=== PATIENT | male | born 1945 | race Caucasian/White ===

== ENCOUNTER 2019-04-08 08:23 | Outpatient (CLI) | payer MEDICARE, MEDICAID, SELFPAY | END 2019-04-08 08:24 | disposition home or self-care (01) | LOC: ONCMED 08:34 | PROVIDERS: Family Provider Nurse Practitioner; PCP Nurse Practitioner; Visit Provider Internal Medicine Hematology & Oncology | DX: Z45.2 Encounter for adjustment and management of vascular access device (principal) | CPT/HCPCS: 96523 ==

== ENCOUNTER 2019-05-06 07:52 | Outpatient (CLI) | payer MEDICARE, MEDICAID, SELFPAY | END 2019-05-06 07:53 | disposition home or self-care (01) | LOC: ONCMED 07:54 | PROVIDERS: Family Provider Nurse Practitioner; PCP Nurse Practitioner; Visit Provider Nurse Practitioner | DX: Z45.2 Encounter for adjustment and management of vascular access device (principal) | CPT/HCPCS: 96523 ==

== ENCOUNTER → 2019-06-01 12:43 | Outpatient (BNVA) | payer MEDICARE, MEDICAID, SELFPAY | PROVIDERS: Family Provider Nurse Practitioner; PCP Nurse Practitioner; Visit Provider Urology | DX: C61 Malignant neoplasm of prostate (principal); N40.1 Benign prostatic hyperplasia with lower urinary tract symptoms; R35.1 Nocturia | CPT/HCPCS: 81001; 84153 ==

== ENCOUNTER 2019-08-23 09:59 | Outpatient (CLI) | payer MEDICARE, MEDICAID, SELFPAY ==
[2019-08-24 11:42] LABS: Angiotensin Converting Enzyme 50 U/L (9-67)
[2019-08-30 13:25] LABS: Blood Urea Nitrogen 16 mg/dL (8-23)
== END 2019-08-23 10:00 | disposition home or self-care (01) ==
PROVIDERS: PCP Nurse Practitioner; Visit Provider Internal Medicine Critical Care Medicine
DX: D86.9 Sarcoidosis, unspecified (principal)
CPT/HCPCS: 82164

== ENCOUNTER 2019-08-30 12:45 | Outpatient (CLI) | payer MEDICARE, MEDICAID, SELFPAY ==
--- NOTE | 2019-08-30 13:00 | CT_ITS ---
WS: [id number] NONCONTRAST AND CONTRAST-ENHANCED CT OF THE CHEST TECHNIQUE: Noncontrast and contrast-enhanced CT of the chest with coronal and sagittal reformatted im ages. CLINICAL INFORMATION: Lung nodule COMPARISON: None. DLP: 1841.[address] scans at [facility] use at least one of these dose optimization techniques: automat ed exposure control; mA and/or kV adjustment per patient size (includes targeted exams where dose is matched to clinical indication); or iterative reconstruction. FINDINGS: Numerous noncalcified pulmonary nodules consistent with metastatic disease the largest in the right l ower lobe posteriorly measuring 2.4 x 2.0 cm. This previously on the prior PET/CT measured 1.5 x 1.0 cm. Additional large right suprahilar mass with narrowing of the right proximal upper lobe bronchus m easuring 3.5 x 2.4 CM. Previously this measured 2.5 x 1.6 cm. Numerous progressed and new noncalcified pulmonary nodules in both lungs. Additional notable nodules in the right upper lobe anteriorly measuring 1.4 cm, right lower lobe posteriorly measuring 1.4 and 0 .6 cm. Numerous smaller left upper lobe nodules and left lower lobe subpleural nodules the largest me asuring 1.2 CM. Findings are consistent with progression of disease. Normal caliber thoracic aorta. Right hilar lymphadenopathy. No axillary lymphadenopathy. Coronary milla cification. Adrenal glands are normal. Small esophageal hiatal hernia. Cholecystectomy clips. Tiny ri ght high attenuation renal cortical lesion measuring 5 mm likely small hemorrhagic cyst. Mild thoraci c kyphosis. Chronic right rib fractures with callus formation. CT/CT chest wo/w con [id number] IMPRESSION: 1. Evidence of interval progression of disease since the prior PET/CT June. 2. Largest nodules in the right lower lobe posteriorly and right supra hilum w ith narrowing of the right upper lobe bronchus described above. 3. Numerous additional new and progressed pulmonary nodules throughout both jeff ngs. 4. Right hilar lymphadenopathy. 5. No axillary lymphadenopathy.
[2019-08-30] MEDS: iohexol 300 mg/mL 100 mL Btl IV (13:35)
== END 2019-08-30 12:46 | disposition home or self-care (01) ==
LOC: RADWPI 12:50
PROVIDERS: PCP Nurse Practitioner; Visit Provider Internal Medicine Critical Care Medicine
DX: R91.1 Solitary pulmonary nodule (principal); R59.1 Generalized enlarged lymph nodes
CPT/HCPCS: 71270; 82565; 84520; Q9967

== ENCOUNTER 2019-09-02 05:55 | Day surgery (SDC) | payer MEDICARE, MEDICAID, SELFPAY ==
[2019-09-01 14:01] VITALS: BMI 27.3
[2019-09-02] VITALS (12 sets, daily range): BP systolic 102–144; BP diastolic 67–86; PULSE 75–116; RESP 15–22; TEMP 36.1–36.4; O2SAT 93–99
[2019-09-02] MEDS: sodium chloride 0.9% 1,000 ML 30 ML IV (06:21)
--- NOTE | 2019-09-02 06:44 | P.ANESASSM_ITS ---
Pre-Anesthetic Assessment Pre-Anesthetic Assessment: Height/Weight: Height 1.75 m Weight 83.915 kg Temp Pulse Resp BP Pulse Ox 97.1 F L 78 18 144/86 95 09/02/19 06:09 09/02/19 06:09 09/02/19 06:09 09/02/19 06:09 09/02/19 06:09 Preop Diagnosis: Metastatic cancer Proposed Procedure: Operation Date: 09/02/19 07:25 Proposed Procedures p Ebus [id number]/ D86.9(Not Applicable) - Linda Esquivel MD Last intake: Intake Last Liquid Date 09/02/19 Last Liquid Time 00:15 Last Solid Date 09/01/19 Last Solid Time 23:30 Social: Social History: Tobacco and No alcohol Exam: Pre-Anes Outpt Exam: alert, oriented x 3, clear to auscultation bilater ally (bilat wheezes) and regular rate & rhythm Airway: Submandibular: WNL Cervical ROM: WNL MP: 2 Dentition: Other (upper edenturless, very poor lowers) History/ROS: No significant history except as noted Pulmonary: Pulmonary: COPD and GARAY CV/HEM: CV/HEM: None reported : : None reported Hepatic: Hepatic: None reported GI: GI: GERD (controlled) Metabolic: Metabolic: None reported Musc/skel: Musc/skel: None reported Neuropsych: Neuropsych: Dementia Comments: [place] Anesthetic Plan: ASA status: 4 Anesthesia: Anesthesia Evaluation and General Risk of > 500 ml blood loss (7ml/kg in children): No Meds/Allergies Current Medications: Current Medications Generic Name Dose Route Start Last Admin Trade Name Freq PRN Reason Stop Dose Admin Sodium Chloride 1,000 mls @ 30 ml s/hr 09/02/19 06:15 09/02/19 06:21 Sodium Chloride 0.9% IV 09/03/19 06:14 30 mls/hr .Q24H MARTÍNEZ Administration PFSH Anesthesia PFSH: Medical History BPH loc w urin obs/LUTS Elevated PSA H/O colon cancer, stage III Nocturia Port-A-Cath in place Prostate CA Urinary retention Urinary urgency Surgical History History of liver biopsy S/P appendectomy S/P cholecystectomy S/P colon resection S/P hernia repair Family History Mother , 62 CAD (coronary artery disease) Diabetes Father , 74 Cancer Colon Social History Smoking and tobacco status: current every day smoker cigarettes Packs smoked per day: 1 Years cigarettes smoked: 45 Quit status (tobacco): has tried quititng Alcohol intake: never Lives independently: Yes Household members: none Marital status: Current occupational status: retired History of recent travel: No Current gender identity: Male Data Anesthesia Cardiac Studies: No Data to Display
--- NOTE | 2019-09-02 06:48 | W.PM.OPSUD ---
Surgery/Procedure H&P Update DATE OF PROCEDURE: September 02, 2019 DATE H&P PERFORMED: 08/23/19 H&P UPDATE INFORMATION: I have reviewed H&P completed within last 30 days, I have examined patient prior to procedure and No changes to prior documentation PREOP DIAGNOSIS: Metastatic cancer PLANNED PROCEDURE: Bronchoscopy and endobronchial sound guided transbronchial aspiration of lymph nodes Operation Date: 09/02/19 07:25 Proposed Procedures p Ebus [id number]/ D86.9(Not Applicable) - Biplab MD Alvin
[2019-09-02] MEDS: ipratropium 0.5 mg/2.5 mL Neb INHALATION ×2 (07:15→09:14)
[2019-09-02] MEDS: lidocaine 1% INJ 20 mL INJECTION (08:14)
[2019-09-02] MEDS: EPINEPHrine 1 mg/mL INJ XX (08:15)
--- NOTE | 2019-09-02 09:05 | P.OP_ITS ---
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 Procedure: Name of the procedure: Bronchoscopy with inspection of the airway, endobronchial biopsies,endobronchial ultrasound-guided transbronchial needle aspiration of lymph nodes and control of bleeding. Indication: Multiple pulmonary nodules with right hilar lymphadenopathy suggestive of malignancy in a patient with a previous diagnosis of granulomatous lymphadenitis. Anesthesia: General anesthesia. Local anesthesia: The yesenia in the right and left mainstem bronchi were anesthetized with 1% lidocaine, 3 mL. Description of the procedure: The procedure was explained to the patient and the consent was obtained. The patient was brought to the OR. The patient underwent endotracheal intubation for general anesthesia. Following induction of general anesthesia, the bronchoscope was advanced through the ET tube. The lower trachea appeared to be normal, no endotracheal lesion was seen. The yesenia was sharp. The yesenia, the right and left mainstem bronchi are anesthetized with 1% lidocaine. In a systematic manner bilateral bronchial tree was then examined. The bronchoscope was advanced into the left mainstem bronchus. There was no erythema,mucus or cobblestoning. The left upper lobe, lingula and left lower lo be bronchi were examined up to the third subsegmental level and no abnormalities were identified. There is no endobronchial lesion, active bleeding or mucous plug. The bronchoscope was then introduced into the right mainstem bronchus. Irregular mucosa at the right secondary yesenia narrowing the entrance to the right upper lobe bronchus was identified. Dilated hypervascularity around the lesion was noted as well. The lesion bled with minimal touch. The bronchoscope was not advanced beyond the lesion into the right upper lobe. The right middle lobe and right lower lobe bronchi were examined up to the third subsegmental level and no abnormalities were identified. Endobronchial biopsies were performed from the right secondary yesenia. 4 samples were obtained. The endobronchial ultrasound was introduced through the ET tube. Large lymphadenopathy in the right hilar area was identified. Transbronchial needle aspiration was performed from 10 are, 7, 11 R lymph node groups. Samples: 1. The endobronchial biopsies are sent for histopathology. 2. The transbronchial needle aspiration of the aforementioned lymph node groups were sent for cytology. Complications: There was no immediate complications. The patient was extubated and brought to the PACU in stable condition. Follow-up: 1. Please follow-up with me in 2 weeks time.
[2019-09-02] MEDS: ipratropium-albuterol 3 mL Neb INHALATION (09:57)
[2019-09-02] MEDS: FUROsemide 10 mg/mL SDV 2mL 20 MG IVP (09:59)
== END 2019-09-02 10:30 | disposition home or self-care (01) ==
PROVIDERS: PCP Nurse Practitioner; Visit Provider Internal Medicine Critical Care Medicine
PROC: BB4BZZZ Ultrasonography of Pleura (ICD-10-PCS; CPT 31625; principal; 2019-09-02 07:25)
DX: I88.8 Other nonspecific lymphadenitis (principal); R91.8 Other nonspecific abnormal finding of lung field; J44.9 Chronic obstructive pulmonary disease, unspecified; K21.9 Gastro-esophageal reflux disease without esophagitis; N40.1 Benign prostatic hyperplasia with lower urinary tract symptoms; N13.8 Other obstructive and reflux uropathy; Z85.46 Personal history of malignant neoplasm of prostate; Z82.49 Family history of ischemic heart disease and other diseases of the circulatory system; Z83.3 Family history of diabetes mellitus; F17.210 Nicotine dependence, cigarettes, uncomplicated
CPT/HCPCS: 31625; 31653; 12345; 80500; 88112; 88305; 94640; J0171; J1940; J2001; J2405; J2704; J2710; J3490; J7030; J7611; J7644

== ENCOUNTER 2019-10-28 05:52 | Day surgery (SDC) | payer MEDICARE, MEDICAID, SELFPAY ==
[2019-10-27 18:03] VITALS: BMI 29.7
[2019-10-28] VITALS (11 sets, daily range): BP systolic 114–150; BP diastolic 76–100; PULSE 77–110; RESP 14–24; TEMP 36.1; O2SAT 91–95
[2019-10-28] MEDS: sodium chloride 0.9% 1,000 ML 30 ML IV (06:13)
--- NOTE | 2019-10-28 06:40 | ANES.PREANE2 ---
Pre-Anesthetic Assessment Pre-Anesthetic Assessment: Height/Weight: Height 1.75 m Weight 91.172 kg Temp Pulse Resp BP Pulse Ox 97.0 F L 88 18 114/85 94 10/28/19 06:00 10/28/19 06:00 10/28/19 06:00 10/28/19 06:00 10/28/19 06:00 Preop Diagnosis: Metastatic cancer Proposed Procedure: Operation Date: 10/28/19 07:00 Proposed Procedures p Veran(Not Applicable) - Linda Esquivel MD s Ebus(Not Applicable) - Linda Esquivel MD Familial anesthetic complications: None Was Beta Charis taken within 24 hours: N/A Last intake: Intake Last Liquid Date 10/27/19 Last Liquid Time 20:00 Last Solid Date 10/27/19 Last Solid Time 20:00 Social: Social History: Tobacco Exam: Pre-Anes Outpt Exam: alert, oriented x 3, clear to auscultation bilaterally and regular rate & rhythm Airway: Cervical ROM: WNL MP: 3 Dentition: Other Additional comments: broken teeth, poor dentition Pulmonary: Pulmonary: COPD Comments: sarcoidsisis, lung nodule : : None reported Hepatic: Hepatic: None reported GI: GI: GERD Metabolic: Metabolic: None reported Musc/skel: Musc/skel: None reported Neuropsych: Neuropsych: None reported Anesthetic Plan: ASA status: 3 Anesthesia: General Risk of > 500 ml blood loss (7ml/kg in children): No Meds/Allergies Current Medications: Current Medications Generic Name Dose Route Start Last Admin Trade Name Freq PRN Reason Stop Dose Admin Sodium Chloride 1,000 mls @ 30 ml s/hr 10/28/19 06:00 10/28/19 06:13 Sodium Chloride 0.9% IV 10/29/19 05:59 30 mls/hr .Q24H MARTÍNEZ Administration PFSH Anesthesia PFSH: Medical History (Updated 09/15/19 @ 11:00 by Linda Esquivel MD) BPH loc w urin obs/LUTS Elevated PSA H/O colon cancer, stage III Nocturia Port-A-Cath in place Prostate CA Urinary retention Urinary urgency Surgical History History of liver biopsy S/P appendectomy S/P cholecystectomy S/P colon resection S/P hernia repair Family History Mother , 62 CAD (coronary artery disease) Diabetes Father , 74 Cancer Colon Social History Smoking and tobacco status: current every day smoker cigarettes Packs smoked per day: 1 Years cigarettes smoked: 45 Quit status (tobacco): has tried quititng Alcohol intake: never Lives independently: Yes Household members: none Marital status: Current occupational status: retired History of recent travel: No Current gender identity: Male Data Anesthesia Cardiac Studies: No Data to Display
[2019-10-28] MEDS: ipratropium 0.5 mg/2.5 mL Neb INHALATION (06:56)
--- NOTE | 2019-10-28 06:57 | W.PM.OPSFHP ---
Same Day Surgery H&P Indication for Procedure/HPI DATE OF PROCEDURE: October 28, 2019 CHIEF COMPLAINT/INDICATIONFOR SURGICAL PROCEDURE: Suspected metastatic cancer PREOP DIAGNOSIS: Metastatic cancer PLANNED PROCEDRUE: Bronchoscopy with inspection of the airway, possible endobronchial and transbronchial biopsies, bronchoalveolar lavage, endobronchial ultrasound-guided transbronchial needle aspiration of lymph nodes and control of bleeding. Operation Date: 10/28/19 07:00 Proposed Procedures p Veran(Not Applicable) - Linda Esquivel MD s Ebus(Not Applicable) - Linda Esquivel MD This is a 73-year-old gentleman with a history of rectal cancer. The patient was found to have midsternal and hilar lymphadenopathy on previous CT scan and underwent medicine anoscopy and biopsy of the 4R lymph node station which was consistent with granulomatous lymphadenitis. The patient was diagnosed with sarcoidosis. During his last office visit in August I had repeated the CT scan of his chest. The chest CT scan revealed numerous noncalcified pulmonary nodule with the largest one measuring 2.4 x 2 cm.The patient also had right suprahilar lesion with narrowing of the right upper lobe bronchus. There is also right hilar lymphadenopathy. I had performed a bronchoscopy and EBUS. TheRight secondary yesenia endobronchial biopsy revealed benign bronchial mucosa with chronic bronchitis and focal squamous metaplasia. There was no malignancy or granulomas. The endobronchial ultrasound-guided transbronchial needle aspiration of station 11 R7 and 10 are did not reveal any malignancy. Station 11 R lymph node biopsy revealed significant macrophages and histiocytes. On the PET scan the patient had increased activity of the pulmonary nodules as well as lymph nodes. There is concern for metastatic cancer. The patient is here today for repeat bronchoscopy to rule out malignancy. Patient is complaining of hemoptysis for the past few days. Medications/Allergies* Home Medications Medication Instructions Recorded Confirmed Type omeprazole magnesium 20 mg 20 mg PO DAILY 06/01/19 10/27/19 History tablet,delayed release Allergies/Adverse Reactions Allergy/AdvReac Type Severity Reaction Status Date / Time No Known Allergies Allergy Verified 09/15/19 10:53 Current Medications: Generic Name Dose Route Start Last Admin Trade Name Freq PRN Reason Stop Dose Admin Sodium Chloride 1,000 mls @ 30 mls/hr 10/28/19 06:00 10/28/19 06:13 Sodium Chloride 0.9% IV 10/29/19 05:59 30 mls/hr .Q24H MARTÍNEZ Administration Pertinent History/Comorbid Conditions* Medical History (Updated 09/15/19 @ 11:00 by Linda Esquivel MD) BPH loc w urin obs/LUTS Elevated PSA H/O colon cancer, stage III Nocturia Port-A-Cath in place Prostate CA Urinary retention Urinary urgency Surgical History (Updated 08/23/19 @ 09:48 by Linda Esquivel MD) History of liver biopsy S/P appendectomy S/P cholecystectomy S/P colon resection S/P hernia repair Family History (Updated 05/27/19 @ 08:42 by Maggi Mcneal RN) Father, 74 Mother, 62 Diabetes Mother CAD (coronary artery disease) Mother Cancer Father Colon Social History Smoking and tobacco status: current every day smoker cigarettes Packs smoked per day: 1 Years cigarettes smoked: 45 Quit status (tobacco): has tried quititng Alcohol intake: never Lives independently: Yes Household members: none Marital status: Current occupational status: retired History of recent travel: No Current gender identity: Male Pertinent Exam Findings alert and oriented x 3 General: Patient is in no acute distress. Patient is very hard of hearing and difficult to communicate with Neck: No JVD, no cervical or supraclavicular lymphadenopathy. Respiratory: Inspection: No visible deformity of the chest wall Palpation: Trachea is mildly deviated to the right, bilateral symmetric expansion Percussion: Bilateral tympanic percussion note both anterior and posteriorly Auscultation: Bilateral vesicular breath sound with prolonged expiration, no crackles or wheezing but occasional rhonchi Cardiovascular: Regular rate and rhythm, S1-S2 present, distant heart sound, no murmur,no peripheral edema Abdomen: Soft, nontender, nondistended, positive bowel sound Lymphatic: The axillary and inguinal lymph node groups are not examined Neuro: Mental status is normal, no gross cranial nerve deficit, normal motor and coordination. The patient is severely hearing impaired. Recommendations Surgery/Procedure today Coding Level of Care Code Acute Patient Safety Officer for Izabel Rojas
[2019-10-28] MEDS: lidocaine 1% INJ 20 mL SUBCUT (07:20)
--- NOTE | 2019-10-28 08:33 | PM.OP ---
Operative Report Date of procedure: October 28, 2019 Pre-op Diagnosis: Metastatic cancer Post-op diagnosis: same Brief History: This is a 73-year-old gentleman with history of rectal cancer coming in for bronchoscopic evaluation for suspected metastatic cancer. Procedure: Name of the procedure: Bronchoscopy with inspection of the airway, bronchoalveolar lavage, endobronchial biopsies, Cytobrush, endobronchial ultrasound-guided transbronchial needle aspiration of lymph nodes and control of bleeding. Indication: Pulmonary nodule in perilymphatic distribution and hilar and mediastinal lymphadenopathy with calcification. Anesthesia: General anesthesia. Local anesthesia: The yesenia in the right and left mainstem bronchi were anesthetized with 1% lidocaine, 3 mL. Description of the procedure: The procedure was explained to the patient and the consent was obtained. The patient was brought to the OR. The patient underwent endotracheal intubation for general anesthesia. Following induction of general anesthesia, the bronchoscope was advanced through the ET tube. The lower trachea appeared to be normal, no endotracheal lesion was seen. The yesenia was sharp. The yesenia, the right and left mainstem bronchi are anesthetized with 1% lidocaine. In a systematic manner bilateral bronchial tree was then examined. The bronchoscope was advanced into the left mainstem bronchus. There was no erythema,mucus or areas of cobblestoning. The left upper lobe, lingula and left lower lobe bronchi were examined up to the third subsegmental level and no abnormalities were identified. The bronchoscope was then introduced into the right mainstem bronchus. A fungating mass was seen at the orifice of the right upper lobe bronchus with complete occlusion of the airway. The right middle lobe and right lower lobe bronchi were examined up to the third subsegmental level and no abnormalities were identified. Endobronchial biopsies were performed from the right upper lobe endoluminal lesion. Multiple samples are obtained. Bronchial washing was performed from the right upper lobe bronchus. Endobronchial biopsies were performed from the left upper lobe. 3 specimens were obtained. The endobronchial ultrasound was introduced through the ET tube. Mediastinal and hilar lymphadenopathy was identified with the ultrasound. Transbronchial needle aspiration was performed from 7, 10 R lymph nodes. Samples: 1. Bronchoalveolar lavage specimen was sent for cytology. 2. The endobronchial biopsies are sent for histopathology. 3. The transbronchial needle aspiration of the aforementioned lymph node groups were sent for cytology. Complications: There was no immediate complications. There is no significant bleeding. The patient was extubated and brought to the PACU in stable condition.
[2019-10-28] MEDS: EPINEPHrine 1 mg/mL INJ XX (08:58)
--- NOTE | 2019-10-31 06:58 | SUR.OPER ---
10/28/19 AT 0830 BALLOON REMOVED INTACT FROM EBUS [facility]
== END 2019-10-28 09:58 | disposition home or self-care (01) ==
PROVIDERS: PCP Nurse Practitioner; Visit Provider Internal Medicine Critical Care Medicine
PROC: BB4BZZZ Ultrasonography of Pleura (ICD-10-PCS; 2019-10-28 07:00)
DX: C20 Malignant neoplasm of rectum (principal); C78.00 Secondary malignant neoplasm of unspecified lung; N40.1 Benign prostatic hyperplasia with lower urinary tract symptoms; N13.8 Other obstructive and reflux uropathy; Z85.46 Personal history of malignant neoplasm of prostate; J44.9 Chronic obstructive pulmonary disease, unspecified; K21.9 Gastro-esophageal reflux disease without esophagitis; F17.210 Nicotine dependence, cigarettes, uncomplicated
CPT/HCPCS: 12345; 31625; 31627; 88112; 88173; 88305; 94640; C1713; J0171; J1100; J2370; J2405; J2704; J2710; J3010; J3490; J7030; J7611; J7644

== ENCOUNTER 2019-11-08 13:41 | Outpatient (CLI) | payer MEDICARE, MEDICAID, SELFPAY ==
--- NOTE | 2019-11-08 15:55 | ONC FU_ITS ---
follow up note Patient: Oswaldo Khan Unit #: [id number]: 1945 Dicatated By: Paula Singh M.D.Date of Visit:Nov 08, 2019 Onc Med Follow-up/Prog Note History of Present Illness: is a 72-year-old gentleman with history of abdominal pain and rectal bleed underwent colonoscopy and was found to have a rectal mass. A biopsy was obtained and it confirmed adenocarcinoma. Mr Khan then underwent low anterior resection on 03/05/2017. The final pathology report showed invasive adenocarcinoma , tumor invades perirectal adipose and 1 out of 18 lymph nodes was positive with extranodal extension and no loss of nuclear expression of MMR protein . Mr Khan also has history of elevated PSA. On 03/12/2017 his PSA was 35.20. As per patient he has seen Dr. Sunil Martinez , urologist, who is following him and CT scan of abdomen pelvis done on 03/19/2017 showed some prominent retroperitoneal lymph nodes somewhat more prominent than in 2013 Mr Khan took combined chemoradiation for 3 days the first week but then accidentally pulled his Mcarthur cath and sustained urethral injury. He was evaluated by Dr. Martinez and underwent cystoscopy exam and reinsertion of Mcarthur cath, during this time combined chemoradiation therapy was on hold. He resumed 4 weeks after . Patient was advised to take Xeloda daily for 5 days per week during radiation therapy. His Xeloda daily the days of radiation only was held few days due to persistent diarrhea. He concluded his chemoradiation on 11/03/2017. The diarrhea resolved at that time. Mr. Khan has been advised to pursue adjuvant chemotherapy with FOLFOX. had a long discussion regarding the role of adjuvant chemotherapy. he agreed to get Port-A-Cath placement but then at the last minute he changed his mind. Since that time though, he has agreed to pursue the recommended adjuvant chemotherapy. He completed 2 cycles of modified FOLFOX as of 03/04/2018. At his 03/16/2018 appointment, he stated had been having increased abdominal pain and decreased energy. He stated that he did not complete the full 2 days of the fluorouracil pump last one and this he felt like it was making me feel pretty bad . CT scan of the abdomen was done on on 03/19/2018 show stable rectosigmoid anastomosis with no recurrent or adjacent adenopathy. Moderate diffuse constipation. , at the patient's request and and his refusal to continue with 5-FU infusion, changed the chemotherapy plan of care to XELOX on 03/23/2018 and with the plan to give him 6 cycles. Mr. Khan is tolerated it well at this time. 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 He has completed 5/6 cycles thus far .At patient's request Adjuvant chemotherapy with xelox concluded on 07/05/2018 CT scan of abdomen pelvis done on 09/23/2018 showed no acute findings but 1.3 cm nodule in the right lower lobe of the lung. CT PET scan done on 11/06/2018 showed enlarged prostate with diffusely increase uptake Malignant appearing right lung nodules, most likely from colonic carcinoma Malignant mediastinal lymph nodes, most likely from colonic carcinoma No evidence for local prostate metastatic nodes. Normal activity at rectal anastomosis. Since his last visit to oncology clinic patient has seen Dr. Esquivel stamp maker who did bronchoscopy and patient was diagnosed with sarcoidosis which was treated with some success and follow-up CT scan of chest done on August 30, 2019 showed evidence of interval progression of disease with bilateral pulmonary nodules largest nodule in the right lower lobe posteriorly and right suprahilar with narrowing of right upper lobe bronchus and numerous additional new and progressive pulmonary nodules throughout both lungs right hilar lymphadenopathy, patient underwent bronchoscopy and endobronchial ultrasound-guided transbronchial needle aspiration of station 11 R, showed significant macrophages and histiocytes but no malignancy but there was a concern about possibility of malignancy so patient underwent second bronchoscopy on October 28, 2019 which showed a fungating mass was seen at the orifice of right upper lobe bronchus with complete occlusion of airways. The right middle lobe and right lower lobe bronchi were examined up to third subsegmental with no abnormality. Biopsy was obtained came back positive for metastatic colorectal adenocarcinoma as immunohistochemistry stain were positive for CK20 and CDX2.. Came for follow-up, denies any specific complaints no hemoptysis or hematemesis, no headaches or blurred vision, no jaundice, no diarrhea or constipation, no melena or hematochezia, appetite is reasonable, still has persistent fingertips numbness not in the lower extremity. Medications: Ibuprofen 3 Tablet (of 200 mg) Oral daily PRN, PriLOSEC Capsule Delayed Release Oral daily Allergies: No Known Allergies. Review of Systems: Constitutional - His energy level is fair. Appetite is good and weight is stable. No fever, chills, hot flashes, or night sweats, ENMT - He has sinus congestion/drainage. No mouth sores. No sore throat or difficulty swallowing, Hematologic/Lymphatic - No abnormal bruising or bleeding, Respiratory - He has shortness of breath with activity. He still has cough. No pleuritic pain or hemoptysis, Cardiovascular - No angina pain. No palpitations, Gastrointestinal - No nausea or vomiting. No heartburn or acid reflux. No diarrhea and constipation. No blood in the stool or black stools, Genitourinary (M) - No dysuria or hematuria. He has urinary frequency. No urgency or incontinence, Musculoskeletal - No joint or bone pain, Integumentary - No skin ulcers or open wounds. Denies any rash or skin lesions, Neurologic - No headache or dizziness. No numbness/paresthesias or other focal neurologic symptoms, Psychiatric - No anxiety or depression. No insomnia. Vital Signs: Performed on Nov 08, 2019 14:00 Height - 70.00 in Weight - 195.0 lbs (HIGH) BSA - 2.06 sq.m BMI - 27.98 Temperature - 97.6 F (LOW) Pulse - 105 /min (HIGH) Respiration - 20 /min BP - 129/81 mm(hg) O2 Sat - 96 % Pain - 0 Performance Status: 1 - No physically strenuous activity, but ambulatory and able to carry out light or sedentary work (e.g. office work, light house work). (ECOG) Physical Examination: ENMT - No mouth sores, no thrush, no jaundice, Respiratory - Poor air entry, otherwise clear, Cardiovascular - Regular rate and rhythm of heart, Abdomen - Soft, bowel sounds present, Extremities - No visible edema. Lab/Imaging: Most recent lab results are not available for this patient. Impression: Recurrent colorectal adenocarcinoma involving bilateral lungs and mediastinum, per bronchoscopy done on October 28, 2019 which showed fungating mass in right upper bronchus and immunohistochemistry confirmed CK20, CDX positive. History of sarcoidosis h/o Invasive adenocarcinoma of upper rectum status post APR on 03/05/2017 final pathology showed tumor size 5.5 x 5.4 cm low-grade, tumor invades perirectal adipose p T3, lymphovascular invasion present, no perineural invasion seen 1 out of 18 positive lymph nodes N1a , extranodal extension present N1 stage IIIA No loss of nuclear expression of MMR protein Elevated PSA, on 03/12/2017 it was 35.20 with prostate enlargement, being followed by Dr. Martinez. s/p chemoradiation with Xeloda as chemosensitizer. till 11/03/17 discussed with patient regarding the role of adjuvant chemotherapy in stage IIIa rectal cancer, as literature has shown adjuvant chemotherapy improves disease-free survival. Patient has been reluctant to consider chemotherapy because of severe diarrhea during chemoradiation for rectal CA. He was assured that we will adjust/modify his adjuvant chemotherapy to make it tolerable. Patient, now agreed to get port placement and for adjuvant chemotherapy modified FOLFOX every 2 weeks ???12. All the side effect and possible benefits were discussed in detail again and patient expressed understanding. Mr Khan agreed. He was referred back to Dr. Merritt for Port-A-Cath placement and began his first cycle of FOLFOX on 02/09/2018 .Patient developed abdominal pain for which he underwent CT scan of abdomen on 03/19/2018 showed moderate constipation, and stable rectosigmoid anastomosis with no recurrent mass or adjacent adenopathy and bilateral lower lobe pulmonary nodules are stable since 02/03/2017. No evidence of metastatic disease elsewhere. Following day patient had large bowel movement and since then no more abdominal pain. Patient expressed intolerance to 5-FU infusion chemotherapy and also consider it inconvenient so requesting Xeloda pills instead of 5-FU infusion. His treatment plan was changed to XELOX beginning 03/23/2018. He has tolerated it well thus far. He has now completed5 of the planned [address] PET scan done on 11/06/2018 showed prostate is enlarged, measuring 6 cm in diameter with diffusely increased FDG activity, most intense in the central prostate. Normal tracer activity at the rectal anastomosis There are 2 pulmonary nodules in the right lower lobe and one in the right upper lobe, the index nodule in the right lower lobe measuring 1.1 x 1.6 cm with SUV of 3.5. Most consistent with metastatic disease, likely from colonic primary. Multiple hypermetabolic mediastinal lymph nodes are present, consistent with metastatic disease, in the inferior right perihilar 1.9 cm, 5.2 SUV. Subcarinal, prevascular, right paratracheal, 1.9 cm, 6.8 SUV. Right hilar territories. Subcentimeter nodes are also noted in the superior right paratracheal region. Too small to characterize. Plan: . 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 MMR D/MSI status, if positive, may consider pembrolizumab Or nivolumab or HER-2/peggy status, if positive then Herceptin based regimen also check K-qasim/Nras /BRAF status. While it may take 3 to 4 weeks to get reports back but patient and his son wants to start some form of treatment as soon as possible, in that case we will consider a Avastin/FOLFIRI, considering his age and comorbid condition we will modify his FOLFIRI dose and titrate up as tolerated all the side effects, possible benefits associated with a Avastin/FOLFIRI were discussed including but not limited to nausea vomiting, hair loss, bone marrow suppression, diarrhea especially with irinotecan, worsening of peripheral neuropathy, liver toxicity, skin rash, jaundice, hand-foot syndrome especially with 5-FU mouth sores diarrhea, were discussed, further teaching will be done by chemotherapy nurse. Also discussed about hospice care, patient wants to try treatment and if he could not tolerate or there is a disease progression then he will consider. Patient still smoking, he was advised to quit smoking and was offered any assistance he may need. Patient will return to clinic in 1 week with CBC CMP and CEA, Signed By: Paula Singh M.D. <<Signature on File>>
[2019-11-08 16:30] LABS: Basophils # 0.1 10^3/uL (0.0-0.1); Basophils % 1.3 %; Eosinophils # 0.2 10^3/uL (0.0-0.8); Eosinophils % 2.1 %; Hemoglobin 13.3 g/dL (11.7-16.6); Lymphocytes # 1.6 10^3/uL (0.8-4.8); Lymphocytes % 16.7 %; Mean Corpuscular HGB Conc 32.4 g/dL (30.0-36.0); Mean Corpuscular Hemoglobin 26.2 pg (28.0-34.0); Mean Corpuscular Volume 80.9 fL (80-94); Mean Platelet Volume 10.1 fL (7.4-10.4); Monocytes # 0.7 10^3/uL (0.2-0.9); Monocytes % 7.7 %; Neutrophils # 6.84 10^3/uL (1.8-7.7); Neutrophils % 71.7 %; Nucleated Red Blood Cells % 0 %; Platelet Count 325 10^3/cmm (130-400); Red Blood Count 5.07 10^6/uL (4.1-5.3); Red Cell Distribution Width 14.5 % (12.1-15.1); White Blood Count 9.5 10^3/uL (4.0-10.0)
[2019-11-08 17:02] LABS: Alanine Aminotransferase 23 U/L (0-41); Albumin Level 4.3 g/dL (3.5-5.2); Alkaline Phosphatase 113 IU/L (40-130); Aspartate Amino Transferase 17 U/L (0-40); Blood Urea Nitrogen 14 mg/dL (8-23); Calcium 9.5 mg/dL (8.5-10.5); Carbon Dioxide 22 mmol/L (22-29); Chloride 101 mmol/L (98-107); Globulin 3.2 g/dL (1.3-4.6); Glucose 107 mg/dL (65-115); Osmolality Calculated 275 mOsm/kg (285-295); Sodium 134 mmol/L (136-145); Total Bilirubin 0.3 mg/dL (0.15-1.2); Total Protein 7.5 g/dL (6.6-8.7)
== END 2019-11-08 13:42 | disposition home or self-care (01) ==
LOC: ONCMED 13:45
PROVIDERS: PCP Nurse Practitioner; Visit Provider Internal Medicine Hematology & Oncology
DX: C78.01 Secondary malignant neoplasm of right lung (principal); C78.02 Secondary malignant neoplasm of left lung; C78.1 Secondary malignant neoplasm of mediastinum; C19 Malignant neoplasm of rectosigmoid junction; F17.200 Nicotine dependence, unspecified, uncomplicated; Z92.21 Personal history of antineoplastic chemotherapy; Z92.3 Personal history of irradiation; Z90.49 Acquired absence of other specified parts of digestive tract
CPT/HCPCS: 36415; 36593; 80053; 82378; 85025; 96374; 99214; J2997

== ENCOUNTER 2019-12-02 05:37 | Outpatient (RCR) | payer MEDICARE, MEDICAID, SELFPAY ==
[2019-11-16 10:34] LABS: Basophils # 0.1 10^3/uL (0.0-0.1); Basophils % 1.1 %; Eosinophils # 0.2 10^3/uL (0.0-0.8); Eosinophils % 2.9 %; Hematocrit 37.5 % (42.0-52.0); Lymphocytes # 1.3 10^3/uL (0.8-4.8); Lymphocytes % 17.8 %; Mean Corpuscular Hemoglobin 26.4 pg (28.0-34.0); Mean Corpuscular Volume 82.4 fL (80-94); Mean Platelet Volume 9.7 fL (7.4-10.4); Monocytes # 0.6 10^3/uL (0.2-0.9); Monocytes % 7.9 %; Neutrophils # 5.24 10^3/uL (1.8-7.7); Nucleated Red Blood Cells % 0 %; Platelet Count 268 10^3/cmm (130-400); Red Blood Count 4.55 10^6/uL (4.1-5.3); Red Cell Distribution Width 14.5 % (12.1-15.1); White Blood Count 7.5 10^3/uL (4.0-10.0)
[2019-11-16 10:51] LABS: Alanine Aminotransferase 15 U/L (0-41); Albumin Level 3.9 g/dL (3.5-5.2); Alkaline Phosphatase 115 IU/L (40-130); Aspartate Amino Transferase 15 U/L (0-40); Blood Urea Nitrogen 13 mg/dL (8-23); Calcium 8.9 mg/dL (8.5-10.5); Carbon Dioxide 25 mmol/L (22-29); Chloride 104 mmol/L (98-107); Globulin 3.1 g/dL (1.3-4.6); Glucose 126 mg/dL (65-115); Osmolality Calculated 282 mOsm/kg (285-295); Sodium 137 mmol/L (136-145); Total Bilirubin 0.3 mg/dL (0.15-1.2)
[2019-11-16] MEDS: atropine 1 mg/mL SDV 1 mL 0.4 MG IV (11:17)
[2019-11-16] MEDS: sodium chloride 0.9% 250 ML 75 ML IV (11:17)
[2019-11-30] MEDS: alteplase 1 mg/mL SDV 2 mL 2 MG INTRACATH ×2 (08:30→09:32)
[2019-11-30 08:38] LABS: Basophils # 0.1 10^3/uL (0.0-0.1); Basophils % 1.2 %; Eosinophils # 0.2 10^3/uL (0.0-0.8); Hemoglobin 12.5 g/dL (11.7-16.6); Lymphocytes # 1.1 10^3/uL (0.8-4.8); Lymphocytes % 18.6 %; Mean Corpuscular HGB Conc 32.1 g/dL (30.0-36.0); Mean Corpuscular Hemoglobin 26.1 pg (28.0-34.0); Mean Corpuscular Volume 81.4 fL (80-94); Mean Platelet Volume 9.4 fL (7.4-10.4); Monocytes # 0.4 10^3/uL (0.2-0.9); Monocytes % 7.4 %; Neutrophils % 69.5 %; Nucleated Red Blood Cells % 0 %; Platelet Count 284 10^3/cmm (130-400); Red Blood Count 4.79 10^6/uL (4.1-5.3); Red Cell Distribution Width 14.5 % (12.1-15.1); White Blood Count 5.9 10^3/uL (4.0-10.0)
[2019-11-30 09:04] LABS: Alanine Aminotransferase 22 U/L (0-41); Albumin Level 3.9 g/dL (3.5-5.2); Alkaline Phosphatase 102 IU/L (40-130); Blood Urea Nitrogen 14 mg/dL (8-23); Calcium 9.3 mg/dL (8.5-10.5); Carbon Dioxide 23 mmol/L (22-29); Chloride 103 mmol/L (98-107); Globulin 2.9 g/dL (1.3-4.6); Glucose 175 mg/dL (65-115); Osmolality Calculated 280 mOsm/kg (285-295); Sodium 135 mmol/L (136-145); Total Bilirubin 0.2 mg/dL (0.15-1.2); Total Protein 6.8 g/dL (6.6-8.7)
[2019-11-30 09:08] LABS: Anion Gap 13.4 (5-19); Aspartate Amino Transferase 19 U/L (0-40); Potassium 4.4 mmol/L (3.5-5.1)
[2019-11-30] MEDS: atropine 1 mg/mL SDV 1 mL 0.4 MG IV (11:22)
[2019-11-30] MEDS: sodium chloride 0.9% 250 ML 75 ML IV (11:22)
--- NOTE | 2019-12-02 16:39 | ONC FU_ITS ---
follow up note Patient: Oswaldo Khan Unit #: [id number]: 1945 Dicatated By: Paula Singh M.D.Date of Visit:Nov 30, 2019 Onc Med Follow-up/Prog Note History of Present Illness: is a 72-year-old gentleman with history of abdominal pain and rectal bleed underwent colonoscopy and was found to have a rectal mass. A biopsy was obtained and it confirmed adenocarcinoma. Mr Khan then underwent low anterior resection on 03/05/2017. The final pathology report showed invasive adenocarcinoma , tumor invades perirectal adipose and 1 out of 18 lymph nodes was positive with extranodal extension and no loss of nuclear expression of MMR protein . Mr Khan also has history of elevated PSA. On 03/12/2017 his PSA was 35.20. As per patient he has seen Dr. Sunil Martinez , urologist, who is following him and CT scan of abdomen pelvis done on 03/19/2017 showed some prominent retroperitoneal lymph nodes somewhat more prominent than in 2013 Mr Khan took combined chemoradiation for 3 days the first week but then accidentally pulled his Mcarthur cath and sustained urethral injury. He was evaluated by Dr. Martinez and underwent cystoscopy exam and reinsertion of Mcarthur cath, during this time combined chemoradiation therapy was on hold. He resumed 4 weeks after . Patient was advised to take Xeloda daily for 5 days per week during radiation therapy. His Xeloda daily the days of radiation only was held few days due to persistent diarrhea. He concluded his chemoradiation on 11/03/2017. The diarrhea resolved at that time. Mr. Khan has been advised to pursue adjuvant chemotherapy with FOLFOX. had a long discussion regarding the role of adjuvant chemotherapy. he agreed to get Port-A-Cath placement but then at the last minute he changed his mind. Since that time though, he has agreed to pursue the recommended adjuvant chemotherapy. He completed 2 cycles of modified FOLFOX as of 03/04/2018. At his 03/16/2018 appointment, he stated had been having increased abdominal pain and decreased energy. He stated that he did not complete the full 2 days of the fluorouracil pump last one and this he felt like it was making me feel pretty bad . CT scan of the abdomen was done on on 03/19/2018 show stable rectosigmoid anastomosis with no recurrent or adjacent adenopathy. Moderate diffuse constipation. , at the patient's request and and his refusal to continue with 5-FU infusion, changed the chemotherapy plan of care to XELOX on 03/23/2018 and with the plan to give him 6 cycles. Mr. Khan is tolerated it well at this time. 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 He has completed 5/6 cycles thus far .At patient's request Adjuvant chemotherapy with xelox concluded on 07/05/2018 CT scan of abdomen pelvis done on 09/23/2018 showed no acute findings but 1.3 cm nodule in the right lower lobe of the lung. CT PET scan done on 11/06/2018 showed enlarged prostate with diffusely increase uptake Malignant appearing right lung nodules, most likely from colonic carcinoma Malignant mediastinal lymph nodes, most likely from colonic carcinoma No evidence for local prostate metastatic nodes. Normal activity at rectal anastomosis. Since his last visit to oncology clinic patient has seen Dr. Esquivel dipper operator who did bronchoscopy and patient was diagnosed with sarcoidosis which was treated with some success and follow-up CT scan of chest done on August 30, 2019 showed evidence of interval progression of disease with bilateral pulmonary nodules largest nodule in the right lower lobe posteriorly and right suprahilar with narrowing of right upper lobe bronchus and numerous additional new and progressive pulmonary nodules throughout both lungs right hilar lymphadenopathy, patient underwent bronchoscopy and endobronchial ultrasound-guided transbronchial needle aspiration of station 11 R, showed significant macrophages and histiocytes but no malignancy but there was a concern about possibility of malignancy so patient underwent second bronchoscopy on October 28, 2019 which showed a fungating mass was seen at the orifice of right upper lobe bronchus with complete occlusion of airways. The right middle lobe and right lower lobe bronchi were examined up to third subsegmental with no abnormality. Biopsy was obtained came back positive for metastatic colorectal adenocarcinoma as immunohistochemistry stain were positive for CK20 and CDX2.. Started on systemic chemotherapy with a Avastin/FOLFIRI on November 16, 2019 Came for follow-up, patient denies any specific complaint except diarrhea and nausea for 2 to 3 days after the chemotherapy but responded well to antidiarrheal and antiemetic otherwise denies any mouth sores, denies any jaundice denies any melena or hematochezia denies any hematuria denies any skin rash. Medications: Ibuprofen 3 Tablet (of 200 mg) Oral daily PRN, PriLOSEC Capsule Delayed Release Oral daily Allergies: No Known Allergies. Review of Systems: Constitutional - His energy level is fair. Appetite is good and weight is stable. No fever, chills, hot flashes, or night sweats, ENMT - He has sinus congestion/drainage. No mouth sores. No sore throat or difficulty swallowing, Hematologic/Lymphatic - No abnormal bruising or bleeding, Respiratory - He has shortness of breath with activity. He still has cough. No pleuritic pain or hemoptysis, Cardiovascular - No angina pain. No palpitations, Gastrointestinal - No nausea or vomiting. No heartburn or acid reflux. No diarrhea and constipation. No blood in the stool or black stools, Genitourinary (M) - No dysuria or hematuria. He has urinary frequency. No urgency or incontinence, Musculoskeletal - No joint or bone pain, Integumentary - No skin ulcers or open wounds. Denies any rash or skin lesions, Neurologic - No headache or dizziness. No numbness/paresthesias or other focal neurologic symptoms, Psychiatric - No anxiety or depression. No insomnia. Vital Signs: Vitals are not available for this patient. Performance Status: 0 - Fully active, able to carry on all predisease activities without restrictions. (ECOG) Physical Examination: ENMT - No mouth sores, no thrush, no jaundice, Respiratory - Lungs are clear, Cardiovascular - Regular rate and rhythm of heart, Abdomen - Soft, bowel sounds present, Extremities - No visible edema. Lab/Imaging: Test performed on Nov 08, 2019 15:10 Sodium 134 mmol/L Potassium 4.0 mmol/L Chloride 101 mmol/L CO2 22 mmol/L Anion Gap 15.0 BUN 14 mg/dL Creatinine 1.0 mg/dL Cr Clearance (Est) 81.7200 mL/min Glucose 107 mg/dL Calcium 9.5 mg/dL Protein, Total 7.5 g/dL Albumin 4.3 g/dL Globulin 3.2 g/dL Bilirubin, Total 0.3 mg/dL ALT (SGPT) 23 U/L AST (SGOT) 17 U/L Alkaline Phosphatase 113 IU/L WBC 9.5 10 3/uL RBC 5.07 10 6/uL HGB 13.3 g/dL HCT 41.0 % MCV 80.9 fL MCH 26.2 pg MCHC 32.4 g/dL RDW 14.5 % Platelet Count 325 10 3/cmm MPV 10.1 fL Neutrophils 6.84 10 3/uL Lymphocytes 1.6 10 3/uL Monocytes 0.7 10 3/uL Eosinophils 0.2 10 3/uL Basophils 0.1 10 3/uL Neutrophil % 71.7 % Lymphocyte % 16.7 % Monocyte % 7.7 % Eosinophil % 2.1 % Basophils % 1.3 % NRBC % 0 % CEA 3.0 ng/mL Impression: Invasive adenocarcinoma of upper rectum status post APR on 03/05/2017 final pathology showed tumor size 5.5 x 5.4 cm low-grade, tumor invades perirectal adipose p T3, lymphovascular invasion present, no perineural invasion seen 1 out of 18 positive lymph nodes N1a , extranodal extension present N1 stage IIIA No loss of nuclear expression of MMR protein Elevated PSA, on 03/12/2017 it was 35.20 with prostate enlargement, being followed by Dr. Martinez. s/p chemoradiation with Xeloda as chemosensitizer. till 11/03/17 discussed with patient regarding the role of adjuvant chemotherapy in stage IIIa rectal cancer, as literature has shown adjuvant chemotherapy improves disease-free survival. Patient has been reluctant to consider chemotherapy because of severe diarrhea during chemoradiation for rectal CA. He was assured that we will adjust/modify his adjuvant chemotherapy to make it tolerable. Patient, now agreed to get port placement and for adjuvant chemotherapy modified FOLFOX every 2 weeks ???12. All the side effect and possible benefits were discussed in detail again and patient expressed understanding. Mr Khan agreed. He was referred back to Dr. Merritt for Port-A-Cath placement and began his first cycle of FOLFOX on 02/09/2018 .Patient developed abdominal pain for which he underwent CT scan of abdomen on 03/19/2018 showed moderate constipation, and stable rectosigmoid anastomosis with no recurrent mass or adjacent adenopathy and bilateral lower lobe pulmonary nodules are stable since 02/03/2017. No evidence of metastatic disease elsewhere. Following day patient had large bowel movement and since then no more abdominal pain. Patient expressed intolerance to 5-FU infusion chemotherapy and also consider it inconvenient so requesting Xeloda pills instead of 5-FU infusion. His treatment plan was changed to XELOX beginning 03/23/2018. He has tolerated it well thus far. He has now completed5 of the planned [address] PET scan done on 11/06/2018 showed prostate is enlarged, measuring 6 cm in diameter with diffusely increased FDG activity, most intense in the central prostate. Normal tracer activity at the rectal anastomosis There are 2 pulmonary nodules in the right lower lobe and one in the right upper lobe, the index nodule in the right lower lobe measuring 1.1 x 1.6 cm with SUV of 3.5. Most consistent with metastatic disease, likely from colonic primary. Multiple hypermetabolic mediastinal lymph nodes are present, consistent with metastatic disease, in the inferior right perihilar 1.9 cm, 5.2 SUV. Subcarinal, prevascular, right paratracheal, 1.9 cm, 6.8 SUV. Right hilar territories. Subcentimeter nodes are also noted in the superior right paratracheal region. Too small to characterize. Plan: . Discussed with patient regarding his labs white blood count 5.9 hemoglobin 12.5 hematocrit 39 platelets 284,000 CMP within normal limits except glucose 175 Clinically, patient is doing reasonably well, now tolerating systemic chemotherapy with a Avastin/FOLFIRI well but with expected side effects e.g. postchemotherapy diarrhea and nausea but responded well to antidiarrheal/antiemetic and supportive care. At this point we will consider cut down his 5-FU infusional dose by 10% to minimize toxicity and we will proceed with next dose of Avastin/FOLFIRI today and then return to clinic in 2 weeks with CBC CMP. Signed By: Paula Singh M.D. <<Signature on File>>
== END 2019-12-05 23:59 | disposition home or self-care (01) ==
LOC: ONCMED 05:37
PROVIDERS: PCP Nurse Practitioner; Visit Provider Internal Medicine Hematology & Oncology
DX: Z51.11 Encounter for antineoplastic chemotherapy (principal); C19 Malignant neoplasm of rectosigmoid junction; C78.01 Secondary malignant neoplasm of right lung; C77.8 Secondary and unspecified malignant neoplasm of lymph nodes of multiple regions; K52.1 Toxic gastroenteritis and colitis; T45.1X5A Adverse effect of antineoplastic and immunosuppressive drugs, initial encounter; R11.0 Nausea; N40.0 Benign prostatic hyperplasia without lower urinary tract symptoms; D86.0 Sarcoidosis of lung; Z79.899 Other long term (current) drug therapy; Z92.3 Personal history of irradiation
CPT/HCPCS: 36593; 80053; 85025; 96367; 96368; 96375; 96376; 96413; 96415; 96416; 96417; 96523; 99214; J0461; J0640; J1100; J2469; J2997; J7050; J9035; J9206

== ENCOUNTER 2019-12-30 05:43 | Outpatient (RCR) | payer MEDICARE, MEDICAID, SELFPAY ==
[2019-12-14] MEDS: alteplase 1 mg/mL SDV 2 mL 2 MG IV (08:25)
[2019-12-14 08:48] LABS: Basophils # 0.1 10^3/uL (0.0-0.1); Basophils % 1.2 %; Eosinophils # 0.2 10^3/uL (0.0-0.8); Eosinophils % 3.4 %; Hematocrit 35.9 % (42.0-52.0); Hemoglobin 11.7 g/dL (11.7-16.6); Lymphocytes # 1.1 10^3/uL (0.8-4.8); Lymphocytes % 22.6 %; Mean Corpuscular HGB Conc 32.6 g/dL (30.0-36.0); Mean Corpuscular Hemoglobin 26.3 pg (28.0-34.0); Mean Corpuscular Volume 80.7 fL (80-94); Mean Platelet Volume 9.5 fL (7.4-10.4); Monocytes # 0.4 10^3/uL (0.2-0.9); Monocytes % 8.6 %; Neutrophils # 3.21 10^3/uL (1.8-7.7); Nucleated Red Blood Cells % 0 %; Platelet Count 299 10^3/cmm (130-400); Red Blood Count 4.45 10^6/uL (4.1-5.3); Red Cell Distribution Width 14.7 % (12.1-15.1)
[2019-12-14 09:10] LABS: Alanine Aminotransferase 22 U/L (0-41); Albumin Level 3.9 g/dL (3.5-5.2); Alkaline Phosphatase 101 IU/L (40-130); Aspartate Amino Transferase 18 U/L (0-40); Blood Urea Nitrogen 14 mg/dL (8-23); Calcium 9.1 mg/dL (8.5-10.5); Carbon Dioxide 25 mmol/L (22-29); Chloride 102 mmol/L (98-107); Globulin 2.9 g/dL (1.3-4.6); Glucose 126 mg/dL (65-115); Osmolality Calculated 280 mOsm/kg (285-295); Sodium 136 mmol/L (136-145); Total Bilirubin 0.2 mg/dL (0.15-1.2); Total Protein 6.8 g/dL (6.6-8.7)
[2019-12-14] MEDS: sodium chloride 0.9% 250 ML 75 ML IV (10:16)
[2019-12-14] MEDS: atropine 1 mg/mL SDV 1 mL 0.4 MG IV (10:16)
[2019-12-14 10:24] LABS: Add Urine Microscopic? NO
[2019-12-14 10:54] LABS: Bilirubin Urine Neg (NEGATIVE); Blood Urine Neg (Negative); Glucose Urine UA Norm (Normal); Ketones Urine Negative (Negative); Leukocyte Esterase Urine Negative (Negative); Nitrate Urine Negative (Negative); Protein Urine Neg (Negative); Urine Appearance Clear (CLEAR); Urine Color Yellow (Yellow); Urobilinogen Urine Norm (Negative)
--- NOTE | 2019-12-18 13:41 | ONC FU_ITS ---
[facility] Patient Note Patient: Oswaldo Khan Unit #: [id number]: 1945 Dictated By: Arabella GalvezDate of Visit: Dec 14, 2019 Onc MED Follow-Up/Prog Note Chief Complaint: Upper rectal carcinoma status post resection and elevated PSA level History of Present Illness: Mr Faye is a 74-year-old gentleman with history of abdominal pain and rectal bleed underwent colonoscopy and was found to have a rectal mass. A biopsy was obtained and it confirmed adenocarcinoma. Mr Khan then underwent low anterior resection on 03/05/2017. The final pathology report showed invasive adenocarcinoma , tumor invades perirectal adipose and 1 out of 18 lymph nodes was positive with extranodal extension and no loss of nuclear expression of MMR protein . Mr Khan also has history of elevated PSA. On 03/12/2017 his PSA was 35.20. As per patient he has seen Dr. Sunil Martinez , urologist, who is following him and CT scan of abdomen pelvis done on 03/19/2017 showed some prominent retroperitoneal lymph nodes somewhat more prominent than in 2013 Mr Khan took combined chemoradiation for 3 days the first week but then accidentally pulled his [place]ur cath and sustained urethral injury. He was evaluated by Dr. Martinez and underwent cystoscopy exam and reinsertion of Mc[place]ur cath, during this time combined chemoradiation therapy was on hold. He resumed 4 weeks after . Patient was advised to take Xeloda daily for 5 days per week during radiation therapy. His Xeloda daily the days of radiation only was held few days due to persistent diarrhea. He concluded his chemoradiation on 11/03/2017. The diarrhea resolved at that time. Mr. Khan has been advised to pursue adjuvant chemotherapy with FOLFOX. had a long discussion regarding the role of adjuvant chemotherapy. he agreed to get Port-A-Cath placement but then at the last minute he changed his mind. Since that time though, he has agreed to pursue the recommended adjuvant chemotherapy. He completed 2 cycles of modified FOLFOX as of 03/04/2018. At his 03/16/2018 appointment, he stated had been having increased abdominal pain and decreased energy. He stated that he did not complete the full 2 days of the fluorouracil pump last one and this he felt like it was making me feel pretty bad . CT scan of the abdomen was done on on 03/19/2018 show stable rectosigmoid anastomosis with no recurrent or adjacent adenopathy. Moderate diffuse constipation. , at the patient's request and and his refusal to continue with 5-FU infusion, changed the chemotherapy plan of care to XELOX on 03/23/2018 and with the plan to give him 6 cycles. Mr. Khan is tolerated it well at this time. 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 He completed 5/6 cycles. .At patient's request Adjuvant chemotherapy with xelox concluded on 07/05/2018 CT scan of abdomen pelvis done on 09/23/2018 showed no acute findings but 1.3 cm nodule in the right lower lobe of the lung. CT PET scan done on 11/06/2018 showed enlarged prostate with diffusely increase uptake Malignant appearing right lung nodules, most likely from colonic carcinoma Malignant mediastinal lymph nodes, most likely from colonic carcinoma No evidence for local prostate metastatic nodes. Normal activity at rectal anastomosis. Since his last visit to oncology clinic patient has seen Dr. Esquivel marine extension agent who did bronchoscopy and patient was diagnosed with sarcoidosis which was treated with some success and follow-up CT scan of chest done on August 30, 2019 showed evidence of interval progression of disease with bilateral pulmonary nodules largest nodule in the right lower lobe posteriorly and right suprahilar with narrowing of right upper lobe bronchus and numerous additional new and progressive pulmonary nodules throughout both lungs right hilar lymphadenopathy, patient underwent bronchoscopy and endobronchial ultrasound-guided transbronchial needle aspiration of station 11 R, showed significant macrophages and histiocytes but no malignancy. but there was a concern about possibility of malignancy so patient underwent second bronchoscopy on October 28, 2019 which showed a fungating mass was seen at the orifice of right upper lobe bronchus with complete occlusion of airways. The right middle lobe and right lower lobe bronchi were examined up to third subsegmental with no abnormality. Biopsy was obtained came back positive for metastatic colorectal adenocarcinoma as immunohistochemistry stain were positive for CK20 and CDX2. Mr Khan was started on systemic chemotherapy with a Avastin/FOLFIRI on November 16, 2019. He has tolerated it well thus far. Mr. Khan is here today for follow-up. He is due for cycle 3 FOLFIRI/Avastin. He states overall he is doing pretty good today. He states that for the first 3-5 days after treatment he felt terrible. He had no energy, was not eating or drinking well and just did not feel like getting out of bed much. That has now resolved and he has felt more human over the last 3-4 days . He does have some occasional treatment induced diarrhea but typically 2 tablets of Imodium controls this well and generally does not take anymore. He states his appetite is down for day or 2 after treatment but then returns to normal. He remains active. 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 He is able to get all of his chores done although he states it takes a little longer than his normal. He states his shortness of breath is the same. He denies any fever or chills. He denies any nausea or vomiting. He denies any neuropathy symptoms. He denies any urinary complaints. He denies any mouth sores, sore throat or difficulty swallowing. He has had no hand or foot skin changes or redness or tenderness thus far. His ECOG is 1. Past Medical History: Chronic obstructive pulmonary disease Gastroesophageal reflux Past Surgical History: Port placement - dr. allen TRUSP / biopsy in 2018 Appendectomy in 2017 Cholecystectomy in 2017 Liver wedge biopsy in 2017 Hernia repair in 2009 Allergies: No Known Allergies. Medications: Ibuprofen 3 Tablet (of 200 mg) Oral daily PRN PriLOSEC Capsule Delayed Release Oral daily Family History: Mr. Khan's mother at age 62: diabetes, and heart attack, and pneumonia. Mr. Khan's father at age 74: Colon Cancer. Mr. Khan has 1 brother who is alive: heart disease. Social History: Mr. Khan is and he is retired. He is a daily smoker who has smoked 1.0 pack/day for 31 years. He has no history of drinking. Review Of Symptoms: Constitutional Denies fevers, chills, night sweats, excessive fatigue or weight loss. Allergic/Immunologic No reactions. Eyes Denies significant visual changes. No diplopia. No amaurosis. ENMT Denies changes in hearing, sore throat, mouth sores, difficulty or changes in swallowing ability, and/or sinus drainage. Endocrine No diabetes, thyroid disease or hormone replacement. Denies hot flashes or night sweats. Hematologic/Lymphatic Denies easy bruising or bleeding. The patient denies any tender or palpable lymph nodes. Respiratory Denies dyspnea on exertion, chest pain, cough or hemoptysis. Denies orthopnea. Cardiovascular Denies anginal chest pain, palpitations or orthopnea. Gastrointestinal Denies current nausea, vomiting, GI bleeding, or constipation. Denies change in bowel habits and/or stool color, no heartburn or early satiety. Had diarrhea and nausea over the weekend but better today. Genitourinary (M) Denies hematuria, dysuria, increased frequency, urgency, hesitancy or incontinence. Musculoskeletal Denies joint pain, swelling or redness. No decreased range of motion. Integumentary Denies chronic rashes, inflammation, ulcerations or skin changes. Neurologic Denies headache, blurred vision, and no areas of focal weakness or numbness. Normal gait. No sensory problems. Psychiatric Denies insomnia, depression, eliecer or mood swings. Vital Signs: Performed on Dec 14, 2019 09:30 Height - 70.00 in Weight - 198.2 lbs (HIGH) BSA - 2.08 sq.m BMI - 28.44 Temperature - 96.8 F (LOW) Pulse - 75 /min Respiration - 18 /min BP - 153/94 mm(hg) (HIGH) O2 Sat - 96 % Pain - 0,1 - No physically strenuous activity, but ambulatory and able to carry out light or sedentary work (e.g. office work, light house work). (ECOG) Physical Examination: Constitutional Alert, oriented, no acute distress. Skin pink, warm and dry. Hard of hearing. Head Normocephalic; atraumatic. Eyes Conjunctivae and sclerae are clear and without icterus. Pupils are reactive and equal. Neck Supple without masses or thyromegaly. No jugular venous distension. Hematologic/Lymphatic No petechiae or purpura. No tender or palpable lymph nodes in the cervical or supraclavicular area. Respiratory Lungs are clear to auscultation without rhonchi or wheezing. Cardiovascular Regular rate and rhythm of heart without murmurs,clicks, gallops or rubs. Abdomen Non-tender, non-distended, no masses, ascites or hepatosplenomegaly. Good bowel sounds noted in all quads. No guarding or rebound tenderness. No pulsatile masses. Back/Spine Non-tender to palpation. Extremities No visible deformities, no cyanosis, clubbing or edema. Pulses 4+ and equal bilaterally. Musculoskeletal No tenderness or swelling, normal range of motion without obvious weakness. Integumentary No rashes or lesions. Neurologic No sensory or motor deficits, normal cerebellar function, normal gait. Psychiatric Alert and oriented times three. Coherent speech. Verbalizes understanding of our discussions today. Laboratory:Test performed on Dec 14, 2019 10:20 Ua Color Yellow Ua Appearance Clear Ua Glucose Norm Ua Bilirubin Neg Ua Ketones Negative Ua Specific [place] 1.010 Ua Blood Neg Ua pH 7.0 Ua Protein Neg Ua Nitrites Negative Ua Leukocyte Esterase Negative Test performed on Dec 14, 2019 08:27 Sodium 136 mmol/L Potassium 4.0 mmol/L Chloride 102 mmol/L CO2 25 mmol/L Anion Gap 13.0 BUN 14 mg/dL Creatinine 0.8 mg/dL Cr Clearance (Est) 104.4200 mL/min Glucose 126 mg/dL Calcium 9.1 mg/dL Protein, Total 6.8 g/dL Albumin 3.9 g/dL Globulin 2.9 g/dL Bilirubin, Total 0.2 mg/dL ALT (SGPT) 22 U/L AST (SGOT) 18 U/L Alkaline Phosphatase 101 IU/L WBC 5.0 10 3/uL RBC 4.45 10 6/uL HGB 11.7 g/dL HCT 35.9 % MCV 80.7 fL MCH 26.3 pg MCHC 32.6 g/dL RDW 14.7 % Platelet Count 299 10 3/cmm MPV 9.5 fL Neutrophils 3.21 10 3/uL Lymphocytes 1.1 10 3/uL Monocytes 0.4 10 3/uL Eosinophils 0.2 10 3/uL Basophils 0.1 10 3/uL Neutrophil % 64.0 % Lymphocyte % 22.6 % Monocyte % 8.6 % Eosinophil % 3.4 % Basophils % 1.2 % NRBC % 0 % Test performed on Nov 08, 2019 15:10 CEA 3.0 ng/mL Impression: Invasive adenocarcinoma of upper rectum status post APR on 03/05/2017 final pathology showed tumor size 5.5 x 5.4 cm low-grade, tumor invades perirectal adipose p T3, lymphovascular invasion present, no perineural invasion seen 1 out of 18 positive lymph nodes N1a , extranodal extension present N1 stage IIIA No loss of nuclear expression of MMR protein Elevated PSA, on 03/12/2017 it was 35.20 with prostate enlargement, being followed by Dr. Martinez. s/p chemoradiation with Xeloda as chemosensitizer. till 11/03/17 discussed with patient regarding the role of adjuvant chemotherapy in stage IIIa rectal cancer, as literature has shown adjuvant chemotherapy improves disease-free survival. Patient has been reluctant to consider chemotherapy because of severe diarrhea during chemoradiation for rectal CA. He was assured that we will adjust/modify his adjuvant chemotherapy to make it tolerable. Patient, now agreed to get port placement and for adjuvant chemotherapy modified FOLFOX every 2 weeks ???12. All the side effect and possible benefits were discussed in detail again and patient expressed understanding. Mr Khan agreed. He was referred back to Dr. Merritt for Port-A-Cath placement and began his first cycle of FOLFOX on 02/09/2018 .Patient developed abdominal pain for which he underwent CT scan of abdomen on 03/19/2018 showed moderate constipation, and stable rectosigmoid anastomosis with no recurrent mass or adjacent adenopathy and bilateral lower lobe pulmonary nodules are stable since 02/03/2017. No evidence of metastatic disease elsewhere. Following day patient had large bowel movement and since then no more abdominal pain. Patient expressed intolerance to 5-FU infusion chemotherapy and also consider it inconvenient so requesting Xeloda pills instead of 5-FU infusion. His treatment plan was changed to XELOX beginning 03/23/2018. He has tolerated it well thus far. He completed 5 of the planned [address] PET scan done on 11/06/2018 showed prostate is enlarged, measuring 6 cm in diameter with diffusely increased FDG activity, most intense in the central prostate. Normal tracer activity at the rectal anastomosis There are 2 pulmonary nodules in the right lower lobe and one in the right upper lobe, the index nodule in the right lower lobe measuring 1.1 x 1.6 cm with SUV of 3.5. Most consistent with metastatic disease, likely from colonic primary. Multiple hypermetabolic mediastinal lymph nodes are present, consistent with metastatic disease, in the inferior right perihilar 1.9 cm, 5.2 SUV. Subcarinal, prevascular, right paratracheal, 1.9 cm, 6.8 SUV. Right hilar territories. Subcentimeter nodes are also noted in the superior right paratracheal region. Too small to characterize. Mr. Khan had established care with Dr. Esquivel in pulmonology. A bronchoscopy was performed and he was found to have sarcoidosis which was treated with some success however a follow-up CT of the chest done on August 29, 2019 showed interval progression of disease with bilateral pulmonary nodules with the largest nodule in the right lower lobe posteriorly. There was activity in the right suprahilar with narrowing of the right upper lobe bronchus and numerous additional new and progressive pulmonary nodules throughout both lungs. There was right hilar lymphadenopathy. He underwent another bronchoscopy and endobronchial ultrasound-guided transbronchial needle aspiration of station 11 R. This showed significant macrophages and histiocytes but no malignancy. However given his history there was concern about the possibility of malignancy therefore he underwent a second bronchoscopy on October 28, 2019. This did show a fungating mass at the orifice of the right upper lobe bronchus with complete occlusion of both airways. The right middle lobe and right lower lobe bronchi were examined up to a third subsegmental with no abnormality. A biopsy was obtained and did report positive for metastatic colorectal adenocarcinoma. Immunohistochemistry stains were positive for CK20 and CDX2. Mr. Khan was advised to pursue pallitave chemotherapy with FOLFOX Avastin. He began his first dose on November 16, 2019. Plan: 1. Proceed with cycle 3 FOLFIRI/Avastin with further dose reduction in 5 FU pump and now with irinotecan due to diarrhea and nausea/marginal performance status posttreatment. 2. Prophylactic use of Imodium and nausea med discussed to start Thursday night before diarrhea and nausea starts. 3. Supportive care with hydration/antiemetics as needed. 4. Today's labs were reviewed in detail and discussed with Mr Khan and a copy was given to him. WBC 5.0, hemoglobin 11.7, platelets 299,000 ANC is 3200 potassium 4.0 random glucose 126 creatinine 0.8 LFTs are normal. His UA today was negative for protein. 5. Followup in 2 weeks with CBC, CMP and folllowup for cycle 4 FOLFIRI with Avastin. 6. Mr. Khan was instructed to contact us in interim if questions or problems arise. I did encourage him to call us if he feels bad after this cycle so that we can bring him up for hydration with supportive care such as antiemetics/antidiarrheals if needed. We talked at length about trying the prophylactic use of the Imodium and Compazine and he is willing to do this. He promises to let us know if he has any further problems. Signed By: Arabella Galvez-, AOCNP Paula Singh MD <<Signature on File>>
[2019-12-28] MEDS: alteplase 1 mg/mL SDV 2 mL 2 MG IV (08:27)
[2019-12-28 08:37] LABS: Basophils # 0.1 10^3/uL (0.0-0.1); Basophils % 1.4 %; Eosinophils # 0.2 10^3/uL (0.0-0.8); Eosinophils % 3.6 %; Hematocrit 38.3 % (42.0-52.0); Hemoglobin 12.3 g/dL (11.7-16.6); Lymphocytes % 18.2 %; Mean Corpuscular HGB Conc 32.1 g/dL (30.0-36.0); Mean Corpuscular Hemoglobin 26.3 pg (28.0-34.0); Mean Corpuscular Volume 81.8 fL (80-94); Mean Platelet Volume 9.7 fL (7.4-10.4); Monocytes # 0.4 10^3/uL (0.2-0.9); Monocytes % 7.2 %; Neutrophils # 3.88 10^3/uL (1.8-7.7); Neutrophils % 69.4 %; Nucleated Red Blood Cells % 0 %; Platelet Count 244 10^3/cmm (130-400); Red Blood Count 4.68 10^6/uL (4.1-5.3); Red Cell Distribution Width 15.7 % (12.1-15.1); White Blood Count 5.6 10^3/uL (4.0-10.0)
[2019-12-28 08:54] LABS: Alanine Aminotransferase 21 U/L (0-41); Albumin Level 3.9 g/dL (3.5-5.2); Alkaline Phosphatase 96 IU/L (40-130); Anion Gap 13.8 (5-19); Aspartate Amino Transferase 15 U/L (0-40); Blood Urea Nitrogen 15 mg/dL (8-23); Calcium 9.7 mg/dL (8.5-10.5); Carbon Dioxide 22 mmol/L (22-29); Chloride 106 mmol/L (98-107); Globulin 2.5 g/dL (1.3-4.6); Glucose 136 mg/dL (65-115); Osmolality Calculated 289 mOsm/kg (285-295); Potassium 3.8 mmol/L (3.5-5.1); Sodium 138 mmol/L (136-145); Total Bilirubin 0.3 mg/dL (0.15-1.2); Total Protein 6.4 g/dL (6.6-8.7)
[2019-12-28] MEDS: atropine 1 mg/mL SDV 1 mL 0.4 MG IV (11:33)
[2019-12-28] MEDS: sodium chloride 0.9% 250 ML 75 ML IV (11:43)
[2019-12-28] MEDS: OLANZapine 10 mg TABLET PO (14:13)
--- NOTE | 2019-12-30 12:44 | ONC FU_ITS ---
follow up note Patient: Oswaldo Khan Unit #: [id number]: 1945 Dicatated By: Paula Singh M.D.Date of Visit:Dec 28, 2019 Onc Med Follow-up/Prog Note History of Present Illness: Mr Faye is a 74-year-old gentleman with history of abdominal pain and rectal bleed underwent colonoscopy and was found to have a rectal mass. A biopsy was obtained and it confirmed adenocarcinoma. Mr Khan then underwent low anterior resection on 03/05/2017. The final pathology report showed invasive adenocarcinoma , tumor invades perirectal adipose and 1 out of 18 lymph nodes was positive with extranodal extension and no loss of nuclear expression of MMR protein . Mr Khan also has history of elevated PSA. On 03/12/2017 his PSA was 35.20. As per patient he has seen Dr. Sunil Martinez , urologist, who is following him and CT scan of abdomen pelvis done on 03/19/2017 showed some prominent retroperitoneal lymph nodes somewhat more prominent than in 2013 Mr Khan took combined chemoradiation for 3 days the first week but then accidentally pulled his [place] cath and sustained urethral injury. He was evaluated by Dr. Martinez and underwent cystoscopy exam and reinsertion of [place] cath, during this time combined chemoradiation therapy was on hold. He resumed 4 weeks after . Patient was advised to take Xeloda daily for 5 days per week during radiation therapy. His Xeloda daily the days of radiation only was held few days due to persistent diarrhea. He concluded his chemoradiation on 11/03/2017. The diarrhea resolved at that time. Mr. Khan has been advised to pursue adjuvant chemotherapy with FOLFOX. had a long discussion regarding the role of adjuvant chemotherapy. he agreed to get Port-A-Cath placement but then at the last minute he changed his mind. Since that time though, he has agreed to pursue the recommended adjuvant chemotherapy. He completed 2 cycles of modified FOLFOX as of 03/04/2018. At his 03/16/2018 appointment, he stated had been having increased abdominal pain and decreased energy. He stated that he did not complete the full 2 days of the fluorouracil pump last one and this he felt like it was making me feel pretty bad . CT scan of the abdomen was done on on 03/19/2018 show stable rectosigmoid anastomosis with no recurrent or adjacent adenopathy. Moderate diffuse constipation. , at the patient's request and and his refusal to continue with 5-FU infusion, changed the chemotherapy plan of care to XELOX on 03/23/2018 and with the plan to give him 6 cycles. Mr. Khan is tolerated it well at this time. 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 He completed 5/6 cycles. .At patient's request Adjuvant chemotherapy with xelox concluded on 07/05/2018 CT scan of abdomen pelvis done on 09/23/2018 showed no acute findings but 1.3 cm nodule in the right lower lobe of the lung. CT PET scan done on 11/06/2018 showed enlarged prostate with diffusely increase uptake Malignant appearing right lung nodules, most likely from colonic carcinoma Malignant mediastinal lymph nodes, most likely from colonic carcinoma No evidence for local prostate metastatic nodes. Normal activity at rectal anastomosis. Since his last visit to oncology clinic patient has seen Dr. Esquivel room worker who did bronchoscopy and patient was diagnosed with sarcoidosis which was treated with some success and follow-up CT scan of chest done on August 30, 2019 showed evidence of interval progression of disease with bilateral pulmonary nodules largest nodule in the right lower lobe posteriorly and right suprahilar with narrowing of right upper lobe bronchus and numerous additional new and progressive pulmonary nodules throughout both lungs right hilar lymphadenopathy, patient underwent bronchoscopy and endobronchial ultrasound-guided transbronchial needle aspiration of station 11 R, showed significant macrophages and histiocytes but no malignancy. but there was a concern about possibility of malignancy so patient underwent second bronchoscopy on October 28, 2019 which showed a fungating mass was seen at the orifice of right upper lobe bronchus with complete occlusion of airways. The right middle lobe and right lower lobe bronchi were examined up to third subsegmental with no abnormality. Biopsy was obtained came back positive for metastatic colorectal adenocarcinoma as immunohistochemistry stain were positive for CK20 and CDX2. Mr Khan was started on systemic chemotherapy with a Avastin/FOLFIRI on November 16, 2019. He has tolerated it well thus far. [facility] [place] sequencing was ordered and report came back on December 19, 2019 showed HER-2/peggy negative and says it was not possible to calculate tumor mutational burden and MSI/MMR for the sample because the sequencing data did not reach the minimum depth of coverage required to provide a result on these biomarkers. Came for follow-up, denies any specific complaints except couple of bad days after each chemotherapy otherwise no fever chills no nausea or vomiting no diarrhea constipation no abdominal pain, no mouth sores, no skin rash, no jaundice, tolerating FOLFIRI/Avastin well Medications: Ibuprofen 3 Tablet (of 200 mg) Oral daily PRN, PriLOSEC Capsule Delayed Release Oral daily Allergies: No Known Allergies. Review of Systems: Constitutional - His energy level is fair. Appetite is good and weight is stable. No fever, chills, hot flashes, or night sweats, ENMT - He has sinus congestion/drainage. No mouth sores. No sore throat or difficulty swallowing, Hematologic/Lymphatic - No abnormal bruising or bleeding, Respiratory - He has shortness of breath with activity. He still has cough. No pleuritic pain or hemoptysis, Cardiovascular - No angina pain. No palpitations, Gastrointestinal - No nausea or vomiting. No heartburn or acid reflux. No diarrhea and constipation. No blood in the stool or black stools, Genitourinary (M) - No dysuria or hematuria. He has urinary frequency. No urgency or incontinence, Musculoskeletal - No joint or bone pain, Integumentary - No skin ulcers or open wounds. Denies any rash or skin lesions, Neurologic - No headache or dizziness. No numbness/paresthesias or other focal neurologic symptoms, Psychiatric - No anxiety or depression. No insomnia. Vital Signs: Performed on Dec 28, 2019 10:35 Height - 70.00 in Weight - 194.8 lbs (LOW) BSA - 2.06 sq.m BMI - 27.95 Temperature - 97.6 F (LOW) Pulse - 71 /min Respiration - 20 /min BP - 165/93 mm(hg) (HIGH) O2 Sat - 97 % Pain - 0 Performance Status: 0 - Fully active, able to carry on all predisease activities without restrictions. (ECOG) Physical Examination: ENMT - No mouth sores, no thrush, no jaundice, Respiratory - Lungs are clear to auscultation , Cardiovascular - Regular rate and rhythm of heart, Abdomen - Soft, bowel sounds present, Extremities - No visible edema. Lab/Imaging: Test performed on Dec 14, 2019 10:20 Ua Color Yellow Ua Appearance Clear Ua Glucose Norm Ua Bilirubin Neg Ua Ketones Negative Ua Specific [place] 1.010 Ua Blood Neg Ua pH 7.0 Ua Protein Neg Ua Nitrites Negative Ua Leukocyte Esterase Negative Test performed on Dec 14, 2019 08:27 Sodium 136 mmol/L Potassium 4.0 mmol/L Chloride 102 mmol/L CO2 25 mmol/L Anion Gap 13.0 BUN 14 mg/dL Creatinine 0.8 mg/dL Cr Clearance (Est) 104.4200 mL/min Glucose 126 mg/dL Calcium 9.1 mg/dL Protein, Total 6.8 g/dL Albumin 3.9 g/dL Globulin 2.9 g/dL Bilirubin, Total 0.2 mg/dL ALT (SGPT) 22 U/L AST (SGOT) 18 U/L Alkaline Phosphatase 101 IU/L Test performed on Nov 08, 2019 15:10 WBC 9.5 10 3/uL RBC 5.07 10 6/uL HGB 13.3 g/dL HCT 41.0 % MCV 80.9 fL MCH 26.2 pg MCHC 32.4 g/dL RDW 14.5 % Platelet Count 325 10 3/cmm MPV 10.1 fL Neutrophils 6.84 10 3/uL Lymphocytes 1.6 10 3/uL Monocytes 0.7 10 3/uL Eosinophils 0.2 10 3/uL Basophils 0.1 10 3/uL Neutrophil % 71.7 % Lymphocyte % 16.7 % Monocyte % 7.7 % Eosinophil % 2.1 % Basophils % 1.3 % NRBC % 0 % CEA 3.0 ng/mL Impression: Invasive adenocarcinoma of upper rectum status post APR on 03/05/2017 final pathology showed tumor size 5.5 x 5.4 cm low-grade, tumor invades perirectal adipose p T3, lymphovascular invasion present, no perineural invasion seen 1 out of 18 positive lymph nodes N1a , extranodal extension present N1 stage IIIA No loss of nuclear expression of MMR protein Elevated PSA, on 03/12/2017 it was 35.20 with prostate enlargement, being followed by Dr. Martinez. s/p chemoradiation with Xeloda as chemosensitizer. till 11/03/17 discussed with patient regarding the role of adjuvant chemotherapy in stage IIIa rectal cancer, as literature has shown adjuvant chemotherapy improves disease-free survival. Patient has been reluctant to consider chemotherapy because of severe diarrhea during chemoradiation for rectal CA. He was assured that we will adjust/modify his adjuvant chemotherapy to make it tolerable. Patient, now agreed to get port placement and for adjuvant chemotherapy modified FOLFOX every 2 weeks ???12. All the side effect and possible benefits were discussed in detail again and patient expressed understanding. Mr Khan agreed. He was referred back to Dr. Merritt for Port-A-Cath placement and began his first cycle of FOLFOX on 02/09/2018 .Patient developed abdominal pain for which he underwent CT scan of abdomen on 03/19/2018 showed moderate constipation, and stable rectosigmoid anastomosis with no recurrent mass or adjacent adenopathy and bilateral lower lobe pulmonary nodules are stable since 02/03/2017. No evidence of metastatic disease elsewhere. Following day patient had large bowel movement and since then no more abdominal pain. Patient expressed intolerance to 5-FU infusion chemotherapy and also consider it inconvenient so requesting Xeloda pills instead of 5-FU infusion. His treatment plan was changed to XELOX beginning 03/23/2018. He has tolerated it well thus far. He completed 5 of the planned [address] PET scan done on 11/06/2018 showed prostate is enlarged, measuring 6 cm in diameter with diffusely increased FDG activity, most intense in the central prostate. Normal tracer activity at the rectal anastomosis There are 2 pulmonary nodules in the right lower lobe and one in the right upper lobe, the index nodule in the right lower lobe measuring 1.1 x 1.6 cm with SUV of 3.5. Most consistent with metastatic disease, likely from colonic primary. Multiple hypermetabolic mediastinal lymph nodes are present, consistent with metastatic disease, in the inferior right perihilar 1.9 cm, 5.2 SUV. Subcarinal, prevascular, right paratracheal, 1.9 cm, 6.8 SUV. Right hilar territories. Subcentimeter nodes are also noted in the superior right paratracheal region. Too small to characterize. Mr. Khan had established care with Dr. Esquivel in pulmonology. A bronchoscopy was performed and he was found to have sarcoidosis which was treated with some success however a follow-up CT of the chest done on August 29, 2019 showed interval progression of disease with bilateral pulmonary nodules with the largest nodule in the right lower lobe posteriorly. There was activity in the right suprahilar with narrowing of the right upper lobe bronchus and numerous additional new and progressive pulmonary nodules throughout both lungs. There was right hilar lymphadenopathy. He underwent another bronchoscopy and endobronchial ultrasound-guided transbronchial needle aspiration of station 11 R. This showed significant macrophages and histiocytes but no malignancy. However given his history there was concern about the possibility of malignancy therefore he underwent a second bronchoscopy on October 28, 2019. This did show a fungating mass at the orifice of the right upper lobe bronchus with complete occlusion of both airways. The right middle lobe and right lower lobe bronchi were examined up to a third subsegmental with no abnormality. A biopsy was obtained and did report positive for metastatic colorectal adenocarcinoma. Immunohistochemistry stains were positive for CK20 and CDX2. Mr. Khan was advised to pursue pallitave chemotherapy with FOLFOX Avastin. He began his first dose on November 16, 2019. Plan: Discussed with patient regarding his labs white blood count 5.6 hemoglobin 12.3 hematocrit 38.3 platelets 244,000 CMP within normal limits Clinically, patient doing well with no new signs symptom and tolerating systemic therapy with FOLFIRI/Avastin well. We will proceed with next cycle #4 today and then he will return to clinic in 2 weeks with CBC CMP. Signed By: Paula Singh M.D. <<Signature on File>>
== END 2020-01-04 23:59 | disposition home or self-care (01) ==
LOC: ONCMED 05:43
PROVIDERS: Nurse Practitioner; PCP Nurse Practitioner; Visit Provider Internal Medicine Hematology & Oncology
DX: Z51.11 Encounter for antineoplastic chemotherapy (principal); C19 Malignant neoplasm of rectosigmoid junction; C78.01 Secondary malignant neoplasm of right lung; C77.1 Secondary and unspecified malignant neoplasm of intrathoracic lymph nodes; R97.20 Elevated prostate specific antigen [PSA]; Z79.899 Other long term (current) drug therapy; Z92.21 Personal history of antineoplastic chemotherapy; Z92.3 Personal history of irradiation
CPT/HCPCS: 36593; 80053; 81003; 85025; 96367; 96368; 96375; 96413; 96415; 96416; 96417; 96523; 99214; J0461; J0640; J1100; J1453; J2469; J2997; J7050; J9035; J9190; J9206

== ENCOUNTER 2020-02-01 05:27 | Outpatient (RCR) | payer MEDICARE, MEDICAID, SELFPAY ==
[2020-01-18] MEDS: alteplase 1 mg/mL SDV 2 mL 2 MG IV ×2 (08:44→10:17)
[2020-01-18 08:53] LABS: Basophils # 0.1 10^3/uL (0.0-0.1); Basophils % 1.3 %; Eosinophils # 0.2 10^3/uL (0.0-0.8); Eosinophils % 3.6 %; Hematocrit 39.1 % (42.0-52.0); Lymphocytes % 18.9 %; Mean Corpuscular HGB Conc 33.2 g/dL (30.0-36.0); Mean Corpuscular Hemoglobin 26.9 pg (28.0-34.0); Mean Corpuscular Volume 80.8 fL (80-94); Mean Platelet Volume 9.7 fL (7.4-10.4); Monocytes # 0.5 10^3/uL (0.2-0.9); Monocytes % 9.2 %; Neutrophils # 3.58 10^3/uL (1.8-7.7); Neutrophils % 66.8 %; Nucleated Red Blood Cells % 0 %; Platelet Count 259 10^3/cmm (130-400); Red Blood Count 4.84 10^6/uL (4.1-5.3); Red Cell Distribution Width 16.3 % (12.1-15.1); White Blood Count 5.4 10^3/uL (4.0-10.0)
[2020-01-18 09:07] LABS: Alanine Aminotransferase 16 U/L (0-41); Albumin Level 4.1 g/dL (3.5-5.2); Alkaline Phosphatase 106 IU/L (40-130); Anion Gap 14.8 (5-19); Aspartate Amino Transferase 18 U/L (0-40); Blood Urea Nitrogen 12 mg/dL (8-23); Carbon Dioxide 24 mmol/L (22-29); Chloride 106 mmol/L (98-107); Globulin 2.5 g/dL (1.3-4.6); Glucose 163 mg/dL (65-115); Osmolality Calculated 295 mOsm/kg (285-295); Potassium 3.8 mmol/L (3.5-5.1); Sodium 141 mmol/L (136-145); Total Bilirubin 0.3 mg/dL (0.15-1.2); Total Protein 6.6 g/dL (6.6-8.7)
--- NOTE | 2020-01-18 09:57 | ONC FU_ITS ---
follow up note Patient: Oswaldo Khan Unit #: [id number]: 1945 Dicatated By: Paula Singh M.D.Date of Visit:Jan 18, 2020 Onc Med Follow-up/Prog Note History of Present Illness: Mr Faye is a 74-year-old gentleman with history of abdominal pain and rectal bleed underwent colonoscopy and was found to have a rectal mass. A biopsy was obtained and it confirmed adenocarcinoma. Mr Khan then underwent low anterior resection on 03/05/2017. The final pathology report showed invasive adenocarcinoma , tumor invades perirectal adipose and 1 out of 18 lymph nodes was positive with extranodal extension and no loss of nuclear expression of MMR protein . Mr Khan also has history of elevated PSA. On 03/12/2017 his PSA was 35.20. As per patient he has seen Dr. Sunil Martinez , urologist, who is following him and CT scan of abdomen pelvis done on 03/19/2017 showed some prominent retroperitoneal lymph nodes somewhat more prominent than in 2013 Mr Khan took combined chemoradiation for 3 days the first week but then accidentally pulled his [place] cath and sustained urethral injury. He was evaluated by Dr. Martinez and underwent cystoscopy exam and reinsertion of [place] cath, during this time combined chemoradiation therapy was on hold. He resumed 4 weeks after . Patient was advised to take Xeloda daily for 5 days per week during radiation therapy. His Xeloda daily the days of radiation only was held few days due to persistent diarrhea. He concluded his chemoradiation on 11/03/2017. The diarrhea resolved at that time. Mr. Khan has been advised to pursue adjuvant chemotherapy with FOLFOX. had a long discussion regarding the role of adjuvant chemotherapy. he agreed to get Port-A-Cath placement but then at the last minute he changed his mind. Since that time though, he has agreed to pursue the recommended adjuvant chemotherapy. He completed 2 cycles of modified FOLFOX as of 03/04/2018. At his 03/16/2018 appointment, he stated had been having increased abdominal pain and decreased energy. He stated that he did not complete the full 2 days of the fluorouracil pump last one and this he felt like it was making me feel pretty bad . CT scan of the abdomen was done on on 03/19/2018 show stable rectosigmoid anastomosis with no recurrent or adjacent adenopathy. Moderate diffuse constipation. , at the patient's request and and his refusal to continue with 5-FU infusion, changed the chemotherapy plan of care to XELOX on 03/23/2018 and with the plan to give him 6 cycles. Mr. Khan is tolerated it well at this time. 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 He completed 5/6 cycles. .At patient's request Adjuvant chemotherapy with xelox concluded on 07/05/2018 CT scan of abdomen pelvis done on 09/23/2018 showed no acute findings but 1.3 cm nodule in the right lower lobe of the lung. CT PET scan done on 11/06/2018 showed enlarged prostate with diffusely increase uptake Malignant appearing right lung nodules, most likely from colonic carcinoma Malignant mediastinal lymph nodes, most likely from colonic carcinoma No evidence for local prostate metastatic nodes. Normal activity at rectal anastomosis. Since his last visit to oncology clinic patient has seen Dr. Esquivel angular js developer who did bronchoscopy and patient was diagnosed with sarcoidosis which was treated with some success and follow-up CT scan of chest done on August 30, 2019 showed evidence of interval progression of disease with bilateral pulmonary nodules largest nodule in the right lower lobe posteriorly and right suprahilar with narrowing of right upper lobe bronchus and numerous additional new and progressive pulmonary nodules throughout both lungs right hilar lymphadenopathy, patient underwent bronchoscopy and endobronchial ultrasound-guided transbronchial needle aspiration of station 11 R, showed significant macrophages and histiocytes but no malignancy. but there was a concern about possibility of malignancy so patient underwent second bronchoscopy on October 28, 2019 which showed a fungating mass was seen at the orifice of right upper lobe bronchus with complete occlusion of airways. The right middle lobe and right lower lobe bronchi were examined up to third subsegmental with no abnormality. Biopsy was obtained came back positive for metastatic colorectal adenocarcinoma as immunohistochemistry stain were positive for CK20 and CDX2. Mr Khan was started on systemic chemotherapy with a Avastin/FOLFIRI on November 16, 2019. He has tolerated it well thus far. [facility] [place] sequencing was ordered and report came back on December 19, 2019 showed HER-2/peggy negative and says it was not possible to calculate tumor mutational burden and MSI/MMR for the sample because the sequencing data did not reach the minimum depth of coverage required to provide a result on these biomarkers. Came for follow-up, complaining of nausea but no vomiting, abdominal cramps, constipation, alternate with diarrhea, generalized weakness and fatigue, as per patient all the symptoms he was just about day after chemo and last for 72 hours. But with dose reduction he felt the symptoms were less bothersome. otherwise tolerating FOLFIRI/Avastin well Medications: Ibuprofen 3 Tablet (of 200 mg) Oral daily PRN, PriLOSEC Capsule Delayed Release Oral daily Allergies: No Known Allergies. Review of Systems: Review of Systems is not available for this patient. Vital Signs: Performed on Jan 18, 2020 09:13 Height - 70.00 in Weight - 198.3 lbs (HIGH) BSA - 2.08 sq.m BMI - 28.45 Temperature - 97.1 F (LOW) Pulse - 81 /min Respiration - 18 /min BP - 170/93 mm(hg) (HIGH) O2 Sat - 96 % Pain - 0 Performance Status: 0 - Fully active, able to carry on all predisease activities without restrictions. (ECOG) Physical Examination: ENMT - No mouth sores, no thrush, no jaundice, Respiratory - Lungs are clear to auscultation, Cardiovascular - Regular rate and rhythm of heart, Abdomen - Soft, bowel sounds present, Extremities - No visible edema. Lab/Imaging: Test performed on Dec 14, 2019 10:20 Ua Color Yellow Ua Appearance Clear Ua Glucose Norm Ua Bilirubin Neg Ua Ketones Negative Ua Specific [place] 1.010 Ua Blood Neg Ua pH 7.0 Ua Protein Neg Ua Nitrites Negative Ua Leukocyte Esterase Negative Test performed on Dec 14, 2019 08:27 Sodium 136 mmol/L Potassium 4.0 mmol/L Chloride 102 mmol/L CO2 25 mmol/L Anion Gap 13.0 BUN 14 mg/dL Creatinine 0.8 mg/dL Cr Clearance (Est) 104.4200 mL/min Glucose 126 mg/dL Calcium 9.1 mg/dL Protein, Total 6.8 g/dL Albumin 3.9 g/dL Globulin 2.9 g/dL Bilirubin, Total 0.2 mg/dL ALT (SGPT) 22 U/L AST (SGOT) 18 U/L Alkaline Phosphatase 101 IU/L Test performed on Nov 08, 2019 15:10 WBC 9.5 10 3/uL RBC 5.07 10 6/uL HGB 13.3 g/dL HCT 41.0 % MCV 80.9 fL MCH 26.2 pg MCHC 32.4 g/dL RDW 14.5 % Platelet Count 325 10 3/cmm MPV 10.1 fL Neutrophils 6.84 10 3/uL Lymphocytes 1.6 10 3/uL Monocytes 0.7 10 3/uL Eosinophils 0.2 10 3/uL Basophils 0.1 10 3/uL Neutrophil % 71.7 % Lymphocyte % 16.7 % Monocyte % 7.7 % Eosinophil % 2.1 % Basophils % 1.3 % NRBC % 0 % CEA 3.0 ng/mL Impression: Invasive adenocarcinoma of upper rectum status post APR on 03/05/2017 final pathology showed tumor size 5.5 x 5.4 cm low-grade, tumor invades perirectal adipose p T3, lymphovascular invasion present, no perineural invasion seen 1 out of 18 positive lymph nodes N1a , extranodal extension present N1 stage IIIA No loss of nuclear expression of MMR protein Elevated PSA, on 03/12/2017 it was 35.20 with prostate enlargement, being followed by Dr. Martinez. s/p chemoradiation with Xeloda as chemosensitizer. till 11/03/17 discussed with patient regarding the role of adjuvant chemotherapy in stage IIIa rectal cancer, as literature has shown adjuvant chemotherapy improves disease-free survival. Patient has been reluctant to consider chemotherapy because of severe diarrhea during chemoradiation for rectal CA. He was assured that we will adjust/modify his adjuvant chemotherapy to make it tolerable. Patient, now agreed to get port placement and for adjuvant chemotherapy modified FOLFOX every 2 weeks ???12. All the side effect and possible benefits were discussed in detail again and patient expressed understanding. Mr Khan agreed. He was referred back to Dr. Merritt for Port-A-Cath placement and began his first cycle of FOLFOX on 02/09/2018 .Patient developed abdominal pain for which he underwent CT scan of abdomen on 03/19/2018 showed moderate constipation, and stable rectosigmoid anastomosis with no recurrent mass or adjacent adenopathy and bilateral lower lobe pulmonary nodules are stable since 02/03/2017. No evidence of metastatic disease elsewhere. Following day patient had large bowel movement and since then no more abdominal pain. Patient expressed intolerance to 5-FU infusion chemotherapy and also consider it inconvenient so requesting Xeloda pills instead of 5-FU infusion. His treatment plan was changed to XELOX beginning 03/23/2018. He has tolerated it well thus far. He completed 5 of the planned [address] PET scan done on 11/06/2018 showed prostate is enlarged, measuring 6 cm in diameter with diffusely increased FDG activity, most intense in the central prostate. Normal tracer activity at the rectal anastomosis There are 2 pulmonary nodules in the right lower lobe and one in the right upper lobe, the index nodule in the right lower lobe measuring 1.1 x 1.6 cm with SUV of 3.5. Most consistent with metastatic disease, likely from colonic primary. Multiple hypermetabolic mediastinal lymph nodes are present, consistent with metastatic disease, in the inferior right perihilar 1.9 cm, 5.2 SUV. Subcarinal, prevascular, right paratracheal, 1.9 cm, 6.8 SUV. Right hilar territories. Subcentimeter nodes are also noted in the superior right paratracheal region. Too small to characterize. Mr. Khan had established care with Dr. Esquivel in pulmonology. A bronchoscopy was performed and he was found to have sarcoidosis which was treated with some success however a follow-up CT of the chest done on August 29, 2019 showed interval progression of disease with bilateral pulmonary nodules with the largest nodule in the right lower lobe posteriorly. There was activity in the right suprahilar with narrowing of the right upper lobe bronchus and numerous additional new and progressive pulmonary nodules throughout both lungs. There was right hilar lymphadenopathy. He underwent another bronchoscopy and endobronchial ultrasound-guided transbronchial needle aspiration of station 11 R. This showed significant macrophages and histiocytes but no malignancy. However given his history there was concern about the possibility of malignancy therefore he underwent a second bronchoscopy on October 28, 2019. This did show a fungating mass at the orifice of the right upper lobe bronchus with complete occlusion of both airways. The right middle lobe and right lower lobe bronchi were examined up to a third subsegmental with no abnormality. A biopsy was obtained and did report positive for metastatic colorectal adenocarcinoma. Immunohistochemistry stains were positive for CK20 and CDX2. Mr. Khan was advised to pursue pallitave chemotherapy with FOLFOX Avastin. He began his first dose on November 16, 2019. Plan: Discussed with patient regarding his labs white blood count 5.4 hemoglobin 13 hematocrit 39.1 platelets 259,000 CMP within normal limits Clinically, patient doing reasonably well, tolerating systemic therapy with Avastin/FOLFIRI, well but with expected side effect, e.g. day after chemotherapy usually with nausea, abdominal cramps, constipation alternating with diarrhea usually last for about 72 hours. At this point will reduce his chemotherapy dose further by 10%, both Camptosar as well as 5-FU, hopefully that will improve his symptoms, will proceed with cycle #5 with a Avastin/FOLFIRI, further modified dose today and then return to clinic in 2 weeks with CBC CMP, blood count looks reasonable will consider cycle #6, followed by CT PET scan to assess disease response. Patient was advised to maintain good hydration and will continue with supportive care. Signed By: Paula Singh M.D. <<Signature on File>>
[2020-01-18] MEDS: sodium chloride 0.9% 250 ML 75 ML IV (10:31)
[2020-01-18] MEDS: atropine 1 mg/mL SDV 1 mL 0.4 MG IV (10:56)
== END 2020-02-04 23:59 | disposition home or self-care (01) ==
LOC: ONCMED 05:27
PROVIDERS: PCP Nurse Practitioner; Visit Provider Internal Medicine Hematology & Oncology
DX: Z51.11 Encounter for antineoplastic chemotherapy (principal); C19 Malignant neoplasm of rectosigmoid junction; C77.2 Secondary and unspecified malignant neoplasm of intra-abdominal lymph nodes; C78.01 Secondary malignant neoplasm of right lung; N40.0 Benign prostatic hyperplasia without lower urinary tract symptoms; Z92.3 Personal history of irradiation; Z79.899 Other long term (current) drug therapy
CPT/HCPCS: 36593; 80053; 85025; 96367; 96368; 96375; 96376; 96413; 96415; 96416; 96417; 96523; 99214; J0461; J0640; J1100; J1453; J2469; J2997; J7050; J9035; J9190; J9206

== ENCOUNTER 2020-02-27 05:28 | Outpatient (RCR) | payer MEDICARE, MEDICAID, SELFPAY ==
[2020-02-07 10:10] LABS: Basophils # 0.1 10^3/uL (0.0-0.1); Basophils % 1.3 %; Eosinophils # 0.2 10^3/uL (0.0-0.8); Eosinophils % 4.3 %; Hematocrit 40.2 % (42.0-52.0); Hemoglobin 13.1 g/dL (11.7-16.6); Lymphocytes # 1.2 10^3/uL (0.8-4.8); Lymphocytes % 23.4 %; Mean Corpuscular HGB Conc 32.6 g/dL (30.0-36.0); Mean Corpuscular Hemoglobin 25.9 pg (28.0-34.0); Mean Corpuscular Volume 79.4 fL (80-94); Mean Platelet Volume 9.4 fL (7.4-10.4); Monocytes # 0.4 10^3/uL (0.2-0.9); Monocytes % 7.7 %; Neutrophils # 3.34 10^3/uL (1.8-7.7); Neutrophils % 62.9 %; Nucleated Red Blood Cells % 0 %; Platelet Count 219 10^3/cmm (130-400); Red Blood Count 5.06 10^6/uL (4.1-5.3); Red Cell Distribution Width 16.2 % (12.1-15.1); White Blood Count 5.3 10^3/uL (4.0-10.0)
[2020-02-07 10:26] LABS: Alanine Aminotransferase 18 U/L (0-41); Alkaline Phosphatase 96 IU/L (40-130); Anion Gap 13.3 (5-19); Aspartate Amino Transferase 17 U/L (0-40); Blood Urea Nitrogen 12 mg/dL (8-23); Calcium 9.3 mg/dL (8.5-10.5); Carbon Dioxide 25 mmol/L (22-29); Chloride 105 mmol/L (98-107); Globulin 2.7 g/dL (1.3-4.6); Glucose 154 mg/dL (65-115); Osmolality Calculated 293 mOsm/kg (285-295); Potassium 3.3 mmol/L (3.5-5.1); Sodium 140 mmol/L (136-145); Total Bilirubin 0.3 mg/dL (0.15-1.2); Total Protein 6.7 g/dL (6.6-8.7)
--- NOTE | 2020-02-08 08:52 | ONC FU_ITS ---
follow up note Patient: Oswaldo Khan Unit #: [id number]: 1945 Dicatated By: Paula Singh M.D.Date of Visit:Feb 08, 2020 Onc Med Follow-up/Prog Note History of Present Illness: Mr Faye is a 74-year-old gentleman with history of abdominal pain and rectal bleed underwent colonoscopy and was found to have a rectal mass. A biopsy was obtained and it confirmed adenocarcinoma. Mr Khan then underwent low anterior resection on 03/05/2017. The final pathology report showed invasive adenocarcinoma , tumor invades perirectal adipose and 1 out of 18 lymph nodes was positive with extranodal extension and no loss of nuclear expression of MMR protein . Mr Khan also has history of elevated PSA. On 03/12/2017 his PSA was 35.20. As per patient he has seen Dr. Sunil Martinez , urologist, who is following him and CT scan of abdomen pelvis done on 03/19/2017 showed some prominent retroperitoneal lymph nodes somewhat more prominent than in 2013 Mr Khan took combined chemoradiation for 3 days the first week but then accidentally pulled his [place] cath and sustained urethral injury. He was evaluated by Dr. Martinez and underwent cystoscopy exam and reinsertion of [place] cath, during this time combined chemoradiation therapy was on hold. He resumed 4 weeks after . Patient was advised to take Xeloda daily for 5 days per week during radiation therapy. His Xeloda daily the days of radiation only was held few days due to persistent diarrhea. He concluded his chemoradiation on 11/03/2017. The diarrhea resolved at that time. Mr. Khan has been advised to pursue adjuvant chemotherapy with FOLFOX. had a long discussion regarding the role of adjuvant chemotherapy. he agreed to get Port-A-Cath placement but then at the last minute he changed his mind. Since that time though, he has agreed to pursue the recommended adjuvant chemotherapy. He completed 2 cycles of modified FOLFOX as of 03/04/2018. At his 03/16/2018 appointment, he stated had been having increased abdominal pain and decreased energy. He stated that he did not complete the full 2 days of the fluorouracil pump last one and this he felt like it was making me feel pretty bad . CT scan of the abdomen was done on on 03/19/2018 show stable rectosigmoid anastomosis with no recurrent or adjacent adenopathy. Moderate diffuse constipation. , at the patient's request and and his refusal to continue with 5-FU infusion, changed the chemotherapy plan of care to XELOX on 03/23/2018 and with the plan to give him 6 cycles. Mr. Khan is tolerated it well at this time. 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 He completed 5/6 cycles. .At patient's request Adjuvant chemotherapy with xelox concluded on 07/05/2018 CT scan of abdomen pelvis done on 09/23/2018 showed no acute findings but 1.3 cm nodule in the right lower lobe of the lung. CT PET scan done on 11/06/2018 showed enlarged prostate with diffusely increase uptake Malignant appearing right lung nodules, most likely from colonic carcinoma Malignant mediastinal lymph nodes, most likely from colonic carcinoma No evidence for local prostate metastatic nodes. Normal activity at rectal anastomosis. in the recent past seen Dr. Esquivel satellite tv installer who did bronchoscopy and patient was diagnosed with sarcoidosis which was treated with some success and follow-up CT scan of chest done on August 30, 2019 showed evidence of interval progression of disease with bilateral pulmonary nodules largest nodule in the right lower lobe posteriorly and right suprahilar with narrowing of right upper lobe bronchus and numerous additional new and progressive pulmonary nodules throughout both lungs right hilar lymphadenopathy, patient underwent bronchoscopy and endobronchial ultrasound-guided transbronchial needle aspiration of station 11 R, showed significant macrophages and histiocytes but no malignancy. but there was a concern about possibility of malignancy so patient underwent second bronchoscopy on October 28, 2019 which showed a fungating mass was seen at the orifice of right upper lobe bronchus with complete occlusion of airways. The right middle lobe and right lower lobe bronchi were examined up to third subsegmental with no abnormality. Biopsy was obtained came back positive for metastatic colorectal adenocarcinoma as immunohistochemistry stain were positive for CK20 and CDX2. Mr Khan was started on systemic chemotherapy with a Avastin/FOLFIRI on November 16, 2019. He has tolerated it well thus far. [facility] [place] sequencing was ordered and report came back on December 19, 2019 showed HER-2/peggy negative and says it was not possible to calculate tumor mutational burden and MSI/MMR for the sample because the sequencing data did not reach the minimum depth of coverage required to provide a result on these biomarkers. Came for follow-up, denies any specific complaints except generalized weakness and fatigue, as per patient last time chemotherapy did not bother him much compared to previously, no more nausea or vomiting no diarrhea or constipation no mouth sores no jaundice. No abdominal pain. No fever or chills. tolerating FOLFIRI/Avastin well Medications: Ibuprofen 3 Tablet (of 200 mg) Oral daily PRN, PriLOSEC Capsule Delayed Release Oral daily Allergies: No Known Allergies. Review of Systems: Review of Systems is not available for this patient. Vital Signs: Performed on Feb 08, 2020 08:30 Height - 70.00 in Weight - 193.0 lbs (LOW) BSA - 2.06 sq.m BMI - 27.69 Temperature - 97.9 F (LOW) Pulse - 83 /min Respiration - 20 /min BP - 168/104 mm(hg) (HIGH) O2 Sat - 97 % Pain - 0 Performance Status: 0 - Fully active, able to carry on all predisease activities without restrictions. (ECOG) Physical Examination: ENMT - No mouth sores, no thrush, no jaundice, Respiratory - Lungs are clear to auscultation, Cardiovascular - Regular rate and rhythm of heart, Abdomen - Soft, bowel sounds present no focal tenderness, Extremities - No visible edema or rash. Lab/Imaging: Test performed on Feb 07, 2020 09:57 Sodium 140 mmol/L Potassium 3.3 mmol/L Chloride 105 mmol/L CO2 25 mmol/L Anion Gap 13.3 BUN 12 mg/dL Creatinine 0.7 mg/dL Cr Clearance (Est) 119.3400 mL/min Glucose 154 mg/dL Osmolality - Calculated 293 mOsm/kg Calcium 9.3 mg/dL Protein, Total 6.7 g/dL Albumin 4.0 g/dL Globulin 2.7 g/dL Bilirubin, Total 0.3 mg/dL ALT (SGPT) 18 U/L AST (SGOT) 17 U/L Alkaline Phosphatase 96 IU/L WBC 5.3 10 3/uL RBC 5.06 10 6/uL HGB 13.1 g/dL HCT 40.2 % MCV 79.4 fL MCH 25.9 pg MCHC 32.6 g/dL RDW 16.2 % Platelet Count 219 10 3/cmm MPV 9.4 fL Neutrophils 3.34 10 3/uL Lymphocytes 1.2 10 3/uL Monocytes 0.4 10 3/uL Eosinophils 0.2 10 3/uL Basophils 0.1 10 3/uL Neutrophil % 62.9 % Lymphocyte % 23.4 % Monocyte % 7.7 % Eosinophil % 4.3 % Basophils % 1.3 % NRBC % 0 % Test performed on Jan 11, 2020 00:00 Manual Diff Cancelled via OM: Cancelled in Connected System Test performed on Dec 14, 2019 10:20 Ua Color Yellow Ua Appearance Clear Ua Glucose Norm Ua Bilirubin Neg Ua Ketones Negative Ua Specific [place] 1.010 Ua Blood Neg Ua pH 7.0 Ua Protein Neg Ua Nitrites Negative Ua Leukocyte Esterase Negative Test performed on Nov 08, 2019 15:10 CEA 3.0 ng/mL Impression: Invasive adenocarcinoma of upper rectum status post APR on 03/05/2017 final pathology showed tumor size 5.5 x 5.4 cm low-grade, tumor invades perirectal adipose p T3, lymphovascular invasion present, no perineural invasion seen 1 out of 18 positive lymph nodes N1a , extranodal extension present N1 stage IIIA No loss of nuclear expression of MMR protein Elevated PSA, on 03/12/2017 it was 35.20 with prostate enlargement, being followed by Dr. Martinez. s/p chemoradiation with Xeloda as chemosensitizer. till 11/03/17 discussed with patient regarding the role of adjuvant chemotherapy in stage IIIa rectal cancer, as literature has shown adjuvant chemotherapy improves disease-free survival. Patient has been reluctant to consider chemotherapy because of severe diarrhea during chemoradiation for rectal CA. He was assured that we will adjust/modify his adjuvant chemotherapy to make it tolerable. Patient, now agreed to get port placement and for adjuvant chemotherapy modified FOLFOX every 2 weeks ???12. All the side effect and possible benefits were discussed in detail again and patient expressed understanding. Mr Khan agreed. He was referred back to Dr. Merritt for Port-A-Cath placement and began his first cycle of FOLFOX on 02/09/2018 .Patient developed abdominal pain for which he underwent CT scan of abdomen on 03/19/2018 showed moderate constipation, and stable rectosigmoid anastomosis with no recurrent mass or adjacent adenopathy and bilateral lower lobe pulmonary nodules are stable since 02/03/2017. No evidence of metastatic disease elsewhere. Following day patient had large bowel movement and since then no more abdominal pain. Patient expressed intolerance to 5-FU infusion chemotherapy and also consider it inconvenient so requesting Xeloda pills instead of 5-FU infusion. His treatment plan was changed to XELOX beginning 03/23/2018. He has tolerated it well thus far. He completed 5 of the planned [address] PET scan done on 11/06/2018 showed prostate is enlarged, measuring 6 cm in diameter with diffusely increased FDG activity, most intense in the central prostate. Normal tracer activity at the rectal anastomosis There are 2 pulmonary nodules in the right lower lobe and one in the right upper lobe, the index nodule in the right lower lobe measuring 1.1 x 1.6 cm with SUV of 3.5. Most consistent with metastatic disease, likely from colonic primary. Multiple hypermetabolic mediastinal lymph nodes are present, consistent with metastatic disease, in the inferior right perihilar 1.9 cm, 5.2 SUV. Subcarinal, prevascular, right paratracheal, 1.9 cm, 6.8 SUV. Right hilar territories. Subcentimeter nodes are also noted in the superior right paratracheal region. Too small to characterize. Mr. Khan had established care with Dr. Esquivel in pulmonology. A bronchoscopy was performed and he was found to have sarcoidosis which was treated with some success however a follow-up CT of the chest done on August 29, 2019 showed interval progression of disease with bilateral pulmonary nodules with the largest nodule in the right lower lobe posteriorly. There was activity in the right suprahilar with narrowing of the right upper lobe bronchus and numerous additional new and progressive pulmonary nodules throughout both lungs. There was right hilar lymphadenopathy. He underwent another bronchoscopy and endobronchial ultrasound-guided transbronchial needle aspiration of station 11 R. This showed significant macrophages and histiocytes but no malignancy. However given his history there was concern about the possibility of malignancy therefore he underwent a second bronchoscopy on October 28, 2019. This did show a fungating mass at the orifice of the right upper lobe bronchus with complete occlusion of both airways. The right middle lobe and right lower lobe bronchi were examined up to a third subsegmental with no abnormality. A biopsy was obtained and did report positive for metastatic colorectal adenocarcinoma. Immunohistochemistry stains were positive for CK20 and CDX2. Mr. Khan was advised to pursue pallitave chemotherapy with FOLFOX Avastin. He began his first dose on November 16, 2019. Plan: Discussed with patient regarding his labs white blood count 5.3 hemoglobin 13.1 hematocrit 40.2 platelets 219,000 CMP within normal limit except potassium 3.3 glucose 154 Clinically, patient doing well, tolerating systemic therapy with FOLFIRI/Avastin well but with expected side effects, patient tolerated modified dose better, will proceed with next cycle #6 with FOLFIRI/Avastin today and then he will return to clinic in 2 weeks with CBC CMP and follow-up CT PET scan to assess disease response. Mild hypokalemia, will consider potassium supplement and monitor potassium level. Signed By: Paula Singh M.D. <<Signature on File>>
[2020-02-08] MEDS: alteplase 1 mg/mL SDV 2 mL 2 MG IV (09:03)
[2020-02-08] MEDS: sodium chloride 0.9% 250 ML 75 ML IV (09:37)
[2020-02-08] MEDS: atropine 1 mg/mL SDV 1 mL 0.4 MG IV (10:00)
[2020-02-21 12:02] LABS: Basophils # 0.1 10^3/uL (0.0-0.1); Basophils % 1.1 %; Eosinophils # 0.2 10^3/uL (0.0-0.8); Eosinophils % 3.1 %; Hematocrit 40.5 % (42.0-52.0); Hemoglobin 13.2 g/dL (11.7-16.6); Lymphocytes # 1.3 10^3/uL (0.8-4.8); Lymphocytes % 20.6 %; Mean Corpuscular HGB Conc 32.6 g/dL (30.0-36.0); Mean Corpuscular Hemoglobin 26.1 pg (28.0-34.0); Mean Corpuscular Volume 80.2 fL (80-94); Mean Platelet Volume 9.5 fL (7.4-10.4); Monocytes # 0.5 10^3/uL (0.2-0.9); Monocytes % 7.8 %; Neutrophils # 4.13 10^3/uL (1.8-7.7); Neutrophils % 66.9 %; Nucleated Red Blood Cells % 0 %; Platelet Count 249 10^3/cmm (130-400); Red Blood Count 5.05 10^6/uL (4.1-5.3); Red Cell Distribution Width 15.9 % (12.1-15.1); White Blood Count 6.2 10^3/uL (4.0-10.0)
[2020-02-21 12:21] LABS: Alanine Aminotransferase 18 U/L (0-41); Albumin Level 4.1 g/dL (3.5-5.2); Alkaline Phosphatase 97 IU/L (40-130); Anion Gap 14.8 (5-19); Aspartate Amino Transferase 14 U/L (0-40); Blood Urea Nitrogen 13 mg/dL (8-23); Calcium 9.1 mg/dL (8.5-10.5); Carbon Dioxide 27 mmol/L (22-29); Chloride 102 mmol/L (98-107); Globulin 2.7 g/dL (1.3-4.6); Glucose 105 mg/dL (65-115); Osmolality Calculated 290 mOsm/kg (285-295); Potassium 3.8 mmol/L (3.5-5.1); Sodium 140 mmol/L (136-145); Total Bilirubin 0.3 mg/dL (0.15-1.2); Total Protein 6.8 g/dL (6.6-8.7)
--- NOTE | 2020-02-22 15:50 | ONC FU_ITS ---
follow up note Patient: Oswaldo Khan Unit #: [id number]: 1945 Dicatated By: Paula Singh M.D.Date of Visit:Feb 22, 2020 Onc Med Follow-up/Prog Note History of Present Illness: Mr Faye is a 74-year-old gentleman with history of abdominal pain and rectal bleed underwent colonoscopy and was found to have a rectal mass. A biopsy was obtained and it confirmed adenocarcinoma. Mr Khan then underwent low anterior resection on 03/05/2017. The final pathology report showed invasive adenocarcinoma , tumor invades perirectal adipose and 1 out of 18 lymph nodes was positive with extranodal extension and no loss of nuclear expression of MMR protein . Mr Khan also has history of elevated PSA. On 03/12/2017 his PSA was 35.20. As per patient he has seen Dr. Sunil Martinez , urologist, who is following him and CT scan of abdomen pelvis done on 03/19/2017 showed some prominent retroperitoneal lymph nodes somewhat more prominent than in 2013 Mr Khan took combined chemoradiation for 3 days the first week but then accidentally pulled his [place] cath and sustained urethral injury. He was evaluated by Dr. Martinez and underwent cystoscopy exam and reinsertion of [place] cath, during this time combined chemoradiation therapy was on hold. He resumed 4 weeks after . Patient was advised to take Xeloda daily for 5 days per week during radiation therapy. His Xeloda daily the days of radiation only was held few days due to persistent diarrhea. He concluded his chemoradiation on 11/03/2017. The diarrhea resolved at that time. Mr. Khan has been advised to pursue adjuvant chemotherapy with FOLFOX. had a long discussion regarding the role of adjuvant chemotherapy. he agreed to get Port-A-Cath placement but then at the last minute he changed his mind. Since that time though, he has agreed to pursue the recommended adjuvant chemotherapy. He completed 2 cycles of modified FOLFOX as of 03/04/2018. At his 03/16/2018 appointment, he stated had been having increased abdominal pain and decreased energy. He stated that he did not complete the full 2 days of the fluorouracil pump last one and this he felt like it was making me feel pretty bad . CT scan of the abdomen was done on on 03/19/2018 show stable rectosigmoid anastomosis with no recurrent or adjacent adenopathy. Moderate diffuse constipation. , at the patient's request and and his refusal to continue with 5-FU infusion, changed the chemotherapy plan of care to XELOX on 03/23/2018 and with the plan to give him 6 cycles. Mr. Khan is tolerated it well at this time. 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 He completed 5/6 cycles. .At patient's request Adjuvant chemotherapy with xelox concluded on 07/05/2018 CT scan of abdomen pelvis done on 09/23/2018 showed no acute findings but 1.3 cm nodule in the right lower lobe of the lung. CT PET scan done on 11/06/2018 showed enlarged prostate with diffusely increase uptake Malignant appearing right lung nodules, most likely from colonic carcinoma Malignant mediastinal lymph nodes, most likely from colonic carcinoma No evidence for local prostate metastatic nodes. Normal activity at rectal anastomosis. in the recent past seen Dr. Esquivel glass blowing lathe operator who did bronchoscopy and patient was diagnosed with sarcoidosis which was treated with some success and follow-up CT scan of chest done on August 30, 2019 showed evidence of interval progression of disease with bilateral pulmonary nodules largest nodule in the right lower lobe posteriorly and right suprahilar with narrowing of right upper lobe bronchus and numerous additional new and progressive pulmonary nodules throughout both lungs right hilar lymphadenopathy, patient underwent bronchoscopy and endobronchial ultrasound-guided transbronchial needle aspiration of station 11 R, showed significant macrophages and histiocytes but no malignancy. but there was a concern about possibility of malignancy so patient underwent second bronchoscopy on October 28, 2019 which showed a fungating mass was seen at the orifice of right upper lobe bronchus with complete occlusion of airways. The right middle lobe and right lower lobe bronchi were examined up to third subsegmental with no abnormality. Biopsy was obtained came back positive for metastatic colorectal adenocarcinoma as immunohistochemistry stain were positive for CK20 and CDX2. Mr Khan was started on systemic chemotherapy with a Avastin/FOLFIRI on November 16, 2019. He has tolerated it well thus far. [facility] sequencing was ordered and report came back on December 19, 2019 showed HER-2/peggy negative and says it was not possible to calculate tumor mutational burden and MSI/MMR for the sample because the sequencing data did not reach the minimum depth of coverage required to provide a result on these biomarkers. Came for follow-up, denies any specific complaint except off and on headaches otherwise no fever chills, no nausea or vomiting, no diarrhea or constipation, no melena or hematochezia, no jaundice, no hemoptysis or hematemesis Patient had CT PET scan done on last Thursday, report is pending tolerating FOLFIRI/Avastin well Medications: Ibuprofen 3 Tablet (of 200 mg) Oral daily PRN, PriLOSEC Capsule Delayed Release Oral daily Allergies: No Known Allergies. Review of Systems: Review of Systems is not available for this patient. Vital Signs: Performed on Feb 22, 2020 09:03 Height - 70.00 in Weight - 193.4 lbs (HIGH) BSA - 2.06 sq.m BMI - 27.75 Temperature - 97.9 F (LOW) Pulse - 92 /min Respiration - 20 /min BP - 167/100 mm(hg) (HIGH) O2 Sat - 92 % (LOW) Pain - 0 Performance Status: 0 - Fully active, able to carry on all predisease activities without restrictions. (ECOG) Physical Examination: ENMT - No mouth sores, no thrush, no jaundice, Respiratory - Lungs are clear to auscultation, Cardiovascular - Regular rate and rhythm of heart, Abdomen - Soft, bowel sounds present, Extremities - No visible edema. Lab/Imaging: Test performed on Feb 07, 2020 09:57 Sodium 140 mmol/L Potassium 3.3 mmol/L Chloride 105 mmol/L CO2 25 mmol/L Anion Gap 13.3 BUN 12 mg/dL Creatinine 0.7 mg/dL Cr Clearance (Est) 119.3400 mL/min Glucose 154 mg/dL Osmolality - Calculated 293 mOsm/kg Calcium 9.3 mg/dL Protein, Total 6.7 g/dL Albumin 4.0 g/dL Globulin 2.7 g/dL Bilirubin, Total 0.3 mg/dL ALT (SGPT) 18 U/L AST (SGOT) 17 U/L Alkaline Phosphatase 96 IU/L WBC 5.3 10 3/uL RBC 5.06 10 6/uL HGB 13.1 g/dL HCT 40.2 % MCV 79.4 fL MCH 25.9 pg MCHC 32.6 g/dL RDW 16.2 % Platelet Count 219 10 3/cmm MPV 9.4 fL Neutrophils 3.34 10 3/uL Lymphocytes 1.2 10 3/uL Monocytes 0.4 10 3/uL Eosinophils 0.2 10 3/uL Basophils 0.1 10 3/uL Neutrophil % 62.9 % Lymphocyte % 23.4 % Monocyte % 7.7 % Eosinophil % 4.3 % Basophils % 1.3 % NRBC % 0 % Test performed on Jan 11, 2020 00:00 Manual Diff Cancelled via OM: Cancelled in Connected System Test performed on Dec 14, 2019 10:20 Ua Color Yellow Ua Appearance Clear Ua Glucose Norm Ua Bilirubin Neg Ua Ketones Negative Ua Specific [place] 1.010 Ua Blood Neg Ua pH 7.0 Ua Protein Neg Ua Nitrites Negative Ua Leukocyte Esterase Negative Test performed on Nov 08, 2019 15:10 CEA 3.0 ng/mL Impression: Invasive adenocarcinoma of upper rectum status post APR on 03/05/2017 final pathology showed tumor size 5.5 x 5.4 cm low-grade, tumor invades perirectal adipose p T3, lymphovascular invasion present, no perineural invasion seen 1 out of 18 positive lymph nodes N1a , extranodal extension present N1 stage IIIA No loss of nuclear expression of MMR protein Elevated PSA, on 03/12/2017 it was 35.20 with prostate enlargement, being followed by Dr. Martinez. s/p chemoradiation with Xeloda as chemosensitizer. till 11/03/17 discussed with patient regarding the role of adjuvant chemotherapy in stage IIIa rectal cancer, as literature has shown adjuvant chemotherapy improves disease-free survival. Patient has been reluctant to consider chemotherapy because of severe diarrhea during chemoradiation for rectal CA. He was assured that we will adjust/modify his adjuvant chemotherapy to make it tolerable. Patient, now agreed to get port placement and for adjuvant chemotherapy modified FOLFOX every 2 weeks ???12. All the side effect and possible benefits were discussed in detail again and patient expressed understanding. Mr Khan agreed. He was referred back to Dr. Merritt for Port-A-Cath placement and began his first cycle of FOLFOX on 02/09/2018 .Patient developed abdominal pain for which he underwent CT scan of abdomen on 03/19/2018 showed moderate constipation, and stable rectosigmoid anastomosis with no recurrent mass or adjacent adenopathy and bilateral lower lobe pulmonary nodules are stable since 02/03/2017. No evidence of metastatic disease elsewhere. Following day patient had large bowel movement and since then no more abdominal pain. Patient expressed intolerance to 5-FU infusion chemotherapy and also consider it inconvenient so requesting Xeloda pills instead of 5-FU infusion. His treatment plan was changed to XELOX beginning 03/23/2018. He has tolerated it well thus far. He completed 5 of the planned [address] PET scan done on 11/06/2018 showed prostate is enlarged, measuring 6 cm in diameter with diffusely increased FDG activity, most intense in the central prostate. Normal tracer activity at the rectal anastomosis There are 2 pulmonary nodules in the right lower lobe and one in the right upper lobe, the index nodule in the right lower lobe measuring 1.1 x 1.6 cm with SUV of 3.5. Most consistent with metastatic disease, likely from colonic primary. Multiple hypermetabolic mediastinal lymph nodes are present, consistent with metastatic disease, in the inferior right perihilar 1.9 cm, 5.2 SUV. Subcarinal, prevascular, right paratracheal, 1.9 cm, 6.8 SUV. Right hilar territories. Subcentimeter nodes are also noted in the superior right paratracheal region. Too small to characterize. Mr. Khan had established care with Dr. Esquivel in pulmonology. A bronchoscopy was performed and he was found to have sarcoidosis which was treated with some success however a follow-up CT of the chest done on August 29, 2019 showed interval progression of disease with bilateral pulmonary nodules with the largest nodule in the right lower lobe posteriorly. There was activity in the right suprahilar with narrowing of the right upper lobe bronchus and numerous additional new and progressive pulmonary nodules throughout both lungs. There was right hilar lymphadenopathy. He underwent another bronchoscopy and endobronchial ultrasound-guided transbronchial needle aspiration of station 11 R. This showed significant macrophages and histiocytes but no malignancy. However given his history there was concern about the possibility of malignancy therefore he underwent a second bronchoscopy on October 28, 2019. This did show a fungating mass at the orifice of the right upper lobe bronchus with complete occlusion of both airways. The right middle lobe and right lower lobe bronchi were examined up to a third subsegmental with no abnormality. A biopsy was obtained and did report positive for metastatic colorectal adenocarcinoma. Immunohistochemistry stains were positive for CK20 and CDX2. Mr. Khan was advised to pursue pallitave chemotherapy with FOLFOX Avastin. He began his first dose on November 16, 2019. Plan: Discussed with patient regarding his labs white blood count 6.2 hemoglobin 13.2 hematocrit 40.5 platelets 249,000 CMP within normal limits Clinically, patient is doing well with no new signs symptom suggestive of disease progression tolerating a Avastin/FOLFIRI well but with expected side effect now with off and on headache and his vitals shows elevated blood pressure could be due to Avastin, patient is not on any antihypertensive so we will start him on lisinopril 5 mg p.o. daily and monitor his blood pressure and adjust dose accordingly. His CT PET scan report is pending but was discussed with Dr. Calzada radiologist who said, prelim report shows improvement in his pulmonary nodules, no abnormality in the liver, and persistent pelvic lesion. We will obtain his PET scan report and discussed with patient in the meantime patient wants to postpone his chemotherapy till Thursday. He will return to clinic on Thursday for next cycle of systemic therapy with Avastin/FOLFIRI and plan to give him 6 more cycles of chemo followed by CT PET scan Signed By: Paula Singh M.D. <<Signature on File>>
[2020-02-27] MEDS: alteplase 1 mg/mL SDV 2 mL 2 MG IV ×2 (09:35→10:35)
[2020-02-27] MEDS: sodium chloride 0.9% 250 ML 75 ML IV (10:57)
[2020-02-27] MEDS: atropine 1 mg/mL SDV 1 mL 0.4 MG IV (11:20)
[2020-02-27] MEDS: OLANZapine 10 mg TABLET PO (14:00)
== END 2020-03-05 23:59 | disposition home or self-care (01) ==
LOC: ONCMED 05:28
PROVIDERS: Internal Medicine Medical Oncology; PCP Nurse Practitioner; Visit Provider Internal Medicine Hematology & Oncology
DX: Z51.11 Encounter for antineoplastic chemotherapy (principal); C19 Malignant neoplasm of rectosigmoid junction; C61 Malignant neoplasm of prostate; C78.01 Secondary malignant neoplasm of right lung; R97.20 Elevated prostate specific antigen [PSA]; Z79.899 Other long term (current) drug therapy
CPT/HCPCS: 36415; 36593; 80053; 85025; 96367; 96368; 96375; 96413; 96415; 96416; 96417; 96523; 99214; J0461; J0640; J1100; J1453; J2469; J2997; J7050; J9035; J9190; J9206

== ENCOUNTER 2020-04-03 05:23 | Outpatient (RCR) | payer MEDICARE, MEDICAID, SELFPAY ==
[2020-03-09 11:17] LABS: Basophils # 0.1 10^3/uL (0.0-0.1); Basophils % 0.9 %; Eosinophils # 0.1 10^3/uL (0.0-0.8); Eosinophils % 1.9 %; Hematocrit 39.2 % (42.0-52.0); Lymphocytes # 1.2 10^3/uL (0.8-4.8); Lymphocytes % 20.4 %; Mean Corpuscular HGB Conc 33.2 g/dL (30.0-36.0); Mean Corpuscular Hemoglobin 26.4 pg (28.0-34.0); Mean Corpuscular Volume 79.5 fL (80-94); Mean Platelet Volume 9.2 fL (7.4-10.4); Monocytes # 0.5 10^3/uL (0.2-0.9); Monocytes % 8.6 %; Neutrophils # 3.93 10^3/uL (1.8-7.7); Neutrophils % 67.9 %; Nucleated Red Blood Cells % 0 %; Platelet Count 232 10^3/cmm (130-400); Red Blood Count 4.93 10^6/uL (4.1-5.3); White Blood Count 5.8 10^3/uL (4.0-10.0)
[2020-03-09 11:35] LABS: Alanine Aminotransferase 17 U/L (0-41); Albumin Level 4.1 g/dL (3.5-5.2); Alkaline Phosphatase 93 IU/L (40-130); Anion Gap 13.5 (5-19); Aspartate Amino Transferase 15 U/L (0-40); Blood Urea Nitrogen 12 mg/dL (8-23); Calcium 9.4 mg/dL (8.5-10.5); Carbon Dioxide 27 mmol/L (22-29); Chloride 102 mmol/L (98-107); Globulin 2.4 g/dL (1.3-4.6); Glucose 152 mg/dL (65-115); Osmolality Calculated 291 mOsm/kg (285-295); Potassium 3.5 mmol/L (3.5-5.1); Sodium 139 mmol/L (136-145); Total Bilirubin 0.3 mg/dL (0.15-1.2); Total Protein 6.5 g/dL (6.6-8.7)
[2020-03-20 09:48] LABS: Basophils # 0.1 10^3/uL (0.0-0.1); Basophils % 1.6 %; Eosinophils # 0.2 10^3/uL (0.0-0.8); Eosinophils % 3.6 %; Hematocrit 41.6 % (42.0-52.0); Hemoglobin 13.5 g/dL (11.7-16.6); Lymphocytes # 1.2 10^3/uL (0.8-4.8); Lymphocytes % 22.6 %; Mean Corpuscular HGB Conc 32.5 g/dL (30.0-36.0); Mean Corpuscular Hemoglobin 26.3 pg (28.0-34.0); Mean Corpuscular Volume 80.9 fL (80-94); Mean Platelet Volume 9.3 fL (7.4-10.4); Monocytes # 0.4 10^3/uL (0.2-0.9); Monocytes % 7.8 %; Neutrophils # 3.52 10^3/uL (1.8-7.7); Neutrophils % 64.2 %; Nucleated Red Blood Cells % 0 %; Platelet Count 255 10^3/cmm (130-400); Red Blood Count 5.14 10^6/uL (4.1-5.3); Red Cell Distribution Width 15.8 % (12.1-15.1); White Blood Count 5.5 10^3/uL (4.0-10.0)
[2020-03-20] MEDS: alteplase 1 mg/mL SDV 2 mL 2 MG INTRACATH (09:50)
[2020-03-20 10:07] LABS: Alanine Aminotransferase 15 U/L (0-41); Albumin Level 4.1 g/dL (3.5-5.2); Alkaline Phosphatase 99 IU/L (40-130); Anion Gap 12.6 (5-19); Aspartate Amino Transferase 16 U/L (0-40); Blood Urea Nitrogen 11 mg/dL (8-23); Calcium 10.1 mg/dL (8.5-10.5); Carbon Dioxide 28 mmol/L (22-29); Chloride 102 mmol/L (98-107); Globulin 2.7 g/dL (1.3-4.6); Glucose 95 mg/dL (65-115); Osmolality Calculated 287 mOsm/kg (285-295); Potassium 3.6 mmol/L (3.5-5.1); Sodium 139 mmol/L (136-145); Total Bilirubin 0.4 mg/dL (0.15-1.2); Total Protein 6.8 g/dL (6.6-8.7)
[2020-03-20 11:56] LABS: Add Urine Microscopic? NO
[2020-03-20 12:53] LABS: Bilirubin Urine Neg (Negative); Blood Urine Neg (Negative); Glucose Urine UA Norm (Normal); Ketones Urine Negative (Negative); Leukocyte Esterase Urine Negative (Negative); Nitrate Urine Negative (Negative); Protein Urine Neg (Negative); Urine Appearance Clear (CLEAR); Urine Color Yellow (Yellow); Urobilinogen Urine Norm (Negative); pH Urine 7 (5-7)
--- NOTE | 2020-03-25 18:03 | ONC FU_ITS ---
[facility] Patient Note Patient: Oswaldo Khan Unit #: [id number]: 1945 Dictated By: Arabella GalvezDate of Visit: Mar 20, 2020 Onc MED Follow-Up/Prog Note Chief Complaint: Upper rectal carcinoma status post resection and elevated PSA level History of Present Illness: Mr Faye is a 74-year-old gentleman with history of abdominal pain and rectal bleed underwent colonoscopy and was found to have a rectal mass. A biopsy was obtained and it confirmed adenocarcinoma. Mr Khan then underwent low anterior resection on 03/05/2017. The final pathology report showed invasive adenocarcinoma , tumor invades perirectal adipose and 1 out of 18 lymph nodes was positive with extranodal extension and no loss of nuclear expression of MMR protein . Mr Khan also has history of elevated PSA. On 03/12/2017 his PSA was 35.20. As per patient he has seen Dr. Sunil Martinez , urologist, who is following him and CT scan of abdomen pelvis done on 03/19/2017 showed some prominent retroperitoneal lymph nodes somewhat more prominent than in 2013 Mr Khan took combined chemoradiation for 3 days the first week but then accidentally pulled his [place] cath and sustained urethral injury. He was evaluated by Dr. Martinez and underwent cystoscopy exam and reinsertion of [place] cath, during this time combined chemoradiation therapy was on hold. He resumed 4 weeks after . Patient was advised to take Xeloda daily for 5 days per week during radiation therapy. His Xeloda daily the days of radiation only was held few days due to persistent diarrhea. He concluded his chemoradiation on 11/03/2017. The diarrhea resolved at that time. Mr. Khan has been advised to pursue adjuvant chemotherapy with FOLFOX. had a long discussion regarding the role of adjuvant chemotherapy. he agreed to get Port-A-Cath placement but then at the last minute he changed his mind. Since that time though, he has agreed to pursue the recommended adjuvant chemotherapy. He completed 2 cycles of modified FOLFOX as of 03/04/2018. At his 03/16/2018 appointment, he stated had been having increased abdominal pain and decreased energy. He stated that he did not complete the full 2 days of the fluorouracil pump last one and this he felt like it was making me feel pretty bad . CT scan of the abdomen was done on on 03/19/2018 show stable rectosigmoid anastomosis with no recurrent or adjacent adenopathy. Moderate diffuse constipation. At the patient's request and and his refusal to continue with 5-FU infusion, it was opted to change the chemotherapy plan of care to XELOX on 03/23/2018 and with the plan to give him 6 cycles. Mr. Khan is tolerated it well at this time. 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 He completed 5/6 cycles. At his request, Adjuvant chemotherapy with Xelox concluded on 07/05/2018. CT scan of abdomen pelvis done on 09/23/2018 showed no acute findings but 1.3 cm nodule in the right lower lobe of the lung. CT PET scan done on 11/06/2018 showed enlarged prostate with diffusely increase uptake Malignant appearing right lung nodules, most likely from colonic carcinoma Malignant mediastinal lymph nodes, most likely from colonic carcinoma No evidence for local prostate metastatic nodes. Normal activity at rectal anastomosis. Mr Khan had followup in August [address] 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 A bronchoscopy was obtained and Mr Khan was diagnosed with sarcoidosis. This was treated with some success but follow-up CT scan of chest done on August 30, 2019 showed evidence of interval progression of disease with bilateral pulmonary nodules. The largest nodule in the right lower lobe posteriorly and right suprahilar with narrowing of right upper lobe bronchus and numerous additional new and progressive pulmonary nodules throughout both lungs right hilar lymphadenopathy. The patient underwent bronchoscopy and endobronchial ultrasound-guided transbronchial needle aspiration of station 11 R, showed significant macrophages and histiocytes but no malignancy. but there was a concern about possibility of malignancy so patient underwent second bronchoscopy on October 28, 2019 which showed a fungating mass was seen at the orifice of right upper lobe bronchus with complete occlusion of airways. The right middle lobe and right lower lobe bronchi were examined up to third subsegmental with no abnormality. Biopsy was obtained came back positive for metastatic colorectal adenocarcinoma as immunohistochemistry stain were positive for CK20 and CDX2. Mr Khan was started on systemic chemotherapy with a Avastin/FOLFIRI on November 16, 2019. He has tolerated it well thus far. [facility] sequencing was ordered and report came back on December 19, 2019 showed HER-2/peggy negative and says it was not possible to calculate tumor mutational burden and MSI/MMR for the sample because the sequencing data did not reach the minimum depth of coverage required to provide a result on these biomarkers. Follow-up PET/CT from 02/18/2020 reports pulmonary nodules seen on the prior study were improved on the 02/18/2020 study. The index nodule in the right lower lobe that previously measured 2.7 x 1.8 cm with an SUV of 5.5 now measures 1.4 cm with an SUV of 3.2. The other right upper and left lung nodules are similarly improved. Increasing activity is present in the multiple FDG positive mediastinal nodes; as before, these are most consistent with sarcoidosis. These nodules are distributed in the right paratracheal, inferior right perihilar, subcarinal, prevascular and right hilar territories. The previously described right. Rectal node is unchanged in size but has an SUV of 4.2 up from 2.3 previously and consistent with recurrence. Rectal activity is prominent but is most likely physiologic. Mr. Khan is here today for follow-up. He is due to for cycle 8 FOLFIRI/Avastin. His last treatment was on 02/27/2020. He reports today that he is having quite a bit of nausea. He states he has been having significant headaches for about the last 3 weeks. He states that he thinks it is his blood pressure but they bother him to the point to where it is hard for him to get around at times. He states that he is also noted that his hearing is worse as if it could get any worse . He has been extremely hard of hearing but states is even worse now. He reports that he had an episode of chest discomfort last evening he states it really was not tightness or heaviness but I pokey stinging sensation. He states it lasted about 5 to 10 minutes and went away on its own. He reported no specific shortness of breath or nausea with that episode. He does report that his shortness of breath seems to be maybe just a little worse . He denies any hemoptysis. He states he does have a smoker's cough . He states his no worse than what it has been. He has persistent nausea. He states he does take a nausea medicine that seems to help but as soon as the medicine wears off it comes right back. He states that he is taking lisinopril 5 mg a day and is still having trouble with his blood pressure. He denies changes in his appetite. He states his energy has decreased. He states is hard for him to get anything down because he is just so tired and because the headache is bothersome at this point. He denies any lower extremity edema. He denies any worsening neuropathy symptoms. He has had no mouth sores, sore throat or difficulty swallowing. His ECOG currently is 2. Past Medical History: Chronic obstructive pulmonary disease Gastroesophageal reflux Past Surgical History: Port placement - dr. allen TRUSP / biopsy in 2017 Appendectomy in 2016 Cholecystectomy in 2016 Liver wedge biopsy in 2016 Hernia repair in 2009 Allergies: No Known Allergies. Medications: Ibuprofen 3 Tablet (of 200 mg) Oral daily PRN Lisinopril 1 Tablet (of 5 mg) Oral daily PriLOSEC Capsule Delayed Release Oral daily Family History: Mr. Khan's mother at age 62: diabetes, and heart attack, and pneumonia. Mr. Khan's father at age 74: Colon Cancer. Mr. Khan has 1 brother who is alive: heart disease. Social History: Mr. Khan is and he is retired. He is a daily smoker who has smoked 1.0 pack/day for 31 years. He has no history of drinking. Review Of Symptoms: Constitutional Denies fevers, chills, night sweats, excessive fatigue or weight loss. States he has been having more headaches for about 3 weeks. Eyes Denies significant visual changes. No diplopia. No amaurosis. ENMT Denies changes in hearing, sore throat, mouth sores, difficulty or changes in swallowing ability, and/or sinus drainage. Hematologic/Lymphatic Denies easy bruising or bleeding. The patient denies any tender or palpable lymph nodes. Respiratory He states he feels that his shortness of breath is a little worse but denies chest pain, cough or hemoptysis. Denies orthopnea. Cardiovascular Denies anginal chest pain, palpitations or orthopnea. Gastrointestinal Denies vomiting, GI bleeding, or constipation. Denies change in bowel habits and/or stool color, no heartburn or early satiety. He states he has had diarrhea and nausea over the weekend but no diarrhea yet today. He states he does have some nausea . Genitourinary (M) Denies hematuria, dysuria, increased frequency, urgency, hesitancy or incontinence. Musculoskeletal Denies joint pain, swelling or redness. No decreased range of motion. Integumentary Denies chronic rashes, inflammation, ulcerations or skin changes. Neurologic Denies headache, blurred vision, and no areas of focal weakness or numbness. Normal gait. No sensory problems. Psychiatric Denies insomnia, depression, eliecer or mood swings. Vital Signs: Performed on Mar 20, 2020 11:22 Height - 70.00 in Weight - 188.4 lbs (LOW) BSA - 2.03 sq.m BMI - 27.03 Temperature - 96.4 F (LOW) Pulse - 69 /min Respiration - 22 /min BP - 195/111 mm(hg) (HIGH) O2 Sat - 96 % Pain - 4,2 - Ambulatory/capable of all self-care, unable to perform any work activities. Up and about more than 50% of waking hours. (ECOG) Physical Examination: Constitutional Alert, oriented, no acute distress. Skin pink, warm and dry. Hard of hearing-worse than his normal. Head Normocephalic; atraumatic. Eyes Conjunctivae and sclerae are clear and without icterus. Pupils are reactive and equal. ENMT Sinuses are nontender. No oral exudates, ulcers, masses, thrush or mucositis. Oropharynx clear. Tongue normal. Neck Supple without masses or thyromegaly. No jugular venous distension. Hematologic/Lymphatic No petechiae or purpura. No tender or palpable lymph nodes in the cervical or supraclavicular area. Respiratory Lungs are clear to auscultation without rhonchi or wheezing. Cardiovascular Regular rate and rhythm of heart without murmurs,clicks, gallops or rubs. Abdomen Non-tender, non-distended or masses, ascites. Good bowel sounds noted in all quads. No guarding or rebound tenderness. Back/Spine Non-tender to palpation. Extremities No visible deformities, no cyanosis, clubbing or edema. Musculoskeletal No tenderness or swelling, normal range of motion without obvious weakness. Integumentary No rashes or lesions. Neurologic No sensory or motor deficits, normal cerebellar function, normal gait. Psychiatric Alert and oriented times three. Coherent speech. Verbalizes understanding of our discussions today. Laboratory:Test performed on Mar 20, 2020 11:47 Ua Color Yellow Ua Appearance Clear Ua Glucose Norm Ua Bilirubin Neg Ua Ketones Negative Ua Specific [place] 1.010 Ua Blood Neg Ua pH 7 Ua Protein Neg Ua Nitrites Negative Ua Leukocyte Esterase Negative Test performed on Mar 20, 2020 09:36 Sodium 139 mmol/L Potassium 3.6 mmol/L Chloride 102 mmol/L CO2 28 mmol/L Anion Gap 12.6 BUN 11 mg/dL Creatinine 0.7 mg/dL Cr Clearance (Est) 119.3400 mL/min Glucose 95 mg/dL Osmolality - Calculated 287 mOsm/kg Calcium 10.1 mg/dL Protein, Total 6.8 g/dL Albumin 4.1 g/dL Globulin 2.7 g/dL Bilirubin, Total 0.4 mg/dL ALT (SGPT) 15 U/L AST (SGOT) 16 U/L Alkaline Phosphatase 99 IU/L WBC 5.5 10 3/uL RBC 5.14 10 6/uL HGB 13.5 g/dL HCT 41.6 % MCV 80.9 fL MCH 26.3 pg MCHC 32.5 g/dL RDW 15.8 % Platelet Count 255 10 3/cmm MPV 9.3 fL Neutrophils 3.52 10 3/uL Lymphocytes 1.2 10 3/uL Monocytes 0.4 10 3/uL Eosinophils 0.2 10 3/uL Basophils 0.1 10 3/uL Neutrophil % 64.2 % Lymphocyte % 22.6 % Monocyte % 7.8 % Eosinophil % 3.6 % Basophils % 1.6 % NRBC % 0 % Impression: Invasive adenocarcinoma of upper rectum status post APR on 03/05/2017 final pathology showed tumor size 5.5 x 5.4 cm low-grade, tumor invades perirectal adipose p T3, lymphovascular invasion present, no perineural invasion seen 1 out of 18 positive lymph nodes N1a , extranodal extension present N1 stage IIIA No loss of nuclear expression of MMR protein Elevated PSA, on 03/12/2017 it was 35.20 with prostate enlargement, being followed by Dr. Martinez. s/p chemoradiation with Xeloda as chemosensitizer. till 11/03/17 discussed with patient regarding the role of adjuvant chemotherapy in stage IIIa rectal cancer, as literature has shown adjuvant chemotherapy improves disease-free survival. Patient has been reluctant to consider chemotherapy because of severe diarrhea during chemoradiation for rectal CA. He was assured that we will adjust/modify his adjuvant chemotherapy to make it tolerable. Patient, now agreed to get port placement and for adjuvant chemotherapy modified FOLFOX every 2 weeks ???12. All the side effect and possible benefits were discussed in detail again and patient expressed understanding. Mr Khan agreed. He was referred back to Dr. Merritt for Port-A-Cath placement and began his first cycle of FOLFOX on 02/09/2018 .Patient developed abdominal pain for which he underwent CT scan of abdomen on 03/19/2018 showed moderate constipation, and stable rectosigmoid anastomosis with no recurrent mass or adjacent adenopathy and bilateral lower lobe pulmonary nodules are stable since 02/03/2017. No evidence of metastatic disease elsewhere. Following day patient had large bowel movement and since then no more abdominal pain. Patient expressed intolerance to 5-FU infusion chemotherapy and also consider it inconvenient so requesting Xeloda pills instead of 5-FU infusion. His treatment plan was changed to XELOX beginning 03/23/2018. He has tolerated it well thus far. He completed 5 of the planned [address] PET scan done on 11/06/2018 showed prostate is enlarged, measuring 6 cm in diameter with diffusely increased FDG activity, most intense in the central prostate. Normal tracer activity at the rectal anastomosis There are 2 pulmonary nodules in the right lower lobe and one in the right upper lobe, the index nodule in the right lower lobe measuring 1.1 x 1.6 cm with SUV of 3.5. Most consistent with metastatic disease, likely from colonic primary. Multiple hypermetabolic mediastinal lymph nodes are present, consistent with metastatic disease, in the inferior right perihilar 1.9 cm, 5.2 SUV. Subcarinal, prevascular, right paratracheal, 1.9 cm, 6.8 SUV. Right hilar territories. Subcentimeter nodes are also noted in the superior right paratracheal region. Too small to characterize. Mr. Khan had established care with Dr. Esquivel in pulmonology. A bronchoscopy was performed and he was found to have sarcoidosis which was treated with some success however a follow-up CT of the chest done on August 29, 2019 showed interval progression of disease with bilateral pulmonary nodules with the largest nodule in the right lower lobe posteriorly. There was activity in the right suprahilar with narrowing of the right upper lobe bronchus and numerous additional new and progressive pulmonary nodules throughout both lungs. There was right hilar lymphadenopathy. He underwent another bronchoscopy and endobronchial ultrasound-guided transbronchial needle aspiration of station 11 R. This showed significant macrophages and histiocytes but no malignancy. However given his history there was concern about the possibility of malignancy therefore he underwent a second bronchoscopy on October 28, 2019. This did show a fungating mass at the orifice of the right upper lobe bronchus with complete occlusion of both airways. The right middle lobe and right lower lobe bronchi were examined up to a third subsegmental with no abnormality. A biopsy was obtained and did report positive for metastatic colorectal adenocarcinoma. Immunohistochemistry stains were positive for CK20 and CDX2. Mr. Khan was advised to pursue pallitave chemotherapy with FOLFOX Avastin. He began his first dose on November 16, 2019. Follow-up PET/CT from 02/18/2020 reports pulmonary nodules seen on the prior study were improved on the 02/18/2020 study. The index nodule in the right lower lobe that previously measured 2.7 x 1.8 cm with an SUV of 5.5 now measures 1.4 cm with an SUV of 3.2. The other right upper and left lung nodules are similarly improved. Increasing activity is present in the multiple FDG positive mediastinal nodes; as before, these are most consistent with sarcoidosis. These nodules are distributed in the right paratracheal, inferior right perihilar, subcarinal, prevascular and right hilar territories. The previously described right. Rectal node is unchanged in size but has an SUV of 4.2 up from 2.3 previously and consistent with recurrence. Rectal activity is prominent but is most likely physiologic. He has completed 7 cycles of FOLFIRI/Avastin. Plan: 1. Metastatic rectal carcinoma: Currently receiving FOLFIRI/Avastin. A. I am holding his planned treatment today due to hypertension. He has a blood pressure today of 195/111. He has recently increased his lisinopril to 5 mg daily. B. We will increase his lisinopril to 10 mg daily. C. He has report of increasing headaches which may be due to the blood pressure, however I am concerned as he is also reporting nausea and increased hard of hearing. If his blood pressure does not improve with the increase of lisinopril or the headaches do not improve with increase in lisinopril, I will request an MRI of the head. D. I have asked for a UA today for Avastin monitoring. E. Today's labs reviewed in detail and discussed with Mr. Khan and a copy was given to him. WBC 5.5, hemoglobin 13.5, platelets 155,000 ANC is 3500. Potassium 3.6 creatinine 0.7 LFTs are normal. UA received after visit was negative for protein. F. Mr. Khan request to wait for follow-up after [place]. So therefore we will see him back in 2 weeks with CBC, CMP, CEA and UA. D. He is encouraged to contact us in the interim should questions or problems arise or if his headache is not improving so that we can order the MRI prior to his visit in 2 weeks. He verbalized understanding. Signed By: Arabella Galvez-, AOKAT Singh MD <<Signature on File>>
[2020-04-03] MEDS: alteplase 1 mg/mL SDV 2 mL 2 MG INTRACATH (10:45)
[2020-04-03 10:48] LABS: Basophils # 0.1 10^3/uL (0.0-0.1); Basophils % 1.3 %; Eosinophils # 0.3 10^3/uL (0.0-0.8); Eosinophils % 3.9 %; Hematocrit 42.9 % (42.0-52.0); Hemoglobin 13.9 g/dL (11.7-16.6); Lymphocytes # 1.5 10^3/uL (0.8-4.8); Lymphocytes % 18.3 %; Mean Corpuscular HGB Conc 32.4 g/dL (30.0-36.0); Mean Corpuscular Hemoglobin 26.2 pg (28.0-34.0); Mean Corpuscular Volume 80.8 fL (80-94); Mean Platelet Volume 8.9 fL (7.4-10.4); Monocytes # 0.6 10^3/uL (0.2-0.9); Monocytes % 7.3 %; Neutrophils % 69.1 %; Nucleated Red Blood Cells % 0 %; Platelet Count 292 10^3/cmm (130-400); Red Blood Count 5.31 10^6/uL (4.1-5.3); Red Cell Distribution Width 15.4 % (12.1-15.1)
[2020-04-03 10:57] LABS: Add Urine Microscopic? NO
[2020-04-03 11:03] LABS: Urine Appearance Clear (CLEAR); Urine Color Yellow (Yellow); pH Urine 5 (5-7)
[2020-04-03 11:04] LABS: Bilirubin Urine Neg (Negative); Blood Urine Neg (Negative); Glucose Urine UA Norm (Normal); Ketones Urine Negative (Negative); Leukocyte Esterase Urine Negative (Negative); Nitrate Urine Negative (Negative); Protein Urine Neg (Negative); Specific Gravity, Urine 1.015 (1.005-1.030); Urobilinogen Urine Norm (Negative)
[2020-04-03 11:08] LABS: Alanine Aminotransferase 14 U/L (0-41); Albumin Level 3.9 g/dL (3.5-5.2); Alkaline Phosphatase 121 IU/L (40-130); Anion Gap 12.8 (5-19); Aspartate Amino Transferase 15 U/L (0-40); Blood Urea Nitrogen 11 mg/dL (8-23); Calcium 9.2 mg/dL (8.5-10.5); Carbon Dioxide 27 mmol/L (22-29); Chloride 102 mmol/L (98-107); Globulin 2.9 g/dL (1.3-4.6); Glucose 121 mg/dL (65-115); Osmolality Calculated 287 mOsm/kg (285-295); Potassium 3.8 mmol/L (3.5-5.1); Sodium 138 mmol/L (136-145); Total Bilirubin 0.3 mg/dL (0.15-1.2); Total Protein 6.8 g/dL (6.6-8.7)
[2020-04-03 11:43] LABS: Carcinoembryonic Antigen 2.9 ng/mL (0.0-4.7)
--- NOTE | 2020-04-08 21:54 | ONC FU_ITS ---
[facility] Patient Note Patient: Oswaldo Khan Unit #: [id number]: [id number] Dictated By: Arabella GalvezDate of Visit: Apr 03, 2020 Onc MED Follow-Up/Prog Note Chief Complaint: Upper rectal carcinoma status post resection and elevated PSA level History of Present Illness: Mr Faye is a 74-year-old gentleman with history of abdominal pain and rectal bleed underwent colonoscopy and was found to have a rectal mass. A biopsy was obtained and it confirmed adenocarcinoma. Mr Khan then underwent low anterior resection on 03/05/2017. The final pathology report showed invasive adenocarcinoma , tumor invades perirectal adipose and 1 out of 18 lymph nodes was positive with extranodal extension and no loss of nuclear expression of MMR protein . Mr Khan also has history of elevated PSA. On 03/12/2017 his PSA was 35.20. As per patient he has seen Dr. Sunil Martinez , urologist, who is following him and CT scan of abdomen pelvis done on 03/19/2017 showed some prominent retroperitoneal lymph nodes somewhat more prominent than in 2013 Mr Khan took combined chemoradiation for 3 days the first week but then accidentally pulled his [place] cath and sustained urethral injury. He was evaluated by Dr. Martinez and underwent cystoscopy exam and reinsertion of Mc[place]ur cath, during this time combined chemoradiation therapy was on hold. He resumed 4 weeks after . Patient was advised to take Xeloda daily for 5 days per week during radiation therapy. His Xeloda daily the days of radiation only was held few days due to persistent diarrhea. He concluded his chemoradiation on 11/03/2017. The diarrhea resolved at that time. Mr. Khan has been advised to pursue adjuvant chemotherapy with FOLFOX. had a long discussion regarding the role of adjuvant chemotherapy. he agreed to get Port-A-Cath placement but then at the last minute he changed his mind. Since that time though, he has agreed to pursue the recommended adjuvant chemotherapy. He completed 2 cycles of modified FOLFOX as of 03/04/2018. At his 03/16/2018 appointment, he stated had been having increased abdominal pain and decreased energy. He stated that he did not complete the full 2 days of the fluorouracil pump last one and this he felt like it was making me feel pretty bad . CT scan of the abdomen was done on on 03/19/2018 show stable rectosigmoid anastomosis with no recurrent or adjacent adenopathy. Moderate diffuse constipation. At the patient's request and and his refusal to continue with 5-FU infusion, it was opted to change the chemotherapy plan of care to XELOX on 03/23/2018 and with the plan to give him 6 cycles. Mr. Khan is tolerated it well at this time. 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 He completed 5/6 cycles. At his request, Adjuvant chemotherapy with Xelox concluded on 07/05/2018. CT scan of abdomen pelvis done on 09/23/2018 showed no acute findings but 1.3 cm nodule in the right lower lobe of the lung. CT PET scan done on 11/06/2018 showed enlarged prostate with diffusely increase uptake Malignant appearing right lung nodules, most likely from colonic carcinoma Malignant mediastinal lymph nodes, most likely from colonic carcinoma No evidence for local prostate metastatic nodes. Normal activity at rectal anastomosis. Mr Khan had followup in August [address] Esquivel, cylinder tester. A bronchoscopy was obtained and Mr Khan was diagnosed with sarcoidosis. This was treated with some success but follow-up CT scan of chest done on August 30, 2019 showed evidence of interval progression of disease with bilateral pulmonary nodules. The largest nodule in the right lower lobe posteriorly and right suprahilar with narrowing of right upper lobe bronchus and numerous additional new and progressive pulmonary nodules throughout both lungs right hilar lymphadenopathy. The patient underwent bronchoscopy and endobronchial ultrasound-guided transbronchial needle aspiration of station 11 R, showed significant macrophages and histiocytes but no malignancy. but there was a concern about possibility of malignancy so patient underwent second bronchoscopy on October 28, 2019 which showed a fungating mass was seen at the orifice of right upper lobe bronchus with complete occlusion of airways. The right middle lobe and right lower lobe bronchi were examined up to third subsegmental with no abnormality. Biopsy was obtained came back positive for metastatic colorectal adenocarcinoma as immunohistochemistry stain were positive for CK20 and CDX2. Mr Khan was started on systemic chemotherapy with a Avastin/FOLFIRI on November 16, 2019. He has tolerated it well thus far. [facility] sequencing was ordered and report came back on December 19, 2019 showed HER-2/peggy negative and says it was not possible to calculate tumor mutational burden and MSI/MMR for the sample because the sequencing data did not reach the minimum depth of coverage required to provide a result on these biomarkers. Follow-up PET/CT from 02/18/2020 reports pulmonary nodules seen on the prior study were improved on the 02/18/2020 study. The index nodule in the right lower lobe that previously measured 2.7 x 1.8 cm with an SUV of 5.5 now measures 1.4 cm with an SUV of 3.2. The other right upper and left lung nodules are similarly improved. Increasing activity is present in the multiple FDG positive mediastinal nodes; as before, these are most consistent with sarcoidosis. These nodules are distributed in the right paratracheal, inferior right perihilar, subcarinal, prevascular and right hilar territories. The previously described right. Rectal node is unchanged in size but has an SUV of 4.2 up from 2.3 previously and consistent with recurrence. Rectal activity is prominent but is most likely physiologic. Mr. Khan is here today for follow-up. He is due to for cycle 8 FOLFIRI/Avastin. His last treatment was on 02/27/2020. As treatment has been on hold due to elevated blood pressure his blood pressure has been 195/110 last visit and is 189/104 today despite increasing his lisinopril to 10 mg daily. His blood counts have been good. However he reports significant headache. He states the headache is there daily. He states that he is not sure if it is that his blood pressure or if something else is going on. He denies any vision changes. He has had appetite that kind of comes and goes. He has had some significant nausea off and on. He states that is somewhat better today but is not gone. He can take nausea medicine and can somewhat control that. He denies any emesis. He denies diarrhea or constipation. He denies any new pain other than severe headache. He states he has not had any one-sided weakness or blurred vision or slurred speech that he is aware of. He states his energy is just gone . He states he cannot get any work done and is just washed out. His ECOG is 2. Past Medical History: Chronic obstructive pulmonary disease Gastroesophageal reflux Past Surgical History: Port placement - dr. allen TRUSP / biopsy in 2018 Appendectomy in 2017 Cholecystectomy in 2016 Liver wedge biopsy in 2017 Hernia repair in 2009 Allergies: No Known Allergies. Medications: Ibuprofen 3 Tablet (of 200 mg) Oral daily PRN Lisinopril 1 Tablet (of 10 mg) Oral daily PriLOSEC Capsule Delayed Release Oral daily Family History: Mr. Khan's mother at age 62: diabetes, and heart attack, and pneumonia. Mr. Khan's father at age 74: Colon Cancer. Mr. Khan has 1 brother who is alive: heart disease. Social History: Mr. Khan is and he is retired. He is a daily smoker who has smoked 1.0 pack/day for 31 years. He has no history of drinking. Review Of Symptoms: Constitutional Denies fevers, chills, night sweats, excessive fatigue or weight loss. States he is still having headaches everyday-some days worse than others. Appetite is ok . Allergic/Immunologic No reactions. Eyes Denies significant visual changes. No diplopia. No amaurosis. Occasional blurry vision but not new. ENMT Denies changes in hearing (extremely heard of hearing-unchanged), sore throat, mouth sores, difficulty or changes in swallowing ability, and/or sinus drainage. Hematologic/Lymphatic Denies easy bruising or bleeding. The patient denies any tender or palpable lymph nodes. Respiratory He states he feels that his shortness of breath is a little worse but denies chest pain, cough or hemoptysis. Denies orthopnea. Cardiovascular Denies anginal chest pain, palpitations or orthopnea. Gastrointestinal Denies vomiting, GI bleeding, or constipation. Denies change in bowel habits and/or stool color, no heartburn or early satiety. He states he does have some nausea . He does seem to think it is worse with the headaches. Genitourinary (M) Denies hematuria, dysuria, increased frequency, urgency, hesitancy or incontinence. Musculoskeletal Denies joint pain, swelling or redness. No decreased range of motion. Integumentary Denies chronic rashes, inflammation, ulcerations or skin changes. Neurologic Denies headache, blurred vision, and no areas of focal weakness or numbness. Normal gait. No sensory problems. Psychiatric Denies insomnia, depression, eliecer or mood swings. Vital Signs: Performed on Apr 03, 2020 12:05 Height - 70.00 in Weight - 187.8 lbs (LOW) BSA - 2.03 sq.m BMI - 26.95 Temperature - 97.0 F (LOW) Pulse - 87 /min Respiration - 18 /min BP - 189/104 mm(hg) (HIGH) O2 Sat - 97 % Pain - 2,2 - Ambulatory/capable of all self-care, unable to perform any work activities. Up and about more than 50% of waking hours. (ECOG) Physical Examination: Constitutional Alert, oriented, no acute distress. Skin pink, warm and dry. Hard of hearing- no worse than his last visit but is severe. Head Normocephalic; atraumatic. Eyes Conjunctivae and sclerae are clear and without icterus. Pupils are reactive and equal. ENMT Sinuses are nontender. No oral exudates, ulcers, masses, thrush or mucositis. Oropharynx clear. Tongue normal. Neck Supple without masses or thyromegaly. No jugular venous distension. Hematologic/Lymphatic No petechiae or purpura. No tender or palpable lymph nodes in the cervical or supraclavicular area. Respiratory Lungs are clear to auscultation without rhonchi or wheezing. Cardiovascular Regular rate and rhythm of heart without murmurs,clicks, gallops or rubs. Abdomen Non-tender, non-distended or masses, ascites. Good bowel sounds noted in all quads. No guarding or rebound tenderness. Back/Spine Non-tender to palpation. Extremities No visible deformities, no cyanosis, clubbing or edema. Musculoskeletal No tenderness or swelling, normal range of motion without obvious weakness. Integumentary No rashes or lesions. Neurologic No sensory or motor deficits, normal cerebellar function, normal gait. Psychiatric Alert and oriented times three. Coherent speech. Verbalizes understanding of our discussions today. Laboratory:Test performed on Apr 03, 2020 10:48 Ua Color Yellow Ua Appearance Clear Ua Glucose Norm Ua Bilirubin Neg Ua Ketones Negative Ua Specific [place] 1.015 Ua Blood Neg Ua pH 5 Ua Protein Neg Ua Nitrites Negative Ua Leukocyte Esterase Negative Test performed on Apr 03, 2020 10:34 Sodium 138 mmol/L Potassium 3.8 mmol/L Chloride 102 mmol/L CO2 27 mmol/L Anion Gap 12.8 BUN 11 mg/dL Creatinine 0.7 mg/dL Cr Clearance (Est) 119.3400 mL/min Glucose 121 mg/dL Osmolality - Calculated 287 mOsm/kg Calcium 9.2 mg/dL Protein, Total 6.8 g/dL Albumin 3.9 g/dL Globulin 2.9 g/dL Bilirubin, Total 0.3 mg/dL ALT (SGPT) 14 U/L AST (SGOT) 15 U/L Alkaline Phosphatase 121 IU/L WBC 8.0 10 3/uL RBC 5.31 10 6/uL HGB 13.9 g/dL HCT 42.9 % MCV 80.8 fL MCH 26.2 pg MCHC 32.4 g/dL RDW 15.4 % Platelet Count 292 10 3/cmm MPV 8.9 fL Neutrophils 5.50 10 3/uL Lymphocytes 1.5 10 3/uL Monocytes 0.6 10 3/uL Eosinophils 0.3 10 3/uL Basophils 0.1 10 3/uL Neutrophil % 69.1 % Lymphocyte % 18.3 % Monocyte % 7.3 % Eosinophil % 3.9 % Basophils % 1.3 % NRBC % 0 % CEA 2.9 ng/mL Test performed on Jan 11, 2020 00:00 Manual Diff Cancelled via OM: Cancelled in Connected System Impression: Invasive adenocarcinoma of upper rectum status post APR on 03/05/2017 final pathology showed tumor size 5.5 x 5.4 cm low-grade, tumor invades perirectal adipose p T3, lymphovascular invasion present, no perineural invasion seen 1 out of 18 positive lymph nodes N1a , extranodal extension present N1 stage IIIA No loss of nuclear expression of MMR protein Elevated PSA, on 03/12/2017 it was 35.20 with prostate enlargement, being followed by Dr. Martinez. s/p chemoradiation with Xeloda as chemosensitizer. till 11/03/17 discussed with patient regarding the role of adjuvant chemotherapy in stage IIIa rectal cancer, as literature has shown adjuvant chemotherapy improves disease-free survival. Patient has been reluctant to consider chemotherapy because of severe diarrhea during chemoradiation for rectal CA. He was assured that we will adjust/modify his adjuvant chemotherapy to make it tolerable. Patient, now agreed to get port placement and for adjuvant chemotherapy modified FOLFOX every 2 weeks ???12. All the side effect and possible benefits were discussed in detail again and patient expressed understanding. Mr Khan agreed. He was referred back to Dr. Merritt for Port-A-Cath placement and began his first cycle of FOLFOX on 02/09/2018 .Patient developed abdominal pain for which he underwent CT scan of abdomen on 03/19/2018 showed moderate constipation, and stable rectosigmoid anastomosis with no recurrent mass or adjacent adenopathy and bilateral lower lobe pulmonary nodules are stable since 02/03/2017. No evidence of metastatic disease elsewhere. Following day patient had large bowel movement and since then no more abdominal pain. Patient expressed intolerance to 5-FU infusion chemotherapy and also consider it inconvenient so requesting Xeloda pills instead of 5-FU infusion. His treatment plan was changed to XELOX beginning 03/23/2018. He has tolerated it well thus far. He completed 5 of the planned [address] PET scan done on 11/06/2018 showed prostate is enlarged, measuring 6 cm in diameter with diffusely increased FDG activity, most intense in the central prostate. Normal tracer activity at the rectal anastomosis There are 2 pulmonary nodules in the right lower lobe and one in the right upper lobe, the index nodule in the right lower lobe measuring 1.1 x 1.6 cm with SUV of 3.5. Most consistent with metastatic disease, likely from colonic primary. Multiple hypermetabolic mediastinal lymph nodes are present, consistent with metastatic disease, in the inferior right perihilar 1.9 cm, 5.2 SUV. Subcarinal, prevascular, right paratracheal, 1.9 cm, 6.8 SUV. Right hilar territories. Subcentimeter nodes are also noted in the superior right paratracheal region. Too small to characterize. Mr. Khan had established care with Dr. Esquivel in pulmonology. A bronchoscopy was performed and he was found to have sarcoidosis which was treated with some success however a follow-up CT of the chest done on August 29, 2019 showed interval progression of disease with bilateral pulmonary nodules with the largest nodule in the right lower lobe posteriorly. There was activity in the right suprahilar with narrowing of the right upper lobe bronchus and numerous additional new and progressive pulmonary nodules throughout both lungs. There was right hilar lymphadenopathy. He underwent another bronchoscopy and endobronchial ultrasound-guided transbronchial needle aspiration of station 11 R. This showed significant macrophages and histiocytes but no malignancy. However given his history there was concern about the possibility of malignancy therefore he underwent a second bronchoscopy on October 28, 2019. This did show a fungating mass at the orifice of the right upper lobe bronchus with complete occlusion of both airways. The right middle lobe and right lower lobe bronchi were examined up to a third subsegmental with no abnormality. A biopsy was obtained and did report positive for metastatic colorectal adenocarcinoma. Immunohistochemistry stains were positive for CK20 and CDX2. Mr. Khan was advised to pursue pallitave chemotherapy with FOLFOX Avastin. He began his first dose on November 16, 2019. Follow-up PET/CT from 02/18/2020 reports pulmonary nodules seen on the prior study were improved on the 02/18/2020 study. The index nodule in the right lower lobe that previously measured 2.7 x 1.8 cm with an SUV of 5.5 now measures 1.4 cm with an SUV of 3.2. The other right upper and left lung nodules are similarly improved. Increasing activity is present in the multiple FDG positive mediastinal nodes; as before, these are most consistent with sarcoidosis. These nodules are distributed in the right paratracheal, inferior right perihilar, subcarinal, prevascular and right hilar territories. The previously described right. Rectal node is unchanged in size but has an SUV of 4.2 up from 2.3 previously and consistent with recurrence. Rectal activity is prominent but is most likely physiologic. He has completed 7 cycles of FOLFIRI/Avastin. His last treatment was on 02/27/2020. His treatment has been on hold due to hypertension and severe headaches and nausea. Plan: 1. Metastatic rectal carcinoma: Currently receiving FOLFIRI/Avastin. A. I am holding his planned treatment today due to hypertension. He has a blood pressure today of 189/105. He has recently increased his lisinopril to 10 mg daily. B. We will increase his lisinopril to 20 mg daily and add Norvasc 5 mg dailly. C. He has report of increasing headaches which may be due to the blood pressure, however I am concerned as he is also reporting nausea and increased hard of hearing over his last 2-3 visits. I will request an MRI of the head in this patient with metastatic rectal cancer with persistent headaches and nausea as well as declining performance status. D. Today's labs reviewed in detail and discussed with Mr. Khan and a copy was given to him. WBC 8.0, hemoglobin 13 0.9 platelets are 92,000 ANC is 5500. Potassium 3.8 random glucose 121 creatinine 0.7 LFTs are normal CEA is 2.9. UA was negative for protein. E. We will plan to obtain the MRI of the head with and without contrast and have him follow-up with after the MRI of the brain. I did not request repeat labs as he will not have any treatment in the interim. F. Mr Khan wasencouraged to contact us in the interim should questions or problems arise. G. I did give him a written prescription for hydrocodone APAP 08/06/2024 1 or 2 every 4-6 hours as needed pain not to exceed 8 a day #40. He states he is primarily taking the hydrocodone for his headaches and chronic back pain. Signed By: Arabella Galvez-, AOCNP Paula Singh MD <<Signature on File>>
== END 2020-04-05 23:59 | disposition home or self-care (01) ==
LOC: ONCMED 05:23
PROVIDERS: Internal Medicine Hematology & Oncology; PCP Nurse Practitioner; Visit Provider Nurse Practitioner
DX: C19 Malignant neoplasm of rectosigmoid junction (principal); C61 Malignant neoplasm of prostate; C78.01 Secondary malignant neoplasm of right lung; R97.20 Elevated prostate specific antigen [PSA]; K62.4 Stenosis of anus and rectum; Z79.899 Other long term (current) drug therapy
CPT/HCPCS: 36415; 36593; 80053; 81003; 82378; 85025; 96374; 99214; J2997

== ENCOUNTER 2020-04-05 08:00 | Outpatient (CLI) | payer MEDICARE, MEDICAID, SELFPAY ==
--- NOTE | 2020-04-05 08:05 | MR_ITS ---
WS: [id number] MRI HEAD WITH CONTRAST TECHNIQUE: Sagittal T1, T2 axial, T2 axial FLAIR, axial susceptibility weighted imaging, axial diffus ion weighted images, and coronal T2 images were obtained. Pre and post-T1 axial and post T1 coronal i mages. ADC and FSPGR images. CLINICAL INFORMATION: PERSISTENT HEADACHE;METASTATIC COLON CANCER COMPARISON: None. FINDINGS: No evidence of restricted diffusion to suggest acute ischemia. Ventricular system and basal cisterns are patent. Mild small vessel changes. Moderate parenchymal volume loss. Normal posterior fossa. Norm al vascular flow voids at the skull base. No extra-axial fluid collections. No evidence of mass or ma ss effect. Paranasal sinuses and mastoid air cells are well aerated. Normal optic chiasm and pituitar y infundibulum. Moderate symmetric atrophy involving the temporal lobes and hippocampal formations. N o hemosiderin on the susceptibility weighted images. No abnormal gadolinium enhancement. Normal visualized dural venous sinuses. No evidence of enhancing intracranial metastatic disease. No hydrocephalus. MR/MR head wo/w con [id number] IMPRESSION: 1. No evidence of restricted diffusion to suggest acute ischemia. 2. Mild small vessel changes. Moderate parenchymal volume loss. 3. No abnormal intracranial enhancement. No evidence of enhancing intracranial metastatic disease. 4. No hemosiderin on susceptibly weighted images.
== END 2020-04-05 08:01 | disposition home or self-care (01) ==
LOC: RADSHAW 08:02
PROVIDERS: PCP Nurse Practitioner; Visit Provider Nurse Practitioner
DX: R51.9 Headache, unspecified (principal); C19 Malignant neoplasm of rectosigmoid junction
CPT/HCPCS: 70553; A9579

== ENCOUNTER 2020-05-02 05:35 | Outpatient (RCR) | payer MEDICARE, MEDICAID, SELFPAY ==
--- NOTE | 2020-04-13 12:44 | ONC FU_ITS ---
follow up note Patient: Oswaldo Khan Unit #: [id number]: 1945 Dicatated By: Paula Singh M.D.Date of Visit:Apr 13, 2020 Onc Med Follow-up/Prog Note History of Present Illness: Mr Faye is a 74-year-old gentleman with history of abdominal pain and rectal bleed underwent colonoscopy and was found to have a rectal mass. A biopsy was obtained and it confirmed adenocarcinoma. Mr Khan then underwent low anterior resection on 03/05/2017. The final pathology report showed invasive adenocarcinoma , tumor invades perirectal adipose and 1 out of 18 lymph nodes was positive with extranodal extension and no loss of nuclear expression of MMR protein . Mr Khan also has history of elevated PSA. On 03/12/2017 his PSA was 35.20. As per patient he has seen Dr. Sunil Martinez , urologist, who is following him and CT scan of abdomen pelvis done on 03/19/2017 showed some prominent retroperitoneal lymph nodes somewhat more prominent than in 2013 Mr Khan took combined chemoradiation for 3 days the first week but then accidentally pulled his [place] cath and sustained urethral injury. He was evaluated by Dr. Martinez and underwent cystoscopy exam and reinsertion of [place] cath, during this time combined chemoradiation therapy was on hold. He resumed 4 weeks after . Patient was advised to take Xeloda daily for 5 days per week during radiation therapy. His Xeloda daily the days of radiation only was held few days due to persistent diarrhea. He concluded his chemoradiation on 11/03/2017. The diarrhea resolved at that time. Mr. Khan has been advised to pursue adjuvant chemotherapy with FOLFOX. had a long discussion regarding the role of adjuvant chemotherapy. he agreed to get Port-A-Cath placement but then at the last minute he changed his mind. Since that time though, he has agreed to pursue the recommended adjuvant chemotherapy. He completed 2 cycles of modified FOLFOX as of 03/04/2018. At his 03/16/2018 appointment, he stated had been having increased abdominal pain and decreased energy. He stated that he did not complete the full 2 days of the fluorouracil pump last one and this he felt like it was making me feel pretty bad . CT scan of the abdomen was done on on 03/19/2018 show stable rectosigmoid anastomosis with no recurrent or adjacent adenopathy. Moderate diffuse constipation. At the patient's request and and his refusal to continue with 5-FU infusion, it was opted to change the chemotherapy plan of care to XELOX on 03/23/2018 and with the plan to give him 6 cycles. Mr. Khan is tolerated it well at this time. 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 He completed 5/6 cycles. At his request, Adjuvant chemotherapy with Xelox concluded on 07/05/2018. CT scan of abdomen pelvis done on 09/23/2018 showed no acute findings but 1.3 cm nodule in the right lower lobe of the lung. CT PET scan done on 11/06/2018 showed enlarged prostate with diffusely increase uptake Malignant appearing right lung nodules, most likely from colonic carcinoma Malignant mediastinal lymph nodes, most likely from colonic carcinoma No evidence for local prostate metastatic nodes. Normal activity at rectal anastomosis. Mr Khan had followup in August [address] Esquivel, market investigator. A bronchoscopy was obtained and Mr Khan was diagnosed with sarcoidosis. This was treated with some success but follow-up CT scan of chest done on August 30, 2019 showed evidence of interval progression of disease with bilateral pulmonary nodules. The largest nodule in the right lower lobe posteriorly and right suprahilar with narrowing of right upper lobe bronchus and numerous additional new and progressive pulmonary nodules throughout both lungs right hilar lymphadenopathy. The patient underwent bronchoscopy and endobronchial ultrasound-guided transbronchial needle aspiration of station 11 R, showed significant macrophages and histiocytes but no malignancy. but there was a concern about possibility of malignancy so patient underwent second bronchoscopy on October 28, 2019 which showed a fungating mass was seen at the orifice of right upper lobe bronchus with complete occlusion of airways. The right middle lobe and right lower lobe bronchi were examined up to third subsegmental with no abnormality. Biopsy was obtained came back positive for metastatic colorectal adenocarcinoma as immunohistochemistry stain were positive for CK20 and CDX2. Mr Khan was started on systemic chemotherapy with a Avastin/FOLFIRI on November 16, 2019. He has tolerated it well thus far. [facility] sequencing was ordered and report came back on December 19, 2019 showed HER-2/peggy negative and says it was not possible to calculate tumor mutational burden and MSI/MMR for the sample because the sequencing data did not reach the minimum depth of coverage required to provide a result on these biomarkers. Follow-up PET/CT from 02/18/2020 reports pulmonary nodules seen on the prior study were improved on the 02/18/2020 study. The index nodule in the right lower lobe that previously measured 2.7 x 1.8 cm with an SUV of 5.5 now measures 1.4 cm with an SUV of 3.2. The other right upper and left lung nodules are similarly improved. Increasing activity is present in the multiple FDG positive mediastinal nodes; as before, these are most consistent with sarcoidosis. These nodules are distributed in the right paratracheal, inferior right perihilar, subcarinal, prevascular and right hilar territories. The previously described right. Rectal node is unchanged in size but has an SUV of 4.2 up from 2.3 previously and consistent with recurrence. Rectal activity is prominent but is most likely physiologic. His last treatment was on 02/27/2020. As treatment has been on hold due to elevated blood pressure his blood pressure has been 195/110 last visit and is 189/104 today despite increasing his lisinopril to 10 mg daily.Continued with amlodipine 5 mg p.o. daily And was also complaining of headaches so MRI scan of the brain was ordered to rule out brain mets which was done on April 03, 2020 showed no evidence of metastatic disease to brain and no other acute abnormality seen Came for follow-up, denies any specific complaints, no fever chills, no nausea or vomiting no diarrhea constipation, patient said his headaches are gone blood pressure has also improved. And now ready to resume systemic chemotherapy. Medications: Ibuprofen 3 Tablet (of 200 mg) Oral daily PRN, Lisinopril 1 Tablet (of 10 mg) Oral daily, PriLOSEC Capsule Delayed Release Oral daily Allergies: No Known Allergies. Review of Systems: Constitutional - His energy level is fair. Appetite is good and weight is stable. No fever, chills, hot flashes, or night sweats, ENMT - He has sinus congestion/drainage. No mouth sores. No sore throat or difficulty swallowing, Hematologic/Lymphatic - No abnormal bruising or bleeding, Respiratory - He has shortness of breath with activity. He still has cough. No pleuritic pain or hemoptysis, Cardiovascular - No angina pain. No palpitations, Gastrointestinal - No nausea or vomiting. No heartburn or acid reflux. No diarrhea and constipation. No blood in the stool or black stools, Genitourinary (M) - No dysuria or hematuria. He has urinary frequency. No urgency or incontinence, Musculoskeletal - No joint or bone pain, Integumentary - No skin ulcers or open wounds. Denies any rash or skin lesions, Neurologic - Positive for headache and dizziness. No numbness/paresthesias or other focal neurologic symptoms, Psychiatric - No anxiety or depression. No insomnia. Vital Signs: Performed on Apr 13, 2020 09:04 Height - 70.00 in Weight - 186.8 lbs (LOW) BSA - 2.03 sq.m BMI - 26.80 Temperature - 97.4 F (LOW) Pulse - 101 /min (HIGH) Respiration - 18 /min BP - 149/89 mm(hg) (HIGH) O2 Sat - 93 % (LOW) Pain - 0 Performance Status: 1 - No physically strenuous activity, but ambulatory and able to carry out light or sedentary work (e.g. office work, light house work). (ECOG) Physical Examination: ENMT - No mouth sores, no thrush, no jaundice, Respiratory - Lungs are clear to auscultation, Cardiovascular - Regular rate and rhythm of heart, Abdomen - Soft, bowel sounds present, Extremities - No visible edema. Lab/Imaging: Test performed on Apr 03, 2020 10:48 Ua Color Yellow Ua Appearance Clear Ua Glucose Norm Ua Bilirubin Neg Ua Ketones Negative Ua Specific [place] 1.015 Ua Blood Neg Ua pH 5 Ua Protein Neg Ua Nitrites Negative Ua Leukocyte Esterase Negative Test performed on Apr 03, 2020 10:34 Sodium 138 mmol/L Potassium 3.8 mmol/L Chloride 102 mmol/L CO2 27 mmol/L Anion Gap 12.8 BUN 11 mg/dL Creatinine 0.7 mg/dL Cr Clearance (Est) 119.3400 mL/min Glucose 121 mg/dL Osmolality - Calculated 287 mOsm/kg Calcium 9.2 mg/dL Protein, Total 6.8 g/dL Albumin 3.9 g/dL Globulin 2.9 g/dL Bilirubin, Total 0.3 mg/dL ALT (SGPT) 14 U/L AST (SGOT) 15 U/L Alkaline Phosphatase 121 IU/L WBC 8.0 10 3/uL RBC 5.31 10 6/uL HGB 13.9 g/dL HCT 42.9 % MCV 80.8 fL MCH 26.2 pg MCHC 32.4 g/dL RDW 15.4 % Platelet Count 292 10 3/cmm MPV 8.9 fL Neutrophils 5.50 10 3/uL Lymphocytes 1.5 10 3/uL Monocytes 0.6 10 3/uL Eosinophils 0.3 10 3/uL Basophils 0.1 10 3/uL Neutrophil % 69.1 % Lymphocyte % 18.3 % Monocyte % 7.3 % Eosinophil % 3.9 % Basophils % 1.3 % NRBC % 0 % CEA 2.9 ng/mL Test performed on Jan 11, 2020 00:00 Manual Diff Cancelled via OM: Cancelled in Connected System Impression: Invasive adenocarcinoma of upper rectum status post APR on 03/05/2017 final pathology showed tumor size 5.5 x 5.4 cm low-grade, tumor invades perirectal adipose p T3, lymphovascular invasion present, no perineural invasion seen 1 out of 18 positive lymph nodes N1a , extranodal extension present N1 stage IIIA No loss of nuclear expression of MMR protein Elevated PSA, on 03/12/2017 it was 35.20 with prostate enlargement, being followed by Dr. Martinez. s/p chemoradiation with Xeloda as chemosensitizer. till 11/03/17 discussed with patient regarding the role of adjuvant chemotherapy in stage IIIa rectal cancer, as literature has shown adjuvant chemotherapy improves disease-free survival. Patient has been reluctant to consider chemotherapy because of severe diarrhea during chemoradiation for rectal CA. He was assured that we will adjust/modify his adjuvant chemotherapy to make it tolerable. Patient, now agreed to get port placement and for adjuvant chemotherapy modified FOLFOX every 2 weeks ???12. All the side effect and possible benefits were discussed in detail again and patient expressed understanding. Mr Khan agreed. He was referred back to Dr. Merritt for Port-A-Cath placement and began his first cycle of FOLFOX on 02/09/2018 .Patient developed abdominal pain for which he underwent CT scan of abdomen on 03/19/2018 showed moderate constipation, and stable rectosigmoid anastomosis with no recurrent mass or adjacent adenopathy and bilateral lower lobe pulmonary nodules are stable since 02/03/2017. No evidence of metastatic disease elsewhere. Following day patient had large bowel movement and since then no more abdominal pain. Patient expressed intolerance to 5-FU infusion chemotherapy and also consider it inconvenient so requesting Xeloda pills instead of 5-FU infusion. His treatment plan was changed to XELOX beginning 03/23/2018. He has tolerated it well thus far. He completed 5 of the planned [address] PET scan done on 11/06/2018 showed prostate is enlarged, measuring 6 cm in diameter with diffusely increased FDG activity, most intense in the central prostate. Normal tracer activity at the rectal anastomosis There are 2 pulmonary nodules in the right lower lobe and one in the right upper lobe, the index nodule in the right lower lobe measuring 1.1 x 1.6 cm with SUV of 3.5. Most consistent with metastatic disease, likely from colonic primary. Multiple hypermetabolic mediastinal lymph nodes are present, consistent with metastatic disease, in the inferior right perihilar 1.9 cm, 5.2 SUV. Subcarinal, prevascular, right paratracheal, 1.9 cm, 6.8 SUV. Right hilar territories. Subcentimeter nodes are also noted in the superior right paratracheal region. Too small to characterize. Mr. Khan had established care with Dr. Esquivel in pulmonology. A bronchoscopy was performed and he was found to have sarcoidosis which was treated with some success however a follow-up CT of the chest done on August 29, 2019 showed interval progression of disease with bilateral pulmonary nodules with the largest nodule in the right lower lobe posteriorly. There was activity in the right suprahilar with narrowing of the right upper lobe bronchus and numerous additional new and progressive pulmonary nodules throughout both lungs. There was right hilar lymphadenopathy. He underwent another bronchoscopy and endobronchial ultrasound-guided transbronchial needle aspiration of station 11 R. This showed significant macrophages and histiocytes but no malignancy. However given his history there was concern about the possibility of malignancy therefore he underwent a second bronchoscopy on October 28, 2019. This did show a fungating mass at the orifice of the right upper lobe bronchus with complete occlusion of both airways. The right middle lobe and right lower lobe bronchi were examined up to a third subsegmental with no abnormality. A biopsy was obtained and did report positive for metastatic colorectal adenocarcinoma. Immunohistochemistry stains were positive for CK20 and CDX2. Mr. Khan was advised to pursue pallitave chemotherapy with FOLFOX Avastin. He began his first dose on November 16, 2019. Follow-up PET/CT from 02/18/2020 reports pulmonary nodules seen on the prior study were improved on the 02/18/2020 study. The index nodule in the right lower lobe that previously measured 2.7 x 1.8 cm with an SUV of 5.5 now measures 1.4 cm with an SUV of 3.2. The other right upper and left lung nodules are similarly improved. Increasing activity is present in the multiple FDG positive mediastinal nodes; as before, these are most consistent with sarcoidosis. These nodules are distributed in the right paratracheal, inferior right perihilar, subcarinal, prevascular and right hilar territories. The previously described right. Rectal node is unchanged in size but has an SUV of 4.2 up from 2.3 previously and consistent with recurrence. Rectal activity is prominent but is most likely physiologic. He has completed 7 cycles of FOLFIRI/Avastin. His last treatment was on 02/27/2020. His treatment has been on hold due to hypertension and severe headaches and nausea. Plan: Discussed with patient regarding his MRI scan of the brain which was done on April 05, 2020 showed no evidence of intracranial metastatic disease and no other acute abnormality. His blood pressure has improved on amlodipine and lisinopril, case was discussed with his primary care provider Zeus Mejia, she will follow him in [facility] while on chemotherapy/Avastin and adjust his antihypertensive medicine. Patient will return to clinic on Thursday to resume systemic therapy with FOLFIRI/Avastin. Signed By: Paula Singh M.D. <<Signature on File>>
[2020-04-26 15:36] LABS: Basophils # 0.1 10^3/uL (0.0-0.1); Basophils % 1.3 %; Eosinophils # 0.3 10^3/uL (0.0-0.8); Eosinophils % 3.6 %; Hematocrit 43.7 % (42.0-52.0); Hemoglobin 14.2 g/dL (11.7-16.6); Lymphocytes # 1.8 10^3/uL (0.8-4.8); Lymphocytes % 22.5 %; Mean Corpuscular HGB Conc 32.5 g/dL (30.0-36.0); Mean Corpuscular Hemoglobin 26.2 pg (28.0-34.0); Mean Corpuscular Volume 80.5 fL (80-94); Mean Platelet Volume 9.8 fL (7.4-10.4); Monocytes # 0.6 10^3/uL (0.2-0.9); Neutrophils # 5.15 10^3/uL (1.8-7.7); Neutrophils % 65.3 %; Nucleated Red Blood Cells % 0 %; Platelet Count 290 10^3/cmm (130-400); Red Blood Count 5.43 10^6/uL (4.1-5.3); Red Cell Distribution Width 15.1 % (12.1-15.1); White Blood Count 7.9 10^3/uL (4.0-10.0)
[2020-04-26 17:07] LABS: Alanine Aminotransferase 19 U/L (0-41); Albumin Level 3.8 g/dL (3.5-5.2); Alkaline Phosphatase 122 IU/L (40-130); Anion Gap 13.9 (5-19); Aspartate Amino Transferase 14 U/L (0-40); Blood Urea Nitrogen 15 mg/dL (8-23); Calcium 9.4 mg/dL (8.5-10.5); Carbon Dioxide 27 mmol/L (22-29); Chloride 101 mmol/L (98-107); Globulin 2.9 g/dL (1.3-4.6); Glucose 131 mg/dL (65-115); Osmolality Calculated 289 mOsm/kg (285-295); Potassium 3.9 mmol/L (3.5-5.1); Sodium 138 mmol/L (136-145); Total Bilirubin 0.3 mg/dL (0.15-1.2); Total Protein 6.7 g/dL (6.6-8.7)
--- NOTE | 2020-04-27 09:24 | ONC FU_ITS ---
follow up note Patient: Oswaldo Khan Unit #: [id number]: 1945 Dicatated By: Paula Singh M.D.Date of Visit:Apr 27, 2020 Onc Med Follow-up/Prog Note History of Present Illness: Mr Faye is a 74-year-old gentleman with history of abdominal pain and rectal bleed underwent colonoscopy and was found to have a rectal mass. A biopsy was obtained and it confirmed adenocarcinoma. Mr Khan then underwent low anterior resection on 03/05/2017. The final pathology report showed invasive adenocarcinoma , tumor invades perirectal adipose and 1 out of 18 lymph nodes was positive with extranodal extension and no loss of nuclear expression of MMR protein . Mr Khan also has history of elevated PSA. On 03/12/2017 his PSA was 35.20. As per patient he has seen Dr. Sunil Martinez , urologist, who is following him and CT scan of abdomen pelvis done on 03/19/2017 showed some prominent retroperitoneal lymph nodes somewhat more prominent than in 2013 Mr Khan took combined chemoradiation for 3 days the first week but then accidentally pulled his [place] cath and sustained urethral injury. He was evaluated by Dr. Martinez and underwent cystoscopy exam and reinsertion of [place] cath, during this time combined chemoradiation therapy was on hold. He resumed 4 weeks after . Patient was advised to take Xeloda daily for 5 days per week during radiation therapy. His Xeloda daily the days of radiation only was held few days due to persistent diarrhea. He concluded his chemoradiation on 11/03/2017. The diarrhea resolved at that time. Mr. Khan has been advised to pursue adjuvant chemotherapy with FOLFOX. had a long discussion regarding the role of adjuvant chemotherapy. he agreed to get Port-A-Cath placement but then at the last minute he changed his mind. Since that time though, he has agreed to pursue the recommended adjuvant chemotherapy. He completed 2 cycles of modified FOLFOX as of 03/04/2018. At his 03/16/2018 appointment, he stated had been having increased abdominal pain and decreased energy. He stated that he did not complete the full 2 days of the fluorouracil pump last one and this he felt like it was making me feel pretty bad . CT scan of the abdomen was done on on 03/19/2018 show stable rectosigmoid anastomosis with no recurrent or adjacent adenopathy. Moderate diffuse constipation. At the patient's request and and his refusal to continue with 5-FU infusion, it was opted to change the chemotherapy plan of care to XELOX on 03/23/2018 and with the plan to give him 6 cycles. Mr. Khan is tolerated it well at this time. 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 He completed 5/6 cycles. At his request, Adjuvant chemotherapy with Xelox concluded on 07/05/2018. CT scan of abdomen pelvis done on 09/23/2018 showed no acute findings but 1.3 cm nodule in the right lower lobe of the lung. CT PET scan done on 11/06/2018 showed enlarged prostate with diffusely increase uptake Malignant appearing right lung nodules, most likely from colonic carcinoma Malignant mediastinal lymph nodes, most likely from colonic carcinoma No evidence for local prostate metastatic nodes. Normal activity at rectal anastomosis. Mr Khan had followup in August [address] Esquivel, [employer]. A bronchoscopy was obtained and Mr Khan was diagnosed with sarcoidosis. This was treated with some success but follow-up CT scan of chest done on August 30, 2019 showed evidence of interval progression of disease with bilateral pulmonary nodules. The largest nodule in the right lower lobe posteriorly and right suprahilar with narrowing of right upper lobe bronchus and numerous additional new and progressive pulmonary nodules throughout both lungs right hilar lymphadenopathy. The patient underwent bronchoscopy and endobronchial ultrasound-guided transbronchial needle aspiration of station 11 R, showed significant macrophages and histiocytes but no malignancy. but there was a concern about possibility of malignancy so patient underwent second bronchoscopy on October 28, 2019 which showed a fungating mass was seen at the orifice of right upper lobe bronchus with complete occlusion of airways. The right middle lobe and right lower lobe bronchi were examined up to third subsegmental with no abnormality. Biopsy was obtained came back positive for metastatic colorectal adenocarcinoma as immunohistochemistry stain were positive for CK20 and CDX2. Mr Khan was started on systemic chemotherapy with a Avastin/FOLFIRI on November 16, 2019. He has tolerated it well thus far. [facility] sequencing was ordered and report came back on December 19, 2019 showed HER-2/peggy negative and says it was not possible to calculate tumor mutational burden and MSI/MMR for the sample because the sequencing data did not reach the minimum depth of coverage required to provide a result on these biomarkers. Follow-up PET/CT from 02/18/2020 reports pulmonary nodules seen on the prior study were improved on the 02/18/2020 study. The index nodule in the right lower lobe that previously measured 2.7 x 1.8 cm with an SUV of 5.5 now measures 1.4 cm with an SUV of 3.2. The other right upper and left lung nodules are similarly improved. Increasing activity is present in the multiple FDG positive mediastinal nodes; as before, these are most consistent with sarcoidosis. These nodules are distributed in the right paratracheal, inferior right perihilar, subcarinal, prevascular and right hilar territories. The previously described right. Rectal node is unchanged in size but has an SUV of 4.2 up from 2.3 previously and consistent with recurrence. Rectal activity is prominent but is most likely physiologic. His last treatment was on 02/27/2020. As treatment has been on hold due to elevated blood pressure his blood pressure has been 195/110 last visit and is 189/104 today despite increasing his lisinopril to 10 mg daily.Continued with amlodipine 5 mg p.o. daily And was also complaining of headaches so MRI scan of the brain was ordered to rule out brain mets which was done on April 03, 2020 showed no evidence of metastatic disease to brain and no other acute abnormality seen Came for follow-up, denies any specific complaint except generalized weakness and fatigue, patient is noncompliant with his chemotherapy as he has skipped many scheduled chemotherapy treatments in the last dose chemo was given on February 27, 2020, last time he was in office on April 13, 2020, at that time he was scheduled for chemotherapy on April 16, 2020 but patient did not come, said he was not feeling well so he decided on his own not to consider recommended chemotherapy. Patient said he was just feeling weak, which is a chronic problem, but no fever or chills, no nausea or vomiting, no diarrhea or constipation, no abdominal pain, no jaundice, his blood pressure has been controlled well by PMD. Medications: Ibuprofen 3 Tablet (of 200 mg) Oral daily PRN, Lisinopril 1 Tablet (of 10 mg) Oral daily, PriLOSEC Capsule Delayed Release Oral daily Allergies: No Known Allergies. Review of Systems: Constitutional - His energy level is poor. Appetite is good and weight is stable. No fever, chills, hot flashes, or night sweats, ENMT - He has sinus congestion/drainage. No mouth sores. No sore throat or difficulty swallowing, Hematologic/Lymphatic - No abnormal bruising or bleeding, Respiratory - He has shortness of breath with activity. He still has cough. No pleuritic pain or hemoptysis, Cardiovascular - No angina pain. No palpitations, Gastrointestinal - No nausea or vomiting. No heartburn or acid reflux. No diarrhea and constipation. No blood in the stool or black stools, Genitourinary (M) - No dysuria or hematuria. He has urinary frequency. No urgency or incontinence, Musculoskeletal - No joint or bone pain, Integumentary - No skin ulcers or open wounds. Denies any rash or skin lesions, Neurologic - Positive for headache and dizziness. No numbness/paresthesias or other focal neurologic symptoms, Psychiatric - No anxiety or depression. No insomnia. Vital Signs: Performed on Apr 27, 2020 08:33 Height - 70.00 in Weight - 185.4 lbs (LOW) BSA - 2.02 sq.m BMI - 26.60 Temperature - 97.1 F (LOW) Pulse - 90 /min Respiration - 18 /min BP - 138/80 mm(hg) O2 Sat - 96 % Pain - 0 Performance Status: 1 - No physically strenuous activity, but ambulatory and able to carry out light or sedentary work (e.g. office work, light house work). (ECOG) Physical Examination: ENMT - No mouth sores, no thrush, no jaundice, Respiratory - Lungs are clear to auscultation, Cardiovascular - Regular rate and rhythm of heart, Abdomen - Soft, bowel sounds present, Extremities - No visible edema or rash. Lab/Imaging: Test performed on Apr 03, 2020 10:48 Ua Color Yellow Ua Appearance Clear Ua Glucose Norm Ua Bilirubin Neg Ua Ketones Negative Ua Specific Kinta 1.015 Ua Blood Neg Ua pH 5 Ua Protein Neg Ua Nitrites Negative Ua Leukocyte Esterase Negative Test performed on Apr 03, 2020 10:34 Sodium 138 mmol/L Potassium 3.8 mmol/L Chloride 102 mmol/L CO2 27 mmol/L Anion Gap 12.8 BUN 11 mg/dL Creatinine 0.7 mg/dL Cr Clearance (Est) 119.3400 mL/min Glucose 121 mg/dL Osmolality - Calculated 287 mOsm/kg Calcium 9.2 mg/dL Protein, Total 6.8 g/dL Albumin 3.9 g/dL Globulin 2.9 g/dL Bilirubin, Total 0.3 mg/dL ALT (SGPT) 14 U/L AST (SGOT) 15 U/L Alkaline Phosphatase 121 IU/L WBC 8.0 10 3/uL RBC 5.31 10 6/uL HGB 13.9 g/dL HCT 42.9 % MCV 80.8 fL MCH 26.2 pg MCHC 32.4 g/dL RDW 15.4 % Platelet Count 292 10 3/cmm MPV 8.9 fL Neutrophils 5.50 10 3/uL Lymphocytes 1.5 10 3/uL Monocytes 0.6 10 3/uL Eosinophils 0.3 10 3/uL Basophils 0.1 10 3/uL Neutrophil % 69.1 % Lymphocyte % 18.3 % Monocyte % 7.3 % Eosinophil % 3.9 % Basophils % 1.3 % NRBC % 0 % CEA 2.9 ng/mL Test performed on Jan 11, 2020 00:00 Manual Diff Cancelled via OM: Cancelled in Connected System Impression: Invasive adenocarcinoma of upper rectum status post APR on 03/05/2017 final pathology showed tumor size 5.5 x 5.4 cm low-grade, tumor invades perirectal adipose p T3, lymphovascular invasion present, no perineural invasion seen 1 out of 18 positive lymph nodes N1a , extranodal extension present N1 stage IIIA No loss of nuclear expression of MMR protein Elevated PSA, on 03/12/2017 it was 35.20 with prostate enlargement, being followed by Dr. Martinez. s/p chemoradiation with Xeloda as chemosensitizer. till 11/03/17 discussed with patient regarding the role of adjuvant chemotherapy in stage IIIa rectal cancer, as literature has shown adjuvant chemotherapy improves disease-free survival. Patient has been reluctant to consider chemotherapy because of severe diarrhea during chemoradiation for rectal CA. He was assured that we will adjust/modify his adjuvant chemotherapy to make it tolerable. Patient, now agreed to get port placement and for adjuvant chemotherapy modified FOLFOX every 2 weeks ???12. All the side effect and possible benefits were discussed in detail again and patient expressed understanding. Mr Khan agreed. He was referred back to Dr. Merritt for Port-A-Cath placement and began his first cycle of FOLFOX on 02/09/2018 .Patient developed abdominal pain for which he underwent CT scan of abdomen on 03/19/2018 showed moderate constipation, and stable rectosigmoid anastomosis with no recurrent mass or adjacent adenopathy and bilateral lower lobe pulmonary nodules are stable since 02/03/2017. No evidence of metastatic disease elsewhere. Following day patient had large bowel movement and since then no more abdominal pain. Patient expressed intolerance to 5-FU infusion chemotherapy and also consider it inconvenient so requesting Xeloda pills instead of 5-FU infusion. His treatment plan was changed to XELOX beginning 03/23/2018. He has tolerated it well thus far. He completed 5 of the planned [address] PET scan done on 11/06/2018 showed prostate is enlarged, measuring 6 cm in diameter with diffusely increased FDG activity, most intense in the central prostate. Normal tracer activity at the rectal anastomosis There are 2 pulmonary nodules in the right lower lobe and one in the right upper lobe, the index nodule in the right lower lobe measuring 1.1 x 1.6 cm with SUV of 3.5. Most consistent with metastatic disease, likely from colonic primary. Multiple hypermetabolic mediastinal lymph nodes are present, consistent with metastatic disease, in the inferior right perihilar 1.9 cm, 5.2 SUV. Subcarinal, prevascular, right paratracheal, 1.9 cm, 6.8 SUV. Right hilar territories. Subcentimeter nodes are also noted in the superior right paratracheal region. Too small to characterize. Mr. Khan had established care with Dr. Esquivel in pulmonology. A bronchoscopy was performed and he was found to have sarcoidosis which was treated with some success however a follow-up CT of the chest done on August 29, 2019 showed interval progression of disease with bilateral pulmonary nodules with the largest nodule in the right lower lobe posteriorly. There was activity in the right suprahilar with narrowing of the right upper lobe bronchus and numerous additional new and progressive pulmonary nodules throughout both lungs. There was right hilar lymphadenopathy. He underwent another bronchoscopy and endobronchial ultrasound-guided transbronchial needle aspiration of station 11 R. This showed significant macrophages and histiocytes but no malignancy. However given his history there was concern about the possibility of malignancy therefore he underwent a second bronchoscopy on October 28, 2019. This did show a fungating mass at the orifice of the right upper lobe bronchus with complete occlusion of both airways. The right middle lobe and right lower lobe bronchi were examined up to a third subsegmental with no abnormality. A biopsy was obtained and did report positive for metastatic colorectal adenocarcinoma. Immunohistochemistry stains were positive for CK20 and CDX2. Mr. Khan was advised to pursue pallitave chemotherapy with FOLFOX Avastin. He began his first dose on November 16, 2019. Follow-up PET/CT from 02/18/2020 reports pulmonary nodules seen on the prior study were improved on the 02/18/2020 study. The index nodule in the right lower lobe that previously measured 2.7 x 1.8 cm with an SUV of 5.5 now measures 1.4 cm with an SUV of 3.2. The other right upper and left lung nodules are similarly improved. Increasing activity is present in the multiple FDG positive mediastinal nodes; as before, these are most consistent with sarcoidosis. These nodules are distributed in the right paratracheal, inferior right perihilar, subcarinal, prevascular and right hilar territories. The previously described right. Rectal node is unchanged in size but has an SUV of 4.2 up from 2.3 previously and consistent with recurrence. Rectal activity is prominent but is most likely physiologic. He has completed 7 cycles of FOLFIRI/Avastin. His last treatment was on 02/27/2020. His treatment has been on hold due to hypertension and severe headaches and nausea.And his hypertension being managed by PMD Plan: Discussed with patient regarding his labs white blood count 7.9 hemoglobin 14.2 hematocrit 43.7 platelets 290,000 CMP within normal limits Clinically, patient is doing reasonably well with no new signs symptom suggestive of disease progression. Tolerating FOLFIRI/Avastin well but patient is noncompliant with his chemotherapy as well as other medications and other appointment specifically with urology as patient has history of elevated PSA, in the past, he was seen by Dr. Martinez, since then no more follow-ups with urology regarding elevated PSA level as per patient , in the past, he did not keep his appointment with urology, now he said, he would call and make an appointment and said he is not interested in seeing too many doctors. Discussed with patient in detail regarding the importance of maintaining chemotherapy schedule especially in the metastatic setting, patient expressed full understanding regarding pros and cons of being noncompliant, now agreed to resume palliative systemic chemotherapy and will return to clinic on coming Thursday. Patient was also advised to be compliant with his antihypertensive medicine and follow-up with PMD closely especially when he is on chemotherapy/Avastin.We will also check his PSA level today and call Dr. Martinez's office for follow-up appointment And patient was advised to follow with urology diligently Patient will return to clinic on Thursday to resume systemic therapy with FOLFIRI/Avastin. Signed By: Paula Singh M.D. <<Signature on File>>
[2020-04-30] MEDS: alteplase 1 mg/mL SDV 2 mL 2 MG IV ×2 (13:16→14:16)
[2020-04-30] MEDS: palonosetron 0.25 mg/5 mL SDV IVP (14:34)
[2020-04-30] MEDS: sodium chloride 0.9% 250 ML 75 ML IV (14:34)
[2020-04-30] MEDS: atropine 1 mg/mL SDV 1 mL 0.4 MG IV (14:34)
== END 2020-05-06 23:59 | disposition home or self-care (01) ==
LOC: ONCMED 05:35
PROVIDERS: Internal Medicine Hematology & Oncology; PCP Nurse Practitioner; Visit Provider Nurse Practitioner
DX: Z51.11 Encounter for antineoplastic chemotherapy (principal); C19 Malignant neoplasm of rectosigmoid junction; C61 Malignant neoplasm of prostate; C78.01 Secondary malignant neoplasm of right lung; K59.00 Constipation, unspecified; K63.89 Other specified diseases of intestine; R91.1 Solitary pulmonary nodule; Z79.899 Other long term (current) drug therapy
CPT/HCPCS: 36415; 36593; 80053; 85025; 96367; 96368; 96375; 96413; 96415; 96416; 96417; 96523; 99214; J0461; J0640; J1100; J2469; J2997; J7050; J9035; J9190; J9206

== ENCOUNTER 2020-05-30 05:34 | Outpatient (RCR) | payer MEDICARE, MEDICAID, SELFPAY ==
[2020-05-14 08:46] LABS: Basophils # 0.1 10^3/uL (0.0-0.1); Basophils % 0.9 %; Eosinophils # 0.2 10^3/uL (0.0-0.8); Eosinophils % 2.9 %; Hematocrit 39.6 % (42.0-52.0); Hemoglobin 12.9 g/dL (11.7-16.6); Lymphocytes # 1.4 10^3/uL (0.8-4.8); Lymphocytes % 17.7 %; Mean Corpuscular HGB Conc 32.6 g/dL (30.0-36.0); Mean Corpuscular Hemoglobin 26.4 pg (28.0-34.0); Mean Platelet Volume 9.3 fL (7.4-10.4); Monocytes # 0.6 10^3/uL (0.2-0.9); Monocytes % 7.4 %; Neutrophils # 5.68 10^3/uL (1.8-7.7); Neutrophils % 70.7 %; Nucleated Red Blood Cells % 0 %; Platelet Count 300 10^3/cmm (130-400); Red Blood Count 4.89 10^6/uL (4.1-5.3); Red Cell Distribution Width 15.5 % (12.1-15.1)
[2020-05-14] MEDS: alteplase 1 mg/mL SDV 2 mL 2 MG IV (09:05)
[2020-05-14 09:39] LABS: Alanine Aminotransferase 13 U/L (0-41); Albumin Level 3.8 g/dL (3.5-5.2); Alkaline Phosphatase 110 IU/L (40-130); Anion Gap 13.2 (5-19); Aspartate Amino Transferase 12 U/L (0-40); Blood Urea Nitrogen 16 mg/dL (8-23); Calcium 9.2 mg/dL (8.5-10.5); Carbon Dioxide 24 mmol/L (22-29); Chloride 103 mmol/L (98-107); Glucose 134 mg/dL (65-115); Osmolality Calculated 287 mOsm/kg (285-295); Potassium 3.2 mmol/L (3.5-5.1); Sodium 137 mmol/L (136-145); Total Bilirubin 0.3 mg/dL (0.15-1.2); Total Protein 6.8 g/dL (6.6-8.7)
--- NOTE | 2020-05-14 10:34 | ONC FU_ITS ---
follow up note Patient: Oswaldo Khan Unit #: [id number]: 1945 Dicatated By: Paula Singh M.D.Date of Visit:May 14, 2020 Onc Med Follow-up/Prog Note History of Present Illness: Mr Faye is a 74-year-old gentleman with history of abdominal pain and rectal bleed underwent colonoscopy and was found to have a rectal mass. A biopsy was obtained and it confirmed adenocarcinoma. Mr Khan then underwent low anterior resection on 03/05/2017. The final pathology report showed invasive adenocarcinoma , tumor invades perirectal adipose and 1 out of 18 lymph nodes was positive with extranodal extension and no loss of nuclear expression of MMR protein . Mr Khan also has history of elevated PSA. On 03/12/2017 his PSA was 35.20. As per patient he has seen Dr. Sunil Martinez , urologist, who is following him and CT scan of abdomen pelvis done on 03/19/2017 showed some prominent retroperitoneal lymph nodes somewhat more prominent than in 2013 Mr Khan took combined chemoradiation for 3 days the first week but then accidentally pulled his [place] cath and sustained urethral injury. He was evaluated by Dr. Martinez and underwent cystoscopy exam and reinsertion of [place] cath, during this time combined chemoradiation therapy was on hold. He resumed 4 weeks after . Patient was advised to take Xeloda daily for 5 days per week during radiation therapy. His Xeloda daily the days of radiation only was held few days due to persistent diarrhea. He concluded his chemoradiation on 11/03/2017. The diarrhea resolved at that time. Mr. Khan has been advised to pursue adjuvant chemotherapy with FOLFOX. had a long discussion regarding the role of adjuvant chemotherapy. he agreed to get Port-A-Cath placement but then at the last minute he changed his mind. Since that time though, he has agreed to pursue the recommended adjuvant chemotherapy. He completed 2 cycles of modified FOLFOX as of 03/04/2018. At his 03/16/2018 appointment, he stated had been having increased abdominal pain and decreased energy. He stated that he did not complete the full 2 days of the fluorouracil pump last one and this he felt like it was making me feel pretty bad . CT scan of the abdomen was done on on 03/19/2018 show stable rectosigmoid anastomosis with no recurrent or adjacent adenopathy. Moderate diffuse constipation. At the patient's request and and his refusal to continue with 5-FU infusion, it was opted to change the chemotherapy plan of care to XELOX on 03/23/2018 and with the plan to give him 6 cycles. Mr. Khan is tolerated it well at this time. 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 He completed 5/6 cycles. At his request, Adjuvant chemotherapy with Xelox concluded on 07/05/2018. CT scan of abdomen pelvis done on 09/23/2018 showed no acute findings but 1.3 cm nodule in the right lower lobe of the lung. CT PET scan done on 11/06/2018 showed enlarged prostate with diffusely increase uptake Malignant appearing right lung nodules, most likely from colonic carcinoma Malignant mediastinal lymph nodes, most likely from colonic carcinoma No evidence for local prostate metastatic nodes. Normal activity at rectal anastomosis. Mr Khan had followup in August [address] Esquivel, hotel concierge. A bronchoscopy was obtained and Mr Khan was diagnosed with sarcoidosis. This was treated with some success but follow-up CT scan of chest done on August 30, 2019 showed evidence of interval progression of disease with bilateral pulmonary nodules. The largest nodule in the right lower lobe posteriorly and right suprahilar with narrowing of right upper lobe bronchus and numerous additional new and progressive pulmonary nodules throughout both lungs right hilar lymphadenopathy. The patient underwent bronchoscopy and endobronchial ultrasound-guided transbronchial needle aspiration of station 11 R, showed significant macrophages and histiocytes but no malignancy. but there was a concern about possibility of malignancy so patient underwent second bronchoscopy on October 28, 2019 which showed a fungating mass was seen at the orifice of right upper lobe bronchus with complete occlusion of airways. The right middle lobe and right lower lobe bronchi were examined up to third subsegmental with no abnormality. Biopsy was obtained came back positive for metastatic colorectal adenocarcinoma as immunohistochemistry stain were positive for CK20 and CDX2. Mr Khan was started on systemic chemotherapy with a Avastin/FOLFIRI on November 16, 2019. He has tolerated it well thus far. [facility] [place] sequencing was ordered and report came back on December 19, 2019 showed HER-2/peggy negative and says it was not possible to calculate tumor mutational burden and MSI/MMR for the sample because the sequencing data did not reach the minimum depth of coverage required to provide a result on these biomarkers. Follow-up PET/CT from 02/18/2020 reports pulmonary nodules seen on the prior study were improved on the 02/18/2020 study. The index nodule in the right lower lobe that previously measured 2.7 x 1.8 cm with an SUV of 5.5 now measures 1.4 cm with an SUV of 3.2. The other right upper and left lung nodules are similarly improved. Increasing activity is present in the multiple FDG positive mediastinal nodes; as before, these are most consistent with sarcoidosis. These nodules are distributed in the right paratracheal, inferior right perihilar, subcarinal, prevascular and right hilar territories. The previously described right. Rectal node is unchanged in size but has an SUV of 4.2 up from 2.3 previously and consistent with recurrence. Rectal activity is prominent but is most likely physiologic. His last treatment was on 02/27/2020. As treatment has been on hold due to elevated blood pressure his blood pressure has been 195/110 last visit and is 189/104 today despite increasing his lisinopril to 10 mg daily.Continued with amlodipine 5 mg p.o. daily And was also complaining of headaches so MRI scan of the brain was ordered to rule out brain mets which was done on April 03, 2020 showed no evidence of metastatic disease to brain and no other acute abnormality seen patient is noncompliant with his chemotherapy as he has skipped many scheduled chemotherapy treatments in the past , and dose chemo was given on February 27, 2020, last time he was in office on April 13, 2020, at that time he was scheduled for chemotherapy on April 16, 2020 but patient did not come,And eventually resumed chemotherapy on April 30, 2020 Came for follow-up, denies any specific complaint except off and on central chest pain for couple of days after chemotherapy, no indigestion no heartburn, no palpitation, no shortness of breath associated with it. No fever chills, no mouth sores, no diarrhea or constipation, no hematemesis or hemoptysis, no melena or hematochezia, no peripheral numbness, blood pressure is within normal range. Tolerating systemic chemotherapy with Avastin/FOLFIRI well Medications: Ibuprofen 3 Tablet (of 200 mg) Oral daily PRN, Lisinopril 1 Tablet (of 10 mg) Oral daily, PriLOSEC Capsule Delayed Release Oral daily Allergies: No Known Allergies. Review of Systems: Constitutional - His energy level is poor. Appetite is good and weight is stable. No fever, chills, hot flashes, or night sweats, ENMT - He has sinus congestion/drainage. No mouth sores. No sore throat or difficulty swallowing, Hematologic/Lymphatic - No abnormal bruising or bleeding, Respiratory - He has shortness of breath with activity. He still has cough. No pleuritic pain or hemoptysis, Cardiovascular - No angina pain. No palpitations, Gastrointestinal - No nausea or vomiting. No heartburn or acid reflux. No diarrhea and constipation. No blood in the stool or black stools, Genitourinary (M) - No dysuria or hematuria. He has urinary frequency. No urgency or incontinence, Musculoskeletal - No joint or bone pain, Integumentary - No skin ulcers or open wounds. Denies any rash or skin lesions, Neurologic - Positive for headache and dizziness. No numbness/paresthesias or other focal neurologic symptoms, Psychiatric - No anxiety or depression. No insomnia. Vital Signs: Performed on May 14, 2020 09:33 Height - 70.00 in Weight - 187.2 lbs (HIGH) BSA - 2.03 sq.m BMI - 26.86 Temperature - 96.9 F (LOW) Pulse - 82 /min Respiration - 18 /min BP - 135/80 mm(hg) O2 Sat - 96 % Pain - 0 Fatigue - 5 Performance Status: 1 - No physically strenuous activity, but ambulatory and able to carry out light or sedentary work (e.g. office work, light house work). (ECOG) Physical Examination: ENMT - No mouth sores, no thrush, no jaundice, Respiratory - Lungs are clear to auscultation, Cardiovascular - Regular rate and rhythm of heart, Abdomen - Soft, bowel sounds present, Extremities - No visible edema. Lab/Imaging: Test performed on Apr 03, 2020 10:48 Ua Color Yellow Ua Appearance Clear Ua Glucose Norm Ua Bilirubin Neg Ua Ketones Negative Ua Specific [place] 1.015 Ua Blood Neg Ua pH 5 Ua Protein Neg Ua Nitrites Negative Ua Leukocyte Esterase Negative Test performed on Apr 03, 2020 10:34 Sodium 138 mmol/L Potassium 3.8 mmol/L Chloride 102 mmol/L CO2 27 mmol/L Anion Gap 12.8 BUN 11 mg/dL Creatinine 0.7 mg/dL Cr Clearance (Est) 119.3400 mL/min Glucose 121 mg/dL Osmolality - Calculated 287 mOsm/kg Calcium 9.2 mg/dL Protein, Total 6.8 g/dL Albumin 3.9 g/dL Globulin 2.9 g/dL Bilirubin, Total 0.3 mg/dL ALT (SGPT) 14 U/L AST (SGOT) 15 U/L Alkaline Phosphatase 121 IU/L WBC 8.0 10 3/uL RBC 5.31 10 6/uL HGB 13.9 g/dL HCT 42.9 % MCV 80.8 fL MCH 26.2 pg MCHC 32.4 g/dL RDW 15.4 % Platelet Count 292 10 3/cmm MPV 8.9 fL Neutrophils 5.50 10 3/uL Lymphocytes 1.5 10 3/uL Monocytes 0.6 10 3/uL Eosinophils 0.3 10 3/uL Basophils 0.1 10 3/uL Neutrophil % 69.1 % Lymphocyte % 18.3 % Monocyte % 7.3 % Eosinophil % 3.9 % Basophils % 1.3 % NRBC % 0 % CEA 2.9 ng/mL Test performed on Jan 11, 2020 00:00 Manual Diff Cancelled via OM: Cancelled in Connected System Impression: Invasive adenocarcinoma of upper rectum status post APR on 03/05/2017 final pathology showed tumor size 5.5 x 5.4 cm low-grade, tumor invades perirectal adipose p T3, lymphovascular invasion present, no perineural invasion seen 1 out of 18 positive lymph nodes N1a , extranodal extension present N1 stage IIIA No loss of nuclear expression of MMR protein Elevated PSA, on 03/12/2017 it was 35.20 with prostate enlargement, being followed by Dr. Martinez. s/p chemoradiation with Xeloda as chemosensitizer. till 11/03/17 discussed with patient regarding the role of adjuvant chemotherapy in stage IIIa rectal cancer, as literature has shown adjuvant chemotherapy improves disease-free survival. Patient has been reluctant to consider chemotherapy because of severe diarrhea during chemoradiation for rectal CA. He was assured that we will adjust/modify his adjuvant chemotherapy to make it tolerable. Patient, now agreed to get port placement and for adjuvant chemotherapy modified FOLFOX every 2 weeks ???12. All the side effect and possible benefits were discussed in detail again and patient expressed understanding. Mr Khan agreed. He was referred back to Dr. Merritt for Port-A-Cath placement and began his first cycle of FOLFOX on 02/09/2018 .Patient developed abdominal pain for which he underwent CT scan of abdomen on 03/19/2018 showed moderate constipation, and stable rectosigmoid anastomosis with no recurrent mass or adjacent adenopathy and bilateral lower lobe pulmonary nodules are stable since 02/03/2017. No evidence of metastatic disease elsewhere. Following day patient had large bowel movement and since then no more abdominal pain. Patient expressed intolerance to 5-FU infusion chemotherapy and also consider it inconvenient so requesting Xeloda pills instead of 5-FU infusion. His treatment plan was changed to XELOX beginning 03/23/2018. He has tolerated it well thus far. He completed 5 of the planned [address] PET scan done on 11/06/2018 showed prostate is enlarged, measuring 6 cm in diameter with diffusely increased FDG activity, most intense in the central prostate. Normal tracer activity at the rectal anastomosis There are 2 pulmonary nodules in the right lower lobe and one in the right upper lobe, the index nodule in the right lower lobe measuring 1.1 x 1.6 cm with SUV of 3.5. Most consistent with metastatic disease, likely from colonic primary. Multiple hypermetabolic mediastinal lymph nodes are present, consistent with metastatic disease, in the inferior right perihilar 1.9 cm, 5.2 SUV. Subcarinal, prevascular, right paratracheal, 1.9 cm, 6.8 SUV. Right hilar territories. Subcentimeter nodes are also noted in the superior right paratracheal region. Too small to characterize. Mr. Khan had established care with Dr. Esquivel in pulmonology. A bronchoscopy was performed and he was found to have sarcoidosis which was treated with some success however a follow-up CT of the chest done on August 29, 2019 showed interval progression of disease with bilateral pulmonary nodules with the largest nodule in the right lower lobe posteriorly. There was activity in the right suprahilar with narrowing of the right upper lobe bronchus and numerous additional new and progressive pulmonary nodules throughout both lungs. There was right hilar lymphadenopathy. He underwent another bronchoscopy and endobronchial ultrasound-guided transbronchial needle aspiration of station 11 R. This showed significant macrophages and histiocytes but no malignancy. However given his history there was concern about the possibility of malignancy therefore he underwent a second bronchoscopy on October 28, 2019. This did show a fungating mass at the orifice of the right upper lobe bronchus with complete occlusion of both airways. The right middle lobe and right lower lobe bronchi were examined up to a third subsegmental with no abnormality. A biopsy was obtained and did report positive for metastatic colorectal adenocarcinoma. Immunohistochemistry stains were positive for CK20 and CDX2. Mr. Khan was advised to pursue pallitave chemotherapy with FOLFOX Avastin. He began his first dose on November 16, 2019. Follow-up PET/CT from 02/18/2020 reports pulmonary nodules seen on the prior study were improved on the 02/18/2020 study. The index nodule in the right lower lobe that previously measured 2.7 x 1.8 cm with an SUV of 5.5 now measures 1.4 cm with an SUV of 3.2. The other right upper and left lung nodules are similarly improved. Increasing activity is present in the multiple FDG positive mediastinal nodes; as before, these are most consistent with sarcoidosis. These nodules are distributed in the right paratracheal, inferior right perihilar, subcarinal, prevascular and right hilar territories. The previously described right. Rectal node is unchanged in size but has an SUV of 4.2 up from 2.3 previously and consistent with recurrence. Rectal activity is prominent but is most likely physiologic. He has completed 7 cycles of FOLFIRI/Avastin. His last treatment was on 02/27/2020. His treatment has been on hold due to hypertension and severe headaches and nausea.And his hypertension being managed by PMD Plan: Discussed with patient regarding his labs white blood count 8 hemoglobin 12.9 hematocrit 39.6 platelets 300,000 CMP within normal limit except potassium 3.2 Clinically, patient doing reasonably well, tolerating FOLFIRI/Avastin well but with expected side effects. Now with central chest pain for couple of days after chemotherapy, etiology unclear could be due to gastritis/esophagitis but concern is cardiac thus we will refer him to cardiology for evaluation in the meantime we will continue with this systemic therapy, patient was due for chemotherapy today but because of chemo mixing rosales is down for repair, he will be rescheduled for tomorrow or day after and then we will see him back in 2 weeks after the chemotherapy infusion. Patient was advised in case he has chest pain, he need to go to ER for evaluation As far as mild hypokalemia is concerned, patient is noncompliant with his potassium supplements. Patient was advised to take KCl 20 mEq p.o. twice a day for 1 week and then will follow with his potassium level. Signed By: Paula Singh M.D. <<Signature on File>>
[2020-05-28] MEDS: alteplase 1 mg/mL SDV 2 mL 2 MG IV ×2 (08:55→10:05)
[2020-05-28 09:31] LABS: Basophils # 0.1 10^3/uL (0.0-0.1); Basophils % 1.1 %; Eosinophils # 0.2 10^3/uL (0.0-0.8); Hematocrit 42.4 % (42.0-52.0); Hemoglobin 13.8 g/dL (11.7-16.6); Lymphocytes # 1.6 10^3/uL (0.8-4.8); Lymphocytes % 15.9 %; Mean Corpuscular HGB Conc 32.5 g/dL (30.0-36.0); Mean Corpuscular Hemoglobin 25.8 pg (28.0-34.0); Mean Corpuscular Volume 79.4 fL (80-94); Mean Platelet Volume 9.3 fL (7.4-10.4); Monocytes # 0.7 10^3/uL (0.2-0.9); Monocytes % 6.6 %; Neutrophils # 7.58 10^3/uL (1.8-7.7); Neutrophils % 74.1 %; Nucleated Red Blood Cells % 0 %; Platelet Count 317 10^3/cmm (130-400); Red Blood Count 5.34 10^6/uL (4.1-5.3); Red Cell Distribution Width 15.4 % (12.1-15.1); White Blood Count 10.2 10^3/uL (4.0-10.0)
[2020-05-28 09:37] LABS: Alanine Aminotransferase 14 U/L (0-41); Alkaline Phosphatase 149 IU/L (40-130); Anion Gap 12.7 (5-19); Aspartate Amino Transferase 14 U/L (0-40); Blood Urea Nitrogen 14 mg/dL (8-23); Calcium 9.7 mg/dL (8.5-10.5); Carbon Dioxide 26 mmol/L (22-29); Chloride 101 mmol/L (98-107); Globulin 3.1 g/dL (1.3-4.6); Glucose 138 mg/dL (65-115); Osmolality Calculated 285 mOsm/kg (285-295); Potassium 3.7 mmol/L (3.5-5.1); Sodium 136 mmol/L (136-145); Total Bilirubin 0.4 mg/dL (0.15-1.2); Total Protein 7.1 g/dL (6.6-8.7)
[2020-05-28] MEDS: sodium chloride 0.9% 250 ML 75 ML IV (11:36)
[2020-05-28] MEDS: atropine 1 mg/mL SDV 1 mL 0.4 MG IV (11:36)
[2020-05-28] MEDS: palonosetron 0.25 mg/5 mL SDV IVP (11:38)
[2020-05-28] MEDS: ibuprofen 600 mg Tablet PO (13:30)
--- NOTE | 2020-06-01 21:33 | ONC FU_ITS ---
[facility] Patient Note Patient: Oswaldo Khan Unit #: [id number]: 1945 Dictated By: Arabella GalvezDate of Visit: May 28, 2020 Onc MED Follow-Up/Prog Note Chief Complaint: rectal carcinoma status post resection and elevated PSA level History of Present Illness: Mr Faye is a 74-year-old gentleman with history of abdominal pain and rectal bleed underwent colonoscopy and was found to have a rectal mass. A biopsy was obtained and it confirmed adenocarcinoma. Mr Khan then underwent low anterior resection on 03/05/2017. The final pathology report showed invasive adenocarcinoma , tumor invades perirectal adipose and 1 out of 18 lymph nodes was positive with extranodal extension and no loss of nuclear expression of MMR protein . Mr Khan also has history of elevated PSA. On 03/12/2017 his PSA was 35.20. As per patient he has seen Dr. Sunil Martinez , urologist, who is following him and CT scan of abdomen pelvis done on 03/19/2017 showed some prominent retroperitoneal lymph nodes somewhat more prominent than in 2013 Mr Khan took combined chemoradiation for 3 days the first week but then accidentally pulled his [place]ur cath and sustained urethral injury. He was evaluated by Dr. Martinez and underwent cystoscopy exam and reinsertion of Mc[place]ur cath, during this time combined chemoradiation therapy was on hold. He resumed 4 weeks after . Patient was advised to take Xeloda daily for 5 days per week during radiation therapy. His Xeloda daily the days of radiation only was held few days due to persistent diarrhea. He concluded his chemoradiation on 11/03/2017. The diarrhea resolved at that time. Mr. Khan has been advised to pursue adjuvant chemotherapy with FOLFOX. had a long discussion regarding the role of adjuvant chemotherapy. he agreed to get Port-A-Cath placement but then at the last minute he changed his mind. Since that time though, he has agreed to pursue the recommended adjuvant chemotherapy. He completed 2 cycles of modified FOLFOX as of 03/04/2018. At his 03/16/2018 appointment, he stated had been having increased abdominal pain and decreased energy. He stated that he did not complete the full 2 days of the fluorouracil pump last one and this he felt like it was making me feel pretty bad . CT scan of the abdomen was done on on 03/19/2018 show stable rectosigmoid anastomosis with no recurrent or adjacent adenopathy. Moderate diffuse constipation. At the patient's request and and his refusal to continue with 5-FU infusion, it was opted to change the chemotherapy plan of care to XELOX on 03/23/2018 and with the plan to give him 6 cycles. Mr. Khan is tolerated it well at this time. 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 He completed 5/6 cycles. At his request, Adjuvant chemotherapy with Xelox concluded on 07/05/2018. CT scan of abdomen pelvis done on 09/23/2018 showed no acute findings but 1.3 cm nodule in the right lower lobe of the lung. CT PET scan done on 11/06/2018 showed enlarged prostate with diffusely increase uptake Malignant appearing right lung nodules, most likely from colonic carcinoma Malignant mediastinal lymph nodes, most likely from colonic carcinoma No evidence for local prostate metastatic nodes. Normal activity at rectal anastomosis. Mr Khan had followup in August [address] Esquivel, speech communication instructor. A bronchoscopy was obtained and Mr Khan was diagnosed with sarcoidosis. This was treated with some success but follow-up CT scan of chest done on August 30, 2019 showed evidence of interval progression of disease with bilateral pulmonary nodules. The largest nodule in the right lower lobe posteriorly and right suprahilar with narrowing of right upper lobe bronchus and numerous additional new and progressive pulmonary nodules throughout both lungs right hilar lymphadenopathy. The patient underwent bronchoscopy and endobronchial ultrasound-guided transbronchial needle aspiration of station 11 R, showed significant macrophages and histiocytes but no malignancy. but there was a concern about possibility of malignancy so patient underwent second bronchoscopy on October 28, 2019 which showed a fungating mass was seen at the orifice of right upper lobe bronchus with complete occlusion of airways. The right middle lobe and right lower lobe bronchi were examined up to third subsegmental with no abnormality. Biopsy was obtained came back positive for metastatic colorectal adenocarcinoma as immunohistochemistry stain were positive for CK20 and CDX2. Mr Khan was started on systemic chemotherapy with a Avastin/FOLFIRI on November 16, 2019. He has tolerated it well thus far. [facility] sequencing was ordered and report came back on December 19, 2019 showed HER-2/peggy negative and says it was not possible to calculate tumor mutational burden and MSI/MMR for the sample because the sequencing data did not reach the minimum depth of coverage required to provide a result on these biomarkers. Follow-up PET/CT from 02/18/2020 reports pulmonary nodules seen on the prior study were improved on the 02/18/2020 study. The index nodule in the right lower lobe that previously measured 2.7 x 1.8 cm with an SUV of 5.5 now measures 1.4 cm with an SUV of 3.2. The other right upper and left lung nodules are similarly improved. Increasing activity is present in the multiple FDG positive mediastinal nodes; as before, these are most consistent with sarcoidosis. These nodules are distributed in the right paratracheal, inferior right perihilar, subcarinal, prevascular and right hilar territories. The previously described right. Rectal node is unchanged in size but has an SUV of 4.2 up from 2.3 previously and consistent with recurrence. Rectal activity is prominent but is most likely physiologic. His last treatment was on 02/27/2020. As treatment has been on hold due to elevated blood pressure his blood pressure has been 195/110 last visit and is 189/104 today despite increasing his lisinopril to 10 mg daily.Continued with amlodipine 5 mg p.o. daily And was also complaining of headaches so MRI scan of the brain was ordered to rule out brain mets which was done on April 03, 2020 showed no evidence of metastatic disease to brain and no other acute abnormality seen Mr Khan has been noncompliant with his chemotherapy as he has skipped many scheduled chemotherapy treatments in the past. An example of his most recent noncompliance; his chemo was given on February 27, 2020 and he did return to the office until April 13, 2020, at that time he was scheduled for chemotherapy on April 16, 2020, but patient did not come. He did eventually resume chemotherapy on April 30, 2020. His last chemotherapy prior to April 30, 2020 was February 27, 2020. Mr. Khan states he feels good overall. He is extremely hard of hearing but that is unchanged. He denies any new concerns. He denies any fever or chills. He sores, sore throat or difficulty swallowing. He denies any bowel or bladder changes. He states he is urinary frequency at night has gotten some worse but he is seeing Dr. Martinez for that later this week. He is also following up with him regarding his history of elevated PSA. He states his headache is overall better and that his blood pressure has been controlled. 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 He states he does have a headache off and on but overall it is much better. It is hard to determine how close to treatment it is actually occurring but could possibly due to the Aloxi he is receiving as premed prior to chemotherapy. 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 His ECOG is 1. Past Medical History: Chronic obstructive pulmonary disease Gastroesophageal reflux Past Surgical History: Port placement - dr. allen TRUSP / biopsy in 2018 Appendectomy in 2017 Cholecystectomy in 2016 Liver wedge biopsy in 2017 Hernia repair in 2009 Allergies: No Known Allergies. Medications: Ibuprofen 3 Tablet (of 200 mg) Oral daily PRN Lisinopril 1 Tablet (of 25 ) Oral daily PriLOSEC Capsule Delayed Release Oral daily Family History: Mr. Khan's mother at age 62: diabetes, and heart attack, and pneumonia. Mr. Khan's father at age 74: Colon Cancer. Mr. Khan has 1 brother who is alive: heart disease. Social History: Mr. Khan is and he is retired. He is a daily smoker who has smoked 1.0 pack/day for 31 years. He has no history of drinking. Review Of Symptoms: Constitutional Denies fevers, chills, night sweats, excessive fatigue or weight loss. States he is still having headaches but they are better than they were and not as frequent. He states he is eating good. Allergic/Immunologic No reactions. Eyes Denies significant visual changes. No diplopia. No amaurosis. Occasional blurry vision but not new. ENMT Denies changes in hearing (extremely heard of hearing-unchanged), sore throat, mouth sores, difficulty or changes in swallowing ability, and/or sinus drainage. Endocrine No diabetes, thyroid disease or hormone replacement. Denies hot flashes or night sweats. Hematologic/Lymphatic Denies easy bruising or bleeding. The patient denies any tender or palpable lymph nodes. Respiratory He states he feels that his shortness of breath is about the same but denies chest pain since his last visit. he has chronic cough but it is stable. He has not had sputum production or hemoptysis. Denies orthopnea. Cardiovascular Denies anginal chest pain, palpitations or orthopnea. Gastrointestinal Denies vomiting, GI bleeding, or constipation. Denies change in bowel habits and/or stool color or early satiety. He states he does have some nausea once in a while-I think I drink too much coffee . Genitourinary (M) Denies hematuria, dysuria, increased frequency, urgency, hesitancy or incontinence. Musculoskeletal Denies joint pain, swelling or redness. No decreased range of motion. Integumentary Denies chronic rashes, inflammation, ulcerations or skin changes. Neurologic Denies headache, blurred vision, and no areas of focal weakness or numbness. Normal gait. No sensory problems. Psychiatric Denies insomnia, depression, eliecer or mood swings. Vital Signs: Performed on May 28, 2020 10:47 Height - 70.00 in Weight - 184.6 lbs (LOW) BSA - 2.02 sq.m BMI - 26.49 Temperature - 96.7 F (LOW) Pulse - 97 /min Respiration - 18 /min BP - 150/83 mm(hg) (HIGH) O2 Sat - 96 % Pain - 0,1 - No physically strenuous activity, but ambulatory and able to carry out light or sedentary work (e.g. office work, light house work). (ECOG) Physical Examination: Constitutional Alert, oriented, no acute distress. Skin pink, warm and dry. Hard of hearing- no worse than his last visit but is severe. Head Normocephalic; atraumatic. Eyes Conjunctivae and sclerae are clear and without icterus. Pupils are reactive and equal. Neck Supple without masses or thyromegaly. No jugular venous distension. Hematologic/Lymphatic No petechiae or purpura. No tender or palpable lymph nodes in the cervical or supraclavicular area. Respiratory Lungs are clear to auscultation without rhonchi or wheezing. Cardiovascular Regular rate and rhythm of heart without murmurs,clicks, gallops or rubs. Abdomen Non-tender, non-distended or masses, ascites. Good bowel sounds noted in all quads. No guarding or rebound tenderness. Back/Spine Non-tender to palpation. Extremities No visible deformities, no cyanosis, clubbing or edema. Musculoskeletal No tenderness or swelling, normal range of motion without obvious weakness. Integumentary No rashes or lesions. Neurologic No sensory or motor deficits, normal cerebellar function, normal gait. Psychiatric Alert and oriented times three. Coherent speech. Verbalizes understanding of our discussions today. Laboratory:Test performed on May 28, 2020 08:56 Sodium 136 mmol/L Potassium 3.7 mmol/L Chloride 101 mmol/L CO2 26 mmol/L Anion Gap 12.7 BUN 14 mg/dL Creatinine 0.7 mg/dL Cr Clearance (Est) 119.3400 mL/min Glucose 138 mg/dL Osmolality - Calculated 285 mOsm/kg Calcium 9.7 mg/dL Protein, Total 7.1 g/dL Albumin 4.0 g/dL Globulin 3.1 g/dL Bilirubin, Total 0.4 mg/dL ALT (SGPT) 14 U/L AST (SGOT) 14 U/L Alkaline Phosphatase 149 IU/L WBC 10.2 10 3/uL RBC 5.34 10 6/uL HGB 13.8 g/dL HCT 42.4 % MCV 79.4 fL MCH 25.8 pg MCHC 32.5 g/dL RDW 15.4 % Platelet Count 317 10 3/cmm MPV 9.3 fL Neutrophils 7.58 10 3/uL Lymphocytes 1.6 10 3/uL Monocytes 0.7 10 3/uL Eosinophils 0.2 10 3/uL Basophils 0.1 10 3/uL Neutrophil % 74.1 % Lymphocyte % 15.9 % Monocyte % 6.6 % Eosinophil % 2.0 % Basophils % 1.1 % NRBC % 0 % PSA 1.410 ng/mL Impression: Invasive adenocarcinoma of upper rectum status post APR on 03/05/2017 final pathology showed tumor size 5.5 x 5.4 cm low-grade, tumor invades perirectal adipose p T3, lymphovascular invasion present, no perineural invasion seen 1 out of 18 positive lymph nodes N1a , extranodal extension present N1 stage IIIA No loss of nuclear expression of MMR protein Elevated PSA, on 03/12/2017 it was 35.20 with prostate enlargement, being followed by Dr. Martinez. s/p chemoradiation with Xeloda as chemosensitizer. till 11/03/17 discussed with patient regarding the role of adjuvant chemotherapy in stage IIIa rectal cancer, as literature has shown adjuvant chemotherapy improves disease-free survival. Patient has been reluctant to consider chemotherapy because of severe diarrhea during chemoradiation for rectal CA. He was assured that we will adjust/modify his adjuvant chemotherapy to make it tolerable. Patient, now agreed to get port placement and for adjuvant chemotherapy modified FOLFOX every 2 weeks ???12. All the side effect and possible benefits were discussed in detail again and patient expressed understanding. Mr Khan agreed. He was referred back to Dr. Merritt for Port-A-Cath placement and began his first cycle of FOLFOX on 02/09/2018 .Patient developed abdominal pain for which he underwent CT scan of abdomen on 03/19/2018 showed moderate constipation, and stable rectosigmoid anastomosis with no recurrent mass or adjacent adenopathy and bilateral lower lobe pulmonary nodules are stable since 02/03/2017. No evidence of metastatic disease elsewhere. Following day patient had large bowel movement and since then no more abdominal pain. Patient expressed intolerance to 5-FU infusion chemotherapy and also consider it inconvenient so requesting Xeloda pills instead of 5-FU infusion. His treatment plan was changed to XELOX beginning 03/23/2018. He has tolerated it well thus far. He completed 5 of the planned [address] PET scan done on 11/06/2018 showed prostate is enlarged, measuring 6 cm in diameter with diffusely increased FDG activity, most intense in the central prostate. Normal tracer activity at the rectal anastomosis There are 2 pulmonary nodules in the right lower lobe and one in the right upper lobe, the index nodule in the right lower lobe measuring 1.1 x 1.6 cm with SUV of 3.5. Most consistent with metastatic disease, likely from colonic primary. Multiple hypermetabolic mediastinal lymph nodes are present, consistent with metastatic disease, in the inferior right perihilar 1.9 cm, 5.2 SUV. Subcarinal, prevascular, right paratracheal, 1.9 cm, 6.8 SUV. Right hilar territories. Subcentimeter nodes are also noted in the superior right paratracheal region. Too small to characterize. Mr. Khan had established care with Dr. Esquivel in pulmonology. A bronchoscopy was performed and he was found to have sarcoidosis which was treated with some success however a follow-up CT of the chest done on August 29, 2019 showed interval progression of disease with bilateral pulmonary nodules with the largest nodule in the right lower lobe posteriorly. There was activity in the right suprahilar with narrowing of the right upper lobe bronchus and numerous additional new and progressive pulmonary nodules throughout both lungs. There was right hilar lymphadenopathy. He underwent another bronchoscopy and endobronchial ultrasound-guided transbronchial needle aspiration of station 11 R. This showed significant macrophages and histiocytes but no malignancy. However given his history there was concern about the possibility of malignancy therefore he underwent a second bronchoscopy on October 28, 2019. This did show a fungating mass at the orifice of the right upper lobe bronchus with complete occlusion of both airways. The right middle lobe and right lower lobe bronchi were examined up to a third subsegmental with no abnormality. A biopsy was obtained and did report positive for metastatic colorectal adenocarcinoma. Immunohistochemistry stains were positive for CK20 and CDX2. Mr. Khan was advised to pursue pallitave chemotherapy with FOLFOX Avastin. He began his first dose on November 16, 2019. Follow-up PET/CT from 02/18/2020 reports pulmonary nodules seen on the prior study were improved on the 02/18/2020 study. The index nodule in the right lower lobe that previously measured 2.7 x 1.8 cm with an SUV of 5.5 now measures 1.4 cm with an SUV of 3.2. The other right upper and left lung nodules are similarly improved. Increasing activity is present in the multiple FDG positive mediastinal nodes; as before, these are most consistent with sarcoidosis. These nodules are distributed in the right paratracheal, inferior right perihilar, subcarinal, prevascular and right hilar territories. The previously described right. Rectal node is unchanged in size but has an SUV of 4.2 up from 2.3 previously and consistent with recurrence. Rectal activity is prominent but is most likely physiologic. He has completed 7 cycles of FOLFIRI/Avastin. His last treatment was on 02/27/2020. His treatment has been on hold due to hypertension and severe headaches and nausea.And his hypertension being managed by PMD Plan: PROBLEMS ADDRESSED TODAY 1. Rectal cancer with metastasis to the lung and mediastinal adenopathy. He has completed 8 cycles of FOLFIRI and Avastin. He has had multiple delays in his treatment plan some due to noncompliance and some due to elevated blood pressure and severe headache. His blood pressure is now controlled and his headache has improved. He did have MRI of the brain which was negative. He resumed cycle 8 FOLFIRI Avastin on April 30, 2020. A. Proceed with cycle 9 FOLFIRI Avastin today with continued doses. We will monitor his headache closely, if he has recurrent headache we could consider changing the Aloxi to Zofran if we can correlate the headache with administration of the Aloxi. B. Today's labs reviewed in detail and discussed with Mr. Khan and a copy was given to him. WBC 10.2, hemoglobin 13.8, platelets 317,000 ANC is 7580. creatinine 0.7, LFTs are normal. PSA was pending at visit???he will plan to review this with Dr. Martinez at his follow-up on Thursday. C. We will refill his pain medication for chronic back and neck pain as well as rectal pain. This will be refilled per Dr. Jaeger's written authorization and coverage for . D. We will plan to see him back in 2 weeks with CBC CMP and CEA. He will be due for cycle 10 FOLFIRI Avastin at that time. E. Mr. Khan was encouraged to contact us in interim should questions or problems arise. F. He has been encouraged to continue his current plan of care and follow-up with cardiology on Thursday as planned for concerns of chest pain related to the chemotherapy and intermittent hypertension which could be related to the Avastin. He states his blood pressures run normal at home. 2. Hypokalemia A. His hypokalemia from his May 14, 2020 visit has resolved as he is now compliant with his potassium supplements. His potassium level today was 3.7. Signed By: Arabella Galvez-, AOCNP Paula Singh MD <<Signature on File>>
== END 2020-06-03 23:59 | disposition home or self-care (01) ==
LOC: ONCMED 05:34
PROVIDERS: Internal Medicine Hematology & Oncology; PCP Nurse Practitioner; Visit Provider Nurse Practitioner
DX: Z51.11 Encounter for antineoplastic chemotherapy (principal); C19 Malignant neoplasm of rectosigmoid junction; C78.01 Secondary malignant neoplasm of right lung; C77.8 Secondary and unspecified malignant neoplasm of lymph nodes of multiple regions; R97.20 Elevated prostate specific antigen [PSA]; N40.0 Benign prostatic hyperplasia without lower urinary tract symptoms; E87.6 Hypokalemia; Z79.899 Other long term (current) drug therapy
CPT/HCPCS: 36593; 80053; 81003; 84153; 85025; 96367; 96368; 96374; 96375; 96376; 96413; 96415; 96416; 96417; 96523; 99214; J0461; J0640; J1100; J2469; J2997; J7050; J9035; J9190; J9206

== ENCOUNTER 2020-06-11 09:33 | Outpatient (RCR) | payer MEDICARE, MEDICAID, SELFPAY ==
[2020-06-11 10:01] LABS: Basophils # 0.1 10^3/uL (0.0-0.1); Basophils % 0.9 %; Eosinophils # 0.3 10^3/uL (0.0-0.8); Eosinophils % 3.6 %; Hematocrit 39.6 % (42.0-52.0); Hemoglobin 12.7 g/dL (11.7-16.6); Lymphocytes # 1.2 10^3/uL (0.8-4.8); Lymphocytes % 16.7 %; Mean Corpuscular HGB Conc 32.1 g/dL (30.0-36.0); Mean Corpuscular Hemoglobin 25.6 pg (28.0-34.0); Mean Corpuscular Volume 79.8 fL (80-94); Mean Platelet Volume 8.7 fL (7.4-10.4); Monocytes # 0.5 10^3/uL (0.2-0.9); Monocytes % 7.3 %; Neutrophils # 4.95 10^3/uL (1.8-7.7); Neutrophils % 71.2 %; Nucleated Red Blood Cells % 0 %; Platelet Count 286 10^3/cmm (130-400); Red Blood Count 4.96 10^6/uL (4.1-5.3); Red Cell Distribution Width 15.7 % (12.1-15.1)
[2020-06-11 10:23] LABS: Alanine Aminotransferase 14 U/L (0-41); Albumin Level 3.9 g/dL (3.5-5.2); Alkaline Phosphatase 117 IU/L (40-130); Anion Gap 12.7 (5-19); Aspartate Amino Transferase 12 U/L (0-40); Blood Urea Nitrogen 13 mg/dL (8-23); Calcium 9.9 mg/dL (8.5-10.5); Carbon Dioxide 28 mmol/L (22-29); Chloride 100 mmol/L (98-107); Globulin 3.2 g/dL (1.3-4.6); Glucose 112 mg/dL (65-115); Osmolality Calculated 285 mOsm/kg (285-295); Potassium 3.7 mmol/L (3.5-5.1); Sodium 137 mmol/L (136-145); Total Bilirubin 0.3 mg/dL (0.15-1.2); Total Protein 7.1 g/dL (6.6-8.7)
[2020-06-11 11:25] LABS: Carcinoembryonic Antigen 3.6 ng/mL (0.0-4.7)
--- NOTE | 2020-06-11 12:22 | ONC FU_ITS ---
[facility] Patient Note Patient: Oswaldo Khan Unit #: [id number]: 1945 Dictated By: Arabella GalvezDate of Visit: Jun 11, 2020 Onc MED Follow-Up/Prog Note Chief Complaint: Upper rectal carcinoma status post resection and elevated PSA level History of Present Illness: Mr. Khan is a 74-year-old gentleman with history of abdominal pain and rectal bleed underwent colonoscopy and was found to have a rectal mass. A biopsy was obtained and it confirmed adenocarcinoma. Mr Khan then underwent low anterior resection on 03/05/2017. The final pathology report showed invasive adenocarcinoma , tumor invades perirectal adipose and 1 out of 18 lymph nodes was positive with extranodal extension and no loss of nuclear expression of MMR protein . Mr Khan also has history of elevated PSA. On 03/12/2017 his PSA was 35.20. As per patient he has seen Dr. Sunil Martinez , urologist, who is following him and CT scan of abdomen pelvis done on 03/19/2017 showed some prominent retroperitoneal lymph nodes somewhat more prominent than in 2013 Mr Khan took combined chemoradiation for 3 days the first week but then accidentally pulled his [place] cath and sustained urethral injury. He was evaluated by Dr. Martinez and underwent cystoscopy exam and reinsertion of Mc[place]ur cath, during this time combined chemoradiation therapy was on hold. He resumed 4 weeks after . Patient was advised to take Xeloda daily for 5 days per week during radiation therapy. His Xeloda daily the days of radiation only was held few days due to persistent diarrhea. He concluded his chemoradiation on 11/03/2017. The diarrhea resolved at that time. Mr. Khan was advised to pursue adjuvant chemotherapy with FOLFOX. had a long discussion regarding the role of adjuvant chemotherapy. he agreed to get Port-A-Cath placement but then at the last minute he changed his mind. Since that time though, he has agreed to pursue the recommended adjuvant chemotherapy. He completed 2 cycles of modified FOLFOX as of 03/04/2018. At his 03/16/2018 appointment, he stated had been having increased abdominal pain and decreased energy. He stated that he did not complete the full 2 days of the fluorouracil pump last one and this he felt like it was making me feel pretty bad . CT scan of the abdomen was done on on 03/19/2018 show stable rectosigmoid anastomosis with no recurrent or adjacent adenopathy. Moderate diffuse constipation. At the patient's request and and his refusal to continue with 5-FU infusion, it was opted to change the chemotherapy plan of care to XELOX on 03/23/2018 and with the plan to give him 6 cycles. Mr. Khan is tolerated it well at this time. 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 He completed 5/6 cycles. At his request, Adjuvant chemotherapy with Xelox concluded on 07/05/2018. CT scan of abdomen pelvis done on 09/23/2018 showed no acute findings but 1.3 cm nodule in the right lower lobe of the lung. CT PET scan done on 11/06/2018 showed enlarged prostate with diffusely increase uptake Malignant appearing right lung nodules, most likely from colonic carcinoma Malignant mediastinal lymph nodes, most likely from colonic carcinoma No evidence for local prostate metastatic nodes. Normal activity at rectal anastomosis. Mr Khan had followup in August [address] Esquivel, screwdown operator. A bronchoscopy was obtained and Mr Khan was diagnosed with sarcoidosis. This was treated with some success but follow-up CT scan of chest done on August 30, 2019 showed evidence of interval progression of disease with bilateral pulmonary nodules. The largest nodule in the right lower lobe posteriorly and right suprahilar with narrowing of right upper lobe bronchus and numerous additional new and progressive pulmonary nodules throughout both lungs right hilar lymphadenopathy. The patient underwent bronchoscopy and endobronchial ultrasound-guided transbronchial needle aspiration of station 11 R, showed significant macrophages and histiocytes but no malignancy. but there was a concern about possibility of malignancy so patient underwent second bronchoscopy on October 28, 2019 which showed a fungating mass was seen at the orifice of right upper lobe bronchus with complete occlusion of airways. The right middle lobe and right lower lobe bronchi were examined up to third subsegmental with no abnormality. Biopsy was obtained came back positive for metastatic colorectal adenocarcinoma as immunohistochemistry stain were positive for CK20 and CDX2. Mr Khan was started on systemic chemotherapy with a Avastin/FOLFIRI on November 16, 2019. He has tolerated it well thus far. Next [facility] sequencing was ordered and report came back on December 19, 2019 showed HER-2/peggy negative and says it was not possible to calculate tumor mutational burden and MSI/MMR for the sample because the sequencing data did not reach the minimum depth of coverage required to provide a result on these biomarkers. Follow-up PET/CT from 02/18/2020 reports pulmonary nodules seen on the prior study were improved on the 02/18/2020 study. The index nodule in the right lower lobe that previously measured 2.7 x 1.8 cm with an SUV of 5.5 now measures 1.4 cm with an SUV of 3.2. The other right upper and left lung nodules are similarly improved. Increasing activity is present in the multiple FDG positive mediastinal nodes; as before, these are most consistent with sarcoidosis. These nodules are distributed in the right paratracheal, inferior right perihilar, subcarinal, prevascular and right hilar territories. The previously described right. Rectal node is unchanged in size but has an SUV of 4.2 up from 2.3 previously and consistent with recurrence. Rectal activity is prominent but is most likely physiologic. His last treatment was on 02/27/2020. As treatment has been on hold due to elevated blood pressure his blood pressure has been 195/110 last visit and is 189/104 today despite increasing his lisinopril to 10 mg daily.Continued with amlodipine 5 mg p.o. daily And was also complaining of headaches so MRI scan of the brain was ordered to rule out brain mets which was done on April 03, 2020 showed no evidence of metastatic disease to brain and no other acute abnormality seen Mr Khan has been noncompliant with his chemotherapy as he has skipped many scheduled chemotherapy treatments in the past. An example of his most recent noncompliance; his chemo was given on February 27, 2020 and he did return to the office until April 13, 2020, at that time he was scheduled for chemotherapy on April 16, 2020, but patient did not come. He did eventually resume chemotherapy on April 30, 2020. His last chemotherapy prior to April 30, 2020 was February 27, 2020. Mr. Khan is here today for follow-up and consideration of cycle 10 FOLFIRI/Avastin. His last chemotherapy with 5-FU irinotecan and Avastin was given on May 28, 2020. He presents a day early as he got a schedule mixed up. However he reports that today is the first day he has felt good since his last treatment. He has had persistent chest pain. He states it started on Thursday after his treatment. He states is just a bad pain in the center of my chest that radiated up my neck and down both arms. He states the only relief he finally got from it was taking 2 hydrocodone 5 325 tablets. He states in the past he had take a Tylenol and maybe Motrin and maybe 1 hydrocodone along with 1 Motrin and that would relieve his pain but currently that is not working. He states he did see Dr. Thao on May 30, 2020. Mr. Khan reports that he is scheduled for stress test on June 20. He states he does not have any Nitrostat on hand. He describes the pain is just a bad heavy pain. He had also mentioned to one of the nurses that it was a sharp stabbing pain to. He states has been persistent. He states it does not feel deep that it just feels kind of in the top part of his chest. He denies any rash. He denies any new shortness of breath or orthopnea but states he is always short of breath. He has persistent cough but is unchanged. He denies any fever or chills. He denies any nausea or vomiting. He has had no TIA type symptoms. He denies any bowel or bladder problems. He denies any diarrhea after the last treatment. His ECOG is 1. Past Medical History: Chronic obstructive pulmonary disease Gastroesophageal reflux Past Surgical History: Port placement - dr. allen TRUSP / biopsy in 2018 Appendectomy in 2017 Cholecystectomy in 2017 Liver wedge biopsy in 2017 Hernia repair in 2009 Allergies: No Known Allergies. Medications: Flomax 1 Tablet (of 0.4 mg) Capsule Oral daily Ibuprofen 3 Tablet (of 200 mg) Oral daily PRN Lisinopril 1 Tablet (of 25 ) Oral daily PriLOSEC Capsule Delayed Release Oral daily Family History: Mr. Khan's mother at age 62: diabetes, and heart attack, and pneumonia. Mr. Khan's father at age 74: Colon Cancer. Mr. Khan has 1 brother who is alive: heart disease. Social History: Mr. Khan is and he is retired. He is a daily smoker who has smoked 1.0 pack/day for 31 years. He has no history of drinking. Review Of Symptoms: Constitutional Denies fevers, chills, night sweats, excessive fatigue or weight loss. States he is still having intermittent headaches but they are better than they were and not as frequent. He does have headaches with chest pain-see above. He states he is eating good. Allergic/Immunologic No reactions. Eyes Denies significant visual changes. No diplopia. No amaurosis. Occasional blurry vision but not new. ENWA Denies changes in hearing (extremely heard of hearing-unchanged), sore throat, mouth sores, difficulty or changes in swallowing ability, and/or sinus drainage. Hematologic/Lymphatic Denies easy bruising or bleeding. The patient denies any tender or palpable lymph nodes. Respiratory He states he feels that his shortness of breath is about the same and he has a chronic cough but it is stable. He has not had sputum production or hemoptysis. Denies orthopnea. Cardiovascular Mr. Khan has had persistent chest pain since his last chemotherapy. He states that it got as high as a 9 on the 10 pain scale. He is followed with cardiology and due for stress test next week. He states he fell he was able to get relief from the pain with taking 2 hydrocodone 5 325 tablets. He is having no chest pain today. He states he actually feels really good today for the first time since last chemo. Gastrointestinal Denies vomiting, GI bleeding, or constipation. Denies change in bowel habits and/or stool color or early satiety. He states he does have some nausea once in a while-I think I drink too much coffee . Genitourinary (M) Denies hematuria, dysuria, increased frequency, urgency, hesitancy or incontinence. Musculoskeletal Denies joint pain, swelling or redness. No decreased range of motion. Integumentary Denies chronic rashes, inflammation, ulcerations or skin changes. Neurologic Denies headache, blurred vision, and no areas of focal weakness or numbness. Normal gait. No sensory problems. Psychiatric Denies insomnia, depression, eliecer or mood swings. Vital Signs: Performed on Jun 11, 2020 10:55 Height - 70.00 in Weight - 187.8 lbs (HIGH) BSA - 2.03 sq.m BMI - 26.95 Temperature - 96.7 F (LOW) Pulse - 90 /min Respiration - 18 /min BP - 149/84 mm(hg) (HIGH) O2 Sat - 94 % (LOW) Pain - 0 Fatigue - 5,1 - No physically strenuous activity, but ambulatory and able to carry out light or sedentary work (e.g. office work, light house work). (ECOG) Physical Examination: Constitutional Alert, oriented, no acute distress. Skin pink, warm and dry. Hard of hearing- no worse than his last visit but is severe. Head Normocephalic; atraumatic. Eyes Conjunctivae and sclerae are clear and without icterus. Pupils are reactive and equal. Neck Supple without masses or thyromegaly. No jugular venous distension. Hematologic/Lymphatic No petechiae or purpura. No tender or palpable lymph nodes in the cervical or supraclavicular area. Respiratory Lungs are clear to auscultation without rhonchi or wheezing. Cardiovascular Regular rate and rhythm of heart without murmurs,clicks, gallops or rubs. Abdomen Non-tender, non-distended or masses, ascites. Good bowel sounds noted in all quads. No guarding or rebound tenderness. Back/Spine Non-tender to palpation. Extremities No visible deformities, no cyanosis, clubbing or edema. Musculoskeletal No tenderness or swelling, normal range of motion without obvious weakness. Integumentary No rashes or lesions. Neurologic No sensory or motor deficits, normal cerebellar function, normal gait. Psychiatric Alert and oriented times three. Coherent speech. Verbalizes understanding of our discussions today. Laboratory:Test performed on Jun 11, 2020 09:41 Sodium 137 mmol/L Potassium 3.7 mmol/L Chloride 100 mmol/L CO2 28 mmol/L Anion Gap 12.7 BUN 13 mg/dL Creatinine 0.7 mg/dL Cr Clearance (Est) 119.3400 mL/min Glucose 112 mg/dL Osmolality - Calculated 285 mOsm/kg Calcium 9.9 mg/dL Protein, Total 7.1 g/dL Albumin 3.9 g/dL Globulin 3.2 g/dL Bilirubin, Total 0.3 mg/dL ALT (SGPT) 14 U/L AST (SGOT) 12 U/L Alkaline Phosphatase 117 IU/L WBC 7.0 10 3/uL RBC 4.96 10 6/uL HGB 12.7 g/dL HCT 39.6 % MCV 79.8 fL MCH 25.6 pg MCHC 32.1 g/dL RDW 15.7 % Platelet Count 286 10 3/cmm MPV 8.7 fL Neutrophils 4.95 10 3/uL Lymphocytes 1.2 10 3/uL Monocytes 0.5 10 3/uL Eosinophils 0.3 10 3/uL Basophils 0.1 10 3/uL Neutrophil % 71.2 % Lymphocyte % 16.7 % Monocyte % 7.3 % Eosinophil % 3.6 % Basophils % 0.9 % NRBC % 0 % CEA 3.6 ng/mL Test performed on May 28, 2020 08:56 PSA 1.410 ng/mL Test performed on Apr 03, 2020 10:48 Ua Color Yellow Ua Appearance Clear Ua Glucose Norm Ua Bilirubin Neg Ua Ketones Negative Ua Specific [place] 1.015 Ua Blood Neg Ua pH 5 Ua Protein Neg Ua Nitrites Negative Ua Leukocyte Esterase Negative Test performed on Jan 11, 2020 00:00 Manual Diff Cancelled via OM: Cancelled in Connected System Impression: Invasive adenocarcinoma of upper rectum status post APR on 03/05/2017 final pathology showed tumor size 5.5 x 5.4 cm low-grade, tumor invades perirectal adipose p T3, lymphovascular invasion present, no perineural invasion seen 1 out of 18 positive lymph nodes N1a , extranodal extension present N1 stage IIIA No loss of nuclear expression of MMR protein Elevated PSA, on 03/12/2017 it was 35.20 with prostate enlargement, being followed by Dr. Martinez. s/p chemoradiation with Xeloda as chemosensitizer. till 11/03/17 discussed with patient regarding the role of adjuvant chemotherapy in stage IIIa rectal cancer, as literature has shown adjuvant chemotherapy improves disease-free survival. Patient has been reluctant to consider chemotherapy because of severe diarrhea during chemoradiation for rectal CA. He was assured that we will adjust/modify his adjuvant chemotherapy to make it tolerable. Patient, now agreed to get port placement and for adjuvant chemotherapy modified FOLFOX every 2 weeks ???12. All the side effect and possible benefits were discussed in detail again and patient expressed understanding. Mr Khan agreed. He was referred back to Dr. Merritt for Port-A-Cath placement and began his first cycle of FOLFOX on 02/09/2018 .Patient developed abdominal pain for which he underwent CT scan of abdomen on 03/19/2018 showed moderate constipation, and stable rectosigmoid anastomosis with no recurrent mass or adjacent adenopathy and bilateral lower lobe pulmonary nodules are stable since 02/03/2017. No evidence of metastatic disease elsewhere. Following day patient had large bowel movement and since then no more abdominal pain. Patient expressed intolerance to 5-FU infusion chemotherapy and also consider it inconvenient so requesting Xeloda pills instead of 5-FU infusion. His treatment plan was changed to XELOX beginning 03/23/2018. He has tolerated it well thus far. He completed 5 of the planned [address] PET scan done on 11/06/2018 showed prostate is enlarged, measuring 6 cm in diameter with diffusely increased FDG activity, most intense in the central prostate. Normal tracer activity at the rectal anastomosis There are 2 pulmonary nodules in the right lower lobe and one in the right upper lobe, the index nodule in the right lower lobe measuring 1.1 x 1.6 cm with SUV of 3.5. Most consistent with metastatic disease, likely from colonic primary. Multiple hypermetabolic mediastinal lymph nodes are present, consistent with metastatic disease, in the inferior right perihilar 1.9 cm, 5.2 SUV. Subcarinal, prevascular, right paratracheal, 1.9 cm, 6.8 SUV. Right hilar territories. Subcentimeter nodes are also noted in the superior right paratracheal region. Too small to characterize. Mr. Khan had established care with Dr. Esquivel in pulmonology. A bronchoscopy was performed and he was found to have sarcoidosis which was treated with some success however a follow-up CT of the chest done on August 29, 2019 showed interval progression of disease with bilateral pulmonary nodules with the largest nodule in the right lower lobe posteriorly. There was activity in the right suprahilar with narrowing of the right upper lobe bronchus and numerous additional new and progressive pulmonary nodules throughout both lungs. There was right hilar lymphadenopathy. He underwent another bronchoscopy and endobronchial ultrasound-guided transbronchial needle aspiration of station 11 R. This showed significant macrophages and histiocytes but no malignancy. However given his history there was concern about the possibility of malignancy therefore he underwent a second bronchoscopy on October 28, 2019. This did show a fungating mass at the orifice of the right upper lobe bronchus with complete occlusion of both airways. The right middle lobe and right lower lobe bronchi were examined up to a third subsegmental with no abnormality. A biopsy was obtained and did report positive for metastatic colorectal adenocarcinoma. Immunohistochemistry stains were positive for CK20 and CDX2. Mr. Khan was advised to pursue pallitave chemotherapy with FOLFOX Avastin. He began his first dose on November 16, 2019. Follow-up PET/CT from 02/18/2020 reports pulmonary nodules seen on the prior study were improved on the 02/18/2020 study. The index nodule in the right lower lobe that previously measured 2.7 x 1.8 cm with an SUV of 5.5 now measures 1.4 cm with an SUV of 3.2. The other right upper and left lung nodules are similarly improved. Increasing activity is present in the multiple FDG positive mediastinal nodes; as before, these are most consistent with sarcoidosis. These nodules are distributed in the right paratracheal, inferior right perihilar, subcarinal, prevascular and right hilar territories. The previously described right. Rectal node is unchanged in size but has an SUV of 4.2 up from 2.3 previously and consistent with recurrence. Rectal activity is prominent but is most likely physiologic. He has completed 7 cycles of FOLFIRI/Avastin. His last treatment was on 02/27/2020. His treatment has been on hold due to hypertension and severe headaches and nausea.And his hypertension being managed by PMD Plan: PROBLEMS ADDRESSED TODAY 1. Rectal cancer with metastasis to the lung and mediastinal adenopathy. He has completed 9 cycles of FOLFIRI and Avastin. He has had multiple delays in his treatment plan some due to noncompliance and some due to elevated blood pressure and severe headache. His blood pressure is now controlled and his headache has improved. He did have MRI of the brain which was negative. He resumed cycle 8 FOLFIRI Avastin on April 30, 2020. Cycle 9 was given on May 28, 2020. A. We will hold cycle 10 FOLFIRI Avastin today given that he has had persistent chest pain which is correlated with his treatment. He states it started on Thursday after treatment this time and today is his first day he has not had chest pain since his treatment. We will monitor his headache closely, if he has recurrent headache we could consider changing the Aloxi to Zofran if we can correlate the headache with administration of the Aloxi. He states he does have headache with his chest pain. B. Today's labs reviewed in detail and discussed with Mr. Khan and a copy was given to him. WBC 7.0, hemoglobin 12.7, platelets 286,000 ANC is 5000 potassium 3.7 random glucose 112 creatinine 0.7 LFTs are normal. C. We will refill his pain medication for chronic back and neck pain and now chest pain as well as rectal pain. Hydrocodone 10/325 mg 1 or 2 every 4 hours prn pain # 60 per written prescription. D. We will plan to see him back in 1 week with CBC CMP and CEA. He will be scheduled with at that time to review his cardiac stress test and determine further plan of care. E. I am very concerned about him receiving the Avastin as it is a VEGF and he is having persistent chest pain. It is hard to determine if this is angina or if this could be nerve related. F. He will be given Nitrostat 0.4 to try as needed when he is having chest pain to see if he notes any difference in the behavior of the chest pain at that time. G. If his cardiac stress test is negative we may need to consider follow-up scanning he did have PET CT imaging on 02/18/2020 but was showing interval improvement in the bilateral pulmonary nodules at that time. 2. Hypokalemia A. His hypokalemia from his May 14, 2020 visit has resolved as he is now compliant with his potassium supplements. His potassium level today was 3.7 3. Elevated prostate A. His PSA from May 28, 2020 was 1.41. B. Mr. Khan reports that he has been released from Dr. Martinez as he states his PSA is really good. 4. Chronic gastritis A. He states that he is not having any gastritis symptoms at this time. B. He reports that he is compliant with his omeprazole daily. C. He is advised he could try Mylanta or Tums/Rolaids when he is having the chest pain to see if this gives him any relief. 5. Follow-up plan. We will plan to see him back on June 21 after his stress test has been obtained. I have asked that he see for review of current problems and determine further plan of care. Mr. Khan has been encouraged to contact us in interim should questions or problems arise. Signed By: Arabella Galvez-, [facility] Stephan Singh MD <<Signature on File>>
== END 2020-06-19 07:00 | disposition home or self-care (01) ==
LOC: ONCMED 09:33
PROVIDERS: PCP Nurse Practitioner; Visit Provider Nurse Practitioner
DX: C19 Malignant neoplasm of rectosigmoid junction (principal); C61 Malignant neoplasm of prostate; C78.01 Secondary malignant neoplasm of right lung; C78.02 Secondary malignant neoplasm of left lung; K29.50 Unspecified chronic gastritis without bleeding; Z79.899 Other long term (current) drug therapy; Z92.21 Personal history of antineoplastic chemotherapy
CPT/HCPCS: 36415; 80053; 82378; 85025; 99215

== ENCOUNTER 2020-06-19 07:14 | Outpatient (CLI) | payer MEDICARE, MEDICAID, SELFPAY ==
--- NOTE | 2020-06-19 | USCV_ITS ---
Oswaldo Khan Age: 74 Gender: M : 1945 Exam Date: 06/19/2020 07:48 Ordering Phys: Master Savage M.D ([email or web address]) Technologist: Love Rubio Exam Location: [facility] [place] Indication: CP BP: 140 / 80 HR: 88 Rhythm: Sinus Technical Quality: Adequate MEASUREMENTS (Male / Female) Normal Values 2D ECHO LV Diastolic Diameter PLAX 5.3 cm 4.2 - 5.9 / 3.9 - 5.3 cm LV Systolic Diameter PLAX 2.7 cm LV Chamber Size 3.6 cm IVS Diastolic Thickness 1.3 cm 0.6 - 1.0 / 0.6 - 0.9 cm IVS Systolic Thickness 1.3 cm LVPW Diastolic Thickness 0.0 cm 0.6 - 1.0 / 0.6 - 0.9 cm LVPW Systolic Thickness 1.5 cm RV Chamber Size 2.3 cm LVOT Diameter 2.1 cm LV Ejection Fraction 2D Teich 80.4 % LV Ejection Fraction MOD 2C 51.7 % LV Ejection Fraction 2C AL 54.2 % LA Diameter 2.5 cm LA Width 2.6 cm LA Height 3.8 cm RA Width 2.8 cm RA Height 4.5 cm Aorta at Sinotubular Diameter 3.8 cm M-MODE LV Diastolic Diameter MM 4.8 cm 4.2 - 5.9 / 3.9 - 5.3 cm LV Systolic Diameter MM 3.6 cm LV Ejection Fraction MM Teich 49.4 % IVS Diastolic Thickness MM 1.8 cm 0.6 - 1.0 / 0.6 - 0.9 cm IVS Systolic Thickness MM 1.5 cm LVPW Diastolic Thickness MM 1.3 cm 0.6 - 1.0 / 0.6 - 0.9 cm LVPW Systolic Thickness MM 1.4 cm Aortic Annulus Diameter 4.3 cm LA Ao Ratio MM 0.7 MV E Point Septal Separation 0.7 cm DOPPLER AV Peak Velocity 134.0 cm/s LVOT Peak Velocity 110.0 cm/s AV Area Cont Eq vti 2.8 cm squared AV Area Cont Eq pk 2.7 cm squared MV Area PHT 8.1 cm squared Mitral E to A Ratio 0.8 MV E' Velocity 38.5 cm/s Mitral E to MV E' Ratio 7.9 Mitral E to LV E' Lateral Ratio 7.3 Mitral E to LV E' Septal Ratio 8.6 TR Peak Velocity 155.4 cm/s TR Peak Gradient 9.7 mmHg TR Mean Velocity 104.5 cm/s TR Mean Gradient 5.0 mmHg TR Velocity Time Integral 28.3 cm TV Peak E Velocity 56.0 cm/s Right Atrial Pressure 3.0 mmHg Pulmonary Artery Systolic Pressu 12.7 mmHg PV Peak Velocity 64.0 cm/s RV Acceleration Time 0.1 s RV Ejection Time 0.3 s RV AcT/ET 0.4 FINDINGS Left Ventricle Normal left ventricular size. LV systolic function is normal with EF of 55-60%. No regional wall motion abnormalities. Grade 1 diastolic dysfunction Right Ventricle The right ventricle is normal in size and function. Right Atrium The right atrium is normal in size. Left Atrium The left atrium is normal in size. Mitral Valve Structurally normal mitral valve without significant stenosis or prolapse. There is no mitral regurgitation. Aortic Valve Structurally normal aortic valve without significant sclerosis or stenosis. There is no aortic regurgitation. Tricuspid Valve Structurally normal tricuspid valve without significant stenosis or regurgitation. Insufficient TR jet to calculate RVSP Pulmonic Valve Structurally normal pulmonic valve without significant stenosis. There is no pulmonic regurgitation. Pericardium Normal pericardium without effusion. Aorta Aortic root is dilated CONCLUSIONS LV systolic function is normal with EF of 55-60% Grade 1 diastolic dysfunction No significant valvular heart disease is noted Aortic root is dilated No comparison studies are available Master Savage MD (Electronically Signed) Final Date: 24 June 2020 13:31 S
[2020-06-19 07:29] VITALS: BMI 26.8
--- NOTE | 2020-06-19 07:39 | ECG_ITS ---
[facility] Test Date: 2020-06-19 Pat Name: Oswaldo Khan Department: Room: Gender: Male Behavioral [facility] Rn: : 1945 Requested By: Master Savage Order Number: [id number] Lucia MD: Master Savage M.D. Interpretive Statements NAME OF STUDY: LEXISCAN SESTAMIBI STRESS TEST INDICATION: [Chest Pain, ] Procedure: At the baseline, the blood pressure was 136/73 mmHg, heart rate of 84 bpm. Electrocardiogram showed normal sinus rhythm, with normal ST-T waves. The Lexiscan was infused over a duration of 20 seconds. A total of 0.4 mg of Lexiscan was infused. The stress phase was continued for a total of 5 minutes. Heart rate at the end of stress phase was 95 bpm with a blood pressure of 181/69 mmHg. The EKG revealed sinus rhythm with no significant ST-T wave changes. Sestamibi was injected 20 seconds after the Lexiscan infusion. Blood pressure at the end of recovery phase was 175/73mmHg with a heart rate of 94 bpm. Conclusion: 1. Normal EKG response to Lexiscan infusion. 2. No Lexiscan induced chest pain or cardiac arrhythmia. 3. Hypertensive blood pressure and normal heart rate response. 4. Sestamibi/sestamibi perfusion scan pending; see separate report. Electronically Signed On 07-08-2020 17:32:10 CDT by Master Savage M.D. [id number]
--- NOTE | 2020-06-19 07:40 | NMCV_ITS ---
NM maira perf SPECT r/s* [id number] Oswaldo Khan Age: 74 Gender: M : 1945 Exam Date: 06/19/2020 07:40 Ordering Phys: Master Savage M.D ([email or web address]) Technologist: JULIO C Leonardo Exam Location: [facility] Indications: CHEST PAIN STRESS TEST [facility] IMAGE PROTOCOL Rest/Stress 1 Lexiscan Day Radiopharmaceutical Dose (mCi) Administration Site Administered by Rest: Tc-99m 10.7 IV JULIO C Leonardo Sestamibi Stress:Tc-99m 32.4 IV JULIO C Leonardo Sestamibi Rest: 19-Jun-2020 60 Discovery 630 Stress: 19-Jun-2020 30 Discovery 630 0.4mg Lexiscan. Images obtained in supine and prone position. SPECT RESULTS Technical Quality: Excellent Raw Data Analysis: Normal Image Corrections: No attenuation or motion correction applied Summed Stress Score: 0 Summed Rest Score: 6 Summed Difference Score: 0 PERFUSION FINDINGS There is small sized defect in the apical septal and apical inferior dove on rest that improved on stress. This is likely attenuation artifact. No reversible ischemia is seen FUNCTIONAL RESULTS (calculated via Gated SPECT) Stress Image LV EF (%): 65 Stress EDV (mL):81 TID: 1 Stress ESV (mL):28 FUNCTIONAL FINDINGS: There is normal left ventricular systolic function. IMPRESSIONS 1) Normal myocardial perfusion imaging with no evidence of ischemia 2) Normal LV systolic function Master Savage MD (Electronically Signed) Final Date: 19 June 2020 17:12 S
[2020-06-19] MEDS: regadenoson 0.4 Mg/5 ml Syringe IVP (10:00)
[2020-06-19 10:16] VITALS: BP 175/73; PULSE 96
== END 2020-06-19 07:15 | disposition home or self-care (01) ==
LOC: CDL 07:15
PROVIDERS: PCP Nurse Practitioner; Visit Provider Internal Medicine
DX: R07.9 Chest pain, unspecified (principal); I51.81 Takotsubo syndrome
CPT/HCPCS: 78452; 93017; 93306; A9500; J2785

== ENCOUNTER 2020-07-04 06:08 | Outpatient (RCR) | payer MEDICARE, MEDICAID, SELFPAY ==
[2020-07-04 09:58] LABS: Add Urine Microscopic? NO
[2020-07-04 10:06] LABS: Bilirubin Urine 1+ (Negative); Blood Urine Neg (Negative); Glucose Urine UA Norm (Normal); Ketones Urine Negative (Negative); Leukocyte Esterase Urine Negative (Negative); Nitrate Urine Negative (Negative); Protein Urine Neg (Negative); Urine Appearance Clear (CLEAR); Urine Color Yellow (Yellow); Urobilinogen Urine 1 mg/dL (Negative); pH Urine 5 (5-7)
[2020-07-04 10:09] LABS: Basophils # 0.1 10^3/uL (0.0-0.1); Basophils % 0.6 %; Eosinophils # 0.2 10^3/uL (0.0-0.8); Eosinophils % 1.1 %; Hematocrit 39.4 % (42.0-52.0); Hemoglobin 12.7 g/dL (11.7-16.6); Lymphocytes # 1.5 10^3/uL (0.8-4.8); Lymphocytes % 9.6 %; Mean Corpuscular HGB Conc 32.2 g/dL (30.0-36.0); Mean Corpuscular Hemoglobin 26.2 pg (28.0-34.0); Mean Corpuscular Volume 81.4 fL (80-94); Mean Platelet Volume 10.4 fL (7.4-10.4); Monocytes # 1.1 10^3/uL (0.2-0.9); Monocytes % 6.9 %; Neutrophils # 12.26 10^3/uL (1.8-7.7); Neutrophils % 81.1 %; Nucleated Red Blood Cells % 0 %; Platelet Count 247 10^3/cmm (130-400); Red Blood Count 4.84 10^6/uL (4.1-5.3); Red Cell Distribution Width 16.8 % (12.1-15.1); White Blood Count 15.1 10^3/uL (4.0-10.0)
[2020-07-04 10:21] LABS: Alanine Aminotransferase 12 U/L (0-41); Alkaline Phosphatase 119 IU/L (40-130); Anion Gap 15.7 (5-19); Aspartate Amino Transferase 14 U/L (0-40); Blood Urea Nitrogen 18 mg/dL (8-23); Calcium 9.2 mg/dL (8.5-10.5); Carbon Dioxide 25 mmol/L (22-29); Chloride 101 mmol/L (98-107); Globulin 2.7 g/dL (1.3-4.6); Glucose 150 mg/dL (65-115); Osmolality Calculated 291 mOsm/kg (285-295); Potassium 3.7 mmol/L (3.5-5.1); Sodium 138 mmol/L (136-145); Total Bilirubin 0.9 mg/dL (0.15-1.2); Total Protein 6.7 g/dL (6.6-8.7)
[2020-07-04 11:57] LABS: Carcinoembryonic Antigen 3.1 ng/mL (0.0-4.7)
--- NOTE | 2020-07-16 23:17 | ONC FU_ITS ---
[facility] Patient Note Patient: Oswaldo Khan Unit #: [id number]: 1945 Dictated By: Arabella GalvezDate of Visit: Jul 04, 2020 Onc MED Follow-Up/Prog Note Chief Complaint: Upper rectal carcinoma status post resection and elevated PSA level History of Present Illness: Mr. Khan is a 74-year-old gentleman with history of abdominal pain and rectal bleed underwent colonoscopy and was found to have a rectal mass. A biopsy was obtained and it confirmed adenocarcinoma. Mr Khan then underwent low anterior resection on 03/05/2017. The final pathology report showed invasive adenocarcinoma , tumor invades perirectal adipose and 1 out of 18 lymph nodes was positive with extranodal extension and no loss of nuclear expression of MMR protein . Mr Khan also has history of elevated PSA. On 03/12/2017 his PSA was 35.20. As per patient he has seen Dr. Sunil Martinez , urologist, who is following him and CT scan of abdomen pelvis done on 03/19/2017 showed some prominent retroperitoneal lymph nodes somewhat more prominent than in 2013 Mr Khan took combined chemoradiation for 3 days the first week but then accidentally pulled his [place] cath and sustained urethral injury. He was evaluated by Dr. Martinez and underwent cystoscopy exam and reinsertion of Mc[place]ur cath, during this time combined chemoradiation therapy was on hold. He resumed 4 weeks after . Patient was advised to take Xeloda daily for 5 days per week during radiation therapy. His Xeloda daily the days of radiation only was held few days due to persistent diarrhea. He concluded his chemoradiation on 11/03/2017. The diarrhea resolved at that time. Mr. Khan was advised to pursue adjuvant chemotherapy with FOLFOX. had a long discussion regarding the role of adjuvant chemotherapy. he agreed to get Port-A-Cath placement but then at the last minute he changed his mind. Since that time though, he has agreed to pursue the recommended adjuvant chemotherapy. He completed 2 cycles of modified FOLFOX as of 03/04/2018. At his 03/16/2018 appointment, he stated had been having increased abdominal pain and decreased energy. He stated that he did not complete the full 2 days of the fluorouracil pump last one and this he felt like it was making me feel pretty bad . CT scan of the abdomen was done on on 03/19/2018 show stable rectosigmoid anastomosis with no recurrent or adjacent adenopathy. Moderate diffuse constipation. At the patient's request and and his refusal to continue with 5-FU infusion, it was opted to change the chemotherapy plan of care to XELOX on 03/23/2018 and with the plan to give him 6 cycles. Mr. Khan is tolerated it well at this time. 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 He completed 5/6 cycles. At his request, Adjuvant chemotherapy with Xelox concluded on 07/05/2018. CT scan of abdomen pelvis done on 09/23/2018 showed no acute findings but 1.3 cm nodule in the right lower lobe of the lung. CT PET scan done on 11/06/2018 showed enlarged prostate with diffusely increase uptake Malignant appearing right lung nodules, most likely from colonic carcinoma Malignant mediastinal lymph nodes, most likely from colonic carcinoma No evidence for local prostate metastatic nodes. Normal activity at rectal anastomosis. Mr Khan had followup in August [address] Esquivel, library science professor. A bronchoscopy was obtained and Mr Khan was diagnosed with sarcoidosis. This was treated with some success but follow-up CT scan of chest done on August 30, 2019 showed evidence of interval progression of disease with bilateral pulmonary nodules. The largest nodule in the right lower lobe posteriorly and right suprahilar with narrowing of right upper lobe bronchus and numerous additional new and progressive pulmonary nodules throughout both lungs right hilar lymphadenopathy. The patient underwent bronchoscopy and endobronchial ultrasound-guided transbronchial needle aspiration of station 11 R, showed significant macrophages and histiocytes but no malignancy. but there was a concern about possibility of malignancy so patient underwent second bronchoscopy on October 28, 2019 which showed a fungating mass was seen at the orifice of right upper lobe bronchus with complete occlusion of airways. The right middle lobe and right lower lobe bronchi were examined up to third subsegmental with no abnormality. Biopsy was obtained came back positive for metastatic colorectal adenocarcinoma as immunohistochemistry stain were positive for CK20 and CDX2. Mr Khan was started on systemic chemotherapy with a Avastin/FOLFIRI on November 16, 2019. He has tolerated it well thus far. [facility] sequencing was ordered and report came back on December 19, 2019 showed HER-2/peggy negative and says it was not possible to calculate tumor mutational burden and MSI/MMR for the sample because the sequencing data did not reach the minimum depth of coverage required to provide a result on these biomarkers. Follow-up PET/CT from 02/18/2020 reports pulmonary nodules seen on the prior study were improved on the 02/18/2020 study. The index nodule in the right lower lobe that previously measured 2.7 x 1.8 cm with an SUV of 5.5 now measures 1.4 cm with an SUV of 3.2. The other right upper and left lung nodules are similarly improved. Increasing activity is present in the multiple FDG positive mediastinal nodes; as before, these are most consistent with sarcoidosis. These nodules are distributed in the right paratracheal, inferior right perihilar, subcarinal, prevascular and right hilar territories. The previously described right. Rectal node is unchanged in size but has an SUV of 4.2 up from 2.3 previously and consistent with recurrence. Rectal activity is prominent but is most likely physiologic. His last treatment was on 02/27/2020. As treatment has been on hold due to elevated blood pressure his blood pressure has been 195/110 last visit and is 189/104 today despite increasing his lisinopril to 10 mg daily.Continued with amlodipine 5 mg p.o. daily And was also complaining of headaches so MRI scan of the brain was ordered to rule out brain mets which was done on April 03, 2020 showed no evidence of metastatic disease to brain and no other acute abnormality seen Mr Khan has been noncompliant with his chemotherapy as he has skipped many scheduled chemotherapy treatments in the past. An example of his most recent noncompliance; his chemo was given on February 27, 2020 and he did return to the office until April 13, 2020, at that time he was scheduled for chemotherapy on April 16, 2020, but patient did not come. He did eventually resume chemotherapy on April 30, 2020. His last chemotherapy prior to April 30, 2020 was February 27, 2020. Mr. Khan is here today for follow-up and consideration of cycle 10 FOLFIRI/Avastin. His last chemotherapy with 5-FU irinotecan and Avastin was given on May 28, 2020. He is currently having cardiac work-up with . He has had a stress test that is negative for cardiac disease. He is scheduled for CT a of the chest later this week for evaluation of aorta. He has had some return of his headache. He states is not near so bad as before but is slowly creeping back up on him. He denies any heartburn since taking the Prilosec. He denies any chest pain he states for least 3 weeks. He states he has had more shortness of breath since his last treatment. He denies any hemoptysis. Has had no hematuria or hematochezia. He denies any new concerns. He states he is still short of breath which he thinks may be some worse but states he is still smoking. He states he just cannot quit the cigarettes. He has been using an inhaler off and on to try to help with his shortness of breath but it gives him headache and then the previous headache start flaring back up again. He is using Tylenol and his pain medication for his headaches and chronic back and rectal pain. He denies any hemoptysis. He denies any fever or chills. His ECOG is 2. Past Medical History: Chronic obstructive pulmonary disease Gastroesophageal reflux Past Surgical History: Port placement - dr. allen TRUSP / biopsy in 2017 Appendectomy in 2016 Cholecystectomy in 2016 Liver wedge biopsy in 2017 Hernia repair in 2009 Allergies: No Known Allergies. Medications: Flomax 1 Tablet (of 0.4 mg) Capsule Oral daily Ibuprofen 3 Tablet (of 200 mg) Oral daily PRN Lisinopril 1 Tablet (of 25 ) Oral daily PriLOSEC Capsule Delayed Release Oral daily Family History: Mr. Khan's mother at age 62: diabetes, and heart attack, and pneumonia. Mr. Khan's father at age 74: Colon Cancer. Mr. Khan has 1 brother who is alive: heart disease. Social History: Mr. Khan is and he is retired. He is a daily smoker who has smoked 1.0 pack/day for 31 years. He has no history of drinking. Review Of Symptoms: Vital Signs: Performed on Jul 04, 2020 10:31 Height - 70.00 in Weight - 187.0 lbs (LOW) BSA - 2.03 sq.m BMI - 26.83 Temperature - 96.8 F (LOW) Pulse - 111 /min (HIGH) Respiration - 19 /min BP - 112/68 mm(hg) O2 Sat - 97 % Pain - 0,2 - Ambulatory/capable of all self-care, unable to perform any work activities. Up and about more than 50% of waking hours. (ECOG) Physical Examination: Constitutional Alert, oriented, no acute distress. Skin pink, warm and dry. Hard of hearing- no worse than his last visit but is severe. Head Normocephalic; atraumatic. Eyes Conjunctivae and sclerae are clear and without icterus. Pupils are reactive and equal. Neck Supple without masses or thyromegaly. No jugular venous distension. Hematologic/Lymphatic No petechiae or purpura. No tender or palpable lymph nodes in the cervical or supraclavicular area. Respiratory Lungs are clear to auscultation without rhonchi or wheezing. Cardiovascular Regular rate and rhythm of heart without murmurs,clicks, gallops or rubs. Abdomen Non-tender, non-distended or masses, ascites. Good bowel sounds noted in all quads. No guarding or rebound tenderness. Back/Spine Non-tender to palpation. Extremities No visible deformities, no cyanosis, clubbing or edema. Musculoskeletal No tenderness or swelling, normal range of motion without obvious weakness. Integumentary No rashes or lesions. Neurologic No sensory or motor deficits, normal cerebellar function, normal gait. Psychiatric Alert and oriented times three. Coherent speech. Verbalizes understanding of our discussions today. Laboratory:Test performed on Jul 04, 2020 09:08 Ua Color Yellow Ua Appearance Clear Ua Glucose Norm Ua Bilirubin 1+ Ua Ketones Negative Ua Specific [facility] 1.020 Ua Blood Neg Ua pH 5 Ua Protein Neg Ua Urobilinogen 1 mg/dL Ua Nitrites Negative Ua Leukocyte Esterase Negative Test performed on Jul 04, 2020 09:05 Sodium 138 mmol/L Potassium 3.7 mmol/L Chloride 101 mmol/L CO2 25 mmol/L Anion Gap 15.7 BUN 18 mg/dL Creatinine 0.8 mg/dL Cr Clearance (Est) 104.4200 mL/min Glucose 150 mg/dL Osmolality - Calculated 291 mOsm/kg Calcium 9.2 mg/dL Protein, Total 6.7 g/dL Albumin 4.0 g/dL Globulin 2.7 g/dL Bilirubin, Total 0.9 mg/dL ALT (SGPT) 12 U/L AST (SGOT) 14 U/L Alkaline Phosphatase 119 IU/L WBC 15.1 10 3/uL RBC 4.84 10 6/uL HGB 12.7 g/dL HCT 39.4 % MCV 81.4 fL MCH 26.2 pg MCHC 32.2 g/dL RDW 16.8 % Platelet Count 247 10 3/cmm MPV 10.4 fL Neutrophils 12.26 10 3/uL Lymphocytes 1.5 10 3/uL Monocytes 1.1 10 3/uL Eosinophils 0.2 10 3/uL Basophils 0.1 10 3/uL Neutrophil % 81.1 % Lymphocyte % 9.6 % Monocyte % 6.9 % Eosinophil % 1.1 % Basophils % 0.6 % NRBC % 0 % CEA 3.1 ng/mL Test performed on May 28, 2020 08:56 PSA 1.410 ng/mL Test performed on Jan 11, 2020 00:00 Manual Diff Cancelled via OM: Cancelled in Connected System Impression: Invasive adenocarcinoma of upper rectum status post APR on 03/05/2017 final pathology showed tumor size 5.5 x 5.4 cm low-grade, tumor invades perirectal adipose p T3, lymphovascular invasion present, no perineural invasion seen 1 out of 18 positive lymph nodes N1a , extranodal extension present N1 stage IIIA No loss of nuclear expression of MMR protein Elevated PSA, on 03/12/2017 it was 35.20 with prostate enlargement, being followed by Dr. Martinez. s/p chemoradiation with Xeloda as chemosensitizer. till 11/03/17 discussed with patient regarding the role of adjuvant chemotherapy in stage IIIa rectal cancer, as literature has shown adjuvant chemotherapy improves disease-free survival. Patient has been reluctant to consider chemotherapy because of severe diarrhea during chemoradiation for rectal CA. He was assured that we will adjust/modify his adjuvant chemotherapy to make it tolerable. Patient, now agreed to get port placement and for adjuvant chemotherapy modified FOLFOX every 2 weeks ???12. All the side effect and possible benefits were discussed in detail again and patient expressed understanding. Mr Khan agreed. He was referred back to Dr. Merritt for Port-A-Cath placement and began his first cycle of FOLFOX on 02/09/2018 .Patient developed abdominal pain for which he underwent CT scan of abdomen on 03/19/2018 showed moderate constipation, and stable rectosigmoid anastomosis with no recurrent mass or adjacent adenopathy and bilateral lower lobe pulmonary nodules are stable since 02/03/2017. No evidence of metastatic disease elsewhere. Following day patient had large bowel movement and since then no more abdominal pain. Patient expressed intolerance to 5-FU infusion chemotherapy and also consider it inconvenient so requesting Xeloda pills instead of 5-FU infusion. His treatment plan was changed to XELOX beginning 03/23/2018. He has tolerated it well thus far. He completed 5 of the planned [address] PET scan done on 11/06/2018 showed prostate is enlarged, measuring 6 cm in diameter with diffusely increased FDG activity, most intense in the central prostate. Normal tracer activity at the rectal anastomosis There are 2 pulmonary nodules in the right lower lobe and one in the right upper lobe, the index nodule in the right lower lobe measuring 1.1 x 1.6 cm with SUV of 3.5. Most consistent with metastatic disease, likely from colonic primary. Multiple hypermetabolic mediastinal lymph nodes are present, consistent with metastatic disease, in the inferior right perihilar 1.9 cm, 5.2 SUV. Subcarinal, prevascular, right paratracheal, 1.9 cm, 6.8 SUV. Right hilar territories. Subcentimeter nodes are also noted in the superior right paratracheal region. Too small to characterize. Mr. Khan had established care with Dr. Esquivel in pulmonology. A bronchoscopy was performed and he was found to have sarcoidosis which was treated with some success however a follow-up CT of the chest done on August 29, 2019 showed interval progression of disease with bilateral pulmonary nodules with the largest nodule in the right lower lobe posteriorly. There was activity in the right suprahilar with narrowing of the right upper lobe bronchus and numerous additional new and progressive pulmonary nodules throughout both lungs. There was right hilar lymphadenopathy. He underwent another bronchoscopy and endobronchial ultrasound-guided transbronchial needle aspiration of station 11 R. This showed significant macrophages and histiocytes but no malignancy. However given his history there was concern about the possibility of malignancy therefore he underwent a second bronchoscopy on October 28, 2019. This did show a fungating mass at the orifice of the right upper lobe bronchus with complete occlusion of both airways. The right middle lobe and right lower lobe bronchi were examined up to a third subsegmental with no abnormality. A biopsy was obtained and did report positive for metastatic colorectal adenocarcinoma. Immunohistochemistry stains were positive for CK20 and CDX2. Mr. Khan was advised to pursue pallitave chemotherapy with FOLFOX Avastin. He began his first dose on November 16, 2019. Follow-up PET/CT from 02/18/2020 reports pulmonary nodules seen on the prior study were improved on the 02/18/2020 study. The index nodule in the right lower lobe that previously measured 2.7 x 1.8 cm with an SUV of 5.5 now measures 1.4 cm with an SUV of 3.2. The other right upper and left lung nodules are similarly improved. Increasing activity is present in the multiple FDG positive mediastinal nodes; as before, these are most consistent with sarcoidosis. These nodules are distributed in the right paratracheal, inferior right perihilar, subcarinal, prevascular and right hilar territories. The previously described right. Rectal node is unchanged in size but has an SUV of 4.2 up from 2.3 previously and consistent with recurrence. Rectal activity is prominent but is most likely physiologic. He has completed 9 cycles of FOLFIRI/Avastin. His last treatment was on 02/27/2020. His treatment had been on hold due to hypertension and severe headaches and nausea. His hypertension being managed by PMD. Plan: PROBLEMS ADDRESSED TODAY 1. Rectal cancer with metastasis to the lung and mediastinal adenopathy. He has completed 9 cycles of FOLFIRI and Avastin. He has had multiple delays in his treatment plan some due to noncompliance and some due to elevated blood pressure and severe headache. His blood pressure is now controlled but his headache has started to recurr.. He did have MRI of the brain which was negative. He resumed cycle 8 FOLFIRI Avastin on April 30, 2020. Cycle 9 was given on May 28, 2020. A. We will hold cycle 10 FOLFIRI Avastin today given that he has had increased shortess of breath and fatigue. He is scheduled for a chest CTA per Dr Thao later this week. We will monitor his headache closely, if he has recurrent headache we could consider changing the Aloxi to Zofran if we can correlate the headache with administration of the Aloxi. He states he does have headache with his chest pain. B. Today's labs reviewed in detail and discussed with Mr. Khan and a copy was given to him. WBC 15.1, hemoglobin 12.7, platelets 247,000 ANC is 10,400 potassium 3.7, creatinine 0.8 and LFTs are normal. C. He states he is more short of breath but is still smoking. He denies any chest pain for 3 weeks. 2. Hypokalemia A. His hypokalemia from his May 14, 2020 visit has resolved as he is now compliant with his potassium supplements. His potassium level today was 3.7 3. Elevated prostate A. His PSA from May 28, 2020 was 1.41. B. Mr. Khan reports that he has been released from Dr. Martinez as he states his PSA is really good. 4. Chronic gastritis A. He states that he is not having any gastritis symptoms at this time. B. He reports that he is compliant with his omeprazole daily. C. He is advised he could try Mylanta or Tums/Rolaids when he is having the chest pain to see if this gives him any relief. 5. Follow-up plan. A. We will plan to see him back in 1 week as he is having a CT per Dr. Thao this week. I believe that it is a CTA to assess his aorta per Dr. Thao's note. Hopefully will get some idea how his lung nodules are doing as well and can determine further plan of care from there. If we cannot get any information from the CTA of the chest we will plan to do further imaging as indicated depending on shortness of breath. B. Mr. Khan has been encouraged to contact us in interim should questions or problems arise. Signed By: Arabella Galvez-, AOCNP Paula Singh MD <<Signature on File>>
== END 2020-07-04 23:59 | disposition home or self-care (01) ==
LOC: ONCMED 06:08
PROVIDERS: PCP Nurse Practitioner; Visit Provider Nurse Practitioner
DX: C20 Malignant neoplasm of rectum (principal); C77.1 Secondary and unspecified malignant neoplasm of intrathoracic lymph nodes; C78.01 Secondary malignant neoplasm of right lung; R51.9 Headache, unspecified; R06.02 Shortness of breath; R53.83 Other fatigue; D86.0 Sarcoidosis of lung; N40.0 Benign prostatic hyperplasia without lower urinary tract symptoms; E87.6 Hypokalemia; I10 Essential (primary) hypertension; Z51.81 Encounter for therapeutic drug level monitoring; Z79.899 Other long term (current) drug therapy; K29.50 Unspecified chronic gastritis without bleeding; F17.210 Nicotine dependence, cigarettes, uncomplicated; Z91.19 Patient's noncompliance with other medical treatment and regimen
CPT/HCPCS: 36415; 80053; 81003; 82378; 85025; 99214

== ENCOUNTER 2020-07-05 08:36 | Outpatient (CLI) | payer MEDICARE, MEDICAID, SELFPAY ==
--- NOTE | 2020-07-05 08:52 | CT_ITS ---
WS: [id number] CTA THORACIC TECHNIQUE: Contrast enhanced CTA of the thoracic aorta with coronal and sagittal reformatted images a nd maximum intensity projection (MIP) images. CLINICAL INFORMATION: I71.2 - Thoracic aortic aneurysm, without rupture COMPARISON: CT chest August 30, 2019. PET/CT February 2020 and September 2019 DLP: 1417.[address] scans at [facility] use at least one of these dose optimization techniques: automat ed exposure control; mA and/or kV adjustment per patient size (includes targeted exams where dose is matched to clinical indication); or iterative reconstruction. FINDINGS: Proximal main pulmonary arteries are normal. Proximal subsegmental pulmonary arteries are normal. Nor mal caliber thoracic aorta. Ascending thoracic aorta measures 3.4 CM. Normal caliber aortic arch. Tian cending thoracic aorta is normal caliber. Normal caliber upper abdominal aorta. 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 Prominent anterior mediastinal and peribronchial lymph nodes are similar in appearance. Calcified AP window lymph nodes. Moderate chronic emphysematous changes. Pulmonary nodules in the right lower lobe previous described are stable the largest measuring approximately 11 mm. Additional smaller subcenti meter nodules in the left lower lobe are unchanged. New patchy interstitial and tree-in-bud opacities in the right upper lobe. This is nonspecific but ma y be infectious or inflammatory in etiology versus related to patient's sarcoid. Some of this may rep resent postobstructive pneumonia with narrowing of the right upper lobe bronchus. Mild thoracic kyphosis. Adrenal glands are normal. Prior cholecystectomy. CT/CT angio chest [id number] IMPRESSION: 1. Normal caliber thoracic aorta. Ascending thoracic aorta measures approximat daron 3.4 CM. 2. Normal descending thoracic aorta and upper abdominal aorta. 3. Previously described right suprahilar mass with narrowing of the right main stem bronchus is stable since the prior PET/CT considering differences in techn ique. This can be followed up with PET CT for more detailed comparison. 4. New patchy groundglass and tree-in-bud infiltrates in the right upper lobe likely infectious or inflammatory. This may be post obstructive in etiology con sidering narrowing of the right mainstem bronchus. 5. Previously described bilateral lower lobe nodules right greater than left a ppear stable since the prior PET/CT.
[2020-07-05] MEDS: iohexol 350 mg/mL 100 mL Btl IV (09:50)
== END 2020-07-05 08:37 | disposition home or self-care (01) ==
LOC: RADWPI 08:43
PROVIDERS: PCP Nurse Practitioner; Visit Provider Internal Medicine
DX: I71.2 Thoracic aortic aneurysm, without rupture (principal); R91.8 Other nonspecific abnormal finding of lung field
CPT/HCPCS: 71275; Q9967

== ENCOUNTER 2020-08-02 05:33 | Outpatient (RCR) | payer MEDICARE, MEDICAID, SELFPAY ==
[2020-07-17 10:06] LABS: Basophils # 0.1 10^3/uL (0.0-0.1); Basophils % 1.1 %; Eosinophils # 0.3 10^3/uL (0.0-0.8); Eosinophils % 3.1 %; Hematocrit 42.8 % (42.0-52.0); Hemoglobin 13.8 g/dL (11.7-16.6); Lymphocytes # 1.5 10^3/uL (0.8-4.8); Lymphocytes % 15.5 %; Mean Corpuscular HGB Conc 32.2 g/dL (30.0-36.0); Mean Corpuscular Hemoglobin 26.1 pg (28.0-34.0); Mean Corpuscular Volume 81.1 fL (80-94); Mean Platelet Volume 9.4 fL (7.4-10.4); Monocytes # 0.5 10^3/uL (0.2-0.9); Monocytes % 5.4 %; Neutrophils # 7.33 10^3/uL (1.8-7.7); Neutrophils % 74.7 %; Nucleated Red Blood Cells % 0 %; Platelet Count 300 10^3/cmm (130-400); Red Blood Count 5.28 10^6/uL (4.1-5.3); Red Cell Distribution Width 16.8 % (12.1-15.1); White Blood Count 9.8 10^3/uL (4.0-10.0)
[2020-07-17 10:25] LABS: Alanine Aminotransferase 22 U/L (0-41); Albumin Level 4.3 g/dL (3.5-5.2); Alkaline Phosphatase 106 IU/L (40-130); Anion Gap 12.9 (5-19); Aspartate Amino Transferase 16 U/L (0-40); Blood Urea Nitrogen 17 mg/dL (8-23); Calcium 9.6 mg/dL (8.5-10.5); Carbon Dioxide 27 mmol/L (22-29); Chloride 101 mmol/L (98-107); Globulin 2.8 g/dL (1.3-4.6); Glucose 129 mg/dL (65-115); Osmolality Calculated 287 mOsm/kg (285-295); Potassium 3.9 mmol/L (3.5-5.1); Sodium 137 mmol/L (136-145); Total Bilirubin 0.3 mg/dL (0.15-1.2); Total Protein 7.1 g/dL (6.6-8.7)
[2020-07-24] MEDS: alteplase 1 mg/mL SDV 2 mL 2 MG IV ×2 (12:23→13:43)
[2020-07-24 12:28] LABS: Basophils # 0.1 10^3/uL (0.0-0.1); Eosinophils # 0.3 10^3/uL (0.0-0.8); Eosinophils % 3.2 %; Hematocrit 40.1 % (42.0-52.0); Lymphocytes # 1.5 10^3/uL (0.8-4.8); Lymphocytes % 18.9 %; Mean Corpuscular HGB Conc 32.4 g/dL (30.0-36.0); Mean Corpuscular Hemoglobin 26.5 pg (28.0-34.0); Mean Corpuscular Volume 81.7 fL (80-94); Mean Platelet Volume 9.5 fL (7.4-10.4); Monocytes # 0.6 10^3/uL (0.2-0.9); Monocytes % 7.6 %; Neutrophils # 5.34 10^3/uL (1.8-7.7); Nucleated Red Blood Cells % 0 %; Platelet Count 255 10^3/cmm (130-400); Red Blood Count 4.91 10^6/uL (4.1-5.3); Red Cell Distribution Width 16.8 % (12.1-15.1); White Blood Count 7.7 10^3/uL (4.0-10.0)
[2020-07-24 13:06] LABS: Alanine Aminotransferase 21 U/L (0-41); Albumin Level 4.1 g/dL (3.5-5.2); Alkaline Phosphatase 89 IU/L (40-130); Aspartate Amino Transferase 13 U/L (0-40); Blood Urea Nitrogen 16 mg/dL (8-23); Carbon Dioxide 26 mmol/L (22-29); Chloride 101 mmol/L (98-107); Globulin 2.5 g/dL (1.3-4.6); Glucose 126 mg/dL (65-115); Osmolality Calculated 285 mOsm/kg (285-295); Sodium 136 mmol/L (136-145); Total Bilirubin 0.2 mg/dL (0.15-1.2); Total Protein 6.6 g/dL (6.6-8.7)
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
--- NOTE | 2020-08-07 09:06 | ONC FU_ITS ---
follow up note Patient: Oswaldo Khan Unit #: [id number]: 1945 Dicatated By: Paula Singh M.D.Date of Visit:Aug 02, 2020 Onc Med Follow-up/Prog Note History of Present Illness: Mr. Khan is a 74-year-old gentleman with history of abdominal pain and rectal bleed underwent colonoscopy and was found to have a rectal mass. A biopsy was obtained and it confirmed adenocarcinoma. Mr Khan then underwent low anterior resection on 03/05/2017. The final pathology report showed invasive adenocarcinoma , tumor invades perirectal adipose and 1 out of 18 lymph nodes was positive with extranodal extension and no loss of nuclear expression of MMR protein . Mr Khan also has history of elevated PSA. On 03/12/2017 his PSA was 35.20. As per patient he has seen Dr. Sunil Martinez , urologist, who is following him and CT scan of abdomen pelvis done on 03/19/2017 showed some prominent retroperitoneal lymph nodes somewhat more prominent than in 2013 Mr Khan took combined chemoradiation for 3 days the first week but then accidentally pulled his [place] cath and sustained urethral injury. He was evaluated by Dr. Martinez and underwent cystoscopy exam and reinsertion of [place] cath, during this time combined chemoradiation therapy was on hold. He resumed 4 weeks after . Patient was advised to take Xeloda daily for 5 days per week during radiation therapy. His Xeloda daily on the days of radiation only was held for a few days due to persistent diarrhea. He concluded his chemoradiation on 11/03/2017. The diarrhea resolved at that time. Mr. Khan was advised to pursue adjuvant chemotherapy with FOLFOX. had a long discussion regarding the role of adjuvant chemotherapy. Mr Khan agreed to get Port-A-Cath placement but then at the last minute, he changed his mind. Since that time though, he has agreed to pursue the recommended adjuvant chemotherapy. He did agree to port placement. He completed 2 cycles of modified FOLFOX as of 03/04/2018. At his 03/16/2018 appointment, he stated had been having increased abdominal pain and decreased energy. He stated that he did not complete the full 2 days of the fluorouracil pump last one and this he felt like it was making me feel pretty bad . CT scan of the abdomen was done on on 03/19/2018 show stable rectosigmoid anastomosis with no recurrent or adjacent adenopathy. Moderate diffuse constipation. At the patient's request and his refusal to continue with 5-FU infusion, it was opted to change the chemotherapy plan of care to XELOX on 03/23/2018 and with the plan to give him 6 cycles. Mr. Khan had tolerated it well. 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 He completed 5/6 cycles. At his request, Adjuvant chemotherapy with Xelox concluded on 07/05/2018. CT scan of abdomen pelvis done on 09/23/2018 showed no acute findings but 1.3 cm nodule in the right lower lobe of the lung. CT PET scan done on 11/06/2018 showed enlarged prostate with diffusely increase uptake Malignant appearing right lung nodules, most likely from colonic carcinoma Malignant mediastinal lymph nodes, most likely from colonic carcinoma No evidence for local prostate metastatic nodes. Normal activity at rectal anastomosis. Mr Khan had followup in August [address] Esquivel, hospital intern. A bronchoscopy was obtained and Mr Khan was diagnosed with sarcoidosis. This was treated with some success but follow-up CT scan of chest done on August 30, 2019 showed evidence of interval progression of disease with bilateral pulmonary nodules. The largest nodule in the right lower lobe posteriorly and right suprahilar with narrowing of right upper lobe bronchus and numerous additional new and progressive pulmonary nodules throughout both lungs right hilar lymphadenopathy. The patient underwent bronchoscopy and endobronchial ultrasound-guided transbronchial needle aspiration of station 11 R, showed significant macrophages and histiocytes but no malignancy. but there was a concern about possibility of malignancy so patient underwent second bronchoscopy on October 28, 2019 which showed a fungating mass was seen at the orifice of right upper lobe bronchus with complete occlusion of airways. The right middle lobe and right lower lobe bronchi were examined up to third subsegmental with no abnormality. Biopsy was obtained came back positive for metastatic colorectal adenocarcinoma as immunohistochemistry stain were positive for CK20 and CDX2. Mr Khan was started on systemic chemotherapy with a Avastin/FOLFIRI on November 16, 2019. Next generation/gene sequencing was ordered and on December 19, 2019, it reported HER-2/peggy negative and says it was not possible to calculate tumor mutational burden and MSI/MMR for the sample because the sequencing data did not reach the minimum depth of coverage required to provide a result on these biomarkers. Follow-up PET/CT from 02/18/2020 reports pulmonary nodules seen on the prior study were improved on the 02/18/2020 study. The index nodule in the right lower lobe that previously measured 2.7 x 1.8 cm with an SUV of 5.5 now measures 1.4 cm with an SUV of 3.2. The other right upper and left lung nodules are similarly improved. Increasing activity is present in the multiple FDG positive mediastinal nodes; as before, these are most consistent with sarcoidosis. These nodules are distributed in the right paratracheal, inferior right perihilar, subcarinal, prevascular and right hilar territories. The previously described right. Rectal node is unchanged in size but has an SUV of 4.2 up from 2.3 previously and consistent with recurrence. Rectal activity is prominent but is most likely physiologic. At that time, his last treatment was on 02/27/2020. As treatment had been on hold due to elevated blood pressure his blood pressure has been 195/110 last visit and is 189/104 today despite increasing his lisinopril to 10 mg daily.Continued with amlodipine 5 mg p.o. daily He was also complaining of sigificant headaches, so an MRI scan of the brain was ordered to rule out brain mets. The MRI was done on April 03, 2020 and showed no evidence of metastatic disease to brain and no other acute abnormality seen. Mr Khan has been noncompliant with his chemotherapy as he has skipped many scheduled chemotherapy treatments in the past. An example of his most recent noncompliance; his chemo was given on February 27, 2020 and he did return to the office until April 13, 2020, at that time he was scheduled for chemotherapy on April 16, 2020, but patient did not come. He did eventually resume chemotherapy on April 30, 2020. His last chemotherapy prior to April 30, 2020 was February 27, 2020. His last chemotherapy since April 30, 2020 was on May 28, 2020. He has missed his appointment for several reasons on his part such as just did not feel like coming???sick at stomach , he did realize he was getting chemotherapy that day and had not planned accordingly, etc. For his visit today his last chemotherapy was given on May 28, 2020. His last chemotherapy with 5-FU irinotecan and Avastin was given on May 28, 2020. He has had cardiac work-up with [facility]. He has had a stress test that is negative for cardiac disease. Follow-up CT PET scan done on July 28, 2020 showed the lateral right lower lobe nodule demonstrated ongoing positive response to therapy, now subcentimeter in size, with minimal FDG activity. The extensive mediastinal adenopathy seen previously now minimally FDG positive, with exception of the right hilar node which is now has an SUV of 6, down from 13.6 previously. The right perirectal node has SUV of 3.4 and is unchanged in size, indicating stable disease. No new lesion seen. came For follow-up, denies any specific complaints, except off and on frontal headaches, he was given oral antibiotic for presumed sinusitis with that his headaches did improve some and recently done CT scan of head was unremarkable. Also complaining of progressive shortness of breath, still smoking about pack a day. Patient is not too keen to continue systemic chemotherapy as, he started feeling better slowly gradually and last chemotherapy dose was given on May 28, 2020., No peripheral numbness, no fever chills, no nausea or vomiting, no diarrhea constipation, patient is here to discuss his CT PET scan finding and based on that he will make further decision whether to continue systemic therapy or not ,knowing the risk versus benefits associated with systemic therapy Medications: Flomax 1 Tablet (of 0.4 mg) Capsule Oral daily, Ibuprofen 3 Tablet (of 200 mg) Oral daily PRN, Lisinopril 1 Tablet (of 25 ) Oral daily, PriLOSEC Capsule Delayed Release Oral daily Allergies: No Known Allergies. Review of Systems: Review of Systems is not available for this patient. Vital Signs: Performed on Aug 02, 2020 08:46 Height - 70.00 in Weight - 190.6 lbs (HIGH) BSA - 2.05 sq.m BMI - 27.35 Temperature - 97.0 F (LOW) Pulse - 81 /min Respiration - 18 /min BP - 140/84 mm(hg) O2 Sat - 96 % Pain - 0 Fatigue - 5 Performance Status: 1 - No physically strenuous activity, but ambulatory and able to carry out light or sedentary work (e.g. office work, light house work). (ECOG) Physical Examination: ENMT - No mouth sores, no thrush, no jaundice, no cervical lymphadenopathy, Respiratory - Lungs are clear to auscultation , Cardiovascular - Regular rate and rhythm of heart, Abdomen - Soft, bowel sounds present, Extremities - Trace edema bilaterally. Lab/Imaging: Test performed on Jul 24, 2020 12:15 Sodium 136 mmol/L Potassium 4.0 mmol/L Chloride 101 mmol/L CO2 26 mmol/L Anion Gap 13.0 BUN 16 mg/dL Creatinine 0.6 mg/dL Cr Clearance (Est) 139.2300 mL/min Glucose 126 mg/dL Osmolality - Calculated 285 mOsm/kg Calcium 9.0 mg/dL Protein, Total 6.6 g/dL Albumin 4.1 g/dL Globulin 2.5 g/dL Bilirubin, Total 0.2 mg/dL ALT (SGPT) 21 U/L AST (SGOT) 13 U/L Alkaline Phosphatase 89 IU/L WBC 7.7 10 3/uL RBC 4.91 10 6/uL HGB 13.0 g/dL HCT 40.1 % MCV 81.7 fL MCH 26.5 pg MCHC 32.4 g/dL RDW 16.8 % Platelet Count 255 10 3/cmm MPV 9.5 fL Neutrophils 5.34 10 3/uL Lymphocytes 1.5 10 3/uL Monocytes 0.6 10 3/uL Eosinophils 0.3 10 3/uL Basophils 0.1 10 3/uL Neutrophil % 69.0 % Lymphocyte % 18.9 % Monocyte % 7.6 % Eosinophil % 3.2 % Basophils % 1.0 % NRBC % 0 % Test performed on Jul 04, 2020 09:08 Ua Color Yellow Ua Appearance Clear Ua Glucose Norm Ua Bilirubin 1+ Ua Ketones Negative Ua Specific [place] 1.020 Ua Blood Neg Ua pH 5 Ua Protein Neg Ua Urobilinogen 1 mg/dL Ua Nitrites Negative Ua Leukocyte Esterase Negative Test performed on Jul 04, 2020 09:05 CEA 3.1 ng/mL Test performed on May 28, 2020 08:56 PSA 1.410 ng/mL Impression: Invasive adenocarcinoma of upper rectum status post APR on 03/05/2017 final pathology showed tumor size 5.5 x 5.4 cm low-grade, tumor invades perirectal adipose p T3, lymphovascular invasion present, no perineural invasion seen 1 out of 18 positive lymph nodes N1a , extranodal extension present N1 stage IIIA No loss of nuclear expression of MMR protein Elevated PSA, on 03/12/2017 it was 35.20 with prostate enlargement, being followed by Dr. Martinez. s/p chemoradiation with Xeloda as chemosensitizer. till 11/03/17 discussed with patient regarding the role of adjuvant chemotherapy in stage IIIa rectal cancer, as literature has shown adjuvant chemotherapy improves disease-free survival. Patient has been reluctant to consider chemotherapy because of severe diarrhea during chemoradiation for rectal CA. He was assured that we will adjust/modify his adjuvant chemotherapy to make it tolerable. Patient, now agreed to get port placement and for adjuvant chemotherapy modified FOLFOX every 2 weeks ???12. All the side effect and possible benefits were discussed in detail again and patient expressed understanding. Mr Khan agreed. He was referred back to Dr. Merritt for Port-A-Cath placement and began his first cycle of FOLFOX on 02/09/2018 .Patient developed abdominal pain for which he underwent CT scan of abdomen on 03/19/2018 showed moderate constipation, and stable rectosigmoid anastomosis with no recurrent mass or adjacent adenopathy and bilateral lower lobe pulmonary nodules are stable since 02/03/2017. No evidence of metastatic disease elsewhere. Following day patient had large bowel movement and since then no more abdominal pain. Patient expressed intolerance to 5-FU infusion chemotherapy and also consider it inconvenient so requesting Xeloda pills instead of 5-FU infusion. His treatment plan was changed to XELOX beginning 03/23/2018. He has tolerated it well thus far. He completed 5 of the planned [address] PET scan done on 11/06/2018 showed prostate is enlarged, measuring 6 cm in diameter with diffusely increased FDG activity, most intense in the central prostate. Normal tracer activity at the rectal anastomosis There are 2 pulmonary nodules in the right lower lobe and one in the right upper lobe, the index nodule in the right lower lobe measuring 1.1 x 1.6 cm with SUV of 3.5. Most consistent with metastatic disease, likely from colonic primary. Multiple hypermetabolic mediastinal lymph nodes are present, consistent with metastatic disease, in the inferior right perihilar 1.9 cm, 5.2 SUV. Subcarinal, prevascular, right paratracheal, 1.9 cm, 6.8 SUV. Right hilar territories. Subcentimeter nodes are also noted in the superior right paratracheal region. Too small to characterize. Mr. Khan had established care with Dr. Esquivel in pulmonology. A bronchoscopy was performed and he was found to have sarcoidosis which was treated with some success however a follow-up CT of the chest done on August 29, 2019 showed interval progression of disease with bilateral pulmonary nodules with the largest nodule in the right lower lobe posteriorly. There was activity in the right suprahilar with narrowing of the right upper lobe bronchus and numerous additional new and progressive pulmonary nodules throughout both lungs. There was right hilar lymphadenopathy. He underwent another bronchoscopy and endobronchial ultrasound-guided transbronchial needle aspiration of station 11 R. This showed significant macrophages and histiocytes but no malignancy. However given his history there was concern about the possibility of malignancy therefore he underwent a second bronchoscopy on October 28, 2019. This did show a fungating mass at the orifice of the right upper lobe bronchus with complete occlusion of both airways. The right middle lobe and right lower lobe bronchi were examined up to a third subsegmental with no abnormality. A biopsy was obtained and did report positive for metastatic colorectal adenocarcinoma. Immunohistochemistry stains were positive for CK20 and CDX2. Mr. Khan was advised to pursue pallitave chemotherapy with FOLFOX Avastin. He began his first dose on November 16, 2019. Follow-up PET/CT from 02/18/2020 reports pulmonary nodules seen on the prior study were improved on the 02/18/2020 study. The index nodule in the right lower lobe that previously measured 2.7 x 1.8 cm with an SUV of 5.5 now measures 1.4 cm with an SUV of 3.2. The other right upper and left lung nodules are similarly improved. Increasing activity is present in the multiple FDG positive mediastinal nodes; as before, these are most consistent with sarcoidosis. These nodules are distributed in the right paratracheal, inferior right perihilar, subcarinal, prevascular and right hilar territories. The previously described right. Rectal node is unchanged in size but has an SUV of 4.2 up from 2.3 previously and consistent with recurrence. Rectal activity is prominent but is most likely physiologic. patient resumed his systemic chemotherapy on April 30, 2020 and received next dose on May 28, 2020 and then after that did not take further treatment due to 1 or other reasons subsequently underwent follow-up CT PET scan on May 30, 2020 which shows improvement in the right lower lobe pulmonary nodule. Improvement on the resolution of uptake in mediastinal lymph nodes. Stable FDG positive right perirectal node. Patient declined to continue current systemic therapy with Avastin/FOLFIRI but agreed to take oral Xeloda/Avastin so, at patient's request, his Avastin/FOLFIRI, was discontinued after last dose given on May 28, 2020 and he was switched to oral Xeloda 625 mg per metered squared twice daily day 1 through 14 along with Avastin 7.5 mg/kg on day 1 and then repeat cycle every 3 weeks on Plan: Discussed with patient regarding his labs from July 24, 2020 shows white blood count 7.7 hemoglobin 13 hematocrit 40.1 platelets 255,000 CMP within normal limits and CT PET scan finding which showed improvement in the right lower lobe pulmonary nodule, improvement or near resolution of uptake in mediastinal lymph nodes and stable FDG positive right perirectal node. Clinically, patient doing well, his overall performance status is improving with delay in his systemic chemotherapy due to patient's reluctance he to continue systemic therapy. His follow-up CT PET scan shows excellent response, no new lesions and improvement in her existing lesions and even near resolution of uptake in mediastinal lymph nodes., At this point, at patient's request, despite of good response to current chemo regimen with Avastin/FOLFIRI, we will change his regimen to maintenance therapy with oral Xeloda/Avastin, with that hopefully his compliance will improve along with quality of life and disease control. All the side effect possible benefits associated with oral Xeloda including but not limited to mouth sores, hand-foot syndrome, jaundice, nausea vomiting diarrhea, bone marrow suppression, cardiac toxicity were mentioned and hypertension, increased risk for bleeding with Avastin, further teaching done by chemotherapy nurse and considering patient's reluctance he to continue maintenance therapy and related side effects to the current chemotherapy regimen, we will modify his oral Xeloda dose and starting him on 625 mg per metered squared p.o. twice daily from day 1 through 14 and Avastin 7.5 mg/kg on day 1 and repeat cycle every 3 weeks. Patient was advised to quit smoking was offered any assistance he may need as far as shortness of breath is concerned, patient was advised to follow-up with Dr. Esquivel, hospital intern to optimize his medication. Return to clinic 2 weeks after initiating maintenance therapy with oral Xeloda/Avastin with CBC CMP Signed By: Paula Singh M.D. <<Signature on File>>
== END 2020-08-03 23:59 | disposition home or self-care (01) ==
LOC: ONCMED 05:33
PROVIDERS: Nurse Practitioner; PCP Nurse Practitioner; Visit Provider Internal Medicine Hematology & Oncology
DX: C19 Malignant neoplasm of rectosigmoid junction (principal); C61 Malignant neoplasm of prostate; C78.01 Secondary malignant neoplasm of right lung; R97.20 Elevated prostate specific antigen [PSA]; J44.9 Chronic obstructive pulmonary disease, unspecified; F17.210 Nicotine dependence, cigarettes, uncomplicated; R09.02 Hypoxemia; K21.9 Gastro-esophageal reflux disease without esophagitis; E87.6 Hypokalemia; K29.50 Unspecified chronic gastritis without bleeding; G89.29 Other chronic pain; K62.89 Other specified diseases of anus and rectum; Z79.52 Long term (current) use of systemic steroids; Z79.818 Long term (current) use of other agents affecting estrogen receptors and estrogen levels; Z79.899 Other long term (current) drug therapy
CPT/HCPCS: 36415; 36593; 80053; 85025; 96374; 96376; 99214; J2997

== ENCOUNTER 2020-08-22 06:22 | Outpatient (RCR) | payer MEDICARE, MEDICAID, SELFPAY ==
[2020-08-22] MEDS: alteplase 1 mg/mL SDV 2 mL 2 MG IV (12:34)
[2020-08-22 12:44] LABS: Basophils # 0.1 10^3/uL (0.0-0.1); Basophils % 0.9 %; Eosinophils # 0.4 10^3/uL (0.0-0.8); Eosinophils % 4.4 %; Hematocrit 39.9 % (42.0-52.0); Hemoglobin 13.2 g/dL (11.7-16.6); Lymphocytes # 1.5 10^3/uL (0.8-4.8); Lymphocytes % 18.9 %; Mean Corpuscular HGB Conc 33.1 g/dL (30.0-36.0); Mean Corpuscular Hemoglobin 27.5 pg (28.0-34.0); Mean Corpuscular Volume 83.1 fL (80-94); Mean Platelet Volume 9.9 fL (7.4-10.4); Monocytes # 0.6 10^3/uL (0.2-0.9); Monocytes % 7.7 %; Neutrophils # 5.37 10^3/uL (1.8-7.7); Neutrophils % 67.8 %; Nucleated Red Blood Cells % 0 %; Platelet Count 261 10^3/cmm (130-400); Red Cell Distribution Width 15.7 % (12.1-15.1); White Blood Count 7.9 10^3/uL (4.0-10.0)
[2020-08-22 13:04] LABS: Alanine Aminotransferase 26 U/L (0-41); Albumin Level 3.6 g/dL (3.5-5.2); Alkaline Phosphatase 103 IU/L (40-130); Aspartate Amino Transferase 18 U/L (0-40); Chloride 102 mmol/L (98-107); Potassium 4.6 mmol/L (3.5-5.1); Sodium 136 mmol/L (136-145)
[2020-08-22 13:26] LABS: Anion Gap 13.6 (5-19); Blood Urea Nitrogen 19 mg/dL (8-23); Calcium 8.7 mg/dL (8.5-10.5); Carbon Dioxide 25 mmol/L (22-29); Globulin 2.9 g/dL (1.3-4.6); Glucose 94 mg/dL (65-115); Osmolality Calculated 284 mOsm/kg (285-295); Total Bilirubin 0.2 mg/dL (0.15-1.2); Total Protein 6.5 g/dL (6.6-8.7)
[2020-08-22] MEDS: sodium chloride 0.9% 250 ML 75 ML IV (13:51)
[2020-08-22 14:16] LABS: Add Urine Microscopic? NO; Charge for UA Resulting for Rev
[2020-08-22 15:16] LABS: Bilirubin Urine Neg (Negative); Blood Urine Neg (Negative); Glucose Urine UA Norm (Normal); Ketones Urine Negative (Negative); Leukocyte Esterase Urine Negative (Negative); Nitrate Urine Negative (Negative); Protein Urine Neg (Negative); Specific Gravity, Urine 1.025 (1.005-1.030); Urine Appearance Clear (CLEAR); Urine Color Yellow (Yellow); Urobilinogen Urine Norm (Negative); pH Urine 5 (5-7)
== END 2020-09-03 23:59 | disposition home or self-care (01) ==
LOC: ONCMED 06:22
PROVIDERS: Nurse Practitioner; PCP Nurse Practitioner; Visit Provider Internal Medicine Hematology & Oncology
DX: Z51.11 Encounter for antineoplastic chemotherapy (principal); C19 Malignant neoplasm of rectosigmoid junction; C61 Malignant neoplasm of prostate; C78.01 Secondary malignant neoplasm of right lung; Z79.899 Other long term (current) drug therapy
CPT/HCPCS: 36415; 36593; 80053; 81003; 85025; 96375; 96413; J2997; J7050; J9035

== ENCOUNTER 2020-10-03 05:42 | Outpatient (RCR) | payer MEDICARE, MEDICAID, SELFPAY ==
[2020-09-12] MEDS: alteplase 1 mg/mL SDV 2 mL 2 MG IV ×2 (09:39→11:14)
[2020-09-12 09:49] LABS: Add Urine Microscopic? NO; Charge for UA Resulting for Rev
[2020-09-12 09:55] LABS: Basophils # 0.1 10^3/uL (0.0-0.1); Basophils % 1.1 %; Eosinophils # 0.1 10^3/uL (0.0-0.8); Eosinophils % 0.6 %; Hematocrit 41.4 % (42.0-52.0); Hemoglobin 13.5 g/dL (11.7-16.6); Lymphocytes # 0.9 10^3/uL (0.8-4.8); Mean Corpuscular HGB Conc 32.6 g/dL (30.0-36.0); Mean Corpuscular Hemoglobin 26.7 pg (28.0-34.0); Mean Platelet Volume 9.4 fL (7.4-10.4); Monocytes # 0.3 10^3/uL (0.2-0.9); Monocytes % 3.6 %; Neutrophils % 83.5 %; Nucleated Red Blood Cells % 0 %; Platelet Count 264 10^3/cmm (130-400); Red Blood Count 5.05 10^6/uL (4.1-5.3); Red Cell Distribution Width 16.6 % (12.1-15.1); White Blood Count 8.3 10^3/uL (4.0-10.0)
[2020-09-12 10:20] LABS: Bilirubin Urine Neg (Negative); Blood Urine Neg (Negative); Glucose Urine UA Norm (Normal); Ketones Urine Negative (Negative); Leukocyte Esterase Urine Negative (Negative); Nitrate Urine Negative (Negative); Protein Urine Neg (Negative); Specific Gravity, Urine 1.015 (1.005-1.030); Urine Appearance Clear (CLEAR); Urine Color Yellow (Yellow); Urobilinogen Urine 1 mg/dL (Negative); pH Urine 6 (5-7)
[2020-09-12 10:23] LABS: Alanine Aminotransferase 23 U/L (0-41); Albumin Level 4.1 g/dL (3.5-5.2); Alkaline Phosphatase 83 IU/L (40-130); Anion Gap 14.2 (5-19); Aspartate Amino Transferase 18 U/L (0-40); Blood Urea Nitrogen 23 mg/dL (8-23); Calcium 9.5 mg/dL (8.5-10.5); Carbon Dioxide 27 mmol/L (22-29); Chloride 97 mmol/L (98-107); Globulin 2.8 g/dL (1.3-4.6); Glucose 155 mg/dL (65-115); Osmolality Calculated 285 mOsm/kg (285-295); Potassium 4.2 mmol/L (3.5-5.1); Sodium 134 mmol/L (136-145); Total Bilirubin 0.3 mg/dL (0.15-1.2); Total Protein 6.9 g/dL (6.6-8.7)
[2020-09-12 10:51] LABS: Carcinoembryonic Antigen 3.2 ng/mL (0.0-4.7)
[2020-09-12] MEDS: sodium chloride 0.9% 250 ML 75 ML IV (13:15)
[2020-09-27 12:46] LABS: Add Urine Microscopic? NO; Charge for UA Resulting for Rev
[2020-09-27 12:55] LABS: Bilirubin Urine Neg (Negative); Blood Urine Neg (Negative); Glucose Urine UA Norm (Normal); Ketones Urine Negative (Negative); Leukocyte Esterase Urine Negative (Negative); Nitrate Urine Negative (Negative); Protein Urine Neg (Negative); Specific Gravity, Urine 1.005 (1.005-1.030); Urine Appearance Clear (CLEAR); Urine Color Yellow (Yellow); Urobilinogen Urine Norm (Negative); pH Urine 5 (5-7)
[2020-09-27 13:01] LABS: Basophils % 0.4 %; Eosinophils # 0.1 10^3/uL (0.0-0.8); Eosinophils % 1.1 %; Hematocrit 41.2 % (42.0-52.0); Hemoglobin 13.6 g/dL (11.7-16.6); Lymphocytes # 0.8 10^3/uL (0.8-4.8); Lymphocytes % 8.4 %; Mean Corpuscular Hemoglobin 28.2 pg (28.0-34.0); Mean Corpuscular Volume 85.5 fL (80-94); Mean Platelet Volume 9.6 fL (7.4-10.4); Monocytes # 0.4 10^3/uL (0.2-0.9); Monocytes % 4.3 %; Neutrophils # 8.14 10^3/uL (1.8-7.7); Neutrophils % 85.5 %; Nucleated Red Blood Cells % 0 %; Platelet Count 199 10^3/cmm (130-400); Red Blood Count 4.82 10^6/uL (4.1-5.3); Red Cell Distribution Width 18.3 % (12.1-15.1); White Blood Count 9.5 10^3/uL (4.0-10.0)
[2020-09-27 13:28] LABS: Alanine Aminotransferase 24 U/L (0-41); Albumin Level 4.1 g/dL (3.5-5.2); Alkaline Phosphatase 69 IU/L (40-130); Anion Gap 12.9 (5-19); Aspartate Amino Transferase 17 U/L (0-40); Blood Urea Nitrogen 25 mg/dL (8-23); Calcium 9.5 mg/dL (8.5-10.5); Carbon Dioxide 27 mmol/L (22-29); Chloride 97 mmol/L (98-107); Globulin 2.3 g/dL (1.3-4.6); Glucose 126 mg/dL (65-115); Osmolality Calculated 280 mOsm/kg (285-295); Potassium 4.9 mmol/L (3.5-5.1); Sodium 132 mmol/L (136-145); Total Bilirubin 0.3 mg/dL (0.15-1.2); Total Protein 6.4 g/dL (6.6-8.7)
[2020-09-27 14:14] LABS: Carcinoembryonic Antigen 3.8 ng/mL (0.0-4.7)
--- NOTE | 2020-09-30 11:19 | ONC FU_ITS ---
[facility] Patient Note Patient: Oswaldo Khan Unit #: [id number]: 1945 Dictated By: Arabella GalvezDate of Visit: Sep 12, 2020 Onc MED Follow-Up/Prog Note Chief Complaint: Upper rectal carcinoma status post resection and elevated PSA level History of Present Illness: Mr. Khan is a 74-year-old gentleman with history of abdominal pain and rectal bleed underwent colonoscopy and was found to have a rectal mass. A biopsy was obtained and it confirmed adenocarcinoma. Mr Khan then underwent low anterior resection on 03/05/2017. The final pathology report showed invasive adenocarcinoma , tumor invades perirectal adipose and 1 out of 18 lymph nodes was positive with extranodal extension and no loss of nuclear expression of MMR protein . Mr Khan also has history of elevated PSA. On 03/12/2017 his PSA was 35.20. As per patient he has seen Dr. Sunil Martinez , urologist, who is following him and CT scan of abdomen pelvis done on 03/19/2017 showed some prominent retroperitoneal lymph nodes somewhat more prominent than in 2013 Mr Khan took combined chemoradiation for 3 days the first week but then accidentally pulled his [place]ur cath and sustained urethral injury. He was evaluated by Dr. Martinez and underwent cystoscopy exam and reinsertion of Mc[place]ur cath, during this time combined chemoradiation therapy was on hold. He resumed 4 weeks after . Patient was advised to take Xeloda daily for 5 days per week during radiation therapy. His Xeloda daily on the days of radiation only was held for a few days due to persistent diarrhea. He concluded his chemoradiation on 11/03/2017. The diarrhea resolved at that time. Mr. Khan was advised to pursue adjuvant chemotherapy with FOLFOX. had a long discussion regarding the role of adjuvant chemotherapy. Mr Khan agreed to get Port-A-Cath placement but then at the last minute, he changed his mind. Since that time though, he has agreed to pursue the recommended adjuvant chemotherapy. He did agree to port placement. He completed 2 cycles of modified FOLFOX as of 03/04/2018. At his 03/16/2018 appointment, he stated had been having increased abdominal pain and decreased energy. He stated that he did not complete the full 2 days of the fluorouracil pump last one and this he felt like it was making me feel pretty bad . CT scan of the abdomen was done on on 03/19/2018 show stable rectosigmoid anastomosis with no recurrent or adjacent adenopathy. Moderate diffuse constipation. At the patient's request and his refusal to continue with 5-FU infusion, it was opted to change the chemotherapy plan of care to XELOX on 03/23/2018 and with the plan to give him 6 cycles. Mr. Khan had tolerated it well. 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 He completed 5/6 cycles. At his request, Adjuvant chemotherapy with Xelox concluded on 07/05/2018. CT scan of abdomen pelvis done on 09/23/2018 showed no acute findings but 1.3 cm nodule in the right lower lobe of the lung. CT PET scan done on 11/06/2018 showed enlarged prostate with diffusely increase uptake Malignant appearing right lung nodules, most likely from colonic carcinoma Malignant mediastinal lymph nodes, most likely from colonic carcinoma No evidence for local prostate metastatic nodes. Normal activity at rectal anastomosis. Mr Khan had followup in August [address] Esquivel, chief credit officer. A bronchoscopy was obtained and Mr Khan was diagnosed with sarcoidosis. This was treated with some success but follow-up CT scan of chest done on August 30, 2019 showed evidence of interval progression of disease with bilateral pulmonary nodules. The largest nodule in the right lower lobe posteriorly and right suprahilar with narrowing of right upper lobe bronchus and numerous additional new and progressive pulmonary nodules throughout both lungs right hilar lymphadenopathy. The patient underwent bronchoscopy and endobronchial ultrasound-guided transbronchial needle aspiration of station 11 R, showed significant macrophages and histiocytes but no malignancy. but there was a concern about possibility of malignancy so patient underwent second bronchoscopy on October 28, 2019 which showed a fungating mass was seen at the orifice of right upper lobe bronchus with complete occlusion of airways. The right middle lobe and right lower lobe bronchi were examined up to third subsegmental with no abnormality. Biopsy was obtained came back positive for metastatic colorectal adenocarcinoma as immunohistochemistry stain were positive for CK20 and CDX2. Mr Khan was started on systemic chemotherapy with a Avastin/FOLFIRI on November 16, 2019. Next generation/gene sequencing was ordered and on December 19, 2019, it reported HER-2/peggy negative and says it was not possible to calculate tumor mutational burden and MSI/MMR for the sample because the sequencing data did not reach the minimum depth of coverage required to provide a result on these biomarkers. Follow-up PET/CT from 02/18/2020 reports pulmonary nodules seen on the prior study were improved on the 02/18/2020 study. The index nodule in the right lower lobe that previously measured 2.7 x 1.8 cm with an SUV of 5.5 now measures 1.4 cm with an SUV of 3.2. The other right upper and left lung nodules are similarly improved. Increasing activity is present in the multiple FDG positive mediastinal nodes; as before, these are most consistent with sarcoidosis. These nodules are distributed in the right paratracheal, inferior right perihilar, subcarinal, prevascular and right hilar territories. The previously described right. Rectal node is unchanged in size but has an SUV of 4.2 up from 2.3 previously and consistent with recurrence. Rectal activity is prominent but is most likely physiologic. At that time, his last treatment was on 02/27/2020. As treatment had been on hold due to elevated blood pressure his blood pressure has been 195/110 last visit and is 189/104 today despite increasing his lisinopril to 10 mg daily.Continued with amlodipine 5 mg p.o. daily He was also complaining of sigificant headaches, so an MRI scan of the brain was ordered to rule out brain mets. The MRI was done on April 03, 2020 and showed no evidence of metastatic disease to brain and no other acute abnormality seen. Mr Khan has been noncompliant with his chemotherapy as he has skipped many scheduled chemotherapy treatments in the past. An example of his most recent noncompliance; his chemo was given on February 27, 2020 and he did return to the office until April 13, 2020, at that time he was scheduled for chemotherapy on April 16, 2020, but patient did not come. He did eventually resume chemotherapy on April 30, 2020. His last chemotherapy prior to April 30, 2020 was February 27, 2020. His last chemotherapy since April 30, 2020 was on May 28, 2020. He has missed his appointment for several reasons on his part such as just did not feel like coming???sick at stomach , he did realize he was getting chemotherapy that day and had not planned accordingly, etc. For his visit today his last chemotherapy was given on May 28, 2020. His last chemotherapy with 5-FU irinotecan and Avastin was given on May 28, 2020. He has had cardiac work-up with [facility]. He has had a stress test that is negative for cardiac disease. Follow-up CT PET scan done on July 28, 2020 showed the lateral right lower lobe nodule demonstrated ongoing positive response to therapy, now subcentimeter in size, with minimal FDG activity. The extensive mediastinal adenopathy seen previously now minimally FDG positive, with exception of the right hilar node which is now has an SUV of 6, down from 13.6 previously. The right perirectal node has SUV of 3.4 and is unchanged in size, indicating stable disease. No new lesion seen. He has had persistent frontal headaches. He was given oral antibiotic for presumed sinusitis with that his headaches did improve. Mr. Khan had a MRI of the brain with and without contrast on 04/05/2020 which reported no evidence of any intracranial enhancements or metastatic disease. There was mild small vessel changes and moderate parenchymal volume loss but no restricted diffusion to suggest acute ischemia. He has had persistent headaches and some concern that this could have been due to the palonosetron given his premedications. However since he started just Avastin and Xeloda August 22, 2020, his headaches have persisted. He is also complaining of progressive shortness of breath, but it is noted that he reports that he isstill smoking about pack a day. Mr Khan has not been too keen to continue systemic chemotherapy as he has just started feeling better-gradually since his full last chemotherapy dose was last given on May 28, 2020. Mr. Khan's therapy has been changed to maintenance therapy with Avastin and Xeloda thus far he has tolerated this treatment well. He began his first cycle on August 22, 2020. He continues to be extremely hard of hearing. That seems to be no worse but certainly no better. He has no new concerns today. He states his diarrhea is better overall. He denies any mouth sores, sore throat or difficulty swallowing. He denies any skin changes on his hands or feet. He states as long as he takes the hydrocodone his pain is controlled and his energy is much better once the pain is controlled. He can do all his ADLs without assistance as long as he is taking his pain medication. He states he continues to be short of breath but that is no worse. He has seen Dr. Esquivel. Mr. Khan continues to smoke around a pack a day . He denies any new pain. He denies any lower extremity swelling. He denies any fever or chills. His ECOG is 1. Past Medical History: Chronic obstructive pulmonary disease Gastroesophageal reflux HARD OF HEARING-SEVERE Past Surgical History: Port placement - dr. tiffany RAMSAYP / biopsy in 2017 Appendectomy in 2016 Cholecystectomy in 2016 Liver wedge biopsy in 2016 Hernia repair in 2009 Allergies: No Known Allergies. Medications: DULoxetine HCl 1 Capsule (of 20 mg) Capsule Delayed Release Particles Oral daily Flomax 1 Tablet (of 0.4 mg) Capsule Oral daily HYDROcodone-Acetaminophen 1 - 2 Tablet (of 10-325 mg) Oral q 4 hours PRN Ibuprofen 3 Tablet (of 200 mg) Oral daily PRN predniSONE 1 Tablet (of 20 mg) Oral daily Xeloda 2 Tablet (of 500 mg) Oral b.i.d. Xeloda 2 Tablet (of 150 mg) Oral b.i.d. Family History: Mr. Khan's mother at age 62: diabetes, and heart attack, and pneumonia. Mr. Khan's father at age 74: Colon Cancer. Mr. Khan has 1 brother who is alive: heart disease. Social History: Mr. Khan is and he is retired. He is a daily smoker who has smoked 1.0 pack/day for 31 years. He has no history of drinking. Review Of Symptoms: <See Above> Vital Signs: Performed on Sep 12, 2020 11:45 Height - 70.00 in Weight - 183.4 lbs (LOW) BSA - 2.01 sq.m BMI - 26.32 Temperature - 97.2 F (LOW) Pulse - 91 /min Respiration - 17 /min BP - 117/74 mm(hg) O2 Sat - 94 % (LOW) Pain - 0,1 - No physically strenuous activity, but ambulatory and able to carry out light or sedentary work (e.g. office work, light house work). (ECOG) Physical Examination: Constitutional Alert, oriented, no acute distress. Skin pink, warm and dry. Hard of hearing- no worse than his last visit but is severe. Head Normocephalic; atraumatic. Eyes Conjunctivae and sclerae are clear and without icterus. Pupils are reactive and equal. Neck Supple without masses or thyromegaly. No jugular venous distension. Hematologic/Lymphatic No petechiae or purpura. No tender or palpable lymph nodes in the cervical or supraclavicular area. Respiratory Lungs are clear to auscultation without rhonchi or wheezing. Cardiovascular Regular rate and rhythm of heart without murmurs,clicks, gallops or rubs. Abdomen Non-tender, non-distended or masses, ascites. Good bowel sounds noted in all quads. No guarding or rebound tenderness. Back/Spine Non-tender to palpation. Extremities No visible deformities, no cyanosis, clubbing or edema. Musculoskeletal No tenderness or swelling, normal range of motion without obvious weakness. Integumentary No rashes or lesions. Neurologic No sensory or motor deficits, normal cerebellar function, normal gait. Psychiatric Alert and oriented times three. Coherent speech. Verbalizes understanding of our discussions today. Laboratory:Test performed on Sep 12, 2020 09:34 Sodium 134 mmol/L Potassium 4.2 mmol/L Chloride 97 mmol/L CO2 27 mmol/L Anion Gap 14.2 BUN 23 mg/dL Creatinine 0.9 mg/dL Cr Clearance (Est) 90.7300 mL/min Glucose 155 mg/dL Osmolality - Calculated 285 mOsm/kg Calcium 9.5 mg/dL Protein, Total 6.9 g/dL Albumin 4.1 g/dL Globulin 2.8 g/dL Bilirubin, Total 0.3 mg/dL ALT (SGPT) 23 U/L AST (SGOT) 18 U/L Alkaline Phosphatase 83 IU/L WBC 8.3 10 3/uL RBC 5.05 10 6/uL HGB 13.5 g/dL HCT 41.4 % MCV 82.0 fL MCH 26.7 pg MCHC 32.6 g/dL RDW 16.6 % Platelet Count 264 10 3/cmm MPV 9.4 fL Neutrophils 6.90 10 3/uL Lymphocytes 0.9 10 3/uL Monocytes 0.3 10 3/uL Eosinophils 0.1 10 3/uL Basophils 0.1 10 3/uL Neutrophil % 83.5 % Lymphocyte % 11.0 % Monocyte % 3.6 % Eosinophil % 0.6 % Basophils % 1.1 % NRBC % 0 % CEA 3.2 ng/mL Test performed on Sep 12, 2020 09:25 Ua Color Yellow Ua Appearance Clear Ua Glucose Norm Ua Bilirubin Neg Ua Ketones Negative Ua Specific [place] 1.015 Ua Blood Neg Ua pH 6 Ua Protein Neg Ua Urobilinogen 1 mg/dL Ua Nitrites Negative Ua Leukocyte Esterase Negative Test performed on May 28, 2020 08:56 PSA 1.410 ng/mL Impression: Invasive adenocarcinoma of upper rectum status post APR on 03/05/2017 final pathology showed tumor size 5.5 x 5.4 cm low-grade, tumor invades perirectal adipose p T3, lymphovascular invasion present, no perineural invasion seen 1 out of 18 positive lymph nodes N1a , extranodal extension present N1 stage IIIA No loss of nuclear expression of MMR protein Elevated PSA, on 03/12/2017 it was 35.20 with prostate enlargement, being followed by Dr. Martinez. s/p chemoradiation with Xeloda as chemosensitizer. till 11/03/17 discussed with patient regarding the role of adjuvant chemotherapy in stage IIIa rectal cancer, as literature has shown adjuvant chemotherapy improves disease-free survival. Patient has been reluctant to consider chemotherapy because of severe diarrhea during chemoradiation for rectal CA. He was assured that we will adjust/modify his adjuvant chemotherapy to make it tolerable. Patient, now agreed to get port placement and for adjuvant chemotherapy modified FOLFOX every 2 weeks ???12. All the side effect and possible benefits were discussed in detail again and patient expressed understanding. Mr Khan agreed. He was referred back to Dr. Merritt for Port-A-Cath placement and began his first cycle of FOLFOX on 02/09/2018 .Patient developed abdominal pain for which he underwent CT scan of abdomen on 03/19/2018 showed moderate constipation, and stable rectosigmoid anastomosis with no recurrent mass or adjacent adenopathy and bilateral lower lobe pulmonary nodules are stable since 02/03/2017. No evidence of metastatic disease elsewhere. Following day patient had large bowel movement and since then no more abdominal pain. Patient expressed intolerance to 5-FU infusion chemotherapy and also consider it inconvenient so requesting Xeloda pills instead of 5-FU infusion. His treatment plan was changed to XELOX beginning 03/23/2018. He has tolerated it well thus far. He completed 5 of the planned [address] PET scan done on 11/06/2018 showed prostate is enlarged, measuring 6 cm in diameter with diffusely increased FDG activity, most intense in the central prostate. Normal tracer activity at the rectal anastomosis There are 2 pulmonary nodules in the right lower lobe and one in the right upper lobe, the index nodule in the right lower lobe measuring 1.1 x 1.6 cm with SUV of 3.5. Most consistent with metastatic disease, likely from colonic primary. Multiple hypermetabolic mediastinal lymph nodes are present, consistent with metastatic disease, in the inferior right perihilar 1.9 cm, 5.2 SUV. Subcarinal, prevascular, right paratracheal, 1.9 cm, 6.8 SUV. Right hilar territories. Subcentimeter nodes are also noted in the superior right paratracheal region. Too small to characterize. Mr. Khan had established care with Dr. Esquivel in pulmonology. A bronchoscopy was performed and he was found to have sarcoidosis which was treated with some success however a follow-up CT of the chest done on August 29, 2019 showed interval progression of disease with bilateral pulmonary nodules with the largest nodule in the right lower lobe posteriorly. There was activity in the right suprahilar with narrowing of the right upper lobe bronchus and numerous additional new and progressive pulmonary nodules throughout both lungs. There was right hilar lymphadenopathy. He underwent another bronchoscopy and endobronchial ultrasound-guided transbronchial needle aspiration of station 11 R. This showed significant macrophages and histiocytes but no malignancy. However given his history there was concern about the possibility of malignancy therefore he underwent a second bronchoscopy on October 28, 2019. This did show a fungating mass at the orifice of the right upper lobe bronchus with complete occlusion of both airways. The right middle lobe and right lower lobe bronchi were examined up to a third subsegmental with no abnormality. A biopsy was obtained and did report positive for metastatic colorectal adenocarcinoma. Immunohistochemistry stains were positive for CK20 and CDX2. Mr. Khan was advised to pursue pallitave chemotherapy with FOLFOX Avastin. He began his first dose on November 16, 2019. Follow-up PET/CT from 02/18/2020 reports pulmonary nodules seen on the prior study were improved on the 02/18/2020 study. The index nodule in the right lower lobe that previously measured 2.7 x 1.8 cm with an SUV of 5.5 now measures 1.4 cm with an SUV of 3.2. The other right upper and left lung nodules are similarly improved. Increasing activity is present in the multiple FDG positive mediastinal nodes; as before, these are most consistent with sarcoidosis. These nodules are distributed in the right paratracheal, inferior right perihilar, subcarinal, prevascular and right hilar territories. The previously described right. Rectal node is unchanged in size but has an SUV of 4.2 up from 2.3 previously and consistent with recurrence. Rectal activity is prominent but is most likely physiologic. patient resumed his systemic chemotherapy on April 30, 2020 and received next dose on May 28, 2020 and then after that did not take further treatment due to 1 or other reasons subsequently underwent follow-up CT PET scan on May 30, 2020 which shows improvement in the right lower lobe pulmonary nodule. Improvement on the resolution of uptake in mediastinal lymph nodes. Stable FDG positive right perirectal node. Patient declined to continue current systemic therapy with Avastin/FOLFIRI but agreed to take oral Xeloda/Avastin so, at patient's request, his Avastin/FOLFIRI, was discontinued after last dose given on May 28, 2020 and he was switched to oral Xeloda 625 mg per metered squared twice daily day 1 through 14 along with Avastin 7.5 mg/kg on day 1 and then repeat cycle every 3 weeks on 08/22/2020. Plan/Problems Addressed at this Visit: 1. Metastatic rectal cancer A. Proceed with Cycle 2-day 1 Avastin/Xeloda. B. His current Xeloda dose is 1300 mg twice daily days 1-14 and off 7. He is on a 21-day cycle. C. Today's labs reviewed in detail discussed with Bill and a copy was given to him. CBC reports WBC at 8.3, hemoglobin 13.5, platelets 264,000 ANC 6900. Potassium 4.2 random glucose 155 creatinine 0.9 LFTs are normal his CEA is 3.2. His UA is negative for protein. His blood pressure today is 117/74. 2. 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 A. It is currently controlled with hydrocodone 01/06/2025. He states this helps him sleep good and also controls his pains that he can get up and do his activities of daily living. We will refill his hydrocodone 01/06/2025 for #60 today. 3. Follow-up A. Mr. Khan will return in 3 weeks with CBC CMP CEA and UA for Avastin monitoring. B. He was instructed to contact us in interim should questions or problems arise. Signed By: Arabella Galvez-, AOP Paula Singh MD <<Signature on File>>
[2020-10-03 08:42] LABS: Add Urine Microscopic? NO; Charge for UA Resulting for Rev
[2020-10-03 08:57] LABS: Bilirubin Urine Neg (Negative); Blood Urine Neg (Negative); Glucose Urine UA Norm (Normal); Ketones Urine Negative (Negative); Leukocyte Esterase Urine Negative (Negative); Nitrate Urine Negative (Negative); Protein Urine Neg (Negative); Specific Gravity, Urine 1.015 (1.005-1.030); Urine Appearance Clear (CLEAR); Urine Color Yellow (Yellow); Urobilinogen Urine Norm (Negative); pH Urine 5 (5-7)
[2020-10-03 08:59] LABS: Basophils # 0.1 10^3/uL (0.0-0.1); Basophils % 0.6 %; Eosinophils # 0.1 10^3/uL (0.0-0.8); Eosinophils % 1.2 %; Hematocrit 40.6 % (42.0-52.0); Hemoglobin 13.6 g/dL (11.7-16.6); Lymphocytes # 0.9 10^3/uL (0.8-4.8); Lymphocytes % 10.3 %; Mean Corpuscular HGB Conc 33.5 g/dL (30.0-36.0); Mean Corpuscular Hemoglobin 28.2 pg (28.0-34.0); Mean Corpuscular Volume 84.2 fL (80-94); Monocytes # 0.4 10^3/uL (0.2-0.9); Monocytes % 4.3 %; Neutrophils # 7.13 10^3/uL (1.8-7.7); Neutrophils % 83.4 %; Nucleated Red Blood Cells % 0 %; Platelet Count 192 10^3/cmm (130-400); Red Blood Count 4.82 10^6/uL (4.1-5.3); Red Cell Distribution Width 18.6 % (12.1-15.1); White Blood Count 8.6 10^3/uL (4.0-10.0)
[2020-10-03 09:26] LABS: Carcinoembryonic Antigen 3.9 ng/mL (0.0-4.7)
[2020-10-03 09:38] LABS: Alanine Aminotransferase 26 U/L (0-41); Albumin Level 3.9 g/dL (3.5-5.2); Alkaline Phosphatase 81 IU/L (40-130); Anion Gap 16.8 (5-19); Aspartate Amino Transferase 18 U/L (0-40); Blood Urea Nitrogen 37 mg/dL (8-23); Calcium 8.9 mg/dL (8.5-10.5); Carbon Dioxide 22 mmol/L (22-29); Chloride 96 mmol/L (98-107); Globulin 2.5 g/dL (1.3-4.6); Glucose 111 mg/dL (65-115); Osmolality Calculated 279 mOsm/kg (285-295); Potassium 4.8 mmol/L (3.5-5.1); Sodium 130 mmol/L (136-145); Total Bilirubin 0.3 mg/dL (0.15-1.2); Total Protein 6.4 g/dL (6.6-8.7)
[2020-10-03] MEDS: sodium chloride 0.9% 250 ML 75 ML IV (10:30)
--- NOTE | 2020-10-03 17:03 | ONC FU_ITS ---
follow up note Patient: Oswaldo Khan Unit #: [id number]: [id number] Dicatated By: Paula Singh M.D.Date of Visit:Oct 03, 2020 Onc Med Follow-up/Prog Note History of Present Illness: Mr. Khan is a 74-year-old gentleman with history of abdominal pain and rectal bleed underwent colonoscopy and was found to have a rectal mass. A biopsy was obtained and it confirmed adenocarcinoma. Mr Khan then underwent low anterior resection on 03/05/2017. The final pathology report showed invasive adenocarcinoma , tumor invades perirectal adipose and 1 out of 18 lymph nodes was positive with extranodal extension and no loss of nuclear expression of MMR protein . Mr Khan also has history of elevated PSA. On 03/12/2017 his PSA was 35.20. As per patient he has seen Dr. Sunil Martinez , urologist, who is following him and CT scan of abdomen pelvis done on 03/19/2017 showed some prominent retroperitoneal lymph nodes somewhat more prominent than in 2013 Mr Khan took combined chemoradiation for 3 days the first week but then accidentally pulled his [place] cath and sustained urethral injury. He was evaluated by Dr. Martinez and underwent cystoscopy exam and reinsertion of [place] cath, during this time combined chemoradiation therapy was on hold. He resumed 4 weeks after . Patient was advised to take Xeloda daily for 5 days per week during radiation therapy. His Xeloda daily on the days of radiation only was held for a few days due to persistent diarrhea. He concluded his chemoradiation on 11/03/2017. The diarrhea resolved at that time. Mr. Khan was advised to pursue adjuvant chemotherapy with FOLFOX. had a long discussion regarding the role of adjuvant chemotherapy. Mr Khan agreed to get Port-A-Cath placement but then at the last minute, he changed his mind. Since that time though, he has agreed to pursue the recommended adjuvant chemotherapy. He did agree to port placement. He completed 2 cycles of modified FOLFOX as of 03/04/2018. At his 03/16/2018 appointment, he stated had been having increased abdominal pain and decreased energy. He stated that he did not complete the full 2 days of the fluorouracil pump last one and this he felt like it was making me feel pretty bad . CT scan of the abdomen was done on on 03/19/2018 show stable rectosigmoid anastomosis with no recurrent or adjacent adenopathy. Moderate diffuse constipation. At the patient's request and his refusal to continue with 5-FU infusion, it was opted to change the chemotherapy plan of care to XELOX on 03/23/2018 and with the plan to give him 6 cycles. Mr. Khan had tolerated it well. 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 He completed 5/6 cycles. At his request, Adjuvant chemotherapy with Xelox concluded on 07/05/2018. CT scan of abdomen pelvis done on 09/23/2018 showed no acute findings but 1.3 cm nodule in the right lower lobe of the lung. CT PET scan done on 11/06/2018 showed enlarged prostate with diffusely increase uptake Malignant appearing right lung nodules, most likely from colonic carcinoma Malignant mediastinal lymph nodes, most likely from colonic carcinoma No evidence for local prostate metastatic nodes. Normal activity at rectal anastomosis. Mr Khan had followup in August [address] Esquivel, kier drier. A bronchoscopy was obtained and Mr Khan was diagnosed with sarcoidosis. This was treated with some success but follow-up CT scan of chest done on August 30, 2019 showed evidence of interval progression of disease with bilateral pulmonary nodules. The largest nodule in the right lower lobe posteriorly and right suprahilar with narrowing of right upper lobe bronchus and numerous additional new and progressive pulmonary nodules throughout both lungs right hilar lymphadenopathy. The patient underwent bronchoscopy and endobronchial ultrasound-guided transbronchial needle aspiration of station 11 R, showed significant macrophages and histiocytes but no malignancy. but there was a concern about possibility of malignancy so patient underwent second bronchoscopy on October 28, 2019 which showed a fungating mass was seen at the orifice of right upper lobe bronchus with complete occlusion of airways. The right middle lobe and right lower lobe bronchi were examined up to third subsegmental with no abnormality. Biopsy was obtained came back positive for metastatic colorectal adenocarcinoma as immunohistochemistry stain were positive for CK20 and CDX2. Mr Khan was started on systemic chemotherapy with a Avastin/FOLFIRI on November 16, 2019. Next generation/gene sequencing was ordered and on December 19, 2019, it reported HER-2/peggy negative and says it was not possible to calculate tumor mutational burden and MSI/MMR for the sample because the sequencing data did not reach the minimum depth of coverage required to provide a result on these biomarkers. Follow-up PET/CT from 02/18/2020 reports pulmonary nodules seen on the prior study were improved on the 02/18/2020 study. The index nodule in the right lower lobe that previously measured 2.7 x 1.8 cm with an SUV of 5.5 now measures 1.4 cm with an SUV of 3.2. The other right upper and left lung nodules are similarly improved. Increasing activity is present in the multiple FDG positive mediastinal nodes; as before, these are most consistent with sarcoidosis. These nodules are distributed in the right paratracheal, inferior right perihilar, subcarinal, prevascular and right hilar territories. The previously described right. Rectal node is unchanged in size but has an SUV of 4.2 up from 2.3 previously and consistent with recurrence. Rectal activity is prominent but is most likely physiologic. At that time, his last treatment was on 02/27/2020. As treatment had been on hold due to elevated blood pressure his blood pressure has been 195/110 last visit and is 189/104 today despite increasing his lisinopril to 10 mg daily.Continued with amlodipine 5 mg p.o. daily He was also complaining of sigificant headaches, so an MRI scan of the brain was ordered to rule out brain mets. The MRI was done on April 03, 2020 and showed no evidence of metastatic disease to brain and no other acute abnormality seen. Mr Khan has been noncompliant with his chemotherapy as he has skipped many scheduled chemotherapy treatments in the past. An example of his most recent noncompliance; his chemo was given on February 27, 2020 and he did return to the office until April 13, 2020, at that time he was scheduled for chemotherapy on April 16, 2020, but patient did not come. He did eventually resume chemotherapy on April 30, 2020. His last chemotherapy prior to April 30, 2020 was February 27, 2020. His last chemotherapy since April 30, 2020 was on May 28, 2020. He has missed his appointment for several reasons on his part such as just did not feel like coming???sick at stomach , he did realize he was getting chemotherapy that day and had not planned accordingly, etc. For his visit today his last chemotherapy was given on May 28, 2020. His last chemotherapy with 5-FU irinotecan and Avastin was given on May 28, 2020. He has had cardiac work-up with [facility]. He has had a stress test that is negative for cardiac disease. Follow-up CT PET scan done on July 28, 2020 showed the lateral right lower lobe nodule demonstrated ongoing positive response to therapy, now subcentimeter in size, with minimal FDG activity. The extensive mediastinal adenopathy seen previously now minimally FDG positive, with exception of the right hilar node which is now has an SUV of 6, down from 13.6 previously. The right perirectal node has SUV of 3.4 and is unchanged in size, indicating stable disease. No new lesion seen. He has had persistent frontal headaches. He was given oral antibiotic for presumed sinusitis with that his headaches did improve. Mr. Khan had a MRI of the brain with and without contrast on 04/05/2020 which reported no evidence of any intracranial enhancements or metastatic disease. There was mild small vessel changes and moderate parenchymal volume loss but no restricted diffusion to suggest acute ischemia. He has had persistent headaches and some concern that this could have been due to the palonosetron given his premedications. However since he started just Avastin and Xeloda August 22, 2020, his headaches have persisted. He is also complaining of progressive shortness of breath, but it is noted that he reports that he isstill smoking about pack a day. Mr Khan has not been too keen to continue systemic chemotherapy as he has just started feeling better-gradually since his full last chemotherapy dose was last given on May 28, 2020., Came for follow-up, denies any specific complaints, no fever chills, no nausea or vomiting, no diarrhea constipation, patient completed his Xeloda over a week ago, now ready to start next cycle. No mouth sores, no thrush, no jaundice, no abdominal pain, no skin rash, no palm or sole rash, no fever chills. Patient said he went to see Dr. Esquivel for shortness of breath but got late for appointment and then he could not see him, now requesting to reschedule his appointment. Denies any headaches tolerating Avastin/Xeloda well otherwise Medications: DULoxetine HCl 1 Capsule (of 20 mg) Capsule Delayed Release Particles Oral daily, Flomax 1 Tablet (of 0.4 mg) Capsule Oral daily, HYDROcodone-Acetaminophen 1 - 2 Tablet (of 10-325 mg) Oral q 4 hours PRN, Ibuprofen 3 Tablet (of 200 mg) Oral daily PRN, predniSONE 1 Tablet (of 20 mg) Oral daily, Xeloda 2 Tablet (of 500 mg) Oral b.i.d., Xeloda 2 Tablet (of 150 mg) Oral b.i.d. Allergies: No Known Allergies. Review of Systems: Review of Systems is not available for this patient. Vital Signs: Performed on Oct 03, 2020 09:21 Height - 70.00 in Weight - 187.0 lbs (HIGH) BSA - 2.03 sq.m BMI - 26.83 Temperature - 97.3 F (LOW) Pulse - 93 /min Respiration - 18 /min BP - 138/64 mm(hg) O2 Sat - 97 % Pain - 0 Performance Status: 1 - No physically strenuous activity, but ambulatory and able to carry out light or sedentary work (e.g. office work, light house work). (ECOG) Physical Examination: ENMT - No mouth sores, no thrush, no jaundice, Respiratory - Poor air entry otherwise clear, Cardiovascular - Regular rate and rhythm of heart, Abdomen - Soft, bowel sounds present, Extremities - No visible edema or rash. Lab/Imaging: Test performed on Sep 12, 2020 09:34 Sodium 134 mmol/L Potassium 4.2 mmol/L Chloride 97 mmol/L CO2 27 mmol/L Anion Gap 14.2 BUN 23 mg/dL Creatinine 0.9 mg/dL Cr Clearance (Est) 90.7300 mL/min Glucose 155 mg/dL Osmolality - Calculated 285 mOsm/kg Calcium 9.5 mg/dL Protein, Total 6.9 g/dL Albumin 4.1 g/dL Globulin 2.8 g/dL Bilirubin, Total 0.3 mg/dL ALT (SGPT) 23 U/L AST (SGOT) 18 U/L Alkaline Phosphatase 83 IU/L WBC 8.3 10 3/uL RBC 5.05 10 6/uL HGB 13.5 g/dL HCT 41.4 % MCV 82.0 fL MCH 26.7 pg MCHC 32.6 g/dL RDW 16.6 % Platelet Count 264 10 3/cmm MPV 9.4 fL Neutrophils 6.90 10 3/uL Lymphocytes 0.9 10 3/uL Monocytes 0.3 10 3/uL Eosinophils 0.1 10 3/uL Basophils 0.1 10 3/uL Neutrophil % 83.5 % Lymphocyte % 11.0 % Monocyte % 3.6 % Eosinophil % 0.6 % Basophils % 1.1 % NRBC % 0 % CEA 3.2 ng/mL Test performed on Sep 12, 2020 09:25 Ua Color Yellow Ua Appearance Clear Ua Glucose Norm Ua Bilirubin Neg Ua Ketones Negative Ua Specific [place] 1.015 Ua Blood Neg Ua pH 6 Ua Protein Neg Ua Urobilinogen 1 mg/dL Ua Nitrites Negative Ua Leukocyte Esterase Negative Test performed on May 28, 2020 08:56 PSA 1.410 ng/mL Impression: Invasive adenocarcinoma of upper rectum status post APR on 03/05/2017 final pathology showed tumor size 5.5 x 5.4 cm low-grade, tumor invades perirectal adipose p T3, lymphovascular invasion present, no perineural invasion seen 1 out of 18 positive lymph nodes N1a , extranodal extension present N1 stage IIIA No loss of nuclear expression of MMR protein Elevated PSA, on 03/12/2017 it was 35.20 with prostate enlargement, being followed by Dr. Martinez. s/p chemoradiation with Xeloda as chemosensitizer. till 11/03/17 discussed with patient regarding the role of adjuvant chemotherapy in stage IIIa rectal cancer, as literature has shown adjuvant chemotherapy improves disease-free survival. Patient has been reluctant to consider chemotherapy because of severe diarrhea during chemoradiation for rectal CA. He was assured that we will adjust/modify his adjuvant chemotherapy to make it tolerable. Patient, now agreed to get port placement and for adjuvant chemotherapy modified FOLFOX every 2 weeks ???12. All the side effect and possible benefits were discussed in detail again and patient expressed understanding. Mr Khan agreed. He was referred back to Dr. Merritt for Port-A-Cath placement and began his first cycle of FOLFOX on 02/09/2018 .Patient developed abdominal pain for which he underwent CT scan of abdomen on 03/19/2018 showed moderate constipation, and stable rectosigmoid anastomosis with no recurrent mass or adjacent adenopathy and bilateral lower lobe pulmonary nodules are stable since 02/03/2017. No evidence of metastatic disease elsewhere. Following day patient had large bowel movement and since then no more abdominal pain. Patient expressed intolerance to 5-FU infusion chemotherapy and also consider it inconvenient so requesting Xeloda pills instead of 5-FU infusion. His treatment plan was changed to XELOX beginning 03/23/2018. He has tolerated it well thus far. He completed 5 of the planned [address] PET scan done on 11/06/2018 showed prostate is enlarged, measuring 6 cm in diameter with diffusely increased FDG activity, most intense in the central prostate. Normal tracer activity at the rectal anastomosis There are 2 pulmonary nodules in the right lower lobe and one in the right upper lobe, the index nodule in the right lower lobe measuring 1.1 x 1.6 cm with SUV of 3.5. Most consistent with metastatic disease, likely from colonic primary. Multiple hypermetabolic mediastinal lymph nodes are present, consistent with metastatic disease, in the inferior right perihilar 1.9 cm, 5.2 SUV. Subcarinal, prevascular, right paratracheal, 1.9 cm, 6.8 SUV. Right hilar territories. Subcentimeter nodes are also noted in the superior right paratracheal region. Too small to characterize. Mr. Khan had established care with Dr. Esquivel in pulmonology. A bronchoscopy was performed and he was found to have sarcoidosis which was treated with some success however a follow-up CT of the chest done on August 29, 2019 showed interval progression of disease with bilateral pulmonary nodules with the largest nodule in the right lower lobe posteriorly. There was activity in the right suprahilar with narrowing of the right upper lobe bronchus and numerous additional new and progressive pulmonary nodules throughout both lungs. There was right hilar lymphadenopathy. He underwent another bronchoscopy and endobronchial ultrasound-guided transbronchial needle aspiration of station 11 R. This showed significant macrophages and histiocytes but no malignancy. However given his history there was concern about the possibility of malignancy therefore he underwent a second bronchoscopy on October 28, 2019. This did show a fungating mass at the orifice of the right upper lobe bronchus with complete occlusion of both airways. The right middle lobe and right lower lobe bronchi were examined up to a third subsegmental with no abnormality. A biopsy was obtained and did report positive for metastatic colorectal adenocarcinoma. Immunohistochemistry stains were positive for CK20 and CDX2. Mr. Khan was advised to pursue pallitave chemotherapy with FOLFOX Avastin. He began his first dose on November 16, 2019. Follow-up PET/CT from 02/18/2020 reports pulmonary nodules seen on the prior study were improved on the 02/18/2020 study. The index nodule in the right lower lobe that previously measured 2.7 x 1.8 cm with an SUV of 5.5 now measures 1.4 cm with an SUV of 3.2. The other right upper and left lung nodules are similarly improved. Increasing activity is present in the multiple FDG positive mediastinal nodes; as before, these are most consistent with sarcoidosis. These nodules are distributed in the right paratracheal, inferior right perihilar, subcarinal, prevascular and right hilar territories. The previously described right. Rectal node is unchanged in size but has an SUV of 4.2 up from 2.3 previously and consistent with recurrence. Rectal activity is prominent but is most likely physiologic. patient resumed his systemic chemotherapy on April 30, 2020 and received next dose on May 28, 2020 and then after that did not take further treatment due to 1 or other reasons subsequently underwent follow-up CT PET scan on May 30, 2020 which shows improvement in the right lower lobe pulmonary nodule. Improvement on the resolution of uptake in mediastinal lymph nodes. Stable FDG positive right perirectal node. Patient declined to continue current systemic therapy with Avastin/FOLFIRI but agreed to take oral Xeloda/Avastin so, at patient's request, his Avastin/FOLFIRI, was discontinued after last dose given on May 28, 2020 and he was switched to oral Xeloda 625 mg per metered squared twice daily day 1 through 14 along with Avastin 7.5 mg/kg on day 1 and then repeat cycle every 3 weeks on 08/22/2020. Plan: Discussed with patient regarding his labs white blood count 8.6 hemoglobin 13.6 hematocrit 40.6 platelets 192,000, CMP done on September 27, 2020 shows sodium 132, CEA 3.8 Clinically, patient doing well with no new signs symptoms suggestive of disease progression, will proceed with his next 3 weekly dose of Avastin today and he will also start oral Xeloda for 2 weeks. And return to clinic in 3 weeks with CBC CMP and also request Dr. Esquivel to evaluate him for progressive shortness of breath, patient is a chronic smoker, patient was advised to quit smoking and was offered any assistance he may need Signed By: Paula Singh M.D. <<Signature on File>>
== END 2020-10-03 23:59 | disposition home or self-care (01) ==
LOC: ONCMED 05:42
PROVIDERS: Internal Medicine Medical Oncology; Nurse Practitioner; PCP Nurse Practitioner; Visit Provider Internal Medicine Hematology & Oncology
DX: Z51.11 Encounter for antineoplastic chemotherapy (principal); C20 Malignant neoplasm of rectum; C77.8 Secondary and unspecified malignant neoplasm of lymph nodes of multiple regions; C78.01 Secondary malignant neoplasm of right lung; C78.02 Secondary malignant neoplasm of left lung; N40.0 Benign prostatic hyperplasia without lower urinary tract symptoms; R97.20 Elevated prostate specific antigen [PSA]; Z79.899 Other long term (current) drug therapy
CPT/HCPCS: 36415; 36593; 80053; 81003; 82378; 85025; 96375; 96376; 96413; 99214; 99215; J2997; J7050; J9035

== ENCOUNTER 2020-10-24 06:11 | Outpatient (RCR) | payer MEDICARE, MEDICAID, SELFPAY ==
[2020-10-24 13:36] LABS: Add Urine Microscopic? NO; Charge for UA Resulting for Rev
[2020-10-24 13:42] LABS: Basophils % 0.5 %; Eosinophils % 0.1 %; Hematocrit 36.9 % (42.0-52.0); Hemoglobin 12.3 g/dL (11.7-16.6); Lymphocytes # 0.7 10^3/uL (0.8-4.8); Lymphocytes % 7.5 %; Mean Corpuscular HGB Conc 33.3 g/dL (30.0-36.0); Mean Corpuscular Hemoglobin 29.4 pg (28.0-34.0); Mean Corpuscular Volume 88.1 fL (80-94); Mean Platelet Volume 9.9 fL (7.4-10.4); Monocytes # 0.3 10^3/uL (0.2-0.9); Monocytes % 3.5 %; Neutrophils # 7.75 10^3/uL (1.8-7.7); Neutrophils % 87.8 %; Nucleated Red Blood Cells % 0 %; Platelet Count 209 10^3/cmm (130-400); Red Blood Count 4.19 10^6/uL (4.1-5.3); Red Cell Distribution Width 19.5 % (12.1-15.1); White Blood Count 8.8 10^3/uL (4.0-10.0)
[2020-10-24 13:49] LABS: Glucose Urine UA 4+ (Normal); Protein Urine Neg (Negative); Specific Gravity, Urine 1.015 (1.005-1.030); Urine Appearance Clear (CLEAR); Urine Color Yellow (Yellow); pH Urine 6 (5-7)
[2020-10-24 13:50] LABS: Bilirubin Urine Neg (Negative); Blood Urine Neg (Negative); Ketones Urine Negative (Negative); Leukocyte Esterase Urine Negative (Negative); Nitrate Urine Negative (Negative); Urobilinogen Urine 8 mg/dL (Negative)
[2020-10-24 14:13] LABS: Alanine Aminotransferase 20 U/L (0-41); Albumin Level 3.7 g/dL (3.5-5.2); Alkaline Phosphatase 95 IU/L (40-130); Anion Gap 16.5 (5-19); Aspartate Amino Transferase 14 U/L (0-40); Blood Urea Nitrogen 20 mg/dL (8-23); Calcium 8.7 mg/dL (8.5-10.5); Carbon Dioxide 23 mmol/L (22-29); Chloride 101 mmol/L (98-107); Globulin 2.4 g/dL (1.3-4.6); Glucose 171 mg/dL (65-115); Osmolality Calculated 289 mOsm/kg (285-295); Potassium 4.5 mmol/L (3.5-5.1); Sodium 136 mmol/L (136-145); Total Bilirubin 0.4 mg/dL (0.15-1.2); Total Protein 6.1 g/dL (6.6-8.7)
--- NOTE | 2020-10-24 14:55 | ONC FU_ITS ---
follow up note Patient: Oswaldo Khan Unit #: [id number]: 1945 Dicatated By: Paula Singh M.D.Date of Visit:Oct 24, 2020 Onc Med Follow-up/Prog Note History of Present Illness: Mr. Khan is a 74-year-old gentleman with history of abdominal pain and rectal bleed underwent colonoscopy and was found to have a rectal mass. A biopsy was obtained and it confirmed adenocarcinoma. Mr Khan then underwent low anterior resection on 03/05/2017. The final pathology report showed invasive adenocarcinoma , tumor invades perirectal adipose and 1 out of 18 lymph nodes was positive with extranodal extension and no loss of nuclear expression of MMR protein . Mr Khan also has history of elevated PSA. On 03/12/2017 his PSA was 35.20. As per patient he has seen Dr. Sunil Martinez , urologist, who is following him and CT scan of abdomen pelvis done on 03/19/2017 showed some prominent retroperitoneal lymph nodes somewhat more prominent than in 2013 Mr Khan took combined chemoradiation for 3 days the first week but then accidentally pulled his [place] cath and sustained urethral injury. He was evaluated by Dr. Martinez and underwent cystoscopy exam and reinsertion of Mc[place]ur cath, during this time combined chemoradiation therapy was on hold. He resumed 4 weeks after . Patient was advised to take Xeloda daily for 5 days per week during radiation therapy. His Xeloda daily on the days of radiation only was held for a few days due to persistent diarrhea. He concluded his chemoradiation on 11/03/2017. The diarrhea resolved at that time. Mr. Khan was advised to pursue adjuvant chemotherapy with FOLFOX. had a long discussion regarding the role of adjuvant chemotherapy. Mr Khan agreed to get Port-A-Cath placement but then at the last minute, he changed his mind. Since that time though, he has agreed to pursue the recommended adjuvant chemotherapy. He did agree to port placement. He completed 2 cycles of modified FOLFOX as of 03/04/2018. At his 03/16/2018 appointment, he stated had been having increased abdominal pain and decreased energy. He stated that he did not complete the full 2 days of the fluorouracil pump last one and this he felt like it was making me feel pretty bad . CT scan of the abdomen was done on on 03/19/2018 show stable rectosigmoid anastomosis with no recurrent or adjacent adenopathy. Moderate diffuse constipation. At the patient's request and his refusal to continue with 5-FU infusion, it was opted to change the chemotherapy plan of care to XELOX on 03/23/2018 and with the plan to give him 6 cycles. Mr. Khan had tolerated it well. 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 He completed 5/6 cycles. At his request, Adjuvant chemotherapy with Xelox concluded on 07/05/2018. CT scan of abdomen pelvis done on 09/23/2018 showed no acute findings but 1.3 cm nodule in the right lower lobe of the lung. CT PET scan done on 11/06/2018 showed enlarged prostate with diffusely increase uptake Malignant appearing right lung nodules, most likely from colonic carcinoma Malignant mediastinal lymph nodes, most likely from colonic carcinoma No evidence for local prostate metastatic nodes. Normal activity at rectal anastomosis. Mr Khan had followup in August [address] Esquivel, prenatal genetic counselor. A bronchoscopy was obtained and Mr Khan was diagnosed with sarcoidosis. This was treated with some success but follow-up CT scan of chest done on August 30, 2019 showed evidence of interval progression of disease with bilateral pulmonary nodules. The largest nodule in the right lower lobe posteriorly and right suprahilar with narrowing of right upper lobe bronchus and numerous additional new and progressive pulmonary nodules throughout both lungs right hilar lymphadenopathy. The patient underwent bronchoscopy and endobronchial ultrasound-guided transbronchial needle aspiration of station 11 R, showed significant macrophages and histiocytes but no malignancy. but there was a concern about possibility of malignancy so patient underwent second bronchoscopy on October 28, 2019 which showed a fungating mass was seen at the orifice of right upper lobe bronchus with complete occlusion of airways. The right middle lobe and right lower lobe bronchi were examined up to third subsegmental with no abnormality. Biopsy was obtained came back positive for metastatic colorectal adenocarcinoma as immunohistochemistry stain were positive for CK20 and CDX2. Mr Khan was started on systemic chemotherapy with a Avastin/FOLFIRI on November 16, 2019. Next generation/gene sequencing was ordered and on December 19, 2019, it reported HER-2/peggy negative and says it was not possible to calculate tumor mutational burden and MSI/MMR for the sample because the sequencing data did not reach the minimum depth of coverage required to provide a result on these biomarkers. Follow-up PET/CT from 02/18/2020 reports pulmonary nodules seen on the prior study were improved on the 02/18/2020 study. The index nodule in the right lower lobe that previously measured 2.7 x 1.8 cm with an SUV of 5.5 now measures 1.4 cm with an SUV of 3.2. The other right upper and left lung nodules are similarly improved. Increasing activity is present in the multiple FDG positive mediastinal nodes; as before, these are most consistent with sarcoidosis. These nodules are distributed in the right paratracheal, inferior right perihilar, subcarinal, prevascular and right hilar territories. The previously described right. Rectal node is unchanged in size but has an SUV of 4.2 up from 2.3 previously and consistent with recurrence. Rectal activity is prominent but is most likely physiologic. At that time, his last treatment was on 02/27/2020. As treatment had been on hold due to elevated blood pressure his blood pressure has been 195/110 last visit and is 189/104 today despite increasing his lisinopril to 10 mg daily.Continued with amlodipine 5 mg p.o. daily He was also complaining of sigificant headaches, so an MRI scan of the brain was ordered to rule out brain mets. The MRI was done on April 03, 2020 and showed no evidence of metastatic disease to brain and no other acute abnormality seen. Mr Khan has been noncompliant with his chemotherapy as he has skipped many scheduled chemotherapy treatments in the past. An example of his most recent noncompliance; his chemo was given on February 27, 2020 and he did return to the office until April 13, 2020, at that time he was scheduled for chemotherapy on April 16, 2020, but patient did not come. He did eventually resume chemotherapy on April 30, 2020. His last chemotherapy prior to April 30, 2020 was February 27, 2020. His last chemotherapy since April 30, 2020 was on May 28, 2020. He has missed his appointment for several reasons on his part such as just did not feel like coming???sick at stomach , he did realize he was getting chemotherapy that day and had not planned accordingly, etc. For his visit today his last chemotherapy was given on May 28, 2020. His last chemotherapy with 5-FU irinotecan and Avastin was given on May 28, 2020. He has had cardiac work-up with [facility]. He has had a stress test that is negative for cardiac disease. Follow-up CT PET scan done on July 28, 2020 showed the lateral right lower lobe nodule demonstrated ongoing positive response to therapy, now subcentimeter in size, with minimal FDG activity. The extensive mediastinal adenopathy seen previously now minimally FDG positive, with exception of the right hilar node which is now has an SUV of 6, down from 13.6 previously. The right perirectal node has SUV of 3.4 and is unchanged in size, indicating stable disease. No new lesion seen. He has had persistent frontal headaches. He was given oral antibiotic for presumed sinusitis with that his headaches did improve. Mr. Khan had a MRI of the brain with and without contrast on 04/05/2020 which reported no evidence of any intracranial enhancements or metastatic disease. There was mild small vessel changes and moderate parenchymal volume loss but no restricted diffusion to suggest acute ischemia. He has had persistent headaches and some concern that this could have been due to the palonosetron given his premedications. However since he started just Avastin and Xeloda August 22, 2020, his headaches have persisted. He is also complaining of progressive shortness of breath, but it is noted that he reports that he isstill smoking about pack a day. Mr Khan has not been too keen to continue systemic chemotherapy as he has just started feeling better-gradually since his full last chemotherapy dose was last given on May 28, 2020., Came for follow-up, denies any specific complaints, no fever chills, no nausea or vomiting, no diarrhea or constipation as per patient since he is was taken prednisone for his COPD exacerbation, he started having lower extremity edema earlier he was taking RADHA inhibitor/HCTZ combination but it was making him urinate a lot, so his PMD change his antihypertensive medicine to lisinopril 40 mg p.o. daily alone e.g. without hydrochlorothiazide. Otherwise no mouth sores, no jaundice, no abdominal pain, no skin rash, no diarrhea or constipation, tolerating Avastin/oral Xeloda well otherwise Medications: DULoxetine HCl 1 Capsule (of 20 mg) Capsule Delayed Release Particles Oral daily, Flomax 1 Tablet (of 0.4 mg) Capsule Oral daily, HYDROcodone-Acetaminophen 1 - 2 Tablet (of 10-325 mg) Oral q 4 hours PRN, Ibuprofen 3 Tablet (of 200 mg) Oral daily PRN, predniSONE 1 Tablet (of 20 mg) Oral daily, Xeloda 2 Tablet (of 500 mg) Oral b.i.d., Xeloda 2 Tablet (of 150 mg) Oral b.i.d. Allergies: No Known Allergies. Review of Systems: Review of Systems is not available for this patient. Vital Signs: Vitals are not available for this patient. Performance Status: 0 - Fully active, able to carry on all predisease activities without restrictions. (ECOG) Physical Examination: ENMT - No mouth sores, no thrush, no jaundice, Respiratory - Lungs are clear to auscultation, Cardiovascular - Regular rate and rhythm of heart , Abdomen - Soft, bowel sounds present, Extremities - Trace edema bilateral. Lab/Imaging: Test performed on Sep 12, 2020 09:34 Sodium 134 mmol/L Potassium 4.2 mmol/L Chloride 97 mmol/L CO2 27 mmol/L Anion Gap 14.2 BUN 23 mg/dL Creatinine 0.9 mg/dL Cr Clearance (Est) 90.7300 mL/min Glucose 155 mg/dL Osmolality - Calculated 285 mOsm/kg Calcium 9.5 mg/dL Protein, Total 6.9 g/dL Albumin 4.1 g/dL Globulin 2.8 g/dL Bilirubin, Total 0.3 mg/dL ALT (SGPT) 23 U/L AST (SGOT) 18 U/L Alkaline Phosphatase 83 IU/L WBC 8.3 10 3/uL RBC 5.05 10 6/uL HGB 13.5 g/dL HCT 41.4 % MCV 82.0 fL MCH 26.7 pg MCHC 32.6 g/dL RDW 16.6 % Platelet Count 264 10 3/cmm MPV 9.4 fL Neutrophils 6.90 10 3/uL Lymphocytes 0.9 10 3/uL Monocytes 0.3 10 3/uL Eosinophils 0.1 10 3/uL Basophils 0.1 10 3/uL Neutrophil % 83.5 % Lymphocyte % 11.0 % Monocyte % 3.6 % Eosinophil % 0.6 % Basophils % 1.1 % NRBC % 0 % CEA 3.2 ng/mL Test performed on Sep 12, 2020 09:25 Ua Color Yellow Ua Appearance Clear Ua Glucose Norm Ua Bilirubin Neg Ua Ketones Negative Ua Specific [place] 1.015 Ua Blood Neg Ua pH 6 Ua Protein Neg Ua Urobilinogen 1 mg/dL Ua Nitrites Negative Ua Leukocyte Esterase Negative Test performed on May 28, 2020 08:56 PSA 1.410 ng/mL Impression: Invasive adenocarcinoma of upper rectum status post APR on 03/05/2017 final pathology showed tumor size 5.5 x 5.4 cm low-grade, tumor invades perirectal adipose p T3, lymphovascular invasion present, no perineural invasion seen 1 out of 18 positive lymph nodes N1a , extranodal extension present N1 stage IIIA No loss of nuclear expression of MMR protein Elevated PSA, on 03/12/2017 it was 35.20 with prostate enlargement, being followed by Dr. Martinez. s/p chemoradiation with Xeloda as chemosensitizer. till 11/03/17 discussed with patient regarding the role of adjuvant chemotherapy in stage IIIa rectal cancer, as literature has shown adjuvant chemotherapy improves disease-free survival. Patient has been reluctant to consider chemotherapy because of severe diarrhea during chemoradiation for rectal CA. He was assured that we will adjust/modify his adjuvant chemotherapy to make it tolerable. Patient, now agreed to get port placement and for adjuvant chemotherapy modified FOLFOX every 2 weeks ???12. All the side effect and possible benefits were discussed in detail again and patient expressed understanding. Mr Khan agreed. He was referred back to Dr. Merritt for Port-A-Cath placement and began his first cycle of FOLFOX on 02/09/2018 .Patient developed abdominal pain for which he underwent CT scan of abdomen on 03/19/2018 showed moderate constipation, and stable rectosigmoid anastomosis with no recurrent mass or adjacent adenopathy and bilateral lower lobe pulmonary nodules are stable since 02/03/2017. No evidence of metastatic disease elsewhere. Following day patient had large bowel movement and since then no more abdominal pain. Patient expressed intolerance to 5-FU infusion chemotherapy and also consider it inconvenient so requesting Xeloda pills instead of 5-FU infusion. His treatment plan was changed to XELOX beginning 03/23/2018. He has tolerated it well thus far. He completed 5 of the planned [address] PET scan done on 11/06/2018 showed prostate is enlarged, measuring 6 cm in diameter with diffusely increased FDG activity, most intense in the central prostate. Normal tracer activity at the rectal anastomosis There are 2 pulmonary nodules in the right lower lobe and one in the right upper lobe, the index nodule in the right lower lobe measuring 1.1 x 1.6 cm with SUV of 3.5. Most consistent with metastatic disease, likely from colonic primary. Multiple hypermetabolic mediastinal lymph nodes are present, consistent with metastatic disease, in the inferior right perihilar 1.9 cm, 5.2 SUV. Subcarinal, prevascular, right paratracheal, 1.9 cm, 6.8 SUV. Right hilar territories. Subcentimeter nodes are also noted in the superior right paratracheal region. Too small to characterize. Mr. Khan had established care with Dr. Esquivel in pulmonology. A bronchoscopy was performed and he was found to have sarcoidosis which was treated with some success however a follow-up CT of the chest done on August 29, 2019 showed interval progression of disease with bilateral pulmonary nodules with the largest nodule in the right lower lobe posteriorly. There was activity in the right suprahilar with narrowing of the right upper lobe bronchus and numerous additional new and progressive pulmonary nodules throughout both lungs. There was right hilar lymphadenopathy. He underwent another bronchoscopy and endobronchial ultrasound-guided transbronchial needle aspiration of station 11 R. This showed significant macrophages and histiocytes but no malignancy. However given his history there was concern about the possibility of malignancy therefore he underwent a second bronchoscopy on October 28, 2019. This did show a fungating mass at the orifice of the right upper lobe bronchus with complete occlusion of both airways. The right middle lobe and right lower lobe bronchi were examined up to a third subsegmental with no abnormality. A biopsy was obtained and did report positive for metastatic colorectal adenocarcinoma. Immunohistochemistry stains were positive for CK20 and CDX2. Mr. Khan was advised to pursue pallitave chemotherapy with FOLFOX Avastin. He began his first dose on November 16, 2019. Follow-up PET/CT from 02/18/2020 reports pulmonary nodules seen on the prior study were improved on the 02/18/2020 study. The index nodule in the right lower lobe that previously measured 2.7 x 1.8 cm with an SUV of 5.5 now measures 1.4 cm with an SUV of 3.2. The other right upper and left lung nodules are similarly improved. Increasing activity is present in the multiple FDG positive mediastinal nodes; as before, these are most consistent with sarcoidosis. These nodules are distributed in the right paratracheal, inferior right perihilar, subcarinal, prevascular and right hilar territories. The previously described right. Rectal node is unchanged in size but has an SUV of 4.2 up from 2.3 previously and consistent with recurrence. Rectal activity is prominent but is most likely physiologic. patient resumed his systemic chemotherapy on April 30, 2020 and received next dose on May 28, 2020 and then after that did not take further treatment due to 1 or other reasons subsequently underwent follow-up CT PET scan on May 30, 2020 which shows improvement in the right lower lobe pulmonary nodule. Improvement on the resolution of uptake in mediastinal lymph nodes. Stable FDG positive right perirectal node. Patient declined to continue current systemic therapy with Avastin/FOLFIRI but agreed to take oral Xeloda/Avastin so, at patient's request, his Avastin/FOLFIRI, was discontinued after last dose given on May 28, 2020 and he was switched to oral Xeloda 625 mg per metered squared twice daily day 1 through 14 along with Avastin 7.5 mg/kg on day 1 and then repeat cycle every 3 weeks on 08/22/2020. Plan: Discussed with patient regarding his labs white blood count 8.8 hemoglobin 12.3 hematocrit 36.9 platelets 209,000 CMP within normal limits Clinically, patient is doing well with no new signs symptom suggestive of disease progression, at this point we will proceed with cycle #4 with Avastin/oral Xeloda, will proceed with his 3 weekly Avastin today and then he will start taking his oral Xeloda 1300 mg p.o. twice a day for 14 days. Patient return to clinic in 3 weeks with CBC CMP and follow-up CT PET scan to assess disease response. As far as mild lower extremity edema is concerned, patient was advised to reduce salt intake and he was also advised to follow-up with the PMDs instructions regarding diuretics and antihypertensive treatment Signed By: Paula Singh M.D. <<Signature on File>>
[2020-10-24] MEDS: sodium chloride 0.9% 250 ML 75 ML IV (15:07)
== END 2020-11-03 23:59 | disposition home or self-care (01) ==
LOC: ONCMED 06:11
PROVIDERS: PCP Nurse Practitioner; Visit Provider Internal Medicine Hematology & Oncology
DX: Z51.11 Encounter for antineoplastic chemotherapy (principal); C19 Malignant neoplasm of rectosigmoid junction; C78.01 Secondary malignant neoplasm of right lung; C77.8 Secondary and unspecified malignant neoplasm of lymph nodes of multiple regions; R97.20 Elevated prostate specific antigen [PSA]; N40.0 Benign prostatic hyperplasia without lower urinary tract symptoms; I10 Essential (primary) hypertension; Z79.899 Other long term (current) drug therapy; Z92.21 Personal history of antineoplastic chemotherapy
CPT/HCPCS: 80053; 81003; 85025; 96413; 99215; J7050; J9035

== ENCOUNTER 2020-12-03 05:35 | Outpatient (RCR) | payer MEDICARE, MEDICAID, SELFPAY ==
[2020-11-28 15:19] LABS: Basophils # 0.1 10^3/uL (0.0-0.1); Basophils % 0.6 %; Eosinophils # 0.1 10^3/uL (0.0-0.8); Eosinophils % 0.5 %; Hematocrit 42.6 % (42.0-52.0); Hemoglobin 14.1 g/dL (11.7-16.6); Lymphocytes # 0.9 10^3/uL (0.8-4.8); Lymphocytes % 8.4 %; Mean Corpuscular HGB Conc 33.1 g/dL (30.0-36.0); Mean Corpuscular Hemoglobin 29.3 pg (28.0-34.0); Mean Corpuscular Volume 88.6 fl (80-94); Mean Platelet Volume 10.3 fL (7.4-10.4); Monocytes # 0.3 10^3/uL (0.2-0.9); Monocytes % 3.2 %; Neutrophils # 8.95 10^3/uL (1.8-7.7); Neutrophils % 86.9 %; Nucleated Red Blood Cells % 0 %; Platelet Count 281 10^3/cmm (130-400); Red Blood Count 4.81 10^6/uL (4.1-5.3); Red Cell Distribution Width 17.3 % (12.1-15.1); White Blood Count 10.3 10^3/uL (4.0-10.0)
[2020-11-28 15:43] LABS: Alanine Aminotransferase 22 U/L (0-41); Albumin Level 4.3 g/dL (3.5-5.2); Alkaline Phosphatase 121 IU/L (40-130); Anion Gap 16.7 (5-19); Aspartate Amino Transferase 15 U/L (0-40); Blood Urea Nitrogen 17 mg/dL (8-23); Calcium 9.6 mg/dL (8.5-10.5); Carbon Dioxide 25 mmol/L (22-29); Chloride 98 mmol/L (98-107); Globulin 2.6 g/dL (1.3-4.6); Glucose 160 mg/dL (65-115); Osmolality Calculated 285 mOsm/kg (285-295); Potassium 4.7 mmol/L (3.5-5.1); Sodium 135 mmol/L (136-145); Total Bilirubin 0.4 mg/dL (0.15-1.2); Total Protein 6.9 g/dL (6.6-8.7)
--- NOTE | 2020-12-02 20:38 | ONC FU_ITS ---
follow up note Patient: Oswaldo Khan Unit #: [id number]: 1945 Dicatated By: Paula Singh M.D.Date of Visit:Nov 28, 2020 Onc Med Follow-up/Prog Note History of Present Illness: Mr. Khan is a 74-year-old gentleman with history of abdominal pain and rectal bleed underwent colonoscopy and was found to have a rectal mass. A biopsy was obtained and it confirmed adenocarcinoma. Mr Khan then underwent low anterior resection on 03/05/2017. The final pathology report showed invasive adenocarcinoma , tumor invades perirectal adipose and 1 out of 18 lymph nodes was positive with extranodal extension and no loss of nuclear expression of MMR protein . Mr Khan also has history of elevated PSA. On 03/12/2017 his PSA was 35.20. As per patient he has seen Dr. Sunil Martinez , urologist, who is following him and CT scan of abdomen pelvis done on 03/19/2017 showed some prominent retroperitoneal lymph nodes somewhat more prominent than in 2013 Mr Khan took combined chemoradiation for 3 days the first week but then accidentally pulled his [place] cath and sustained urethral injury. He was evaluated by Dr. Martinez and underwent cystoscopy exam and reinsertion of [place] cath, during this time combined chemoradiation therapy was on hold. He resumed 4 weeks after . Patient was advised to take Xeloda daily for 5 days per week during radiation therapy. His Xeloda daily on the days of radiation only was held for a few days due to persistent diarrhea. He concluded his chemoradiation on 11/03/2017. The diarrhea resolved at that time. Mr. Khan was advised to pursue adjuvant chemotherapy with FOLFOX. had a long discussion regarding the role of adjuvant chemotherapy. Mr Khan agreed to get Port-A-Cath placement but then at the last minute, he changed his mind. Since that time though, he has agreed to pursue the recommended adjuvant chemotherapy. He did agree to port placement. He completed 2 cycles of modified FOLFOX as of 03/04/2018. At his 03/16/2018 appointment, he stated had been having increased abdominal pain and decreased energy. He stated that he did not complete the full 2 days of the fluorouracil pump last one and this he felt like it was making me feel pretty bad . CT scan of the abdomen was done on on 03/19/2018 show stable rectosigmoid anastomosis with no recurrent or adjacent adenopathy. Moderate diffuse constipation. At the patient's request and his refusal to continue with 5-FU infusion, it was opted to change the chemotherapy plan of care to XELOX on 03/23/2018 and with the plan to give him 6 cycles. Mr. Khan had tolerated it well. 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 He completed 5/6 cycles. At his request, Adjuvant chemotherapy with Xelox concluded on 07/05/2018. CT scan of abdomen pelvis done on 09/23/2018 showed no acute findings but 1.3 cm nodule in the right lower lobe of the lung. CT PET scan done on 11/06/2018 showed enlarged prostate with diffusely increase uptake Malignant appearing right lung nodules, most likely from colonic carcinoma Malignant mediastinal lymph nodes, most likely from colonic carcinoma No evidence for local prostate metastatic nodes. Normal activity at rectal anastomosis. Mr Khan had followup in August [address] Esquivel, nuclear fuels research engineer. A bronchoscopy was obtained and Mr Khan was diagnosed with sarcoidosis. This was treated with some success but follow-up CT scan of chest done on August 30, 2019 showed evidence of interval progression of disease with bilateral pulmonary nodules. The largest nodule in the right lower lobe posteriorly and right suprahilar with narrowing of right upper lobe bronchus and numerous additional new and progressive pulmonary nodules throughout both lungs right hilar lymphadenopathy. The patient underwent bronchoscopy and endobronchial ultrasound-guided transbronchial needle aspiration of station 11 R, showed significant macrophages and histiocytes but no malignancy. but there was a concern about possibility of malignancy so patient underwent second bronchoscopy on October 28, 2019 which showed a fungating mass was seen at the orifice of right upper lobe bronchus with complete occlusion of airways. The right middle lobe and right lower lobe bronchi were examined up to third subsegmental with no abnormality. Biopsy was obtained came back positive for metastatic colorectal adenocarcinoma as immunohistochemistry stain were positive for CK20 and CDX2. Mr Khan was started on systemic chemotherapy with a Avastin/FOLFIRI on November 16, 2019. Next generation/gene sequencing was ordered and on December 19, 2019, it reported HER-2/peggy negative and says it was not possible to calculate tumor mutational burden and MSI/MMR for the sample because the sequencing data did not reach the minimum depth of coverage required to provide a result on these biomarkers. Follow-up PET/CT from 02/18/2020 reports pulmonary nodules seen on the prior study were improved on the 02/18/2020 study. The index nodule in the right lower lobe that previously measured 2.7 x 1.8 cm with an SUV of 5.5 now measures 1.4 cm with an SUV of 3.2. The other right upper and left lung nodules are similarly improved. Increasing activity is present in the multiple FDG positive mediastinal nodes; as before, these are most consistent with sarcoidosis. These nodules are distributed in the right paratracheal, inferior right perihilar, subcarinal, prevascular and right hilar territories. The previously described right. Rectal node is unchanged in size but has an SUV of 4.2 up from 2.3 previously and consistent with recurrence. Rectal activity is prominent but is most likely physiologic. At that time, his last treatment was on 02/27/2020. As treatment had been on hold due to elevated blood pressure his blood pressure has been 195/110 last visit and is 189/104 today despite increasing his lisinopril to 10 mg daily.Continued with amlodipine 5 mg p.o. daily He was also complaining of sigificant headaches, so an MRI scan of the brain was ordered to rule out brain mets. The MRI was done on April 03, 2020 and showed no evidence of metastatic disease to brain and no other acute abnormality seen. Mr Khna has been noncompliant with his chemotherapy as he has skipped many scheduled chemotherapy treatments in the past. An example of his most recent noncompliance; his chemo was given on February 27, 2020 and he did return to the office until April 13, 2020, at that time he was scheduled for chemotherapy on April 16, 2020, but patient did not come. He did eventually resume chemotherapy on April 30, 2020. His last chemotherapy prior to April 30, 2020 was February 27, 2020. His last chemotherapy since April 30, 2020 was on May 28, 2020. He has missed his appointment for several reasons on his part such as just did not feel like coming???sick at stomach , he did realize he was getting chemotherapy that day and had not planned accordingly, etc. For his visit today his last chemotherapy was given on May 28, 2020. His last chemotherapy with 5-FU irinotecan and Avastin was given on May 28, 2020. He has had cardiac work-up with [facility]. He has had a stress test that is negative for cardiac disease. Follow-up CT PET scan done on July 28, 2020 showed the lateral right lower lobe nodule demonstrated ongoing positive response to therapy, now subcentimeter in size, with minimal FDG activity. The extensive mediastinal adenopathy seen previously now minimally FDG positive, with exception of the right hilar node which is now has an SUV of 6, down from 13.6 previously. The right perirectal node has SUV of 3.4 and is unchanged in size, indicating stable disease. No new lesion seen. He has had persistent frontal headaches. He was given oral antibiotic for presumed sinusitis with that his headaches did improve. Mr. Khan had a MRI of the brain with and without contrast on 04/05/2020 which reported no evidence of any intracranial enhancements or metastatic disease. There was mild small vessel changes and moderate parenchymal volume loss but no restricted diffusion to suggest acute ischemia. He has had persistent headaches and some concern that this could have been due to the palonosetron given his premedications. However since he started just Avastin and Xeloda August 22, 2020, his headaches have persisted. He is also complaining of progressive shortness of breath, but it is noted that he reports that he isstill smoking about pack a day. Mr Khan has not been too keen to continue systemic chemotherapy as he has just started feeling better-gradually since his full last chemotherapy dose was last given on May 28, 2020., Follow-up CT PET scan done on November 24, 2020 shows stable bilateral pulmonary nodules, remain subcentimeter in size with minimal FDG activity. No significant change in right hilar node. Minimal progression of right perirectal node which is slightly prominent with SUV of 4.5, a new T6 compression fracture Came for follow-up, complaining of epigastric pain radiating to or from mid back, denies pain radiating to lower extremities, denies lower extremity numbness or focal weakness denies any trauma to his mid back, denies urine or stool incontinence, denies any jaundice denies any constipation or diarrhea, denies any hemoptysis or hematemesis tolerating oral Xeloda and Avastin well but patient is somewhat noncompliant with his schedule for treatment. Medications: DULoxetine HCl 1 Capsule (of 20 mg) Capsule Delayed Release Particles Oral daily, Flomax 1 Tablet (of 0.4 mg) Capsule Oral daily, HYDROcodone-Acetaminophen 1 - 2 Tablet (of 10-325 mg) Oral q 4 hours PRN, Ibuprofen 3 Tablet (of 200 mg) Oral daily PRN, Lisinopril (40 mg) Tablet Oral daily, predniSONE 1 Tablet (of 20 mg) Oral daily, Xeloda 2 Tablet (of 500 mg) Oral b.i.d., Xeloda 2 Tablet (of 150 mg) Oral b.i.d. Allergies: No Known Allergies. Review of Systems: Review of Systems is not available for this patient. Vital Signs: Performed on Nov 28, 2020 15:46 Height - 70.00 in Weight - 189.8 lbs (LOW) BSA - 2.04 sq.m BMI - 27.23 Temperature - 97 F (LOW) Pulse - 105 /min (HIGH) Respiration - 18 /min BP - 157/90 mm(hg) (HIGH) O2 Sat - 97 % Pain - 8 Fatigue - 6 Performance Status: 0 - Fully active, able to carry on all predisease activities without restrictions. (ECOG) Physical Examination: ENMT - , No mouth sores, no thrush, no jaundice, Respiratory - Lungs are clear to auscultation, Cardiovascular - Regular rate and rhythm of heart, Abdomen - Soft, bowel sounds present, Extremities - No visible edema. Lab/Imaging: Test performed on Sep 12, 2020 09:34 Sodium 134 mmol/L Potassium 4.2 mmol/L Chloride 97 mmol/L CO2 27 mmol/L Anion Gap 14.2 BUN 23 mg/dL Creatinine 0.9 mg/dL Cr Clearance (Est) 90.7300 mL/min Glucose 155 mg/dL Osmolality - Calculated 285 mOsm/kg Calcium 9.5 mg/dL Protein, Total 6.9 g/dL Albumin 4.1 g/dL Globulin 2.8 g/dL Bilirubin, Total 0.3 mg/dL ALT (SGPT) 23 U/L AST (SGOT) 18 U/L Alkaline Phosphatase 83 IU/L WBC 8.3 10 3/uL RBC 5.05 10 6/uL HGB 13.5 g/dL HCT 41.4 % MCV 82.0 fL MCH 26.7 pg MCHC 32.6 g/dL RDW 16.6 % Platelet Count 264 10 3/cmm MPV 9.4 fL Neutrophils 6.90 10 3/uL Lymphocytes 0.9 10 3/uL Monocytes 0.3 10 3/uL Eosinophils 0.1 10 3/uL Basophils 0.1 10 3/uL Neutrophil % 83.5 % Lymphocyte % 11.0 % Monocyte % 3.6 % Eosinophil % 0.6 % Basophils % 1.1 % NRBC % 0 % CEA 3.2 ng/mL Test performed on Sep 12, 2020 09:25 Ua Color Yellow Ua Appearance Clear Ua Glucose Norm Ua Bilirubin Neg Ua Ketones Negative Ua Specific [place] 1.015 Ua Blood Neg Ua pH 6 Ua Protein Neg Ua Urobilinogen 1 mg/dL Ua Nitrites Negative Ua Leukocyte Esterase Negative Impression: Invasive adenocarcinoma of upper rectum status post APR on 03/05/2017 final pathology showed tumor size 5.5 x 5.4 cm low-grade, tumor invades perirectal adipose p T3, lymphovascular invasion present, no perineural invasion seen 1 out of 18 positive lymph nodes N1a , extranodal extension present N1 stage IIIA No loss of nuclear expression of MMR protein Elevated PSA, on 03/12/2017 it was 35.20 with prostate enlargement, being followed by Dr. Martinez. s/p chemoradiation with Xeloda as chemosensitizer. till 11/03/17 discussed with patient regarding the role of adjuvant chemotherapy in stage IIIa rectal cancer, as literature has shown adjuvant chemotherapy improves disease-free survival. Patient has been reluctant to consider chemotherapy because of severe diarrhea during chemoradiation for rectal CA. He was assured that we will adjust/modify his adjuvant chemotherapy to make it tolerable. Patient, now agreed to get port placement and for adjuvant chemotherapy modified FOLFOX every 2 weeks ???12. All the side effect and possible benefits were discussed in detail again and patient expressed understanding. Mr Khan agreed. He was referred back to Dr. Merritt for Port-A-Cath placement and began his first cycle of FOLFOX on 02/09/2018 .Patient developed abdominal pain for which he underwent CT scan of abdomen on 03/19/2018 showed moderate constipation, and stable rectosigmoid anastomosis with no recurrent mass or adjacent adenopathy and bilateral lower lobe pulmonary nodules are stable since 02/03/2017. No evidence of metastatic disease elsewhere. Following day patient had large bowel movement and since then no more abdominal pain. Patient expressed intolerance to 5-FU infusion chemotherapy and also consider it inconvenient so requesting Xeloda pills instead of 5-FU infusion. His treatment plan was changed to XELOX beginning 03/23/2018. He has tolerated it well thus far. He completed 5 of the planned [address] PET scan done on 11/06/2018 showed prostate is enlarged, measuring 6 cm in diameter with diffusely increased FDG activity, most intense in the central prostate. Normal tracer activity at the rectal anastomosis There are 2 pulmonary nodules in the right lower lobe and one in the right upper lobe, the index nodule in the right lower lobe measuring 1.1 x 1.6 cm with SUV of 3.5. Most consistent with metastatic disease, likely from colonic primary. Multiple hypermetabolic mediastinal lymph nodes are present, consistent with metastatic disease, in the inferior right perihilar 1.9 cm, 5.2 SUV. Subcarinal, prevascular, right paratracheal, 1.9 cm, 6.8 SUV. Right hilar territories. Subcentimeter nodes are also noted in the superior right paratracheal region. Too small to characterize. Mr. Khan had established care with Dr. Esquivel in pulmonology. A bronchoscopy was performed and he was found to have sarcoidosis which was treated with some success however a follow-up CT of the chest done on August 29, 2019 showed interval progression of disease with bilateral pulmonary nodules with the largest nodule in the right lower lobe posteriorly. There was activity in the right suprahilar with narrowing of the right upper lobe bronchus and numerous additional new and progressive pulmonary nodules throughout both lungs. There was right hilar lymphadenopathy. He underwent another bronchoscopy and endobronchial ultrasound-guided transbronchial needle aspiration of station 11 R. This showed significant macrophages and histiocytes but no malignancy. However given his history there was concern about the possibility of malignancy therefore he underwent a second bronchoscopy on October 28, 2019. This did show a fungating mass at the orifice of the right upper lobe bronchus with complete occlusion of both airways. The right middle lobe and right lower lobe bronchi were examined up to a third subsegmental with no abnormality. A biopsy was obtained and did report positive for metastatic colorectal adenocarcinoma. Immunohistochemistry stains were positive for CK20 and CDX2. Mr. Khan was advised to pursue pallitave chemotherapy with FOLFOX Avastin. He began his first dose on November 16, 2019. Follow-up PET/CT from 02/18/2020 reports pulmonary nodules seen on the prior study were improved on the 02/18/2020 study. The index nodule in the right lower lobe that previously measured 2.7 x 1.8 cm with an SUV of 5.5 now measures 1.4 cm with an SUV of 3.2. The other right upper and left lung nodules are similarly improved. Increasing activity is present in the multiple FDG positive mediastinal nodes; as before, these are most consistent with sarcoidosis. These nodules are distributed in the right paratracheal, inferior right perihilar, subcarinal, prevascular and right hilar territories. The previously described right. Rectal node is unchanged in size but has an SUV of 4.2 up from 2.3 previously and consistent with recurrence. Rectal activity is prominent but is most likely physiologic. patient resumed his systemic chemotherapy on April 30, 2020 and received next dose on May 28, 2020 and then after that did not take further treatment due to 1 or other reasons subsequently underwent follow-up CT PET scan on May 30, 2020 which shows improvement in the right lower lobe pulmonary nodule. Improvement on the resolution of uptake in mediastinal lymph nodes. Stable FDG positive right perirectal node. Patient declined to continue current systemic therapy with Avastin/FOLFIRI but agreed to take oral Xeloda/Avastin so, at patient's request, his Avastin/FOLFIRI, was discontinued after last dose given on May 28, 2020 and he was switched to oral Xeloda 625 mg per metered squared twice daily day 1 through 14 along with Avastin 7.5 mg/kg on day 1 and then repeat cycle every 3 weeks on 08/22/2020. Follow-up CT PET scan done on November 24, 2020 shows tiny, bilateral pulmonary nodules seen previously are unchanged on current study. Right hilar lymph node is stable with SUV of 7,. No significant increase from 6 on previous study. The right perirectal node is slightly more prominent on the current study with SUV of 4.5 consistent with mild progression and a new T6 vertebral body compression fracture Plan: Discussed with patient regarding his labs white blood count 10.3 hemoglobin 14.1 hematocrit 42.6 platelets 281,000 and follow-up CT PET scan which shows stable disease except mild prominence in perirectal lymph node and new T6 vertebral compression fracture Clinically, patient is doing reasonably well but now with mild to moderate distress due to epigastric pain radiating to and from mid back for the last couple of weeks, more progressive but denies any trauma to his back denies any pain radiating to lower extremities denies any lower extremity numbness or weakness denies any urine or stool incontinence. At this point, we will refer him to orthopedics for evaluation and also consider MRI scan of thoracic spine with special attention to T6 vertebra, patient was advised in case there is a worsening of symptoms especially mid back pain or pain radiating to lower extremity or lower extremity weakness he need to go to hospital immediately otherwise return to clinic on Thursday for his next dose of Avastin and at that time he will start his oral Xeloda for 14 days. In the meantime we will give him dexamethasone 4 mg p.o. 3 times daily for 4 days for mid back pain and while continue with current narcotic Signed By: Paula Singh M.D. <<Signature on File>>
[2020-12-03] MEDS: sodium chloride 0.9% 250 ML 75 ML IV (14:30)
== END 2020-12-04 23:59 | disposition home or self-care (01) ==
LOC: ONCMED 05:35
PROVIDERS: PCP Nurse Practitioner; Visit Provider Internal Medicine Hematology & Oncology
DX: Z51.11 Encounter for antineoplastic chemotherapy (principal); C19 Malignant neoplasm of rectosigmoid junction; C61 Malignant neoplasm of prostate; C78.01 Secondary malignant neoplasm of right lung; R10.13 Epigastric pain; Z79.899 Other long term (current) drug therapy; Z92.21 Personal history of antineoplastic chemotherapy
CPT/HCPCS: 36415; 80053; 85025; 96413; 99214; J7050; J9035

== ENCOUNTER → 2020-12-13 10:58 | Outpatient (BNVA) | payer MEDICARE, MEDICAID, SELFPAY | PROVIDERS: PCP Nurse Practitioner; Visit Provider Nurse Practitioner Family | DX: M79.89 Other specified soft tissue disorders (principal); R23.3 Spontaneous ecchymoses | CPT/HCPCS: 80053; 85025 ==

== ENCOUNTER 2020-12-18 09:09 | Outpatient (CLI) | payer MEDICARE, MEDICAID, SELFPAY ==
--- NOTE | 2020-12-18 09:30 | MR_ITS ---
WS: [id number] MRI THORACIC SPINE with and without contrast. HISTORY: HX OF CANCER;BACK PAIN COMPARISON: 07/05/[address] 11/24/2020 TECHNIQUE: Multiplanar sequences are performed in sagittal and axial planes. Sagittal and axial T1 fa t sat sequences post-MultiHance 20 cc IV. Moderate increase in thoracic kyphosis centered in the midthoracic spine. Wedge-shaped compression fr actures are acute to subacute. There is diffuse increased signal throughout T7 and T8 vertebral rebecca s with very minimal extension into the posterior elements. Approximately 40% compression deformity wi thout retropulsion. There is no enhancement or associated soft tissue mass. T1-2: Mild foraminal narrowing. T2-3: Normal. T3-4: Normal. T4-5: Normal. T5-6: Normal. T6-7: Normal. T7-8: Mild facet hypertrophy. No stenosis. T8-9: Mild bilateral facet arthritis. T9-10: Mild facet arthritis. T10-11: Normal. T11-12: Bilateral nerve root sleeve diverticulum. Mild facet arthritis. Atherosclerotic changes and mild ectasia within the visualized aorta. MR/MR thoracic spine wo/w [id number] IMPRESSION: 1. Acute to subacute compression fractures within T7 and T8 without enhancemen t. These are most likely compression fractures without metastatic disease. 2. Multilevel areas of facet joint arthritis. No high-grade central or foramin al stenosis. 3. Increase in thoracic kyphosis.
[2020-12-18] MEDS: gadobenate dimeglumine 20 mL vial IV (10:27)
== END 2020-12-18 09:10 | disposition home or self-care (01) ==
LOC: RADSHAW 09:10
PROVIDERS: PCP Nurse Practitioner; Visit Provider Internal Medicine Hematology & Oncology
DX: Z85.9 Personal history of malignant neoplasm, unspecified (principal); M54.6 Pain in thoracic spine; S22.069A Unspecified fracture of T7-T8 vertebra, initial encounter for closed fracture; X58.XXXA Exposure to other specified factors, initial encounter; M40.204 Unspecified kyphosis, thoracic region
CPT/HCPCS: 72157; A9577

== ENCOUNTER 2020-12-31 06:40 | Outpatient (RCR) | payer MEDICARE, MEDICAID, SELFPAY ==
[2020-12-31 10:02] LABS: Basophils # 0.1 10^3/uL (0.0-0.1); Eosinophils # 0.1 10^3/uL (0.0-0.8); Eosinophils % 1.7 %; Hematocrit 42.3 % (42.0-52.0); Lymphocytes # 1.5 10^3/uL (0.8-4.8); Lymphocytes % 18.1 %; Mean Corpuscular HGB Conc 33.1 g/dL (30.0-36.0); Mean Corpuscular Hemoglobin 29.7 pg (28.0-34.0); Mean Corpuscular Volume 89.6 fl (80-94); Mean Platelet Volume 9.5 fL (7.4-10.4); Monocytes # 0.8 10^3/uL (0.2-0.9); Neutrophils # 5.81 10^3/uL (1.8-7.7); Neutrophils % 69.5 %; Nucleated Red Blood Cells % 0 %; Platelet Count 304 10^3/cmm (130-400); Red Blood Count 4.72 10^6/uL (4.1-5.3); White Blood Count 8.4 10^3/uL (4.0-10.0)
[2020-12-31 10:35] LABS: Alanine Aminotransferase 31 U/L (0-41); Albumin Level 3.6 g/dL (3.5-5.2); Alkaline Phosphatase 180 IU/L (40-130); Aspartate Amino Transferase 21 U/L (0-40); Blood Urea Nitrogen 17 mg/dL (8-23); Calcium 9.6 mg/dL (8.5-10.5); Carbon Dioxide 27 mmol/L (22-29); Chloride 95 mmol/L (98-107); Globulin 2.9 g/dL (1.3-4.6); Glucose 130 mg/dL (65-115); Osmolality Calculated 279 mOsm/kg (285-295); Sodium 133 mmol/L (136-145); Total Bilirubin 0.3 mg/dL (0.15-1.2); Total Protein 6.5 g/dL (6.6-8.7)
--- NOTE | 2020-12-31 11:20 | ONC FU_ITS ---
follow up note Patient: Oswaldo Khan Unit #: [id number]: 1945 Dicatated By: Paula Singh M.D.Date of Visit:Dec 31, 2020 Onc Med Follow-up/Prog Note History of Present Illness: Mr. Khan is a 74-year-old gentleman with history of abdominal pain and rectal bleed underwent colonoscopy and was found to have a rectal mass. A biopsy was obtained and it confirmed adenocarcinoma. Mr Khan then underwent low anterior resection on 03/05/2017. The final pathology report showed invasive adenocarcinoma , tumor invades perirectal adipose and 1 out of 18 lymph nodes was positive with extranodal extension and no loss of nuclear expression of MMR protein . Mr Khan also has history of elevated PSA. On 03/12/2017 his PSA was 35.20. As per patient he has seen Dr. Sunil Martinez , urologist, who is following him and CT scan of abdomen pelvis done on 03/19/2017 showed some prominent retroperitoneal lymph nodes somewhat more prominent than in 2013 Mr Khan took combined chemoradiation for 3 days the first week but then accidentally pulled his [place]ur cath and sustained urethral injury. He was evaluated by Dr. Martinez and underwent cystoscopy exam and reinsertion of Mc[place]ur cath, during this time combined chemoradiation therapy was on hold. He resumed 4 weeks after . Patient was advised to take Xeloda daily for 5 days per week during radiation therapy. His Xeloda daily on the days of radiation only was held for a few days due to persistent diarrhea. He concluded his chemoradiation on 11/03/2017. The diarrhea resolved at that time. Mr. Khan was advised to pursue adjuvant chemotherapy with FOLFOX. had a long discussion regarding the role of adjuvant chemotherapy. Mr Khan agreed to get Port-A-Cath placement but then at the last minute, he changed his mind. Since that time though, he has agreed to pursue the recommended adjuvant chemotherapy. He did agree to port placement. He completed 2 cycles of modified FOLFOX as of 03/04/2018. At his 03/16/2018 appointment, he stated had been having increased abdominal pain and decreased energy. He stated that he did not complete the full 2 days of the fluorouracil pump last one and this he felt like it was making me feel pretty bad . CT scan of the abdomen was done on on 03/19/2018 show stable rectosigmoid anastomosis with no recurrent or adjacent adenopathy. Moderate diffuse constipation. At the patient's request and his refusal to continue with 5-FU infusion, it was opted to change the chemotherapy plan of care to XELOX on 03/23/2018 and with the plan to give him 6 cycles. Mr. Khan had tolerated it well. 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 He completed 5/6 cycles. At his request, Adjuvant chemotherapy with Xelox concluded on 07/05/2018. CT scan of abdomen pelvis done on 09/23/2018 showed no acute findings but 1.3 cm nodule in the right lower lobe of the lung. CT PET scan done on 11/06/2018 showed enlarged prostate with diffusely increase uptake Malignant appearing right lung nodules, most likely from colonic carcinoma Malignant mediastinal lymph nodes, most likely from colonic carcinoma No evidence for local prostate metastatic nodes. Normal activity at rectal anastomosis. Mr Khan had followup in August [address] Esquivel, heel edge inker machine. A bronchoscopy was obtained and Mr Khan was diagnosed with sarcoidosis. This was treated with some success but follow-up CT scan of chest done on August 30, 2019 showed evidence of interval progression of disease with bilateral pulmonary nodules. The largest nodule in the right lower lobe posteriorly and right suprahilar with narrowing of right upper lobe bronchus and numerous additional new and progressive pulmonary nodules throughout both lungs right hilar lymphadenopathy. The patient underwent bronchoscopy and endobronchial ultrasound-guided transbronchial needle aspiration of station 11 R, showed significant macrophages and histiocytes but no malignancy. but there was a concern about possibility of malignancy so patient underwent second bronchoscopy on October 28, 2019 which showed a fungating mass was seen at the orifice of right upper lobe bronchus with complete occlusion of airways. The right middle lobe and right lower lobe bronchi were examined up to third subsegmental with no abnormality. Biopsy was obtained came back positive for metastatic colorectal adenocarcinoma as immunohistochemistry stain were positive for CK20 and CDX2. Mr Khan was started on systemic chemotherapy with a Avastin/FOLFIRI on November 16, 2019. Next generation/gene sequencing was ordered and on December 19, 2019, it reported HER-2/peggy negative and says it was not possible to calculate tumor mutational burden and MSI/MMR for the sample because the sequencing data did not reach the minimum depth of coverage required to provide a result on these biomarkers. Follow-up PET/CT from 02/18/2020 reports pulmonary nodules seen on the prior study were improved on the 02/18/2020 study. The index nodule in the right lower lobe that previously measured 2.7 x 1.8 cm with an SUV of 5.5 now measures 1.4 cm with an SUV of 3.2. The other right upper and left lung nodules are similarly improved. Increasing activity is present in the multiple FDG positive mediastinal nodes; as before, these are most consistent with sarcoidosis. These nodules are distributed in the right paratracheal, inferior right perihilar, subcarinal, prevascular and right hilar territories. The previously described right. Rectal node is unchanged in size but has an SUV of 4.2 up from 2.3 previously and consistent with recurrence. Rectal activity is prominent but is most likely physiologic. At that time, his last treatment was on 02/27/2020. As treatment had been on hold due to elevated blood pressure his blood pressure has been 195/110 last visit and is 189/104 today despite increasing his lisinopril to 10 mg daily.Continued with amlodipine 5 mg p.o. daily He was also complaining of sigificant headaches, so an MRI scan of the brain was ordered to rule out brain mets. The MRI was done on April 03, 2020 and showed no evidence of metastatic disease to brain and no other acute abnormality seen. Mr Khan has been noncompliant with his chemotherapy as he has skipped many scheduled chemotherapy treatments in the past. An example of his most recent noncompliance; his chemo was given on February 27, 2020 and he did return to the office until April 13, 2020, at that time he was scheduled for chemotherapy on April 16, 2020, but patient did not come. He did eventually resume chemotherapy on April 30, 2020. His last chemotherapy prior to April 30, 2020 was February 27, 2020. His last chemotherapy since April 30, 2020 was on May 28, 2020. He has missed his appointment for several reasons on his part such as just did not feel like coming???sick at stomach , he did realize he was getting chemotherapy that day and had not planned accordingly, etc. For his visit today his last chemotherapy was given on May 28, 2020. His last chemotherapy with 5-FU irinotecan and Avastin was given on May 28, 2020. He has had cardiac work-up with [facility]. He has had a stress test that is negative for cardiac disease. Follow-up CT PET scan done on July 28, 2020 showed the lateral right lower lobe nodule demonstrated ongoing positive response to therapy, now subcentimeter in size, with minimal FDG activity. The extensive mediastinal adenopathy seen previously now minimally FDG positive, with exception of the right hilar node which is now has an SUV of 6, down from 13.6 previously. The right perirectal node has SUV of 3.4 and is unchanged in size, indicating stable disease. No new lesion seen. He has had persistent frontal headaches. He was given oral antibiotic for presumed sinusitis with that his headaches did improve. Mr. Khan had a MRI of the brain with and without contrast on 04/05/2020 which reported no evidence of any intracranial enhancements or metastatic disease. There was mild small vessel changes and moderate parenchymal volume loss but no restricted diffusion to suggest acute ischemia. He has had persistent headaches and some concern that this could have been due to the palonosetron given his premedications. However since he started just Avastin and Xeloda August 22, 2020, his headaches have persisted. He is also complaining of progressive shortness of breath, but it is noted that he reports that he isstill smoking about pack a day. Mr Khan has not been too keen to continue systemic chemotherapy as he has just started feeling better-gradually since his full last chemotherapy dose was last given on May 28, 2020., Follow-up CT PET scan done on November 24, 2020 shows stable bilateral pulmonary nodules, remain subcentimeter in size with minimal FDG activity. No significant change in right hilar node. Minimal progression of right perirectal node which is slightly prominent with SUV of 4.5, a new T6 compression fracture, Subsequently , patient underwent MRI scan of thoracic spine on December 18, 2020 which shows wedge-shaped compression fractures are acute to subacute and diffuse increased signal throughout T7 and T8 vertebral body with very minimal extension into posterior elements. Approximately 40% compression deformity without retropulsion. No enhancement or associated soft tissue mass seen. Came for follow-up, denies any specific complaint except persistent mid back pain with no radiation to lower extremity, urine no urine or stool incontinence, patient underwent MRI scan of thoracic spine on December 18, 2020 which shows wedge-shaped compression fractures are acute to subacute and diffuse increased signal throughout T7 and T8 vertebral body with very minimal extension into posterior elements. Approximately 40% compression deformity without retropulsion. No enhancement or associated soft tissue mass seen. Patient was referred to orthopedics but as per orthopedic office patient was no-show but patient said he did not get any call from orthopedics office. We will reschedule him Patient is also complaining of bipedal edema, his PMD gave him Lasix with that his swelling resolved and he is requesting for prescription. Patient said he consume a lot of salt as he likes it. But denies any mouth sores denies any diarrhea or constipation denies any fever or chills denies any jaundice, denies any abdominal pain, tolerating Avastin/Xeloda well otherwise Medications: DULoxetine HCl 1 Capsule (of 20 mg) Capsule Delayed Release Particles Oral daily, Flomax 1 Tablet (of 0.4 mg) Capsule Oral daily, HYDROcodone-Acetaminophen 1 - 2 Tablet (of 10-325 mg) Oral q 4 hours PRN, Ibuprofen 3 Tablet (of 200 mg) Oral daily PRN, Lisinopril (40 mg) Tablet Oral daily, predniSONE 1 Tablet (of 20 mg) Oral daily, Xeloda 2 Tablet (of 500 mg) Oral b.i.d., Xeloda 2 Tablet (of 150 mg) Oral b.i.d. Allergies: No Known Allergies. Review of Systems: Review of Systems is not available for this patient. Vital Signs: Performed on Dec 31, 2020 10:51 Height - 70.00 in Weight - 184.8 lbs (LOW) BSA - 2.02 sq.m BMI - 26.52 Temperature - 97 F (LOW) Pulse - 114 /min (HIGH) Respiration - 18 /min BP - 143/81 mm(hg) (HIGH) O2 Sat - 94 % (LOW) Pain - 6 Fatigue - 5 Performance Status: 0 - Fully active, able to carry on all predisease activities without restrictions. (ECOG) Physical Examination: ENMT - No mouth sores, no thrush, no jaundice, Respiratory - Lungs are clear to auscultation, Cardiovascular - Regular rate and rhythm of heart, Abdomen - Soft, bowel sounds present, Extremities - 1+ edema bilaterally. Lab/Imaging: Test performed on Sep 12, 2020 09:34 Sodium 134 mmol/L Potassium 4.2 mmol/L Chloride 97 mmol/L CO2 27 mmol/L Anion Gap 14.2 BUN 23 mg/dL Creatinine 0.9 mg/dL Cr Clearance (Est) 90.7300 mL/min Glucose 155 mg/dL Osmolality - Calculated 285 mOsm/kg Calcium 9.5 mg/dL Protein, Total 6.9 g/dL Albumin 4.1 g/dL Globulin 2.8 g/dL Bilirubin, Total 0.3 mg/dL ALT (SGPT) 23 U/L AST (SGOT) 18 U/L Alkaline Phosphatase 83 IU/L WBC 8.3 10 3/uL RBC 5.05 10 6/uL HGB 13.5 g/dL HCT 41.4 % MCV 82.0 fL MCH 26.7 pg MCHC 32.6 g/dL RDW 16.6 % Platelet Count 264 10 3/cmm MPV 9.4 fL Neutrophils 6.90 10 3/uL Lymphocytes 0.9 10 3/uL Monocytes 0.3 10 3/uL Eosinophils 0.1 10 3/uL Basophils 0.1 10 3/uL Neutrophil % 83.5 % Lymphocyte % 11.0 % Monocyte % 3.6 % Eosinophil % 0.6 % Basophils % 1.1 % NRBC % 0 % CEA 3.2 ng/mL Test performed on Sep 12, 2020 09:25 Ua Color Yellow Ua Appearance Clear Ua Glucose Norm Ua Bilirubin Neg Ua Ketones Negative Ua Specific [place] 1.015 Ua Blood Neg Ua pH 6 Ua Protein Neg Ua Urobilinogen 1 mg/dL Ua Nitrites Negative Ua Leukocyte Esterase Negative Impression: Invasive adenocarcinoma of upper rectum status post APR on 03/05/2017 final pathology showed tumor size 5.5 x 5.4 cm low-grade, tumor invades perirectal adipose p T3, lymphovascular invasion present, no perineural invasion seen 1 out of 18 positive lymph nodes N1a , extranodal extension present N1 stage IIIA No loss of nuclear expression of MMR protein Elevated PSA, on 03/12/2017 it was 35.20 with prostate enlargement, being followed by Dr. Martinez. s/p chemoradiation with Xeloda as chemosensitizer. till 11/03/17 discussed with patient regarding the role of adjuvant chemotherapy in stage IIIa rectal cancer, as literature has shown adjuvant chemotherapy improves disease-free survival. Patient has been reluctant to consider chemotherapy because of severe diarrhea during chemoradiation for rectal CA. He was assured that we will adjust/modify his adjuvant chemotherapy to make it tolerable. Patient, now agreed to get port placement and for adjuvant chemotherapy modified FOLFOX every 2 weeks ???12. All the side effect and possible benefits were discussed in detail again and patient expressed understanding. Mr Khan agreed. He was referred back to Dr. Merritt for Port-A-Cath placement and began his first cycle of FOLFOX on 02/09/2018 .Patient developed abdominal pain for which he underwent CT scan of abdomen on 03/19/2018 showed moderate constipation, and stable rectosigmoid anastomosis with no recurrent mass or adjacent adenopathy and bilateral lower lobe pulmonary nodules are stable since 02/03/2017. No evidence of metastatic disease elsewhere. Following day patient had large bowel movement and since then no more abdominal pain. Patient expressed intolerance to 5-FU infusion chemotherapy and also consider it inconvenient so requesting Xeloda pills instead of 5-FU infusion. His treatment plan was changed to XELOX beginning 03/23/2018. He has tolerated it well thus far. He completed 5 of the planned [address] PET scan done on 11/06/2018 showed prostate is enlarged, measuring 6 cm in diameter with diffusely increased FDG activity, most intense in the central prostate. Normal tracer activity at the rectal anastomosis There are 2 pulmonary nodules in the right lower lobe and one in the right upper lobe, the index nodule in the right lower lobe measuring 1.1 x 1.6 cm with SUV of 3.5. Most consistent with metastatic disease, likely from colonic primary. Multiple hypermetabolic mediastinal lymph nodes are present, consistent with metastatic disease, in the inferior right perihilar 1.9 cm, 5.2 SUV. Subcarinal, prevascular, right paratracheal, 1.9 cm, 6.8 SUV. Right hilar territories. Subcentimeter nodes are also noted in the superior right paratracheal region. Too small to characterize. Mr. Khan had established care with Dr. Esquivel in pulmonology. A bronchoscopy was performed and he was found to have sarcoidosis which was treated with some success however a follow-up CT of the chest done on August 29, 2019 showed interval progression of disease with bilateral pulmonary nodules with the largest nodule in the right lower lobe posteriorly. There was activity in the right suprahilar with narrowing of the right upper lobe bronchus and numerous additional new and progressive pulmonary nodules throughout both lungs. There was right hilar lymphadenopathy. He underwent another bronchoscopy and endobronchial ultrasound-guided transbronchial needle aspiration of station 11 R. This showed significant macrophages and histiocytes but no malignancy. However given his history there was concern about the possibility of malignancy therefore he underwent a second bronchoscopy on October 28, 2019. This did show a fungating mass at the orifice of the right upper lobe bronchus with complete occlusion of both airways. The right middle lobe and right lower lobe bronchi were examined up to a third subsegmental with no abnormality. A biopsy was obtained and did report positive for metastatic colorectal adenocarcinoma. Immunohistochemistry stains were positive for CK20 and CDX2. Mr. Khan was advised to pursue pallitave chemotherapy with FOLFOX Avastin. He began his first dose on November 16, 2019. Follow-up PET/CT from 02/18/2020 reports pulmonary nodules seen on the prior study were improved on the 02/18/2020 study. The index nodule in the right lower lobe that previously measured 2.7 x 1.8 cm with an SUV of 5.5 now measures 1.4 cm with an SUV of 3.2. The other right upper and left lung nodules are similarly improved. Increasing activity is present in the multiple FDG positive mediastinal nodes; as before, these are most consistent with sarcoidosis. These nodules are distributed in the right paratracheal, inferior right perihilar, subcarinal, prevascular and right hilar territories. The previously described right. Rectal node is unchanged in size but has an SUV of 4.2 up from 2.3 previously and consistent with recurrence. Rectal activity is prominent but is most likely physiologic. patient resumed his systemic chemotherapy on April 30, 2020 and received next dose on May 28, 2020 and then after that did not take further treatment due to 1 or other reasons subsequently underwent follow-up CT PET scan on May 30, 2020 which shows improvement in the right lower lobe pulmonary nodule. Improvement on the resolution of uptake in mediastinal lymph nodes. Stable FDG positive right perirectal node. Patient declined to continue current systemic therapy with Avastin/FOLFIRI but agreed to take oral Xeloda/Avastin so, at patient's request, his Avastin/FOLFIRI, was discontinued after last dose given on May 28, 2020 and he was switched to oral Xeloda 625 mg per metered squared twice daily day 1 through 14 along with Avastin 7.5 mg/kg on day 1 and then repeat cycle every 3 weeks on 08/22/2020. Follow-up CT PET scan done on November 24, 2020 shows tiny, bilateral pulmonary nodules seen previously are unchanged on current study. Right hilar lymph node is stable with SUV of 7,. No significant increase from 6 on previous study. The right perirectal node is slightly more prominent on the current study with SUV of 4.5 consistent with mild progression and a new T6 vertebral body compression fracture Plan: Discussed with patient regarding his labs white blood count 8.4 hemoglobin 14 hematocrit 42.3 platelets 304,000 CMP within normal limits except sodium 133 glucose 130 alk phos 180 and MRI scan of thoracic spine which shows acute to subacute compression fractures within T7 and T8 without enhancement. Most likely compression fracture without metastatic disease. Multilevel areas of facet joint arthritis. No high-grade central or foraminal stenosis. Clinically, patient is doing well with no new signs symptoms suggestive of disease progression, tolerating Avastin/oral Xeloda well, will proceed with next 3 weekly dose of Avastin today and he will also start taking his oral Xeloda twice a day for day 1 through 14 and then return to clinic in 3 weeks with CBC CMP As far as mid back pain is concerned, patient was referred to orthopedic for evaluation but he did not go there as scheduled but patient said he never got a call from orthopedics. So we will rerefer him. In the meantime we will also give him prescription for pain medication. Patient was advised in case there is a worsening of pain or pain start radiating to lower extremities and he need to go to hospital for immediate attention. As far as lower extremity edema is concerned probably due to excessive salt intake, patient was advised to minimize salt intake and also given prescription for Lasix 20 mg p.o. daily as needed. Return to clinic in 3 weeks with CBC CMP Signed By: Paula Singh M.D. <<Signature on File>>
[2020-12-31] MEDS: sodium chloride 0.9% 250 ML 75 ML IV (12:17)
== END 2021-01-03 23:59 | disposition home or self-care (01) ==
LOC: ONCMED 06:40
PROVIDERS: PCP Nurse Practitioner; Visit Provider Internal Medicine Hematology & Oncology
DX: Z51.11 Encounter for antineoplastic chemotherapy (principal); C20 Malignant neoplasm of rectum; C77.8 Secondary and unspecified malignant neoplasm of lymph nodes of multiple regions; C78.01 Secondary malignant neoplasm of right lung; R97.20 Elevated prostate specific antigen [PSA]; N40.0 Benign prostatic hyperplasia without lower urinary tract symptoms; Z79.899 Other long term (current) drug therapy; Z92.21 Personal history of antineoplastic chemotherapy
CPT/HCPCS: 80053; 85025; 96413; 99215; J7050; J9035

== ENCOUNTER → 2021-01-15 08:25 | Outpatient (BNVA) | payer MEDICARE, MEDICAID, SELFPAY | PROVIDERS: PCP Nurse Practitioner; Referring Provider Internal Medicine Hematology & Oncology; Visit Provider Physician Assistant | DX: Z20.822 Contact with and (suspected) exposure to COVID-19 (principal); S22.060A Wedge compression fracture of T7-T8 vertebra, initial encounter for closed fracture; S22.070A Wedge compression fracture of T9-T10 vertebra, initial encounter for closed fracture; X58.XXXA Exposure to other specified factors, initial encounter | CPT/HCPCS: 72070; 87635 ==

== ENCOUNTER 2021-01-18 07:24 | Day surgery (SDC) | payer MEDICARE, MEDICAID, SELFPAY ==
--- NOTE | 2021-01-17 09:53 | ECG_ITS ---
[facility] Test Date: 2021-01-17 Pat Name: Oswaldo Khan Department: Room: Gender: Male [employer]ocker: : 1945 Requested By: Judith Askew Order Number: [id number] Myers MD: Morena Rubio M.D. Measurements Intervals [place] Rate: 86 P: 76 AR: 151 QRS: 58 QRSD: 86 T: 64 QT: 327 QTc: 392 Interpretive Statements SINUS RHYTHM Compared to ECG 02/16/2019 08:06:45 No significant changes Electronically Signed On 01-18-2021 5:50:21 CDT by Morena Rubio M.D. [email or web address]) [id number]
[2021-01-17 10:17] VITALS: BMI 25.1
[2021-01-17 11:01] LABS: Basophils % 0.4 %; Eosinophils % 0.4 %; Hematocrit 46.8 % (42.0-52.0); Hemoglobin 15.6 g/dL (11.7-16.6); Lymphocytes # 1.1 10^3/uL (0.8-4.8); Lymphocytes % 11.3 %; Mean Corpuscular HGB Conc 33.3 g/dL (30.0-36.0); Mean Corpuscular Hemoglobin 28.8 pg (28.0-34.0); Mean Corpuscular Volume 86.5 fl (80-94); Mean Platelet Volume 9.6 fL (7.4-10.4); Monocytes # 0.3 10^3/uL (0.2-0.9); Monocytes % 3.1 %; Neutrophils # 7.85 10^3/uL (1.8-7.7); Neutrophils % 84.3 %; Nucleated Red Blood Cells % 0 %; Platelet Count 289 10^3/cmm (130-400); Red Blood Count 5.41 10^6/uL (4.1-5.3); Red Cell Distribution Width 16.3 % (12.1-15.1); White Blood Count 9.3 10^3/uL (4.0-10.0)
[2021-01-17 11:23] LABS: Anion Gap 13.3 (5-19); Blood Urea Nitrogen 13 mg/dL (8-23); Carbon Dioxide 28 mmol/L (22-29); Chloride 99 mmol/L (98-107); Creatinine Clr Calc Pharmacy 87.8812; Glucose 112 mg/dL (65-115); Osmolality Calculated 283 mOsm/kg (285-295); Potassium 4.3 mmol/L (3.5-5.1); Sodium 136 mmol/L (136-145)
[2021-01-18] VITALS (7 sets, daily range): BP systolic 125–154; BP diastolic 83–99; PULSE 95–121; RESP 15–18; TEMP 36.2–36.6; O2SAT 92–96
--- NOTE | 2021-01-18 | SCC_ITS ---
Procedure Done: 1. T7 kyphoplasty 2. T8 kyphoplasty 3. T9 kyphoplasty 133.5 seconds of fluoroscopic guidance, for a cumulative dose of 53.4 mGy and 12.16 mGy , was provided to Dr. Miller by the radiology department. C-arm images of the thoracic spine were saved for the patient's permanent record. [facility]
--- NOTE | 2021-01-18 07:26 | SC_ITS ---
WS: [id number] C-arm FL for Kyphoplasty REASON FOR EXAM: Kyphoplasty FINDINGS: AP and lateral images of the midthoracic spine demonstrate barium impregnated methylmethacrylate in t he central portions of the T7, T8, and T9 vertebral bodies. No extraosseous extravasation. SC/C-arm FL for Kyphoplasty IMPRESSION: Multilevel vertebroplasty as above.
[2021-01-18] MEDS: sodium chloride 0.9% 1,000 ML 30 ML IV (08:15)
--- NOTE | 2021-01-18 09:18 | P.ANESASSM_ITS ---
Pre-Anesthetic Assessment Pre-Anesthetic Assessment: Height/Weight: Height 1.78 m Weight 79.379 kg Temp Pulse Resp BP Pulse Ox 97.1 F L 95 18 154/99 95 01/18/21 07:49 01/18/21 07:49 01/18/21 07:49 01/18/21 07:49 01/18/21 07:49 Preop Diagnosis: Thoracic compression fracture T7,8,9 Proposed Procedure: Operation Date: 01/18/21 08:55 Proposed Procedures p Kyphoplasty T 7,8,9 93068(Not Applicable) - Jesus Manuel Miller DO Familial anesthetic complications: None Was Beta Charis taken within 24 hours: N/A Was Clonidine taken within 24 hours: N/A Last intake: Intake Last Liquid Date 01/18/21 Last Liquid Time 00:30 Last Solid Date 01/17/21 Last Solid Time 22:30 Social: Social History: No alcohol and No tobacco Exam: Pre-Anes Outpt Exam: alert, oriented x 3, clear to auscultation bilaterally and regular rate & rhythm Airway: Cervical ROM: WNL MP: 3 Dentition: Other (poor dentition) Pulmonary: Pulmonary: COPD (sarcoidosis) Comments: sarcoidosis GI: GI: GERD Comments: hx rectal cancer, lung cancer (mets) Anesthetic Plan: ASA status: 4 Anesthesia: General Risk of > 500 ml blood loss (7ml/kg in children): No Meds/Allergies Current Medications: Current Medications Generic Name Dose Route Start Last Admin Trade Name Freq PRN Reason Stop Dose Admin Sodium Chloride 1,000 mls @ 30 ml s/hr 01/18/21 08:15 01/18/21 08:15 Sodium Chloride 0.9% IV 01/19/21 08:14 30 mls/hr .Q24H MARTÍNEZ Administration PFSH Anesthesia PFSH: Medical History BPH loc w urin obs/LUTS Elevated PSA Essential (primary) hypertension H/O colon cancer, stage III Lung cancer Myalgia Nocturia Port-A-Cath in place Prostate CA Urinary retention Urinary urgency Surgical History History of liver biopsy S/P appendectomy S/P cholecystectomy S/P colon resection S/P hernia repair Family History Mother , 62 CAD (coronary artery disease) Diabetes Father , 74 Cancer Colon Social History Smoking and tobacco status: never smoked Quit status (tobacco): has tried quititng Second hand smoke exposure: Yes Smoking risk assessment/counseling performed?: No Alcohol intake: never Desire information about alcohol rehabilitation?: No Counseling given: No Desire information about substance/drug rehabilitation?: No Counseling given: No Adopted: No Caregiver/support person: No Lives independently: Yes Household members: none Housing: House Marital status: Current occupational status: retired History of recent travel: No Current gender identity: Male Data Anesthesia CBC & Chem 7: 01/17/21 10:30 01/17/21 10:30 Other Labs: Laboratory Results - last 48 hr 01/17/21 01/17/21 10:30 10:30 WBC 9.3 RBC 5.41 H Hgb 15.6 Hct 46.8 MCV 86.5 MCH 28.8 MCHC 33.3 RDW 16.3 H Plt Count 289 MPV 9.6 Neut % (Auto) 84.3 Lymph % (Auto) 11.3 [place] % (Auto) 3.1 Eos % (Auto) 0.4 Baso % (Auto) 0.4 Neut # (Auto) 7.85 H Lymph # (Auto) 1.1 [place] # (Auto) 0.3 Eos # (Auto) 0.0 Baso # (Auto) 0.0 Nucleated RBC % (auto) 0 Nucleated RBCs # 0.0 Sodium 136 Potassium 4.3 Chloride 99 Carbon Dioxide 28 Anion Gap 13.3 BUN 13 Creatinine 0.6 L GFR Calculation Not Reportable Glucose 112 Calculated Osmolality 283 L Calcium 10.0 Cardiac Studies: No Data to Display
--- NOTE | 2021-01-18 09:40 | W.PM.OPSUD ---
Surgery/Procedure H&P Update DATE OF PROCEDURE: January 18, 2021 DATE H&P PERFORMED: 01/15/21 H&P UPDATE INFORMATION: I have reviewed H&P completed within last 30 days, I have examined patient prior to procedure and No changes to prior documentation PREOP DIAGNOSIS: Thoracic compression fracture T7,8,9 PLANNED PROCEDURE: Operation Date: 01/18/21 08:55 Proposed Procedures p Kyphoplasty T 7,8,9 57304(Not Applicable) - Jesus Manuel Miller DO
--- NOTE | 2021-01-18 10:40 | PM.OP ---
Operative Report Date of procedure: January 18, 2021 Pre-op Diagnosis: Thoracic compression fracture T7,8,9 Post-op diagnosis: same Procedure Done: 1. T7 kyphoplasty 2. T8 kyphoplasty 3. T9 kyphoplasty Surgeon: Jesus Manuel Miller Anesthesia: General Estimated blood loss (mL): 5 Condition: stable Disposition: PACU Procedure: 1. T7 kyphoplasty 2. T8 kyphoplasty 3. T9 kyphoplasty Patient was brought to the operative suite placed in the prone position. All areas impingement were well-padded. Patient was prepped and draped in normal sterile fashion. C-arm was brought in AP lateral fluoroscopy in order to facilitate finding the T7-T8 and T9 pedicles and spinous process. Once these are identified then incisions made at the T9 level. The all was inserted. Followed by a biopsy tube. Biopsy was taken at T9. Then the drill was brought and then the balloon was brought in once the balloon was inflated it was deflated. And then she is brought to the T8 level. The awl was brought followed by the drill followed by the balloon and then the balloon was deflated. This process was repeated at T7. The awl was inserted followed by the drill followed by the balloon. The balloon was deflated. Then cement was placed at the T7-T8 and T9 levels using AP and lateral fluoroscopy. In order to ensure that the cement did not backtrack into the canal. Got a good fill at all 3 levels. Wounds were irrigated and closed with nylon stitch sterile dressings were applied and patient was transferred to the PACU in stable condition.
--- NOTE | 2021-01-18 14:31 | ANE.PACU2 ---
Inpatient post-anesthesia follow up: Airway intact: Yes Vital signs: Temperature 98 F Pulse Rate 97 Respiratory Rate 16 Blood Pressure 147/95 Pulse Oximetry 92 Oxygen Delivery Me thod Room Air Oxygen Flow Rate 8 Fraction of Inspir ed Oxygen Hydration adequate: Yes Nausea and vomiting: No Pain level: 1 Mental status: Baseline
== END 2021-01-18 12:00 | disposition home or self-care (01) ==
PROVIDERS: Anesthesiology; PCP Nurse Practitioner; Visit Provider Orthopaedic Surgery
PROC: (CPT 22513; principal; 2021-01-18 08:35)
DX: S22.060A Wedge compression fracture of T7-T8 vertebra, initial encounter for closed fracture (principal); S22.070A Wedge compression fracture of T9-T10 vertebra, initial encounter for closed fracture; X58.XXXA Exposure to other specified factors, initial encounter; J44.9 Chronic obstructive pulmonary disease, unspecified; N40.1 Benign prostatic hyperplasia with lower urinary tract symptoms; N13.8 Other obstructive and reflux uropathy; Z85.46 Personal history of malignant neoplasm of prostate; Z85.038 Personal history of other malignant neoplasm of large intestine; Z85.048 Personal history of other malignant neoplasm of rectum, rectosigmoid junction, and anus
CPT/HCPCS: 22513; 22515 ×2; 76000; 80048; 85025; 88304; 88311; 93005; J0690; J1100; J2405; J2704; J3010; J3490; J7030

== ENCOUNTER 2021-01-25 20:45 | Inpatient (IN) | payer MEDICARE, MEDICAID, SELFPAY ==
[2021-01-25 20:46] VITALS: BP 135/95; PULSE 125; RESP 18; TEMP 36.2; O2SAT 95; BMI 28.7
[2021-01-25 20:57] VITALS: BP 135/95; PULSE 125; RESP 24; O2SAT 92
--- NOTE | 2021-01-25 21:23 | XRR_ITS ---
PROCEDURE INFORMATION: Exam: XR Chest Exam date and time: 01/25/2021 9:23 PM Age: 75 years old Clinical indication: Shortness of breath; Additional info: SOB TECHNIQUE: Imaging protocol: XR of the chest. Views: 1 view. COMPARISON: CT angio chest [id number] 07/05/2020 9:41 AM FINDINGS: Tubes, catheters and devices: Left chest tunnel Port-A-Cath terminates in the left innominate vein. Lungs: Moderate severity emphysema. Reticular changes of pulmonary interstitium. Scattered bilateral pulmonary nodules. Negative for focal airspace consolidation. The known right hilar mass is poorly visible by radiography. Calcified granuloma in the left hilum. Pleural spaces: Unremarkable. No pleural effusion. No pneumothorax. Heart/Mediastinum: Unremarkable. No cardiomegaly. Bones/joints: Unremarkable. XR/XR chest 1V portable [id number] IMPRESSION: No focal acute pulmonary disease. Radiation Dose CTDIVOL = (mGy): DLP = (mGy-cm)
[2021-01-25 21:33] LABS: Basophils # 0.1 10^3/uL (0.0-0.1); Basophils % 0.5 %; Eosinophils % 0.3 %; Hematocrit 46.3 % (42.0-52.0); Hemoglobin 15.2 g/dL (11.7-16.6); Lymphocytes % 21.4 %; Mean Corpuscular HGB Conc 32.8 g/dL (30.0-36.0); Mean Corpuscular Hemoglobin 28.9 pg (28.0-34.0); Mean Platelet Volume 9.8 fL (7.4-10.4); Monocytes # 0.8 10^3/uL (0.2-0.9); Neutrophils # 6.34 10^3/uL (1.8-7.7); Neutrophils % 68.4 %; Nucleated Red Blood Cells % 0 %; Platelet Count 270 10^3/cmm (130-400); Red Blood Count 5.26 10^6/uL (4.1-5.3); White Blood Count 9.3 10^3/uL (4.0-10.0)
[2021-01-25 21:41] LABS: D Dimer 1.79 ug/mIFEU (0-0.59)
[2021-01-25] MEDS: morphine 4 mg/mL SDV 1 mL IVP (21:42)
[2021-01-25] MEDS: ondansetron 2 mg/ML SDV 2 mL 4 MG IVP (21:42)
[2021-01-25] MEDS: sodium chloride 0.9% 1,000 ML 999 ML IV (21:42)
[2021-01-25 21:44] LABS: Lactate (Lactic Acid level) 1.4 mmol/L (0.5-2.2)
--- NOTE | 2021-01-25 21:44 | CTR_ITS ---
PROCEDURE INFORMATION: Exam: CTA Chest With Contrast Exam date and time: 01/25/2021 9:44 PM Age: 75 years old Clinical indication: Shortness of breath; Sternal or substernal pain; Prior surgery; Surgery type: Port; Patient HX: HX of lung, prostate, and colon cancer; Additional info: Chest pain TECHNIQUE: Imaging protocol: Computed tomographic angiography of the chest with contrast. 3D rendering (Not supervised by radiologist): MIP and/or 3D reconstructed images were created by the technologist. Radiation optimization: All CT scans at this facility use at least one of these dose optimization techniques: automated exposure control; mA and/or kV adjustment per patient size (includes targeted exams where dose is matched to clinical indication); or iterative reconstruction. Contrast material: OMNI 350; Contrast volume: 64 ml; Contrast route: INTRAVENOUS (IV); COMPARISON: CT angio chest [id number] 07/05/2020 9:41 AM RADIATION DOSE METRICS: Total DLP (mGy-cm): 613.07 FINDINGS: Tubes, catheters and devices: There is a left chest tunnel Port-A-Cath with distal tip terminating in the left innominate vein. Pulmonary arteries: Normal. No pulmonary emboli. Aorta: Unremarkable. No aortic aneurysm. No aortic dissection. Lungs: Right upper lobe endobronchial obstruction is noted. There are multiple bilateral pulmonary nodules present which have either grown or are new since the prior imaging most likely representing satellite malignant lesions. Background moderate to severe centrilobular emphysema changes of the lungs are noted. No focal airspace consolidation. Pleural spaces: Unremarkable. No pneumothorax. No pleural effusion. Heart: Unremarkable. No cardiomegaly. No pericardial effusion. Lymph nodes: Unremarkable. No enlarged lymph nodes. Gallbladder and bile ducts: Cholecystectomy. Bones/joints: Multilevel vertebroplasty changes in the midthoracic spine for treatment of thoracic spine compression fractures new from prior imaging. Thoracic spinal alignment is unremarkable. Bones are diffusely demineralized. Soft tissues: Unremarkable. Other findings: Soft tissue mass in the right hilum with rounded lobulated borders measures 3.8 cm x 2.8 cm on axial image 176; about 4.2 cm x 2.[address]/CT angio chest PE protcl [id number] IMPRESSION: 1. Negative for pulmonary embolism. 2. Soft tissue pulmonary mass in the right hilum is mildly larger than comparison imaging. 3. Numerous bilateral satellite pulmonary nodules are larger or new from comparison imaging consistent with metastatic disease. Radiation Dose CTDIVOL = (mGy): DLP = 613.07 (mGy-cm)
[2021-01-25 21:45] VITALS: BP 103/78; PULSE 117; RESP 20; O2SAT 97
[2021-01-25 21:54] LABS: Alanine Aminotransferase 13 U/L (0-41); Albumin Level 3.7 g/dL (3.5-5.2); Alkaline Phosphatase 142 IU/L (40-130); Anion Gap 17.9 (5-19); Aspartate Amino Transferase 13 U/L (0-40); Blood Urea Nitrogen 21 mg/dL (8-23); C Reactive Protein 13.5 mg/L (0.0-4.9); Calcium 9.4 mg/dL (8.5-10.5); Carbon Dioxide 22 mmol/L (22-29); Chloride 101 mmol/L (98-107); Creatine Phosphokinase 34 U/L (39-308); Globulin 2.7 g/dL (1.3-4.6); Glucose 98 mg/dL (65-115); NT Pro B Type Natriuretic Pept 135 pg/mL (0-125); Osmolality Calculated 287 mOsm/kg (285-295); Potassium 3.9 mmol/L (3.5-5.1); Sodium 137 mmol/L (136-145); Total Bilirubin 0.7 mg/dL (0.15-1.2); Total Protein 6.4 g/dL (6.6-8.7)
[2021-01-25 21:59] LABS: ABG PH Result 7.42 (7.35-7.45); Arterial Blood Gas Hematocrit 45.5 % (42-52); Base Excess ABG -0.6 mmol/L (-2.0-2.0); Blood Gas Allen Test Pos; Blood Gas Sample Type Arterial; HCO3 ABG 23.7 mmol/L (22-26); PO2 ABG 85.9 mmHg (80.0-100.0)
[2021-01-25 22:00] LABS: Blood Gas Sample Site Radial, right; Oxygen Device NC
[2021-01-25 22:18] VITALS: PULSE 115; RESP 18; O2SAT 96
[2021-01-25] MEDS: ipratropium-albuterol 3 mL Neb INHALATION (22:18)
[2021-01-25 22:19] VITALS: BP 103/78; PULSE 116; RESP 18; O2SAT 96
[2021-01-25] MEDS: iohexol 350 mg/mL 100 mL Btl IV (22:19)
--- NOTE | 2021-01-25 22:19 | W.ED.BACK ---
HPI - Back Pain/Injury General: Chief Complaint: Back Pain/Injury Stated Complaint: RESPIRATORY DISTRESS/ ABDOMINAL PAIN Time Seen by Provider: 01/25/21 21:01 History of Present Illness: HPI Narrative: 75-year-old male who is 1 week status post kyphoplasty of the lower thoracic spine at multiple levels. He presents with shortness of breath, increased pain and vomiting. He says he has been vomiting for several hours, essentially since 3 AM. He believes the pain medication was making him sick. Because he has not had any pain medication, he has increased pain. He also has shortness of breath which has been significant. He has a history of COPD, but is not on oxygen at home. He required oxygen on the ambulance ride here he denies any fever. MD elicited complaint: back pain Pertinent past history: back surgery and other Onset (ago): unknown Associated symptoms: Reports fatigue, nausea and vomiting; Deny abdominal pain, chills, dysuria or fever(s) Review of Systems Const: Reports: fatigue; Denies: fever(s) or chills Card: Denies: chest pain or palpitations Resp: Reports: dyspnea, non-productive cough and wheezing; Denies: productive cough GI: Reports: nausea and vomiting; Denies: abdominal pain : Denies: dysuria PFSH ED PFSH: Medical History BPH loc w urin obs/LUTS Elevated PSA Essential (primary) hypertension H/O colon cancer, stage III Lung cancer Myalgia Nocturia Port-A-Cath in place Prostate CA Urinary retention Urinary urgency Surgical History History of liver biopsy S/P appendectomy S/P cholecystectomy S/P colon resection S/P hernia repair Family History Mother , 62 CAD (coronary artery disease) Diabetes Father , 74 Cancer Colon Social History Smoking and tobacco status: never smoked Quit status (tobacco): has tried quititng Second hand smoke exposure: Yes Smoking risk assessment/counseling performed?: No Alcohol intake: never Desire information about alcohol rehabilitation?: No Counseling given: No Desire information about substance/drug rehabilitation?: No Counseling given: No Adopted: No Caregiver/support person: No Lives independently: Yes Household members: none Housing: House Marital status: Current occupational status: retired History of recent travel: No Current gender identity: Male Physical Exam Const: COMMON NORMALS: patient oriented x3 and alert GENERAL APPEARANCE: ill appearing (Mildly) and frail appearing Eye: COMMON NORMALS: Equal, round and reactive pupils present and EOMs intact bilaterally PUPIL: Yes Equal, round and reactive pupils present Chest: COMMONS NORMALS: normal inspection of the chest and normal palpation of entire chest wall Resp: EFFORT & INSPECTION: Yes tachypneic, Yes respiratory distress (Mild) and Yes labored AUSCULTATION: rales and wheezes Cardio: COMMON NORMALS: regular rhythm RATE: tachycardic RHYTHM: regular rhythm GI: COMMON NORMALS: Normal to inspection, nondistended, normoactive bowel sounds present and Soft to palpation PALPATION: Yes Soft to palpation Neuro: COMMON NORMALS: patient oriented x3 SENSORIUM/ORIENTATION: Yes alert Course Consultations: Consultation #1: coni Time: 23:48 Vital Signs: Vital signs: Vital Signs Temperature 97.1 F L 01/26/21 01:05 Pulse Rate 110 H 01/26/21 01:05 Respiratory Rate 20 H 01/26/21 01:05 Blood Pressure 112/82 01/26/21 01:05 Pulse Oximetry 93 01/26/21 01:05 MDM - Back Pain/Injury MDM Narrative: Medical decision making narrative: 75-year-old gentleman with shortness of breath at home. He is 1 week status post kyphoplasty. His D-dimer is elevated. His heart rates elevated in the 120s to 130s. His oxygen saturation has been low, but improved on 2 to 3 L of oxygen. He is wheezing, and has rales on exam. His chest x-ray however is negative. He does have a pulmonary mass in the right hilar area that is larger than on comparison imaging. His PE study is negative for pulmonary embolism. He is also vomited multiple times in the last 24 hours, and will required fluid resuscitation. As he could have a small bowel obstruction, he will go back to CT for CT of the abdomen pelvis. he will be admitted. Lab Data: Labs: Lab Results 01/25/21 01/25/21 01/25/21 20:50 20:50 20:50 WBC 9.3 10^3/uL 10^3/ uL (4.0-10.0) RBC 5.26 10^6/uL 10^6 /uL (4.1-5.3) Hgb 15.2 g/dL g/dL (11.7-16.6) Hct 46.3 % % (42.0-52.0) MCV 88.0 fl fl (80-94) MCH 28.9 pg pg (28.0-34.0) MCHC 32.8 g/dL g/dL (30.0-36.0) RDW 16.0 % H % (12.1-15.1) Plt Count 270 10^3/cmm 10^3 /cmm (130-400) MPV 9.8 fL fL (7.4-10.4) Neut % (Auto) 68.4 % % Lymph % (Auto) 21.4 % % [place] % (Auto) 9.0 % % Eos % (Auto) 0.3 % % Baso % (Auto) 0.5 % % Neut # (Auto) 6.34 10^3/uL 10^3 /uL (1.8-7.7) Lymph # (Auto) 2.0 10^3/uL 10^3/ uL (0.8-4.8) [place] # (Auto) 0.8 10^3/uL 10^3/ uL (0.2-0.9) Eos # (Auto) 0.0 10^3/uL 10^3/ uL (0.0-0.8) Baso # (Auto) 0.1 10^3/uL 10^3/ uL (0.0-0.1) Nucleated RBC % (a uto) 0 % % Nucleated RBCs # 0.0 /100WBC /100W BC D-Dimer 1.79 ug/mIFEU H u g/mIFEU (0-0.59) Specimen Type Sample Site ABG pH ABG pCO2 ABG pO2 ABG HCO3 ABG Base Excess Solitario Test Hematocrit O2 Delivery Device O2 Liters/Min Road Commissioner ID Sodium 137 mmol/L mmol/L (136-145) Potassium 3.9 mmol/L mmol/L (3.5-5.1) Chloride 101 mmol/L mmol/L (98-107) Carbon Dioxide 22 mmol/L mmol/L (22-29) Anion Gap 17.9 (5-19) BUN 21 mg/dL mg/dL (8-23) Creatinine 0.6 mg/dL L mg/dL (0.7-1.2) GFR Calculation Not Reportable Glucose 98 mg/dL mg/dL (65-115) Calculated Osmolal ity 287 mOsm/kg mOsm/ kg (285-295) Lactate Calcium 9.4 mg/dL mg/dL (8.5-10.5) Total Bilirubin 0.7 mg/dL mg/dL (0.15-1.2) AST 13 U/L U/L (0-40) ALT 13 U/L U/L (0-41) Alkaline Phosphata se 142 IU/L H IU/L (40-130) Creatine Kinase 34 U/L L U/L (39-308) C-Reactive Protein 13.5 mg/L H mg/L (0.0-4.9) NT-Pro-B Natriuret Pep 135 pg/mL H pg/mL (0-125) Total Protein 6.4 g/dL L g/dL (6.6-8.7) Albumin 3.7 g/dL g/dL (3.5-5.2) Globulin 2.7 g/dL g/dL (1.3-4.6) Procalcitonin 0.10 ng/mL ng/mL (0-0.5) 01/25/21 01/25/21 20:50 21:48 WBC RBC Hgb Hct MCV MCH MCHC RDW Plt Count MPV Neut % (Auto) Lymph % (Auto) [place] % (Auto) Eos % (Auto) Baso % (Auto) Neut # (Auto) Lymph # (Auto) [place] # (Auto) Eos # (Auto) Baso # (Auto) Nucleated RBC % (a uto) Nucleated RBCs # D-Dimer Specimen Type Arterial Sample Site Radial, right ABG pH 7.42 (7.35-7.45) ABG pCO2 37.0 mmHg mmHg (35-45) ABG pO2 85.9 mmHg mmHg (80.0-100.0) ABG HCO3 23.7 mmol/L mmol/ L (22-26) ABG Base Excess -0.6 mmol/L mmol/ L (-2.0-2.0) Solitario Test Pos Hematocrit 45.5 % % (42-52) O2 Delivery Device Nc O2 Liters/Min 2.0 % % Road Commissioner ID [email or web address] Sodium Potassium Chloride Carbon Dioxide Anion Gap BUN Creatinine GFR Calculation Glucose Calculated Osmolal ity Lactate 1.4 mmol/L mmol/L (0.5-2.2) Calcium Total Bilirubin AST ALT Alkaline Phosphata se Creatine Kinase C-Reactive Protein NT-Pro-B Natriuret Pep Total Protein Albumin Globulin Procalcitonin Discharge Plan Discharge Patient Disposition: Admitted As Inpatient Admit Provider: Leandra Hercules Clinical Impression: Acute exacerbation of chronic obstructive pulmonary disease Respiratory failure Qualifiers: Chronicity: acute Respiratory failure complication: hypoxia Qualified Code(s): J96.01 - Acute respiratory failure with hypoxia Vomiting Qualifiers: Vomiting type: bilious vomiting Nausea presence: with nausea Qualified Code(s): R11.14 - Bilious vomiting Condition: Stable Coding Level of Care Code ED Field Services Director for Chg Fwd Exam Detailed
[2021-01-25 23:00] VITALS: BP 138/87; PULSE 117; RESP 20; O2SAT 97
--- NOTE | 2021-01-25 23:42 | CTR_ITS ---
PROCEDURE INFORMATION: Exam: CT Abdomen And Pelvis Without Contrast Exam date and time: 01/25/2021 11:42 PM Age: 75 years old Clinical indication: Abdominal pain; Generalized; Prior surgery; Surgery type: Appy, gb, colon, hernia, port. Back on 01/21; Patient HX: HX of lung, prostate, and colon cancer; Additional info: Vomiting, abd pain TECHNIQUE: Imaging protocol: Computed tomography of the abdomen and pelvis without contrast. Radiation optimization: All CT scans at this facility use at least one of these dose optimization techniques: automated exposure control; mA and/or kV adjustment per patient size (includes targeted exams where dose is matched to clinical indication); or iterative reconstruction. COMPARISON: 1. CT angio chest PE protcl [id number] 01/25/2021 9:58:[address] abdomen pelvis w con* [id number] 09/23/2018 1:12 PM RADIATION DOSE METRICS: Total DLP (mGy-cm): 1459.98 FINDINGS: Lungs: Nodules in the lung bases still present; correlate with the recent chest CTA report. Diaphragm: Interval slight enlargement of the small hiatal hernia. Liver: No apparent noncalcified liver mass since 2019. Gallbladder and bile ducts: Cholecystectomy again evident. Still no biliary ductal dilatation. Pancreas: Still no suggestion of pancreatic disease. Spleen: Still no splenomegaly. Adrenal glands: Still no adrenal mass. Kidneys and ureters: Excretion of contrast by the kidneys related to the chest CTA earlier on today's date. Still no hydronephrosis. Approximately 7 mm mass in the lateral margin of the left middle to lower kidney, too small to characterize. Probable similar-sized focus of low density elsewhere within the left renal cortex. Possible interval decrease in size of a subcentimeter focus of decreased density in the right lower renal cortex. Stomach and bowel: Continued rectal anastomosis. Still no obstruction. Nondistended stomach. Appendix: No evidence of appendicitis. Intraperitoneal space: Still no free air. Vasculature: Continued atherosclerosis. Still no aortic aneurysm. Continued presence of a 2.4 x 2.6 cm focus of ectasia in the distal abdominal aorta having no fluid along it. Lymph nodes: No interval enlarged lymph nodes. Urinary bladder: Unremarkable as visualized. Reproductive: Continued prominent prostatic enlargement. Bones/joints: S1 transitional vertebra again evident. Interval slight worsening of the mild T11 compression fracture with minimal cortical buckling and step-off along part of its anterolateral margin and an apparent fracture line in this area on images 2 and 3 of series 2. Continued bridging spur along the anterior left SI joint. Soft tissues: Small calcifications in the subcutaneous fat of the right buttock again evident. Continued presence of a few small or tiny supraumbilical hernias containing fat. Developing right inguinal hernia still present. CT/CT abdomen pelvis wo con [id number] IMPRESSION: 1. Appearance of the acute mild T11 compression fracture since 2019. 2. No acute intra-abdominal findings. Stable focal ectasia of the distal abdominal aorta. 3. Interval slight enlargement of the small hiatal hernia. Continued prominent prostatic enlargement. Rectal anastomosis still present. Other findings detailed above. COMMENTS: Consistent with the [employer]'s Incidental Findings Committee white paper (J Am Delio Radiol 2018): Any incidental renal lesion less than 1 cm or classified as too small to characterize, or any incidental cystic renal lesion characterized as simple-appearing, is likely benign. No follow-up imaging is recommended for these lesions per consensus recommendations based on imaging criteria. Radiation Dose CTDIVOL = (mGy): DLP = 1459.98 (mGy-cm)
[2021-01-26] VITALS (16 sets, daily range): BP systolic 112–166; BP diastolic 64–93; PULSE 57–116; RESP 14–22; TEMP 36.2–37.1; O2SAT 92–95
--- NOTE | 2021-01-26 03:16 | PM.HP ---
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 He had been constipated since the surgery and has not had a bowel movement except today when he had 7-8 episodes of loose stools after taking laxatives. He has a history of COPD but at baseline does not use any oxygen. Today he is needing supplement O2 at 2 L/min. It is extremely hard to get any other history from the patient at this time as he is incredibly hard of hearing. Unable to reach family due to late hour. CT of the chest abdomen and pelvis were negative for PE, any acute intra-abdominal events. No ileus identified. Review of Systems General: Reports: Other (Patient extremely hard of hearing, unable to hear most questions to complet) Medications/Allergies Home Medications Medication Instructions Recorded Confirmed Last Taken Type lisinopril 40 mg tablet 40 mg PO DAILY #30 tab 10/17/20 01/18/21 01/25/21 09:00 Rx tiotropium 2.5 mcg-olodaterol 2.5 See Rx Instructions .ROUTE 11/26/20 01/18/21 01/25/21 Rx mcg/actuation mist for inhalation .COMPLEX #4 g hydrocodone 5 mg-acetaminophen 325 1 - 2 tab PO .Q4-6H PRN 7 Days #40 01/24/21 01/24/21 21:00 Rx mg tablet tab omeprazole 20 mg PO DAILY 01/25/21 01/25/21 01/25/21 09:00 History Allergies Allergy/AdvReac Type Severity Reaction Status Date / Time No Known Allergies Allergy Verified 01/25/21 21:00 PFSH Acute PFSH: Medical History BPH loc w urin obs/LUTS Elevated PSA Essential (primary) hypertension H/O colon cancer, stage III Lung cancer Myalgia Nocturia Port-A-Cath in place Prostate CA Urinary retention Urinary urgency Surgical History History of liver biopsy S/P appendectomy S/P cholecystectomy S/P colon resection S/P hernia repair Family History Mother , 62 CAD (coronary artery disease) Diabetes Father , 74 Cancer Colon Social History Smoking and tobacco status: never smoked Quit status (tobacco): has tried quititng Second hand smoke exposure: Yes Smoking risk assessment/counseling performed?: No Alcohol intake: never Desire information about alcohol rehabilitation?: No Counseling given: No Desire information about substance/drug rehabilitation?: No Counseling given: No Adopted: No Caregiver/support person: No Lives independently: Yes Household members: none Housing: House Marital status: Current occupational status: retired History of recent travel: No Current gender identity: Male Vitals/I&O/Wt Last Vital Signs Temp 98.4 F 01/26/21 01:27 Pulse 64 01/26/21 01:27 Resp 18 01/26/21 01:27 BP 123/64 01/26/21 01:27 Pulse Ox 94 01/26/21 01:27 01/25/21 01/25/21 01/26/21 14:59 22:59 06:59 Intake Total 1000 / 1000 Balance 1000 / 1000 Weight last 48 hrs Weight 90.718 kg Physical Exam Narrative: EXAM NARRATIVE: General: No acute distress, AO x3 HEENT: PERRLA, pupils bilaterally equal and reactive, pallors not present Chest: Normal vesicular breath sounds, no added sounds, equal good air entry bilaterally CVS: S1-S2 regular, no murmurs, no tachycardia, no gallops, no rubs Abdomen: Soft, nontender, no organomegaly, bowel sounds present Neuro: No focal deficits, no facial deformity, AO x3, power 5/5 in all limbs Data : 01/25/21 20:50 01/25/21 20:50 Micro: Microbiology 01/25/21 22:26 Blood Culture - Preliminary Blood SPECIMEN COLLECTED 01/25/21 22:20 Blood Culture - Preliminary Blood SPECIMEN COLLECTED Attestation for Other Data: I personally reviewed and interpreted the following: Other data: Laboratory Results WBC 9.3 10^3/uL (4.0-10.0) 01/25/21 20:50 RBC 5.26 10^6/uL (4.1-5.3) 01/25/21 20:50 Hgb 15.2 g/dL (11.7-16.6) 01/25/21 20:50 Hct 46.3 % (42.0-52.0) 01/25/21 20:50 MCV 88.0 fl (80-94) 01/25/21 20:50 MCH 28.9 pg (28.0-34.0) 01/25/21 20:50 MCHC 32.8 g/dL (30.0-36.0) 01/25/21 20:50 RDW 16.0 % (12.1-15.1) H 01/25/21 20:50 Plt Count 270 10^3/cmm (130-400) 01/25/21 20:50 MPV 9.8 fL (7.4-10.4) 01/25/21 20:50 Neut % (Auto) 68.4 % 01/25/21 20:50 Lymph % (Auto) 21.4 % 01/25/21 20:50 [place] % (Auto) 9.0 % 01/25/21 20:50 Eos % (Auto) 0.3 % 01/25/21 20:50 Baso % (Auto) 0.5 % 01/25/21 20:50 Neut # (Auto) 6.34 10^3/uL (1.8-7.7) 01/25/21 20:50 Lymph # (Auto) 2.0 10^3/uL (0.8-4.8) 01/25/21 20:50 [place] # (Auto) 0.8 10^3/uL (0.2-0.9) 01/25/21 20:50 Eos # (Auto) 0.0 10^3/uL (0.0-0.8) 01/25/21 20:50 Baso # (Auto) 0.1 10^3/uL (0.0-0.1) 01/25/21 20:50 Nucleated RBC % (auto) 0 % 01/25/21 20:50 Nucleated RBCs # 0.0 /100WBC 01/25/21 20:50 D-Dimer 1.79 ug/mIFEU (0-0.59) H 01/25/21 20:50 Specimen Type Arterial 01/25/21 21:48 Sample Site Radial, right 01/25/21 21:48 ABG pH 7.42 (7.35-7.45) 01/25/21 21:48 ABG pCO2 37.0 mmHg (35-45) 01/25/21 21:48 ABG pO2 85.9 mmHg (80.0-100.0) 01/25/21 21:48 ABG HCO3 23.7 mmol/L (22-26) 01/25/21 21:48 ABG Base Excess -0.6 mmol/L (-2.0-2.0) 01/25/21 21:48 Solitario Test Pos 01/25/21 21:48 Hematocrit 45.5 % (42-52) 01/25/21 21:48 O2 Delivery Device Nc 01/25/21 21:48 O2 Liters/Min 2.0 % 01/25/21 21:48 Clinical Rehabilitation Specialist ID [email or web address] 01/25/21 21:48 Sodium 137 mmol/L (136-145) 01/25/21 20:50 Potassium 3.9 mmol/L (3.5-5.1) 01/25/21 20:50 Chloride 101 mmol/L (98-107) 01/25/21 20:50 Carbon Dioxide 22 mmol/L (22-29) 01/25/21 20:50 Anion Gap 17.9 (5-19) 01/25/21 20:50 BUN 21 mg/dL (8-23) 01/25/21 20:50 Creatinine 0.6 mg/dL (0.7-1.2) L 01/25/21 20:50 GFR Calculation Not Reportable 01/25/21 20:50 Glucose 98 mg/dL (65-115) 01/25/21 20:50 Calculated Osmolality 287 mOsm/kg (285-295) 01/25/21 20:50 Lactate 1.4 mmol/L (0.5-2.2) 01/25/21 20:50 Calcium 9.4 mg/dL (8.5-10.5) 01/25/21 20:50 Total Bilirubin 0.7 mg/dL (0.15-1.2) 01/25/21 20:50 AST 13 U/L (0-40) 01/25/21 20:50 ALT 13 U/L (0-41) 01/25/21 20:50 Alkaline Phosphatase 142 IU/L (40-130) H 01/25/21 20:50 Creatine Kinase 34 U/L (39-308) L 01/25/21 20:50 C-Reactive Protein 13.5 mg/L (0.0-4.9) H 01/25/21 20:50 NT-Pro-B Natriuret Pep 135 pg/mL (0-125) H 01/25/21 20:50 Total Protein 6.4 g/dL (6.6-8.7) L 01/25/21 20:50 Albumin 3.7 g/dL (3.5-5.2) 01/25/21 20:50 Globulin 2.7 g/dL (1.3-4.6) 01/25/21 20:50 Procalcitonin 0.10 ng/mL (0-0.5) 01/25/21 20:50 Impressions Chest X-Ray 01/25/21 21:23 IMPRESSION: No focal acute pulmonary disease. Radiation Dose CTDIVOL = (mGy): DLP = (mGy-cm) Chest CTA 01/25/21 21:44 IMPRESSION: 1. Negative for pulmonary embolism. 2. Soft tissue pulmonary mass in the right hilum is mildly larger than comparison imaging. 3. Numerous bilateral satellite pulmonary nodules are larger or new from comparison imaging consistent with metastatic disease. Radiation Dose CTDIVOL = (mGy): DLP = 613.07 (mGy-cm) ADDENDUM: 01/26/21 0113 Mild concavity of the superior vertebral endplate at the T11 level is noted which is new since 07/05/2021 but is otherwise of indeterminate chronicity representing a mild vertebral compression fracture deformity. No paraspinal soft tissue hematoma identified. Radiation Dose CTDIVOL = (mGy): DLP = 613.07 (mGy-cm) Abdomen/Pelvis CT 01/25/21 23:42 IMPRESSION: 1. Appearance of the acute mild T11 compression fracture since 2018. 2. No acute intra-abdominal findings. Stable focal ectasia of the distal abdominal aorta. 3. Interval slight enlargement of the small hiatal hernia. Continued prominent prostatic enlargement. Rectal anastomosis still present. Other findings detailed above. COMMENTS: Consistent with the [employer]'s Incidental Findings Committee white paper (J Am Delio Radiol 2018): Any incidental renal lesion less than 1 cm or classified as too small to characterize, or any incidental cystic renal lesion characterized as simple-appearing, is likely benign. No follow-up imaging is recommended for these lesions per consensus recommendations based on imaging criteria. Radiation Dose CTDIVOL = (mGy): DLP = 1459.98 (mGy-cm) A&P Assessment and plan (1) Acute exacerbation of chronic obstructive pulmonary disease: Patient presenting today with chief complaints of intractable nausea and dyspnea. CTA of the chest negative for any PE or consolidation. Noted known lung mass with satellite lesions which is metastatic lesion from adenocarcinoma. Per radiology report appears to have increased in size, some compression effect over the airways. Current dyspnea may be related to either this known malignancy versus a COPD exacerbation. DuoNeb every 6 hours inhaled, budesonide every 12 hours inhaled Holding off on systemic steroids at this time, no wheezing on exam currently. denies chest pain or palpitations Status: Acute (2) Vomiting: Intractable vomiting since discharge. Patient was reporting constipation and difficulty passing flatus since discharge, however today has had 7-8 episodes of diarrhea after taking laxatives. CT abdomen without acute intra-abdominal findings. Rectal anastomosis appears intact and without obstruction. 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
[2021-01-26] MEDS: ketorolac 30 mg/mL INJ 15 MG IVP (07:58)
[2021-01-26 08:19] LABS: Troponin(5th) Baseline 21 ng/L (0-15)
[2021-01-26] MEDS: enoxaparin 30 mg/0.3 mL Syringe SUBCUT (08:19)
[2021-01-26] MEDS: pantoprazole DR 40 mg Tablet PO (08:20)
[2021-01-26] MEDS: docusate sodium 100 mg Capsule PO ×2 (08:20→17:30)
[2021-01-26] MEDS: ipratropium-albuterol 3 mL Neb INHALATION ×3 (08:35→20:10)
[2021-01-26] MEDS: budesonide 0.5 mg/2 mL Neb INHALATION ×2 (08:35→20:10)
--- NOTE | 2021-01-26 08:53 | CTR_ITS ---
PROCEDURE INFORMATION: Exam: CT Head Without Contrast Exam date and time: 01/26/2021 8:53 AM Age: 75 years old Clinical indication: Other: Vomiting; Additional info: Vommiting, HX of mets rectal CA to lung TECHNIQUE: Imaging protocol: Computed tomography of the head without contrast. Total images: 207 Radiation optimization: All CT scans at this facility use at least one of these dose optimization techniques: automated exposure control; mA and/or kV adjustment per patient size (includes targeted exams where dose is matched to clinical indication); or iterative reconstruction. COMPARISON: MR head wo/w con [id number] 04/05/2020 8:21 AM RADIATION DOSE METRICS: Total DLP (mGy-cm): 640.54 FINDINGS: Brain: Global brain atrophy and chronic white matter ischemic changes are present. Cerebral ventricles: Ventricles are appropriate in size for degree of atrophy. Paranasal sinuses: Visualized sinuses are unremarkable. No fluid levels. Mastoid air cells: Visualized mastoid air cells are well aerated. Bones/joints: Unremarkable. No acute fracture. Soft tissues: Unremarkable. CT/CT head wo con* [id number] IMPRESSION: No acute intracranial abnormality. Radiation Dose CTDIVOL = (mGy): DLP = 640.54 (mGy-cm)
--- NOTE | 2021-01-26 08:55 | USR_ITS ---
PROCEDURE INFORMATION: Exam: US Duplex Lower Extremity Veins, Bilateral Exam date and time: 01/26/2021 8:55 AM Age: 75 years old Clinical indication: Swelling (edema) of limb; Lower extremity, bilateral; Additional info: Kyphoplasty, now hypoxia, possible dvt TECHNIQUE: Imaging protocol: Real-time duplex ultrasound of the extremities with 2-D cantu scale, color Doppler flow and spectral waveform analysis with image documentation. Complete exam focused on the bilateral lower extremity veins. Total images: 52 COMPARISON: CT abdomen pelvis wo con [id number] 01/25/2021 11:49 PM FINDINGS: Right deep veins: Unremarkable. The common femoral, femoral, proximal profunda femoral and popliteal veins are patent without thrombus. Normal Doppler waveforms. Normal compressibility and/or augmentation response. Right superficial veins: Saphenofemoral junction is patent without thrombus. Left deep veins: Unremarkable. The common femoral, femoral, proximal profunda femoral and popliteal veins are patent without thrombus. Normal Doppler waveforms. Normal compressibility and/or augmentation response. Left superficial veins: Saphenofemoral junction is patent without thrombus. Soft tissues: Unremarkable. US/CV venous duplex [facility] [id number] IMPRESSION: No evidence of deep vein thrombosis. Radiation Dose CTDIVOL = (mGy): DLP = (mGy-cm)
--- NOTE | 2021-01-26 09:13 | ECG_ITS ---
[facility] Test Date: 2021-01-26 Pat Name: Oswaldo Khan Department: Room: 275 Gender: Male Quality Supervisor: : 1945 Requested By: Leandra Hercules Order Number: [id number] Lucia MD: Sascha Parekh M.D. Measurements Intervals [place] Rate: 117 P: 75 NV: 139 QRS: 74 QRSD: 86 T: 72 QT: 326 QTc: 455 Interpretive Statements SINUS TACHYCARDIA WITH OCCASIONAL SUPRAVENTRICULAR PREMATURE COMPLEXES ABNORMAL RHYTHM ECG Compared to ECG 01/17/2021 11:02:44 Sinus rhythm no longer present Electronically Signed On 01-27-2021 18:38:29 CDT by Sascha Parekh M.D. [id number]
[2021-01-26] MEDS: piperacillin-tazobactam 3.375 GM in sodium chloride 0.9% (plus) 50 ML IV ×2 (09:52→16:31)
--- NOTE | 2021-01-26 13:13 | ECG_ITS ---
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 Measurements Intervals [place] Rate: 102 P: 72 DE: 134 QRS: 75 QRSD: 83 T: 72 QT: 325 QTc: 425 Interpretive Statements SINUS TACHYCARDIA ABNORMAL RHYTHM ECG Compared to ECG 01/26/2021 10:31:50 No significant changes Electronically Signed On 01-27-2021 18:38:37 CDT by Sascha Parekh M.D. [id number]
[2021-01-26 14:31] LABS: Troponin 5 6HR 19.59 ng/L (0-15)
[2021-01-26 14:33] LABS: Troponin 5 6HR Delta -1.41 ng/L (0-12)
[2021-01-26] MEDS: ondansetron 2 mg/ML SDV 2 mL 4 MG IVP ×2 (16:32→23:24)
--- NOTE | 2021-01-26 16:47 | PM.PN ---
Subjective Subjective: Interval history: Patient was seen this morning, he sitting up to the side of the bed, he is hard of hearing, he tells me that more brought him in was back pain and nausea, and vomiting, the nausea vomiting have improved, the back pain currently is minimal, but is persisting since his back surgery Vitals/I&O/Wt Last Vital Signs Temp 98.8 F 01/26/21 16:00 Pulse 102 H 01/26/21 16:00 Resp 14 01/26/21 16:00 BP 166/90 01/26/21 16:00 Pulse Ox 95 01/26/21 16:00 01/26/21 01/26/21 01/26/21 06:59 14:59 22:59 Intake Total 480 / 1480 530 / 530 Output Total 750 / 750 300 / 300 100 / 400 Balance -270 / 730 230 / 230 -100 / 130 Weight last 48 hrs Weight 90.718 kg Physical Exam Const: COMMON NORMALS: no acute distress and patient oriented x3 Resp: COMMON NORMALS: normal respiratory effort, No retractions and No use of accessory muscles AUSCULTATION: wheezes Cardio: COMMON NORMALS: regular rate, regular rhythm, S1 normal heart sound present and S2 normal heart sound present RATE: regular rate RHYTHM: regular rhythm HEART SOUNDS: S1 normal heart sound present and S2 normal heart sound present GI: COMMON NORMALS: Normal to inspection, nondistended, normoactive bowel sounds present, Soft to palpation and non-tender PALPATION: Yes Soft to palpation Extremity: COMMON NORMALS: no pedal edema Neuro: COMMON NORMALS: patient oriented x3 Psych: COMMON NORMALS: mental status grossly normal Data : 01/25/21 20:50 01/25/21 20:50 Micro: Microbiology 01/25/21 22:26 Blood Culture - Preliminary Blood SPECIMEN COLLECTED 01/25/21 22:20 Blood Culture - Preliminary Blood SPECIMEN COLLECTED A&P Assessment and plan (1) Acute exacerbation of chronic obstructive pulmonary disease: Patient presenting today with chief complaints of intractable nausea and dyspnea. CTA of the chest negative for any PE or consolidation. Noted known lung mass with satellite lesions which is metastatic lesion from adenocarcinoma. Per radiology report appears to have increased in size, some compression effect over the airways. Current dyspnea related to aspiration pneumonia, COPD exacerbation DuoNeb every 6 hours inhaled, budesonide every 12 hours inhaled Continue Zosyn, prednisone denies chest pain or palpitations Status: Acute (2) Vomiting: Intractable vomiting since discharge. Patient was reporting constipation and difficulty passing flatus since discharge, however today has had 7-8 episodes of diarrhea after taking laxatives. CT abdomen without acute intra-abdominal findings. Rectal anastomosis appears intact and without obstruction. prn zofran for symptomatic control monitor for response Status: Acute Qualifiers: Nausea presence: with nausea Vomiting type: bilious vomiting Qualified Code(s): R11.14 - Bilious vomiting (3) Aspiration pneumonia: Status: Acute (4) Compression fracture of T11 vertebra: -Likely exacerbation of pain, continue pain control, can consider intranasal calcitonin, will discuss with Dr. 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
[2021-01-26] MEDS: predniSONE 20 mg Tablet 40 MG PO (17:30)
[2021-01-26] MEDS: acetaminophen 325 mg Tablet 650 MG PO (22:14)
[2021-01-26] MEDS: morphine 4 mg/mL SDV 1 mL 2 MG IVP (23:22)
[2021-01-26 23:27] LABS: Glucose Point of Care 137 mg/dL (70-110)
[2021-01-27] VITALS (13 sets, daily range): BP systolic 97–143; BP diastolic 62–87; PULSE 90–110; RESP 16–18; TEMP 36.5–37.3; O2SAT 90–96
[2021-01-27] MEDS: piperacillin-tazobactam 3.375 GM in sodium chloride 0.9% (plus) 50 ML IV ×3 (01:20→16:51)
[2021-01-27] MEDS: ipratropium-albuterol 3 mL Neb INHALATION ×4 (01:25→19:16)
[2021-01-27 04:26] LABS: Basophils % 0.5 %; Hemoglobin 12.7 g/dL (11.7-16.6); Lymphocytes # 0.7 10^3/uL (0.8-4.8); Lymphocytes % 10.7 %; Mean Corpuscular HGB Conc 32.6 g/dL (30.0-36.0); Mean Corpuscular Hemoglobin 28.9 pg (28.0-34.0); Mean Corpuscular Volume 88.6 fl (80-94); Mean Platelet Volume 9.9 fL (7.4-10.4); Monocytes # 0.3 10^3/uL (0.2-0.9); Neutrophils % 84.2 %; Nucleated Red Blood Cells % 0 %; Platelet Count 205 10^3/cmm (130-400); Red Cell Distribution Width 15.9 % (12.1-15.1); White Blood Count 6.5 10^3/uL (4.0-10.0)
[2021-01-27 04:54] LABS: Alanine Aminotransferase 14 U/L (0-41); Albumin Level 3.3 g/dL (3.5-5.2); Alkaline Phosphatase 116 IU/L (40-130); Aspartate Amino Transferase 17 U/L (0-40); Blood Urea Nitrogen 19 mg/dL (8-23); Carbon Dioxide 23 mmol/L (22-29); Chloride 100 mmol/L (98-107); Globulin 2.4 g/dL (1.3-4.6); Glucose 224 mg/dL (65-115); Osmolality Calculated 283 mOsm/kg (285-295); Sodium 132 mmol/L (136-145); Total Bilirubin 0.5 mg/dL (0.15-1.2); Total Protein 5.7 g/dL (6.6-8.7)
[2021-01-27] MEDS: morphine 4 mg/mL SDV 1 mL 2 MG IVP (05:16)
[2021-01-27] MEDS: pantoprazole DR 40 mg Tablet PO (08:28)
[2021-01-27] MEDS: docusate sodium 100 mg Capsule PO ×2 (08:28→16:51)
[2021-01-27] MEDS: enoxaparin 30 mg/0.3 mL Syringe SUBCUT (08:28)
[2021-01-27] MEDS: predniSONE 20 mg Tablet 40 MG PO (08:28)
[2021-01-27] MEDS: budesonide 0.5 mg/2 mL Neb INHALATION ×2 (08:30→19:16)
--- NOTE | 2021-01-27 13:38 | P.PN_ITS ---
Subjective Subjective: Interval history: Patient was seen this morning, he continues to improve back pain, no fevers, chills, nausea, no vomiting, is requiring 1 to 2 L Vitals/I&O/Wt Last Vital Signs Temp 97.7 F 01/27/21 11:40 Pulse 95 01/27/21 11:40 Resp 17 01/27/21 11:40 BP 124/76 01/27/21 11:40 Pulse Ox 90 01/27/21 11:40 01/26/21 01/27/21 01/27/21 22:59 06:59 14:59 Intake Total 50 / 580 50 / 630 240 / 240 Output Total 250 / 550 100 / 650 Balance -200 / 30 -50 / -20 240 / 240 Weight last 48 hrs Weight 90.718 kg Physical Exam Const: COMMON NORMALS: no acute distress and patient oriented x3 Resp: COMMON NORMALS: normal respiratory effort, No retractions, No use of accessory muscles and clear to auscultation bilaterally AUSCULTATION: clear to auscultation bilaterally Cardio: COMMON NORMALS: regular rate, regular rhythm, S1 normal heart sound present and S2 normal heart sound present RATE: regular rate RHYTHM: regular rhythm HEART SOUNDS: S1 normal heart sound present and S2 normal heart sound present GI: COMMON NORMALS: Normal to inspection, nondistended, normoactive bowel sounds present, Soft to palpation and non-tender PALPATION: Yes Soft to palpation Extremity: COMMON NORMALS: no pedal edema Neuro: COMMON NORMALS: patient oriented x3 Psych: COMMON NORMALS: mental status grossly normal Data : 01/27/21 03:55 01/27/21 03:55 Micro: Microbiology 01/25/21 22:26 Blood Culture - Preliminary Blood NEGATIVE TO DATE 01/25/21 22:20 Blood Culture - Preliminary Blood NEGATIVE TO DATE A&P Assessment and plan (1) Acute exacerbation of chronic obstructive pulmonary disease: Patient presenting today with chief complaints of intractable nausea and dyspnea. CTA of the chest negative for any PE or consolidation. Noted known lung mass with satellite lesions which is metastatic lesion from adenocarcinoma. Per radiology report appears to have increased in size, some compression effect over the airways. Current dyspnea related to aspiration pneumonia, COPD exacerbation DuoNeb every 6 hours inhaled, budesonide every 12 hours inhaled Continue Zosyn, prednisone denies chest pain or palpitations Status: Acute (2) Vomiting: Intractable vomiting since discharge. Patient was reporting constipation and difficulty passing flatus since discharge, however today has had 7-8 episodes of diarrhea after taking laxatives. CT abdomen without acute intra- abdominal findings. Rectal anastomosis appears intact and without obstruction. prn zofran for symptomatic control monitor for response Status: Acute Qualifiers: Nausea presence: with nausea Vomiting type: bilious vomiting Qualified Code(s): R11.14 - Bilious vomiting (3) Aspiration pneumonia: Status: Acute (4) Compression fracture of T11 vertebra: -Likely exacerbation of pain, continue pain control, intranasal calcitonin, TLSO brace, will discuss with Dr. 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
[2021-01-27] MEDS: calcitonin nasal 200 unit/spray 3.7 mL Btl 1 SPRAY NOSTRIL-AL (14:41)
[2021-01-27] MEDS: ketorolac 30 mg/mL INJ 15 MG IVP ×2 (14:47→23:05)
--- NOTE | 2021-01-27 17:07 | PC.NURSE ---
END OF SHIFT SUMMARY PT HAS WENT BACK AND FORTH TO CHAIR AND BED WITH OXYGEN IN PLACE - PT HAS COMPLAINED THROUGHOUT SHIFT OF NOT FEELING WELL - IV ANTIBOTICS GIVEN ORDERED - IV PAIN MEDICATION GIVEN FOR BACK PAIN - WILL FROM PT IN [place] TO ASSIST AND EDUCATE PT TO TLSO BRACE - UPPER BACK DRESSING X3 REMAIN WITH SMALL AMOUNT OF DRAINAGE NOTED - WILL CONTINUE TO MONITOR
[2021-01-28] VITALS (10 sets, daily range): BP systolic 128–164; BP diastolic 77–92; PULSE 75–99; RESP 16–24; TEMP 36.7–36.9; O2SAT 92–96
[2021-01-28 00:16] LABS: Add Urine Microscopic? NO; Charge for UA Resulting for Rev
[2021-01-28 00:23] LABS: Bilirubin Urine Neg (Negative); Blood Urine Neg (Negative); Glucose Urine UA 2+ (Normal); Ketones Urine 1+ (Negative); Leukocyte Esterase Urine Negative (Negative); Nitrate Urine Negative (Negative); Protein Urine Neg (Negative); Urine Appearance Clear (CLEAR); Urine Color Yellow (Yellow); Urobilinogen Urine 1 mg/dL (Negative); pH Urine 5 (5-7)
[2021-01-28] MEDS: piperacillin-tazobactam 3.375 GM in sodium chloride 0.9% (plus) 50 ML IV ×3 (01:29→17:49)
[2021-01-28] MEDS: morphine 4 mg/mL SDV 1 mL 2 MG IVP ×2 (01:37→17:06)
[2021-01-28 05:50] LABS: Basophils # 0.1 10^3/uL (0.0-0.1); Eosinophils # 0.2 10^3/uL (0.0-0.8); Eosinophils % 1.8 %; Hematocrit 38.5 % (42.0-52.0); Hemoglobin 12.6 g/dL (11.7-16.6); Lymphocytes # 1.7 10^3/uL (0.8-4.8); Lymphocytes % 19.5 %; Mean Corpuscular HGB Conc 32.7 g/dL (30.0-36.0); Mean Corpuscular Hemoglobin 28.3 pg (28.0-34.0); Mean Corpuscular Volume 86.5 fl (80-94); Mean Platelet Volume 9.6 fL (7.4-10.4); Monocytes # 0.7 10^3/uL (0.2-0.9); Monocytes % 8.4 %; Neutrophils # 6.01 10^3/uL (1.8-7.7); Neutrophils % 69.1 %; Nucleated Red Blood Cells % 0 %; Platelet Count 221 10^3/cmm (130-400); Red Blood Count 4.45 10^6/uL (4.1-5.3); Red Cell Distribution Width 15.8 % (12.1-15.1); White Blood Count 8.7 10^3/uL (4.0-10.0)
[2021-01-28 06:18] LABS: Alanine Aminotransferase 16 U/L (0-41); Albumin Level 3.4 g/dL (3.5-5.2); Alkaline Phosphatase 108 IU/L (40-130); Anion Gap 15.6 (5-19); Aspartate Amino Transferase 16 U/L (0-40); Blood Urea Nitrogen 14 mg/dL (8-23); Calcium 9.2 mg/dL (8.5-10.5); Carbon Dioxide 24 mmol/L (22-29); Chloride 103 mmol/L (98-107); Globulin 2.1 g/dL (1.3-4.6); Glucose 92 mg/dL (65-115); Magnesium 1.4 mg/dL (1.7-2.3); Osmolality Calculated 288 mOsm/kg (285-295); Phosphorus 3.6 mg/dL (2.5-4.5); Potassium 3.6 mmol/L (3.5-5.1); Sodium 139 mmol/L (136-145); Total Bilirubin 0.5 mg/dL (0.15-1.2); Total Protein 5.5 g/dL (6.6-8.7)
[2021-01-28] MEDS: enoxaparin 30 mg/0.3 mL Syringe SUBCUT (07:59)
[2021-01-28] MEDS: docusate sodium 100 mg Capsule PO ×2 (07:59→17:49)
[2021-01-28] MEDS: calcitonin nasal 200 unit/spray 3.7 mL Btl 1 SPRAY NOSTRIL-AL (07:59)
[2021-01-28] MEDS: predniSONE 20 mg Tablet 40 MG PO (07:59)
[2021-01-28] MEDS: pantoprazole DR 40 mg Tablet PO (07:59)
[2021-01-28] MEDS: ipratropium-albuterol 3 mL Neb INHALATION ×2 (08:44→16:21)
[2021-01-28] MEDS: budesonide 0.5 mg/2 mL Neb INHALATION (08:45)
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
[2021-01-28] MEDS: lidocaine 5% Patch 1 PATCH TOPICAL (14:28)
[2021-01-28] MEDS: magnesium sulfate premix 2 GM/50 ML PIGGYBACK IV (14:29)
[2021-01-28] MEDS: polyethylene glycol 3350 Pkt 17 gm PO (17:49)
[2021-01-28] MEDS: ondansetron 2 mg/ML SDV 2 mL 4 MG IVP (21:04)
[2021-01-29] VITALS (12 sets, daily range): BP systolic 144–157; BP diastolic 86–98; PULSE 85–101; RESP 16–24; TEMP 36.4–37; O2SAT 2–95
[2021-01-29] MEDS: piperacillin-tazobactam 3.375 GM in sodium chloride 0.9% (plus) 50 ML IV ×3 (01:30→18:13)
[2021-01-29] MEDS: ondansetron 2 mg/ML SDV 2 mL 4 MG IVP (03:21)
[2021-01-29] MEDS: morphine 4 mg/mL SDV 1 mL 2 MG IVP (03:21)
[2021-01-29 06:34] LABS: Basophils # 0.1 10^3/uL (0.0-0.1); Basophils % 0.7 %; Eosinophils # 0.1 10^3/uL (0.0-0.8); Hematocrit 43.6 % (42.0-52.0); Hemoglobin 14.8 g/dL (11.7-16.6); Lymphocytes # 2.4 10^3/uL (0.8-4.8); Lymphocytes % 19.7 %; Mean Corpuscular HGB Conc 33.9 g/dL (30.0-36.0); Mean Corpuscular Hemoglobin 29.4 pg (28.0-34.0); Mean Corpuscular Volume 86.5 fl (80-94); Mean Platelet Volume 9.4 fL (7.4-10.4); Neutrophils # 8.54 10^3/uL (1.8-7.7); Neutrophils % 70.1 %; Nucleated Red Blood Cells % 0 %; Platelet Count 270 10^3/cmm (130-400); Red Blood Count 5.04 10^6/uL (4.1-5.3); White Blood Count 12.2 10^3/uL (4.0-10.0)
[2021-01-29 07:10] LABS: Alanine Aminotransferase 38 U/L (0-41); Albumin Level 3.9 g/dL (3.5-5.2); Alkaline Phosphatase 134 IU/L (40-130); Aspartate Amino Transferase 35 U/L (0-40); Blood Urea Nitrogen 15 mg/dL (8-23); Calcium 9.6 mg/dL (8.5-10.5); Carbon Dioxide 24 mmol/L (22-29); Chloride 100 mmol/L (98-107); Globulin 2.9 g/dL (1.3-4.6); Glucose 97 mg/dL (65-115); Magnesium 1.9 mg/dL (1.7-2.3); Osmolality Calculated 283 mOsm/kg (285-295); Phosphorus 3.3 mg/dL (2.5-4.5); Sodium 136 mmol/L (136-145); Total Bilirubin 0.7 mg/dL (0.15-1.2); Total Protein 6.8 g/dL (6.6-8.7)
[2021-01-29] MEDS: calcitonin nasal 200 unit/spray 3.7 mL Btl 1 SPRAY NOSTRIL-AL (08:21)
[2021-01-29] MEDS: predniSONE 20 mg Tablet 40 MG PO (08:21)
[2021-01-29] MEDS: docusate sodium 100 mg Capsule PO ×2 (08:21→18:12)
[2021-01-29] MEDS: pantoprazole DR 40 mg Tablet PO ×2 (08:21→18:12)
[2021-01-29] MEDS: enoxaparin 30 mg/0.3 mL Syringe SUBCUT (08:21)
[2021-01-29] MEDS: ipratropium-albuterol 3 mL Neb INHALATION ×3 (08:25→21:33)
[2021-01-29] MEDS: budesonide 0.5 mg/2 mL Neb INHALATION ×2 (10:47→21:33)
--- NOTE | 2021-01-29 11:45 | CT_ITS ---
WS: [id number] CT ABDOMEN AND PELVIS NONCONTRAST HISTORY: vomiting, abdominal tenderness, leukocytosis, no BM TECHNIQUE: Imaging performed through the abdomen and pelvis. Coronal and sagittal reformats are submi tted. All CT scans at [facility] use at least one of these dose optimization techniques: auto mated exposure control; mA and/or kV adjustment per patient size (includes targeted exams where dose is matched to clinical indication); or iterative reconstruction. DLP: 1509.07 mGy.cm COMPARISON: 01/25/2021 Lower thorax: Hyperinflated lungs from emphysema. Lobulated nodule at the RIGHT lung base measures 13 mm. Slow increase in size since 03/19/2018. Normal size heart. Small pericardial effusion anteriorly . Small hiatal hernia. Liver: Normal size with granulomata. No bile duct dilatation. Gallbladder: Prior cholecystectomy. Pancreas: Normal size and attenuation. Normal pancreatic duct. No pancreatitis or mass. Spleen: Normal size with granulomata. Adrenal glands: Normal. No mass. Right kidney: Perinephric stranding. No obstruction. Left kidney: Perinephric stranding with no obstruction. Aorta: Ectatic abdominal aorta. Similar to prior studies with no aneurysm. No free fluid, intraperitoneal air or significant lymphadenopathy. GI tract: Progressive fluid dilatation of the mid to distal small bowel. Fluid-filled loops measure u p to 3.0 cm in diameter. The exact site of the obstruction is not apparent. Abdominal wall: Negative. No hernia. Pelvis: Moderate prostate gland enlargement. Prostate measures 5.2 x 6.0 x 4.8 cm. Osseous structures: Unremarkable. CT/CT abdomen pelvis wo con [id number] IMPRESSION: 1. Interval progression of fluid filled small bowel loops. Mid to distal small bowel obstruction. The site of the obstruction is not apparent 2. Prior cholecystectomy. 3. No free air. 4. Prostate gland enlargement.
--- NOTE | 2021-01-29 13:38 | P.PN_ITS ---
Subjective Subjective: Interval history: Persistently nauseated, again vomiting overnight. No bowel movement since Thursday. So far has not responded to bowel regimen. Having abdominal discomfort/pain. Vitals/I&O/Wt Last Vital Signs Temp 98.6 F 01/29/21 11:39 Pulse 89 01/29/21 11:39 Resp 24 H 01/29/21 11:39 BP 149/93 01/29/21 11:39 Pulse Ox 94 01/29/21 11:39 01/28/21 01/29/21 01/29/21 22:59 06:59 14:59 Intake Total 270 / 510 50 / 560 Output Total 250 / 400 625 / 1025 100 / 100 Balance 20 / 110 -575 / -465 -100 / -100 Physical Exam Narrative: EXAM NARRATIVE: Extremely hard of hearing. Const: COMMON NORMALS: patient oriented x3 GENERAL APPEARANCE: not comfortable HENMT: COMMON NORMALS: oropharynx normal Neck/C-Spine: COMMON NORMALS: no JVD Resp: COMMON NORMALS: normal respiratory effort AUSCULTATION: diminished lung sounds Cardio: COMMON NORMALS: no JVD, regular rhythm, S1 normal heart sound present, S2 normal heart sound present and No murmurs present (Cardio) RHYTHM: regular rhythm HEART SOUNDS: S1 normal heart sound present and S2 normal heart sound present GI: COMMON NORMALS: Normal to inspection, nondistended, normoactive bowel sounds present and Soft to palpation INSPECTION: Yes abdominal distension PALPATION: Yes Soft to palpation and Yes Tenderness to palpation present (GI) Extremity: COMMON NORMALS: no joint enlargement and no pedal edema Neuro: COMMON NORMALS: patient oriented x3 and moves all extremities Skin: COMMON NORMALS: no rashes or lesions noted GENERAL SKIN EXAM: no rashes or lesions noted Data : 01/29/21 06:04 01/29/21 06:04 Micro: Microbiology 01/28/21 00:15 Urine Culture - Preliminary Urine,Voided A&P Assessment and plan (1) Vomiting: Nauseated yesterday, again vomiting overnight. Abdomen distended, tender. States no BM since Thursday. Did not respond to bowel regimen so far. History of APR. Repeated CT scan due to persistent symptoms with signs of bowel obstruction. De-escalate diet to clear liquids. Continue bowel regimen. Surgical evaluation. Status: Acute Qualifiers: Nausea presence: with nausea Vomiting type: bilious vomiting Qualified Code(s): R11.14 - Bilious vomiting (2) Acute exacerbation of chronic obstructive pulmonary disease: Breathing gradually improving, transiently weaned down to room air, although currently still requiring 2 L of oxygen. With recurrent vomiting, in addition to COPD exacerbation may have had some component of aspiration pneumonitis as well. Continue Zosyn. Prednisone. Patient presenting today with chief complaints of intractable nausea and dyspnea. CTA of the chest negative for any PE or consolidation. Noted known lung mass with satellite lesions which is metastatic lesion from adenocarcinoma. Per radiology report appears to have increased in size, some compression effect over the airways. Current dyspnea related to aspiration pneumonia, COPD exacerbation DuoNeb every 6 hours inhaled, budesonide every 12 hours inhaled Continue Zosyn, prednisone denies chest pain or palpitations Status: Acute (3) Aspiration pneumonia: Status: Acute (4) Compression fracture of T11 vertebra: -TLSO brace. He does sit up in bed, ambulates to the restroom. Continue pain control, intranasal calcitonin, TLSO brace. Status: Acute Additional A&P Information Hypomagnesemia: Replaced Attestations Medical Necessity Statement*: Continue admission for assessment management of recurrent vomiting, bowel obstruction, COPD exacerbation. 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
--- NOTE | 2021-01-29 15:59 | P.CONIM_ITS ---
Providers/Reason For Consult Consulting Physician/Specialty*: General Surgery Hugo Hallman MD Reason for Consult*: Small bowel obstruction by CT. Attending Physician: Georgi Bolton Primary Care Provider: MARIAMA Stanton History of Present Illness History of Present Illness Oswaldo Khan is a 75 year old male admitted recently with an acute exacerbation of COPD and some vomiting. He tells me that vomiting has been a regular part of his life for years. He tells me that he is always constipated and will sometimes go 10 days without having a bowel movement. He then will take some laxatives and will have multiple loose bowel movements. He has not had a colonoscopy since 2016 and says he will never have another one. On admission he had an abdominal/pelvic CT which showed a mild T11 compression fracture which was relatively new but no acute intra-abdominal findings. He was found to have slight enlargement of a small hiatal hernia from a previous study. Since then, however, the patient has had some vomiting and says he is having some abdominal cramping. He says this has been going on for some time, as well. He had another CAT scan today which showed some dilated loops of small bowel. The radiologist thought this may represent a small bowel obstruction even though there was not a clear transition point anywhere. Review of Systems Const: Denies: fever(s) GI: Reports: abdominal pain, nausea, vomiting and constipation Meds/Allergies Home Medications and Allergies Home Medications Medication Instructions Recorded Confirmed Last Taken Type lisinopril 40 mg tablet 40 mg PO DAILY #30 tab 10/17/20 01/26/21 01/25/21 09:00 Rx hydrocodone 5 mg-acetaminophen 325 1 - 2 tab PO .Q4-6H PRN 7 Days #40 01/24/21 01/26/21 01/24/21 21:00 Rx mg tablet tab omeprazole 20 mg PO DAILY 01/25/21 01/26/21 01/25/21 09:00 History Stiolto Respimat 2 puff INHALATION DAILY 01/26/21 01/26/21 01/25/21 History capecitabine 300 mg PO BID 01/26/21 01/26/21 Unknown History capecitabine [Xeloda] 1,000 mg PO BID 01/26/21 01/26/21 Unknown History oxycodone 10 mg PO Q6H PRN 01/26/21 01/26/21 Unknown History prednisone 20 mg PO DAILY 01/26/21 01/26/21 Unknown History Allergies Allergy/AdvReac Type Severity Reaction Status Date / Time No Known Allergies Allergy Verified 01/25/21 21:00 Current Medications Current Medications Generic Name Dose Route Start Last Admin Trade Name Freq PRN Reason Stop Dose Admin Acetaminophen 650 mg 01/26/21 03:11 01/26/21 22:14 Acetaminophen 325 Mg Tablet PO 650 mg Q6H PRN Administration Mild/Mod Pain Or Temp >/= 101 Albuterol/Ipratropium 3 ml 01/26/21 07:30 01/29/21 14:32 Ipratropium-Albuterol 3 Ml Neb INHALATION 3 ml Q6H MARTÍNEZ Administration Budesonide 0.5 mg 01/26/21 08:00 01/29/21 10:47 Budesonide 0.5 Mg/2 Ml Neb INHALATION 0.5 mg BID.RESPIRATORY MARTÍNEZ Administration Calcitonin [place] 1 spray 01/27/21 14:00 01/29/21 08:21 Calcitonin Nasal 200 Unit/[place] 3.7 Ml Btl NOSTRIL-AL 1 puff DAILY MARTÍNEZ Administration Docusate Sodium 100 mg 01/26/21 09:00 01/29/21 08:21 Docusate Sodium 100 Mg Capsule PO 100 mg BID MARTÍNEZ Administration Enoxaparin Sodium 30 mg 01/26/21 09:00 01/29/21 08:21 Enoxaparin 30 Mg/0.3 Ml Syringe SUBCUT 30 mg Q24H MARTÍNEZ Administration Piperacillin Sod/Tazobactam 50 mls @ 12.5 mls/hr 01/26/21 09:30 01/29/21 15:21 Sod 3.375 gm/ Sodium Chloride IV Infused Q8H MARTÍNEZ Infusion Protocol Lidocaine 1 patch 01/28/21 12:00 01/29/21 02:44 Lidocaine 5% Patch TOPICAL Not Given [id number] MARTÍNEZ Morphine Sulfate 2 mg 01/26/21 07:23 01/29/21 03:21 Morphine 4 Mg/Ml Sdv 1 Ml IVP 2 mg Q6H PRN Administration SEVERE PAIN Ondansetron HCl 4 mg 01/29/21 01:09 01/29/21 03:21 Ondansetron 2 Mg/Ml Sdv 2 Ml IVP 4 mg Q6H PRN Administration vomiting, or N/V if npo Polyethylene Glycol 17 gm 01/28/21 18:00 01/29/21 08:24 Polyethylene Glycol 3350 Pkt 17 Gm PO Not Given BID MARTÍNEZ PFSH Acute PFSH: Medical History (Updated 01/29/21 @ 16:02 by Hugo Hallman MD) BPH loc w urin obs/LUTS Elevated PSA Essential (primary) hypertension H/O colon cancer, stage III Lung cancer Myalgia Nocturia Prostate CA Urinary retention Urinary urgency Surgical History (Updated 01/29/21 @ 16:15 by Hugo Hallman MD) History of liver biopsy / Percutaneous abscess drainage Port-A-Cath in place S/P colon resection 2016 ([place]) -- sigmoid resection for colon cancer / cholecystectomy / incidental appendectomy / umbilical hernia repair Family History Mother , 62 CAD (coronary artery disease) Diabetes Father , 74 Cancer Colon Social History Smoking and tobacco status: never smoked Quit status (tobacco): has tried quititng Second hand smoke exposure: Yes Smoking risk assessment/counseling performed?: No Alcohol intake: never Desire information about alcohol rehabilitation?: No Counseling given: No Desire information about substance/drug rehabilitation?: No Counseling given: No Adopted: No Caregiver/support person: No Lives independently: Yes Household members: none Housing: House Marital status: Current occupational status: retired History of recent travel: No Current gender identity: Male Vitals/I&O/Wt Last Vital Signs Temp 98.6 F 01/29/21 11:39 Pulse 92 01/29/21 14:32 Resp 18 01/29/21 14:32 BP 149/93 01/29/21 11:39 Pulse Ox 95 01/29/21 14:32 01/29/21 01/29/21 01/29/21 06:59 14:59 22:59 Intake Total 50 / 560 50 / 50 Output Total 625 / 1025 100 / 100 Balance -575 / -465 -100 / -50 50 / -50 Physical Exam Narrative: EXAM NARRATIVE: The patient was encountered in his hospital room. He was found to be very hard of hearing. He does not appear to be in any distress and in fact is resting on his right side when I come in the room. The pupils seem equal. No carotid bruits are heard. The heart is regular. The abdomen is soft but has very few bowel sounds. I cannot really appreciate much in the way of tenderness on exam, however. No obvious masses are palpated. The extremities reveal no edema. Neurologically the patient appears to be grossly intact. Data Micro: Micro: Microbiology 01/28/21 00:15 Urine Culture - Pr eliminary Urine,Voided Imaging^: CT Abd/Pel: Radiologist's impression: CT abdomen/pelvis 01/29/2021 IMPRESSION: 1. Interval progression of fluid filled small bowel loops. Mid to distal small bowel obstruction. The site of the obstruction is not apparent 2. Prior cholecystectomy. 3. No free air. 4. Prostate gland enlargement. A&P Assessment and plan (1) Ileus: Patient examined and CT reviewed. While this might be an early obstructive process, I would favor an ileus at this point. He does have a couple loops of small bowel that are fairly significantly dilated, but he has air throughout his entire colon and has very few bowel sounds and not much tenderness on exam. I will continue following with you for now. Status: Acute Consult Attestations Medical Necessity Statement: See admitting service's notation. 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
[2021-01-29] MEDS: polyethylene glycol 3350 Pkt 17 gm PO (18:12)
[2021-01-29] MEDS: methylnaltrexone 12 /0.6 mL INJ 12 MG SUBCUT (18:12)
[2021-01-29] MEDS: acetaminophen 325 mg Tablet 650 MG PO (20:58)
[2021-01-29] MEDS: lidocaine 5% Patch 1 PATCH TOPICAL (23:03)
[2021-01-30] VITALS (14 sets, daily range): BP systolic 124–151; BP diastolic 78–93; PULSE 84–101; RESP 16–28; TEMP 36.3–36.9; O2SAT 91–98
[2021-01-30] MEDS: piperacillin-tazobactam 3.375 GM in sodium chloride 0.9% (plus) 50 ML IV ×3 (01:58→17:57)
[2021-01-30] MEDS: morphine 4 mg/mL SDV 1 mL 2 MG IVP (02:40)
[2021-01-30 06:03] LABS: Basophils # 0.1 10^3/uL (0.0-0.1); Basophils % 1.2 %; Eosinophils # 0.1 10^3/uL (0.0-0.8); Eosinophils % 1.3 %; Hematocrit 40.4 % (42.0-52.0); Hemoglobin 13.3 g/dL (11.7-16.6); Lymphocytes # 2.2 10^3/uL (0.8-4.8); Lymphocytes % 25.3 %; Mean Corpuscular HGB Conc 32.9 g/dL (30.0-36.0); Mean Corpuscular Hemoglobin 28.4 pg (28.0-34.0); Mean Corpuscular Volume 86.3 fl (80-94); Mean Platelet Volume 9.5 fL (7.4-10.4); Monocytes # 0.6 10^3/uL (0.2-0.9); Monocytes % 7.3 %; Neutrophils # 5.57 10^3/uL (1.8-7.7); Neutrophils % 64.6 %; Nucleated Red Blood Cells % 0 %; Platelet Count 232 10^3/cmm (130-400); Red Blood Count 4.68 10^6/uL (4.1-5.3); Red Cell Distribution Width 15.8 % (12.1-15.1); White Blood Count 8.6 10^3/uL (4.0-10.0)
[2021-01-30 06:40] LABS: Alanine Aminotransferase 46 U/L (0-41); Albumin Level 3.4 g/dL (3.5-5.2); Alkaline Phosphatase 115 IU/L (40-130); Anion Gap 14.7 (5-19); Aspartate Amino Transferase 32 U/L (0-40); Blood Urea Nitrogen 20 mg/dL (8-23); Calcium 9.1 mg/dL (8.5-10.5); Carbon Dioxide 26 mmol/L (22-29); Chloride 99 mmol/L (98-107); Globulin 2.4 g/dL (1.3-4.6); Glucose 82 mg/dL (65-115); Magnesium 1.9 mg/dL (1.7-2.3); Osmolality Calculated 284 mOsm/kg (285-295); Phosphorus 3.5 mg/dL (2.5-4.5); Potassium 3.7 mmol/L (3.5-5.1); Sodium 136 mmol/L (136-145); Total Bilirubin 0.7 mg/dL (0.15-1.2); Total Protein 5.8 g/dL (6.6-8.7)
[2021-01-30] MEDS: enoxaparin 30 mg/0.3 mL Syringe SUBCUT (07:46)
[2021-01-30] MEDS: polyethylene glycol 3350 Pkt 17 gm PO ×2 (07:46→17:57)
[2021-01-30] MEDS: pantoprazole DR 40 mg Tablet PO ×2 (07:47→17:58)
[2021-01-30] MEDS: docusate sodium 100 mg Capsule PO ×2 (07:47→17:57)
[2021-01-30] MEDS: budesonide 0.5 mg/2 mL Neb INHALATION ×2 (08:47→21:09)
[2021-01-30] MEDS: ipratropium-albuterol 3 mL Neb INHALATION ×3 (08:47→21:09)
--- NOTE | 2021-01-30 10:11 | P.PN_ITS ---
Subjective Subjective: Interval history: The patient says he is feeling better. I am now over being sick and I want something to eat because I am starving. Vitals/I&O/Wt Last Vital Signs Temp 97.4 F L 01/30/21 08:00 Pulse 88 01/30/21 08:54 Resp 20 H 01/30/21 08:49 BP 147/89 01/30/21 08:00 Pulse Ox 95 01/30/21 08:49 01/29/21 01/30/21 01/30/21 22:59 06:59 14:59 Intake Total 250 / 810 360 / 810 Output Total 260 / 1405 845 / 1405 Balance -10 / -595 -485 / -595 Physical Exam Narrative: EXAM NARRATIVE: Abdomen does not reveal much tenderness. He has a few bowel sounds today. Data : 01/30/21 05:31 01/30/21 05:31 Micro: Microbiology 01/28/21 00:15 Urine Culture - Final Urine,Voided A&P Assessment and plan (1) Ileus: The patient is doing better. I have no problem with his diet being advanced. Status: Acute Attestations Medical Necessity Statement*: See admitting service's notation. 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
--- NOTE | 2021-01-30 10:36 | PC.SOCIAL ---
IMM UPdate Page 2 of [facility] updated and signed. Placed in chart. Initialed, timed and dated.
--- NOTE | 2021-01-30 21:03 | PC.NURSE ---
i reported high reps 20 to nurse
[2021-01-30] MEDS: lactulose oral liq 20 gm/30 mL UDC 10 GM PO (21:10)
--- NOTE | 2021-01-30 21:40 | PM.PN ---
Subjective Subjective: Interval history: He is feeling little bit better today. So far no further vomiting. No bowel movement. He is not wanting to try more broth. Request for something more substantial. Discussed with him risk of recurrence of vomiting. Tried full liquid diet with crackers first. Vitals/I&O/Wt Last Vital Signs Temp 98.0 F 01/30/21 21:09 Pulse 92 01/30/21 21:16 Resp 16 01/30/21 21:09 BP 130/78 01/30/21 21:09 Pulse Ox 93 01/30/21 21:09 01/30/21 01/30/21 01/30/21 06:59 14:59 22:59 Intake Total 360 / 810 50 / 50 Output Total 845 / 1405 75 / 75 Balance -485 / -595 - Physical Exam Narrative: EXAM NARRATIVE: Extremely hard of hearing. Const: COMMON NORMALS: patient oriented x3 GENERAL APPEARANCE: not comfortable HENMT: COMMON NORMALS: oropharynx normal Neck/C-Spine: COMMON NORMALS: no JVD Resp: COMMON NORMALS: normal respiratory effort AUSCULTATION: diminished lung sounds Cardio: COMMON NORMALS: no JVD, regular rhythm, S1 normal heart sound present, S2 normal heart sound present and No murmurs present (Cardio) RHYTHM: regular rhythm HEART SOUNDS: S1 normal heart sound present and S2 normal heart sound present GI: COMMON NORMALS: Soft to palpation PALPATION: Yes Soft to palpation Extremity: COMMON NORMALS: no joint enlargement and no pedal edema Neuro: COMMON NORMALS: patient oriented x3 and moves all extremities Skin: COMMON NORMALS: no rashes or lesions noted GENERAL SKIN EXAM: no rashes or lesions noted Data : 01/30/21 05:31 01/30/21 05:31 Micro: Microbiology 01/28/21 00:15 Urine Culture - Final Urine,Voided A&P Assessment and plan (1) Vomiting: Today he is feeling a bit better. We will try to advance diet, requested for him to ambulate. Discussed with him again suppository, he states he agrees to take one currently. Initially given a dose of methylnaltrexone as well, discussed with him consideration of possible contribution of opioid to his ileus. Continue bowel regimen. Attempt to advance diet. Repeated CT scan due to persistent symptoms with signs of bowel obstruction. Status: Acute Qualifiers: Nausea presence: with nausea Vomiting type: bilious vomiting Qualified Code(s): R11.14 - Bilious vomiting (2) Acute exacerbation of chronic obstructive pulmonary disease: Breathing gradually improving, transiently weaned down to room air, although currently still requiring 2 L of oxygen. With recurrent vomiting, in addition to COPD exacerbation may have had some component of aspiration pneumonitis as well. Continue Zosyn. Hold prednisone. Patient presenting today with chief complaints of intractable nausea and dyspnea. CTA of the chest negative for any PE or consolidation. Noted known lung mass with satellite lesions which is metastatic lesion from adenocarcinoma. Per radiology report appears to have increased in size, some compression effect over the airways. Current dyspnea related to aspiration pneumonia, COPD exacerbation DuoNeb every 6 hours inhaled, budesonide every 12 hours inhaled Continue Zosyn, prednisone denies chest pain or palpitations Status: Acute (3) Aspiration pneumonia: Status: Acute (4) Compression fracture of T11 vertebra: -TLSO brace. He does sit up in bed, ambulates to the restroom. Continue pain control, intranasal calcitonin, TLSO brace. Status: Acute Additional A&P Information Hypomagnesemia: Replaced Attestations Medical Necessity Statement*: Continue admission for management of SBO/ileus with recurrent episodes of vomiting leading to worsening oxygenation. Advance diet. 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
[2021-01-30] MEDS: bisacodyl 10 mg Supp PR (22:02)
[2021-01-31] VITALS (7 sets, daily range): BP systolic 113–150; BP diastolic 77–88; PULSE 74–99; RESP 16–18; TEMP 36.6–37.2; O2SAT 90–95
[2021-01-31] MEDS: piperacillin-tazobactam 3.375 GM in sodium chloride 0.9% (plus) 50 ML IV (01:47)
[2021-01-31] MEDS: HYDROcodone-acetaminophen 5-325 mg Tablet 1 TAB PO ×2 (01:47→05:42)
[2021-01-31 06:38] LABS: Basophils # 0.1 10^3/uL (0.0-0.1); Basophils % 1.1 %; Eosinophils # 0.2 10^3/uL (0.0-0.8); Eosinophils % 2.6 %; Hematocrit 40.7 % (42.0-52.0); Hemoglobin 13.4 g/dL (11.7-16.6); Lymphocytes # 2.8 10^3/uL (0.8-4.8); Lymphocytes % 32.8 %; Mean Corpuscular HGB Conc 32.9 g/dL (30.0-36.0); Mean Corpuscular Hemoglobin 28.6 pg (28.0-34.0); Mean Corpuscular Volume 86.8 fl (80-94); Mean Platelet Volume 9.6 fL (7.4-10.4); Monocytes # 0.6 10^3/uL (0.2-0.9); Monocytes % 7.5 %; Neutrophils # 4.76 10^3/uL (1.8-7.7); Neutrophils % 55.6 %; Nucleated Red Blood Cells % 0 %; Platelet Count 239 10^3/cmm (130-400); Red Blood Count 4.69 10^6/uL (4.1-5.3); Red Cell Distribution Width 15.9 % (12.1-15.1); White Blood Count 8.5 10^3/uL (4.0-10.0)
[2021-01-31 06:54] LABS: Alanine Aminotransferase 47 U/L (0-41); Albumin Level 3.4 g/dL (3.5-5.2); Alkaline Phosphatase 113 IU/L (40-130); Anion Gap 11.7 (5-19); Aspartate Amino Transferase 25 U/L (0-40); Blood Urea Nitrogen 19 mg/dL (8-23); Calcium 9.1 mg/dL (8.5-10.5); Carbon Dioxide 26 mmol/L (22-29); Chloride 100 mmol/L (98-107); Globulin 2.2 g/dL (1.3-4.6); Glucose 94 mg/dL (65-115); Osmolality Calculated 280 mOsm/kg (285-295); Potassium 3.7 mmol/L (3.5-5.1); Sodium 134 mmol/L (136-145); Total Bilirubin 0.6 mg/dL (0.15-1.2); Total Protein 5.6 g/dL (6.6-8.7)
[2021-01-31] MEDS: ipratropium-albuterol 3 mL Neb INHALATION (09:14)
[2021-01-31] MEDS: budesonide 0.5 mg/2 mL Neb INHALATION (09:14)
[2021-01-31] MEDS: docusate sodium 100 mg Capsule PO (09:35)
[2021-01-31] MEDS: pantoprazole DR 40 mg Tablet PO (09:35)
[2021-01-31] MEDS: enoxaparin 30 mg/0.3 mL Syringe SUBCUT (09:36)
[2021-01-31] MEDS: polyethylene glycol 3350 Pkt 17 gm PO (09:36)
[2021-01-31] MEDS: calcitonin nasal 200 unit/spray 3.7 mL Btl 1 SPRAY NOSTRIL-AL (09:36)
--- NOTE | 2021-01-31 10:36 | P.PN_ITS ---
Subjective Subjective: Interval history: The patient says he had a small bowel movement and is feeling much better. He is very anxious to go home. In fact, he already has his street clothes on but is awaiting an oxygen evaluation. Vitals/I&O/Wt Last Vital Signs Temp 97.9 F 01/31/21 07:41 Pulse 99 01/31/21 09:15 Resp 18 01/31/21 09:15 BP 147/88 01/31/21 07:41 Pulse Ox 94 01/31/21 09:15 01/30/21 01/31/21 01/31/21 22:59 06:59 14:59 Intake Total 50 / 290 190 / 290 360 / 360 Output Total 120 / 195 Balance 50 / 95 70 / 95 360 / 360 Physical Exam Narrative: EXAM NARRATIVE: Abdomen is completely soft with minimal tenderness this morning. Data : 01/31/21 06:00 01/31/21 06:00 Micro: Microbiology 01/25/21 22:26 Blood Culture - Final Blood NO GROWTH AFTER 5 DAYS 01/25/21 22:20 Blood Culture - Final Blood NO GROWTH AFTER 5 DAYS 01/28/21 00:15 Urine Culture - Final Urine,Voided A&P Assessment and plan (1) Ileus: Appears to have resolved. The patient is doing well and I have no problem with him being discharged. Status: Acute Attestations Medical Necessity Statement*: See admitting service's notation. 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
--- NOTE | 2021-01-31 11:08 | PM.DCS ---
Discharge Providers Date of Admission: 01/27/21 14:05 Date of Discharge: January 31, 2021 Attending Provider at Admission: Leandra Hercules MD Attending Provider at Discharge: Georgi Bolton Primary Care Provider: MARIAMA Stanton Diagnoses at Discharge Discharge Diagnosis (1) Ileus: Status: Acute (2) Compression fracture of T11 vertebra: Status: Acute (3) Aspiration pneumonia: Status: Acute (4) Acute exacerbation of chronic obstructive pulmonary disease: Status: Acute (5) Vomiting: Status: Acute Qualifiers: Nausea presence: with nausea Vomiting type: bilious vomiting Qualified Code(s): R11.14 - Bilious vomiting Reason for Visit Reason for Visit: RESPIRATORY DISTRESS/ ABDOMINAL PAIN Hospital Course Hospital Course Pleasant 75-year-old gentleman with history of invasive adenocarcinoma of rectum, COPD, sarcoidosis, history of colon resection, likely low anterior, was admitted and treated for acute exacerbation of COPD, also has been having recurrent episodes of vomiting, and with possible aspiration pneumonitis/pneumonia. In the hospital treated with antibiotic coverage with Zosyn, breathing treatments, oxygen support, gradually weaning off oxygen, at times doing well on room air. Pulse ox evaluation will be obtained prior to discharge. He is encouraged to resume follow-up with his smoking pipe coater. It appears Anora was prescribed during the last visit, but patient does not appear to be taking any medications for his COPD. He is given a fresh prescription for this, as well as albuterol as needed. Please encourage him to maintain follow-up. With regards to recurrent vomiting, initial CT abdomen pelvis with appearance of acute mild T11 compression fracture new since 2018, no acute intra-abdominal pathology initially noted, interval/enlargement of small hiatal hernia continued prominent prostatic enlargement, rectal anastomosis noted. However, due to recurrence of vomiting, and at 1 point worsening abdominal discomfort was reassessed with CT abdomen pelvis again on 01/29 with finding of interval progression of fluid-filled small bowel loops mid to distal small bowel obstruction. No free air. Again prostate gland enlargement. Surgery consultation was obtained. Symptoms were determined to be secondary to ileus. At home he does appear to continue to follow. For his compression fracture, and was receiving morphine in the hospital. He was placed on bowel rest. Was given Relistor. Bowel regimen was intensified. Eventually symptoms improved, nausea and vomiting resolved. He had a small bowel movement last night. He is feeling much better. He is wanting to return home today. He is continued on bowel regiment at discharge. Please avoid multiple opioids and reduce opiate use if possible. For his compression fracture he is set up with TLSO brace, referred for outpatient physical therapy. Asked to continue follow-up with his orthopedic surgeon. Please follow-up with him with regards to above issues as well as prostate enlargement. Physical Exam Narrative: EXAM NARRATIVE: Extremely hard of hearing. Son at bedside. Const: COMMON NORMALS: patient oriented x3 GENERAL APPEARANCE: not comfortable HENMT: COMMON NORMALS: oropharynx normal Neck/C-Spine: COMMON NORMALS: no JVD Resp: COMMON NORMALS: normal respiratory effort and clear to auscultation bilaterally AUSCULTATION: clear to auscultation bilaterally Cardio: COMMON NORMALS: no JVD, regular rhythm, S1 normal heart sound present, S2 normal heart sound present and No murmurs present (Cardio) RHYTHM: regular rhythm HEART SOUNDS: S1 normal heart sound present and S2 normal heart sound present GI: COMMON NORMALS: Soft to palpation INSPECTION: Yes abdominal distension PALPATION: Yes Soft to palpation Extremity: COMMON NORMALS: no joint enlargement and no pedal edema Neuro: COMMON NORMALS: patient oriented x3 and moves all extremities Skin: COMMON NORMALS: no rashes or lesions noted GENERAL SKIN EXAM: no rashes or lesions noted Discharge Data Data Completed and Pending: Completed Studies During Hospitalization Category Date Time Status CT abdomen pelvis wo con [id number] Rout ine Cat Scan 01/29/21 11:[address] abdomen pelvis wo con [id number] Urge nt Cat Scan 01/25/21 23:[address] angio chest PE protcl [id number] Urge nt Cat Scan 01/25/21 21:[address] head wo con* 7 [id number] Routine Cat Scan 01/26/21 08:53 Completed XR chest 1V jean-paul ble [id number] Urgent Exams 01/25/21 21:23 [place] [id number] Routin e Ultrasound 01/26/21 08:55 Completed Pending at discharge Category Date Time Status Clostridioides Di fficile PCR Routin e Lab 01/26/21 07:19 Uncollected Complete Blood Co unt w/Auto AM [facility] Lab 02/01/21 04:00 Ordered Complete Blood Co unt w/Auto [facility] Lab 02/02/21 04:00 Ordered Comprehensive Met abolic Panel AM [facility] Lab 02/01/21 04:00 Ordered Comprehensive Met abolic Panel AM [facility] Lab 02/02/21 04:00 Ordered Labs from last 24 hours 01/31/21 01/31/21 06:00 06:00 WBC 8.5 RBC 4.69 Hgb 13.4 Hct 40.7 L MCV 86.8 MCH 28.6 MCHC 32.9 RDW 15.9 H Plt Count 239 MPV 9.6 Neut % (Auto) 55.6 Lymph % (Auto) 32.8 [place] % (Auto) 7.5 Eos % (Auto) 2.6 Baso % (Auto) 1.1 Neut # (Auto) 4.76 Lymph # (Auto) 2.8 [place] # (Auto) 0.6 Eos # (Auto) 0.2 Baso # (Auto) 0.1 Nucleated RBC % (a uto) 0 Nucleated RBCs # 0.0 Sodium 134 L Potassium 3.7 Chloride 100 Carbon Dioxide 26 Anion Gap 11.7 BUN 19 Creatinine 0.5 L GFR Calculation Not Reportable Glucose 94 Calculated Osmolal ity 280 L Calcium 9.1 Total Bilirubin 0.6 AST 25 ALT 47 H Alkaline Phosphata se 113 Total Protein 5.6 L Albumin 3.4 L Globulin 2.2 Vitals: Last Vital Signs Temp 97.9 F 01/31/21 07:41 Pulse 99 01/31/21 09:15 Resp 18 01/31/21 09:15 BP 147/88 01/31/21 07:41 Pulse Ox 94 01/31/21 09:15 Discharge Plan Discharge Patient Disposition: Home Condition: Stable Prescriptions: New polyethylene glycol 3350 17 gram Powder In Packet 17 g PO BID Qty: 60 RF: 0 lidocaine 5 % Adhesive Patch,Medicated 1 patch topical [id number] Qty: 30 RF: 0 Metamucil 0.4 gram capsule 0.4 g PO DAILY Qty: 90 RF: 0 Anoro Ellipta 62.5-25 mcg/actuation blister with device 1 inh inhalation DAILY Qty: 60 RF: 0 albuterol sulfate 90 mcg/actuation HFA aerosol inhaler 2 inh inhalation Q6H PRN (Reason: shortness of breath or wheezing) Qty: 8.5 RF: 0 Zofran 4 mg tablet 4 mg PO Q8H PRN (Reason: nausea and vomiting) 4 Days Qty: 10 RF: 0 Continued lisinopril 40 mg tablet 40 mg PO DAILY Qty: 30 RF: 4 hydrocodone-acetaminophen 5-325 mg tablet 1 - 2 tab PO .Q4-6H PRN (Reason: pain) 7 Days Qty: 40 RF: 0 omeprazole 20 mg Capsule,Delayed Release(Dr/Ec) 20 mg PO DAILY RF: 0 prednisone 20 mg tablet 20 mg PO DAILY RF: 0 Xeloda 500 mg tablet 1,000 mg PO BID RF: 0 capecitabine 150 mg tablet 300 mg PO BID RF: 0 Stiolto Respimat 2.5-2.5 mcg/actuation mist 2 puff inhalation DAILY RF: 0 Discontinued oxycodone 10 mg tablet 10 mg PO Q6H PRN (Reason: Pain) RF: 0 Discharge Orders: Discharge Order (Routine); Ordered 01/31/21 Ordered By: Georgi Bolton Other Ambulatory Orders: Physical Therapy Eval and Treat Outpatient (Order) Timeframe: 4 Days Facility: [facility] - Location: Physical Therapy Ordered By: Georgi Bolton Referrals: Jesus Manuel Miller DO [Physician] - Millicent Mejia FNP-C [Primary Care Provider] - 02/05/21 11:40 am Linda Esquivel MD [Physician] - 02/08/21 9:45 am (COPD, sarcoidosis) Paula Singh MD [Staff Physician] - (Continue usual follow-up) Discharge Diet: Advance as tolerated Discharge Activity: Resume usual activity, Increase activity as tolerated, Limit activity as instructed and As per PT/OT instructions Patient Instructions: Hydrocodone/Acetaminophen (By mouth), Albuterol (By breathing), Lidocaine (On the skin), Ondansetron (By mouth), Polyethylene Glycol 3350 (By mouth), Umeclidinium/Vilanterol (By breathing), Using Oxygen at Home (GEN), COPD (Chronic Obstructive Pulmonary Disease) (GEN), Ileus (GEN), Opioid Safety Activity Restrictions/Additional Instructions: Please follow-up with your lung doctor, Dr. Esquivel for COPD, history of sarcoidosis. Follow-up with your primary provider for reassessment of how you are improving from COPD exacerbation, pneumonia. Please discuss regarding ileus and recurrent episodes of vomiting you had had. Please continue bowel regiment, avoid constipation. Avoid opioid medications if possible. Please discuss pain medications with your primary care provider. Please do not take both hydrocodone and oxycodone, take only one of them and only as needed. Please maintain TLSO brace in place anytime you are sitting upright or standing or walking. Continue follow-up with your orthopedic surgery doctor. Discharge Attestations Time Spent in Discharge Care*: greater than 30 min Quality Metrics Clinical Quality Measures During this hospital stay, did patient experience: None Coding Level of Care Code Acute [facility] note Diagnoses Ileus K56.7 Compression fracture of T11 vertebra S22.080A Aspiration pneumonia J69.0 Acute exacerbation of chronic obstructive pulmonary disease J44.1 Vomiting R11.14 Nausea presence: with nausea Vomiting type: bilious vomiting
--- NOTE | 2021-02-04 13:32 | PC.SOCIAL ---
discharge summary faxed to [facility]. Spoke with the son and his choice was [facility].
== END 2021-01-31 12:00 | disposition home or self-care (01) | DRG 177 ==
LOC: ER 01-26 00:41 → MEDSURG 01-26 00:51
PROVIDERS: Family Medicine; Admitting Provider Student in an Organized Health Care Education/Training Program; Emergency Provider Emergency Medicine; PCP Nurse Practitioner; Visit Provider Internal Medicine
DX: J69.0 Pneumonitis due to inhalation of food and vomit (principal); J96.01 Acute respiratory failure with hypoxia; S22.080A Wedge compression fracture of T11-T12 vertebra, initial encounter for closed fracture; C20 Malignant neoplasm of rectum; C78.01 Secondary malignant neoplasm of right lung; J44.1 Chronic obstructive pulmonary disease with (acute) exacerbation; N40.1 Benign prostatic hyperplasia with lower urinary tract symptoms; C61 Malignant neoplasm of prostate; R33.8 Other retention of urine; R39.15 Urgency of urination; R35.1 Nocturia; I10 Essential (primary) hypertension; Z90.49 Acquired absence of other specified parts of digestive tract; Z79.899 Other long term (current) drug therapy; K59.00 Constipation, unspecified; X58.XXXA Exposure to other specified factors, initial encounter; Z95.828 Presence of other vascular implants and grafts; K44.9 Diaphragmatic hernia without obstruction or gangrene; Z79.52 Long term (current) use of systemic steroids; Z79.891 Long term (current) use of opiate analgesic; D86.9 Sarcoidosis, unspecified
CPT/HCPCS: 36415; 36416; 36600; 70450; 71045; 71275; 74176; 80053; 81003; 82550; 82803; 82962; 83605; 83735; 83880; 84100; 84145; 84484; 85025; 85378; 86140; 87040; 87086; 93005; 93970; 94640; 94664; 96372; 97760; G0378; J1650; J1885; J2212; J2270; J2405; J2543; J3475; J7030; J7512; J7626; L0456; Q9967

== ENCOUNTER → 2021-02-12 12:03 | Outpatient (BNVA) | payer MEDICARE, MEDICAID, SELFPAY | PROVIDERS: PCP Nurse Practitioner; Visit Provider Nurse Practitioner | DX: K59.01 Slow transit constipation (principal); C34.90 Malignant neoplasm of unspecified part of unspecified bronchus or lung; C79.9 Secondary malignant neoplasm of unspecified site; C20 Malignant neoplasm of rectum | CPT/HCPCS: 74018 ==

== ENCOUNTER → 2021-02-13 09:10 | Outpatient (BNVA) | payer MEDICARE, MEDICAID, SELFPAY | PROVIDERS: PCP Nurse Practitioner; Referring Provider Orthopaedic Surgery; Visit Provider Anesthesiology Pain Medicine | DX: S22.070A Wedge compression fracture of T9-T10 vertebra, initial encounter for closed fracture (principal); C79.9 Secondary malignant neoplasm of unspecified site; C20 Malignant neoplasm of rectum; X58.XXXA Exposure to other specified factors, initial encounter; Z79.891 Long term (current) use of opiate analgesic | CPT/HCPCS: 99205 ==

== ENCOUNTER → 2021-03-01 12:35 | Outpatient (BNVA) | payer MEDICARE, MEDICAID, SELFPAY | PROVIDERS: PCP Nurse Practitioner; Referring Provider Orthopaedic Surgery; Visit Provider Anesthesiology Pain Medicine | DX: Z20.822 Contact with and (suspected) exposure to COVID-19 (principal); S22.070A Wedge compression fracture of T9-T10 vertebra, initial encounter for closed fracture; C79.9 Secondary malignant neoplasm of unspecified site; C20 Malignant neoplasm of rectum; Z01.812 Encounter for preprocedural laboratory examination | CPT/HCPCS: 87635 ==

== ENCOUNTER 2021-03-05 06:38 | Outpatient (RCR) | payer MEDICARE, MEDICAID, SELFPAY ==
[2021-03-05 10:41] LABS: Basophils # 0.1 10^3/uL (0.0-0.1); Basophils % 0.3 %; Eosinophils % 0.3 %; Hematocrit 42.6 % (42.0-52.0); Hemoglobin 14.5 g/dL (11.7-16.6); Lymphocytes # 1.1 10^3/uL (0.8-4.8); Lymphocytes % 7.3 %; Mean Corpuscular Hemoglobin 28.9 pg (28.0-34.0); Monocytes # 0.4 10^3/uL (0.2-0.9); Monocytes % 2.5 %; Neutrophils # 13.01 10^3/uL (1.8-7.7); Neutrophils % 89.2 %; Nucleated Red Blood Cells % 0 %; Platelet Count 340 10^3/cmm (130-400); Red Blood Count 5.01 10^6/uL (4.1-5.3); Red Cell Distribution Width 15.9 % (12.1-15.1); White Blood Count 14.6 10^3/uL (4.0-10.0)
[2021-03-05 11:16] LABS: Alanine Aminotransferase 18 U/L (0-41); Alkaline Phosphatase 126 IU/L (40-130); Anion Gap 17.8 (5-19); Aspartate Amino Transferase 17 U/L (0-40); Blood Urea Nitrogen 18 mg/dL (8-23); Calcium 9.3 mg/dL (8.5-10.5); Carbon Dioxide 24 mmol/L (22-29); Chloride 96 mmol/L (98-107); Globulin 2.1 g/dL (1.3-4.6); Glucose 117 mg/dL (65-115); Osmolality Calculated 279 mOsm/kg (285-295); Potassium 4.8 mmol/L (3.5-5.1); Sodium 133 mmol/L (136-145); Total Bilirubin 0.2 mg/dL (0.15-1.2); Total Protein 6.1 g/dL (6.6-8.7)
--- NOTE | 2021-03-05 16:15 | ONC FU_ITS ---
follow up note Patient: Oswaldo Khan Unit #: [id number]: 1945 Dicatated By: Paula Singh M.D.Date of Visit:Mar 05, 2021 Onc Med Follow-up/Prog Note History of Present Illness: Mr. Khan is a 74-year-old gentleman with history of abdominal pain and rectal bleed underwent colonoscopy and was found to have a rectal mass. A biopsy was obtained and it confirmed adenocarcinoma. Mr Khan then underwent low anterior resection on 03/05/2017. The final pathology report showed invasive adenocarcinoma , tumor invades perirectal adipose and 1 out of 18 lymph nodes was positive with extranodal extension and no loss of nuclear expression of MMR protein . Mr Khan also has history of elevated PSA. On 03/12/2017 his PSA was 35.20. As per patient he has seen Dr. Sunil Martinez , urologist, who is following him and CT scan of abdomen pelvis done on 03/19/2017 showed some prominent retroperitoneal lymph nodes somewhat more prominent than in 2013 Mr Khan took combined chemoradiation for 3 days the first week but then accidentally pulled his Mc[place]ur cath and sustained urethral injury. He was evaluated by Dr. Martinez and underwent cystoscopy exam and reinsertion of Mcarthur cath, during this time combined chemoradiation therapy was on hold. He resumed 4 weeks after . Patient was advised to take Xeloda daily for 5 days per week during radiation therapy. His Xeloda daily on the days of radiation only was held for a few days due to persistent diarrhea. He concluded his chemoradiation on 11/03/2017. The diarrhea resolved at that time. Mr. Khan was advised to pursue adjuvant chemotherapy with FOLFOX. had a long discussion regarding the role of adjuvant chemotherapy. Mr Khan agreed to get Port-A-Cath placement but then at the last minute, he changed his mind. Since that time though, he has agreed to pursue the recommended adjuvant chemotherapy. He did agree to port placement. He completed 2 cycles of modified FOLFOX as of 03/04/2018. At his 03/16/2018 appointment, he stated had been having increased abdominal pain and decreased energy. He stated that he did not complete the full 2 days of the fluorouracil pump last one and this he felt like it was making me feel pretty bad . CT scan of the abdomen was done on on 03/19/2018 show stable rectosigmoid anastomosis with no recurrent or adjacent adenopathy. Moderate diffuse constipation. At the patient's request and his refusal to continue with 5-FU infusion, it was opted to change the chemotherapy plan of care to XELOX on 03/23/2018 and with the plan to give him 6 cycles. Mr. Khan had tolerated it well. 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 He completed 5/6 cycles. At his request, Adjuvant chemotherapy with Xelox concluded on 07/05/2018. CT scan of abdomen pelvis done on 09/23/2018 showed no acute findings but 1.3 cm nodule in the right lower lobe of the lung. CT PET scan done on 11/06/2018 showed enlarged prostate with diffusely increase uptake Malignant appearing right lung nodules, most likely from colonic carcinoma Malignant mediastinal lymph nodes, most likely from colonic carcinoma No evidence for local prostate metastatic nodes. Normal activity at rectal anastomosis. Mr Khan had followup in August [address] Esquivel, flight test supervisor. A bronchoscopy was obtained and Mr Khan was diagnosed with sarcoidosis. This was treated with some success but follow-up CT scan of chest done on August 30, 2019 showed evidence of interval progression of disease with bilateral pulmonary nodules. The largest nodule in the right lower lobe posteriorly and right suprahilar with narrowing of right upper lobe bronchus and numerous additional new and progressive pulmonary nodules throughout both lungs right hilar lymphadenopathy. The patient underwent bronchoscopy and endobronchial ultrasound-guided transbronchial needle aspiration of station 11 R, showed significant macrophages and histiocytes but no malignancy. but there was a concern about possibility of malignancy so patient underwent second bronchoscopy on October 28, 2019 which showed a fungating mass was seen at the orifice of right upper lobe bronchus with complete occlusion of airways. The right middle lobe and right lower lobe bronchi were examined up to third subsegmental with no abnormality. Biopsy was obtained came back positive for metastatic colorectal adenocarcinoma as immunohistochemistry stain were positive for CK20 and CDX2. Mr Khan was started on systemic chemotherapy with a Avastin/FOLFIRI on November 16, 2019. Next generation/gene sequencing was ordered and on December 19, 2019, it reported HER-2/peggy negative and says it was not possible to calculate tumor mutational burden and MSI/MMR for the sample because the sequencing data did not reach the minimum depth of coverage required to provide a result on these biomarkers. Follow-up PET/CT from 02/18/2020 reports pulmonary nodules seen on the prior study were improved on the 02/18/2020 study. The index nodule in the right lower lobe that previously measured 2.7 x 1.8 cm with an SUV of 5.5 now measures 1.4 cm with an SUV of 3.2. The other right upper and left lung nodules are similarly improved. Increasing activity is present in the multiple FDG positive mediastinal nodes; as before, these are most consistent with sarcoidosis. These nodules are distributed in the right paratracheal, inferior right perihilar, subcarinal, prevascular and right hilar territories. The previously described right. Rectal node is unchanged in size but has an SUV of 4.2 up from 2.3 previously and consistent with recurrence. Rectal activity is prominent but is most likely physiologic. At that time, his last treatment was on 02/27/2020. As treatment had been on hold due to elevated blood pressure his blood pressure has been 195/110 last visit and is 189/104 despite increasing his lisinopril to 10 mg daily.Continued with amlodipine 5 mg p.o. daily He was also complaining of sigificant headaches, so an MRI scan of the brain was ordered to rule out brain mets. The MRI was done on April 03, 2020 and showed no evidence of metastatic disease to brain and no other acute abnormality seen. Mr Khan has been noncompliant with his chemotherapy as he has skipped many scheduled chemotherapy treatments in the past. An example of his most recent noncompliance; his chemo was given on February 27, 2020 and he did return to the office until April 13, 2020, at that time he was scheduled for chemotherapy on April 16, 2020, but patient did not come. He did eventually resume chemotherapy on April 30, 2020. His last chemotherapy prior to April 30, 2020 was February 27, 2020. His last chemotherapy since April 30, 2020 was on May 28, 2020. He has missed his appointment for several reasons on his part such as just did not feel like coming???sick at stomach , he did realize he was getting chemotherapy that day and had not planned accordingly, etc. For his visit today his last chemotherapy was given on May 28, 2020. His last chemotherapy with 5-FU irinotecan and Avastin was given on May 28, 2020. He has had cardiac work-up with [facility]. He has had a stress test that is negative for cardiac disease. Follow-up CT PET scan done on July 28, 2020 showed the lateral right lower lobe nodule demonstrated ongoing positive response to therapy, now subcentimeter in size, with minimal FDG activity. The extensive mediastinal adenopathy seen previously now minimally FDG positive, with exception of the right hilar node which is now has an SUV of 6, down from 13.6 previously. The right perirectal node has SUV of 3.4 and is unchanged in size, indicating stable disease. No new lesion seen. He has had persistent frontal headaches. He was given oral antibiotic for presumed sinusitis with that his headaches did improve. Mr. Khan had a MRI of the brain with and without contrast on 04/05/2020 which reported no evidence of any intracranial enhancements or metastatic disease. There was mild small vessel changes and moderate parenchymal volume loss but no restricted diffusion to suggest acute ischemia. He has had persistent headaches and some concern that this could have been due to the palonosetron given his premedications. However since he started just Avastin and Xeloda August 22, 2020, his headaches have persisted. He is also complaining of progressive shortness of breath, but it is noted that he reports that he isstill smoking about pack a day. Mr Khan has not been too keen to continue systemic chemotherapy as he has just started feeling better-gradually since his full last chemotherapy dose was last given on May 28, 2020., Follow-up CT PET scan done on November 24, 2020 shows stable bilateral pulmonary nodules, remain subcentimeter in size with minimal FDG activity. No significant change in right hilar node. Minimal progression of right perirectal node which is slightly prominent with SUV of 4.5, a new T6 compression fracture, Subsequently , patient underwent MRI scan of thoracic spine on December 18, 2020 which shows wedge-shaped compression fractures are acute to subacute and diffuse increased signal throughout T7 and T8 vertebral body with very minimal extension into posterior elements. Approximately 40% compression deformity without retropulsion. No enhancement or associated soft tissue mass seen. c/o persistent mid back pain with no radiation to lower extremity, urine no urine or stool incontinence, patient underwent MRI scan of thoracic spine on December 18, 2020 which shows wedge-shaped compression fractures are acute to subacute and diffuse increased signal throughout T7 and T8 vertebral body with very minimal extension into posterior elements. Approximately 40% compression deformity without retropulsion. No enhancement or associated soft tissue mass seen. Patient was referred to orthopedics but as per orthopedic office patient was no-show but patient said he did not get any call from orthopedics office. We will reschedule him for treatment Came for follow-up, complaining of persistent mid back pain, now with T10 compression fracture, kyphoplasty is scheduled for coming . Denies any lower extremity numbness/weakness, denies any urine or stool incontinence, denies any fever chills, denies any hemoptysis hematemesis, denies any jaundice or abdominal pain denies any headaches or blurred vision., As per patient since his last visit in December 2020 he went to hospital with COPD exacerbation/pneumonia and then with chronic/acute mid back pain and underwent CT angiogram in January 2021 which showed no embolism but enlarging right hilar lymphadenopathy and also several new lung nodules. Last treatment with Avastin/Xeloda was given on December 31, 2020 Medications: DULoxetine HCl 1 Capsule (of 20 mg) Capsule Delayed Release Particles Oral daily, Flomax 1 Tablet (of 0.4 mg) Capsule Oral daily, HYDROcodone-Acetaminophen 1 - 2 Tablet (of 10-325 mg) Oral q 4 hours PRN, Ibuprofen 3 Tablet (of 200 mg) Oral daily PRN, Lisinopril (40 mg) Tablet Oral daily, predniSONE 1 Tablet (of 20 mg) Oral daily, Xeloda 2 Tablet (of 500 mg) Oral b.i.d., Xeloda 2 Tablet (of 150 mg) Oral b.i.d. Allergies: No Known Allergies. Review of Systems: Review of Systems is not available for this patient. Vital Signs: Performed on Mar 05, 2021 15:14 Height - 70.00 in Weight - 164.2 lbs (LOW) BSA - 1.92 sq.m BMI - 23.56 Temperature - 97.9 F (LOW) Pulse - 118 /min (HIGH) Respiration - 20 /min BP - 125/76 mm(hg) O2 Sat - 92 % (LOW) Pain - 4 Fatigue - 9 Performance Status: 1 - No physically strenuous activity, but ambulatory and able to carry out light or sedentary work (e.g. office work, light house work). (ECOG) Physical Examination: ENMT - No mouth sores, no thrush, no jaundice, Respiratory - Poor air entry otherwise clear, Cardiovascular - Regular rate and rhythm of heart, Abdomen - Soft, bowel sounds present, Extremities - No visible edema. Lab/Imaging: Test performed on Sep 12, 2020 09:34 Sodium 134 mmol/L Potassium 4.2 mmol/L Chloride 97 mmol/L CO2 27 mmol/L Anion Gap 14.2 BUN 23 mg/dL Creatinine 0.9 mg/dL Cr Clearance (Est) 90.7300 mL/min Glucose 155 mg/dL Osmolality - Calculated 285 mOsm/kg Calcium 9.5 mg/dL Protein, Total 6.9 g/dL Albumin 4.1 g/dL Globulin 2.8 g/dL Bilirubin, Total 0.3 mg/dL ALT (SGPT) 23 U/L AST (SGOT) 18 U/L Alkaline Phosphatase 83 IU/L WBC 8.3 10 3/uL RBC 5.05 10 6/uL HGB 13.5 g/dL HCT 41.4 % MCV 82.0 fL MCH 26.7 pg MCHC 32.6 g/dL RDW 16.6 % Platelet Count 264 10 3/cmm MPV 9.4 fL Neutrophils 6.90 10 3/uL Lymphocytes 0.9 10 3/uL Monocytes 0.3 10 3/uL Eosinophils 0.1 10 3/uL Basophils 0.1 10 3/uL Neutrophil % 83.5 % Lymphocyte % 11.0 % Monocyte % 3.6 % Eosinophil % 0.6 % Basophils % 1.1 % NRBC % 0 % CEA 3.2 ng/mL Test performed on Sep 12, 2020 09:25 Ua Color Yellow Ua Appearance Clear Ua Glucose Norm Ua Bilirubin Neg Ua Ketones Negative Ua Specific [place] 1.015 Ua Blood Neg Ua pH 6 Ua Protein Neg Ua Urobilinogen 1 mg/dL Ua Nitrites Negative Ua Leukocyte Esterase Negative Impression: Invasive adenocarcinoma of upper rectum status post APR on 03/05/2017 final pathology showed tumor size 5.5 x 5.4 cm low-grade, tumor invades perirectal adipose p T3, lymphovascular invasion present, no perineural invasion seen 1 out of 18 positive lymph nodes N1a , extranodal extension present N1 stage IIIA No loss of nuclear expression of MMR protein Elevated PSA, on 03/12/2017 it was 35.20 with prostate enlargement, being followed by Dr. Martinez. s/p chemoradiation with Xeloda as chemosensitizer. till 11/03/17 discussed with patient regarding the role of adjuvant chemotherapy in stage IIIa rectal cancer, as literature has shown adjuvant chemotherapy improves disease-free survival. Patient has been reluctant to consider chemotherapy because of severe diarrhea during chemoradiation for rectal CA. He was assured that we will adjust/modify his adjuvant chemotherapy to make it tolerable. Patient, now agreed to get port placement and for adjuvant chemotherapy modified FOLFOX every 2 weeks ???12. All the side effect and possible benefits were discussed in detail again and patient expressed understanding. Mr Khan agreed. He was referred back to Dr. Merritt for Port-A-Cath placement and began his first cycle of FOLFOX on 02/09/2018 .Patient developed abdominal pain for which he underwent CT scan of abdomen on 03/19/2018 showed moderate constipation, and stable rectosigmoid anastomosis with no recurrent mass or adjacent adenopathy and bilateral lower lobe pulmonary nodules are stable since 02/03/2017. No evidence of metastatic disease elsewhere. Following day patient had large bowel movement and since then no more abdominal pain. Patient expressed intolerance to 5-FU infusion chemotherapy and also consider it inconvenient so requesting Xeloda pills instead of 5-FU infusion. His treatment plan was changed to XELOX beginning 03/23/2018. He has tolerated it well thus far. He completed 5 of the planned [address] PET scan done on 11/06/2018 showed prostate is enlarged, measuring 6 cm in diameter with diffusely increased FDG activity, most intense in the central prostate. Normal tracer activity at the rectal anastomosis There are 2 pulmonary nodules in the right lower lobe and one in the right upper lobe, the index nodule in the right lower lobe measuring 1.1 x 1.6 cm with SUV of 3.5. Most consistent with metastatic disease, likely from colonic primary. Multiple hypermetabolic mediastinal lymph nodes are present, consistent with metastatic disease, in the inferior right perihilar 1.9 cm, 5.2 SUV. Subcarinal, prevascular, right paratracheal, 1.9 cm, 6.8 SUV. Right hilar territories. Subcentimeter nodes are also noted in the superior right paratracheal region. Too small to characterize. Mr. Khan had established care with Dr. Esquivel in pulmonology. A bronchoscopy was performed and he was found to have sarcoidosis which was treated with some success however a follow-up CT of the chest done on August 29, 2019 showed interval progression of disease with bilateral pulmonary nodules with the largest nodule in the right lower lobe posteriorly. There was activity in the right suprahilar with narrowing of the right upper lobe bronchus and numerous additional new and progressive pulmonary nodules throughout both lungs. There was right hilar lymphadenopathy. He underwent another bronchoscopy and endobronchial ultrasound-guided transbronchial needle aspiration of station 11 R. This showed significant macrophages and histiocytes but no malignancy. However given his history there was concern about the possibility of malignancy therefore he underwent a second bronchoscopy on October 28, 2019. This did show a fungating mass at the orifice of the right upper lobe bronchus with complete occlusion of both airways. The right middle lobe and right lower lobe bronchi were examined up to a third subsegmental with no abnormality. A biopsy was obtained and did report positive for metastatic colorectal adenocarcinoma. Immunohistochemistry stains were positive for CK20 and CDX2. Mr. Khan was advised to pursue pallitave chemotherapy with FOLFOX Avastin. He began his first dose on November 16, 2019. Follow-up PET/CT from 02/18/2020 reports pulmonary nodules seen on the prior study were improved on the 02/18/2020 study. The index nodule in the right lower lobe that previously measured 2.7 x 1.8 cm with an SUV of 5.5 now measures 1.4 cm with an SUV of 3.2. The other right upper and left lung nodules are similarly improved. Increasing activity is present in the multiple FDG positive mediastinal nodes; as before, these are most consistent with sarcoidosis. These nodules are distributed in the right paratracheal, inferior right perihilar, subcarinal, prevascular and right hilar territories. The previously described right. Rectal node is unchanged in size but has an SUV of 4.2 up from 2.3 previously and consistent with recurrence. Rectal activity is prominent but is most likely physiologic. patient resumed his systemic chemotherapy on April 30, 2020 and received next dose on May 28, 2020 and then after that did not take further treatment due to 1 or other reasons subsequently underwent follow-up CT PET scan on May 30, 2020 which shows improvement in the right lower lobe pulmonary nodule. Improvement on the resolution of uptake in mediastinal lymph nodes. Stable FDG positive right perirectal node. Patient declined to continue current systemic therapy with Avastin/FOLFIRI but agreed to take oral Xeloda/Avastin so, at patient's request, his Avastin/FOLFIRI, was discontinued after last dose given on May 28, 2020 and he was switched to oral Xeloda 625 mg per metered squared twice daily day 1 through 14 along with Avastin 7.5 mg/kg on day 1 and then repeat cycle every 3 weeks on 08/22/2020. Follow-up CT PET scan done on November 24, 2020 shows tiny, bilateral pulmonary nodules seen previously are unchanged on current study. Right hilar lymph node is stable with SUV of 7,. No significant increase from 6 on previous study. The right perirectal node is slightly more prominent on the current study with SUV of 4.5 consistent with mild progression and a new T6 vertebral body compression fracture Plan: Discussed with patient regarding his labs white blood count 14.6 hematocrit 42.6 hemoglobin 14.5 g platelets 340,000 CMP within normal limit except sodium 133 Clinically, patient is doing reasonably well but in mild to moderate distress due to mid back pain due to T10 compression fracture for which kyphoplasty is scheduled for coming ., Will request surgery to obtain T10 vertebral biopsy., Last chemotherapy with oral Xeloda/Avastin was given on December 31, 2020, as patient is scheduled for T10 kyphoplasty, will continue to hold his treatment as it may interfere with his healing or increase risk for bleeding. As, his CTA chest done in January 2021 showed increased right hilar lymphadenopathy and new pulmonary nodules, there is a possibility he may have disease progression or could be inflammatory. At this point, will consider follow-up CT PET scan in 2 weeks and if it shows disease progression, then we may change his palliative therapy otherwise we will resume Avastin/Xeloda. Patient will return to clinic in 2 weeks with follow-up CT PET scan for further discussion and evaluation Signed By: Paula Singh M.D. <<Signature on File>>
== END 2021-03-05 23:59 | disposition home or self-care (01) ==
LOC: ONCMED 06:38
PROVIDERS: Internal Medicine Hematology & Oncology; PCP Nurse Practitioner; Visit Provider Nurse Practitioner
DX: C20 Malignant neoplasm of rectum (principal); R97.20 Elevated prostate specific antigen [PSA]; R91.1 Solitary pulmonary nodule; R59.0 Localized enlarged lymph nodes; Z79.899 Other long term (current) drug therapy; Z92.21 Personal history of antineoplastic chemotherapy; Z92.3 Personal history of irradiation
CPT/HCPCS: 36415; 80053; 84153; 85025; 99214

== ENCOUNTER 2021-03-07 05:48 | Day surgery (SDC) | payer MEDICARE, MEDICAID, SELFPAY ==
[2021-03-06 14:12] VITALS: BMI 23.5
[2021-03-07] VITALS (8 sets, daily range): BP systolic 97–122; BP diastolic 65–80; PULSE 90–114; RESP 15–20; TEMP 36.6–37.2; O2SAT 90–94
--- NOTE | 2021-03-07 | SC_ITS ---
WS: [id number] INTRAOPERATIVE TECHNIQUE: 9 Spot fluoroscopic images for intraoperative purposes. FLUOROSCOPY TIME: 5.3 seconds CLINICAL INFORMATION: kyphoplasty COMPARISON: None. FINDINGS: Intraoperative images for kyphoplasty. Methylmethacrylate demonstrated in the T11 vertebral body. Eunice or methylmethacrylate administration at T7, T8, T9, SC/C-arm FL for Kyphoplasty IMPRESSION: Images obtained for intraoperative purposes.
--- NOTE | 2021-03-07 | SCC_ITS ---
PROCEDURE: 1. T10 Kyphoplasty with biopsy. 184.1 seconds of fluoroscopic guidance, for a cumulative dose of 102.87 mGy, was provided to Dr. Miller by the radiology department. C-arm images of the thoracic spine were saved for the patient's permanent record. [facility]
[2021-03-07] MEDS: sodium chloride 0.9% 1,000 ML 30 ML IV (06:38)
--- NOTE | 2021-03-07 07:01 | P.ANESASSM_ITS ---
Pre-Anesthetic Assessment Pre-Anesthetic Assessment: Height/Weight: Height 1.78 m Weight 74.389 kg Temp Pulse Resp BP Pulse Ox 98 F 114 H 20 H 122/80 94 03/07/21 06:22 03/07/21 06:22 03/07/21 06:22 03/07/21 06:22 03/07/21 06:22 Preop Diagnosis: Thoracic compression fracture T7,8,9 Proposed Procedure: Operation Date: 03/07/21 07:00 Proposed Procedures p T10 Kyphoplasty w/ Bone [id number] S22.070A(Not Applicable) - Damion Bass MD Was Beta Charis taken within 24 hours: N/A Was Clonidine taken within 24 hours: N/A Last intake: Intake Last Liquid Date 03/06/21 Last Liquid Time 23:00 Last Solid Date 03/06/21 Last Solid Time 22:00 Social: Social History: Tobacco and No alcohol Exam: Pre-Anes Outpt Exam: alert, oriented x 3 and regular rate & rhythm Additional Exam Findings (including area of procedure): Course wet lung sounds b/l Pulmonary: Pulmonary: COPD Comments: Lung cancer CV/HEM: Comments: CONCLUSIONS LV systolic function is normal with EF of 55-60% Grade 1 diastolic dysfunction No significant valvular heart disease is noted Aortic root is dilated No comparison studies are available : Comments: BPH GI: Comments: Constipation, no BM since Thursday Musc/skel: Musc/skel: Lower Back Pain Comments: Chronic back pain Neuropsych: Neuropsych: Anxiety Anesthetic Plan: ASA status: 3 Anesthesia: Anesthesia Evaluation Risk of > 500 ml blood loss (7ml/kg in children): No Meds/Allergies Current Medications: Current Medications Generic Name Dose Route Start Last Admin Trade Name Freq PRN Reason Stop Dose Admin Sodium Chloride 1,000 mls @ 30 ml s/hr 03/07/21 06:00 03/07/21 06:38 Sodium Chloride 0.9% IV 03/08/21 05:59 30 mls/hr .Q24H MARTÍNEZ Administration PFSH Anesthesia PFSH: Medical History Aspiration pneumonia BPH loc w urin obs/LUTS Elevated PSA Essential (primary) hypertension H/O colon cancer, stage III Lung cancer Myalgia Nocturia Prostate CA Urinary retention Urinary urgency Surgical History History of liver biopsy / Percutaneous abscess drainage Port-A-Cath in place S/P colon resection 2016 ([facility]) -- sigmoid resection for colon cancer / cholecystectomy / incidental appendectomy / umbilical hernia repair Family History Mother , 62 CAD (coronary artery disease) Diabetes Father , 74 Cancer Colon Social History Quit status (tobacco): has tried quititng Second hand smoke exposure: Yes Smoking risk assessment/counseling performed?: No Alcohol intake: never Desire information about alcohol rehabilitation?: No Counseling given: No Desire information about substance/drug rehabilitation?: No Counseling given: No Adopted: No Caregiver/support person: No Lives independently: Yes Household members: none Housing: House Marital status: Current occupational status: retired History of recent travel: No Current gender identity: Male Data Anesthesia Cardiac Studies: No Data to Display
[2021-03-07] MEDS: iohexol 300 mg/mL 50 mL Btl (OR ONLY) XX (07:53)
--- NOTE | 2021-03-07 08:20 | P.PCN_ITS ---
PACU note PACU note: VSS, Good respiratory effort, report to DUBBING MACHINE OPERATOR Post-Anesthesia Exam: awake
--- NOTE | 2021-03-07 08:20 | PM.PACU ---
PACU note PACU note: VSS, Good respiratory effort, report to EDGER SAW OPERATOR Post-Anesthesia Exam: awake
[2021-03-07] MEDS: oxyCODONE-APAP 10-325 mg Tablet 1 TAB PO (10:30)
--- NOTE | 2021-03-07 12:45 | SUR.PHASEII ---
0829 pt received from pacu and drowsy, refusing any drink or needs at present,oxygen 2l-nc in use 0900 remains asleep and refusing to move at all in stretcher [address] linda's office regarding home o2 that pt states never got ordered via patient,lorene with dr linda's office stated that he would need to the dr ryan to order since he isn't in his care,would also need o2 sat while up ambulating and with and without oxygen before getting set-up for oxygen at home,also need insurance to authorize before getting oxygen 1000 pt states he needs to void and refusing to get up due to pain in his back,voided per urinal without any problems 1100 attempting to wean pt off oxygen and o2 sat down to 88% on 1l-nc [address] alvarez's office and message left with nurse morris alvarez(office staff) 1220 pt finally agrees to get up and sit on side of bed,02 on room air 91%, up to bathroom without any difficulty 1235 friend Iglesia Bhandarires here and informed of everything that took place as above stated and verbalized understanding,instructed to go to ER if needed and verbalized instructions
--- NOTE | 2021-03-07 12:52 | PM.OP ---
Operative Report Date of procedure: March 07, 2021 . PREOPERATIVE DIAGNOSIS: T12 vertebral compression fracture POSTOPERATIVE DIAGNOSIS: Same PROCEDURE: 1. T10 Kyphoplasty with biopsy. 2. Fluoroscopic Guidance of the above SURGEON: Damion Bass M.D. ANESTHESIA: Local Anesthesia PROCEDURE IN DETAIL: Informed consent was obtained, explaining risks, benefits, and alternatives of the procedure to the patient. Operative site was marked in the holding area. The patient was then taken to the procedure room and placed in the prone position on the procedure table. The back and buttocks were prepped with ChloraPrep solution and a sterile drape was applied. A time-out was performed to verify the correct patient, procedure, and location. Using fluoroscopy, the spine was examined. The (T10) level was verified in AP and lateral views. I planned a bilateral transpedicular approach. A skin wheal was raised and the subcutaneous tissues anesthetized with 1% lidocaine approximately 5ml on the right side. A small stab incision was made with a #15 blade. The introducer cannula was advanced to dock with the pedicle in an AP view. It was advanced through the pedicle using a mallet in both AP and lateral views, taking care not to traverse the medial aspect of the pedicle in the AP view until the tip was into the vertebral body. The cannula was advanced to the posterior third of the body in a lateral view. A biopsy probe was advanced using manual force to the anterior third of the body and withdrawn. This was sent to the pathologist. Next The manual drill was used to then create space into which deploy the balloon. Balloon was then placed and inflated. Position in AP and lateral views was optimal. Next a skin wheal was raised and the subcutaneous tissues anesthetized with 1% lidocaine approximately 5ml on the left side. A small stab incision was made with a #15 blade. The introducer cannula was advanced to dock with the pedicle in an AP view. It was advanced through the pedicle using a mallet in both AP and lateral views, taking care not to traverse the medial aspect of the pedicle in the AP view until the tip was into the vertebral body. The cannula was advanced to the posterior third of the body in a lateral view. The manual drill was used to then create space into which deploy the balloon. Balloon was then placed and inflated. Position in AP and lateral views was optimal. Next I placed coaxial 15mm balloon creating a cavity for the cement. Balloons were removed and I placed barium impregnated PMMA cement under direct fluoroscopic visualization ruling out extravasation or vascular uptake. There was good interdigitization and filling of the vertebral body. The cannulas were removed making sure not to withdraw any cement. 3-0 nylon was used to close the minimal incision and sterile dressing was applied. The patient tolerated the procedure well with no apparent complications. IMPRESSION: successful kyphoplasty of T10 vertebral body. Pre-op Diagnosis: Thoracic compression fracture T7,8,9
--- NOTE | 2021-03-07 13:06 | PM.PACU ---
PACU note Post-Anesthesia Exam: awake and vital signs stable Disposition: discharged
--- NOTE | 2021-03-07 13:10 | ANE.PACU2 ---
Inpatient post-anesthesia follow up: Vital signs: Temperature 98.1 F Pulse Rate 95 Respiratory Rate 15 Blood Pressure 104/66 Pulse Oximetry 92 Oxygen Delivery Me thod Nasal Cannula Oxygen Flow Rate 2.0 Fraction of Inspir ed Oxygen Hydration adequate: Yes Nausea and vomiting: No Pain level: Baseline pain level Mental status: Baseline Additional Comments: Patient discharged to home on RA with sats of 91%
--- NOTE | 2021-03-14 13:53 | W.PM.OPSUD ---
Surgery/Procedure H&P Update DATE OF PROCEDURE: March 07, 2021 Increase in pain. Schedule MRI. BOne marrow biopsy at cardiologys request. DATE H&P PERFORMED: 02/13/21 PREOP DIAGNOSIS: Thoracic compression fracture T7,8,9 PLANNED PROCEDURE: Operation Date: 03/07/21 07:00 Proposed Procedures p T10 Kyphoplasty w/ Bone [id number](Not Applicable) - Damion Bass MD
== END 2021-03-07 12:35 | disposition home or self-care (01) ==
PROVIDERS: Anesthesiology Pain Medicine; PCP Nurse Practitioner; Visit Provider Orthopaedic Surgery
DX: S22.080A Wedge compression fracture of T11-T12 vertebra, initial encounter for closed fracture (principal); X58.XXXA Exposure to other specified factors, initial encounter; N40.1 Benign prostatic hyperplasia with lower urinary tract symptoms; N13.8 Other obstructive and reflux uropathy; I10 Essential (primary) hypertension; Z85.038 Personal history of other malignant neoplasm of large intestine; Z85.46 Personal history of malignant neoplasm of prostate; Z85.118 Personal history of other malignant neoplasm of bronchus and lung; F17.210 Nicotine dependence, cigarettes, uncomplicated; Z82.49 Family history of ischemic heart disease and other diseases of the circulatory system; Z83.3 Family history of diabetes mellitus; Z80.0 Family history of malignant neoplasm of digestive organs; J44.9 Chronic obstructive pulmonary disease, unspecified
CPT/HCPCS: 22513; 76000; 87070; 87176; 87205; J0690; J2250; J2370; J2704; J3010; J3490; J7030

== ENCOUNTER 2021-03-14 11:38 | Inpatient (IN) | payer MEDICARE, MEDICAID, SELFPAY ==
[2021-03-14] VITALS (14 sets, daily range): BP systolic 100–123; BP diastolic 65–83; PULSE 98–120; RESP 17–24; TEMP 36.3–36.9; O2SAT 93–99; BMI 25.8
--- NOTE | 2021-03-14 11:41 | W.ED.GENADLT ---
HPI - General Adult General: Chief complaint: Nausea/Vomiting/Diarrhea Stated complaint: N/V/ BACK PAIN/ DIFFICULTY BREATHING Time Seen by Provider: 03/14/21 11:40 History of Present Illness: HPI narrative: Mr. Khan is a 75-year-old gentleman with complex past medical history including cancer and recent surgery for kyphoplasty for compression fracture who presents to the emergency department due to nausea and vomiting. He reports he was doing fairly well postoperatively however developed nausea, vomiting, and increased pain yesterday. He attributes nausea and vomiting primarily to having decreased p.o. intake. This has limited his taking his pain medication. This was improved with Zofran given by EMS. The patient is now requiring 2 L of oxygen which is not baseline for him. He does endorse mildly increased cough. Overall the course of symptoms has been worsening. He otherwise denies changes to health, specific exacerbating relieving factors. Review of Systems General: Reports: 10 or more systems reviewed and unremarkable except in HPI and below PFSH ED PFSH: Medical History Aspiration pneumonia BPH loc w urin obs/LUTS Elevated PSA Essential (primary) hypertension H/O colon cancer, stage III Lung cancer Myalgia Nocturia Prostate CA Urinary retention Urinary urgency Surgical History History of liver biopsy / Percutaneous abscess drainage Port-A-Cath in place S/P colon resection 2016 ([place]) -- sigmoid resection for colon cancer / cholecystectomy / incidental appendectomy / umbilical hernia repair Family History Mother , 62 CAD (coronary artery disease) Diabetes Father , 74 Cancer Colon Social History Quit status (tobacco): has tried quititng Second hand smoke exposure: Yes Smoking risk assessment/counseling performed?: No Alcohol intake: never Desire information about alcohol rehabilitation?: No Counseling given: No Desire information about substance/drug rehabilitation?: No Counseling given: No Adopted: No Caregiver/support person: No Lives independently: Yes Household members: none Housing: House Marital status: Current occupational status: retired History of recent travel: No Current gender identity: Male Physical Exam Narrative: EXAM NARRATIVE: GENERAL/CONSTITUTIONAL -chronically ill-appearing. Mild increased respiratory effort supplemental oxygen in place. Eyes - PERRL, no conjunctival injection ENMT - Atraumatic external nose and ears. Moist mucous membranes NECK - supple. trachea midline CARDIOVASCULAR -tachycardic rate and regular rhythm. Peripheral pulses 2+ and equal RESPIRATORY -coarse to auscultation bilaterally with transmitted upper airway noises, rhonchi. New oxygen requirement. Mild increased work of breathing. ABDOMEN/GI - mild generalized tenderness/Nondistended. MSK - Extremities without obvious deformity or tenderness to palpation. Operative incisions appear well healing, clean, dry, intact SKIN - Warm, Dry NEURO - alert and appropriately oriented. Moves all extremities equally. Very hard of hearing Course ED course: - Patient was seen and evaluated by me at bedside - Patient placed on cardiac monitors, IV access obtained - Initial evaluation notable for exam as noted above -Symptom treatment ordered - Labs notable for no leukocytosis. Metabolic panel with mild evidence of likely dehydration, similar to prior with chronic hyponatremia. Delta troponin negative. CRP is elevated. - Imaging notable for fairly unimpressive chest x-ray given degree of respiratory symptoms. Therefore, additional imaging felt warranted. CT imaging notable for subsegmental bilateral pulmonary emboli. Though radiology notes that these could be clinically insignificant I do not have another explanation for the patient's new oxygen requirement, and respiratory symptoms. Discussed case with the office of performing surgeon, no contraindication for anticoagulation. - Upon serial reexamination after treatment the patient was similar to mildly improved - Based on patient history, evaluation, labs, and imaging as interpreted the most likely cause of the patient's condition is pulmonary emboli and nausea and vomiting in the postoperative state - The results of ED evaluation were discussed with the patient including plan for admission due to requirement for level of care not available if discharged to prevent significant worsening/deterioration. -Hospitalist service contacted and agreed admit the patient - Patient was admitted without further deterioration or significant events. Vital Signs: Vital signs: Vital Signs Temperature 98.6 F 03/19/21 17:51 Pulse Rate 93 03/19/21 17:51 Respiratory Rate 18 03/19/21 17:51 Blood Pressure 137/86 03/19/21 17:51 Pulse Oximetry 97 03/19/21 17:51 MDM - General Adult Medical Records: Attestation: I reviewed the patient's medical records. Lab Data: Attestation: I reviewed the patient's lab results. Labs: Lab Results 03/14/21 03/14/21 03/14/21 12:30 12:30 12:30 WBC 9.8 10^3/uL 10^3/ uL (4.0-10.0) RBC 4.91 10^6/uL 10^6 /uL (4.1-5.3) Hgb 13.8 g/dL g/dL (11.7-16.6) Hct 41.8 % L % (42.0-52.0) MCV 85.1 fl fl (80-94) MCH 28.1 pg pg (28.0-34.0) MCHC 33.0 g/dL g/dL (30.0-36.0) RDW 15.8 % H % (12.1-15.1) Plt Count 279 10^3/cmm 10^3 /cmm (130-400) MPV 9.1 fL fL (7.4-10.4) Neut % (Auto) 69.7 % % Lymph % (Auto) 21.4 % % [place] % (Auto) 7.6 % % Eos % (Auto) 0.4 % % Baso % (Auto) 0.6 % % Neut # (Auto) 6.85 10^3/uL 10^3 /uL (1.8-7.7) Lymph # (Auto) 2.1 10^3/uL 10^3/ uL (0.8-4.8) Greenlee # (Auto) 0.8 10^3/uL 10^3/ uL (0.2-0.9) Eos # (Auto) 0.0 10^3/uL 10^3/ uL (0.0-0.8) Baso # (Auto) 0.1 10^3/uL 10^3/ uL (0.0-0.1) Nucleated RBC % (a uto) 0 % % Nucleated RBCs # 0.0 /100WBC /100W BC Sodium 133 mmol/L L mmol /L (136-145) Potassium 4.4 mmol/L mmol/L (3.5-5.1) Chloride 96 mmol/L L mmol/ L (98-107) Carbon Dioxide 22 mmol/L mmol/L (22-29) Anion Gap 19.4 H (5-19) BUN 14 mg/dL mg/dL (8-23) Creatinine 0.6 mg/dL L mg/dL (0.7-1.2) GFR Calculation Not Reportable Glucose 103 mg/dL mg/dL (65-115) Calculated Osmolal ity 277 mOsm/kg L mOs m/kg (285-295) Lactate 0.8 mmol/L mmol/L (0.5-2.2) Calcium 8.9 mg/dL mg/dL (8.5-10.5) Magnesium 1.5 mg/dL L mg/dL (1.7-2.3) Total Bilirubin 0.4 mg/dL mg/dL (0.15-1.2) AST 12 U/L U/L (0-40) ALT 11 U/L U/L (0-41) Alkaline Phosphata se 135 IU/L H IU/L (40-130) Troponin T Baselin e Troponin T 120 Min [place] Troponin T C-Reactive Protein 24.6 mg/L H mg/L (0.0-4.9) NT-Pro-B Natriuret Pep 50 pg/mL pg/mL (0-125) Total Protein 5.9 g/dL L g/dL (6.6-8.7) Albumin 3.4 g/dL L g/dL (3.5-5.2) Globulin 2.5 g/dL g/dL (1.3-4.6) Procalcitonin 0.05 ng/mL ng/mL (0-0.5) TSH 0.69 uIU/mL uIU/m L (0.27-4.20) Urine Color Urine Appearance Urine pH Ur Specific Gravit y Urine Protein Urine Glucose (UA) Urine Ketones Urine Blood Urine Nitrate Urine Bilirubin Urine Urobilinogen Ur Leukocyte Che ase Urine RBC Urine WBC Ur Squamous Epith Cells Amorphous Sediment Urine Bacteria Urine Mucus SARS-CoV-2 Ag (Rap id) 03/14/21 03/14/21 03/14/21 12:30 12:30 12:38 WBC RBC Hgb Hct MCV MCH MCHC RDW Plt Count MPV Neut % (Auto) Lymph % (Auto) [place] % (Auto) Eos % (Auto) Baso % (Auto) Neut # (Auto) Lymph # (Auto) [place] # (Auto) Eos # (Auto) Baso # (Auto) Nucleated RBC % (a uto) Nucleated RBCs # Sodium Potassium Chloride Carbon Dioxide Anion Gap BUN Creatinine GFR Calculation Glucose Calculated Osmolal ity Lactate Calcium Magnesium Total Bilirubin AST ALT Alkaline Phosphata se Troponin T Baselin e 21 ng/L H ng/L (0-15) Troponin T 120 Min [place] Troponin T C-Reactive Protein NT-Pro-B Natriuret Pep Total Protein Albumin Globulin Procalcitonin 0.05 ng/mL ng/mL (0-0.5) TSH Urine Color Urine Appearance Urine pH Ur Specific Gravit y Urine Protein Urine Glucose (UA) Urine Ketones Urine Blood Urine Nitrate Urine Bilirubin Urine Urobilinogen Ur Leukocyte Che ase Urine RBC Urine WBC Ur Squamous Epith Cells Amorphous Sediment Urine Bacteria Urine Mucus SARS-CoV-2 Ag (Rap id) Negative (Negative) 03/14/21 03/14/21 13:07 14:58 WBC RBC Hgb Hct MCV MCH MCHC RDW Plt Count MPV Neut % (Auto) Lymph % (Auto) [place]lee % (Auto) Eos % (Auto) Baso % (Auto) Neut # (Auto) Lymph # (Auto) [place] # (Auto) Eos # (Auto) Baso # (Auto) Nucleated RBC % (a uto) Nucleated RBCs # Sodium Potassium Chloride Carbon Dioxide Anion Gap BUN Creatinine GFR Calculation Glucose Calculated Osmolal ity Lactate Calcium Magnesium Total Bilirubin AST ALT Alkaline Phosphata se Troponin T Baselin e Troponin T 120 Min [place] 21.27 ng/L H ng/L (0-15) Delta Troponin T 0.27 ABS# ABS# (0-10) C-Reactive Protein NT-Pro-B Natriuret Pep Total Protein Albumin Globulin Procalcitonin TSH Urine Color Yellow (Yellow) Urine Appearance Clear (CLEAR) Urine pH 5 (5-7) Ur Specific Gravit y 1.020 (1.005-1.030) Urine Protein Neg (Negative) Urine Glucose (UA) Norm (Normal) Urine Ketones 1+ H (Negative) Urine Blood Neg (Negative) Urine Nitrate Negative (Negative) Urine Bilirubin 1+ H (Negative) Urine Urobilinogen 4 mg/dL H mg/dL (Negative) Ur Leukocyte Che ase Trace H (Negative) Urine RBC 0-4 /hpf H /hpf (0-2) Urine WBC 5-10 /hpf H /hpf (0-5) Ur Squamous Epith Cells 0-4 /hpf H /hpf (0-5) Amorphous Sediment Not Reportable Urine Bacteria Trace /hpf /hpf (NONE) Urine Mucus 1+ /hpf /hpf SARS-CoV-2 Ag (Rap id) EKG Data^: EKG 1: Attestation: I personally reviewed and interpreted this EKG as follows: EKG interpretation date: 03/14/21 EKG interpretation time: 12:46 Interpretation: Twelve-lead EKG shows a regular rhythm at a rate of 118. WV interval 134, QRS duration 85, QTc 364. Normal axis. Interpretation: Sinus tachycardia. Computer generated interpretation: Chest/Abdomen/Pelvis CT 03/14/21 13:50 IMPRESSION: 1. New mild osteoporotic compression fractures at T12, L1 and L2 since 01/25/2021. 2. Prior vertebral compression fractures with vertebroplasty at T7, T8, T9 and T11. 3. Increase in size of the bilateral pulmonary metastatic nodules. Slight increase in size of the RIGHT hilar soft tissue mass since 01/25/2021. Consistent with progression of metastatic disease. 4. Subsegmental bilateral lower lobe pulmonary emboli. Due to their small size these may be asymptomatic. KUB X-Ray 03/17/21 15:56 IMPRESSION: No acute findings. Moderate colonic stool burden. Chest X-Ray 03/18/21 08:02 IMPRESSION: Interval change in the left lung base which considering the appearance and time interval likely represent atelectasis. EKG 2: Attestation: I personally reviewed and interpreted this EKG as follows: EKG interpretation date: 03/14/21 EKG interpretation time: 15:10 Interpretation: Twelve-lead EKG shows a regular rhythm at a rate of 108. WV interval normal. QRS duration 83, QTc 379. Normal axis. Interpretation: Sinus rhythm. Tachycardia Computer generated interpretation: Chest/Abdomen/Pelvis CT 03/14/21 13:50 IMPRESSION: 1. New mild osteoporotic compression fractures at T12, L1 and L2 since 01/25/2021. 2. Prior vertebral compression fractures with vertebroplasty at T7, T8, T9 and T11. 3. Increase in size of the bilateral pulmonary metastatic nodules. Slight increase in size of the RIGHT hilar soft tissue mass since 01/25/2021. Consistent with progression of metastatic disease. 4. Subsegmental bilateral lower lobe pulmonary emboli. Due to their small size these may be asymptomatic. KUB X-Ray 03/17/21 15:56 IMPRESSION: No acute findings. Moderate colonic stool burden. Chest X-Ray 03/18/21 08:02 IMPRESSION: Interval change in the left lung base which considering the appearance and time interval likely represent atelectasis. Discharge Plan Discharge Patient Disposition: Placed in Observation Admit Provider: Rosa Taylor Discharge Diet: As Directed Discharge Activity: Increase activity as tolerated, Use walker/crutches as instructed and As per PT/OT instructions Coding Level of Care Code ED Gear Tooth Lapping Machine Operator for Izabel Rojas
--- NOTE | 2021-03-14 11:56 | XR_ITS ---
WS: [id number] Exam: XR chest 1V portable [id number] Date/Time of Exam: 03/14/2021 11:56 AM Reason For Exam: cough, tachycardia, abnormal lung sounds Comparison 06/14/2018. The lungs are fully expanded. Chronic interstitial changes in the right lower lung zone. No pleural e ffusions. Cardiomediastinal silhouette is unremarkable. A left subclavian port is noted probably endi ng in the left brachiocephalic vein. It is unchanged in position. Signs of vertebral plasty involving several mid and lower thoracic vertebra. Several old right rib fractures. XR/XR chest 1V portable [id number] IMPRESSION: 1. No acute cardiopulmonary finding. 2. Chronic interstitial changes in the right base. Additional nonemergent findi ngs as detailed above.
--- NOTE | 2021-03-14 11:57 | ECG_ITS ---
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 Measurements Intervals [place] Rate: 118 P: 65 IA: 134 QRS: 73 QRSD: 85 T: 62 QT: 294 QTc: 412 Interpretive Statements SINUS TACHYCARDIA Compared to ECG 01/26/2021 14:18:05 No significant changes Electronically Signed On 03-16-2021 7:40:54 HEADER SETUP OPERATOR by Master Savage M.D. [id number]
[2021-03-14 12:53] LABS: Basophils # 0.1 10^3/uL (0.0-0.1); Basophils % 0.6 %; Eosinophils % 0.4 %; Hematocrit 41.8 % (42.0-52.0); Hemoglobin 13.8 g/dL (11.7-16.6); Lymphocytes # 2.1 10^3/uL (0.8-4.8); Lymphocytes % 21.4 %; Mean Corpuscular Hemoglobin 28.1 pg (28.0-34.0); Mean Corpuscular Volume 85.1 fl (80-94); Mean Platelet Volume 9.1 fL (7.4-10.4); Monocytes # 0.8 10^3/uL (0.2-0.9); Monocytes % 7.6 %; Neutrophils # 6.85 10^3/uL (1.8-7.7); Neutrophils % 69.7 %; Nucleated Red Blood Cells % 0 %; Platelet Count 279 10^3/cmm (130-400); Red Blood Count 4.91 10^6/uL (4.1-5.3); Red Cell Distribution Width 15.8 % (12.1-15.1); White Blood Count 9.8 10^3/uL (4.0-10.0)
[2021-03-14 13:16] LABS: Troponin(5th) Baseline 21 ng/L (0-15)
[2021-03-14 13:24] LABS: NT Pro B Type Natriuretic Pept 50 pg/mL (0-125); Thyroid Stimulating Hormone 0.69 uIU/mL (0.27-4.20)
[2021-03-14 13:25] LABS: Procalcitonin 0.05 ng/mL (0-0.5)
[2021-03-14 13:30] LABS: SARS Covid-2 Antigen Negative (Negative)
[2021-03-14 13:35] LABS: Blood Urine Neg (Negative); Glucose Urine UA Norm (Normal); Ketones Urine 1+ (Negative); Protein Urine Neg (Negative); Urine Appearance Clear (CLEAR); Urine Color Yellow (Yellow); pH Urine 5 (5-7)
[2021-03-14 13:36] LABS: Alanine Aminotransferase 11 U/L (0-41); Albumin Level 3.4 g/dL (3.5-5.2); Alkaline Phosphatase 135 IU/L (40-130); Anion Gap 19.4 (5-19); Aspartate Amino Transferase 12 U/L (0-40); Blood Urea Nitrogen 14 mg/dL (8-23); C Reactive Protein 24.6 mg/L (0.0-4.9); Calcium 8.9 mg/dL (8.5-10.5); Carbon Dioxide 22 mmol/L (22-29); Chloride 96 mmol/L (98-107); Globulin 2.5 g/dL (1.3-4.6); Glucose 103 mg/dL (65-115); Magnesium 1.5 mg/dL (1.7-2.3); Osmolality Calculated 277 mOsm/kg (285-295); Potassium 4.4 mmol/L (3.5-5.1); Sodium 133 mmol/L (136-145); Total Bilirubin 0.4 mg/dL (0.15-1.2); Total Protein 5.9 g/dL (6.6-8.7)
[2021-03-14 13:36] LABS: Add Urine Microscopic? YES; Bilirubin Urine 1+ (Negative); Leukocyte Esterase Urine Trace (Negative); Nitrate Urine Negative (Negative); Urobilinogen Urine 4 mg/dL (Negative)
[2021-03-14 13:47] LABS: RBC Urine 0-4 /hpf (0-2); Squamous Epithelial Cell Urine 0-4 /hpf (0-5)
[2021-03-14 13:48] LABS: Add Urine Culture? No; Bacteria Urine TRACE /hpf; Mucus Urine 1+ /hpf
--- NOTE | 2021-03-14 13:50 | CT_ITS ---
WS: [id number] CTA CHEST WITH CT ABDOMEN AND PELVIS. HISTORY: Tachycardia, postop. Nausea and vomiting and abdominal pain. TECHNIQUE: CT angiogram is performed through the chest. Additional imaging is performed through the a bdomen and pelvis with IV contrast. Sagittal and coronal reformats have been submitted. MIP imaging also reviewed. All CT scans at [facility] use at least one of these dose optimization techniqu es: automated exposure control; mA and/or kV adjustment per patient size (includes targeted exams whe re dose is matched to clinical indication); or iterative reconstruction. Contrast: Omnipaque 350; 95 cc IV. DLP: 1465.57 mGy.cm COMPARISON: 01/29/2021, 01/25/2021. Chest CTA: Very good opacification of the pulmonary arteries. Filling defects in the subsegmental bra nches of the lower lobes bilaterally. These are nonocclusive filling defects and may not be symptomat ic. Numerous bilateral pulmonary nodules have increased in size since the prior examination of 2020. Soft tissue mass at the RIGHT hilum measures 3.1 x 2.2 cm and may be confluent lymph nodes. Thi s mass was also previously described but is measuring slightly larger. Partial encasement of the RIGH T upper lobe bronchus. No lobar collapse. Mild atherosclerosis aorta. Mild distal esophageal wall thi ckening and hiatal hernia. Abdomen CT: Normal size liver. No metastatic disease. Prior cholecystectomy. Normal spleen and pancre as. No adrenal mass. No renal obstruction. Moderate atherosclerosis aorta and ectasia. No adenopathy or ascites. Mild diffuse constipation. No GI tract obstruction. Ventral abdominal wall hernia is multifocal conta ining fat only. Pelvic CT: Extensive atherosclerosis within the iliac arteries. Enlarged prostate gland is heterogene ous with calcification. Urinary bladder is well distended. Prior vertebroplasties at T7, T8, T9 and T11. New mild anterior compression deformities involving sup erior endplates of T12, L1 and L2. New compression since 01/25/2021. CT/CT angio chest w abd pel w con IMPRESSION: 1. New mild osteoporotic compression fractures at T12, L1 and L2 since 021. 2. Prior vertebral compression fractures with vertebroplasty at T7, T8, T9 and T11. 3. Increase in size of the bilateral pulmonary metastatic nodules. Slight incr ease in size of the RIGHT hilar soft tissue mass since 01/25/2021. Consistent w ith progression of metastatic disease. 4. Subsegmental bilateral lower lobe pulmonary emboli. Due to their small size these may be asymptomatic.
--- NOTE | 2021-03-14 13:57 | ECG_ITS ---
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 Measurements Intervals [place] Rate: 108 P: [place]: QRS: 66 QRSD: 83 T: 69 QT: 316 QTc: 424 Interpretive Statements SINUS TACHYCARDIA Compared to ECG 03/14/2021 12:24:55 NO CHANGES Electronically Signed On 03-16-2021 7:47:44 WAREHOUSE SORTER by Master Savage M.D. [id number]
[2021-03-14] MEDS: morphine 4 mg/mL SDV 1 mL IVP ×2 (14:04→15:28)
[2021-03-14] MEDS: iohexol 350 mg/mL 100 mL Btl IV (14:19)
[2021-03-14] MEDS: magnesium sulfate premix 2 GM/50 ML PIGGYBACK IV (14:57)
--- NOTE | 2021-03-14 15:25 | PC.PHAR ---
pts son surekha states the pt has home health from [facility] at home-pt states he takes care of his own medications-pt states he hasnt been filling his medications-medications entered are meds on the pts med list from [facility] and ext med history that has been filled and what the pt states he has been taking-norco 5-325mg was filled 01/24/21 7d/s pt states not been taking and is out-notes are made in the pharmacy comments
[2021-03-14] MEDS: sodium chloride 0.9% 500 ML 999 ML IV (15:28)
[2021-03-14 15:31] LABS: Troponin 5 2HR 21.27 ng/L (0-15); Troponin 5 2HR Delta 0.27 ABS# (0-10)
[2021-03-14 15:31] LABS: Lactate (Lactic Acid level) 0.8 mmol/L (0.5-2.2)
[2021-03-14 19:05] LABS: Troponin 5 6HR 22.36 ng/L (0-15); Troponin 5 6HR Delta 1.36 ng/L (0-12)
[2021-03-14] MEDS: enoxaparin 80 mg/0.8 mL Syringe SUBCUT (19:11)
--- NOTE | 2021-03-14 19:15 | PM.HP ---
Providers/Chief Complaint Primary Care Provider: MARIAMA Stanton Chief Complaint: N/V/ BACK PAIN/ DIFFICULTY BREATHING History of Present Illness Oswaldo Khan is a 75 year old male with past medical history of hypertension, colon cancer status post sigmoid resection, lung cancer, prostate cancer aspiration pneumonia presented to the ER today with complaint of nausea vomiting. He states that he had back surgery done a week ago for the second time. From operative notes it is evident that patient had T10 kyphoplasty with biopsy done due to T12 vertebral compression fracture on March 07, 2021. Patient states that he has been having dry heaving nausea vomiting and he did take Zofran for it but it did not really help. He was convinced by his family to come to the hospital and therefore he did. He has no other symptoms at this time. He does not have any chest pain, abdominal pain, leg pain. He does endorse a little bit of shortness of breath and states he is on a water pill at home but did not take it today. He is unsure of the name of the medication. He says his feet have been more swollen today as well. Echo from June this year shows grade 1 diastolic dysfunction with normal systolic EF. Patient is an active smoker and smokes daily. He is on albuterol and Spiriva and Stiolto at home. He takes lisinopril for high blood pressure. He states that every time he tries to take his pain tablets on an empty stomach he starts having nausea and that is what he believes happened today as well. He denies a cough at this time. Denies a fever. ED course: Blood pressure 123/70, respiratory 21, temperature 97.5, pulse rate 112, pulse ox 97%. On 2 L nasal cannula. Does not use any oxygen at home. Chest x-ray showed chronic interstitial changes in the right base. CT chest abdomen pelvis was done which showed new mild osteoporotic compression fracture T12, L1, L2 since 01/25/2021. Prior vertebral compression fractures with vertebroplasty at T7, T8, T9, T11. Increase in size of bilateral pulmonary metastatic nodules. Slight increase in size of the right hilar soft tissue mass since 01/25/2021. Consistent with progression of metastatic disease. Subsegmental bilateral lower lobe pulmonary emboli disease. Due to their small size these may be asymptomatic. ER physician told me that he spoke to nurse practitioner at surgeon's office who performed surgery a week ago and was told that there is no contraindication to anticoagulation at this time for this patient. Patient was given one-time full dose Lovenox. He was also ordered 1 L bolus of fluids and 4 mg morphine given x2. He was also given magnesium 2 g IV. Review of Systems General: Reports: 10 or more systems reviewed and unremarkable except in HPI and below Medications/Allergies Home Medications Medication Instructions Recorded Confirmed Last Taken Type omeprazole 20 mg PO DAILY 01/25/21 03/14/21 01/25/21 09:00 History Stiolto Respimat 2 puff INHALATION DAILY 01/26/21 03/14/21 01/25/21 History capecitabine See Rx Instructions .ROUTE .COMPLEX 01/26/21 03/14/21 Unknown History capecitabine [Xeloda] See Rx Instructions .ROUTE .COMPLEX 01/26/21 03/14/21 Unknown History prednisone 20 mg PO DAILY 01/26/21 03/14/21 03/06/21 History albuterol sulfate 2 inh INHALATION Q6H PRN #8.5 g 01/31/21 03/14/21 03/07/21 Rx oxycodone 10 mg tablet 10 mg PO Q6H PRN 30 Days #120 tab 03/07/21 03/14/21 Unknown Rx miscellaneous medical supply #1 ea 03/11/21 03/14/21 Unknown Rx Spiriva Respimat 1 puff INHALATION DAILY 03/14/21 03/14/21 Unknown History docusate sodium [Stool Softener] 100 mg PO DAILY 03/14/21 03/14/21 03/13/21 History lisinopril 40 mg PO DAILY 03/14/21 03/14/21 Unknown History ondansetron HCl 4 mg PO Q8H PRN 03/14/21 03/14/21 Unknown History polyethylene glycol 3350 17 g PO BID 03/14/21 03/14/21 Unknown History psyllium husk [Daily Fiber] 0.4 - 0.8 g PO DAILY 03/14/21 03/14/21 Unknown History Allergies Allergy/AdvReac Type Severity Reaction Status Date / Time No Known Allergies Allergy Verified 03/14/21 11:42 PFSH Acute PFSH: Medical History Aspiration pneumonia BPH loc w urin obs/LUTS Elevated PSA Essential (primary) hypertension H/O colon cancer, stage III Lung cancer Myalgia Nocturia Prostate CA Urinary retention Urinary urgency Surgical History History of liver biopsy / Percutaneous abscess drainage Port-A-Cath in place S/P colon resection 2016 ([facility]) -- sigmoid resection for colon cancer / cholecystectomy / incidental appendectomy / umbilical hernia repair Family History Mother , 62 CAD (coronary artery disease) Diabetes Father , 74 Cancer Colon Social History Quit status (tobacco): has tried quititng Second hand smoke exposure: Yes Smoking risk assessment/counseling performed?: No Alcohol intake: never Desire information about alcohol rehabilitation?: No Counseling given: No Desire information about substance/drug rehabilitation?: No Counseling given: No Adopted: No Caregiver/support person: No Lives independently: Yes Household members: none Housing: House Marital status: Current occupational status: retired History of recent travel: No Current gender identity: Male Vitals/I&O/Wt Last Vital Signs Temp 98.5 F 03/14/21 17:51 Pulse 105 H 03/14/21 19:08 Resp 18 03/14/21 19:08 BP 113/75 03/14/21 19:08 Pulse Ox 94 03/14/21 19:08 03/14/21 03/14/21 03/14/21 06:59 14:59 22:59 Intake Total 550 / 550 Balance 550 / 550 Weight last 48 hrs Weight 81.647 kg Physical Exam Narrative: EXAM NARRATIVE: General: Alert oriented x3, patient seen _laying in bed on 2 L nasal cannula, very very hard of hearing. No acute respiratory distress, sinus tachycardia 100-1 10. HEENT: Normocephalic, atraumatic, EOMI, breathing nasal cannula, normal respiratory effort no distress no intercostal muscle use. Cardio: Slightly tachycardic, normal S1-S2, no murmurs rubs gallops, JVD unable to be assessed since patient unable to sit up for me due to back pain. Respiratory: Bilateral rhonchi present in posterior lung sylvester. Patient was unable to sit up and had to be auscultated with him rolling over to his left side. No apparent crackles appreciated. GI: Abdomen soft, nontender, nondistended, bowel sounds + Back: Unable to examine the back or check for paraspinal muscle tenderness since patient unable to rollover. Extremities: 1+ pedal edema present bilaterally, otherwise lower extremities trace edema. Data : 03/14/21 12:30 03/14/21 12:30 Micro: Microbiology 03/14/21 14:58 Blood Culture - Preliminary Blood SPECIMEN COLLECTED 03/14/21 12:30 Blood Culture - Preliminary Blood SPECIMEN COLLECTED A&P Assessment and plan (1) Compression fx, lumbar spine: Status: Acute (2) Compression fracture of T10 vertebra: Status: Acute (3) Nausea & vomiting: Status: Acute (4) Compression fracture of T11 vertebra: Status: Acute (5) Acute exacerbation of chronic obstructive pulmonary disease: Status: Acute (6) Lung cancer: Status: Chronic Qualifiers: Laterality: unspecified laterality Lung location: unspecified part of lung Qualified Code(s): C34.90 - Malignant neoplasm of unspecified part of unspecified bronchus or lung (7) Essential (primary) hypertension: Status: Chronic (8) Lung nodule seen on imaging study: Status: Acute (9) Prostate CA: Status: Acute Additional A&P Information #Nausea vomiting #Shortness of breath on exertion #Small segmental pulmonary embolism #Progression of lung cancer #Lung nodule seen on CT scan appearing larger compared to prior study #History of prostate cancer #History of colon cancer status post resection #Acute exacerbation of COPD -Patient did receive 1 L fluid bolus. On echo from June he does have evidence of diastolic heart failure with normal ejection fraction. He slightly sinus tachycardic. He does have bilateral subsegmental PEs that are small and unsure if symptomatic from that or not. ?Requiring 2 L nasal cannula oxygen - Full dose Lovenox initiated. We will continue that for now. ER physician called nurse practitioner at surgeon's office who said it was okay to anticoagulate the patient for now -We will start Solu-Medrol 40 twice daily IV ?DuoNeb every 4 hours -We will recheck echo. #Compression fracture of T10 vertebra, T11, lumbar spine -Will call patients surgeon in AM. I believe these fractures have been operated on as CT scan today was comparing to imaging from january. Patient had surgery Dec 2 (for second time). ?Bedrest for patient -TLSO brace to be placed ?Pain management Morphine 2 mg every 4 hours as needed Full code DVT prophylaxis on full dose Lovenox Attestations Medical Necessity Statement*: > 48 hours stay. Has new O2 requirement. Needs workup Coding Level of Care Code Acute Narrow Fabrics Weaver for Chg Fwd Diagnoses Compression fx, lumbar spine S32.000A Compression fracture of T10 vertebra S22.070A Nausea & vomiting R11.2 Compression fracture of T11 vertebra S22.080A Acute exacerbation of chronic obstructive pulmonary disease J44.1 Lung cancer C34.90 Laterality: unspecified laterality Lung location: unspecified part of lung Essential (primary) hypertension I10 Lung nodule seen on imaging study R91.1 Prostate CA C61
[2021-03-14 20:04] LABS: Procalcitonin 0.05 ng/mL (0-0.5)
[2021-03-14] MEDS: morphine 4 mg/mL SDV 1 mL 2 MG IVP (22:01)
[2021-03-14] MEDS: ondansetron 4 MG Tablet PO (22:03)
[2021-03-14] MEDS: azithromycin 500 MG in sodium chloride 0.9% 250 ML 250 MG IV (23:34)
--- NOTE | 2021-03-14 23:44 | PC.NURSE ---
This RN educated pt on the order for a garcia catheter. Pt refusing stating you're not gonna put a damn catheter in me and I'm going pee just fine . Education continued and pt continued to yell at this RN stating you're not gonna do a fucking thing to me until you do something about my back . Dr. Staton called and made aware of pt catheter refusal and continued c/o pain unrelieved by morphine.
[2021-03-15] VITALS (16 sets, daily range): BP systolic 106–126; BP diastolic 64–80; PULSE 94–123; RESP 1–20; TEMP 36.6–36.9; O2SAT 86–94
[2021-03-15] MEDS: oxyCODONE 5 mg IR Tab/Cap 10 MG PO ×4 (00:02→20:34)
[2021-03-15 04:17] LABS: Phosphorus 3.2 mg/dL (2.5-4.5)
[2021-03-15] MEDS: morphine 4 mg/mL SDV 1 mL IVP ×2 (04:24→10:46)
[2021-03-15] MEDS: enoxaparin 80 mg/0.8 mL Syringe SUBCUT ×2 (06:13→17:17)
[2021-03-15] MEDS: ipratropium-albuterol 3 mL Neb INHALATION ×4 (10:28→20:16)
[2021-03-15] MEDS: docusate sodium 100 mg Capsule PO ×2 (10:40→17:17)
[2021-03-15] MEDS: pantoprazole DR 40 mg Tablet PO (10:40)
[2021-03-15] MEDS: magnesium sulfate premix 4 GM/100 ML PREMIX IV (13:31)
--- NOTE | 2021-03-15 14:11 | PC.CHAP ---
Pastoral Care Encounter/Spiritual Assessment Type of Contact [] Declined furniture technician visit [] Patient/Family/Request visit [] Outpatient visit [] Follow-up visit [] Physician referral [] Code/Alert [] Routine visit [] Staff referral [] Actively dying [] Patient sleeping [] Family support [] [] Out of room [] Palliative care [] [] Receiving care in room [] Pre-surgical visit [] Trauma [] Long length of stay [] ICU visit [xx] Other: Isolated Relational/Emotional Strength [] Patient feels connected with others/family/visitors/staff [] Distress [] Loneliness/isolation [] Abandonment Spirituality of Patient [] Person of [place] [] Attends Sabianism of their [place] [] Believes in Prayer [] Reads Bible or Judaism materials [] There are Spiritual issues to be addressed Machine Tool Mechanic Interventions [] Prayer [] Active listening [] Non-anxious presence [] Spiritual/emotional support [] Crisis/trauma care [] Spiritual counseling [] Bereavement support [] Provided bereavement packet [] Provided Bible/devotional materials [] Provided toy/stuffed animal, coloring book to patient or family member [] Provided Communion [] Anointing/[place] [] Salvation [] Completed spiritual assessment [] Other: Impact on Illness or Injury [] Angry [] Fearful [] Anxious [] Often cries [] Exhaustion [] Unable to work [] Unable to attend mosque [] Unable to walk/stand [] Unable to read [] Unable to drive [] Unable to eat/drink [] Unable to sleep [] Unable to be with family [] Patient intubated [] Other: Summary Time spent with patient
[2021-03-15 14:25] LABS: Coronavirus Test Green County Not Detected
--- NOTE | 2021-03-15 18:49 | PM.PN ---
Subjective Subjective: Interval history: Seen this morning. He states he is unable to move out of bed due to the back pain. He is slightly tachycardic up to 100 at bedside. He is very very hard of hearing. He states his breathing is a little bit better compared to before and he is able to lay flat in bed. Patient is currently on steroids. His scan was discussed with Dr. Miller. Patient does have evidence of new thoracic fractures. He is advised to place a TLSO brace on him. Once the brace is on and patient is able to walk around he may be discharged home to follow-up outpatient with either Dr. Miller or Dr. Bass. I discussed this with the patient and he said he does not have a preference on who to see. He does not offer any other complaints at this time. The nausea vomiting is also better. His heart rate is still little bit elevated. Vitals/I&O/Wt Last Vital Signs Temp 98.3 F 03/15/21 16:00 Pulse 104 H 03/15/21 16:28 Resp 18 03/15/21 16:28 BP 108/69 03/15/21 16:00 Pulse Ox 94 03/15/21 16:28 03/15/21 03/15/21 03/15/21 06:59 14:59 22:59 Intake Total 310 / 860 220 / 220 Output Total 275 / 275 Balance 35 / 585 220 / 220 Weight last 48 hrs Weight 75.841 kg Weight 81.647 kg Physical Exam Narrative: EXAM NARRATIVE: General: Alert oriented x3, patient seen _laying in bed on 2 L nasal cannula, very very hard of hearing. No acute respiratory distress, sinus tachycardia 100 HEENT: Normocephalic, atraumatic, EOMI, breathing nasal cannula, normal respiratory effort no distress no intercostal muscle use. Cardio: Slightly tachycardic, normal S1-S2, no murmurs rubs gallops, JVD unable to be assessed since patient unable to sit up for me due to back pain. Respiratory: Bilateral rhonchi present in posterior lung sylvester. Patient unable to sit up today or roll over. He states he has a lot of back pain and cannot move ever since he had the CT scan done yesterday. No apparent crackles appreciated. TLSO brace has not been applied yet but it has been ordered. GI: Abdomen soft, nontender, nondistended, bowel sounds + Back: Unable to examine the back or check for paraspinal muscle tenderness since patient unable to rollover. Extremities: 1+ pedal edema present bilaterally, otherwise lower extremities trace edema. Data : 03/14/21 12:30 03/14/21 12:30 Micro: Microbiology 03/14/21 14:58 Blood Culture - Preliminary Blood NEGATIVE TO DATE 03/14/21 12:30 Blood Culture - Preliminary Blood NEGATIVE TO DATE A&P Assessment and plan (1) Compression fx, lumbar spine: Status: Acute (2) Compression fracture of T10 vertebra: Status: Acute (3) Nausea & vomiting: Status: Acute (4) Compression fracture of T11 vertebra: Status: Acute (5) Acute exacerbation of chronic obstructive pulmonary disease: Status: Acute (6) Lung cancer: Status: Chronic Qualifiers: Laterality: unspecified laterality Lung location: unspecified part of lung Qualified Code(s): C34.90 - Malignant neoplasm of unspecified part of unspecified bronchus or lung (7) Essential (primary) hypertension: Status: Chronic (8) Lung nodule seen on imaging study: Status: Acute (9) Prostate CA: Status: Acute Additional A&P Information #Nausea vomiting?resolved #Shortness of breath on exertion #Small segmental pulmonary embolism #Progression of lung cancer #Lung nodule seen on CT scan appearing larger compared to prior study #History of prostate cancer #History of colon cancer status post resection #Acute exacerbation of COPD -Patient did receive 1 L fluid bolus. On echo from June he does have evidence of diastolic heart failure with normal ejection fraction. He slightly sinus tachycardic. He does have bilateral subsegmental PEs that are small and unsure if symptomatic from that or not. ?Requiring 2 L nasal cannula oxygen - Full dose Lovenox initiated. We will continue that for now. ER physician called nurse practitioner at surgeon's office who said it was okay to anticoagulate the patient for now -We will start Solu-Medrol 40 twice daily IV ?DuoNeb every 4 hours -Echo has been performed and result is pending ?EKG in a.m. I believe patient's shortness of breath is a combination of his COPD exacerbation versus progression of lung cancer at this point. He will probably require oxygen at discharge. We will do home O2 eval in a.m. I have ordered flutter valve for the patient as well. I will transition him to [facility] tomorrow. #Compression fracture of T10 vertebra, T11, lumbar spine -Will call patients surgeon in AM. I believe these fractures have been operated on as CT scan today was comparing to imaging from january. Patient had surgery Dec 2 (for second time). ?Bedrest for patient -TLSO brace to be placed. Discussed with Dr. Miller. Patient is to be seen outpatient to follow-up. Patient to work with physical therapy today to see his functional status. If patient is able to walk and get around I can possibly discharge him by tomorrow but if not patient will have to stay in the hospital till Thursday to be seen by orthopedic surgery as an inpatient. I would like to see how patient does with physical therapy today and then make a decision. ?Pain management Morphine 2 mg every 4 hours as needed Full code DVT prophylaxis on full dose Lovenox Attestations Medical Necessity Statement*: Greater than 24-hour stay. Coding Level of Care Code Acute Coagulating Operator for [facility] Fwd Diagnoses Compression fx, lumbar spine S32.000A Compression fracture of T10 vertebra S22.070A Nausea & vomiting R11.2 Compression fracture of T11 vertebra S22.080A Acute exacerbation of chronic obstructive pulmonary disease J44.1 Lung cancer C34.90 Laterality: unspecified laterality Lung location: unspecified part of lung Essential (primary) hypertension I10 Lung nodule seen on imaging study R91.1 Prostate CA C61
--- NOTE | 2021-03-15 19:26 | USCV_ITS ---
Oswaldo Khan Age: 75 Gender: M : 1945 Exam Date: 03/15/2021 05:43 Ordering Phys: Rosa Taylor MD Technologist: Love Rubio Exam Location: [facility] [place] Indication: SOB. ON COVID RESTRICTIONS BP: 106 / 64 HR: 105 Rhythm: Sinus Technical Quality: Very technically difficult study MEASUREMENTS (Male / Female) Normal Values 2D ECHO LV Chamber Size 2.9 cm RV Chamber Size 3.3 cm LA Diameter 3.1 cm LA Width 2.6 cm LA Height 3.0 cm RA Width 4.6 cm RA Height 3.9 cm M-MODE Aortic Annulus Diameter 4.3 cm LA Ao Ratio MM 0.7 DOPPLER AV Peak Velocity 147.0 cm/s LVOT Peak Velocity 116.7 cm/s MV Area PHT 10.0 cm squared Mitral E to A Ratio 0.7 MV E' Velocity 32.5 cm/s Mitral E to MV E' Ratio 10.0 Mitral E to LV E' Lateral Ratio 11.1 Mitral E to LV E' Septal Ratio 9.2 TR Peak Velocity 217.9 cm/s TR Peak Gradient 19.0 mmHg TR Mean Velocity 149.4 cm/s TR Mean Gradient 11.1 mmHg TR Velocity Time Integral 50.4 cm TV Peak E Velocity 80.0 cm/s Right Atrial Pressure 3.0 mmHg Pulmonary Artery Systolic Pressu 22.0 mmHg PV Peak Velocity 84.0 cm/s RV Acceleration Time 0.1 s RV Ejection Time 0.4 s RV AcT/ET 0.4 FINDINGS Left Ventricle Possible normal LV size ejection fraction Segmental wall motion analysis difficult. Right Ventricle Right ventricle appears to be mildly dilated Right Atrium Appears to be mildly dilated Left Atrium Possibly of normal size Mitral Valve Could not be visualized well Aortic Valve Could not be visualized well Tricuspid Valve Could not be visualized well Pulmonic Valve Pulmonic valve not well visualized. Pericardium Normal pericardium without effusion. Aorta Normal ascending aorta dimension. CONCLUSIONS Possible normal LV size ejection fraction Segmental wall motion analysis difficult. The right atrial and right ventricular appears to be dilated- could not visualize well There is no pericardial effusion. Technically difficult study because of the poor ultrasonic window. Dr Sascha Parekh MD [facility] (Electronically Signed) Final Date: 15 March 2021 15:53 S
--- NOTE | 2021-03-15 19:38 | PC.NURSE ---
i reported high pulse 107 to nurse
[2021-03-16] VITALS (17 sets, daily range): BP systolic 109–136; BP diastolic 66–72; PULSE 82–109; RESP 16–24; TEMP 36.3–36.8; O2SAT 91–95
[2021-03-16] MEDS: azithromycin 500 MG in sodium chloride 0.9% 250 ML 250 MG IV (00:49)
[2021-03-16] MEDS: morphine 4 mg/mL SDV 1 mL IVP ×2 (01:00→21:41)
[2021-03-16 03:37] LABS: Basophils % 0.1 %; Eosinophils % 0.2 %; Hematocrit 37.8 % (42.0-52.0); Hemoglobin 12.6 g/dL (11.7-16.6); Lymphocytes # 1.7 10^3/uL (0.8-4.8); Lymphocytes % 18.3 %; Mean Corpuscular HGB Conc 33.3 g/dL (30.0-36.0); Mean Corpuscular Hemoglobin 27.9 pg (28.0-34.0); Mean Corpuscular Volume 83.6 fl (80-94); Mean Platelet Volume 9.4 fL (7.4-10.4); Monocytes # 0.7 10^3/uL (0.2-0.9); Monocytes % 8.1 %; Neutrophils % 72.7 %; Nucleated Red Blood Cells % 0 %; Platelet Count 282 10^3/cmm (130-400); Red Blood Count 4.52 10^6/uL (4.1-5.3); Red Cell Distribution Width 15.4 % (12.1-15.1); White Blood Count 9.1 10^3/uL (4.0-10.0)
[2021-03-16 03:57] LABS: Anion Gap 13.9 (5-19); Blood Urea Nitrogen 14 mg/dL (8-23); Calcium 8.2 mg/dL (8.5-10.5); Carbon Dioxide 28 mmol/L (22-29); Chloride 96 mmol/L (98-107); Glucose 143 mg/dL (65-115); Magnesium 2.3 mg/dL (1.7-2.3); Osmolality Calculated 279 mOsm/kg (285-295); Potassium 4.9 mmol/L (3.5-5.1); Sodium 133 mmol/L (136-145)
[2021-03-16] MEDS: oxyCODONE 5 mg IR Tab/Cap 10 MG PO ×2 (06:03→12:08)
[2021-03-16] MEDS: enoxaparin 80 mg/0.8 mL Syringe SUBCUT (06:03)
[2021-03-16] MEDS: ipratropium-albuterol 3 mL Neb INHALATION ×4 (07:51→19:15)
[2021-03-16] MEDS: pantoprazole DR 40 mg Tablet PO (07:52)
[2021-03-16] MEDS: polyethylene glycol 3350 Pkt 17 gm PO (07:52)
[2021-03-16] MEDS: docusate sodium 100 mg Capsule PO (07:53)
--- NOTE | 2021-03-16 11:40 | PC.CHAP ---
Pastoral Care Encounter/Spiritual Assessment Type of Contact [] Declined entry level marketing representative visit [] Patient/Family/Request visit [] Outpatient visit [] Follow-up visit [] Physician referral [] Code/Alert [XX] Routine visit [] Staff referral [] Actively dying [] Patient sleeping [] Family support [] [] Out of room [] Palliative care [] [XX] Receiving care in room [] Pre-surgical visit [] Trauma [] Long length of stay [] ICU visit [XX] Other: Physical therapist informed entry level marketing representative that patient is VERY hard of hearing Relational/Emotional Strength [] Patient feels connected with others/family/visitors/staff [] Distress [] Loneliness/isolation [] Abandonment Spirituality of Patient [] Person of [place] [] Attends Anglican of their [place] [] Believes in Prayer [] Reads Bible or Zoroastrianism materials [] There are Spiritual issues to be addressed Ball Rolling Machine Operator Interventions [] Prayer [] Active listening [] Non-anxious presence [] Spiritual/emotional support [] Crisis/trauma care [] Spiritual counseling [] Bereavement support [] Provided bereavement packet [] Provided Bible/devotional materials [] Provided toy/stuffed animal, coloring book to patient or family member [] Provided Communion [] Anointing/[place] [] Salvation [] Completed spiritual assessment [] Other: Impact on Illness or Injury [] Angry [] Fearful [] Anxious [] Often cries [] Exhaustion [] Unable to work [] Unable to attend yazidism [] Unable to walk/stand [] Unable to read [] Unable to drive [] Unable to eat/drink [] Unable to sleep [] Unable to be with family [] Patient intubated [] Other: Summary Time spent with patient
[2021-03-16] MEDS: sodium chloride 0.9% 1,000 ML 75 ML IV (12:09)
[2021-03-16] MEDS: vancomycin 1,250 MG/250 ML PIGGYBACK 250 MG IV (12:09)
--- NOTE | 2021-03-16 14:39 | PC.NURSE ---
Left chest port accessed with no complications. Unable to aspirate blood but does flush with no apparent issues. Dr. Taylor notified.
[2021-03-16] MEDS: piperacillin-tazobactam 3.375 GM in sodium chloride 0.9% (plus) 50 ML IV ×2 (14:41→22:18)
[2021-03-16] MEDS: levofloxacin-dextrose 5 % 750 MG/150 ML PREMIX 100 MG IV (14:41)
--- NOTE | 2021-03-16 16:19 | P.PN_ITS ---
Subjective Subjective: Interval history: Seen this morning. Patient is very hard of hearing so its hard to explain to him what is going on. 1 out of 4 bottles of blood cultures positive for gram-negative rods. Blood cultures have been repeated. We will also try to obtain cultures off of the subclavian port however the nurse reported that the port will not draw and seems to be blocked. Patient has had sinus tachycardia on and off since yesterday. WBC count 9.1. Vitals/I&O/Wt Last Vital Signs Temp 97.6 F 03/16/21 11:38 Pulse 108 H 03/16/21 15:37 Resp 16 03/16/21 15:37 BP 136/66 03/16/21 11:38 Pulse Ox 94 03/16/21 15:37 03/16/21 03/16/21 03/16/21 06:59 14:59 22:59 Intake Total 250 / 470 250 / 250 240 / 490 Output Total 400 / 400 Balance 250 / 470 -150 / -150 240 / 90 Weight last 48 hrs Weight 75.841 kg Physical Exam Narrative: EXAM NARRATIVE: General: Alert oriented x3, patient seen sitting up in recliner today. Heart rate normal at the time when seen. HEENT: Normocephalic, atraumatic, EOMI, breathing nasal cannula, normal respiratory effort no distress no intercostal muscle use. Cardio: Not tachycardic at this time., normal S1-S2, no murmurs rubs gallops, Respiratory: Bilateral rhonchi present in posterior lung sylvester. TLSO brace in place. No gross crackles in bases. GI: Abdomen soft, nontender, nondistended, bowel sounds + Back: Does have paraspinal muscle tenderness and some tenderness over the thoracic spine area. Extremities: 1+ pedal edema present bilaterally, otherwise lower extremities trace edema. Data : 03/16/21 02:55 03/16/21 02:55 Micro: Microbiology 03/16/21 10:57 Blood Culture - Preliminary Blood SPECIMEN COLLECTED 03/16/21 10:59 Blood Culture - Preliminary Blood SPECIMEN COLLECTED 03/14/21 12:30 Blood Culture - Preliminary Blood 03/14/21 14:58 Blood Culture - Preliminary Blood NEGATIVE TO DATE A&P Assessment and plan (1) Compression fx, lumbar spine: Status: Acute (2) Compression fracture of T10 vertebra: Status: Acute (3) Nausea & vomiting: Status: Acute (4) Compression fracture of T11 vertebra: Status: Acute (5) Acute exacerbation of chronic obstructive pulmonary disease: Status: Acute (6) Lung cancer: Status: Chronic Qualifiers: Laterality: unspecified laterality Lung location: unspecified part of lung Qualified Code(s): C34.90 - Malignant neoplasm of unspecified part of unspecified bronchus or lung (7) Essential (primary) hypertension: Status: Chronic (8) Lung nodule seen on imaging study: Status: Acute (9) Prostate CA: Status: Acute Additional A&P Information #Nausea vomiting?resolved #Shortness of breath on exertion?resolved #Small segmental pulmonary embolism #Progression of lung cancer #Lung nodule seen on CT scan appearing larger compared to prior study #History of prostate cancer #History of colon cancer status post resection #Acute exacerbation of COPD #Gram-negative rocío bacteremia -Patient did receive 1 L fluid bolus. On echo from June he does have evidence of diastolic heart failure with normal ejection fraction. He slightly sinus tachycardic. He does have bilateral subsegmental PEs that are small and unsure if symptomatic from that or not. ?Requiring 2 L nasal cannula oxygen - Full dose Lovenox initiated. ER physician called nurse practitioner at surgeon's office who said it was okay to anticoagulate the patient for now. I will stop full dose Lovenox and transition patient to Eliquis. -We will stop Solu-Medrol 40 twice a day and instead do inhaled budesonide. ?DuoNeb every 4 hours -Echo has been performed shows possible normal LV size and normal ejection fraction, segmental wall motion analysis difficult. Right atrial and right ventricle appears to be dilated but cannot be visualized well. No pericardial effusion. Difficult study. ?EKG from the morning shows sinus tachycardia. No evidence of A. fib. ?We will recheck blood cultures today, sputum Gram stain, urine culture, MRSA nares PCR, will also draw blood cultures off of his port but the port is not drawing as per RN. Will discuss with surgery. Maybe the port will need to be removed. ?We will continue IV fluids for the patient. I believe patient's shortness of breath is a combination of his COPD exacerbation versus progression of lung cancer at this point. He will probably require oxygen at discharge. We will do home O2 eval in a.m. I have ordered flutter valve for the patient as well. #Compression fracture of T10 vertebra, T11, lumbar spine -Will call patients surgeon in AM. I believe these fractures have been operated on as CT scan today was comparing to imaging from january. Patient had surgery Dec 2 (for second time). ?Bedrest for patient -TLSO brace to be placed. Discussed with Dr. Miller. Patient is to be seen outpatient to follow-up. Patient to work with physical therapy today to see his functional status. Patient is able to walk with his walker with a TLSO brace in place. ?Pain management Morphine 2 mg every 4 hours as needed Full code DVT prophylaxis on Eliquis now. Attestations Medical Necessity Statement*: Greater than 48-hour stay due to gram-negative bacteremia at this point. Coding Level of Care Code Acute Marble Cutter for Chg Fwd Diagnoses Compression fx, lumbar spine S32.000A Compression fracture of T10 vertebra S22.070A Nausea & vomiting R11.2 Compression fracture of T11 vertebra S22.080A Acute exacerbation of chronic obstructive pulmonary disease J44.1 Lung cancer C34.90 Laterality: unspecified laterality Lung location: unspecified part of lung Essential (primary) hypertension I10 Lung nodule seen on imaging study R91.1 Prostate CA C61
[2021-03-16] MEDS: budesonide 0.5 mg/2 mL Neb INHALATION (19:15)
[2021-03-16] MEDS: alteplase 1 mg/mL SDV 2 mL 2 MG IV (20:31)
[2021-03-16] MEDS: ondansetron 4 MG Tablet PO (21:48)
[2021-03-16] MEDS: apixaban 5 mg Tablet 10 MG PO (22:19)
[2021-03-17] VITALS (12 sets, daily range): BP systolic 98–126; BP diastolic 63–84; PULSE 88–119; RESP 16–22; TEMP 36.4–37.1; O2SAT 91–94
[2021-03-17] MEDS: vancomycin 1,250 MG/250 ML PIGGYBACK 250 MG IV ×3 (00:47→22:39)
[2021-03-17] MEDS: morphine 4 mg/mL SDV 1 mL IVP (02:51)
[2021-03-17 03:53] LABS: Basophils % 0.4 %; Eosinophils % 0.4 %; Hematocrit 38.4 % (42.0-52.0); Hemoglobin 12.8 g/dL (11.7-16.6); Mean Corpuscular HGB Conc 33.3 g/dL (30.0-36.0); Mean Corpuscular Hemoglobin 28.1 pg (28.0-34.0); Mean Corpuscular Volume 84.4 fl (80-94); Mean Platelet Volume 9.2 fL (7.4-10.4); Monocytes # 0.8 10^3/uL (0.2-0.9); Monocytes % 7.6 %; Neutrophils % 81.3 %; Nucleated Red Blood Cells % 0 %; Platelet Count 264 10^3/cmm (130-400); Red Blood Count 4.55 10^6/uL (4.1-5.3); Red Cell Distribution Width 15.6 % (12.1-15.1); White Blood Count 10.3 10^3/uL (4.0-10.0)
[2021-03-17] MEDS: oxyCODONE 5 mg IR Tab/Cap 10 MG PO ×2 (04:12→10:20)
[2021-03-17 04:15] LABS: Anion Gap 16.6 (5-19); Blood Urea Nitrogen 13 mg/dL (8-23); Calcium 8.8 mg/dL (8.5-10.5); Carbon Dioxide 23 mmol/L (22-29); Chloride 96 mmol/L (98-107); Glucose 107 mg/dL (65-115); Magnesium 1.9 mg/dL (1.7-2.3); Osmolality Calculated 273 mOsm/kg (285-295); Potassium 4.6 mmol/L (3.5-5.1); Sodium 131 mmol/L (136-145)
[2021-03-17] MEDS: budesonide 0.5 mg/2 mL Neb INHALATION ×2 (07:50→19:41)
[2021-03-17] MEDS: ipratropium-albuterol 3 mL Neb INHALATION ×2 (07:51→19:41)
[2021-03-17] MEDS: polyethylene glycol 3350 Pkt 17 gm PO ×2 (08:48→18:41)
[2021-03-17] MEDS: apixaban 5 mg Tablet 10 MG PO (08:48)
[2021-03-17] MEDS: piperacillin-tazobactam 3.375 GM in sodium chloride 0.9% (plus) 50 ML IV ×3 (08:49→23:57)
[2021-03-17] MEDS: pantoprazole DR 40 mg Tablet PO (08:49)
[2021-03-17] MEDS: docusate sodium 100 mg Capsule PO ×2 (08:49→18:41)
[2021-03-17] MEDS: ondansetron 4 MG Tablet PO ×2 (11:40→22:39)
[2021-03-17] MEDS: sodium chloride 0.9% 1,000 ML 75 ML IV (11:40)
[2021-03-17] MEDS: levofloxacin-dextrose 5 % 750 MG/150 ML PREMIX 100 MG IV (11:41)
--- NOTE | 2021-03-17 12:28 | PC.CHAP ---
Pastoral Care Encounter/Spiritual Assessment Type of Contact [] Declined campus recruiting coordinator visit [] Patient/Family/Request visit [] Outpatient visit [] Follow-up visit [] Physician referral [] Code/Alert [XX] Routine visit [] Staff referral [] Actively dying [XX] Patient sleeping [] Family support [] [] Out of room [] Palliative care [] [] Receiving care in room [] Pre-surgical visit [] Trauma [] Long length of stay [] ICU visit [] Other: Relational/Emotional Strength [] Patient feels connected with others/family/visitors/staff [] Distress [] Loneliness/isolation [] Abandonment Spirituality of Patient [] Person of [place] [] Attends Mormonism of their [place] [] Believes in Prayer [] Reads Bible or Restorationism materials [] There are Spiritual issues to be addressed Wireworker Supervisor Interventions [] Prayer [] Active listening [] Non-anxious presence [] Spiritual/emotional support [] Crisis/trauma care [] Spiritual counseling [] Bereavement support [] Provided bereavement packet [] Provided Bible/devotional materials [] Provided toy/stuffed animal, coloring book to patient or family member [] Provided Communion [] Anointing/[place] [] Salvation [] Completed spiritual assessment [] Other: Impact on Illness or Injury [] Angry [] Fearful [] Anxious [] Often cries [] Exhaustion [] Unable to work [] Unable to attend protestant [] Unable to walk/stand [] Unable to read [] Unable to drive [] Unable to eat/drink [] Unable to sleep [] Unable to be with family [] Patient intubated [] Other: Summary Time spent with patient
--- NOTE | 2021-03-17 13:50 | PC.SOCIAL ---
IMM update IMM updated with patient. Verbalized an understanding. Copy Pg 2 provided. Initialled, dated, timed, and placed in chart.
[2021-03-17] MEDS: lactulose oral liq 20 gm/30 mL UDC PO ×2 (13:52→18:40)
--- NOTE | 2021-03-17 14:47 | PM.PN ---
Subjective Subjective: Interval history: Seen this morning. He sitting up in the recliner. His TLSO brace is off. I was also reported by nursing staff that overnight he did not wear the brace as he was supposed to. He is noncompliant. When patient tries to move without the brace he gets a lot of pain in his back and get sinus tachycardic. His sinus tachycardia is clearly related to his back pain. I tried to reason with the patient today and he said that he does not like to wear the brace and that sweats off. He states he has 1 of these at home as well but does not feel like to wear it. I convinced him to put it back on. Patient also states that he is constipated and he would like to have an enema. He would like to administer the enema himself. I told him that was a bad idea since he has a back fracture and it would be difficult for him to administer it. Sputum is growing gram-negative rods. Patient subclavian port is not flushing anymore. He also states that it has not been flushing for last few weeks unsure of the exact timing. He has been having blood drawn from peripheral site and port has not been functioning. Cathflo was used last night as well but port was unable to be flushed. Site of port does not look erythematous. Repeat blood cultures are negative to date so far but the initial blood cultures obtained on admission 1 bottle is growing gram-negative rods. He has been covered with broad-spectrum antibiotics at this time. Vitals/I&O/Wt Last Vital Signs Temp 97.5 F L 03/17/21 12:00 Pulse 119 H 03/17/21 12:00 Resp 18 03/17/21 12:00 BP 100/66 03/17/21 12:00 Pulse Ox 94 03/17/21 12:00 03/16/21 03/17/21 03/17/21 22:59 06:59 14:59 Intake Total 860 / 1110 300.00 / 1410.00 1368.75 / 1368.75 Balance 860 / 710 300.00 / 1010.00 1368.75 / 1368.75 Weight last 48 hrs Weight 75.886 kg Physical Exam Narrative: EXAM NARRATIVE: General: Alert oriented x3, patient seen sitting up in recliner today. Heart rate normal at the time when seen. TLSO brace is on the patient's back but not locked in place and not strapped in. He states he does not like to wear it. HEENT: EOMI, breathing nasal cannula, normal respiratory effort no distress no intercostal muscle use. Cardio: Not tachycardic at this time., normal S1-S2, no murmurs rubs gallops, Respiratory: Bilateral rhonchi present in posterior lung sylvester at the bases. No gross crackles in bases. Air entry diminished today. He is on 3 L nasal cannula. GI: Abdomen soft, nontender, nondistended, bowel sounds + Back: Does have paraspinal muscle tenderness and some tenderness over the thoracic spine area. Extremities: Trace bilateral lower extremity edema. No gross signs of fluid overload. Data : 03/17/21 03:20 03/17/21 03:20 Micro: Microbiology 03/16/21 13:45 Gram Stain - Final Sputum - Expectorated Sputum Sputum Culture - Preliminary Gram Negative Rods 03/16/21 10:57 Blood Culture - Preliminary Blood NEGATIVE TO DATE 03/16/21 10:59 Blood Culture - Preliminary Blood NEGATIVE TO DATE 03/16/21 14:50 MRSA Culture - Final Nose 03/16/21 13:45 Legionella Urinary Antigen - Final Urine,Clean Catch Urine Culture - Preliminary Bacterial Antigens - Final 03/14/21 12:30 Blood Culture - Preliminary Blood Gram Negative Rods A&P Assessment and plan (1) Compression fx, lumbar spine: Status: Acute (2) Compression fracture of T10 vertebra: Status: Acute (3) Nausea & vomiting: Status: Acute (4) Compression fracture of T11 vertebra: Status: Acute (5) Acute exacerbation of chronic obstructive pulmonary disease: Status: Acute (6) Lung cancer: Status: Chronic Qualifiers: Laterality: unspecified laterality Lung location: unspecified part of lung Qualified Code(s): C34.90 - Malignant neoplasm of unspecified part of unspecified bronchus or lung (7) Essential (primary) hypertension: Status: Chronic (8) Lung nodule seen on imaging study: Status: Acute (9) Prostate CA: Status: Acute Additional A&P Information #Nausea vomiting?resolved #Shortness of breath on exertion?resolved #Small segmental pulmonary embolism #Progression of lung cancer #Lung nodule seen on CT scan appearing larger compared to prior study #History of prostate cancer #History of colon cancer status post resection #Acute exacerbation of COPD #Gram-negative rocío bacteremia -Patient did receive 1 L fluid bolus. On echo from June he does have evidence of diastolic heart failure with normal ejection fraction. He slightly sinus tachycardic. He does have bilateral subsegmental PEs that are small and unsure if symptomatic from that or not. ?Requiring 3 L nasal cannula oxygen - Full dose Lovenox initiated. ER physician called nurse practitioner at surgeon's office who said it was okay to anticoagulate the patient for now. I will stop full dose Lovenox and transition patient to Eliquis. -Patient was initially on Solu-Medrol 40 twice a day and that was stopped and he was started on inhaled budesonide. At this point have not put him on prednisone 40 oral daily. ?DuoNeb every 4 hours -Echo has been performed shows possible normal LV size and normal ejection fraction, segmental wall motion analysis difficult. Right atrial and right ventricle appears to be dilated but cannot be visualized well. No pericardial effusion. Difficult study. ?Patient sinus tachycardia is related to his back pain. He is not very compliant with the TLSO brace. Every time he takes it off he has back pain and then he has sinus tachycardia. Blood pressure is stable little on the lower side but patient denies any lightheadedness or dizziness. ?Repeat blood cultures pending Sputum Gram stain showing gram-negative rods culture sensitivity pending Urine culture negative so far MRSA nares PCR negative Unable to draw blood cultures off of subclavian port. Port is not drawing anymore. Patient states that port has not been trying for a few weeks now. We will keep a close eye on the blood cultures. At this point the port may just need to come out. I will keep patient n.p.o. at midnight tonight. Discussed with son, he agrees to taking out subclavian port. I will let Dr. Frausto know. ?We will continue IV fluids for the patient. I believe patient's shortness of breath is a combination of his COPD exacerbation versus progression of lung cancer at this point. He will probably require oxygen at discharge. We will do home O2 eval in a.m. I have ordered flutter valve for the patient as well. #Compression fracture of T10 vertebra, T11, lumbar spine -Will call patients surgeon in AM. I believe these fractures have been operated on as CT scan today was comparing to imaging from january. Patient had surgery Dec 2 (for second time). ?Bedrest for patient -TLSO brace to be placed. Discussed with Dr. Miller. Patient is to be seen outpatient to follow-up. Patient to work with physical therapy today to see his functional status. Patient is able to walk with his walker with a TLSO brace in place. ?Pain management Morphine 2 mg every 4 hours as needed Patient is also on oxycodone immediate release every 6 hours as needed. He has been noncompliant with the brace at this time. I have tried to counselor nurses' association him to the best of my ability. Full code DVT prophylaxis on Eliquis now. Son and his updated in detailed, Call time 15 min. All questions answered. I told them about patients noncompliance to the back brace. Son states he will text the patient about it. Attestations Medical Necessity Statement*: > 48 hours Coding Level of Care Code Acute Dairy Farm Supervisor for Chg Fwd Diagnoses Compression fx, lumbar spine S32.000A Compression fracture of T10 vertebra S22.070A Nausea & vomiting R11.2 Compression fracture of T11 vertebra S22.080A Acute exacerbation of chronic obstructive pulmonary disease J44.1 Lung cancer C34.90 Laterality: unspecified laterality Lung location: unspecified part of lung Essential (primary) hypertension I10 Lung nodule seen on imaging study R91.1 Prostate CA C61
[2021-03-17] MEDS: metoclopramide 5 mg/mL SDV 2 mL 10 MG IVP (15:34)
[2021-03-17] MEDS: Fleet Enema 133 mL Enema PR (15:37)
--- NOTE | 2021-03-17 15:56 | XRR_ITS ---
PROCEDURE INFORMATION: Exam: XR Abdomen Exam date and time: 03/17/2021 3:56 PM Age: 75 years old Clinical indication: Pain; Other: Back and abd; Additional info: Constipation TECHNIQUE: Imaging protocol: XR of the abdomen. Views: Frontal supine view of the abdomen. 1 View. COMPARISON: CR XR abdomen 1V* [id number] 02/12/2021 12:03 PM FINDINGS: Gastrointestinal tract: No bowel dilation. Moderate colonic stool burden. Bones/joints: Unremarkable. XR/XR KUB portable [id number] IMPRESSION: No acute findings. Moderate colonic stool burden.
--- NOTE | 2021-03-17 18:15 | ECG_ITS ---
[facility] Test Date: 2021-03-17 Pat Name: Oswaldo Khan Department: Room: 273 Gender: Male Take Up Operator: : 1945 Requested By: Rosa Taylor Order Number: [id number] Lucia MD: Sascha Parekh M.D. Measurements Intervals [place] Rate: 122 P: 78 NH: 140 QRS: 68 QRSD: 81 T: 65 QT: 285 QTc: 407 Interpretive Statements SINUS TACHYCARDIA WITH OCCASIONAL SUPRAVENTRICULAR PREMATURE COMPLEXES ABNORMAL RHYTHM ECG Compared to ECG 03/14/2021 15:04:02 No significant changes Electronically Signed On 03-17-2021 20:13:23 GUSSET EDGER by Sascha Parekh M.D. [id number]
[2021-03-17 18:51] LABS: Troponin T (5th) Once 37 ng/L (0-15)
--- NOTE | 2021-03-17 19:51 | PC.NURSE ---
i reported high pulse 112 and high reps 20 to nurse
[2021-03-17 22:24] LABS: Vancomycin Trough 15.6 ug/mL (10-15)
--- NOTE | 2021-03-17 23:41 | PC.NURSE ---
i reported high pulse 108 and high reps 20 to nurse
[2021-03-18] VITALS (15 sets, daily range): BP systolic 105–149; BP diastolic 68–80; PULSE 93–110; RESP 16–20; TEMP 36.6–37; O2SAT 92–97
[2021-03-18 04:27] LABS: Basophils % 0.4 %; Eosinophils % 0.4 %; Hematocrit 41.2 % (42.0-52.0); Hemoglobin 13.7 g/dL (11.7-16.6); Lymphocytes # 1.2 10^3/uL (0.8-4.8); Lymphocytes % 11.3 %; Mean Corpuscular HGB Conc 33.3 g/dL (30.0-36.0); Mean Corpuscular Volume 84.3 fl (80-94); Mean Platelet Volume 9.4 fL (7.4-10.4); Monocytes # 0.7 10^3/uL (0.2-0.9); Monocytes % 6.1 %; Neutrophils % 81.3 %; Nucleated Red Blood Cells % 0 %; Platelet Count 297 10^3/cmm (130-400); Red Blood Count 4.89 10^6/uL (4.1-5.3); Red Cell Distribution Width 15.5 % (12.1-15.1); White Blood Count 10.6 10^3/uL (4.0-10.0)
[2021-03-18 04:37] LABS: INR 1.16 (0.8-1.2)
[2021-03-18 04:49] LABS: Anion Gap 15.4 (5-19); Blood Urea Nitrogen 15 mg/dL (8-23); Calcium 8.5 mg/dL (8.5-10.5); Carbon Dioxide 24 mmol/L (22-29); Chloride 98 mmol/L (98-107); Glucose 107 mg/dL (65-115); Magnesium 1.8 mg/dL (1.7-2.3); Osmolality Calculated 277 mOsm/kg (285-295); Potassium 4.4 mmol/L (3.5-5.1); Sodium 133 mmol/L (136-145)
--- NOTE | 2021-03-18 05:25 | PC.NURSE ---
Pt stated, he had a bowel movement yesterday after he was given enema, he stated I used a wipe to reach up there and help pull it out .
[2021-03-18] MEDS: sodium chloride 0.9% 1,000 ML 75 ML IV ×2 (06:42→22:18)
--- NOTE | 2021-03-18 08:02 | XR_ITS ---
WS: [id number] XR chest 1V portable [id number] REASON FOR EXAM: follow up FINDINGS: Left chemotherapy port and catheter position are unchanged compared to 03/14/2021. The left transverse left subclavian vein catheter tip is at the innominate superior vena caval junction. Compared to previous examination of 03/14/2021, there are now linear obliquely oriented densities in t he left lung base. The multiple pulmonary nodules demonstrated on the CT scan of 03/14/2021 are not readily identifiable on the chest x-ray. No other significant interval change or new finding. XR/XR chest 1V portable [id number] IMPRESSION: Interval change in the left lung base which considering the appearance and time interval likely represent atelectasis.
[2021-03-18] MEDS: budesonide 0.5 mg/2 mL Neb INHALATION ×2 (08:25→20:22)
[2021-03-18] MEDS: ipratropium-albuterol 3 mL Neb INHALATION ×4 (08:25→20:22)
[2021-03-18] MEDS: pantoprazole DR 40 mg Tablet PO (08:52)
[2021-03-18] MEDS: piperacillin-tazobactam 3.375 GM in sodium chloride 0.9% (plus) 50 ML IV ×2 (08:52→16:08)
[2021-03-18] MEDS: docusate sodium 100 mg Capsule PO ×2 (08:52→17:40)
[2021-03-18] MEDS: polyethylene glycol 3350 Pkt 17 gm PO ×2 (08:53→17:40)
[2021-03-18] MEDS: levofloxacin-dextrose 5 % 750 MG/150 ML PREMIX 100 MG IV (10:56)
[2021-03-18] MEDS: oxyCODONE 5 mg IR Tab/Cap 10 MG PO ×3 (10:56→22:30)
[2021-03-18] MEDS: vancomycin 1,250 MG/250 ML PIGGYBACK 250 MG IV ×2 (12:02→22:18)
[2021-03-18] MEDS: lactulose oral liq 20 gm/30 mL UDC PO ×2 (12:02→17:40)
--- NOTE | 2021-03-18 15:19 | PM.PN ---
Subjective Subjective: Interval history: Patient was seen and examined this morning, no active complaints, he is noncompliant with using spine brace, did request Dr. Miller to evaluate him as well, he is planning to do outpatient pain management, no acute intervention, no active signs of spinal cord compression Blood culture 1/4+ for gram-negative as well as sputum, not sure if it is contaminant Afebrile No worsening of leukocytosis Repeat blood cultures negative Requiring 2 to 3 L nasal cannula secondary to hypoventilation Vitals/I&O/Wt Last Vital Signs Temp 98.1 F 03/18/21 15:14 Pulse 99 03/18/21 15:14 Resp 18 03/18/21 15:14 BP 105/69 03/18/21 15:14 Pulse Ox 94 03/18/21 15:14 03/18/21 03/18/21 03/18/21 06:59 14:59 22:59 Intake Total 1300 / 2718.75 450 / 450 Output Total 460 / 860 Balance 840 / 1858.75 450 / 450 Weight last 48 hrs Weight 74.503 kg Weight 75.886 kg Physical Exam Narrative: EXAM NARRATIVE: Patient lying comfortably in his bed Saturating well on 3 L nasal cannula No active chest complain of shortness of breath No audible stridor or wheezing Abdomen soft Nonfocal neuro exam Very hard of hearing No active distress S1, S2 No joint swelling Data : 03/18/21 04:00 03/18/21 04:00 Micro: Microbiology 03/16/21 13:45 Gram Stain - Final Sputum - Expectorated Sputum Sputum Culture - Final Pseudomonas aeruginosa 03/16/21 13:45 Legionella Urinary Antigen - Final Urine,Clean Catch Urine Culture - Final Bacterial Antigens - Final 03/16/21 10:57 Blood Culture - Preliminary Blood NEGATIVE TO DATE 03/16/21 10:59 Blood Culture - Preliminary Blood NEGATIVE TO DATE 03/16/21 14:50 MRSA Culture - Final Nose A&P Assessment and plan (1) Compression fx, lumbar spine: Status: Acute (2) Compression fracture of T10 vertebra: Status: Acute (3) Nausea & vomiting: Status: Acute (4) Compression fracture of T11 vertebra: Status: Acute (5) Acute exacerbation of chronic obstructive pulmonary disease: Status: Acute (6) Lung cancer: Status: Chronic Qualifiers: Laterality: unspecified laterality Lung location: unspecified part of lung Qualified Code(s): C34.90 - Malignant neoplasm of unspecified part of unspecified bronchus or lung (7) Constipation, slow transit: Status: Chronic (8) 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 Miller consulted, notified He is recommending outpatient pain management by Dr. Bass We will add bowel regimen along opioids We will follow up with orthopedic further recommendations Patient's Port-A-Cath has not been flushing, Dr. Merritt is planning for elective removal, blood culture and sputum culture positive for gram-negative rocío, contamination to be ruled out, repeat blood cultures negative, afebrile no worsening of leukocytosis Sinus tachycardia and bilateral pulmonary embolism, start anticoagulation which was held in anticipation of Port-A-Cath removal Acute hypoxia without respiratory failure Mild COPD exacerbation secondary to atelectasis Currently on 2 to 3 L of cannula DuoNeb, flutter valve Incentive spirometer History of prostate cancer Progression of lung cancer Advance diet to consistent carb sliding scale DVT prophylaxis: Therapeutic Lovenox Attestations Medical Necessity Statement*: Continue medical management Time Spent in Patient Care: less than 15 minutes Coding Level of Care Code Acute Television Presenter for Chg Fwd Diagnoses Compression fx, lumbar spine S32.000A Compression fracture of T10 vertebra S22.070A Nausea & vomiting R11.2 Compression fracture of T11 vertebra S22.080A Acute exacerbation of chronic obstructive pulmonary disease J44.1 Lung cancer C34.90 Laterality: unspecified laterality Lung location: unspecified part of lung Constipation, slow transit K59.01 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
--- NOTE | 2021-03-18 15:59 | PM.CONSULT ---
Providers/Reason For Consult Consulting Physician/Specialty*: Orthopedics Reason for Consult*: Back Pain Attending Physician: Dipti Acosta MD Primary Care Provider: MARIAMA Stanton History of Present Illness History of Present Illness Oswaldo Khan is a 75 year old male with Hx of multiple fractures in Thoracic and Lumbar Spine. He reports having Kyphoplasties by Dr Miller in the past with a recent T10 Kyphoplasty by Dr Bass. He reports less pain in the middle of his back but continues to report Low Back Pain. He denies any new injuries. Continues to wear occasionally the TLSO brace. reports all low Back pain with sharp, stabbing pain. rest helps slightly. He has not f/u with Dr. Bass since his procedure on 03/14/21. He was admitted to [facility] and we were consulted for his back pain. Patient denies Fevers or chills. No drainage from incision in mid back. Extensive review patents PMH, PSH,Meds,Allergies, SH,FH and ROS was completed. Review of Systems General: Reports: 10 or more systems reviewed and unremarkable except in HPI and below Musc: Denies: joint warmth All/Imm: Denies: acute wheezing Meds/Allergies Home Medications and Allergies Home Medications Medication Instructions Recorded Confirmed Last Taken Type omeprazole 20 mg PO DAILY 01/25/21 03/14/21 01/25/21 09:00 History Stiolto Respimat 2 puff INHALATION DAILY 01/26/21 03/14/21 01/25/21 History capecitabine See Rx Instructions .ROUTE .COMPLEX 01/26/21 03/14/21 Unknown History capecitabine [Xeloda] See Rx Instructions .ROUTE .COMPLEX 01/26/21 03/14/21 Unknown History prednisone 20 mg PO DAILY 01/26/21 03/14/21 03/06/21 History albuterol sulfate 2 inh INHALATION Q6H PRN #8.5 g 01/31/21 03/14/21 03/07/21 Rx oxycodone 10 mg tablet 10 mg PO Q6H PRN 30 Days #120 tab 03/07/21 03/14/21 Unknown Rx miscellaneous medical supply #1 ea 03/11/21 03/14/21 Unknown Rx Spiriva Respimat 1 puff INHALATION DAILY 03/14/21 03/14/21 Unknown History docusate sodium [Stool Softener] 100 mg PO DAILY 03/14/21 03/14/21 03/13/21 History lisinopril 40 mg PO DAILY 03/14/21 03/14/21 Unknown History ondansetron HCl 4 mg PO Q8H PRN 03/14/21 03/14/21 Unknown History polyethylene glycol 3350 17 g PO BID 03/14/21 03/14/21 Unknown History psyllium husk [Daily Fiber] 0.4 - 0.8 g PO DAILY 03/14/21 03/14/21 Unknown History Allergies Allergy/AdvReac Type Severity Reaction Status Date / Time No Known Allergies Allergy Verified 03/14/21 11:42 Current Medications Current Medications Generic Name Dose Route Start Last Admin Trade Name Freq PRN Reason Stop Dose Admin Albuterol/Ipratropium 3 ml 03/14/21 23:18 03/18/21 11:36 Ipratropium-Albuterol 3 Ml Neb INHALATION 3 ml QID.RESPIRATORY MARTÍNEZ Administration Apixaban 10 mg 03/16/21 21:00 03/17/21 08:48 Apixaban 5 Mg Tablet PO 03/23/21 20:59 10 mg BID@0900,2100 MARTÍNEZ Administration Budesonide 0.5 mg 03/16/21 20:00 03/18/21 08:25 Budesonide 0.5 Mg/2 Ml Neb INHALATION 0.5 mg BID.RESPIRATORY MARTÍNEZ Administration Docusate Sodium 100 mg 03/15/21 09:00 03/18/21 08:52 Docusate Sodium 100 Mg Capsule PO 100 mg BID MARTÍNEZ Administration Sodium Chloride 1,000 mls @ 75 mls/hr 03/16/21 10:45 03/18/21 06:42 Sodium Chloride 0.9% IV 75 mls/hr .[id number] MARTÍNEZ Administration Piperacillin Sod/Tazobactam 50 mls @ 12.5 mls/hr 03/16/21 13:00 03/18/21 13:07 Sod 3.375 gm/ Sodium Chloride IV Infused Q8H MARTÍNEZ Infusion Vancomycin/PEG/NADA/Lysine/Water 1,250 mg in 250 mls @ 250 mls/hr 03/16/21 11:00 03/18/21 13:07 Vancocin IV Infused Q12H MARTÍNEZ Infusion Lactulose 20 gm 03/17/21 12:00 03/18/21 12:02 Lactulose Oral Liq 20 Gm/30 Ml Udc PO 20 gm Q6H MARTÍNEZ Administration Morphine Sulfate 4 mg 03/14/21 23:50 03/17/21 02:51 Morphine 4 Mg/Ml Sdv 1 Ml IVP 4 mg Q4H PRN Administration Severe Pain after oxycodone Ondansetron HCl 4 mg 03/14/21 21:45 03/17/21 22:39 Ondansetron 4 Mg Tablet PO 4 mg Q8H PRN Administration Nausea And Vomiting Oxycodone HCl 10 mg 03/14/21 23:49 03/18/21 10:56 Oxycodone 5 Mg Ir Tab/Cap PO 10 mg Q6H PRN Administration severe pain first Pantoprazole Sodium 40 mg 03/15/21 09:00 03/18/21 08:[address] 40 Mg Tablet PO 40 mg DAILY MARTÍNEZ Administration Polyethylene Glycol 17 gm 03/15/21 09:00 03/18/21 08:53 Polyethylene Glycol 3350 Pkt 17 Gm PO 17 gm BID MARTÍNEZ Administration PFSH Acute PFSH: Medical History Aspiration pneumonia BPH loc w urin obs/LUTS Elevated PSA Essential (primary) hypertension H/O colon cancer, stage III Lung cancer Myalgia Nocturia Prostate CA Urinary retention Urinary urgency Surgical History History of liver biopsy / Percutaneous abscess drainage Port-A-Cath in place S/P colon resection 2015 ([facility]) -- sigmoid resection for colon cancer / cholecystectomy / incidental appendectomy / umbilical hernia repair Family History Mother , 62 CAD (coronary artery disease) Diabetes Father , 74 Cancer Colon Social History Quit status (tobacco): has tried quititng Second hand smoke exposure: Yes Smoking risk assessment/counseling performed?: No Alcohol intake: never Desire information about alcohol rehabilitation?: No Counseling given: No Desire information about substance/drug rehabilitation?: No Counseling given: No Adopted: No Caregiver/support person: No Lives independently: Yes Household members: none Housing: House Marital status: Current occupational status: retired History of recent travel: No Current gender identity: Male Dietary Habits: Current diet type/program: regular Caffeine: Yes Caffeine intake frequency: coffee Number of coffee servings: 3 Safety: Seatbelt use: always Helmet use: No Drive intoxicated or ride with intoxicated delivery driver/customer service?: never Vitals/I&O/Wt Last Vital Signs Temp 98.1 F 03/18/21 15:14 Pulse 99 03/18/21 15:14 Resp 18 03/18/21 15:14 BP 105/69 03/18/21 15:14 Pulse Ox 94 03/18/21 15:14 03/18/21 03/18/21 03/18/21 06:59 14:59 22:59 Intake Total 1300 / 2718.75 450 / 450 Output Total 460 / 860 Balance 840 / 1858.75 450 / 450 Weight last 48 hrs Weight 164 lb 4 oz Weight 167 lb 4.8 oz Physical Exam Narrative: EXAM NARRATIVE: AO x 3 with good general appearance, normal mood and affect. Very difficult of hearing. Mild pain with palpation throughout Lumbar region, Sutures present in THoracic region and appear clean and dry. No signs of infection. Fires in all motor groups with 5/5 strength in BUE, BLE. hands and feet are warm with good cap refill in all digits, normal sensation to light touch. calves are supple. Wiggles and digits on hands and feet Const: COMMON NORMALS: patient oriented x3 HENMT: COMMON NORMALS: normocephalic HEAD & SCALP: normocephalic Resp: COMMON NORMALS: normal respiratory effort Cardio: COMMON NORMALS: regular rate and regular rhythm RATE: regular rate RHYTHM: regular rhythm GI: COMMON NORMALS: Soft to palpation PALPATION: Yes Soft to palpation : COMMON NORMALS: Yes no CVA tenderness BLADDER/KIDNEY EXAM: Yes no CVA tenderness Back/Pelvis: COMMON NORMALS: no CVA tenderness Neuro: COMMON NORMALS: patient oriented x3, moves all extremities and no focal motor deficits Psych: COMMON NORMALS: cooperative APPEARANCE: Yes grossly normal Skin: NARRATIVE SKIN EXAM: nylon sutures in mid back Data Micro: Micro: Microbiology 03/16/21 13:45 Gram Stain - Final Sputum - Expector ated Sputum Sputum Culture - F inal Pseudomonas aer uginosa 03/16/21 13:45 Legionella Urinary Antigen - Final Urine,Clean Catch Urine Culture - Fi nal Bacterial Antigens - Final 03/16/21 10:57 Blood Culture - Pr eliminary Blood NEGATIVE TO STACEY E 03/16/21 10:59 Blood Culture - Pr eliminary Blood NEGATIVE TO STACEY E 03/16/21 14:50 MRSA Culture - Fin al Nose A&P Assessment and plan (1) Compression fx, lumbar spine: Patient will continue to wear TLSO brace and mobilize as tolerated. No bending, Lifting >10lbs or excessive twisting. F/U with Dr Bass in [address] Miller and agrees with above stated plan. Status: Acute (2) Compression fx, thoracic spine: Status: Acute Qualifiers: Encounter type: subsequent encounter Thoracic vertebra fracture level: T11 Fracture healing: with routine healing Qualified Code(s): S22.080D - Wedge compression fracture of T11-T12 vertebra, subsequent encounter for fracture with routine healing Coding Level of Care Code Acute Contracting Executive for Chg Fwd Diagnoses Compression fx, lumbar spine S32.000A Compression fx, thoracic spine S22.080D Encounter type: subsequent encounter Thoracic vertebra fracture level: T11 Fracture healing: with routine healing
[2021-03-18] MEDS: enoxaparin 80 mg/0.8 mL Syringe 70 MG SUBCUT (16:08)
--- NOTE | 2021-03-18 19:43 | PC.NURSE ---
i reported high pulse 105 to nurse
[2021-03-19] VITALS (9 sets, daily range): BP systolic 108–137; BP diastolic 64–86; PULSE 87–104; RESP 16–21; TEMP 36.6–37; O2SAT 86–97
--- NOTE | 2021-03-19 00:16 | NUR.SHIFT ---
i reported high pulse 102 to nurse
[2021-03-19] MEDS: piperacillin-tazobactam 3.375 GM in sodium chloride 0.9% (plus) 50 ML IV ×2 (00:28→08:05)
[2021-03-19] MEDS: lactulose oral liq 20 gm/30 mL UDC PO (00:28)
--- NOTE | 2021-03-19 03:46 | PC.NURSE ---
i reported high pulse 104 to nurse
[2021-03-19] MEDS: enoxaparin 80 mg/0.8 mL Syringe 70 MG SUBCUT (04:33)
[2021-03-19 06:50] LABS: Basophils # 0.1 10^3/uL (0.0-0.1); Basophils % 0.8 %; Eosinophils # 0.4 10^3/uL (0.0-0.8); Hematocrit 36.5 % (42.0-52.0); Hemoglobin 12.1 g/dL (11.7-16.6); Lymphocytes # 1.1 10^3/uL (0.8-4.8); Lymphocytes % 14.8 %; Mean Corpuscular HGB Conc 33.2 g/dL (30.0-36.0); Mean Corpuscular Hemoglobin 28.4 pg (28.0-34.0); Mean Corpuscular Volume 85.7 fl (80-94); Mean Platelet Volume 9.4 fL (7.4-10.4); Monocytes # 0.6 10^3/uL (0.2-0.9); Monocytes % 7.2 %; Neutrophils # 5.48 10^3/uL (1.8-7.7); Neutrophils % 71.8 %; Nucleated Red Blood Cells % 0 %; Platelet Count 246 10^3/cmm (130-400); Red Blood Count 4.26 10^6/uL (4.1-5.3); Red Cell Distribution Width 15.6 % (12.1-15.1); White Blood Count 7.6 10^3/uL (4.0-10.0)
[2021-03-19 07:10] LABS: Blood Urea Nitrogen 11 mg/dL (8-23); Calcium 8.1 mg/dL (8.5-10.5); Carbon Dioxide 19 mmol/L (22-29); Chloride 104 mmol/L (98-107); Glucose 81 mg/dL (65-115); Osmolality Calculated 278 mOsm/kg (285-295); Sodium 135 mmol/L (136-145)
[2021-03-19 07:18] LABS: Procalcitonin 0.05 ng/mL (0-0.5)
[2021-03-19] MEDS: pantoprazole DR 40 mg Tablet PO (08:07)
--- NOTE | 2021-03-19 09:25 | PC.SOCIAL ---
IMM Update pg 2 of IMM updated and reviewed w/ patient. Copy provided.
[2021-03-19] MEDS: sodium chloride 0.9% 1,000 ML 75 ML IV (12:49)
[2021-03-19] MEDS: vancomycin 1,250 MG/250 ML PIGGYBACK 250 MG IV (12:50)
[2021-03-19] MEDS: oxyCODONE 5 mg IR Tab/Cap 10 MG PO (15:00)
--- NOTE | 2021-03-19 15:00 | P.DS_ITS ---
Discharge Providers Date of Admission: 03/14/21 18:06 Date of Discharge: March 19, 2021 Attending Provider at Admission: Rosa Taylor MD Attending Provider at Discharge: Dipti Acosta MD Primary Care Provider: MARIAMA Stanton Diagnoses at Discharge Discharge Diagnosis (1) Compression fx, lumbar spine: Status: Acute (2) Compression fx, thoracic spine: Status: Acute Qualifiers: Encounter type: subsequent encounter Fracture healing: with routine healing Thoracic vertebra fracture level: T11 Qualified Code(s): S22.080D - Wedge compression fracture of T11-T12 vertebra, subsequent encounter for fracture with routine healing Reason for Visit Reason for Visit: N/V/ BACK PAIN/ DIFFICULTY BREATHING Hospital Course Hospital Course History of Present Illness by Dr. Claudia Chacon Bill is a 75 year old male with past medical history of hypertension, colon cancer status post sigmoid resection, lung cancer, prostate cancer aspiration pneumonia presented to the ER today with complaint of nausea vomiting. He states that he had back surgery done a week ago for the second time. From operative notes it is evident that patient had T10 kyphoplasty with biopsy done due to T12 vertebral compression fracture on March 07, 2021. Patient states that he has been having dry heaving nausea vomiting and he did take Zofran for it but it did not really help. He was convinced by his family to come to the hospital and therefore he did. He has no other symptoms at this time. He does not have any chest pain, abdominal pain, leg pain. He does endorse a little bit of shortness of breath and states he is on a water pill at home but did not take it today. He is unsure of the name of the medication. He says his feet have been more swollen today as well. Echo from June this year shows grade 1 diastolic dysfunction with normal systolic EF. Patient is an active smoker and smokes daily. He is on albuterol and Spiriva and Stiolto at home. He takes lisinopril for high blood pressure. He states that every time he tries to take his pain tablets on an empty stomach he starts having nausea and that is what he believes happened today as well. He denies a cough at this time. Denies a fever. ED course: Blood pressure 123/70, respiratory 21, temperature 97.5, pulse rate 112, pulse ox 97%. On 2 L nasal cannula. Does not use any oxygen at home. Chest x-ray showed chronic interstitial changes in the right base. CT chest abdomen pelvis was done which showed new mild osteoporotic compression fracture T12, L1, L2 since 01/25/2021. Prior vertebral compression fractures with vertebroplasty at T7, T8, T9, T11. Increase in size of bilateral pulmonary metastatic nodules. Slight increase in size of the right hilar soft tissue mass since 01/25/2021. Consistent with progression of metastatic disease. Subsegmental bilateral lower lobe pulmonary emboli disease. Due to their small size these may be asymptomatic. ER physician told me that he spoke to nurse practitioner at surgeon's office who performed surgery a week ago and was told that there is no contraindication to anticoagulation at this time for this patient. Patient was given one-time full dose Lovenox. He was also ordered 1 L bolus of fluids and 4 mg morphine given x2. He was also given magnesium 2 g IV. Hospital course Patient was admitted for management of sinus tachycardia, hypoxia related to acute small segmental pulmonary embolism. He does have underlying cancer, chest imaging showed progression of lung cancer with lung nodules which are larger as compared to prior study he does have history of prostate cancer as well. He was managed as COPD exacerbation. Initially required broad-spectrum antibiotics, blood culture showed gram-negative rocío however I did review it with the micro lab, they think it is environmental contaminant, he remained afebrile, leukocytosis did not worsen during hospitalization, sputum did show Pseudomonas(received Levaquin at the time of discharge). For his T12 L1-L2 acute osteoporotic compression fracture Dr. Miller/orthopedic service was consulted who recommended outpatient pain management with Dr. Bass. Patient did well with physical therapy walked about 200 feet, because of his excruciating pain he might qualify for a hospital bed at the time of discharge. Patient does not want to go to any correction. Sinus tachycardia did improve with fluid hydration, this was secondary to underlying PE, at the time of discharge she will get Eliquis he did finish therapeutic anticoagulating regimen for 5-6 days during his hospitalization Of note, patient remained noncompliant with his TLSO brace which was recommended by Dr. Miller. His Port-A-Cath subclavian port is not draining, Dr. Merritt is planning to remove Port-A-Cath outpatient electively. Physical Exam Narrative: EXAM NARRATIVE: Patient sitting comfortably in his recliner Saturating well on 3 L nasal cannula No active chest complain of shortness of breath No audible stridor or wheezing Abdomen soft Nonfocal neuro exam Very hard of hearing No active distress S1, S2 No joint swelling Discharge Data Data Completed and Pending: Completed Studies During Hospitalization Category Date Time Status CT angio chest w abd pel w con Urge nt Cat Scan 03/14/21 13:50 Completed XR KUB portable 7 [id number] Stat Exams 03/17/21 15:56 Completed XR chest 1V jean-paul ble [id number] Routine Exams 03/18/21 08:02 Completed XR chest 1V jean-paul ble [id number] Urgent Exams 03/14/21 11:56 Completed CV. echo complete * [id number] Routine Ultrasound 03/15/21 19:26 Completed Pending at discharge Category Date Time Status Blood Culture Sta t Lab 03/14/21 14:58 Results Blood Culture Sta t Lab 03/16/21 10:57 Results Vancomycin Trough Timed Lab 03/19/21 22:00 Ordered Labs from last 24 hours 03/19/21 03/19/21 03/19/21 05:43 05:43 05:43 WBC 7.6 RBC 4.26 Hgb 12.1 Hct 36.5 L MCV 85.7 MCH 28.4 MCHC 33.2 RDW 15.6 H Plt Count 246 MPV 9.4 Neut % (Auto) 71.8 Lymph % (Auto) 14.8 [place] % (Auto) 7.2 Eos % (Auto) 5.0 Baso % (Auto) 0.8 Neut # (Auto) 5.48 Lymph # (Auto) 1.1 [place] # (Auto) 0.6 Eos # (Auto) 0.4 Baso # (Auto) 0.1 Nucleated RBC % (a uto) 0 Nucleated RBCs # 0.0 Sodium 135 L Potassium 4.0 Chloride 104 Carbon Dioxide 19 L Anion Gap 16.0 BUN 11 Creatinine 0.5 L GFR Calculation Not Reportable Glucose 81 Calculated Osmolal ity 278 L Calcium 8.1 L Procalcitonin 0.05 Vitals: Last Vital Signs Temp 98.0 F 03/19/21 11:11 Pulse 100 03/19/21 11:11 Resp 18 03/19/21 11:11 BP 135/80 03/19/21 11:11 Pulse Ox 94 03/19/21 11:11 Discharge Plan Discharge Patient Disposition: Home Condition: Stable Prescriptions: New Eliquis 5 mg tablet 5 mg PO BID Qty: 60 RF: 5 levofloxacin 750 mg tablet 750 mg PO DAILY 7 Days Qty: 7 RF: 0 albuterol sulfate 90 mcg/actuation HFA aerosol inhaler 2 inh inhalation Q6H Qty: 8.5 RF: 0 oxycodone 5 mg capsule 5 mg PO Q8H Qty: 30 RF: 0 Senexon-S 8.6-50 mg tablet 1 tab-cap PO DAILY PRN (Reason: constipation) Qty: 30 RF: 0 oxycodone 5 mg tablet 5 mg PO Q6H PRN (Reason: pain) Qty: 30 RF: 0 Continued oxycodone 10 mg tablet 10 mg PO Q6H PRN (Reason: pain) 30 Days Qty: 120 RF: 0 (DME) miscellaneous medical supply Misc See Rx Instructions .Route Qty: 1 RF: 0 ondansetron HCl 4 mg tablet 4 mg PO Q8H PRN (Reason: Nausea And Vomiting) RF: 0 Stool Softener 100 mg Capsule 100 mg PO DAILY RF: 0 polyethylene glycol 3350 17 gram powder in packet 17 g PO BID RF: 0 lisinopril 40 mg tablet 40 mg PO DAILY RF: 0 Spiriva Respimat 1.25 mcg/actuation mist 1 puff inhalation DAILY RF: 0 Daily Fiber 0.4 gram capsule 0.4 - 0.8 g PO DAILY RF: 0 omeprazole 20 mg Capsule,Delayed Release(Dr/Ec) 20 mg PO DAILY RF: 0 prednisone 20 mg tablet 20 mg PO DAILY RF: 0 capecitabine [Xeloda] 500 mg tablet See Rx Instructions .ROUTE .COMPLEX RF: 0 capecitabine 150 mg tablet See Rx Instructions .ROUTE .COMPLEX RF: 0 Stiolto Respimat 2.5-2.5 mcg/actuation mist 2 puff inhalation DAILY RF: 0 albuterol sulfate 90 mcg/actuation HFA aerosol inhaler 2 inh inhalation Q6H PRN (Reason: shortness of breath or wheezing) Qty: 8.5 RF: 0 Discharge Orders: Discharge Order (Routine); Ordered 03/19/21 Ordered By: Dipti Acosta Other Ambulatory Orders: DME: Oxygen (Order) Location: None Selected Ordered By: Dipti Acosta DME: Walker (Order) Location: None Selected Ordered By: Rosa Taylor Referrals: [facility] [Outside] Malik Merritt MD [Physician] - 2 weeks (Removal of port) Millicent Mejia, STONE PROCESSING MACHINE OPERATOR-C [Primary Care Provider] - 03/28/21 10:30 am Damion Bass MD [Physician] - 1-3 days (PLEASE CALL FOR APPOINTMENT FOR PAIN MANAGEMENT) Discharge Diet: As Directed Discharge Activity: Increase activity as tolerated, Use walker/crutches as instructed and As per PT/OT instructions Patient Instructions: Albuterol (By breathing) (ProAir, AccuNeb, Proventil, Proventil..., Oxycodone, Rapid Release (By mouth), Levofloxacin (By mouth) (Levaquin, Levaquin Leva-melony), Apixaban (By mouth) (Eliquis), Senna (By mouth), Pulmonary Embolism (DC), Vertebral Compression Fracture (DC), Opioid Safety Discharge Attestations Time Spent in Discharge Care*: less than 30 min Quality Metrics Clinical Quality Measures During this hospital stay, did patient experience: None Coding Level of Care Code Acute Chg FW DC note Diagnoses Compression fx, lumbar spine S32.000A Compression fx, thoracic spine S22.080D Encounter type: subsequent encounter Fracture healing: with routine healing Thoracic vertebra fracture level: T11
== END 2021-03-19 17:52 | disposition home health service (06) | DRG 176 ==
LOC: ER 22:44 → MEDSURG 03-15 09:32
PROVIDERS: Admitting Provider Internal Medicine; Emergency Provider Emergency Medicine; PCP Nurse Practitioner; Visit Provider Internal Medicine
DX: I26.94 Multiple subsegmental thrombotic pulmonary emboli without acute cor pulmonale (principal); M80.08XA Age-related osteoporosis with current pathological fracture, vertebra(e), initial encounter for fracture; I50.30 Unspecified diastolic (congestive) heart failure; J44.1 Chronic obstructive pulmonary disease with (acute) exacerbation; C78.02 Secondary malignant neoplasm of left lung; C78.01 Secondary malignant neoplasm of right lung; I26.99 Other pulmonary embolism without acute cor pulmonale; M80.08XD Age-related osteoporosis with current pathological fracture, vertebra(e), subsequent encounter for fracture with routine healing; R00.0 Tachycardia, unspecified; R09.02 Hypoxemia; I11.0 Hypertensive heart disease with heart failure; R11.2 Nausea with vomiting, unspecified; H91.90 Unspecified hearing loss, unspecified ear; B96.5 Pseudomonas (aeruginosa) (mallei) (pseudomallei) as the cause of diseases classified elsewhere; K59.01 Slow transit constipation; R59.0 Localized enlarged lymph nodes; Z85.038 Personal history of other malignant neoplasm of large intestine; Z85.46 Personal history of malignant neoplasm of prostate; Z90.49 Acquired absence of other specified parts of digestive tract; Z90.79 Acquired absence of other genital organ(s); Z79.891 Long term (current) use of opiate analgesic; Z79.899 Other long term (current) drug therapy; Z80.0 Family history of malignant neoplasm of digestive organs; Z95.828 Presence of other vascular implants and grafts; Z91.19 Patient's noncompliance with other medical treatment and regimen; Z98.890 Other specified postprocedural states; Z87.01 Personal history of pneumonia (recurrent)
CPT/HCPCS: 36415; 71045; 71275; 74018; 74177; 80048; 80053; 80202; 81001; 83605; 83735; 83880; 84100; 84145; 84443; 84484; 85025; 85610; 86140; 86403; 87040; 87070; 87077; 87086; 87186; 87205; 87426; 87449; 87635; 87641; 93005; 93306; 94640; 96365; 96372; 96375; 96376; 97116; 97162; 97530; 97760; 99285; J0456; J1650; J1956; J2270; J2543; J2765; J2920; J2997; J3370; J3475; J7030; J7040; J7050; J7626; L0456; Q0162; Q9967

== ENCOUNTER 2021-04-02 06:30 | Outpatient (RCR) | payer MEDICARE, MEDICAID, SELFPAY ==
--- NOTE | 2021-04-04 15:13 | ONC FU_ITS ---
follow up note Patient: Oswaldo Khan Unit #: [id number]: 1945 Dicatated By: Paula Singh M.D.Date of Visit:Apr 02, 2021 Onc Med Follow-up/Prog Note History of Present Illness: Mr. Khan is a 75-year-old gentleman with history of abdominal pain and rectal bleed underwent colonoscopy and was found to have a rectal mass. A biopsy was obtained and it confirmed adenocarcinoma. Mr Khan then underwent low anterior resection on 03/05/2017. The final pathology report showed invasive adenocarcinoma , tumor invades perirectal adipose and 1 out of 18 lymph nodes was positive with extranodal extension and no loss of nuclear expression of MMR protein . Mr Khan also has history of elevated PSA. On 03/12/2017 his PSA was 35.20. As per patient he has seen Dr. Sunil Martinez , urologist, who is following him and CT scan of abdomen pelvis done on 03/19/2017 showed some prominent retroperitoneal lymph nodes somewhat more prominent than in 2013 Mr Khan took combined chemoradiation for 3 days the first week but then accidentally pulled his [place] cath and sustained urethral injury. He was evaluated by Dr. Mratinez and underwent cystoscopy exam and reinsertion of [place] cath, during this time combined chemoradiation therapy was on hold. He resumed 4 weeks after . Patient was advised to take Xeloda daily for 5 days per week during radiation therapy. His Xeloda daily on the days of radiation only was held for a few days due to persistent diarrhea. He concluded his chemoradiation on 11/03/2017. The diarrhea resolved at that time. Mr. Khan was advised to pursue adjuvant chemotherapy with FOLFOX. had a long discussion regarding the role of adjuvant chemotherapy. Mr Khan agreed to get Port-A-Cath placement but then at the last minute, he changed his mind. Since that time though, he has agreed to pursue the recommended adjuvant chemotherapy. He did agree to port placement. He completed 2 cycles of modified FOLFOX as of 03/04/2018. At his 03/16/2018 appointment, he stated had been having increased abdominal pain and decreased energy. He stated that he did not complete the full 2 days of the fluorouracil pump last one and this he felt like it was making me feel pretty bad . CT scan of the abdomen was done on on 03/19/2018 show stable rectosigmoid anastomosis with no recurrent or adjacent adenopathy. Moderate diffuse constipation. At the patient's request and his refusal to continue with 5-FU infusion, it was opted to change the chemotherapy plan of care to XELOX on 03/23/2018 and with the plan to give him 6 cycles. Mr. Khan had tolerated it well. 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 He completed 5/6 cycles. At his request, Adjuvant chemotherapy with Xelox concluded on 07/05/2018. CT scan of abdomen pelvis done on 09/23/2018 showed no acute findings but 1.3 cm nodule in the right lower lobe of the lung. CT PET scan done on 11/06/2018 showed enlarged prostate with diffusely increase uptake Malignant appearing right lung nodules, most likely from colonic carcinoma Malignant mediastinal lymph nodes, most likely from colonic carcinoma No evidence for local prostate metastatic nodes. Normal activity at rectal anastomosis. Mr Khan had followup in August [address] Esquivel, [employer] [facility] [employer]. A bronchoscopy was obtained and Mr Khan was diagnosed with sarcoidosis. This was treated with some success but follow-up CT scan of chest done on August 30, 2019 showed evidence of interval progression of disease with bilateral pulmonary nodules. The largest nodule in the right lower lobe posteriorly and right suprahilar with narrowing of right upper lobe bronchus and numerous additional new and progressive pulmonary nodules throughout both lungs right hilar lymphadenopathy. The patient underwent bronchoscopy and endobronchial ultrasound-guided transbronchial needle aspiration of station 11 R, showed significant macrophages and histiocytes but no malignancy. but there was a concern about possibility of malignancy so patient underwent second bronchoscopy on October 28, 2019 which showed a fungating mass was seen at the orifice of right upper lobe bronchus with complete occlusion of airways. The right middle lobe and right lower lobe bronchi were examined up to third subsegmental with no abnormality. Biopsy was obtained came back positive for metastatic colorectal adenocarcinoma as immunohistochemistry stain were positive for CK20 and CDX2. Mr Khan was started on systemic chemotherapy with a Avastin/FOLFIRI on November 16, 2019. Next generation/gene sequencing was ordered and on December 19, 2019, it reported HER-2/peggy negative and says it was not possible to calculate tumor mutational burden and MSI/MMR for the sample because the sequencing data did not reach the minimum depth of coverage required to provide a result on these biomarkers. Follow-up PET/CT from 02/18/2020 reports pulmonary nodules seen on the prior study were improved on the 02/18/2020 study. The index nodule in the right lower lobe that previously measured 2.7 x 1.8 cm with an SUV of 5.5 now measures 1.4 cm with an SUV of 3.2. The other right upper and left lung nodules are similarly improved. Increasing activity is present in the multiple FDG positive mediastinal nodes; as before, these are most consistent with sarcoidosis. These nodules are distributed in the right paratracheal, inferior right perihilar, subcarinal, prevascular and right hilar territories. The previously described right. Rectal node is unchanged in size but has an SUV of 4.2 up from 2.3 previously and consistent with recurrence. Rectal activity is prominent but is most likely physiologic. At that time, his last treatment was on 02/27/2020. As treatment had been on hold due to elevated blood pressure his blood pressure has been 195/110 last visit and is 189/104 despite increasing his lisinopril to 10 mg daily.Continued with amlodipine 5 mg p.o. daily He was also complaining of sigificant headaches, so an MRI scan of the brain was ordered to rule out brain mets. The MRI was done on April 03, 2020 and showed no evidence of metastatic disease to brain and no other acute abnormality seen. Mr Khan has been noncompliant with his chemotherapy as he has skipped many scheduled chemotherapy treatments in the past. An example of his most recent noncompliance; his chemo was given on February 27, 2020 and he did return to the office until April 13, 2020, at that time he was scheduled for chemotherapy on April 16, 2020, but patient did not come. He did eventually resume chemotherapy on April 30, 2020. His last chemotherapy prior to April 30, 2020 was February 27, 2020. His last chemotherapy since April 30, 2020 was on May 28, 2020. He has missed his appointment for several reasons on his part such as just did not feel like coming???sick at stomach , he did realize he was getting chemotherapy that day and had not planned accordingly, etc. For his visit today his last chemotherapy was given on May 28, 2020. His last chemotherapy with 5-FU irinotecan and Avastin was given on May 28, 2020. He has had cardiac work-up with [facility]. He has had a stress test that is negative for cardiac disease. Follow-up CT PET scan done on July 28, 2020 showed the lateral right lower lobe nodule demonstrated ongoing positive response to therapy, now subcentimeter in size, with minimal FDG activity. The extensive mediastinal adenopathy seen previously now minimally FDG positive, with exception of the right hilar node which is now has an SUV of 6, down from 13.6 previously. The right perirectal node has SUV of 3.4 and is unchanged in size, indicating stable disease. No new lesion seen. He has had persistent frontal headaches. He was given oral antibiotic for presumed sinusitis with that his headaches did improve. Mr. Khan had a MRI of the brain with and without contrast on 04/05/2020 which reported no evidence of any intracranial enhancements or metastatic disease. There was mild small vessel changes and moderate parenchymal volume loss but no restricted diffusion to suggest acute ischemia. He has had persistent headaches and some concern that this could have been due to the palonosetron given his premedications. However since he started just Avastin and Xeloda August 22, 2020, his headaches have persisted. He is also complaining of progressive shortness of breath, but it is noted that he reports that he isstill smoking about pack a day. Mr Khan has not been too keen to continue systemic chemotherapy as he has just started feeling better-gradually since his full last chemotherapy dose was last given on May 28, 2020., Follow-up CT PET scan done on November 24, 2020 shows stable bilateral pulmonary nodules, remain subcentimeter in size with minimal FDG activity. No significant change in right hilar node. Minimal progression of right perirectal node which is slightly prominent with SUV of 4.5, a new T6 compression fracture, Subsequently , patient underwent MRI scan of thoracic spine on December 18, 2020 which shows wedge-shaped compression fractures are acute to subacute and diffuse increased signal throughout T7 and T8 vertebral body with very minimal extension into posterior elements. Approximately 40% compression deformity without retropulsion. No enhancement or associated soft tissue mass seen. c/o persistent mid back pain with no radiation to lower extremity, urine no urine or stool incontinence, patient underwent MRI scan of thoracic spine on December 18, 2020 which shows wedge-shaped compression fractures are acute to subacute and diffuse increased signal throughout T7 and T8 vertebral body with very minimal extension into posterior elements. Approximately 40% compression deformity without retropulsion. No enhancement or associated soft tissue mass seen. Patient was referred to orthopedics but as per orthopedic office patient was no-show but patient said he did not get any call from orthopedics office. We will reschedule him for treatment Underwent CT PET scan on March 23, 2021 which shows marginal improvement in the right hilar lymph node, now with SUV 5.3 compared to 7 previously right perirectal adenopathy is minimally improved now with SUV of 2.6. The right lower lobe, nodule that is previously subcentimeter in size FDG negative now 1.4 cm with SUV of 4.2. New malignant activity is present in the enlarging posterior left lower lobe and right lower lobe nodules measuring up to 1.3 cm. Other subcentimeter nodules are more prominent since prior study. Last dose of chemotherapy with Xeloda and Avastin was given on December 31, 2020, Patient has been noncompliant and also off and on hospital visits for low back pain due to compression fracture Came for follow-up, complaining of lower back pain requesting pain medication, as per patient he is being followed by orthopedics, now kyphoplasty of vertebra is being considered. Otherwise no jaundice, no abdominal pain, no nausea or vomiting, no diarrhea, patient said his appetite is not good, and losing some weight. Medications: DULoxetine HCl 1 Capsule (of 20 mg) Capsule Delayed Release Particles Oral daily, Flomax 1 Tablet (of 0.4 mg) Capsule Oral daily, HYDROcodone-Acetaminophen 1 - 2 Tablet (of 10-325 mg) Oral q 4 hours PRN, Ibuprofen 3 Tablet (of 200 mg) Oral daily PRN, Lisinopril (40 mg) Tablet Oral daily, predniSONE 1 Tablet (of 20 mg) Oral daily, Xeloda 2 Tablet (of 500 mg) Oral b.i.d., Xeloda 2 Tablet (of 150 mg) Oral b.i.d. Allergies: No Known Allergies. Review of Systems: Review of Systems is not available for this patient. Vital Signs: Performed on Apr 02, 2021 13:07 Height - 70.00 in Temperature - 97.1 F (LOW) Pulse - 123 /min (HIGH) Respiration - 18 /min BP - 89/60 mm(hg) (LOW) O2 Sat - 92 % (LOW) Pain - 7 Fatigue - 10 Performance Status: 2 - Ambulatory/capable of all self-care, unable to perform any work activities. Up and about more than 50% of waking hours. (ECOG) Physical Examination: ENMT - No mouth sores, no thrush, no jaundice, Respiratory - Lungs are clear to auscultation, Cardiovascular - Regular rate and rhythm of heart, Abdomen - Soft, bowel sounds present, Extremities - No visible edema. Lab/Imaging: Most recent lab results are not available for this patient. Impression: Invasive adenocarcinoma of upper rectum status post APR on 03/05/2017 final pathology showed tumor size 5.5 x 5.4 cm low-grade, tumor invades perirectal adipose p T3, lymphovascular invasion present, no perineural invasion seen 1 out of 18 positive lymph nodes N1a , extranodal extension present N1 stage IIIA No loss of nuclear expression of MMR protein Elevated PSA, on 03/12/2017 it was 35.20 with prostate enlargement, being followed by Dr. Martinez. s/p chemoradiation with Xeloda as chemosensitizer. till 11/03/17 discussed with patient regarding the role of adjuvant chemotherapy in stage IIIa rectal cancer, as literature has shown adjuvant chemotherapy improves disease-free survival. Patient has been reluctant to consider chemotherapy because of severe diarrhea during chemoradiation for rectal CA. He was assured that we will adjust/modify his adjuvant chemotherapy to make it tolerable. Patient, now agreed to get port placement and for adjuvant chemotherapy modified FOLFOX every 2 weeks ???12. All the side effect and possible benefits were discussed in detail again and patient expressed understanding. Mr Khan agreed. He was referred back to Dr. Merritt for Port-A-Cath placement and began his first cycle of FOLFOX on 02/09/2018 .Patient developed abdominal pain for which he underwent CT scan of abdomen on 03/19/2018 showed moderate constipation, and stable rectosigmoid anastomosis with no recurrent mass or adjacent adenopathy and bilateral lower lobe pulmonary nodules are stable since 02/03/2017. No evidence of metastatic disease elsewhere. Following day patient had large bowel movement and since then no more abdominal pain. Patient expressed intolerance to 5-FU infusion chemotherapy and also consider it inconvenient so requesting Xeloda pills instead of 5-FU infusion. His treatment plan was changed to XELOX beginning 03/23/2018. He has tolerated it well thus far. He completed 5 of the planned [address] PET scan done on 11/06/2018 showed prostate is enlarged, measuring 6 cm in diameter with diffusely increased FDG activity, most intense in the central prostate. Normal tracer activity at the rectal anastomosis There are 2 pulmonary nodules in the right lower lobe and one in the right upper lobe, the index nodule in the right lower lobe measuring 1.1 x 1.6 cm with SUV of 3.5. Most consistent with metastatic disease, likely from colonic primary. Multiple hypermetabolic mediastinal lymph nodes are present, consistent with metastatic disease, in the inferior right perihilar 1.9 cm, 5.2 SUV. Subcarinal, prevascular, right paratracheal, 1.9 cm, 6.8 SUV. Right hilar territories. Subcentimeter nodes are also noted in the superior right paratracheal region. Too small to characterize. Mr. Khan had established care with Dr. Esquivel in pulmonology. A bronchoscopy was performed and he was found to have sarcoidosis which was treated with some success however a follow-up CT of the chest done on August 29, 2019 showed interval progression of disease with bilateral pulmonary nodules with the largest nodule in the right lower lobe posteriorly. There was activity in the right suprahilar with narrowing of the right upper lobe bronchus and numerous additional new and progressive pulmonary nodules throughout both lungs. There was right hilar lymphadenopathy. He underwent another bronchoscopy and endobronchial ultrasound-guided transbronchial needle aspiration of station 11 R. This showed significant macrophages and histiocytes but no malignancy. However given his history there was concern about the possibility of malignancy therefore he underwent a second bronchoscopy on October 28, 2019. This did show a fungating mass at the orifice of the right upper lobe bronchus with complete occlusion of both airways. The right middle lobe and right lower lobe bronchi were examined up to a third subsegmental with no abnormality. A biopsy was obtained and did report positive for metastatic colorectal adenocarcinoma. Immunohistochemistry stains were positive for CK20 and CDX2. Mr. Khan was advised to pursue pallitave chemotherapy with FOLFOX Avastin. He began his first dose on November 16, 2019. Follow-up PET/CT from 02/18/2020 reports pulmonary nodules seen on the prior study were improved on the 02/18/2020 study. The index nodule in the right lower lobe that previously measured 2.7 x 1.8 cm with an SUV of 5.5 now measures 1.4 cm with an SUV of 3.2. The other right upper and left lung nodules are similarly improved. Increasing activity is present in the multiple FDG positive mediastinal nodes; as before, these are most consistent with sarcoidosis. These nodules are distributed in the right paratracheal, inferior right perihilar, subcarinal, prevascular and right hilar territories. The previously described right. Rectal node is unchanged in size but has an SUV of 4.2 up from 2.3 previously and consistent with recurrence. Rectal activity is prominent but is most likely physiologic. patient resumed his systemic chemotherapy on April 30, 2020 and received next dose on May 28, 2020 and then after that did not take further treatment due to 1 or other reasons subsequently underwent follow-up CT PET scan on May 30, 2020 which shows improvement in the right lower lobe pulmonary nodule. Improvement on the resolution of uptake in mediastinal lymph nodes. Stable FDG positive right perirectal node. Patient declined to continue current systemic therapy with Avastin/FOLFIRI but agreed to take oral Xeloda/Avastin so, at patient's request, his Avastin/FOLFIRI, was discontinued after last dose given on May 28, 2020 and he was switched to oral Xeloda 625 mg per metered squared twice daily day 1 through 14 along with Avastin 7.5 mg/kg on day 1 and then repeat cycle every 3 weeks on 08/22/2020. Follow-up CT PET scan done on November 24, 2020 shows tiny, bilateral pulmonary nodules seen previously are unchanged on current study. Right hilar lymph node is stable with SUV of 7,. No significant increase from 6 on previous study. The right perirectal node is slightly more prominent on the current study with SUV of 4.5 consistent with mild progression and a new T6 vertebral body compression fracture Plan: Discussed with patient regarding his follow-up CT PET scan report which shows mixed response, minimal improvement in the right hilar and right perirectal lymph nodes and enlarging bilateral pulmonary nodules, no abnormal FDG activity consistent with progression. Clinically, patient is in mild to moderate distress due to chronic lower back pain due to compression fracture, now being considered for kyphoplasty, and patient is requesting pain medication, will give him prescription for that As far as metastatic colorectal cancer is concerned, his follow-up CT PET scan shows mixed response and last chemotherapy with Xeloda/Avastin was given on December 31, 2020, since then patient has been missing his follow-up appointment because of back pain and requiring multiple hospital visits and at times, being noncompliant., Case was discussed with patient and caregiver and his son on the phone and at this point we will discontinue Avastin as patient is going for surgical procedure moreover he does not want to take intravenous treatment rather prefer oral chemotherapy as maintenance., As patient is undergoing surgery in a week or 2, will continue to hold his oral Xeloda he will return to clinic in 1 month with CBC CMP and at that time we will resume his oral Xeloda, 2 weeks on 1 week off as maintenance therapy As per patient's son, patient was recently diagnosed with pulmonary embolism, now on anticoagulation, will obtain records and review Signed By: Paula Singh M.D. <<Signature on File>>
== END 2021-04-05 23:59 | disposition home or self-care (01) ==
LOC: ONCMED 06:30
PROVIDERS: PCP Nurse Practitioner; Visit Provider Internal Medicine Hematology & Oncology
DX: C19 Malignant neoplasm of rectosigmoid junction (principal); C78.01 Secondary malignant neoplasm of right lung; C78.02 Secondary malignant neoplasm of left lung; C61 Malignant neoplasm of prostate; R59.0 Localized enlarged lymph nodes; M48.56XA Collapsed vertebra, not elsewhere classified, lumbar region, initial encounter for fracture; Z79.899 Other long term (current) drug therapy
CPT/HCPCS: 99214

== ENCOUNTER 2021-04-10 17:03 | Emergency (ER) | payer MEDICARE, MEDICAID, SELFPAY ==
[2021-04-10 17:10] VITALS: BMI 21.5
[2021-04-10 17:44] LABS: Basophils # 0.1 10^3/uL (0.0-0.1); Basophils % 0.5 %; Eosinophils # 0.1 10^3/uL (0.0-0.8); Eosinophils % 0.9 %; Hematocrit 41.3 % (42.0-52.0); Hemoglobin 13.5 g/dL (11.7-16.6); Lymphocytes # 2.5 10^3/uL (0.8-4.8); Mean Corpuscular HGB Conc 32.7 g/dL (30.0-36.0); Mean Corpuscular Hemoglobin 27.7 pg (28.0-34.0); Mean Corpuscular Volume 84.6 fl (80-94); Mean Platelet Volume 9.6 fL (7.4-10.4); Monocytes # 0.8 10^3/uL (0.2-0.9); Monocytes % 8.3 %; Neutrophils # 6.46 10^3/uL (1.8-7.7); Nucleated Red Blood Cells % 0 %; Platelet Count 360 10^3/cmm (130-400); Red Blood Count 4.88 10^6/uL (4.1-5.3); Red Cell Distribution Width 15.2 % (12.1-15.1)
--- NOTE | 2021-04-10 18:00 | CTR_ITS ---
PROCEDURE INFORMATION: Exam: CT Chest Without Contrast; Diagnostic Exam date and time: 04/10/2021 6:00 PM Age: 75 years old Clinical indication: Other: Back pain; Shortness of breath; Prior surgery; Additional info: Eval for cancer in abd+esophag TECHNIQUE: Imaging protocol: Diagnostic computed tomography of the chest without contrast. Total images: 519 Radiation optimization: All CT scans at this facility use at least one of these dose optimization techniques: automated exposure control; mA and/or kV adjustment per patient size (includes targeted exams where dose is matched to clinical indication); or iterative reconstruction. COMPARISON: 1. CT abdomen pelvis wo con [id number] 01/29/2021 12:[address] angio chest w abd pel w con 03/14/2021 2:15 PM RADIATION DOSE METRICS: Total DLP (mGy-cm): 1862.69 FINDINGS: Tubes, catheters and devices: Left Infusaport catheter. Lungs: No visible significant interval change in the appearance of the bilateral hematogenous metastatic disease. No findings suggesting active interstitial or alveolar airspace disease of pneumonitis/pneumonia. Pleural spaces: No pneumothorax. No pleural effusion. Heart: No cardiomegaly. No visible pericardial effusion. Coronary artery disease. Aorta: The thoracic aorta is nonaneurysmal. Arteriosclerosis. Lymph nodes: No interval change. Bones/joints: No grossly visible acute osseous abnormality. Osteoporosis. No visible osteolytic or osteoblastic destructive process. Old right rib fractures. Previous vertebroplasties. Right suprahilar tumor mass volume appears stable since 03/14/2021. Soft tissues: Cachexia. Other findings: Respiratory motion artifact. PROCEDURE INFORMATION: Exam: CT Abdomen And Pelvis Without Contrast Exam date and time: 04/10/2021 6:00 PM Age: 75 years old Clinical indication: Other: Back pain; Shortness of breath; Prior surgery; Additional info: Eval for cancer in abd+esophag TECHNIQUE: Imaging protocol: Computed tomography of the abdomen and pelvis without contrast. Radiation optimization: All CT scans at this facility use at least one of these dose optimization techniques: automated exposure control; mA and/or kV adjustment per patient size (includes targeted exams where dose is matched to clinical indication); or iterative reconstruction. COMPARISON: 1. CT abdomen pelvis wo con [id number] 01/29/2021 12:[address] angio chest w abd pel w con 03/14/2021 2:15 PM RADIATION DOSE METRICS: Total DLP (mGy-cm): 1862.69 FINDINGS: Liver: No visible hepatic mass or cystic structure. Rare calcified hepatic granuloma. Gallbladder and bile ducts: Status post cholecystectomy. Pancreas: Moderate atrophy of the pancreas. No visible pancreatic ductal ectasia. Spleen: Spleen with scattered calcified granulomas of antecedent disease. Spleen otherwise unremarkable. Adrenal glands: Adrenal glands unremarkable. Kidneys and ureters: No hydronephrosis or perinephric fluid. No visible nephrolithiasis or ureterolithiasis. Stomach and bowel: Nonobstructive bowel pattern. No visible significant adynamic or reactive ileus. No findings of significant diverticulosis coli or diverticulitis. Appendix: The appendix is not visualized. Intraperitoneal space: No visible pneumoperitoneum or intraperitoneal ascites. Vasculature: The abdominal aorta is nonaneurysmal. Moderate arterial sclerotic disease. Lymph nodes: No pathologically enlarged lymph nodes. Urinary bladder: Urinary bladder unremarkable. Reproductive: Prostate hypertrophy. Bones/joints: Since 03/14/2021 progression of superior endplate deformity and compression of T12, L1, and L2. New inferior endplate deformity L3. No retropulsion fragment identified. No visible osteolytic or osteoblastic destructive process. Osteoporosis. Soft tissues: Cachexia. CT/CT chest abd pel wo con IMPRESSION: No appreciable significant interval change metastatic lung carcinoma. IMPRESSION: Since 03/14/2021 progression of superior endplate deformity and compression of T12, L1, and L2. New inferior endplate deformity L3. No retropulsion fragment identified.
[2021-04-10 18:07] LABS: Alanine Aminotransferase 14 U/L (0-41); Albumin Level 3.1 g/dL (3.5-5.2); Alkaline Phosphatase 209 IU/L (40-130); Anion Gap 18.5 (5-19); Aspartate Amino Transferase 18 U/L (0-40); Blood Urea Nitrogen 38 mg/dL (8-23); Calcium 9.6 mg/dL (8.5-10.5); Carbon Dioxide 24 mmol/L (22-29); Chloride 95 mmol/L (98-107); Globulin 2.8 g/dL (1.3-4.6); Glucose 107 mg/dL (65-115); Lipase 14 U/L (13-60); Magnesium 1.9 mg/dL (1.7-2.3); Osmolality Calculated 286 mOsm/kg (285-295); Potassium 4.5 mmol/L (3.5-5.1); Sodium 133 mmol/L (136-145); Total Bilirubin 0.4 mg/dL (0.15-1.2); Total Protein 5.9 g/dL (6.6-8.7)
--- NOTE | 2021-04-10 18:32 | ED_ITS ---
HPI - General Adult General: Chief complaint: General Medical Stated complaint: GENERAL WEAKNESS/ BACK FX Time Seen by Provider: 04/10/21 17:07 History of Present Illness: HPI narrative: Patient is a 75-year-old male with a history of COPD, lung cancer who presents the emergency room for concerns of decreased p.o. intake and appetite for the last month. Patient was recently discharged from hospital 03/19/2021. Instead, patient has reported that he has not been able to hold anything down. Patient denies any fever/chills, cough, runny nose or throat. Patient reports that she has had increased shortness of breath. This has had a mild increase in oxygen requirement. Patient is on 3 L at baseline. No complaints of abdominal pain, chest pain, nausea/vomiting, diarrhea melena hematochezia. Onset: chronic Duration: ongoing Location:home Severity:moderate Associated symptoms: Reports dyspnea; Deny chest pain, nausea, rash, palpitations or vomiting Review of Systems Const: Denies: fever(s) or chills Eyes: Denies: change in vision ENMT: Denies: mouth pain Card: Denies: chest pain or palpitations Resp: Reports: dyspnea; Denies: non-productive cough GI: Reports: other (decreased appetite); Denies: abdominal pain, nausea, vomiting or diarrhea : Denies: dysuria Musc: Denies: extremity pain Skin/Breast: Denies: rash or new lesions Neuro: Denies: weakness in extremities Psych: Reports: other (Normal mood) Terry/Lymph: Denies: easy bruising PFS ED PFSH: Medical History Aspiration pneumonia BPH loc w urin obs/LUTS Compression fx, thoracic spine Constipation, slow transit Elevated PSA Essential (primary) hypertension H/O colon cancer, stage III Lung cancer Lung nodule seen on imaging study Mediastinal lymphadenopathy 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 Myalgia Nocturia Prostate CA Urinary retention Urinary urgency Surgical History History of liver biopsy / Percutaneous abscess drainage Port-A-Cath in place S/P colon resection 2015 ([place]) -- sigmoid resection for colon cancer / cholecystectomy / incidental appendectomy / umbilical hernia repair Family History Mother , 62 CAD (coronary artery disease) Diabetes Father , 74 Cancer Colon Social History Quit status (tobacco): has tried quititng Second hand smoke exposure: Yes Smoking risk assessment/counseling performed?: No Alcohol intake: never Desire information about alcohol rehabilitation?: No Counseling given: No Desire information about substance/drug rehabilitation?: No Counseling given: No Adopted: No Caregiver/support person: No Lives independently: Yes Household members: none Housing: House Marital status: Current occupational status: retired History of recent travel: No Current gender identity: Male Physical Exam Const: COMMON NORMALS: alert HENMT: COMMON NORMALS: atraumatic HEAD & SCALP: atraumatic MOUTH: moist mucous membranes not abnormal Eye: COMMON NORMALS: EOMs intact bilaterally and conjunctivae normal CONJUNCTIVA: Yes conjunctivae normal Neck/C-Spine: COMMON NORMALS: full ROM and supple Resp: COMMON NORMALS: normal respiratory effort and clear to auscultation bilaterally AUSCULTATION: clear to auscultation bilaterally Cardio: COMMON NORMALS: regular rate RATE: regular rate GI: COMMON NORMALS: Soft to palpation and non-tender PALPATION: Yes Soft to palpation Extremity: COMMON NORMALS: full ROM Neuro: SENSORIUM/ORIENTATION: Yes alert MOTOR EXAM: Abnormal motor strength present and Other motor observations present (no focla motor deficits) Psych: COMMON NORMALS: speech normal SPEECH: Yes normal speech MOOD & AFFECT: Yes euthymic mood Course Vital Signs: Vital signs: Vital Signs Temperature 98.2 F 04/10/21 21:07 Pulse Rate 93 04/10/21 22:09 Respiratory Rate 19 H 04/10/21 22:09 Blood Pressure 106/69 04/10/21 22:09 Pulse Oximetry 99 04/10/21 22:09 MDM - General Adult MDM Narrative: Medical decision making narrative: Patient is a 75-year-old male with history of COPD, lung CA who presents emergency room with decreased p.o. intake significant weight loss of 50 pounds in the last month. On arrival, patient appears to be thin. Exam findings otherwise unremarkable. Work-up: CBC, CMP, lipase Intervention: IVF, GI cocktail, and PO challenge Was able to tolerate p.o. without any difficulty. Initial, patient was noted to be tachycardic on arrival. However after 2 L, patient's heart rate improved to the low 80s. Patient continues to be satting well on room air on 3 L has not had increased oxygen requirement. Imaging studies negative for pulmonary embolism, patient is noted to have worsening back fractures. I have given patient follow up with our bilingual patient support caseworker to be seen by our PCP for rehydration. Patient aware of a call from our bilingual patient support caseworker to schedule for appointment(s) and verbalizes understanding of the importance of following up. I have given patient follow up with our bilingual patient support caseworker to be seen by our orthopedic spine team for worsening back fracture. Patient aware of a call from our bilingual patient support caseworker to schedule for appointment(s) and verbalizes understanding of the importance of following up. Findings on CT was discussed with Dr. Miller at 10:[address] Damian recommended patient can follow-up this week in clinic and he can walk-in tomorrow morning for evaluation. I have discussed this with patient and patient is aware that he can follow-up with Dr. Miller tomorrow morning. He tells me that he has a TLSO at home but has not been taking it. I have instructed patient to take it. Patient has no signs of spinal cord compression at this time. Rx percocet PRN pain Disposition: Discharge. Patient counseled regarding diagnostic impression, treatment plan. Patient given ED strict return precautions to return for continuation, worsening, or development of new symptoms. Instructed to f/u w/ PCP regarding symptoms today. Patient verbalized understanding. Lab Data: Labs: Lab Results 04/10/21 04/10/21 17:36 17:36 WBC 10.0 10^3/uL 10^3 /uL (4.0-10.0) RBC 4.88 10^6/uL 10^6 /uL (4.1-5.3) Hgb 13.5 g/dL g/dL (11.7-16.6) Hct 41.3 % L % (42.0-52.0) MCV 84.6 fl fl (80-94) MCH 27.7 pg L pg (28.0-34.0) MCHC 32.7 g/dL g/dL (30.0-36.0) RDW 15.2 % H % (12.1-15.1) Plt Count 360 10^3/cmm 10^3 /cmm (130-400) MPV 9.6 fL fL (7.4-10.4) Neut % (Auto) 65.0 % % Lymph % (Auto) 25.0 % % Canadian % (Auto) 8.3 % % Eos % (Auto) 0.9 % % Baso % (Auto) 0.5 % % Neut # (Auto) 6.46 10^3/uL 10^3 /uL (1.8-7.7) Lymph # (Auto) 2.5 10^3/uL 10^3/ uL (0.8-4.8) Canadian # (Auto) 0.8 10^3/uL 10^3/ uL (0.2-0.9) Eos # (Auto) 0.1 10^3/uL 10^3/ uL (0.0-0.8) Baso # (Auto) 0.1 10^3/uL 10^3/ uL (0.0-0.1) Nucleated RBC % (a uto) 0 % % Nucleated RBCs # 0.0 /100WBC /100W BC Sodium 133 mmol/L L mmol /L (136-145) Potassium 4.5 mmol/L mmol/L (3.5-5.1) Chloride 95 mmol/L L mmol/ L (98-107) Carbon Dioxide 24 mmol/L mmol/L (22-29) Anion Gap 18.5 (5-19) BUN 38 mg/dL H mg/dL (8-23) Creatinine 0.9 mg/dL mg/dL (0.7-1.2) GFR Calculation Not Reportable Glucose 107 mg/dL mg/dL (65-115) Calculated Osmolal ity 286 mOsm/kg mOsm/ kg (285-295) Calcium 9.6 mg/dL mg/dL (8.5-10.5) Magnesium 1.9 mg/dL mg/dL (1.7-2.3) Total Bilirubin 0.4 mg/dL mg/dL (0.15-1.2) AST 18 U/L U/L (0-40) ALT 14 U/L U/L (0-41) Alkaline Phosphata se 209 IU/L H IU/L (40-130) Total Protein 5.9 g/dL L g/dL (6.6-8.7) Albumin 3.1 g/dL L g/dL (3.5-5.2) Globulin 2.8 g/dL g/dL (1.3-4.6) Lipase 14 U/L U/L (13-60) Imaging Data^: Other Imaging: Radiologist's impression: [id number] [place], [place] [address]AG Scan ReportSigned Patient: Tomasz Khan #: [id number]: [id number]#:[id number]/Sex: 75 / MADM Date: 04/10/21Loc: ERRoom/Bed:Attending Dr: Ordering Provider/Ordering MD: Balwinder Shay MD Date of Service: 04/10/21 Procedure(s): CT chest abd pel wo con Accession Number(s): [id number] Report Number: [id number] PROCEDURE INFORMATION: Exam: CT Chest Without Contrast; Diagnostic Exam date and time: 04/10/2021 6:00 PM Age: 75 years old Clinical indication: Other: Back pain; Shortness of breath; Prior surgery; Additional info: Eval for cancer in abd+esophag TECHNIQUE: Imaging protocol: Diagnostic computed tomography of the chest without contrast. Total images: 519 Radiation optimization: All CT scans at this facility use at least one of these dose optimization techniques: automated exposure control; mA and/or kV adjustment per patient size (includes targeted exams where dose is matched to clinical indication); or iterative reconstruction. COMPARISON: 1. CT abdomen pelvis wo con [id number] 01/29/2021 12:[address] angio chest w abd pel w con 03/14/2021 2:15 PM RADIATION DOSE METRICS: Total DLP (mGy-cm): 1862.69 FINDINGS: Tubes, catheters and devices: Left Infusaport catheter. Lungs: No visible significant interval change in the appearance of the bilateral hematogenous metastatic disease. No findings suggesting active interstitial or alveolar airspace disease of pneumonitis/pneumonia. Pleural spaces: No pneumothorax. No pleural effusion. Heart: No cardiomegaly. No visible pericardial effusion. Coronary artery disease. Aorta: The thoracic aorta is nonaneurysmal. Arteriosclerosis. Lymph nodes: No interval change. Bones/joints: No grossly visible acute osseous abnormality. Osteoporosis. No visible osteolytic or osteoblastic destructive process. Old right rib fractures. Previous vertebroplasties. Right suprahilar tumor mass volume appears stable since 03/14/2021. Soft tissues: Cachexia. Other findings: Respiratory motion artifact. PROCEDURE INFORMATION: Exam: CT Abdomen And Pelvis Without Contrast Exam date and time: 04/10/2021 6:00 PM Age: 75 years old Clinical indication: Other: Back pain; Shortness of breath; Prior surgery; Additional info: Eval for cancer in abd+esophag TECHNIQUE: Imaging protocol: Computed tomography of the abdomen and pelvis without contrast. Radiation optimization: All CT scans at this facility use at least one of these dose optimization techniques: automated exposure control; mA and/or kV adjustment per patient size (includes targeted exams where dose is matched to clinical indication); or iterative reconstruction. COMPARISON: 1. CT abdomen pelvis wo con [id number] 01/29/2021 12:[address] angio chest w abd pel w con 03/14/2021 2:15 PM RADIATION DOSE METRICS: Total DLP (mGy-cm): 1862.69 FINDINGS: Liver: No visible hepatic mass or cystic structure. Rare calcified hepatic granuloma. Gallbladder and bile ducts: Status post cholecystectomy. Pancreas: Moderate atrophy of the pancreas. No visible pancreatic ductal ectasia. Spleen: Spleen with scattered calcified granulomas of antecedent disease. Spleen otherwise unremarkable. Adrenal glands: Adrenal glands unremarkable. Kidneys and ureters: No hydronephrosis or perinephric fluid. No visible nephrolithiasis or ureterolithiasis. Stomach and bowel: Nonobstructive bowel pattern. No visible significant adynamic or reactive ileus. No findings of significant diverticulosis coli or diverticulitis. Appendix: The appendix is not visualized. Intraperitoneal space: No visible pneumoperitoneum or intraperitoneal ascites. Vasculature: The abdominal aorta is nonaneurysmal. Moderate arterial sclerotic disease. Lymph nodes: No pathologically enlarged lymph nodes. Urinary bladder: Urinary bladder unremarkable. Reproductive: Prostate hypertrophy. Bones/joints: Since 03/14/2021 progression of superior endplate deformity and compression of T12, L1, and L2. New inferior endplate deformity L3. No retropulsion fragment identified. No visible osteolytic or osteoblastic destructive process. Osteoporosis. Soft tissues: Cachexia. CT/CT chest abd pel wo con IMPRESSION: No appreciable significant interval change metastatic lung carcinoma. IMPRESSION: Since 03/14/2021 progression of superior endplate deformity and compression of T12, L1, and L2. New inferior endplate deformity L3. No retropulsion fragment identified. Dictated By:Adonis Vang By:Adonis Vang Date/Time:04/10/21 1935DD/ 1800 [address] [id number] [place], [place] [address]BJ Scan ReportSigned Patient: Tomasz Khan #: [id number]: [id number]#:[id number]/Sex: 75 / MADM Date: 04/10/21Loc: ERRoom/Bed:Attending Dr: Ordering Provider/Ordering MD: Balwinder Shay MD Date of Service: 04/10/21 Procedure(s): CT angio chest PE protcl [id number] Accession Number(s): [id number] Report Number: [id number] PROCEDURE INFORMATION: Exam: CTA Chest With Contrast Exam date and time: 04/10/2021 9:23 PM Age: 75 years old Clinical indication: Cough and shortness of breath; Prior surgery; Surgery type: Port a cath. Liver biopsy. ; Patient HX: Cough with SOB. Sudden desaturation to 80 percent on room air while in er. History of metastatic cancer and thoracic compression FX. ; Additional info: Eval for pe TECHNIQUE: Imaging protocol: Computed tomographic angiography of the chest with contrast. 3D rendering (Not supervised by radiologist): MIP and/or 3D reconstructed images were created by the technologist. Total images: 878 Radiation optimization: All CT scans at this facility use at least one of these dose optimization techniques: automated exposure control; mA and/or kV adjustment per patient size (includes targeted exams where dose is matched to clinical indication); or iterative reconstruction. Contrast material: OMNI 350; Contrast volume: 74 ml; Contrast route: INTRAVENOUS (IV); COMPARISON: CT angio chest w abd pel w con 03/14/2021 2:15 PM RADIATION DOSE METRICS: Total DLP (mGy-cm): 1160.56 FINDINGS: Tubes, catheters and devices: Left Infusaport catheter. Pulmonary arteries: No grossly visible evidence of pulmonary embolism/pulmonary arterial thrombus. Aorta: The thoracic aorta is nonaneurysmal. No visible intimal flap or dissection. Arteriosclerosis. Lungs: No visible significant interval change in the appearance of the bilateral hematogenous metastatic disease. No findings suggesting active interstitial or alveolar airspace disease of pneumonitis/pneumonia. Pleural spaces: No pneumothorax. No pleural effusion. Heart: No cardiomegaly. No visible pericardial effusion. Coronary artery disease. Lymph nodes: No interval change. Bones/joints: No grossly visible acute osseous abnormality. Osteoporosis. No visible osteolytic or osteoblastic destructive process. Old right rib fractures. Previous vertebroplasties. Right suprahilar tumor mass volume appears stable since 03/14/2021. Soft tissues: Cachexia. Other findings: Respiratory motion artifact. CT/CT angio chest PE protcl [id number] IMPRESSION: 1. No grossly visible evidence of pulmonary embolism/pulmonary arterial thrombus. 2. No appreciable significant interval change metastatic lung carcinoma. Dictated By:Adonis Vang By:Adonis Vang Date/Time:04/10/212214DD/ 22 Discharge Plan Discharge Patient Disposition: Home Clinical Impression: Back fracture, Decrease in appetite, Abnormal weight loss Condition: Stable Prescriptions: New Percocet 5-325 mg tablet 1 tab PO Q8H PRN (Reason: pain) 3 Days Qty: 9 RF: 0 No Action scopolamine base 1 mg over 3 days patch 3 day 1 patch transdermal Q3D PRN (Reason: nausea and vomiting) Qty: 10 RF: 0 magnesium hydroxide [Milk of Magnesia] 400 mg/5 mL suspension 30 ml PO BID PRN (Reason: constipation) Qty: 400 RF: 0 carbamide peroxide [Debrox] 6.5 % drops 5 drp otic (ear) DAILY 4 Days Qty: 15 RF: 0 oxycodone 10 mg tablet 10 mg PO Q6H PRN (Reason: pain) 30 Days Qty: 120 RF: 0 (DME) miscellaneous medical supply Misc See Rx Instructions .Route Qty: 1 RF: 0 ondansetron HCl 4 mg tablet 4 mg PO Q8H PRN (Reason: Nausea And Vomiting) RF: 0 Stool Softener 100 mg Capsule 100 mg PO DAILY RF: 0 polyethylene glycol 3350 17 gram powder in packet 17 g PO BID RF: 0 lisinopril 40 mg tablet 40 mg PO DAILY RF: 0 Spiriva Respimat 1.25 mcg/actuation mist 1 puff inhalation DAILY RF: 0 Daily Fiber 0.4 gram capsule 0.4 - 0.8 g PO DAILY RF: 0 Eliquis 5 mg tablet 5 mg PO BID Qty: 60 RF: 5 albuterol sulfate 90 mcg/actuation HFA aerosol inhaler 2 inh inhalation Q6H Qty: 8.5 RF: 0 oxycodone 5 mg capsule 5 mg PO Q8H Qty: 30 RF: 0 Senexon-S 8.6-50 mg tablet 1 tab-cap PO DAILY PRN (Reason: constipation) Qty: 30 RF: 0 oxycodone 5 mg tablet 5 mg PO Q6H PRN (Reason: pain) Qty: 30 RF: 0 omeprazole 20 mg Capsule,Delayed Release(Dr/Ec) 20 mg PO DAILY RF: 0 prednisone 20 mg tablet 20 mg PO DAILY RF: 0 capecitabine [Xeloda] 500 mg tablet See Rx Instructions .ROUTE .COMPLEX RF: 0 capecitabine 150 mg tablet See Rx Instructions .ROUTE .COMPLEX RF: 0 Stiolto Respimat 2.5-2.5 mcg/actuation mist 2 puff inhalation DAILY RF: 0 albuterol sulfate 90 mcg/actuation HFA aerosol inhaler 2 inh inhalation Q6H PRN (Reason: shortness of breath or wheezing) Qty: 8.5 RF: 0 Discharge Orders: Discharge ED (Routine); Ordered 04/10/21 Ordered By: Balwinder Shay Referrals: Millicent Mejia, MANAGER DRILLING-C [Primary Care Provider] - Discharge Diet: Advance as tolerated Discharge Activity: Resume usual activity Patient Instructions: Weight Management (ED) Activity Restrictions/Additional Instructions: Our bilingual patient support caseworker will have you follow-up with [facility] in the next few days. You would be expected to have a phone call with our bilingual patient support caseworker who will put you on the schedule. Come back to the emergency room have any worsening pain, fever/chills, weakness in your arms or legs, any new or concerning complaints. Our bilingual patient support caseworker will have you follow-up with Orthopedics in the next few days for your back fractures. You would be expected to have a phone call with our bilingual patient support caseworker who will put you on the schedule. Coding Level of Care Code ED Underwater Roboticist for Izable Fwkelly Exam Comprehensive
[2021-04-10] MEDS: sodium chloride 0.9% 1,000 ML 999 ML IV (19:00)
[2021-04-10] MEDS: ondansetron 2 mg/ML SDV 2 mL 4 MG IVP (21:04)
[2021-04-10 21:05] VITALS: RESP 18
[2021-04-10] MEDS: morphine 4 mg/mL SDV 1 mL IVP (21:05)
[2021-04-10 21:07] VITALS: BP 101/68; PULSE 110; RESP 18; TEMP 36.8; O2SAT 91
[2021-04-10 21:19] VITALS: O2SAT 81
[2021-04-10 21:20] VITALS: RESP 18; O2SAT 89
--- NOTE | 2021-04-10 21:23 | CTR_ITS ---
PROCEDURE INFORMATION: Exam: CTA Chest With Contrast Exam date and time: 04/10/2021 9:23 PM Age: 75 years old Clinical indication: Cough and shortness of breath; Prior surgery; Surgery type: Port a cath. Liver biopsy. ; Patient HX: Cough with SOB. Sudden desaturation to 80 percent on room air while in er. History of metastatic cancer and thoracic compression FX. ; Additional info: Eval for pe TECHNIQUE: Imaging protocol: Computed tomographic angiography of the chest with contrast. 3D rendering (Not supervised by radiologist): MIP and/or 3D reconstructed images were created by the technologist. Total images: 878 Radiation optimization: All CT scans at this facility use at least one of these dose optimization techniques: automated exposure control; mA and/or kV adjustment per patient size (includes targeted exams where dose is matched to clinical indication); or iterative reconstruction. Contrast material: OMNI 350; Contrast volume: 74 ml; Contrast route: INTRAVENOUS (IV); COMPARISON: CT angio chest w abd pel w con 03/14/2021 2:15 PM RADIATION DOSE METRICS: Total DLP (mGy-cm): 1160.56 FINDINGS: Tubes, catheters and devices: Left Infusaport catheter. Pulmonary arteries: No grossly visible evidence of pulmonary embolism/pulmonary arterial thrombus. Aorta: The thoracic aorta is nonaneurysmal. No visible intimal flap or dissection. Arteriosclerosis. Lungs: No visible significant interval change in the appearance of the bilateral hematogenous metastatic disease. No findings suggesting active interstitial or alveolar airspace disease of pneumonitis/pneumonia. Pleural spaces: No pneumothorax. No pleural effusion. Heart: No cardiomegaly. No visible pericardial effusion. Coronary artery disease. Lymph nodes: No interval change. Bones/joints: No grossly visible acute osseous abnormality. Osteoporosis. No visible osteolytic or osteoblastic destructive process. Old right rib fractures. Previous vertebroplasties. Right suprahilar tumor mass volume appears stable since 03/14/2021. Soft tissues: Cachexia. Other findings: Respiratory motion artifact. CT/CT angio chest PE protcl [id number] IMPRESSION: 1. No grossly visible evidence of pulmonary embolism/pulmonary arterial thrombus. 2. No appreciable significant interval change metastatic lung carcinoma.
[2021-04-10] MEDS: iohexol 350 mg/mL 100 mL Btl IV (21:38)
[2021-04-10 22:09] VITALS: BP 106/69; PULSE 93; RESP 19; O2SAT 99
--- NOTE | 2021-04-11 09:42 | DCPLANNER ---
senior architect/design manager had message to schedule a follow up appointment for patient with ortho. senior architect/design manager called the ortho clinic, spoke with Marilyn, gave clinic patients information. senior architect/design manager was told that patients information would be printed and reviewed. Clinic will call patient with appointment information.
--- NOTE | 2021-04-11 10:20 | DCPLANNER ---
inpatient care manager rn had message to speak with patient about getting established with a primary care physician. inpatient care manager rn called and spoke with patients son, he stated that he would make the follow up appointment with primary care.
--- NOTE | 2021-04-18 08:07 | DCPLANNER ---
Patient had a follow up appointment scheduled for 04.16.21 with Hollis Pantoja at [facility] - patient did attend appointment.
== END 2021-04-10 22:51 | disposition home or self-care (01) ==
PROVIDERS: Emergency Provider Emergency Medicine; PCP Nurse Practitioner
DX: R63.4 Abnormal weight loss (principal); R63.0 Anorexia; S22.080G Wedge compression fracture of T11-T12 vertebra, subsequent encounter for fracture with delayed healing; S32.010G Wedge compression fracture of first lumbar vertebra, subsequent encounter for fracture with delayed healing; S32.020G Wedge compression fracture of second lumbar vertebra, subsequent encounter for fracture with delayed healing; X58.XXXD Exposure to other specified factors, subsequent encounter; F17.210 Nicotine dependence, cigarettes, uncomplicated
CPT/HCPCS: 71250; 71275; 74176; 80053; 83690; 83735; 85025; 96361; 96374; 96375; 99284; 99291; 99292; J2270; J2405; J7030; Q9967

== ENCOUNTER → 2021-04-16 14:04 | Outpatient (BNVA) | payer MEDICARE, MEDICAID, SELFPAY | PROVIDERS: PCP Nurse Practitioner; Visit Provider Physician Assistant | DX: X58.XXXA Exposure to other specified factors, initial encounter; S22.080A Wedge compression fracture of T11-T12 vertebra, initial encounter for closed fracture; S32.010A Wedge compression fracture of first lumbar vertebra, initial encounter for closed fracture; S32.020A Wedge compression fracture of second lumbar vertebra, initial encounter for closed fracture; S32.030A Wedge compression fracture of third lumbar vertebra, initial encounter for closed fracture; S32.040A Wedge compression fracture of fourth lumbar vertebra, initial encounter for closed fracture | CPT/HCPCS: 72070; 72100 ==

== ENCOUNTER 2021-04-17 10:32 | Emergency (ER) | payer MEDICARE, MEDICAID, SELFPAY ==
[2021-04-17 10:38] VITALS: BP 119/76; PULSE 94; RESP 15; TEMP 37.1; O2SAT 95
--- NOTE | 2021-04-17 10:59 | ED_ITS ---
HPI - Nausea/Vomiting/Diarrhea General: Chief complaint: Nausea/Vomiting/Diarrhea Stated complaint: WEAKNESS/ NAUSEA/ DRY HEAVES Time Seen by Provider: 04/17/21 10:36 History of Present Illness: HPI Narrative: Patient presents via ambulance with complaints of nausea and vomiting. Patient is very hard of hearing. Patient recently seen by oncology and orthopedics. Patient was scheduled to have an MRI done today to evaluate his chronic compression fractures. Patient is being treated for adenocarcinoma. Patient says he needs medication to help with his vomiting he is not able to keep much down he states. Patient denies any fever chills shortness of breath. Patient was worked up in the ER last week. Patient does not currently take any in the antinausea medication he states though there is a prescription for Zofran in his chart. Patient is also supposed be wearing his TLSO brace and does not have been on currently MD elicited complaint: nausea and vomiting Pertinent past history: other (Compression fractures and adenocarcinoma) Onset (ago): week(s) Associated nausea: Yes Associated abdominal pain: No Associated symtoms: Reports nausea; Denies anxiety, change in vision, chest pain or headache(s) Review of Systems Const: Denies: fever(s), chills or body aches Eyes: Denies: change in vision or blurry vision ENMT: Denies: throat pain or nasal congestion Card: Denies: chest pain or dyspnea on exertion Resp: Denies: dyspnea, productive cough or non-productive cough GI: Reports: nausea and vomiting : Denies: difficulty urinating Musc: Denies: extremity pain Skin/Breast: Denies: rash Neuro: Denies: headache(s) Psych: Denies: anxiety or depression Terry/Lymph: Denies: easy bruising PFSH ED PFSH: Medical History Aspiration pneumonia BPH loc w urin obs/LUTS Compression fx, thoracic spine Constipation, slow transit Elevated PSA Essential (primary) hypertension H/O colon cancer, stage III Lung cancer Lung nodule seen on imaging study Mediastinal lymphadenopathy 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 Myalgia Nocturia Prostate CA Urinary retention Urinary urgency Surgical History History of liver biopsy / Percutaneous abscess drainage Port-A-Cath in place S/P colon resection 2015 ([place]) -- sigmoid resection for colon cancer / cholecystectomy / incidental appendectomy / umbilical hernia repair Family History Mother , 62 CAD (coronary artery disease) Diabetes Father , 74 Cancer Colon Social History Quit status (tobacco): has tried quititng Second hand smoke exposure: Yes Smoking risk assessment/counseling performed?: No Alcohol intake: never Desire information about alcohol rehabilitation?: No Counseling given: No Desire information about substance/drug rehabilitation?: No Counseling given: No Adopted: No Caregiver/support person: No Lives independently: Yes Household members: none Housing: House Marital status: Current occupational status: retired History of recent travel: No Current gender identity: Male Physical Exam Narrative: EXAM NARRATIVE: Very difficult to communicate with patient due to his hearing deficit. Patient does relate a story to me that he is in nausea and vomiting over the last few weeks, weight loss, was scheduled for an MRI today, has seen orthopedic doc and awaiting what they want to do for him. Const: COMMON NORMALS: no acute distress, average body habitus and patient oriented x3 HENMT: COMMON NORMALS: normocephalic HEAD & SCALP: normal to inspection and normocephalic FACE & SINUS: normal facial exam GENERAL EAR: hearing grossly impaired Eye: COMMON NORMALS: conjunctivae normal GENERAL EYE: appearance normal, both eyes and all related structures CONJUNCTIVA: Yes conjunctivae normal Neck/C-Spine: COMMON NORMALS: no JVD Chest: COMMONS NORMALS: normal inspection of the chest Resp: COMMON NORMALS: normal respiratory effort and clear to auscultation bilaterally AUSCULTATION: clear to auscultation bilaterally Cardio: COMMON NORMALS: no JVD and regular rhythm RATE: tachycardic RHYTHM: regular rhythm GI: COMMON NORMALS: Normal to inspection, nondistended, normoactive bowel sounds present Extremity: COMMON NORMALS: normal to inspection and full ROM Neuro: COMMON NORMALS: patient oriented x3 Skin: NARRATIVE SKIN EXAM: Poor skin turgor Course Vital Signs: Vital signs: Vital Signs Temperature 98.7 F 04/17/21 10:38 Pulse Rate 96 04/17/21 11:58 Respiratory Rate 14 04/17/21 11:58 Blood Pressure 118/81 04/17/21 11:58 Pulse Oximetry 95 04/17/21 11:58 MDM - Nausea/Vomiting/Diarrhea MDM Narrative: Medical decision making narrative: Patient presents with nausea and vomiting most likely related to his treatment for his lung cancer and recent compression fracture and medication changes. He did not get his prescription filled for nausea and vomiting. Laboratory studies do not reveal any signi ficant difference from the ER studies he had done a week ago. He has no abdominal pain. Patient does not appear in acute distress verbalizes well and agrees with plan of getting medication prescription filled for nausea follow-up with his oncology, primary care and his orthopedic doctor. Lab Data: Labs: Lab Results 04/17/21 04/17/21 11:55 11:55 WBC 10.3 10^3/uL H 10 ^3/uL (4.0-10.0) RBC 5.29 10^6/uL 10^6 /uL (4.1-5.3) Hgb 14.8 g/dL g/dL (11.7-16.6) Hct 44.1 % % (42.0-52.0) MCV 83.4 fl fl (80-94) MCH 28.0 pg pg (28.0-34.0) MCHC 33.6 g/dL g/dL (30.0-36.0) RDW 14.9 % % (12.1-15.1) Plt Count 304 10^3/cmm 10^3 /cmm (130-400) MPV 9.8 fL fL (7.4-10.4) Neut % (Auto) 75.6 % % Lymph % (Auto) 17.5 % % [place] % (Auto) 5.3 % % Eos % (Auto) 0.6 % % Baso % (Auto) 0.6 % % Neut # (Auto) 7.76 10^3/uL H 10 ^3/uL (1.8-7.7) Lymph # (Auto) 1.8 10^3/uL 10^3/ uL (0.8-4.8) [place] # (Auto) 0.5 10^3/uL 10^3/ uL (0.2-0.9) Eos # (Auto) 0.1 10^3/uL 10^3/ uL (0.0-0.8) Baso # (Auto) 0.1 10^3/uL 10^3/ uL (0.0-0.1) Nucleated RBC % (a uto) 0 % % Nucleated RBCs # 0.0 /100WBC /100W BC Sodium 134 mmol/L L mmol /L (136-145) Potassium 4.4 mmol/L mmol/L (3.5-5.1) Chloride 97 mmol/L L mmol/ L (98-107) Carbon Dioxide 21 mmol/L L mmol/ L (22-29) Anion Gap 20.4 H (5-19) BUN 27 mg/dL H mg/dL (8-23) Creatinine 0.6 mg/dL L mg/dL (0.7-1.2) GFR Calculation Not Reportable Glucose 88 mg/dL mg/dL (65-115) Calculated Osmolal ity 283 mOsm/kg L mOs m/kg (285-295) Calcium 9.0 mg/dL mg/dL (8.5-10.5) Lipase 18 U/L U/L (13-60) Discharge Plan Discharge Patient Disposition: Home Clinical Impression: Decrease in appetite, Chronic nausea Condition: Stable Prescriptions: New Zofran 4 mg tablet 4 mg PO Q8H 3 Days Qty: 9 RF: 0 No Action scopolamine base 1 mg over 3 days patch 3 day 1 patch transdermal Q3D PRN (Reason: nausea and vomiting) Qty: 10 RF: 0 magnesium hydroxide [Milk of Magnesia] 400 mg/5 mL suspension 30 ml PO BID PRN (Reason: constipation) Qty: 400 RF: 0 carbamide peroxide [Debrox] 6.5 % drops 5 drp otic (ear) DAILY 4 Days Qty: 15 RF: 0 diazepam [Valium] 5 mg tablet 5 mg PO ONCE PRN (Reason: anxiety) 1 Days Qty: 5 RF: 0 oxycodone 10 mg tablet 10 mg PO Q6H PRN (Reason: pain) 30 Days Qty: 120 RF: 0 (DME) miscellaneous medical supply Misc See Rx Instructions .Route Qty: 1 RF: 0 ondansetron HCl 4 mg tablet 4 mg PO Q8H PRN (Reason: Nausea And Vomiting) RF: 0 Stool Softener 100 mg Capsule 100 mg PO DAILY RF: 0 polyethylene glycol 3350 17 gram powder in packet 17 g PO BID RF: 0 lisinopril 40 mg tablet 40 mg PO DAILY RF: 0 Spiriva Respimat 1.25 mcg/actuation mist 1 puff inhalation DAILY RF: 0 Daily Fiber 0.4 gram capsule 0.4 - 0.8 g PO DAILY RF: 0 Eliquis 5 mg tablet 5 mg PO BID Qty: 60 RF: 5 albuterol sulfate 90 mcg/actuation HFA aerosol inhaler 2 inh inhalation Q6H Qty: 8.5 RF: 0 oxycodone 5 mg capsule 5 mg PO Q8H Qty: 30 RF: 0 Senexon-S 8.6-50 mg tablet 1 tab-cap PO DAILY PRN (Reason: constipation) Qty: 30 RF: 0 oxycodone 5 mg tablet 5 mg PO Q6H PRN (Reason: pain) Qty: 30 RF: 0 omeprazole 20 mg Capsule,Delayed Release(Dr/Ec) 20 mg PO DAILY RF: 0 prednisone 20 mg tablet 20 mg PO DAILY RF: 0 capecitabine [Xeloda] 500 mg tablet See Rx Instructions .ROUTE .COMPLEX RF: 0 capecitabine 150 mg tablet See Rx Instructions .ROUTE .COMPLEX RF: 0 Stiolto Respimat 2.5-2.5 mcg/actuation mist 2 puff inhalation DAILY RF: 0 albuterol sulfate 90 mcg/actuation HFA aerosol inhaler 2 inh inhalation Q6H PRN (Reason: shortness of breath or wheezing) Qty: 8.5 RF: 0 Discharge Orders: Discharge ED (Routine); Ordered 04/17/21 Ordered By: Veto Erickson Discharge Diet: Advance as tolerated Discharge Activity: Increase activity as tolerated Activity Restrictions/Additional Instructions: Take medication as directed. Advance your diet slowly. Follow-up with your primary care, your cancer treatment doctor and orthopedic doctor in the next few days. Can return here or see your primary care provider if worsening of symptoms. Coding Level of Care Code ED Trust Manager Assistant for Izabel Fwkelly Exam Comprehensive
[2021-04-17] MEDS: sodium chloride 0.9% 1,000 ML 999 ML IV (11:52)
[2021-04-17] MEDS: ondansetron 2 mg/ML SDV 2 mL 4 MG IVP (11:53)
[2021-04-17 11:58] VITALS: BP 118/81; PULSE 96; RESP 14; O2SAT 95
[2021-04-17 12:06] LABS: Basophils # 0.1 10^3/uL (0.0-0.1); Basophils % 0.6 %; Eosinophils # 0.1 10^3/uL (0.0-0.8); Eosinophils % 0.6 %; Hematocrit 44.1 % (42.0-52.0); Hemoglobin 14.8 g/dL (11.7-16.6); Lymphocytes # 1.8 10^3/uL (0.8-4.8); Lymphocytes % 17.5 %; Mean Corpuscular HGB Conc 33.6 g/dL (30.0-36.0); Mean Corpuscular Volume 83.4 fl (80-94); Mean Platelet Volume 9.8 fL (7.4-10.4); Monocytes # 0.5 10^3/uL (0.2-0.9); Monocytes % 5.3 %; Neutrophils # 7.76 10^3/uL (1.8-7.7); Neutrophils % 75.6 %; Nucleated Red Blood Cells % 0 %; Platelet Count 304 10^3/cmm (130-400); Red Blood Count 5.29 10^6/uL (4.1-5.3); Red Cell Distribution Width 14.9 % (12.1-15.1); White Blood Count 10.3 10^3/uL (4.0-10.0)
[2021-04-17 12:32] LABS: Anion Gap 20.4 (5-19); Blood Urea Nitrogen 27 mg/dL (8-23); Carbon Dioxide 21 mmol/L (22-29); Chloride 97 mmol/L (98-107); Glucose 88 mg/dL (65-115); Lipase 18 U/L (13-60); Osmolality Calculated 283 mOsm/kg (285-295); Potassium 4.4 mmol/L (3.5-5.1); Sodium 134 mmol/L (136-145)
[2021-04-17 13:14] VITALS: BP 88/58; PULSE 102; O2SAT 92
== END 2021-04-17 13:16 | disposition home or self-care (01) ==
PROVIDERS: Emergency Provider Nurse Practitioner Family
DX: R11.0 Nausea (principal); R63.0 Anorexia; Z79.01 Long term (current) use of anticoagulants; I10 Essential (primary) hypertension; Z85.038 Personal history of other malignant neoplasm of large intestine; Z85.118 Personal history of other malignant neoplasm of bronchus and lung; Z85.46 Personal history of malignant neoplasm of prostate; Z85.048 Personal history of other malignant neoplasm of rectum, rectosigmoid junction, and anus; Z77.22 Contact with and (suspected) exposure to environmental tobacco smoke (acute) (chronic)
CPT/HCPCS: 80048; 83690; 85025; 96361; 96374; 99284; J2405; J7030

== ENCOUNTER 2021-05-07 14:01 | Emergency (ER) | payer MEDICARE, MEDICAID, SELFPAY ==
[2021-05-07 14:37] VITALS: BP 109/72; PULSE 112; RESP 16; TEMP 36.6; O2SAT 96
--- NOTE | 2021-05-07 17:34 | XRR_ITS ---
PROCEDURE INFORMATION: Exam: XR Complete Acute Abdomen Series Including Chest Exam date and time: 05/07/2021 5:34 PM Age: 75 years old Clinical indication: Nausea; Additional info: N/v TECHNIQUE: Imaging protocol: XR complete acute abdomen series, including 2 or more views of the abdomen and a single view chest. COMPARISON: CT chest abd pel wo con 04/10/2021 6:11 PM FINDINGS: Tubes, catheters and devices: Left chest port terminates in the left brachiocephalic vein. Lungs: No consolidation. Pleural spaces: Normal. No pleural effusions. No pneumothorax. Heart/Mediastinum: Normal. No cardiomegaly. Gastrointestinal tract: No bowel dilation. Fluid levels seen within the colon. Intraperitoneal space: Normal. No free air. Bones/joints: Kyphoplasty of multiple mid and lower thoracic vertebra. No acute fracture. Soft tissues: Normal. XR/XR acute abdomen series 53743 IMPRESSION: No signs of bowel dilation. Fluid levels seen within the colon.
[2021-05-07 17:38] VITALS: BP 119/87; PULSE 102; RESP 18; O2SAT 97
--- NOTE | 2021-05-07 17:46 | ED_ITS ---
HPI - Nausea/Vomiting/Diarrhea General: Chief complaint: Nausea/Vomiting/Diarrhea Stated complaint: RAPID WEIGHTLESS Time Seen by Provider: 05/07/21 17:34 History of Present Illness: 75-year-old male with a history of lung cancer, vertebral compression fractures, comes in today with persistent nausea and vomiting with weight loss for 1 month. Patient reports poor appetite and bilio us vomitus. Patient appears no acute distress. Patient appears chronically ill. Patient appears nontoxic. Patient appears in no pain at rest. Patient is hard of hearing. Patient's oncologist is . Patient has had treatment for his compression fractures. Associated nausea: Yes Associated symtoms: Reports nausea Review of Systems Const: Reports: change in weight GI: Reports: nausea and vomiting PFSH ED PFSH: Medical History (Updated 05/07/21 @ 19:30 by TONI Mahoney) Acid reflux Aspiration pneumonia BPH loc w urin obs/LUTS Compression fx, thoracic spine Constipation, slow transit Elevated PSA Essential (primary) hypertension H/O colon cancer, stage III Lung cancer Lung nodule seen on imaging study Mediastinal lymphadenopathy 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 Myalgia Nocturia Prostate CA Urinary retention Urinary urgency Surgical History History of liver biopsy / Percutaneous abscess drainage Port-A-Cath in place S/P colon resection 2016 ([place]) -- sigmoid resection for colon cancer / cholecystectomy / incidental appendectomy / umbilical hernia repair Family History Mother , 62 CAD (coronary artery disease) Diabetes Father , 74 Cancer Colon Social History Quit status (tobacco): has tried quititng Second hand smoke exposure: Yes Smoking risk assessment/counseling performed?: No Alcohol intake: never Desire information about alcohol rehabilitation?: No Counseling given: No Desire information about substance/drug rehabilitation?: No Counseling given: No Adopted: No Caregiver/support person: No Lives independently: Yes Household members: none Housing: House Marital status: Current occupational status: retired History of recent travel: No Current gender identity: Male Physical Exam Const: COMMON NORMALS: alert HENMT: COMMON NORMALS: normocephalic HEAD & SCALP: normocephalic MOUTH: Abnormal oral and palatal mucosa present other (parched) Eye: COMMON NORMALS: Equal, round and reactive pupils present and EOMs intact bilaterally PUPIL: Yes Equal, round and reactive pupils present Neck/C-Spine: COMMON NORMALS: full ROM Resp: COMMON NORMALS: normal respiratory effort and clear to auscultation bilaterally AUSCULTATION: clear to auscultation bilaterally Cardio: COMMON NORMALS: regular rate and regular rhythm RATE: regular rate RHYTHM: regular rhythm GI: COMMON NORMALS: Soft to palpation and non-tender PALPATION: Yes Soft to palpation Extremity: COMMON NORMALS: normal to inspection and full ROM Neuro: SENSORIUM/ORIENTATION: Yes alert Psych: COMMON NORMALS: normal affect Skin: COMMON NORMALS: no rashes or lesions noted GENERAL SKIN EXAM: no rashes or lesions noted Course Vital Signs: Vital signs: Vital Signs Temperature 97.8 F 05/07/21 14:37 Pulse Rate 102 H 05/07/21 17:38 Respiratory Rate 18 05/07/21 17:38 Blood Pressure 119/87 05/07/21 17:38 Pulse Oximetry 97 05/07/21 17:38 MDM - Nausea/Vomiting/Diarrhea Medical Decision Making 75-year-old male patient was brought in by family member, son, for concerns of poor appetite and episodes of nausea and vomiting. Patient also reports being out of his pain medication. Patient has a history of lung cancer and multiple compression fractures of the spine. On exam patient appears chronically ill but not toxic. Patient is alert and oriented. Patient reports poor appetite and persistent back pain with loss of 30 pounds. On exam abdomen is nontender to palpation. Bowel sounds are present. Skin is warm and dry. Differential diagnosis includes failure to thrive, cachexia related cancer, bowel obstruction. Laboratory values were similar to prior exam done 2 weeks ago. Acute abdominal series noted no bowel obstruction with some mild fluid levels in the colon this may suggest some chronic colitis. Plan to treat patient with failure to thrive. We will add Megace 20 mg twice a day to help with appetite. Patient be started on some mirtazapine 15 mg at at bedtime to help with appetite and concern for depression. Patient also be continued on ondansetron 4 mg 3 times a day for breakthrough nausea and vomiting to be used concurrently with scopolamine daily. I prescribed patient hydrocodone 5?325 for pain medication until he can follow-up with his primary provider. Reviewed with patient's family with recommendations for follow-up to discuss PEG tube placement if present plan does not seem to help with patient's weight loss. Family member reported understanding and agreed to plan. Lab Data : 05/07/21 18:14 05/07/21 18:14 Radiology Impressions Chest/Abdomen X-ray 05/07/21 17:34 IMPRESSION: No signs of bowel dilation. Fluid levels seen within the colon. Laboratory Results WBC 9.4 10^3/uL (4.0-10.0) 05/07/21 18:14 RBC 5.78 10^6/uL (4.1-5.3) H 05/07/21 18:14 Hgb 15.9 g/dL (11.7-16.6) 05/07/21 18:14 Hct 48.5 % (42.0-52.0) 05/07/21 18:14 MCV 83.9 fl (80-94) 05/07/21 18:14 MCH 27.5 pg (28.0-34.0) L 05/07/21 18:14 MCHC 32.8 g/dL (30.0-36.0) 05/07/21 18:14 RDW 15.6 % (12.1-15.1) H 05/07/21 18:14 Plt Count 291 10^3/cmm (130-400) 05/07/21 18:14 MPV 9.6 fL (7.4-10.4) 05/07/21 18:14 Neut % (Auto) 52.9 % 05/07/21 18:14 Lymph % (Auto) 38.2 % 05/07/21 18:14 [place] % (Auto) 6.7 % 05/07/21 18:14 Eos % (Auto) 1.3 % 05/07/21 18:14 Baso % (Auto) 0.6 % 05/07/21 18:14 Neut # (Auto) 4.97 10^3/uL (1.8-7.7) 05/07/21 18:14 Lymph # (Auto) 3.6 10^3/uL (0.8-4.8) 05/07/21 18:14 [place] # (Auto) 0.6 10^3/uL (0.2-0.9) 05/07/21 18:14 Eos # (Auto) 0.1 10^3/uL (0.0-0.8) 05/07/21 18:14 Baso # (Auto) 0.1 10^3/uL (0.0-0.1) 05/07/21 18:14 Nucleated RBC % (auto) 0 % 05/07/21 18:14 Nucleated RBCs # 0.0 /100WBC 05/07/21 18:14 Sodium 133 mmol/L (136-145) L 05/07/21 18:14 Potassium 3.7 mmol/L (3.5-5.1) 05/07/21 18:14 Chloride 94 mmol/L (98-107) L 05/07/21 18:14 Carbon Dioxide 21 mmol/L (22-29) L 05/07/21 18:14 Anion Gap 21.7 (5-19) H 05/07/21 18:14 BUN 19 mg/dL (8-23) 05/07/21 18:14 Creatinine 0.8 mg/dL (0.7-1.2) 05/07/21 18:14 GFR Calculation Not Reportable 05/07/21 18:14 Glucose 101 mg/dL (65-115) 05/07/21 18:14 Calculated Osmolality 278 mOsm/kg (285-295) L 05/07/21 18:14 Calcium 10.0 mg/dL (8.5-10.5) 05/07/21 18:14 Total Bilirubin 0.5 mg/dL (0.15-1.2) 05/07/21 18:14 AST 29 U/L (0-40) 05/07/21 18:14 ALT 39 U/L (0-41) 05/07/21 18:14 Alkaline Phosphatase 195 IU/L (40-130) H 05/07/21 18:14 Total Protein 6.3 g/dL (6.6-8.7) L 05/07/21 18:14 Albumin 3.6 g/dL (3.5-5.2) 05/07/21 18:14 Globulin 2.7 g/dL (1.3-4.6) 05/07/21 18:14 Lipase 20 U/L (13-60) 05/07/21 18:14 TSH 2.07 uIU/mL (0.27-4.20) 05/07/21 18:14 Urine Color Dark yellow (Yellow) 05/07/21 18:15 Urine Appearance Hazy (CLEAR) A 05/07/21 18:15 Urine pH 5 (5-7) 05/07/21 18:15 Ur Specific [place] 1.025 (1.005-1.030) 05/07/21 18:15 Urine Protein 1+ (Negative) H 05/07/21 18:15 Urine Glucose (UA) Norm (Normal) 05/07/21 18:15 Urine Ketones 2+ (Negative) H 05/07/21 18:15 Urine Blood Neg (Negative) 05/07/21 18:15 Urine Nitrate Negative (Negative) 05/07/21 18:15 Urine Bilirubin 2+ (Negative) H 05/07/21 18:15 Urine Urobilinogen 1 mg/dL (Negative) H 05/07/21 18:15 Ur Leukocyte Esterase Negative (Negative) 05/07/21 18:15 Urine RBC Rare /hpf (0-2) 05/07/21 18:15 Urine WBC Rare /hpf (0-5) 05/07/21 18:15 Ur Squamous Epith Cells 0-4 /hpf (0-5) H 05/07/21 18:15 Amorphous Sediment Not Reportable 05/07/21 18:15 Urine Bacteria None /hpf (NONE) 05/07/21 18:15 Urine Mucus 3+ /hpf 05/07/21 18:15 Discharge Plan Discharge Patient Disposition: Home Clinical Impression: Abnormal loss of weight, Adult failure to thrive syndrome, Lung cancer Condition: Stable Prescriptions: New mirtazapine 15 mg tablet,disintegrating 15 mg PO DAILY Qty: 30 0RF Rx Instructions: give at bedtime megestrol 20 mg tablet 20 mg PO BID Qty: 60 0RF ondansetron 4 mg tablet,disintegrating 4 mg PO TID PRN (Reason: nausea and vomiting) Qty: 15 0RF hydrocodone-acetaminophen 5-325 mg tablet 1 tab PO Q6H PRN (Reason: pain) Qty: 15 0RF No Action pantoprazole [Protonix] 40 mg tablet,delayed release (DR/EC) 40 mg PO DAILY Qty: 30 2RF scopolamine base 1 mg over 3 days patch 3 day 1 patch transdermal Q3D PRN (Reason: nausea and vomiting) Qty: 24 2RF magnesium hydroxide [Milk of Magnesia] 400 mg/5 mL suspension 30 ml PO BID PRN (Reason: constipation) Qty: 400 0RF carbamide peroxide [Debrox] 6.5 % drops 5 drp otic (ear) DAILY 4 Days Qty: 15 0RF oxycodone 10 mg tablet 10 mg PO Q6H PRN (Reason: pain) 30 Days Qty: 120 0RF Rx Instructions: may fill 30 days after previous prescription (rx filled 03/07/21 30/s) (DME) miscellaneous medical supply Misc See Rx Instructions .Route Qty: 1 0RF Rx Instructions: HOSPITAL BED WITH TRAPEZE BAR oxycodone 5 mg capsule 5 mg PO Q6H 10 Days Qty: 40 0RF Stiolto Respimat 2.5-2.5 mcg/actuation mist 2 puff inhalation DAILY Qty: 4 5RF tamsulosin 0.4 mg capsule 0.4 mg PO .at bedtime Qty: 90 3RF ondansetron HCl 4 mg tablet 4 mg PO Q8H PRN (Reason: Nausea And Vomiting) 0RF Stool Softener 100 mg Capsule 100 mg PO DAILY 0RF polyethylene glycol 3350 17 gram powder in packet 17 g PO BID 0RF lisinopril 40 mg tablet 40 mg PO DAILY 0RF Rx Instructions: to replace Lisinopril/ HCTZ combo Spiriva Respimat 1.25 mcg/actuation mist 1 puff inhalation DAILY 0RF Daily Fiber 0.4 gram capsule 0.4 - 0.8 g PO DAILY 0RF Eliquis 5 mg tablet 5 mg PO BID Qty: 60 5RF albuterol sulfate 90 mcg/actuation HFA aerosol inhaler 2 inh inhalation Q6H Qty: 8.5 0RF Senexon-S 8.6-50 mg tablet 1 tab-cap PO DAILY PRN (Reason: constipation) Qty: 30 0RF oxycodone 5 mg tablet 5 mg PO Q6H PRN (Reason: pain) Qty: 30 0RF prednisone 20 mg tablet 20 mg PO DAILY 0RF capecitabine [Xeloda] 500 mg tablet See Rx Instructions .ROUTE .COMPLEX 0RF Rx Instructions: 1,000mg po bid for 14 days then off for 7 days for a 21 day cycle (pt states not taken in several months pt states dr put this medication on hold medication on pts med list from [facility] at home) capecitabine 150 mg tablet See Rx Instructions .ROUTE .COMPLEX 0RF Rx Instructions: 300mg po bid for 14 days then off for 7 days for a 21 days cycle (pt states not taken in several months pt states dr put this medication on hold medication on pts med list from [facility] at home) Discharge Orders: Discharge ED (Routine); Ordered 05/07/21 Ordered By: Faizan Shea Discharge Diet: Advance as tolerated Discharge Activity: Increase activity as tolerated Patient Instructions: Cancer Cachexia (DC), Opioid Safety Activity Restrictions/Additional Instructions: Start medication. Give mirtazapine at bedtime to help with rest, depression, and appetite. Give megestrol 20 mg twice daily to increase appetite this may need to be adjusted for better efficacy. Use ondansetron 4 mg along with scopolamine patches to help control nausea. Follow-up with primary care for further treatment and consideration of PEG tube placing. Coding Level of Care Code ED Web User Experience Strategist for Izabel Fwd Exam Comprehensive
[2021-05-07] MEDS: ondansetron 4 MG Tablet PO (18:22)
[2021-05-07 18:34] LABS: Basophils # 0.1 10^3/uL (0.0-0.1); Basophils % 0.6 %; Eosinophils # 0.1 10^3/uL (0.0-0.8); Eosinophils % 1.3 %; Hematocrit 48.5 % (42.0-52.0); Hemoglobin 15.9 g/dL (11.7-16.6); Lymphocytes # 3.6 10^3/uL (0.8-4.8); Lymphocytes % 38.2 %; Mean Corpuscular HGB Conc 32.8 g/dL (30.0-36.0); Mean Corpuscular Hemoglobin 27.5 pg (28.0-34.0); Mean Corpuscular Volume 83.9 fl (80-94); Mean Platelet Volume 9.6 fL (7.4-10.4); Monocytes # 0.6 10^3/uL (0.2-0.9); Monocytes % 6.7 %; Neutrophils # 4.97 10^3/uL (1.8-7.7); Neutrophils % 52.9 %; Nucleated Red Blood Cells % 0 %; Platelet Count 291 10^3/cmm (130-400); Red Blood Count 5.78 10^6/uL (4.1-5.3); Red Cell Distribution Width 15.6 % (12.1-15.1); White Blood Count 9.4 10^3/uL (4.0-10.0)
[2021-05-07 18:38] LABS: Blood Urine Neg (Negative); Glucose Urine UA Norm (Normal); Ketones Urine 2+ (Negative); Protein Urine 1+ (Negative); Specific Gravity, Urine 1.025 (1.005-1.030); Urine Appearance Hazy (CLEAR); Urine Color Dark Yellow (Yellow); pH Urine 5 (5-7)
[2021-05-07 18:39] LABS: Add Urine Microscopic? YES; Bilirubin Urine 2+ (Negative); Leukocyte Esterase Urine Negative (Negative); Nitrate Urine Negative (Negative); Urobilinogen Urine 1 mg/dL (Negative)
[2021-05-07 18:53] LABS: Add Urine Culture? No; Mucus Urine 3+ /hpf; RBC Urine RARE /hpf (0-2); Squamous Epithelial Cell Urine 0-4 /hpf (0-5); WBC Urine RARE /hpf (0-5)
[2021-05-07 19:14] LABS: Alanine Aminotransferase 39 U/L (0-41); Albumin Level 3.6 g/dL (3.5-5.2); Alkaline Phosphatase 195 IU/L (40-130); Anion Gap 21.7 (5-19); Aspartate Amino Transferase 29 U/L (0-40); Blood Urea Nitrogen 19 mg/dL (8-23); Carbon Dioxide 21 mmol/L (22-29); Chloride 94 mmol/L (98-107); Globulin 2.7 g/dL (1.3-4.6); Glucose 101 mg/dL (65-115); Lipase 20 U/L (13-60); Osmolality Calculated 278 mOsm/kg (285-295); Potassium 3.7 mmol/L (3.5-5.1); Sodium 133 mmol/L (136-145); Thyroid Stimulating Hormone 2.07 uIU/mL (0.27-4.20); Total Bilirubin 0.5 mg/dL (0.15-1.2); Total Protein 6.3 g/dL (6.6-8.7)
[2021-05-07 20:08] VITALS: BP 117/83; PULSE 100; RESP 18; TEMP 36.6; O2SAT 94
[2021-05-07] MEDS: HYDROcodone-acetaminophen 5-325 mg Tablet 1 TAB PO (20:10)
[2021-05-07 20:11] VITALS: BP 117/83; PULSE 100; RESP 18; TEMP 36.6; O2SAT 94
== END 2021-05-07 20:18 | disposition home or self-care (01) ==
PROVIDERS: Emergency Provider Nurse Practitioner Family
DX: R62.7 Adult failure to thrive (principal); Z68.1 Body mass index [BMI] 19.9 or less, adult; R63.4 Abnormal weight loss; C34.90 Malignant neoplasm of unspecified part of unspecified bronchus or lung; Z79.01 Long term (current) use of anticoagulants; I10 Essential (primary) hypertension; Z85.038 Personal history of other malignant neoplasm of large intestine; Z85.46 Personal history of malignant neoplasm of prostate; Z85.048 Personal history of other malignant neoplasm of rectum, rectosigmoid junction, and anus; Z87.891 Personal history of nicotine dependence
CPT/HCPCS: 36415; 74022; 80053; 81001; 83690; 84443; 85025; 99283; Q0162

== ENCOUNTER 2021-05-13 11:55 | Inpatient (IN) | payer MEDICARE, MEDICAID, SELFPAY ==
[2021-05-13] VITALS (111 sets, daily range): BP systolic 68–150; BP diastolic 48–102; PULSE 80–114; RESP 2–28; TEMP 36.7–37; O2SAT 89–100; BMI 17.4
--- NOTE | 2021-05-13 12:05 | W.ED.GIBLEED ---
HPI - GI Bleed General: Chief complaint: GI Bleed Stated complaint: HYPOTENSION, GI BLEED Time Seen by Provider: 05/13/21 12:04 History of Present Illness: 75-year-old male presents emergency room via EMS with complaint of generalized weakness he said multiple bloody stools over the last several days. He is not able to ambulate on arrival. His initial blood pressure in the field for EMS was 50/32 he was given a liter of LR and 4 mg of Zofran. He is not had any hematemesis that was reported patient is extremely hard of hearing he denies any chest pain he does have some mild abdominal discomfort. MD complaint: gross hematochezia Onset (ago): day(s) Pain Consistency: intermittent Relieving factors: none Exacerbating factors: none Associated symptoms: Reports abdominal pain, malaise, poor appetite and weakness; Denies chills, easy bruising, epistaxis, fever(s), headache(s), nausea, other bleeding, rash, syncope or vomiting Review of Systems Const: Reports: malaise; Denies: fever(s) or chills ENMT: Denies: epistaxis Card: Denies: syncope GI: Reports: abdominal pain, diarrhea, bloating, GI cramping and hematochezia; Denies: nausea or vomiting Skin/Breast: Denies: rash Neuro: Denies: headache(s) Terry/Lymph: Denies: easy bruising PFSH ED PFSH: Medical History Acid reflux Anxiety about health Aspiration pneumonia BPH loc w urin obs/LUTS Chronic use of steroids Compression fracture of T11 vertebra Compression fx, thoracic spine Constipation, slow transit COPD (chronic obstructive pulmonary disease) Elevated PSA Essential (primary) hypertension Fracture, thoracic vertebra, compression H/O colon cancer, stage III Lumbar compression fracture Lung cancer Lung nodule seen on imaging study Mediastinal lymphadenopathy 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 Myalgia Nocturia Prostate CA Sarcoidosis Urinary retention Urinary urgency Surgical History History of liver biopsy / Percutaneous abscess drainage Port-A-Cath in place S/P colon resection 2015 ([place]) -- sigmoid resection for colon cancer / cholecystectomy / incidental appendectomy / umbilical hernia repair Family History Mother , 62 CAD (coronary artery disease) Diabetes Father , 74 Cancer Colon Social History Quit status (tobacco): has tried quititng Second hand smoke exposure: Yes Smoking risk assessment/counseling performed?: No Alcohol intake: never Desire information about alcohol rehabilitation?: No Counseling given: No Desire information about substance/drug rehabilitation?: No Counseling given: No Adopted: No Caregiver/support person: No Lives independently: Yes Household members: none Housing: House Marital status: Current occupational status: retired History of recent travel: No Current gender identity: Male Physical Exam Const: GENERAL APPEARANCE: cooperative and comfortable ORIENTATION/CONSCIOUSNESS: Yes awake HENMT: COMMON NORMALS: normocephalic, atraumatic and hearing grossly normal bilaterally HEAD & SCALP: normocephalic and atraumatic Neck/C-Spine: COMMON NORMALS: no JVD Resp: COMMON NORMALS: normal respiratory effort, No retractions, No use of accessory muscles and clear to auscultation bilaterally AUSCULTATION: clear to auscultation bilaterally Cardio: COMMON NORMALS: no JVD, regular rate, regular rhythm and No murmurs present (Cardio) RATE: regular rate RHYTHM: regular rhythm GI: COMMON NORMALS: Soft to palpation and No hepatosplenomegaly present AUSCULTATION: Yes normoactive bowel sounds PALPATION: Yes Soft to palpation, No Tenderness to palpation present (GI), No Guarding due to palpation present (GI) and Yes No hepatosplenomegaly present RECTAL EXAM: Yes visual inspection normal, Yes normal sphincter tone, Yes prostate abnormal (Significantly enlarged) enlarged and boggy and Yes heme positive stool 3+ Extremity: COMMON NORMALS: normal to inspection, capillary refill normal, no clubbing, cyanosis or edema, no calf tenderness and no pedal edema Skin: COMMON NORMALS: no rashes or lesions noted GENERAL SKIN EXAM: no rashes or lesions noted Course Vital Signs: Vital signs: Vital Signs Temperature 98.6 F 05/13/21 21:25 Pulse Rate 85 05/14/21 06:00 Respiratory Rate 17 05/14/21 06:00 Blood Pressure 88/54 05/14/21 06:00 Pulse Oximetry 94 05/14/21 06:00 MDM - GI Bleed Medical Decision Making Patient has GI bleed with what looks like early small bowel obstruction on CT. Discussed with hospitalist start Protonix also start Zosyn. Patient has been typed and screened his initial hemoglobin is stable however. He will need to be n.p.o. surgery consulted Medical Records I reviewed the patient's medical records. Lab Data I reviewed the patient's lab results. : 05/14/21 03:48 05/14/21 03:48 Radiology Impressions Chest X-Ray 05/13/21 12:11 IMPRESSION: No acute abnormalities. Findings for pulmonary metastatic disease which was demonstrated on CT 04/10/2021. Abdomen/Pelvis CT 05/13/21 13:11 IMPRESSION: 1. Increasing fluid distention of small bowel. Suspect moderate, progressive distal small bowel obstruction in the RIGHT lower quadrant. Change in caliber of the small bowel in the RIGHT lower quadrant. 2. No free fluid. 3. Increase fluid in the RIGHT colon but the distal colon is collapsed. 4. Mild progression of metastatic disease at the RIGHT lung base. 5. No metastatic disease in the liver or adrenal glands. 6. Numerous osteoporotic compression fractures. PET/CT imaging from 03/23/2021 was negative for metastatic disease that time. 7. Moderate atherosclerosis aorta. 8. Prior cholecystectomy. Laboratory Results WBC 9.0 10^3/uL (4.0-10.0) 05/13/21 12:15 RBC 4.50 10^6/uL (4.1-5.3) 05/13/21 12:15 Hgb 12.9 g/dL (11.7-16.6) 05/13/21 12:15 Hct 38.2 % (42.0-52.0) L 05/13/21 12:15 MCV 84.9 fl (80-94) 05/13/21 12:15 MCH 28.7 pg (28.0-34.0) 05/13/21 12:15 MCHC 33.8 g/dL (30.0-36.0) 05/13/21 12:15 RDW 16.2 % (12.1-15.1) H 05/13/21 12:15 Plt Count 222 10^3/cmm (130-400) 05/13/21 12:15 MPV 9.7 fL (7.4-10.4) 05/13/21 12:15 Neut % (Auto) 80.4 % 05/13/21 12:15 Lymph % (Auto) 11.1 % 05/13/21 12:15 [place] % (Auto) 7.7 % 05/13/21 12:15 Eos % (Auto) 0.1 % 05/13/21 12:15 Baso % (Auto) 0.3 % 05/13/21 12:15 Neut # (Auto) 7.22 10^3/uL (1.8-7.7) 05/13/21 12:15 Lymph # (Auto) 1.0 10^3/uL (0.8-4.8) 05/13/21 12:15 [place] # (Auto) 0.7 10^3/uL (0.2-0.9) 05/13/21 12:15 Eos # (Auto) 0.0 10^3/uL (0.0-0.8) 05/13/21 12:15 Baso # (Auto) 0.0 10^3/uL (0.0-0.1) 05/13/21 12:15 Nucleated RBC % (auto) 0 % 05/13/21 12:15 Nucleated RBCs # 0.0 /100WBC 05/13/21 12:15 D-Dimer 1.27 ug/mIFEU (0-0.59) H 05/13/21 18:01 Sodium 134 mmol/L (136-145) L 05/13/21 12:15 Potassium 3.7 mmol/L (3.5-5.1) 05/13/21 12:15 Chloride 96 mmol/L (98-107) L 05/13/21 12:15 Carbon Dioxide 22 mmol/L (22-29) 05/13/21 12:15 Anion Gap 19.7 (5-19) H 05/13/21 12:15 BUN 52 mg/dL (8-23) H 05/13/21 12:15 Creatinine 2.0 mg/dL (0.7-1.2) H 05/13/21 12:15 GFR Calculation Not Reportable 05/13/21 12:15 Glucose 101 mg/dL (65-115) 05/13/21 12:15 Calculated Osmolality 292 mOsm/kg (285-295) 05/13/21 12:15 Lactic Acid 1.7 mmol/L (0.5-2.2) 05/13/21 12:15 Calcium 8.4 mg/dL (8.5-10.5) L 05/13/21 12:15 Magnesium 1.8 mg/dL (1.7-2.3) 05/13/21 12:15 Iron 44 ug/dL (59-158) L 05/13/21 12:15 TIBC 174 mcg/dl 05/13/21 12:15 % Saturation 25.2 % (20-50) 05/13/21 12:15 Unsat Iron Binding 130 ug/dL (112-347) 05/13/21 12:15 Total Bilirubin 0.5 mg/dL (0.15-1.2) 05/13/21 12:15 AST 18 U/L (0-40) 05/13/21 12:15 ALT 18 U/L (0-41) 05/13/21 12:15 Alkaline Phosphatase 137 IU/L (40-130) H 05/13/21 12:15 Total Protein 4.7 g/dL (6.6-8.7) L 05/13/21 12:15 Albumin 2.9 g/dL (3.5-5.2) L 05/13/21 12:15 Globulin 1.8 g/dL (1.3-4.6) 05/13/21 12:15 Lipase 11 U/L (13-60) L 05/13/21 12:15 Procalcitonin 0.15 ng/mL (0-0.5) 05/13/21 12:15 Random Cortisol 25.82 ug/dL (2.47-19.5) H 05/13/21 12:15 Urine Color Yellow (Yellow) 05/13/21 16:30 Urine Appearance Clear (CLEAR) 05/13/21 16:30 Urine pH 5 (5-7) 05/13/21 16:30 Ur Specific [place] 1.015 (1.005-1.030) 05/13/21 16:30 Urine Protein Neg (Negative) 05/13/21 16:30 Urine Glucose (UA) Norm (Normal) 05/13/21 16:30 Urine Ketones 1+ (Negative) H 05/13/21 16:30 Urine Blood Neg (Negative) 05/13/21 16:30 Urine Nitrate Negative (Negative) 05/13/21 16:30 Urine Bilirubin 1+ (Negative) H 05/13/21 16:30 Urine Urobilinogen Norm mg/dL (Negative) 05/13/21 16:30 Ur Leukocyte Esterase Negative (Negative) 05/13/21 16:30 Ur Eosinophil Smear 0 (0-0) 05/13/21 16:30 Urine Eosinophils No eosinophils seen 05/13/21 16:30 Ur Random Sodium 46 mmol/L 05/13/21 16:30 Ur Random Potassium 41 mmol/L 05/13/21 16:30 Ur Random Chloride 47 mmol/L 05/13/21 16:30 Urine Creatinine 109 mg/dL (39-259) 05/13/21 16:30 Blood Type A Positive 05/13/21 12:30 Rho(D) Type Positive 05/13/21 12:30 Antibody Screen Negative 05/13/21 12:30 Discharge Plan Discharge Patient Disposition: Admitted As Inpatient Admit Provider: Christian Stephens Clinical Impression: Hematochezia, Small bowel obstruction, Shock, NOEL (acute kidney injury), Rectal cancer Condition: Stable Coding Level of Care Code ED 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
--- NOTE | 2021-05-13 12:11 | XR_ITS ---
WS: [id number] XR chest 1V portable [id number] REASON FOR EXAM: dyspnea/cough FINDINGS: Chemotherapy infusion port over the left chest with transvenous left subclavian vein catheter which a ppears located terminally in the left innominate vein. Compared to previous examination of 03/18/2021, the linear lung opacities in the left lower lung have essentially resolved. Vague right suprahilar density and nodules in both lungs not readily identifiable on previous chest e xamination. However, CT chest 04/10/2021 demonstrates these findings. No other significant interval change. XR/XR chest 1V portable [id number] IMPRESSION: No acute abnormalities. Findings for pulmonary metastatic disease which was dem onstrated on CT 04/10/2021.
[2021-05-13 12:33] LABS: Basophils % 0.3 %; Eosinophils % 0.1 %; Hematocrit 38.2 % (42.0-52.0); Hemoglobin 12.9 g/dL (11.7-16.6); Lymphocytes % 11.1 %; Mean Corpuscular HGB Conc 33.8 g/dL (30.0-36.0); Mean Corpuscular Hemoglobin 28.7 pg (28.0-34.0); Mean Corpuscular Volume 84.9 fl (80-94); Mean Platelet Volume 9.7 fL (7.4-10.4); Monocytes # 0.7 10^3/uL (0.2-0.9); Monocytes % 7.7 %; Neutrophils # 7.22 10^3/uL (1.8-7.7); Neutrophils % 80.4 %; Nucleated Red Blood Cells % 0 %; Platelet Count 222 10^3/cmm (130-400); Red Cell Distribution Width 16.2 % (12.1-15.1)
[2021-05-13] MEDS: ondansetron 2 mg/ML SDV 2 mL 4 MG IVP (12:34)
[2021-05-13] MEDS: sodium chloride 0.9% 1,000 ML 999 ML IV ×2 (12:38→15:00)
[2021-05-13 13:05] LABS: Alanine Aminotransferase 18 U/L (0-41); Albumin Level 2.9 g/dL (3.5-5.2); Alkaline Phosphatase 137 IU/L (40-130); Anion Gap 19.7 (5-19); Aspartate Amino Transferase 18 U/L (0-40); Blood Urea Nitrogen 52 mg/dL (8-23); Calcium 8.4 mg/dL (8.5-10.5); Carbon Dioxide 22 mmol/L (22-29); Chloride 96 mmol/L (98-107); Globulin 1.8 g/dL (1.3-4.6); Glucose 101 mg/dL (65-115); Lipase 11 U/L (13-60); Magnesium 1.8 mg/dL (1.7-2.3); Osmolality Calculated 292 mOsm/kg (285-295); Potassium 3.7 mmol/L (3.5-5.1); Sodium 134 mmol/L (136-145); Total Bilirubin 0.5 mg/dL (0.15-1.2); Total Protein 4.7 g/dL (6.6-8.7)
--- NOTE | 2021-05-13 13:11 | CT_ITS ---
WS: [id number] CT ABDOMEN AND PELVIS WITH CONTRAST HISTORY: Bloody stools, weakness and low blood pressure. TECHNIQUE: Imaging performed of the abdomen and pelvis with IV contrast. Single phase imaging of the abdomen. Coronal and sagittal reformats are submitted. All CT scans at [facility] use at [address] one of these dose optimization techniques: automated exposure control; mA and/or kV adjustment per patient size (includes targeted exams where dose is matched to clinical indication); or iterative re construction. IV CONTRAST: Visipaque 320; 75 mL IV. Oral contrast: No DLP: 957.24 mGy.cm COMPARISON: 04/10/2021 Lower thorax: Patient has known metastatic disease to the lungs. Metastatic nodule at the RIGHT lung base has very slightly increased in size with a maximum diameter of 1.8 cm. There are additional nodu les which are stable. Normal size heart. Small hiatal hernia. Liver/biliary system: Normal size liver. There is very mild central bile duct dilatation which may be due to prior cholecystectomy. Gallbladder: Status post cholecystectomy. Pancreas: Atrophied pancreas. Common bile duct in the pancreatic head is 5 mm. Spleen: Normal size spleen with granulomata. Adrenal glands: Normal. Right kidney: Normal. Left kidney: Normal. Aorta: Moderate atherosclerotic plaque throughout the aorta. Calcified and noncalcified plaque. Mesen teric arteries are patent. Atherosclerotic plaque extends into the iliac arteries bilaterally. Lymphadenopathy: None. Free fluid: None. GI tract: Nondistended stomach. Increasing fluid within the small bowel. There is a dilated loop of s mall bowel in the pelvis with fecalization. This loop of bowel measures up to 3 cm. There is a focal change in caliber in the RIGHT lower quadrant which may be the site of the obstruction. Distal colon is collapsed. Mild fluid distention of the RIGHT colon. Abdominal wall: Unremarkable abdominal wall. No hernia. Pelvis: Moderately well distended urinary bladder. Prostate gland is enlarged. Bones: Bones are osteopenic. Numerous osteoporotic compression fractures in the lumbar spine. T11 jennifer tebroplasty. Fractures involving L1, L2, L3, L4 and L5. S1 is lumbarized. PET/CT imaging from 021 was negative for metastatic bone disease. CT/CT abdomen pelvis w con* [id number] IMPRESSION: 1. Increasing fluid distention of small bowel. Suspect moderate, progressive d istal small bowel obstruction in the RIGHT lower quadrant. Change in caliber of the small bowel in the RIGHT lower quadrant. 2. No free fluid. 3. Increase fluid in the RIGHT colon but the distal colon is collapsed. 4. Mild progression of metastatic disease at the RIGHT lung base. 5. No metastatic disease in the liver or adrenal glands. 6. Numerous osteoporotic compression fractures. PET/CT imaging from 03/23/2021 was negative for metastatic disease that time. 7. Moderate atherosclerosis aorta. 8. Prior cholecystectomy.
[2021-05-13] MEDS: iodixanol 320 mg/mL 100mL Btl IV (13:47)
--- NOTE | 2021-05-13 15:05 | PC.PHAR ---
pt unable to verify medications-pts friend alex [phone] states she just started helping the pt with his medications-states the pt use to take care of his meds until Thursday then states the pt started getting confused so she started helping him with them-notes are made in the pharmacy comments
[2021-05-13 15:18] LABS: Lactic Sepsis W/Reflex 1.7 mmol/L (0.5-2.2)
[2021-05-13] MEDS: piperacillin-tazobactam 3.375 GM in sodium chloride 0.9% (plus) 50 ML IV ×2 (15:24→21:38)
[2021-05-13] MEDS: dextrose 5%-sod chloride 0.45% 1,000 ML 150 ML IV (16:13)
[2021-05-13 16:52] LABS: Add Urine Microscopic? NO; Charge for UA Resulting for Rev
[2021-05-13 17:19] LABS: Glucose Urine UA Norm (Normal); Ketones Urine 1+ (Negative); Protein Urine Neg (Negative); Specific Gravity, Urine 1.015 (1.005-1.030); Urine Appearance Clear (CLEAR); Urine Color Yellow (Yellow); pH Urine 5 (5-7)
[2021-05-13 17:20] LABS: Bilirubin Urine 1+ (Negative); Blood Urine Neg (Negative); Leukocyte Esterase Urine Negative (Negative); Nitrate Urine Negative (Negative); Urobilinogen Urine Norm (Negative)
--- NOTE | 2021-05-13 17:22 | P.HP_ITS ---
Providers/Chief Complaint Chief Complaint: HYPOTENSION, GI BLEED History of Present Illness History taken over the phone by son. Patient not able to cooperate as really hard of hearing. Oswaldo Khan is a 75 year old male with past medical history of hypertension, colon cancer post sigmoid resection, lung cancer currently not on treatment because of multiple vertebral compression fractures, prostate cancer, aspiration pneumonia who was recently in hospital in March 26 during which time he was advised conservative treatment for his compression fractures. On review of discharge summary it seems patient was started on Eliquis for a possible PE though CTA is not confirming the same. As per my conversation with the ER physician patient was brought in because of possible bloody bowel movement going on for last 2 to 3 days. Patient states he has been having nausea for the last 4 to 5 days along with vomiting on minimal oral intake. The same has been confirmed by patient's son as well. As per the son patient having decreased oral intake for last 2 weeks because of nausea. Today for last 1 week because of persistent nausea and vomiting. Is not been taking his oral medication. Patient has not taken his Eliquis since discharge. No new medications which patient has been taking for now with the pain medication which is not been able to take for last 4 to 5 days because of persistent nausea and vomiting. In the ER patient was found to have a systolic blood pressure of 70 for which he was started on IV fluids and later started on Levophed. On examination patient is comfortably in pain, really hard of hearing on Levophed of 2 with mean arterial pressure of 67 and heart rate of 107 with D5 half NS running at 150 cc/h. Blood work done in the ER showed a white count of 9000, hemoglobin of 12.9 with a baseline of around 14-15, chemistry showing a sodium of 134, creatinine of 2 with a baseline of less than 1, BUN of 52, total protein of 4.7 with albumin of 2.9, UA negative for any signs of infection with CT abdomen pelvis as below. Review of Systems General: Reports: ROS unobtainable due to medical condition Medications/Allergies Home Medications Medication Instructions Recorded Confirmed Last Taken Type capecitabine 150 mg tablet See Rx Instructions .ROUTE .COMPLEX 01/26/21 05/13/21 Unknown History capecitabine 500 mg tablet (Xeloda) See Rx Instructions .ROUTE .COMPLEX 01/26/21 05/13/21 Unknown History prednisone 20 mg tablet 20 mg PO DAILY 01/26/21 05/13/21 03/06/21 History docusate sodium 100 mg capsule 100 mg PO BEDTIME PRN 03/14/21 05/13/21 03/13/21 History (Stool Softener) psyllium husk 0.4 gram capsule 0.4 g PO BEDTIME PRN 03/14/21 05/13/21 Unknown History (Daily Fiber) tiotropium bromide 1.25 1 puff INHALATION DAILY 03/14/21 05/13/21 Unknown History mcg/actuation mist for inhalation (Spiriva Respimat) miscellaneous medical supply #1 ea 03/19/21 05/13/21 Unknown Rx magnesium hydroxide 400 mg/5 mL 30 ml PO BID PRN #400 ml 03/27/21 05/13/21 Unknown Rx oral suspension (Milk of Magnesia) pantoprazole 40 mg tablet,delayed 40 mg PO DAILY #30 tab 04/30/21 05/13/21 Unknown Rx release (Protonix) scopolamine base 1 mg over 3 days 1 patch TRANSDERMAL Q3D PRN #24 ea 04/30/21 05/13/21 05/13/21 Rx transdermal patch hydrocodone 5 mg-acetaminophen 325 1 tab PO Q6H PRN #15 tab 05/07/21 05/13/21 Unknown Rx mg tablet megestrol 20 mg tablet 20 mg PO BID #60 tab 05/07/21 05/13/21 Unknown Rx ondansetron 4 mg disintegrating 4 mg PO TID PRN #15 tab 05/07/21 05/13/21 Unknown Rx tablet albuterol sulfate 90 mcg/actuation 2 puff INHALATION Q6H PRN 05/13/21 05/13/21 Unknown History aerosol inhaler apixaban 5 mg tablet (Eliquis) 5 mg PO BID 05/13/21 05/13/21 Unknown History diazepam 5 mg tablet See Rx Instructions .ROUTE .COMPLEX 05/13/21 05/13/21 Unknown History duloxetine 20 mg capsule,delayed 20 mg PO BID 05/13/21 05/13/21 Unknown History release (Cymbalta) mirtazapine 15 mg disintegrating 15 mg PO BEDTIME 05/13/21 05/13/21 Unknown History tablet oxycodone 5 mg capsule 5 mg PO Q6H PRN 05/13/21 05/13/21 Unknown History tamsulosin 0.4 mg capsule 0.4 mg PO BEDTIME 05/13/21 05/13/21 Unknown History tiotropium 2.5 mcg-olodaterol 2.5 2 puff INHALATION DAILY 05/13/21 05/13/21 Unknown History mcg/actuation mist for inhalation (Stiolto Respimat) Allergies Allergy/AdvReac Type Severity Reaction Status Date / Time No Known Allergies Allergy Verified 04/16/21 13:54 PFSH Acute PFSH: Medical History (Updated 05/13/21 @ 17:49 by Christian Stephens MD) Acid reflux Anxiety about health Aspiration pneumonia BPH loc w urin obs/LUTS Chronic use of steroids Compression fracture of T11 vertebra Compression fx, thoracic spine Constipation, slow transit COPD (chronic obstructive pulmonary disease) Elevated PSA Essential (primary) hypertension Fracture, thoracic vertebra, compression H/O colon cancer, stage III Lumbar compression fracture Lung cancer Lung nodule seen on imaging study Mediastinal lymphadenopathy 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 Myalgia Nocturia Prostate CA Sarcoidosis Urinary retention Urinary urgency Surgical History (Updated 05/13/21 @ 17:40 by Christian Stephens MD) History of liver biopsy / Percutaneous abscess drainage Port-A-Cath in place S/P colon resection 2016 ([place]) -- sigmoid resection for colon cancer / cholecystectomy / incidental appendectomy / umbilical hernia repair Family History Mother , 62 CAD (coronary artery disease) Diabetes Father , 74 Cancer Colon Social History Quit status (tobacco): has tried quititng Second hand smoke exposure: Yes Smoking risk assessment/counseling performed?: No Alcohol intake: never Desire information about alcohol rehabilitation?: No Counseling given: No Desire information about substance/drug rehabilitation?: No Counseling given: No Adopted: No Caregiver/support person: No Lives independently: Yes Household members: none Housing: House Marital status: Current occupational status: retired History of recent travel: No Current gender identity: Male Vitals/I&O/Wt Last Vital Signs Temp 98.0 F 05/13/21 11:59 Pulse 107 H 05/13/21 16:20 Resp 17 05/13/21 16:20 BP 76/55 02/07/22 16:20 Pulse Ox 97 05/13/21 16:20 05/13/21 05/13/21 05/13/21 06:59 14:59 22:59 Intake Total 1000 / 1000 1049 Balance 1000 / 1000 1049 Weight last 48 hrs Weight 55.338 kg Physical Exam Narrative: EXAM NARRATIVE: General: Acute distress because of abdominal pain, extremely hard of hearing, AOx3, dehydrated, frail sick appearing HEENT: PERRLA, pupils bilaterally equal and reactive Chest: Normal vesicular breath sounds, no added sounds, equal good air entry bilaterally CVS: S1-S2 regular, no murmurs, no tachycardia, no gallops, no rubs Abdomen: Soft, generalized tenderness all over the abdomen, guarding present, no rebound tenderness, bowel sounds sluggish Neuro: No focal deficits, no facial deformity, AO x3, power 5/5 in all limbs Data : 05/13/21 12:15 05/13/21 12:15 Micro: Microbiology 05/13/21 15:10 Blood Culture - Preliminary Blood SPECIMEN COLLECTED 05/13/21 15:10 Blood Culture - Preliminary Blood SPECIMEN COLLECTED A&P Assessment and plan (1) Shock: Status: Acute (2) Small bowel obstruction: Status: Acute (3) NOEL (acute kidney injury): Status: Acute (4) Hematochezia: Status: Acute (5) H/O colon cancer, stage III: Status: Acute (6) S/P colon resection: Status: Acute (7) Adult failure to thrive syndrome: Status: Acute (8) Constipation, slow transit: Status: Chronic (9) Chronic use of steroids: Status: Acute (10) Adrenal insufficiency: Status: Suspected Plan 75 gentleman past medical history of lung cancer on conservative treatment currently because of compression fractures on chronic steroids, with history of colon cancer post resection presented to the ER today with nausea and vomiting a possible history of hematochezia found to be hypotensive. Shock: Most likely hypovolemia versus secondary to his renal insufficiency. Patient takes prednisone 20 mg oral daily. As per the cefoperazone been taking his oral medicines for over a week. Check cortisol level. Start on stress dose steroids with hydrocortisone 100 mg every 6 hourly. Keep mean arterial pressure over 65. Wean Levophed accordingly. Normal saline at 100 cc/h. Small bowel obstruction: As seen on CT scan. History of colon cancer post colon resection. Surgery consulted. Conservative treatment. N.p.o., NG tube placement. Protonix daily, Zofran as needed. For now start patient on Zosyn. Blood culture sent. Will de-escalate antibiotics rapidly the next 24 to 48 hours if hemodynamically he improves or if he remains afebrile. Hematochezia: Unclear history. We will monitor. Hemoglobin seems to be stable. Monitor hemoglobin and hematocrit every 12 hourly. Iron panel. IV iron supplementation with iron sucrose 200 mg for 5 doses. Will transfuse if hemoglobin falls below 7. NOEL: Most likely secondary to dehydration versus ATN IV fluid as above. Medical reconciliation done for nephrotoxic drugs. Urine lites, urine creatinine, urine eosinophils. Monitor BMP daily. Failure to thrive History of constipation Chronic steroid use History of lung cancer: Follows up with . History of multiple compression fractures: Follows up with Dr. Miller. Treated conservatively. Dilaudid 0.5 every 4 hours as needed for pain. CODE STATUS: Discussed in detail with patient's son/DPOA. Full code. NPO. NG tube placement. Protonix for PUD prophylaxis. SCDs for DVT prophylaxis. Patient's care discussed in detail with son over the phone. All the questions were answered. He would also like his /patient's [id number] to be informed. Her name is Vicenta with phone number [phone] Admit to ICU. Attestations Medical Necessity Statement*: Admission for more than 2 midnights for managem ent of shock most likely hypovolemic versus adrenal insufficiency, SBO in setting of colon Cancer post resection, acute kidney injury Critical Care Time: The high probability of a clinically significant, sudden or life threatening deterioration of the patient's [cardiac, GI, surgical, renal system(s) required my full and direct attention, intervention and personal management. The critical care time is as shown. 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
[2021-05-13] MEDS: sodium chloride 0.9% 1,000 ML 100 ML IV (17:45)
[2021-05-13] MEDS: hydrocortisone 100 mg/2 mL SDV IVP ×2 (17:47→22:56)
[2021-05-13 18:13] LABS: Potassium, Radom Urine 41 mmol/L; Urine Creatinine 109 mg/dL (39-259); Urine Random Chloride 47 mmol/L; Urine Random Sodium 46 mmol/L
[2021-05-13 18:27] LABS: Procalcitonin 0.15 ng/mL (0-0.5)
[2021-05-13 18:39] LABS: Iron 44 ug/dL (59-158); Percent Saturation 25.2 % (20-50); Total Iron Binding Capacity 174 mcg/dl; Unsaturated Iron Binding 130 ug/dL (112-347)
[2021-05-13 18:45] LABS: D Dimer 1.27 ug/mIFEU (0-0.59)
[2021-05-13] MEDS: iron sucrose 200 MG in sodium chloride 0.9% (100 ml) 100 ML 220 MG IV (18:55)
[2021-05-13 19:06] LABS: Eosinophil Urine No Eosinophils Seen; Urine Eosinophil Count 0 (0-0)
[2021-05-13 20:06] LABS: Cortisol Random 25.82 ug/dL (2.47-19.5)
[2021-05-13] MEDS: budesonide 0.5 mg/2 mL Neb INHALATION (20:36)
[2021-05-13] MEDS: ipratropium-albuterol 3 mL Neb INHALATION (20:36)
--- NOTE | 2021-05-13 21:32 | PC.NURSE ---
Patient arrived to ICU from ED at 2114.
[2021-05-14] VITALS (148 sets, daily range): BP systolic 74–117; BP diastolic 38–84; PULSE 77–109; RESP 11–36; TEMP 36.6–36.9; O2SAT 88–97
[2021-05-14] MEDS: sodium chloride 0.9% 1,000 ML 100 ML IV ×3 (03:22→22:17)
[2021-05-14 04:05] LABS: Basophils % 0.4 %; Hematocrit 34.4 % (42.0-52.0); Hemoglobin 11.6 g/dL (11.7-16.6); Lymphocytes # 0.4 10^3/uL (0.8-4.8); Lymphocytes % 4.5 %; Mean Corpuscular HGB Conc 33.7 g/dL (30.0-36.0); Mean Corpuscular Hemoglobin 28.1 pg (28.0-34.0); Mean Corpuscular Volume 83.3 fl (80-94); Mean Platelet Volume 9.5 fL (7.4-10.4); Monocytes # 0.2 10^3/uL (0.2-0.9); Monocytes % 2.8 %; Neutrophils # 7.12 10^3/uL (1.8-7.7); Nucleated Red Blood Cells % 0 %; Platelet Count 194 10^3/cmm (130-400); Red Blood Count 4.13 10^6/uL (4.1-5.3); White Blood Count 7.7 10^3/uL (4.0-10.0)
[2021-05-14 04:27] LABS: Chol HDL Ratio 2.83 mg/dL (1.0-5.00); Cholesterol 99 mg/dL (0-200); HDL Cholesterol 35 mg/dL (60-100); LDL Cholesterol Calculated 46 mg/dL (50-129); Triglycerides 91 mg/dL (0-150); VLDL Cholestrol Calculation 18 mg/dL (0-30)
[2021-05-14] MEDS: hydrocortisone 100 mg/2 mL SDV IVP (04:30)
[2021-05-14] MEDS: piperacillin-tazobactam 3.375 GM in sodium chloride 0.9% (plus) 100 ML IV ×3 (04:30→22:17)
[2021-05-14 04:32] LABS: Alanine Aminotransferase 15 U/L (0-41); Albumin Level 2.5 g/dL (3.5-5.2); Alkaline Phosphatase 115 IU/L (40-130); Anion Gap 16.7 (5-19); Aspartate Amino Transferase 15 U/L (0-40); Blood Urea Nitrogen 40 mg/dL (8-23); Calcium 7.8 mg/dL (8.5-10.5); Carbon Dioxide 19 mmol/L (22-29); Chloride 104 mmol/L (98-107); Globulin 1.7 g/dL (1.3-4.6); Glucose 98 mg/dL (65-115); Osmolality Calculated 292 mOsm/kg (285-295); Potassium 3.7 mmol/L (3.5-5.1); Sodium 136 mmol/L (136-145); Total Bilirubin 0.4 mg/dL (0.15-1.2); Total Protein 4.2 g/dL (6.6-8.7)
[2021-05-14 04:37] LABS: Estmated Average Glucose 120; Hemoglobin A1C 5.8 % (4.0-6.0)
[2021-05-14] MEDS: pantoprazole 40 mg SDV IVP (08:16)
[2021-05-14 09:51] LABS: Prealbumin 8.8 mg/dL (20-40)
[2021-05-14] MEDS: hydrocortisone 100 mg/2 mL SDV 50 MG IVP ×3 (11:31→20:57)
--- NOTE | 2021-05-14 11:36 | PC.NUTR ---
Consult for PPN received. Recommend Peripheral/Central administration, begining at 10 ml/hr and increase by 10 mls/hr Q8H as tolerated until rate of 42 ml/hr is reached, with standard electrolytes and multivitamins 10 mls/day. Details in RD assessment.
[2021-05-14] MEDS: ondansetron 2 mg/ML SDV 2 mL 4 MG IVP (14:57)
[2021-05-14] MEDS: HYDROmorphone 1 mg/mL INJ 1 mL 0.5 MG IVP (14:57)
--- NOTE | 2021-05-14 15:13 | PM.PN ---
Subjective Subjective: No acute events overnight. Patient seen in ICU. Blood pressures have been stable. Mean artery pressure have remained more than 62-65. Urine output more than 1000 cc overnight. Levophed stopped at 2 AM. Examination patient is awake and alert, hard of hearing. Complaining of abdominal pain. NG tube still not placed. Vitals/I&O/Wt Last Vital Signs Temp 98.5 F 05/14/21 11:00 Pulse 78 05/14/21 14:01 Resp 18 05/14/21 14:57 BP 97/63 05/14/21 14:01 Pulse Ox 96 05/14/21 14:57 05/14/21 05/14/21 05/14/21 06:59 14:59 22:59 Intake Total 1098.083 / 3613.462 1100 / 1100 Output Total 1000 / 1000 Balance 98.083 / 2613.462 1100 / 1100 Weight last 48 hrs Weight 63.248 kg Weight 63.645 kg Weight 55.338 kg Physical Exam Narrative: General: Acute distress because of abdominal pain, extremely hard of hearing, AOx3, frail sick appearing HEENT: PERRLA, pupils bilaterally equal and reactive Chest: Normal vesicular breath sounds, no added sounds, equal good air entry bilaterally CVS: S1-S2 regular, no murmurs, no tachycardia, no gallops, no rubs Abdomen: Soft, generalized tenderness all over the abdomen, guarding present, no rebound tenderness, bowel sounds sluggish Neuro: No focal deficits, no facial deformity, AO x3, power 5/5 in all limbs Urinary Catheter Management: Mcarthur: Cath Placed During This Visit: yes Reason for Continuing Indwelling Catheter: Accurate Measurement of Urinary Output in Critically Ill Patients Urinary Catheter Date of Insertion: 05/13/21 Urinary Catheter Time of Insertion: 17:29 Data : 05/14/21 03:48 05/14/21 03:48 Micro: Microbiology 05/13/21 16:30 Bacterial Antigens - Final Urine Kidney 05/13/21 16:30 Legionella Urinary Antigen - Final Unknown Source 05/13/21 15:10 Blood Culture - Preliminary Blood SPECIMEN COLLECTED 05/13/21 15:10 Blood Culture - Preliminary Blood SPECIMEN COLLECTED A&P Assessment and plan (1) Shock: Status: Acute (2) Small bowel obstruction: Status: Acute (3) NOEL (acute kidney injury): Status: Acute (4) Hematochezia: Status: Acute (5) H/O colon cancer, stage III: Status: Acute (6) S/P colon resection: Status: Acute (7) Adult failure to thrive syndrome: Status: Acute (8) Constipation, slow transit: Status: Chronic (9) Chronic use of steroids: Status: Acute (10) Adrenal insufficiency: Status: Suspected (11) Severe protein-energy malnutrition: Status: Acute Plan 75 gentleman past medical history of lung cancer on conservative treatment currently because of compression fractures on chronic steroids, with history of colon cancer post resection presented to the ER today with nausea and vomiting a possible history of hematochezia found to be hypotensive. Shock: Resolved. Most likely hypovolemia versus secondary to his renal insufficiency. Patient takes prednisone 20 mg oral daily. As per the history been taking his oral medicines for over a week. Cortisol levels appreciated. Wean hydrocortisone to 50 mg every 6 hourly Keep mean arterial pressure over 60 mmHg. Normal saline at 100 cc/h. Once PPN is started can wean down IV fluids making sure total IV replacement is 100 cc/h. Small bowel obstruction: As seen on CT scan. History of colon cancer post colon resection. Surgery consulted. Conservative treatment. N.p.o., NG tube placement. Protonix daily, Zofran as needed. For now start patient on Zosyn. Blood culture sent. Will de-escalate antibiotics rapidly the next 24 hours if hemodynamically he improves or if he remains afebrile. Hematochezia: No further episode. Unclear history. We will monitor. Hemoglobin seems to be stable. Monitor hemoglobin daily. Iron panel suggestive of anemia of chronic disease. Hold off on IV iron supplementation. NOEL: Resolved. Most likely secondary to dehydration. IV fluid as above. Medical reconciliation done for nephrotoxic drugs. Monitor BMP daily. Failure to thrive: Start on PPN. Dietitian consult. History of constipation Chronic steroid use Moderate protein energy malnutrition: Dietitian consult. Check prealbumin. History of lung cancer: Follows up with . History of multiple compression fractures: Follows up with Dr. Miller. Treated conservatively. Dilaudid 0.5 every 4 hours as needed for pain. CODE STATUS: Discussed in detail with patient's son/DPOA. Full code. NPO. PPN. NG tube placement. Protonix for PUD prophylaxis. SCDs for DVT prophylaxis. Patient's care discussed in detail with son over the phone. All the questions were answered. He would also like his /patient's [id number] to be informed. Her name is Vicenta with phone number [phone]. Care discussed in detail with patient's [id number] Ms. Yañez. All the questions were answered. She states either Olesya or herself will be making all the medical decisions. They are okay with Ms. Andres getting the information but does not want her to be making the medical decisions. Asking for a possible placement to SNF. PT evaluation. Case management has been alerted. If patient remains stable for next 24 hours can plan to transfer out of ICU to [facility]. Attestations Medical Necessity Statement*: Requires further hospitalization for management of small bowel obstruction, resolving NOEL, shock in setting of chronic failure to thrive, moderate to severe protein energy malnutrition Time Spent in Patient Care: Greater than 35 minutes Coding Level of Care Code Acute Produce Team Member for [facility] Fwd Diagnoses Shock R57.9 Small bowel obstruction K56.609 NOEL (acute kidney injury) N17.9 Hematochezia K92.1 H/O colon cancer, stage III Z85.038 S/P colon resection Z90.49 Adult failure to thrive syndrome R62.7 Constipation, slow transit K59.01 Chronic use of steroids Adrenal insufficiency E27.40 Severe protein-energy malnutrition E43
[2021-05-14] MEDS: lidocaine 2% Urojet 20 mL TOPICAL (15:27)
[2021-05-14] MEDS: haloperidol inj 5 mg/mL INJ 1 mL 1 MG IVP (15:46)
--- NOTE | 2021-05-14 16:00 | XR_ITS ---
WS: [id number] XR chest 1V portable [id number] REASON FOR EXAM: dyspnea/cough FINDINGS: There has been placement of a nasogastric tube since the previous examination of 05/13/2021. The tube i s at the level of the body of the stomach. There is new atelectasis in the left lower lung and and there may be a developing left pleural effus ion. XR/XR chest 1V portable [id number] IMPRESSION: Nasogastric tube placement as above. Interval change in the left hemithorax as above.
--- NOTE | 2021-05-14 16:03 | XR_ITS ---
WS: [id number] XR abdomen 1V* [id number] REASON FOR EXAM: NG placement FINDINGS: Nasogastric tube is now present. The tip overlies the fundus of the stomach. Nonspecific bowel gas pattern with segments of gas-filled nondilated small bowel and colon. XR/XR abdomen 1V* [id number] IMPRESSION: Nasogastric tube placement as above.
--- NOTE | 2021-05-14 16:57 | P.CONIM_ITS ---
Providers/Reason For Consult Consulting Physician/Specialty*: General Surgery Dr. Carrasco Reason for Consult*: SBO Requesting Physician: Dr. Menard Attending Physician: Christian Stephens MD History of Present Illness History of Present Illness Oswaldo Khan is a 75 year old male with history of sigmoid colon cancer status post colon resection who presents with complaints of bloody bowel movements for the last 2 to 3 days. Since hospitalization yesterday patient has not had any f urther bloody bowel movements, nausea or vomiting. He apparently has been having minimal oral intake for a few days prior to admission. Patient also has lung cancer and is currently not on any treatment. CT abdomen pelvis showed possible bowel obstruction. He was hospitalized in January 2021 with similar findings of bowel obstruction which was managed conservatively. Attempts were made to place NG tube in the ER which were unsuccessful Review of Systems General: Reports: 10 or more systems reviewed and unremarkable except in HPI and below Medications/Allergies Home Medications Medication Instructions Recorded Confirmed Last Taken Type capecitabine 150 mg tablet See Rx Instructions .ROUTE .COMPLEX 01/26/21 05/13/21 Unknown History capecitabine 500 mg tablet (Xeloda) See Rx Instructions .ROUTE .COMPLEX 01/26/21 05/13/21 Unknown History prednisone 20 mg tablet 20 mg PO DAILY 01/26/21 05/13/21 03/06/21 History docusate sodium 100 mg capsule 100 mg PO BEDTIME PRN 03/14/21 05/13/21 03/13/21 History (Stool Softener) psyllium husk 0.4 gram capsule 0.4 g PO BEDTIME PRN 03/14/21 05/13/21 Unknown History (Daily Fiber) tiotropium bromide 1.25 1 puff INHALATION DAILY 03/14/21 05/13/21 Unknown History mcg/actuation mist for inhalation (Spiriva Respimat) miscellaneous medical supply #1 ea 03/19/21 05/13/21 Unknown Rx magnesium hydroxide 400 mg/5 mL 30 ml PO BID PRN #400 ml 03/27/21 05/13/21 Unknown Rx oral suspension (Milk of Magnesia) pantoprazole 40 mg tablet,delayed 40 mg PO DAILY #30 tab 04/30/21 05/13/21 Unknown Rx release (Protonix) scopolamine base 1 mg over 3 days 1 patch TRANSDERMAL Q3D PRN #24 ea 04/30/21 05/13/21 05/13/21 Rx transdermal patch hydrocodone 5 mg-acetaminophen 325 1 tab PO Q6H PRN #15 tab 05/07/21 05/13/21 Unknown Rx mg tablet megestrol 20 mg tablet 20 mg PO BID #60 tab 05/07/21 05/13/21 Unknown Rx ondansetron 4 mg disintegrating 4 mg PO TID PRN #15 tab 05/07/21 05/13/21 Unknown Rx tablet albuterol sulfate 90 mcg/actuation 2 puff INHALATION Q6H PRN 05/13/21 05/13/21 Unknown History aerosol inhaler apixaban 5 mg tablet (Eliquis) 5 mg PO BID 05/13/21 05/13/21 Unknown History diazepam 5 mg tablet See Rx Instructions .ROUTE .COMPLEX 05/13/21 05/13/21 Unknown History duloxetine 20 mg capsule,delayed 20 mg PO BID 05/13/21 05/13/21 Unknown History release (Cymbalta) mirtazapine 15 mg disintegrating 15 mg PO BEDTIME 05/13/21 05/13/21 Unknown History tablet oxycodone 5 mg capsule 5 mg PO Q6H PRN 05/13/21 05/13/21 Unknown History tamsulosin 0.4 mg capsule 0.4 mg PO BEDTIME 05/13/21 05/13/21 Unknown History tiotropium 2.5 mcg-olodaterol 2.5 2 puff INHALATION DAILY 05/13/21 05/13/21 Unknown History mcg/actuation mist for inhalation (Stiolto Respimat) Allergies Allergy/AdvReac Type Severity Reaction Status Date / Time No Known Allergies Allergy Verified 04/16/21 13:54 Current Medications Generic Name Dose Route Start Last Admin Trade Name Freq PRN Reason Stop Dose Admin Albuterol/Ipratropium 3 ml 05/13/21 17:45 05/13/21 20:36 Ipratropium-Albuterol 3 Ml Neb INHALATION 3 ml Q8H MARTÍNEZ Administration Budesonide 0.5 mg 05/13/21 20:00 05/13/21 20:36 Budesonide 0.5 Mg/2 Ml Neb INHALATION 0.5 mg BID.RESPIRATORY MARTÍNEZ Administration Hydrocortisone Sodium Succinate 50 mg 05/14/21 09:28 05/14/21 15:46 Hydrocortisone 100 Mg/2 Ml Sdv IVP 50 mg Q6H MARTÍNEZ Administration Hydromorphone HCl 0.5 mg 05/13/21 17:32 05/14/21 14:57 Hydromorphone 1 Mg/Ml Inj 1 Ml IVP 0.5 mg Q4H PRN Administration PS 6-10 Norepinephrine Bitartrate 4 mg 254 mls @ 0 mls/hr 05/13/21 15:00 05/14/21 01:15 / Dextrose IV 0 mcg/min .Q0M MARTÍNEZ 0 mls/hr Titration Protocol Per Protocol Iron Sucrose 200 mg/ Sodium 110 mls @ 220 mls/hr 05/13/21 18:30 05/13/21 21:25 Chloride IV 05/17/21 18:59 Infused Q24H MARTÍNEZ Infusion Sodium Chloride 1,000 mls @ 100 mls/hr 05/13/21 17:31 05/14/21 14:01 Sodium Chloride 0.9% IV 100 mls/hr .Q10H MARTÍNEZ Administration Multivitamins 10 ml/ Amino 1,010 mls @ 42 mls/hr 05/14/21 10:00 05/14/21 11:37 Acids/Electrolytes IV 42 mls/hr .Q24H MARTÍNEZ Administration Fat Emulsion Intravenous 125 mls @ 10.417 mls/hr 05/14/21 10:15 05/14/21 11:37 Intralipid 20% IV 10.42 mls/hr Q24H MARTÍNEZ Administration Piperacillin Sod/Tazobactam 100 mls @ 25 mls/hr 05/14/21 14:30 05/14/21 14:05 Sod 3.375 gm/ Sodium Chloride IV 25 mls/hr Q8H MARTÍNEZ Administration Protocol Ondansetron HCl 4 mg 05/13/21 17:31 05/14/21 14:57 Ondansetron 2 Mg/Ml Sdv 2 Ml IVP 4 mg Q6H PRN Administration NAUSEA AND VOMITING Pantoprazole Sodium 40 mg 05/14/21 09:00 05/14/21 08:16 Pantoprazole 40 Mg Sdv IVP 40 mg DAILY MARTÍNEZ Administration PFSH Acute PFSH: Medical History (Updated 05/14/21 @ 17:02 by Moncho Carrasco MD) Acid reflux Anxiety about health Aspiration pneumonia BPH loc w urin obs/LUTS Chronic use of steroids Compression fracture of T11 vertebra Compression fx, thoracic spine Constipation, slow transit COPD (chronic obstructive pulmonary disease) Elevated PSA Essential (primary) hypertension Fracture, thoracic vertebra, compression H/O colon cancer, stage III Lumbar compression fracture Lung cancer Mediastinal lymphadenopathy Prostate CA Sarcoidosis Urinary retention Urinary urgency Surgical History History of liver biopsy / Percutaneous abscess drainage Port-A-Cath in place S/P colon resection 2016 ([place]) -- sigmoid resection for colon cancer / cholecystectomy / incidental appendectomy / umbilical hernia repair Family History Mother , 62 CAD (coronary artery disease) Diabetes Father , 74 Cancer Colon Social History Quit status (tobacco): has tried quititng Second hand smoke exposure: Yes Smoking risk assessment/counseling performed?: No Alcohol intake: never Desire information about alcohol rehabilitation?: No Counseling given: No Desire information about substance/drug rehabilitation?: No Counseling given: No Adopted: No Caregiver/support person: No Lives independently: Yes Household members: none Housing: House Marital status: Current occupational status: retired History of recent travel: No Current gender identity: Male Vitals/I&O/Wt Last Vital Signs Temp 98.5 F 05/14/21 11:00 Pulse 105 H 05/14/21 16:45 Resp 27 H 05/14/21 16:45 BP 111/72 05/14/21 16:45 Pulse Ox 91 05/14/21 16:45 05/14/21 05/14/21 05/14/21 06:59 14:59 22:59 Intake Total 1098.083 / 3613.462 1100 / 1100 Output Total 1000 / 1000 Balance 98.083 / 2613.462 1100 / 1100 Weight last 48 hrs Weight 139 lb 7 oz Weight 140 lb 5 oz Weight 122 lb Physical Exam Narrative: HEENT: Normocephalic Eye: Sclera /conjunctiva normal Abdomen: Soft to palpation, nondistended, nontender Neurological: Oriented to place person and time Skin: Intact, no lesions appreciated on gross exam Urinary Catheter Management: Mcarthur: Cath Placed During This Visit: yes Reason for Continuing Indwelling Catheter: Accurate Measurement of Urinary Output in Critically Ill Patients Urinary Catheter Date of Insertion: 05/13/21 Urinary Catheter Time of Insertion: 17:29 Data : 05/14/21 03:48 05/14/21 03:48 Micro: Microbiology 05/13/21 17:52 MRSA Culture - Final Nose 05/13/21 15:10 Blood Culture - Preliminary Blood NEGATIVE TO DATE 05/13/21 15:10 Blood Culture - Preliminary Blood NEGATIVE TO DATE 05/13/21 16:30 Bacterial Antigens - Final Urine Kidney 05/13/21 16:30 Legionella Urinary Antigen - Final Unknown Source A&P Assessment and plan (1) Small bowel obstruction: 75-year-old male with history of prior sigmoid resection for colon cancer who presents with abdominal pain and CT scan findings concerning for possible bowel obstruction. On physical exam patient does not have any evidence of peritonitis. Patient is on Levophed due to hypotension secondary to adrenal insufficiency since he was on steroids. WBC is normal, no other evidence of sepsis, lactate is normal I placed the NG tube at the bedside. Protonix for GI prophylaxis Abdominal series tomorrow a.m. Hopefully patient will improve with conservative measures over the next 48 to 72 hours. There is no evidence of improvement or if patient develops peritonitis he will need to undergo laparoscopy, possible laparotomy to address the bowel obstruction. Status: Acute (2) Hematochezia: Patient apparently had hematochezia but none since his hospitalization yesterday evening. He has history of sigmoid cancer status post resection Status: Acute Consult Attestations Medical Necessity Statement: As per attending physician Coding Level of Care Code Acute Enterostomal Nurse for purvi Rojas Diagnoses Small bowel obstruction K56.609 Hematochezia K92.1
--- NOTE | 2021-05-14 17:27 | USCV_ITS ---
Oswaldo Khan Age: 75 Gender: M : 1945 Exam Date: 05/14/2021 07:02 Ordering Phys: Christian Stephens MD Technologist: LISA Exam Location: [facility] [place] Indication: possible pulmonary embolus. BP: 80 / 57 HR: 91 Rhythm: Sinus Technical Quality: Technically difficult study c/o low-lying heart MEASUREMENTS (Male / Female) Normal Values 2D ECHO LV Diastolic Diameter PLAX 4.0 cm 4.2 - 5.9 / 3.9 - 5.3 cm LV Systolic Diameter PLAX 2.6 cm IVS Diastolic Thickness 1.0 cm 0.6 - 1.0 / 0.6 - 0.9 cm IVS Systolic Thickness 1.3 cm LVPW Diastolic Thickness 1.3 cm 0.6 - 1.0 / 0.6 - 0.9 cm LVPW Systolic Thickness 1.4 cm LVOT Diameter 2.0 cm LV Ejection Fraction 2D Teich 65.1 % LV Ejection Fraction MOD 2C 58.5 % LV Ejection Fraction 2C AL 57.7 % LA Diameter 3.4 cm LA Width 2.3 cm LA Height 4.3 cm RA Width 2.9 cm RA Height 2.9 cm Aorta at Sinotubular Diameter 3.6 cm M-MODE Aortic Annulus Diameter 3.7 cm LA Ao Ratio MM 0.9 MV E Point Septal Separation 0.6 cm DOPPLER AV Peak Velocity 109.0 cm/s LVOT Peak Velocity 71.0 cm/s AV Area Cont Eq vti 1.7 cm squared AV Area Cont Eq pk 2.0 cm squared MV Peak Velocity 89.0 cm/s MV Area PHT 3.1 cm squared Mitral E to A Ratio 0.8 MV E' Velocity 36.0 cm/s TV Peak E Velocity 45.0 cm/s PV Peak Velocity 93.0 cm/s RV Acceleration Time 0.1 s RV Ejection Time 0.3 s RV AcT/ET 0.4 FINDINGS Left Ventricle Normal left ventricular cavity size. Normal left ventricular systolic function. Left ventricular ejection fraction is estimated at 60 %. No regional wall motion abnormalities. Right Ventricle Normal right ventricular size and systolic function. RVSP could not be calculated due to incomplete tricuspid regurgitation velocity profile. Right Atrium Normal right atrial size. Left Atrium Normal left atrial size. Mitral Valve Mildly thickened mitral valve. No mitral valve regurgitation. Aortic Valve Structurally normal trileaflet aortic valve. No aortic valve stenosis. Tricuspid Valve Structurally normal tricuspid valve. Trace tricuspid valve regurgitation. Pulmonic Valve Pulmonic valve not well visualized. Probably structurally normal pulmonary valve. No pulmonary valve stenosis. No pulmonary valve regurgitation. Pericardium No pericardial effusion. Aorta Normal-sized aortic root. Small inferior vena cava that collapses completely. CONCLUSIONS 1. This is a technically very difficult study with off axis images and no apical windows. 2. Normal left ventricular cavity size and systolic function. Left ventricular ejection fraction is estimated at 60 %. No regional wall motion abnormalities. 3. Normal right ventricular size and systolic function. 4. No significant valvular abnormality based on the study. Morena Rubio MD (Electronically Signed) Final Date: 14 May 2021 19:34 S
--- NOTE | 2021-05-14 17:27 | USCV_ITS ---
Oswaldo Khan Age: 75 Gender: M : 1945 Exam Date: 05/14/2021 07:44 Ordering Phys: Christian Stephens MD Technologist: LISA Exam Location: [facility] [place] Indication: possible pulmonary embolus. Patient is functionally deaf, unable to obtain further hx. Severe hypotension, unable to turn patient. HISTORY: possible pulmonary embolus. Patient is functionally deaf, unable to obtain further hx. Severe hypotension, unable to turn patient. PROCEDURES: The venous duplex Doppler examination of both lower extremities was performed in the standard fashion. The following venous structures were evaluated: common femoral vein, profunda vein, proximal portion of the greater saphenous vein, superficial femoral vein, and the popliteal vein. FINDINGS: Normal 2-D Doppler and augmentation and compressibility throughout the lower extremity venous structures. Additional imaging through the proximal calf veins also reveals no thrombus. Limited evaluation of the greater saphenous vein is patent with no thrombus.. CONCLUSIONS No DVT bilateral lower extremities. Dr. Maggi Wilson DO (Electronically Signed) Final Date: 14 May 2021 08:34 S
--- NOTE | 2021-05-14 18:22 | PC.NURSE ---
NG tube placed by Dr. Carrasco with this nurse at bedside. Pain medications given per patient's request for PRN ordered pain meds. Orders place NG to LIS with positive placement verification via ordered x-ray.
[2021-05-14] MEDS: iron sucrose 200 MG in sodium chloride 0.9% (100 ml) 100 ML 220 MG IV (19:40)
[2021-05-15] VITALS (61 sets, daily range): BP systolic 94–123; BP diastolic 52–80; PULSE 74–102; RESP 13–23; TEMP 37.1; O2SAT 88–97
[2021-05-15] MEDS: hydrocortisone 100 mg/2 mL SDV 50 MG IVP (02:42)
--- NOTE | 2021-05-15 03:21 | PC.NURSE ---
No acute changes overnight. Patient resting in bed with eyes closed. Updated patients family earlier this shift.
[2021-05-15 03:52] LABS: Basophils % 0.3 %; Hematocrit 32.4 % (42.0-52.0); Hemoglobin 10.7 g/dL (11.7-16.6); Lymphocytes # 0.6 10^3/uL (0.8-4.8); Lymphocytes % 8.4 %; Mean Corpuscular Hemoglobin 28.3 pg (28.0-34.0); Mean Corpuscular Volume 85.7 fl (80-94); Mean Platelet Volume 9.9 fL (7.4-10.4); Monocytes # 0.3 10^3/uL (0.2-0.9); Monocytes % 4.6 %; Neutrophils # 6.15 10^3/uL (1.8-7.7); Neutrophils % 86.1 %; Nucleated Red Blood Cells % 0 %; Platelet Count 190 10^3/cmm (130-400); Red Blood Count 3.78 10^6/uL (4.1-5.3); Red Cell Distribution Width 16.5 % (12.1-15.1); White Blood Count 7.1 10^3/uL (4.0-10.0)
[2021-05-15 04:22] LABS: Alanine Aminotransferase 13 U/L (0-41); Albumin Level 2.4 g/dL (3.5-5.2); Alkaline Phosphatase 102 IU/L (40-130); Anion Gap 14.4 (5-19); Aspartate Amino Transferase 13 U/L (0-40); Blood Urea Nitrogen 40 mg/dL (8-23); Calcium 8.5 mg/dL (8.5-10.5); Carbon Dioxide 17 mmol/L (22-29); Chloride 108 mmol/L (98-107); Globulin 1.7 g/dL (1.3-4.6); Glucose 133 mg/dL (65-115); Osmolality Calculated 294 mOsm/kg (285-295); Potassium 3.4 mmol/L (3.5-5.1); Sodium 136 mmol/L (136-145); Total Bilirubin 0.3 mg/dL (0.15-1.2); Total Protein 4.1 g/dL (6.6-8.7)
[2021-05-15] MEDS: piperacillin-tazobactam 3.375 GM in sodium chloride 0.9% (plus) 100 ML IV (05:30)
--- NOTE | 2021-05-15 07:22 | XR_ITS ---
WS: [id number] XR acute abdomen series [id number] REASON FOR EXAM: sbo FINDINGS: No free air. Nasogastric tube in place with the tip the level of the body the stomach. Nonspecific bowel gas pattern with short segments of gas-filled bowel loops with mild to moderate dis tention. There are however short air-fluid levels within the small bowel loops. Bowel gas pattern is similar to the examination of 05/07/2021. XR/XR acute abdomen series [id number] IMPRESSION: Findings compatible with distal partial small bowel obstruction which was demon strated on CT scan of 05/13/2021 with point of obstruction in the right lower raul drant. Bowel distention does not appear as severe as on the CT scan.
[2021-05-15] MEDS: hydrocortisone 100 mg/2 mL SDV 25 MG IVP ×3 (08:54→20:23)
[2021-05-15] MEDS: pantoprazole 40 mg SDV IVP (08:55)
--- NOTE | 2021-05-15 09:57 | PC.CHAP ---
Pastoral Care Encounter/Spiritual Assessment Type of Contact [] Declined consumer analyst visit [] Patient/Family/Request visit [] Outpatient visit [] Follow-up visit [] Physician referral [] Code/Alert [x] Routine visit [] Staff referral [] Actively dying [x] Patient sleeping [] Family support [] [] Out of room [] Palliative care [] [] Receiving care in room [] Pre-surgical visit [] Trauma [] Long length of stay [x] ICU visit [] Other: Relational/Emotional Strength [] Patient feels connected with others/family/visitors/staff [] Distress [] Loneliness/isolation [] Abandonment Spirituality of Patient [] Person of [place] [] Attends Yarsani of their [place] [] Believes in Prayer [] Reads Bible or Episcopal materials [] There are Spiritual issues to be addressed Paver Layer Interventions [x] Prayer [] Active listening [] Non-anxious presence [] Spiritual/emotional support [] Crisis/trauma care [] Spiritual counseling [] Bereavement support [] Provided bereavement packet [] Provided Bible/devotional materials [] Provided toy/stuffed animal, coloring book to patient or family member [] Provided Communion [] Anointing/[place] [] Salvation [x] Completed spiritual assessment [] Other: Impact on Illness or Injury [] Angry [] Fearful [] Anxious [] Often cries [] Exhaustion [] Unable to work [] Unable to attend cheondoism [] Unable to walk/stand [] Unable to read [] Unable to drive [] Unable to eat/drink [] Unable to sleep [] Unable to be with family [] Patient intubated [] Other: Summary Time spent with patient
[2021-05-15] MEDS: lidocaine 1% 5 ML in potassium chloride premix 100 ML 25 ML IV ×2 (10:41→14:42)
--- NOTE | 2021-05-15 12:39 | P.PN_ITS ---
Subjective Subjective: No acute events overnight. Patient lying comfortably in bed. Reported to have 1 soft small bowel movement yesterday evening. NG tube placed yesterday. Patient still hard of hearing. Able to have conversation with sign language. Wants NG tube to be out. Discussed that it is important to keep the NG tube in place to prevent him from going to the OR. He verbalized understanding. Tolerating PPN well. Vitals/I&O/Wt Last Vital Signs Temp 97.8 F 05/14/21 17:00 Pulse 88 05/15/21 07:00 Resp 18 05/15/21 10:00 BP 115/63 05/15/21 10:00 Pulse Ox 96 05/15/21 10:00 05/14/21 05/15/21 05/15/21 22:59 06:59 14:59 Intake Total 1154.413 / 2254.413 160 / 2414.413 60 / 60 Output Total 425 / 425 300 / 725 Balance 729.413 / 1829.413 -140 / 1689.413 60 / 60 Weight last 48 hrs Weight 63.248 kg Weight 63.645 kg Physical Exam Narrative: General: In no acute distress, extremely hard of hearing, AOx3, frail sick appearing HEENT: PERRLA, pupils bilaterally equal and reactive Chest: Normal vesicular breath sounds, no added sounds, equal good air entry bilaterally CVS: S1-S2 regular, no murmurs, no tachycardia, no gallops, no rubs Abdomen: Soft, generalized tenderness all over the abdomen, no guarding today, no rebound tenderness, bowel sounds sluggish Neuro: No focal deficits, no facial deformity, AO x3, power 5/5 in all limbs Urinary Catheter Management: Mcarthur: Cath Placed During This Visit: yes Reason for Continuing Indwelling Catheter: Accurate Measurement of Urinary Output in Critically Ill Patients Urinary Catheter Date of Insertion: 05/13/21 Urinary Catheter Time of Insertion: 17:29 Data : 05/15/21 03:11 05/15/21 03:11 Micro: Microbiology 05/13/21 17:52 MRSA Culture - Final Nose 05/13/21 15:10 Blood Culture - Preliminary Blood NEGATIVE TO DATE 05/13/21 15:10 Blood Culture - Preliminary Blood NEGATIVE TO DATE 05/13/21 16:30 Bacterial Antigens - Final Urine Kidney A&P Assessment and plan (1) Shock: Status: Acute (2) Small bowel obstruction: Status: Acute (3) NOEL (acute kidney injury): Status: Acute (4) Hematochezia: Status: Acute (5) H/O colon cancer, stage III: Status: Acute (6) S/P colon resection: Status: Acute (7) Adult failure to thrive syndrome: Status: Inactive (8) Constipation, slow transit: Status: Chronic (9) Chronic use of steroids: Status: Acute (10) Adrenal insufficiency: Status: Suspected (11) Severe protein-energy malnutrition: Status: Acute Plan 75 gentleman past medical history of lung cancer on conservative treatment currently because of compression fractures on chronic steroids, with history of colon cancer post resection presented to the ER today with nausea and vomiting a possible history of hematochezia found to be hypotensive. Shock: Resolved. Most likely hypovolemia versus secondary to his renal insufficiency. Patient takes prednisone 20 mg oral daily. As per the history been taking his oral medicines for over a week. Cortisol levels appreciated. Wean hydrocortisone to 25 mg every 6 hourly Keep mean arterial pressure over 60 mmHg. TPN at goal. Decrease normal saline to 50 cc/h. Small bowel obstruction: As seen on CT scan. History of colon cancer post colon resection. Appreciate surgical recommendations. Conservative treatment. N.p.o., NG tube placement. Protonix daily, Zofran as needed. Stop Zosyn. Patient does not have any fever and has remained hemodynamically stable. Blood cultures so far negative. Will monitor for fevers or leukocytosis. Hematochezia: No further episode. Unclear history. Hemoglobin 10.7 today from 11.6 yesterday. Monitor hemoglobin daily. Iron panel suggestive of anemia of chronic disease. Hold off on IV iron supplementation. NOEL: Resolved. Most likely secondary to dehydration. IV fluid as above. Medical reconciliation done for nephrotoxic drugs. Monitor BMP daily. Failure to thrive: Start on TPN. Dietitian consult. History of constipation Chronic steroid use Moderate protein energy malnutrition: Dietitian consult. Prealbumin 8 History of lung cancer: Follows up with . History of multiple compression fractures: Follows up with Dr. Miller. Treated conservatively. Dilaudid 0.5 every 4 hours as needed for pain. CODE STATUS: Discussed in detail with patient's son/DPOA. Full code. NPO. PPN. NG tube placement. Protonix for PUD prophylaxis. SCDs for DVT prophylaxis. Patient's care discussed in detail with son over the phone. All the questions were answered. He would also like his /patient's [id number] to be informed. Her name is Vicenta with phone number [phone]. Care discussed in detail with patient's [id number]-by-mjy Ms. Yañez. All the questions were answered. She states either Olesya or herself will be making all the medical decisions. They are okay with Ms. Andres getting the information but does not want her to be making the medical decisions. Asking for a possible placement to SNF. PT evaluation. Case management has been alerted. Plan for today: Wean down hydrocortisone further to 25 mg every 6 hourly. Cont inue with NG tube. Continue with TPN. Physical therapy. Stop Zosyn and monitor for leukocytosis or fever. Monitor bowel movements and frequent abdominal examination. Transfer [facility] of ICU to [facility]. Discharge planning: Possible discharge to SNF. Awaiting PT evaluation. Family asking for SNF placement if possible for further rehabitation. Case management has been alerted. 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
--- NOTE | 2021-05-15 13:02 | PM.PN ---
Subjective Subjective: Patient continues to complain of abdominal pain, had 2 bowel movements yesterday and today morning which were small. He has about 200 cc of NG tube output Vitals/I&O/Wt Last Vital Signs Temp 97.8 F 05/14/21 17:00 Pulse 88 05/15/21 07:00 Resp 18 05/15/21 10:00 BP 115/63 05/15/21 10:00 Pulse Ox 96 05/15/21 10:00 05/14/21 05/15/21 05/15/21 22:59 06:59 14:59 Intake Total 1154.413 / 2414.413 160 / 2414.413 1070 / 1070 Output Total 425 / 725 300 / 725 Balance 729.413 / 1689.413 -140 / 9005.651 2011 / 1070 Weight last 48 hrs Weight 139 lb 7 oz Weight 140 lb 5 oz Physical Exam Narrative: Abdomen: Soft, nondistended, mildly tender, no guarding or rigidity, NG to LIS Urinary Catheter Management: Mcarthur: Cath Placed During This Visit: yes Reason for Continuing Indwelling Catheter: Accurate Measurement of Urinary Output in Critically Ill Patients Urinary Catheter Date of Insertion: 05/13/21 Urinary Catheter Time of Insertion: 17:29 Data : 05/15/21 03:11 05/15/21 03:11 Micro: Microbiology 05/13/21 17:52 MRSA Culture - Final Nose 05/13/21 15:10 Blood Culture - Preliminary Blood NEGATIVE TO DATE 05/13/21 15:10 Blood Culture - Preliminary Blood NEGATIVE TO DATE 05/13/21 16:30 Bacterial Antigens - Final Urine Kidney A&P Assessment and plan (1) Small bowel obstruction: 75-year-old male with history of prior sigmoid resection for colon cancer who presents with abdominal pain and CT scan findings concerning for possible bowel obstruction. On physical exam patient does not have any evidence of peritonitis. WBC is normal today and abdominal x-ray shows slight improvement in the air-fluid levels l Continue NG to LIS Protonix for GI prophylaxis Abdominal series tomorrow a.m. We will try tap water enema today Hopefully patient will improve with conservative measures over the next 48 to 72 hours. If there is no evidence of improvement or if patient develops peritonitis he will need to undergo laparoscopy, possible laparotomy to address the bowel obstruction. Status: Acute (2) Hematochezia: Patient apparently had hematochezia on presentation but no other significant evidence of GI bleed. His hemoglobin is 10.7 today. 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
[2021-05-15] MEDS: sodium chloride 0.9% 1,000 ML 50 ML IV (18:01)
--- NOTE | 2021-05-15 20:05 | PC.NURSE ---
Lipids IV lipids found to be disconnected from IV tubing with lipids running onto floor. IV administration stopped, pharmacy called, and new bag ordered. Lipids restarted at previous rate once obtained. See MAR for details.
[2021-05-15] MEDS: ipratropium-albuterol 3 mL Neb INHALATION (20:09)
[2021-05-15] MEDS: budesonide 0.5 mg/2 mL Neb INHALATION (20:10)
--- NOTE | 2021-05-15 21:05 | PC.NURSE ---
Family update Friend, Mckenna, called and received update on patient status. Friend verbalized understanding and stated no further questions.
[2021-05-15] MEDS: HYDROmorphone 1 mg/mL INJ 1 mL 0.5 MG IVP (21:12)
[2021-05-16] VITALS (21 sets, daily range): BP systolic 98–117; BP diastolic 53–76; PULSE 68–100; RESP 13–20; TEMP 36.6–37; O2SAT 93–97
--- NOTE | 2021-05-16 01:07 | PC.NURSE ---
Transfer Patient report given at bedside with Medr nurse prior to transfer. Patient transferred via bed with aid and Medsurg RN to [facility]. All belongings with patient and placed bedside in new room.
[2021-05-16] MEDS: ipratropium-albuterol 3 mL Neb INHALATION ×3 (02:35→17:02)
[2021-05-16] MEDS: hydrocortisone 100 mg/2 mL SDV 25 MG IVP ×4 (03:54→20:38)
[2021-05-16 05:23] LABS: Basophils % 0.2 %; Eosinophils % 0.3 %; Hematocrit 33.9 % (42.0-52.0); Lymphocytes # 1.2 10^3/uL (0.8-4.8); Lymphocytes % 18.4 %; Mean Corpuscular HGB Conc 32.4 g/dL (30.0-36.0); Mean Corpuscular Volume 86.3 fl (80-94); Mean Platelet Volume 9.8 fL (7.4-10.4); Monocytes # 0.4 10^3/uL (0.2-0.9); Monocytes % 6.8 %; Neutrophils # 4.63 10^3/uL (1.8-7.7); Neutrophils % 73.7 %; Nucleated Red Blood Cells % 0 %; Platelet Count 185 10^3/cmm (130-400); Red Blood Count 3.93 10^6/uL (4.1-5.3); Red Cell Distribution Width 16.6 % (12.1-15.1); White Blood Count 6.3 10^3/uL (4.0-10.0)
[2021-05-16 05:48] LABS: Alanine Aminotransferase 33 U/L (0-41); Albumin Level 2.5 g/dL (3.5-5.2); Alkaline Phosphatase 99 IU/L (40-130); Blood Urea Nitrogen 31 mg/dL (8-23); Calcium 9.3 mg/dL (8.5-10.5); Carbon Dioxide 19 mmol/L (22-29); Chloride 110 mmol/L (98-107); Globulin 1.7 g/dL (1.3-4.6); Glucose 109 mg/dL (65-115); Osmolality Calculated 291 mOsm/kg (285-295); Phosphorus 1.3 mg/dL (2.5-4.5); Sodium 137 mmol/L (136-145); Total Bilirubin 0.3 mg/dL (0.15-1.2); Total Protein 4.2 g/dL (6.6-8.7)
[2021-05-16 05:51] LABS: Anion Gap 11.8 (5-19); Aspartate Amino Transferase 37 U/L (0-40); Potassium 3.8 mmol/L (3.5-5.1)
--- NOTE | 2021-05-16 06:00 | XR_ITS ---
WS: [id number] XR abdomen min 2V 27437 REASON FOR EXAM: sbo FINDINGS: No free air. There may have been some retraction of the nasogastric tube hour it appears to overlie the fundal por tion of the stomach. There is some gas in the right colon. There are persistent gas distended small bowel loops in the left upper abdomen and in the mid lower a bdomen. These loops appear more distended than on the previous examination of 05/15/2021. XR/XR abdomen min 2V [id number] IMPRESSION: Bowel gas pattern indicative of partial distal small bowel obstruction with no improvement.
--- NOTE | 2021-05-16 07:44 | PC.SOCIAL ---
Addendum entered by Kinga Knowles RN 05/17/21 07:46: copy given to patient Original Note: IMM UPDATED IMM dated and initialed and copy put in chart
[2021-05-16] MEDS: pantoprazole 40 mg SDV IVP (08:26)
[2021-05-16] MEDS: magnesium citrate Btl 296 mL 148 ML PO (08:26)
[2021-05-16] MEDS: budesonide 0.5 mg/2 mL Neb INHALATION (09:25)
[2021-05-16] MEDS: sodium chloride 0.9% 1,000 ML 50 ML IV (10:09)
[2021-05-16] MEDS: HYDROmorphone 1 mg/mL INJ 1 mL 0.5 MG IVP ×2 (11:00→20:37)
--- NOTE | 2021-05-16 12:23 | PM.PN ---
Subjective Subjective: Patient denies significant abdominal pain, nausea or vomiting, had 1 bowel movement yesterday Vitals/I&O/Wt Last Vital Signs Temp 98.0 F 05/16/21 11:59 Pulse 80 05/16/21 11:59 Resp 18 05/16/21 11:59 BP 110/62 05/16/21 11:59 Pulse Ox 96 05/16/21 11:59 05/15/21 05/16/21 05/16/21 22:59 06:59 14:59 Intake Total 169.5 / 2444.917 105 / 2444.917 931.667 / 931.667 Output Total 430 / 780 350 / 780 300 / 300 Balance -260.5 / 1664.917 -245 / 1664.917 631.667 / 631.667 Weight last 48 hrs Weight 142 lb 6.4 oz Physical Exam Narrative: Soft, mildly tender, nondistended Urinary Catheter Management: Mcarthur: Cath Placed During This Visit: yes Reason for Continuing Indwelling Catheter: Acute Urinary Retention or Obstruction Urinary Catheter Date of Insertion: 05/13/21 Urinary Catheter Time of Insertion: 17:29 Data : 05/16/21 04:51 05/16/21 04:51 A&P Assessment and plan (1) Small bowel obstruction: 75-year-old male with history of prior sigmoid resection for colon cancer who presents with abdominal pain and CT scan findings concerning for possible bowel obstruction. On physical exam patient does not have any evidence of peritonitis. WBC is normal today and abdominal x-ray shows partial bowel obstruction with no improvement compared to yesterday NG tube, 1 bottle of magnesium citrate and milk of molasses enema today Protonix for GI prophylaxis Abdominal series tomorrow a.m. If there is no improvement tomorrow, we will obtain a CT abdomen pelvis and he might need abdominal exploration Status: Acute (2) Hematochezia: Patient apparently had hematochezia on presentation but no other significant evidence of GI bleed. His hemoglobin is 11 today. 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
--- NOTE | 2021-05-16 15:08 | PM.PN ---
Subjective Subjective: No acute events overnight. Patient did have 1 bowel movement yesterday. Getting mag citrate and enema today as per surgery NG tube in place and clamped Patient is frustrated about NG tube in place. No more nausea vomiting. Vitals/I&O/Wt Last Vital Signs Temp 98.0 F 05/16/21 11:59 Pulse 80 05/16/21 11:59 Resp 18 05/16/21 11:59 BP 110/62 05/16/21 11:59 Pulse Ox 96 05/16/21 11:59 05/16/21 05/16/21 05/16/21 06:59 14:59 22:59 Intake Total 105 / 2444.917 1941.667 / 1941.667 Output Total 350 / 780 300 / 300 Balance -245 / 5547.858 2431.667 / 1641.667 Weight last 48 hrs Weight 64.592 kg Physical Exam Narrative: General: In no acute distress, extremely hard of hearing, AOx3, frail sick appearing HEENT: PERRLA, pupils bilaterally equal and reactive Chest: Normal vesicular breath sounds, no added sounds, equal good air entry bilaterally CVS: S1-S2 regular, no murmurs, no tachycardia, no gallops, no rubs Abdomen: Soft, no tenderness, no guarding today, no rebound tenderness, bowel sounds sluggish Neuro: No focal deficits, no facial deformity, AO x3, power 5/5 in all limbs Urinary Catheter Management: Mcarthur: Cath Placed During This Visit: yes Reason for Continuing Indwelling Catheter: Acute Urinary Retention or Obstruction Urinary Catheter Date of Insertion: 05/13/21 Urinary Catheter Time of Insertion: 17:29 Data : 05/16/21 04:51 05/16/21 04:51 A&P Assessment and plan (1) Shock: Status: Acute (2) Small bowel obstruction: Status: Acute (3) NOEL (acute kidney injury): Status: Acute (4) Hematochezia: Status: Acute (5) H/O colon cancer, stage III: Status: Acute (6) S/P colon resection: Status: Acute (7) Adult failure to thrive syndrome: Status: Inactive (8) Constipation, slow transit: Status: Chronic (9) Chronic use of steroids: Status: Acute (10) Adrenal insufficiency: Status: Suspected (11) Severe protein-energy malnutrition: Status: Acute Plan 75 gentleman past medical history of lung cancer on conservative treatment currently because of compression fractures on chronic steroids, with history of colon cancer post resection presented to the ER today with nausea and vomiting a possible history of hematochezia found to be hypotensive. Shock: Resolved. Most likely hypovolemia versus secondary to his renal insufficiency. Patient takes prednisone 20 mg oral daily. As per the history been taking his oral medicines for over a week. Cortisol levels appreciated. Continue with hydrocortisone to 25 mg every 6 hourly. It is equal into patient's home dose of 20 mg of prednisone at home. For now we will continue the same dose patient remains n.p.o. Keep mean arterial pressure over 60 mmHg. Continue with TPN at goal. Stop IV fluids. Small bowel obstruction: As seen on CT scan. History of colon cancer post colon resection. Appreciate surgical recommendations. Appreciate morning's abdominal series Conservative treatment. N.p.o., NG tube placement. Enema and bowel regimen as per surgical team. If patient does not have any resolution of SBO within next 24 hours possible surgical intervention. Protonix daily, Zofran as needed. Stop Zosyn. Patient does not have any fever and has remained hemodynamically stable. Blood cultures so far negative. Will monitor for fevers or leukocytosis. Hematochezia: No further episode. Unclear history. Hemoglobin 10.7 today from 11.6 yesterday. Monitor hemoglobin daily. Iron panel suggestive of anemia of chronic disease. Hold off on IV iron supplementation. NOEL: Resolved. Most likely secondary to dehydration. Stop IV fluids. Continue with TPN. Medical reconciliation done for nephrotoxic drugs. Monitor BMP daily. Failure to thrive: Start on TPN. Dietitian consult. Moderate protein energy malnutrition: Dietitian consult. Prealbumin 8 History of lung cancer: Follows up with . History of multiple compression fractures: Follows up with Dr. Miller. Treated conservatively. Dilaudid 0.5 every 4 hours as needed for pain. CODE STATUS: Discussed in detail with patient's son/DPOA. Full code. NPO. TPN. NG tube placement. Protonix for PUD prophylaxis. SCDs for DVT prophylaxis. Patient's care discussed in detail with son over the phone. All the questions were answered. He would also like his /patient's bxemyufa-ei-whx to be informed. Her name is Vicenta with phone number [phone]. Care discussed in detail with patient's tdhtuqwr-dy-rgu Ms. Yañez. All the questions were answered. She states either Olesya or herself will be making all the medical decisions. They are okay with Ms. Andres getting the information but does not want her to be making the medical decisions. Asking for a possible placement to SNF. PT evaluation. Case management has been alerted. Plan for today: Continue with hydrocortisone 25 mg every 6 hour. Enema and mag citrate as per surgical team. Continue with NG tube. If no improvement within next 24 hours plan for OR. Discharge planning: Possible discharge to SNF. Awaiting PT evaluation. Family asking for SNF placement if possible for further rehabitation. Case management has been alerted. 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
[2021-05-16] MEDS: ondansetron 2 mg/ML SDV 2 mL 4 MG IVP (20:45)
[2021-05-17] VITALS (32 sets, daily range): BP systolic 110–125; BP diastolic 64–79; PULSE 71–101; RESP 0–22; TEMP 36.4–37.1; O2SAT 93–98
[2021-05-17] MEDS: HYDROmorphone 1 mg/mL INJ 1 mL 0.5 MG IVP ×4 (01:45→19:35)
[2021-05-17] MEDS: hydrocortisone 100 mg/2 mL SDV 25 MG IVP ×4 (02:38→21:03)
[2021-05-17] MEDS: ipratropium-albuterol 3 mL Neb INHALATION ×3 (02:41→21:21)
[2021-05-17 05:35] LABS: Alanine Aminotransferase 79 U/L (0-41); Albumin Level 2.4 g/dL (3.5-5.2); Alkaline Phosphatase 112 IU/L (40-130); Anion Gap 10.9 (5-19); Aspartate Amino Transferase 59 U/L (0-40); Blood Urea Nitrogen 22 mg/dL (8-23); Calcium 7.7 mg/dL (8.5-10.5); Carbon Dioxide 23 mmol/L (22-29); Chloride 108 mmol/L (98-107); Globulin 1.8 g/dL (1.3-4.6); Glucose 130 mg/dL (65-115); Osmolality Calculated 291 mOsm/kg (285-295); Potassium 3.9 mmol/L (3.5-5.1); Sodium 138 mmol/L (136-145); Total Bilirubin 0.2 mg/dL (0.15-1.2); Total Protein 4.2 g/dL (6.6-8.7)
--- NOTE | 2021-05-17 06:00 | XR_ITS ---
WS: [id number] XR abdomen min 2V 44634 REASON FOR EXAM: sbo FINDINGS: The nasogastric tube remains in position near the body of the stomach. Compared to the examination of the previous day there is an increased amount of colon gas and the deg ree of distention of the dilated small bowel has decreased somewhat. No other interval change or new finding. XR/XR abdomen min 2V [id number] IMPRESSION: Improvement of obstructive pattern.
--- NOTE | 2021-05-17 06:59 | CT_ITS ---
WS: [id number] CT ABDOMEN AND PELVIS WITH CONTRAST HISTORY: sbo prior colon resection TECHNIQUE: Imaging performed of the abdomen and pelvis with IV contrast. Single phase imaging of the abdomen. Coronal and sagittal reformats are submitted. All CT scans at [facility] use at [address] one of these dose optimization techniques: automated exposure control; mA and/or kV adjustment per patient size (includes targeted exams where dose is matched to clinical indication); or iterative re construction. IV CONTRAST: Omnipaque 300; 95 mL IV. Oral contrast: Yes. DLP: 1146.28 mGy.cm COMPARISON: 05/13/2021 and 04/10/2021 Lower thorax: Development of small bilateral pleural effusions with compressive atelectasis at the jeff ng bases. The known nodules at the lung bases are obscured by the fluid but these were recently descr ibed on 05/13/2021. Heart is normal size. Nasogastric tube is present within the esophagus extending in to the stomach. No hiatal hernia. Liver/biliary system: Normal size with no intrahepatic dilatation. Gallbladder: Status post cholecystectomy. Pancreas: Very mild atrophy of the pancreas. No bile duct dilatation. Spleen: Normal size spleen. No mass or infarct. Adrenal glands: Normal. Right kidney: Normal. Left kidney: Normal. Aorta: Moderate atherosclerosis with no aneurysm. Lymphadenopathy: None. Free fluid: There is a very small amount of free fluid in the pelvis which is new since the prior mike dy. GI tract: Progressive dilatation of small bowel loops in the mid to distal pelvis. Increasing fluid w ithin the lumen. There is increased density within the fluid which may be due to oral contrast which is diluted or could be hemorrhage. Within the lumen of the dilated loops there are linear filling def ects which could be polyps. There is a change in small bowel caliber near the midline, seen best on i mage 37 of series 602. The very distal small bowel loops are not dilated. No free air is identified. Seen on coronal reformats, image 34 of 602 there are a few small foci of air extending into the submu cosa of an abnormal loop of small bowel in the RIGHT lower quadrant. The dilated small bowel is edema tous with submucosal thickening and edema. Patient is status post partial sigmoid resection. No recur rent mass at the resection site. Abdominal wall: Unremarkable abdominal wall. No hernia. Pelvis: Small amount of free fluid in the pelvis is new. Mcarthur catheter in a nondistended bladder. Th ere is a tiny focus of air in the bladder which is probably from the catheter insertion. 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 CT/CT abdomen pelvis w con* [id number] IMPRESSION: 1. Increasing fluid and distention of the loop of small bowel in the mid midab domen and RIGHT lower quadrant. Closed loop obstruction should be considered. T here is a transition point in the mid abdomen. There are also a few small foci of air in a dilated loop in the RIGHT lower quadrant which extend into the subm ucosal layer. Early changes of pneumatosis should be considered. 2. There is no free air. 3. New small amount of free fluid in the pelvis. 4. Surgical resection changes in the sigmoid are intact. 5. Mcarthur catheter in a nondistended urinary bladder. 6. New small bilateral pleural effusions. 7. Nasogastric tube in good position.
[2021-05-17] MEDS: pantoprazole 40 mg SDV IVP (08:17)
[2021-05-17] MEDS: iohexol 300 mg/mL 50 mL Btl PO (12:14)
[2021-05-17] MEDS: iohexol 300 mg/mL 100 mL Btl IV (13:19)
--- NOTE | 2021-05-17 15:35 | P.PN_ITS ---
Subjective Subjective: No acute events overnight. Patient received enema and mag citrate yesterday after which he had 3 very soft small bowel movements. Bowel sounds present. Denies any nausea vomiting, headache. NG tube clamped. Vitals/I&O/Wt Last Vital Signs Temp 98.1 F 05/17/21 12:00 Pulse 88 05/17/21 14:00 Resp 18 05/17/21 15:07 BP 125/79 05/17/21 12:00 Pulse Ox 96 05/17/21 15:07 05/17/21 05/17/21 05/17/21 06:59 14:59 22:59 Intake Total 2111 Output Total 450 / 1300 Balance -450 / 658.883 7380 / 2112 Weight last 48 hrs Weight 64.909 kg Weight 64.592 kg Physical Exam Narrative: General: In no acute distress, extremely hard of hearing, AOx3, frail sick appearing HEENT: PERRLA, pupils bilaterally equal and reactive Chest: Normal vesicular breath sounds, no added sounds, equal good air entry bilaterally CVS: S1-S2 regular, no murmurs, no tachycardia, no gallops, no rubs Abdomen: Soft, no tenderness, no guarding today, no rebound tenderness, bowel sounds sluggish Neuro: No focal deficits, no facial deformity, AO x3, power 5/5 in all limbs Urinary Catheter Management: Mcarthur: Cath Placed During This Visit: yes Reason for Continuing Indwelling Catheter: Acute Urinary Retention or Obstructi on Urinary Catheter Date of Insertion: 05/13/21 Urinary Catheter Time of Insertion: 17:29 Data : 05/16/21 04:51 05/17/21 04:43 A&P Assessment and plan (1) Pneumatosis coli: Status: Acute (2) Small bowel obstruction: Status: Acute (3) NOEL (acute kidney injury): Status: Acute (4) Hematochezia: Status: Acute (5) H/O colon cancer, stage III: Status: Acute (6) S/P colon resection: Status: Acute (7) Adult failure to thrive syndrome: Status: Inactive (8) Constipation, slow transit: Status: Chronic (9) Chronic use of steroids: Status: Acute (10) Shock: Resoved Status: Acute (11) Adrenal insufficiency: Status: Suspected (12) Severe protein-energy malnutrition: Status: Acute Plan 75 gentleman past medical history of lung cancer on conservative treatment currently because of compression fractures on chronic steroids, with history of colon cancer post resection presented to the ER today with nausea and vomiting a possible history of hematochezia found to be hypotensive. Small bowel obstruction: Repeat CT scan today. History of colon cancer post colon resection. Appreciate surgical recommendations. Conservative treatment for now. Depending on the CT scan results will decide about possible OR. N.p.o., NG tube placement. Enema and bowel regimen as per surgical team. Protonix daily, Zofran as needed. Stop Zosyn. Patient does not have any fever and has remained hemodynamically stable. Blood cultures so far negative. Will monitor for fevers or leukocytosis. Shock: Resolved. Most likely hypovolemia versus secondary to his renal insufficiency. Continue with hydrocortisone to 25 mg every 6 hourly. It is equal into patient's home dose of 20 mg of prednisone at home. For now we will continue the same dose patient remains n.p.o. Keep mean arterial pressure over 60 mmHg. Continue with TPN at goal. Stop IV fluids Hematochezia: No further episode. Unclear history. Hemoglobin 10.7 today from 11.6 yesterday. Monitor hemoglobin daily. Iron panel suggestive of anemia of chronic disease. Hold off on IV iron supplementation. NOEL: Resolved. Most likely secondary to dehydration. Stop IV fluids. Continue with TPN. Medical reconciliation done for nephrotoxic drugs. Monitor BMP daily. Failure to thrive: Start on TPN. Dietitian consult. Severe protein energy malnutrition: Dietitian consult. Prealbumin 8. Lost more than 30% of weight in last 3 months. History of lung cancer: Follows up with . History of multiple compression fractures: Follows up with Dr. Miller. Treated conservatively. Dilaudid 0.5 every 4 hours as needed for pain. CODE STATUS: Discussed in detail with patient's son/DPOA. Full code. NPO. TPN. NG tube placement. Protonix for PUD prophylaxis. SCDs for DVT prophylaxis. Patient's care discussed in detail with son over the phone. All the questions were answered. He would also like his /patient's [id number] to be informed. Her name is Vicenta with phone number [phone]. Care discussed in detail with patient's [id number] Ms. Yañez. All the questions were answered. She states either Olesya or herself will be making all the medical decisions. They are okay with Ms. Andres getting the information but does not want her to be making the medical decisions. Asking for a possible placement to SNF. PT evaluation. Case management has been alerted. Plan for today: Continue with hydrocortisone 25 mg every [address] scan for further evaluation and management of small bowel obstruction and to rule out pneumatosis. Continue TPN. Discharge planning: Possible discharge to SNF. Awaiting PT evaluation. Family asking for SNF placement if possible for further rehabitation. Case management has been alerted. Attestations Medical Necessity Statement*: Requires further hospitalization for management of small bowel obstruction, progressing to pneumatosis coli in setting of history of colon cancer post sigmoid resection, resolved NOEL and shock Time Spent in Patient Care: Greater than 35 minutes Coding Level of Care Code Acute Fiscal Specialist for Chg Fwd Diagnoses Shock R57.9 Small bowel obstruction K56.609 NOEL (acute kidney injury) N17.9 Hematochezia K92.1 H/O colon cancer, stage III Z85.038 S/P colon resection Z90.49 Adult failure to thrive syndrome R62.7 Constipation, slow transit K59.01 Chronic use of steroids Adrenal insufficiency E27.40 Severe protein-energy malnutrition E43 Pneumatosis coli K63.89
--- NOTE | 2021-05-17 16:09 | PM.PN ---
Subjective Subjective: Patient was a bit nauseated after the CT scan where he drank the contrast and the NG tube was clamped. He had milk of molasses enema and mag citrate yesterday and had multiple small bowel movements as per nursing staff Medications: Reviewed: Yes Vitals/I&O/Wt Last Vital Signs Temp 98.1 F 05/17/21 12:00 Pulse 88 05/17/21 14:00 Resp 18 05/17/21 15:07 BP 125/79 05/17/21 12:00 Pulse Ox 96 05/17/21 15:07 05/17/21 05/17/21 05/17/21 06:59 14:59 22:59 Intake Total 2111 Output Total 450 / 1300 Balance -450 / 262.652 6355 / 2112 Weight last 48 hrs Weight 143 lb 1.6 oz Weight 142 lb 6.4 oz Physical Exam Narrative: Abdomen: Soft, minimally tender, nondistended Urinary Catheter Management: Mcarthur: Cath Placed During This Visit: yes Reason for Continuing Indwelling Catheter: Acute Urinary Retention or Obstruction Urinary Catheter Date of Insertion: 05/13/21 Urinary Catheter Time of Insertion: 17:29 Data : 05/16/21 04:51 05/17/21 04:43 CT Abd/Pel: Radiologist's impression: 1.? Increasing fluid and distention of the loop of small bowel in the mid midabdomen and RIGHT lower quadrant. Closed loop obstruction should be considered. There is a transition point in the mid abdomen. There are also a few small foci of air in a dilated loop in the RIGHT lower quadrant which extend into the submucosal layer. Early changes of pneumatosis should be considered. 2.? There is no free air. 3.? New small amount of free fluid in the pelvis. 4.? Surgical resection changes in the sigmoid are intact. 5.? Mcarthur catheter in a nondistended urinary bladder. 6.? New small bilateral pleural effusions. 7.? Nasogastric tube in good position. A&P Assessment and plan (1) Small bowel obstruction: 75-year-old male status post sigmoid colectomy in [place] who was admitted for the second time in the last few months with bowel obstruction. Patient had not shown significant improvement clinically with conservative measures and therefore CT abdomen and pelvis was repeated today which showed persistent bowel obstruction in the right lower/mid abdomen. On physical exam patient is hemodynamically stable without any evidence of peritonitis. Discussed with the patient and his son, I will plan for laparoscopy, possible laparotomy, possible bowel resection tomorrow a.m. since there are multiple surgeries scheduled by the surgeons ghazala and he is currently stable. Status: Acute (2) Adult failure to thrive syndrome: Continue PPN Status: Inactive (3) Chronic use of steroids: Patient is at a high risk of surgical complications from his high-dose steroid use. Status: Acute Plan 75 gentleman past medical history of lung cancer on conservative treatment currently because of compression fractures on chronic steroids, with history of colon cancer post resection presented to the ER today with nausea and vomiting a possible history of hematochezia found to be hypotensive. Shock: Resolved. Most likely hypovolemia versus secondary to his renal insufficiency. Patient takes prednisone 20 mg oral daily. As per the history been taking his oral medicines for over a week. Cortisol levels appreciated. Continue with hydrocortisone to 25 mg every 6 hourly. It is equal into patient's home dose of 20 mg of prednisone at home. For now we will continue the same dose patient remains n.p.o. Keep mean arterial pressure over 60 mmHg. Continue with TPN at goal. Stop IV fluids. Small bowel obstruction: As seen on CT scan. History of colon cancer post colon resection. Appreciate surgical recommendations. Appreciate morning's abdominal series Conservative treatment. N.p.o., NG tube placement. Enema and bowel regimen as per surgical team. If patient does not have any resolution of SBO within next 24 hours possible surgical intervention. Protonix daily, Zofran as needed. Stop Zosyn. Patient does not have any fever and has remained hemodynamically stable. Blood cultures so far negative. Will monitor for fevers or leukocytosis. Hematochezia: No further episode. Unclear history. Hemoglobin 10.7 today from 11.6 yesterday. Monitor hemoglobin daily. Iron panel suggestive of anemia of chronic disease. Hold off on IV iron supplementation. NOEL: Resolved. Most likely secondary to dehydration. Stop IV fluids. Continue with TPN. Medical reconciliation done for nephrotoxic drugs. Monitor BMP daily. Failure to thrive: Start on TPN. Dietitian consult. Moderate protein energy malnutrition: Dietitian consult. Prealbumin 8 History of lung cancer: Follows up with . History of multiple compression fractures: Follows up with Dr. Miller. Treated conservatively. Dilaudid 0.5 every 4 hours as needed for pain. CODE STATUS: Discussed in detail with patient's son/DPOA. Full code. NPO. TPN. NG tube placement. Protonix for PUD prophylaxis. SCDs for DVT prophylaxis. Patient's care discussed in detail with son over the phone. All the questions were answered. He would also like his /patient's [id number] to be informed. Her name is Vicenta with phone number [phone]. Care discussed in detail with patient's [id number] Ms. Yañez. All the questions were answered. She states either Olesya or herself will be making all the medical decisions. They are okay with Ms. Andres getting the information but does not want her to be making the medical decisions. Asking for a possible placement to SNF. PT evaluation. Case management has been alerted. Plan for today: Continue with hydrocortisone 25 mg every 6 hour. Enema and mag citrate as per surgical team. Continue with NG tube. If no improvement within next 24 hours plan for OR. Discharge planning: Possible discharge to SNF. Awaiting PT evaluation. Family asking for SNF placement if possible for further rehabitation. Case management has been alerted. Attestations Medical Necessity Statement*: As per primary Coding Level of Care Code Acute Customer Care Specialist for Chg Fwd Diagnoses Small bowel obstruction K56.609 Adult failure to thrive syndrome R62.7 Chronic use of steroids
--- NOTE | 2021-05-17 19:50 | PC.NURSE ---
Patient had CT today, showing obstruction was still present. Surgery is scheduled for tomorrow at 0800. Consent signed. Family updated. NG was placed back on suction due to increase nausea. Patient had 3 small bowel movements throughout shift. Mcarthur clean and intact, adequate output. Pain was controlled with PRN pain medications. Report given to ROYAL Hogan.
[2021-05-18] VITALS (57 sets, daily range): BP systolic 106–135; BP diastolic 68–88; PULSE 72–101; RESP 0–22; TEMP 36.4–37.3; O2SAT 90–96
[2021-05-18] MEDS: ondansetron 2 mg/ML SDV 2 mL 4 MG IVP (00:34)
[2021-05-18] MEDS: HYDROmorphone 1 mg/mL INJ 1 mL 0.5 MG IVP ×5 (02:02→22:01)
[2021-05-18] MEDS: hydrocortisone 100 mg/2 mL SDV 25 MG IVP ×3 (02:03→20:58)
--- NOTE | 2021-05-18 07:38 | P.PN_ITS ---
Subjective Subjective: no issues overnight, mild abdominal pain, 1BM overnight,small Medications: Reviewed: Yes Vitals/I&O/Wt Last Vital Signs Temp 98.0 F 05/18/21 04:00 Pulse 87 05/18/21 04:00 Resp 18 05/18/21 06:04 BP 111/71 05/18/21 04:00 Pulse Ox 96 05/18/21 04:00 05/17/21 05/18/21 05/18/21 22:59 06:59 14:59 Output Total 950 / 1974 1025 / 1974 Balance -950 / 137 -1025 / 137 Weight last 48 hrs Weight 143 lb 1.6 oz Physical Exam Narrative: Abdomen: soft, ND, mildly tender Urinary Catheter Management: Mcarthur: Cath Placed During This Visit: yes Reason for Continuing Indwelling Catheter: Acute Urinary Retention or Obstruction Urinary Catheter Date of Insertion: 05/13/21 Urinary Catheter Time of Insertion: 17:29 Data : 05/16/21 04:51 05/17/21 04:43 A&P Assessment and plan (1) Small bowel obstruction: 75-year-old male status post sigmoid colectomy in [place] who was admitted for the second time in the last few months with bowel obstruction.? Patient had not shown significant improvement clinically with conservative measures and therefore CT abdomen and pelvis was repeated today which showed persistent bowel obstruction in the right lower/mid abdomen. On physical exam patient is hemodynamically stable without any evidence of peritonitis. Plan for laparoscopy, possible laparotomy, possible bowel resection Procedure, risks and benefits have been discussed with patient and his son Status: Acute Attestations Medical Necessity Statement*: as per primary Coding Level of Care Code Acute Loading Supervisor for [facility] Jerri Diagnoses Small bowel obstruction K56.609
--- NOTE | 2021-05-18 07:54 | SUR.PREOP ---
0730 PT TO OPS 8 PT AWAKE ALERT VERY [place], IVS TO LT SUBCLAVIAN PORT LIPIDS AT 10.4ML/H AND TPN AT 42 ML/HR INFUSING PER PUMP PT HAS NG TO LT NARE, SECURED WELL AND CLAMPED AT THIS TIME, SCDS ON BILAT. DR NORWOOD AT BEDSIDE.
[2021-05-18] MEDS: piperacillin-tazobactam 3.375 GM in sodium chloride 0.9% (plus) 50 ML IV (07:55)
--- NOTE | 2021-05-18 07:57 | SUR.PREOP ---
0747 PT AWAKE ALERT FAMILY AT BEDSIDE AND PT TO OR PER BED, FAMILY TO WAITING ROOM.
--- NOTE | 2021-05-18 07:58 | SUR.PREOP ---
0747 PT HAS A THOMSON CATHETER TO DEPENDANT DRAINAGE WITH YELLOW URINE NOTED TO BAG APPRX 200ML NOT EMPTIED.
--- NOTE | 2021-05-18 08:28 | P.ANESASSM_ITS ---
Pre-Anesthetic Assessment Height/Weight: Height 1.78 m Weight 64.909 kg Temp Pulse Resp BP Pulse Ox 99.2 F 79 20 H 106/69 90 05/18/21 07:30 05/18/21 07:30 05/18/21 07:30 05/18/21 07:30 05/18/21 07:30 Preop Diagnosis: Small bowel obstruction Operation Date: 05/18/21 08:30 Proposed Procedures p Laparoscopy(Not Applicable) - Moncho Carrasco MD s Exploratory Laparotomy(Not Applicable) - Moncho Carrasco MD Familial anesthetic complications: None Was Beta Charis taken within 24 hours: N/A Was Clonidine taken within 24 hours: N/A Social No alcohol and No tobacco (h/o smoking) Exam alert, oriented x 3 and regular rate & rhythm Wheezing Airway Submandibular: within normal limits Cervical ROM: within normal limits Mallampati: Class II Dentition: false (upper) Comments: Comments: Missing most on lower arch Pulmonary Chronic Obstructive Pulmonary Disease Lung CA CV/HEM Anemia, Coronary Artery Disease and Peripheral Vascular Disease GI Gastroesophageal Reflux Disease Colon CA, SBO Metabolic Chronic steroids Musc/skel Lower Back Pain and Osteoarthritis/DJD Anesthetic Plan ASA status: 4 Anesthesia: General (RSI) Risk of > 500 ml blood loss (7ml/kg in children): Yes, adequate IV access and fluids planned Medications/Allergies Home Medications Medication Instructions Recorded Confirmed Last Taken Type capecitabine 150 mg tablet See Rx Instructions .ROUTE .COMPLEX 01/26/21 05/13/21 Unknown History capecitabine 500 mg tablet (Xeloda) See Rx Instructions .ROUTE .COMPLEX 01/26/21 05/13/21 Unknown History prednisone 20 mg tablet 20 mg PO DAILY 01/26/21 05/13/21 03/06/21 History docusate sodium 100 mg capsule 100 mg PO BEDTIME PRN 03/14/21 05/13/21 03/13/21 History (Stool Softener) psyllium husk 0.4 gram capsule 0.4 g PO BEDTIME PRN 03/14/21 05/13/21 Unknown History (Daily Fiber) tiotropium bromide 1.25 1 puff INHALATION DAILY 03/14/21 05/13/21 Unknown History mcg/actuation mist for inhalation (Spiriva Respimat) miscellaneous medical supply #1 ea 03/19/21 05/13/21 Unknown Rx magnesium hydroxide 400 mg/5 mL 30 ml PO BID PRN #400 ml 03/27/21 05/13/21 Unknown Rx oral suspension (Milk of Magnesia) pantoprazole 40 mg tablet,delayed 40 mg PO DAILY #30 tab 04/30/21 05/13/21 Unknown Rx release (Protonix) scopolamine base 1 mg over 3 days 1 patch TRANSDERMAL Q3D PRN #24 ea 04/30/21 05/13/21 05/13/21 Rx transdermal patch hydrocodone 5 mg-acetaminophen 325 1 tab PO Q6H PRN #15 tab 05/07/21 05/13/21 Unknown Rx mg tablet megestrol 20 mg tablet 20 mg PO BID #60 tab 05/07/21 05/13/21 Unknown Rx ondansetron 4 mg disintegrating 4 mg PO TID PRN #15 tab 05/07/21 05/13/21 Unknown Rx tablet albuterol sulfate 90 mcg/actuation 2 puff INHALATION Q6H PRN 05/13/21 05/13/21 Unknown History aerosol inhaler apixaban 5 mg tablet (Eliquis) 5 mg PO BID 05/13/21 05/13/21 Unknown History diazepam 5 mg tablet See Rx Instructions .ROUTE .COMPLEX 05/13/21 05/13/21 Unknown History duloxetine 20 mg capsule,delayed 20 mg PO BID 05/13/21 05/13/21 Unknown History release (Cymbalta) mirtazapine 15 mg disintegrating 15 mg PO BEDTIME 05/13/21 05/13/21 Unknown History tablet oxycodone 5 mg capsule 5 mg PO Q6H PRN 05/13/21 05/13/21 Unknown History tamsulosin 0.4 mg capsule 0.4 mg PO BEDTIME 05/13/21 05/13/21 Unknown History tiotropium 2.5 mcg-olodaterol 2.5 2 puff INHALATION DAILY 05/13/21 05/13/21 Unknown History mcg/actuation mist for inhalation (Stiolto Respimat) Allergies Allergy/AdvReac Type Severity Reaction Status Date / Time No Known Allergies Allergy Verified 04/16/21 13:54 Current Medications Generic Name Dose Route Start Last Admin Trade Name Freq PRN Reason Stop Dose Admin Albuterol/Ipratropium 3 ml 05/17/21 20:00 05/17/21 21:21 Ipratropium-Albuterol 3 Ml Neb INHALATION 3 ml BID.RESPIRATORY MARTÍNEZ Administration Hydrocortisone Sodium Succinate 25 mg 05/15/21 09:00 05/18/21 02:03 Hydrocortisone 100 Mg/2 Ml Sdv IVP 25 mg Q6H MARTÍNEZ Administration Hydromorphone HCl 0.5 mg 05/13/21 17:32 05/18/21 06:04 Hydromorphone 1 Mg/Ml Inj 1 Ml IVP 0.5 mg Q4H PRN Administration PS 6-10 Multivitamins 10 ml/ Amino 1,010 mls @ 42 mls/hr 05/14/21 10:00 05/17/21 12:38 Acids/Electrolytes IV 42 mls/hr .Q24H MARTÍNEZ Administration Fat Emulsion Intravenous 125 mls @ 10.417 mls/hr 05/16/21 23:30 05/17/21 23:13 Intralipid 20% IV 10.42 mls/hr Q24H MARTÍNEZ Administration Ondansetron HCl 4 mg 05/13/21 17:31 05/18/21 00:34 Ondansetron 2 Mg/Ml Sdv 2 Ml IVP 4 mg Q6H PRN Administration NAUSEA AND VOMITING Pantoprazole Sodium 40 mg 05/14/21 09:00 05/17/21 08:17 Pantoprazole 40 Mg Sdv IVP 40 mg DAILY MARTÍNEZ Administration PFSH Anesthesia Medical History (Updated 05/17/21 @ 15:38 by Christian Stephens MD) Acid reflux Anxiety about health Aspiration pneumonia BPH loc w urin obs/LUTS Chronic use of steroids Compression fracture of T11 vertebra Compression fx, thoracic spine Constipation, slow transit COPD (chronic obstructive pulmonary disease) Elevated PSA Essential (primary) hypertension Fracture, thoracic vertebra, compression H/O colon cancer, stage III Lumbar compression fracture Lung cancer Mediastinal lymphadenopathy Prostate CA Sarcoidosis Urinary retention Urinary urgency Surgical History History of liver biopsy / Percutaneous abscess drainage Port-A-Cath in place S/P colon resection 2015 ([place]) -- sigmoid resection for colon cancer / cholecystectomy / incidental appendectomy / umbilical hernia repair Family History Mother , 62 CAD (coronary artery disease) Diabetes Father , 74 Cancer Colon Social History Quit status (tobacco): has tried quititng Second hand smoke exposure: Yes Smoking risk assessment/counseling performed?: No Alcohol intake: never Desire information about alcohol rehabilitation?: No Counseling given: No Desire information about substance/drug rehabilitation?: No Counseling given: No Adopted: No Caregiver/support person: No Lives independently: Yes Household members: none Housing: House Marital status: Current occupational status: retired History of recent travel: No Current gender identity: Male Data Anesthesia : 05/16/21 04:51 05/17/21 04:43 BMP 05/17/21 04:43 Sodium 138 Potassium 3.9 Chloride 108 H Carbon Dioxide 23 BUN 22 Creatinine 0.4 L Glucose 130 H Calcium 7.7 L Liver Function 05/17/21 Range/Units 04:43 Total Bilirubin 0.2 (0.15-1.2) mg/dL AST 59 H (0-40) U/L ALT 79 H (0-41) U/L Alkaline Phosphatase 112 (40-130) IU/L Albumin 2.4 L (3.5-5.2) g/dL Cardiac Studies: Echocardiogram 05/14/21 Echocardiogram Ultrasound 06/19/20 Sestamibi Stress Test (Cardiology) 06/19/20
--- NOTE | 2021-05-18 10:04 | PM.OP ---
Operative Report Date of procedure: May 18, 2021 Pre-op diagnosis: Small bowel obstruction Status post LAR and chemoradiation for rectal cancer Post-op diagnosis: Small bowel obstruction in the jejunum secondary to constricting mass Adhesions from prior bowel resection requiring lysis of adhesions with 20 minutes No intraperitoneal carcinomatosis Rest of the small bowel and colon appeared normal Procedure done: 1. Diagnostic laparoscopy 2. Laparoscopic lysis of adhesions with 20 minutes 3. Small bowel resection with stapled mehm-ql-liqw anastomosis Specimens removed/disposition: Jejunum containing the mass Surgeon: Moncho Carrasco Anesthesia: General Estimated blood loss (mL): 25 Condition: stable Disposition: PACU Procedure: The patient was taken to the waiting room and intubated under general anesthesia. IV antibiotics were administered after timeout was performed. Patient already had an NG tube and Mcarthur catheter in place. The abdomen was prepped and draped in a sterile manner. Using a 15 blade a 1 cm incision was made in the left upper quadrant and using open Powers technique the peritoneal cavity was entered, 10 mm port was placed and 15 mm of pneumoperitoneum was created. A 10 mm 30 degree scope was introduced and 2 separate 5 mm ports were placed in the left lower quadrant and at the level of the umbilicus under direct visualization. There are adhesions in the midline from prior laparotomy for rectal cancer. Laparoscopic lysis of adhesions was performed using LigaSure for 20 minutes. At this point the cecum was identified which was distended and then the small bowel was examined from the ileocecal valve to the ligament of Treitz. In the jejunum a constricting mass was identified which was the site of the bowel obstruction. There were no other abnormalities noted in the small bowel There was no evidence of peritoneal carcinomatosis. Using 15 blade a midline infraumbilical incision was made through the existing scar and using electrocautery subcutaneous tissue, linea alba and the peritoneum was divided to enter the abdominal cavity. The previously identified area of obstruction was exteriorized after a GelPort was placed. Using LigaSure the mesentery was divided up to the edge of the small bowel about 7 cm proximal and distal to the obstructing mass. Interrupted 4-0 Vicryl sutures were placed to approximate the small bowel segments at the site of the planned anastomosis. Using electrocautery enterotomies were created and a 55 mm blue Open English PREM stapler was fired to create a sffx-ai-brps enteroenterostomy. The previously created enterotomies was grasped with Allis clamps and 2 loads of 55 mm blue load PREM stapler was fired to close and divide the small bowel proximal to the anastomosis. 4-0 Vicryl Lembert suture was placed at the intersection of staple lines. The anastomosis appeared patent and the tissue appeared viable. The peritoneal cavity was irrigated with warm saline. The fascia at the left upper quadrant port site was closed using [id number] 0 Vicryl suture. The fascia in the midline was closed using #1 looped PDS. The subcutaneous was approximated using interrupted 3-0 Vicryl suture and skin was closed using a running subcuticular 4-0 Monocryl suture and Dermabond. The patient was extubated and transferred to recovery room with an NG tube and Mcarthur catheter in place.
[2021-05-18] MEDS: fentaNYL 50 mcg/mL INJ 2mL IVP ×2 (10:27→10:37)
--- NOTE | 2021-05-18 10:31 | ANE.PACU2 ---
Inpatient post-anesthesia follow up: Airway intact: Yes Vital signs: Temperature 98.4 F Pulse Rate 91 Respiratory Rate 17 Blood Pressure 124/79 Pulse Oximetry 92 Oxygen Delivery Me thod Nasal Cannula Oxygen Flow Rate 3 Fraction of Inspir ed Oxygen Hydration adequate: Yes Nausea and vomiting: No Pain level: 4 Mental status: Baseline
--- NOTE | 2021-05-18 10:33 | SUR.PHASEI ---
1009 PT TO PACU AWAKES TO VOICE , GOOD RESPIRATIONS NOTED ID BAND TO RT WRIST PT ID WITH 2 IDENTIFIERS, IV TO LT HAND #[id number] CLAMPED OFF WITH 600ML NS UP. PT HAS NG TO LT NARE CLAMPED AND SECURED WITH VENAGUARD. IV TO RT AC PIID. ABD SOFT FLAT WITH 3 TROCAR SITES AND ONE HAND PORT SITE, ALL WITH DERMABOND D/I PT HAS THOMSON CATHETER WITH LT CLEAR YELLOW URINE NOTED TO BAG, EMPTIED. STATLOCK TO RT INNER THIGH. BILAT SCDS ON AND WORKING.
--- NOTE | 2021-05-18 11:12 | SUR.PHASEI ---
PT TO FLOOR PER BED WITH LIPIDS AND TPN INFUSING TO LT SUPCLAVIAN PORT ACESS, OTHER NS IV FLUIDS STOPPED, PT ABDOMEN SOFT HANDOFF AT BEDSIDE, PT INCISION AREAS D/I UNCHANGED , THOMSON PATENT AND SCDS ON AND WORKING. PT AWAKE AND VERBALLY RESPONSIVE , ORIENTED X 3.
--- NOTE | 2021-05-18 11:15 | SUR.PHASEI ---
BP134/85, HR 98, SATS 92% ON 2LNC.
--- NOTE | 2021-05-18 11:19 | PC.NURSE ---
Patient came back from surgery at 1110. Vitals stable. Pain 8/10. NG hooked back up to suction. Patient is resting in bed comfortable. Will continue to monitor.
[2021-05-18] MEDS: HYDROcodone-acetaminophen 5-325 mg Tablet 1 TAB PO (12:36)
--- NOTE | 2021-05-18 14:35 | PC.SOCIAL ---
Explained IM to son and provided copy. All questions answered.
[2021-05-18 15:13] LABS: Basophils % 0.2 %; Hematocrit 32.7 % (42.0-52.0); Hemoglobin 11.1 g/dL (11.7-16.6); Lymphocytes # 0.4 10^3/uL (0.8-4.8); Lymphocytes % 4.7 %; Mean Corpuscular HGB Conc 33.9 g/dL (30.0-36.0); Mean Corpuscular Hemoglobin 28.6 pg (28.0-34.0); Mean Corpuscular Volume 84.3 fl (80-94); Mean Platelet Volume 9.5 fL (7.4-10.4); Monocytes # 0.4 10^3/uL (0.2-0.9); Monocytes % 4.1 %; Neutrophils # 8.17 10^3/uL (1.8-7.7); Neutrophils % 90.2 %; Nucleated Red Blood Cells % 0 %; Platelet Count 185 10^3/cmm (130-400); Red Blood Count 3.88 10^6/uL (4.1-5.3); White Blood Count 9.1 10^3/uL (4.0-10.0)
[2021-05-18] MEDS: piperacillin-tazobactam 3.375 GM in sodium chloride 0.9% (plus) 100 ML IV ×2 (15:21→22:35)
[2021-05-18] MEDS: acetaminophen 1,000 MG/100 ML PIGGYBACK 400 MG IV (15:21)
[2021-05-18 15:34] LABS: Alanine Aminotransferase 102 U/L (0-41); Alkaline Phosphatase 111 IU/L (40-130); Anion Gap 12.4 (5-19); Aspartate Amino Transferase 68 U/L (0-40); Blood Urea Nitrogen 15 mg/dL (8-23); Calcium 8.5 mg/dL (8.5-10.5); Carbon Dioxide 26 mmol/L (22-29); Chloride 102 mmol/L (98-107); Globulin 1.9 g/dL (1.3-4.6); Glucose 154 mg/dL (65-115); Osmolality Calculated 288 mOsm/kg (285-295); Potassium 3.4 mmol/L (3.5-5.1); Sodium 137 mmol/L (136-145); Total Bilirubin 0.7 mg/dL (0.15-1.2); Total Protein 4.9 g/dL (6.6-8.7)
--- NOTE | 2021-05-18 17:13 | PM.PN ---
Subjective Subjective: No acute events overnight. Today morning patient seen postoperatively. He underwent laparoscopic lysis of adhesion and small bowel resection with bvjc-kq-wrfv anastomosis. Patient was found to have a constricting mass in jejunum causing small bowel obstruction. Patient tolerated procedure well. Postoperatively seen comfortably in bed. Hemodynamically stable. With NG tube in place. Complaining of mild pain. Received [place] and Dilaudid. Ordered 1 dose of IV Tylenol. Medications: Reviewed: Yes Vitals/I&O/Wt Last Vital Signs Temp 98.0 F 05/18/21 14:00 Pulse 86 05/18/21 16:00 Resp 16 05/18/21 16:00 BP 114/75 05/18/21 16:00 Pulse Ox 94 05/18/21 16:00 05/18/21 05/18/21 05/18/21 06:59 14:59 22:59 Intake Total 2685.000 / 2685.000 100 / 2785.000 Output Total 1025 / 1975 650 / 650 Balance -1025 / 137 2035.000 / 2035.000 100 / 2135.000 Weight last 48 hrs Weight 64.909 kg Physical Exam Narrative: General: In no acute distress, extremely hard of hearing, AOx3, frail sick appearing HEENT: PERRLA, pupils bilaterally equal and reactive Chest: Normal vesicular breath sounds, no added sounds, equal good air entry bilaterally CVS: S1-S2 regular, no murmurs, no tachycardia, no gallops, no rubs Abdomen: Soft, no tenderness, no guarding today, no rebound tenderness, bowel sounds sluggish Neuro: No focal deficits, no facial deformity, AO x3, power 5/5 in all limbs Urinary Catheter Management: Mcarthur: Cath Placed During This Visit: yes Reason for Continuing Indwelling Catheter: Acute Urinary Retention or Obstruction Urinary Catheter Date of Insertion: 05/13/21 Urinary Catheter Time of Insertion: 17:29 Data : 05/18/21 14:55 05/18/21 14:55 Micro: Microbiology 05/13/21 15:10 Blood Culture - Final Blood NO GROWTH AFTER 5 DAYS 05/13/21 15:10 Blood Culture - Final Blood NO GROWTH AFTER 5 DAYS A&P Assessment and plan (1) Pneumatosis coli: Status: Acute (2) Small bowel obstruction: Status: Acute (3) NOEL (acute kidney injury): Status: Acute (4) Hematochezia: Status: Acute (5) H/O colon cancer, stage III: Status: Acute (6) S/P colon resection: Status: Acute (7) Adult failure to thrive syndrome: Status: Inactive (8) Constipation, slow transit: Status: Chronic (9) Chronic use of steroids: Status: Acute (10) Shock: Resoved Status: Acute (11) Adrenal insufficiency: Status: Suspected (12) Severe protein-energy malnutrition: Status: Acute Plan 75 gentleman past medical history of lung cancer on conservative treatment currently because of compression fractures on chronic steroids, with history of colon cancer post resection presented to the ER today with nausea and vomiting a possible history of hematochezia found to be hypotensive. Small bowel obstruction: Repeat CT scan yesterday concerning for pneumatosis coli. Postoperative day 0 for laparoscopic lysis of radiation, small bowel resection for jejunal constricting mass and epdh-gw-mwva anastomosis. Appreciate surgical recommendations. Anticoagulation and pain medication along with perioperative antibiotics as per surgical team. Protonix daily, Zofran as needed. Shock: Resolved. Most likely hypovolemia versus secondary to his renal insufficiency. Continue with hydrocortisone to 25 mg every 6 hourly. It is equal into patient's home dose of 20 mg of prednisone at home. For now we will continue the same dose patient remains n.p.o. Keep mean arterial pressure over 60 mmHg. Continue with TPN at goal. Stop IV fluids Hematochezia: No further episode. Unclear history. Hemoglobin 10.7 today from 11.6 yesterday. Monitor hemoglobin daily. Iron panel suggestive of anemia of chronic disease. Hold off on IV iron supplementation. NOEL: Resolved. Most likely secondary to dehydration. Stop IV fluids. Continue with TPN. Medical reconciliation done for nephrotoxic drugs. Monitor BMP daily. Failure to thrive: Start on TPN. Dietitian consult. Severe protein energy malnutrition: Dietitian consult. Prealbumin 8. Lost more than 30% of weight in last 3 months. History of lung cancer: Follows up with . History of multiple compression fractures: Follows up with Dr. Miller. Treated conservatively. Dilaudid 0.5 every 4 hours as needed for pain. CODE STATUS: Discussed in detail with patient's son/DPOA. Full code. NPO. TPN. NG tube placement. Protonix for PUD prophylaxis. SCDs for DVT prophylaxis. Patient's care discussed in detail with son over the phone. All the questions were answered. He would also like his /patient's [id number] to be informed. Her name is Vicenta with phone number [phone]. Care discussed in detail with patient's [id number] Ms. Yañez. All the questions were answered. She states either Olesya or herself will be making all the medical decisions. They are okay with Ms. Andres getting the information but does not want her to be making the medical decisions. Asking for a possible placement to SNF. PT evaluation. Case management has been alerted. Plan for today: Postoperative day 0. Continue TPN. Continue hydrocortisone. Perioperative antibiotics and pain management. Discharge planning: Family wanting discharge to SNF. Awaiting placement. 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
--- NOTE | 2021-05-18 19:10 | PC.NURSE ---
Patient went to surgery at beginning of shift. Post operative monitoring was done. Patient is complaining of significant pain, MD aware. Ordered a one time dose of IV acetaminophen. Patient is not stating any relief. Vital signs stable. Surgical incisions are clean and intact. Mcarthur is clean and intact, adequate output. TPN is running at 42 ml/hr. No bowel movement noted this shift. Report given to ROYAL Bolton.
[2021-05-18] MEDS: ipratropium-albuterol 3 mL Neb INHALATION (20:16)
[2021-05-19] VITALS (14 sets, daily range): BP systolic 105–123; BP diastolic 62–85; PULSE 65–94; RESP 16–20; TEMP 36.6–37.1; O2SAT 94–97; BMI 20.5
[2021-05-19] MEDS: HYDROmorphone 1 mg/mL INJ 1 mL 0.5 MG IVP ×6 (01:48→23:31)
[2021-05-19] MEDS: hydrocortisone 100 mg/2 mL SDV 25 MG IVP ×4 (01:49→20:30)
[2021-05-19] MEDS: HYDROcodone-acetaminophen 5-325 mg Tablet 1 TAB PO ×3 (03:16→20:35)
[2021-05-19 05:08] LABS: Basophils % 0.1 %; Hematocrit 30.7 % (42.0-52.0); Hemoglobin 10.3 g/dL (11.7-16.6); Lymphocytes # 0.3 10^3/uL (0.8-4.8); Lymphocytes % 4.1 %; Mean Corpuscular HGB Conc 33.6 g/dL (30.0-36.0); Mean Corpuscular Hemoglobin 28.1 pg (28.0-34.0); Mean Corpuscular Volume 83.9 fl (80-94); Mean Platelet Volume 10.2 fL (7.4-10.4); Monocytes # 0.1 10^3/uL (0.2-0.9); Monocytes % 1.4 %; Neutrophils # 7.51 10^3/uL (1.8-7.7); Neutrophils % 93.5 %; Nucleated Red Blood Cells % 0 %; Platelet Count 191 10^3/cmm (130-400); Red Blood Count 3.66 10^6/uL (4.1-5.3); Red Cell Distribution Width 15.9 % (12.1-15.1)
[2021-05-19 05:26] LABS: Alanine Aminotransferase 121 U/L (0-41); Albumin Level 2.8 g/dL (3.5-5.2); Alkaline Phosphatase 115 IU/L (40-130); Aspartate Amino Transferase 72 U/L (0-40); Blood Urea Nitrogen 19 mg/dL (8-23); Calcium 7.7 mg/dL (8.5-10.5); Carbon Dioxide 27 mmol/L (22-29); Chloride 100 mmol/L (98-107); Globulin 1.5 g/dL (1.3-4.6); Glucose 138 mg/dL (65-115); Osmolality Calculated 284 mOsm/kg (285-295); Sodium 135 mmol/L (136-145); Total Bilirubin 0.5 mg/dL (0.15-1.2); Total Protein 4.3 g/dL (6.6-8.7)
[2021-05-19 05:27] LABS: Anion Gap 11.3 (5-19); Potassium 3.3 mmol/L (3.5-5.1)
[2021-05-19] MEDS: piperacillin-tazobactam 3.375 GM in sodium chloride 0.9% (plus) 100 ML IV ×3 (06:01→23:31)
[2021-05-19] MEDS: pantoprazole 40 mg SDV IVP (08:20)
[2021-05-19] MEDS: enoxaparin 40 mg/0.4 mL Syringe SUBCUT (09:39)
--- NOTE | 2021-05-19 13:04 | P.PN_ITS ---
Subjective Subjective: Patient complains of abdominal pain, is able to sit up in bed today, NG output was 800 cc though oral intake was 300 cc. No flatus or BM. Vitals/I&O/Wt Last Vital Signs Temp 98.7 F 05/19/21 12:00 Pulse 76 05/19/21 12:00 Resp 18 05/19/21 12:00 BP 105/73 05/19/21 12:00 Pulse Ox 94 05/19/21 12:00 05/18/21 05/19/21 05/19/21 22:59 06:59 14:59 Intake Total 190.417 / 3268.333 392.916 / 3268.333 125 / 125 Output Total 1150 / 2850 1050 / 2850 Balance -959.583 / 418.333 -657.084 / 418.333 125 / 125 Weight last 48 hrs Weight 145 lb 6.4 oz Weight 143 lb 1.6 oz Physical Exam Narrative: Abdomen: Soft, nondistended, tender, incision clean dry and intact, NG to LIS, Mcarthur to gravity Urinary Catheter Management: Mcarthur: Cath Placed During This Visit: yes Reason for Continuing Indwelling Catheter: Acute Urinary Retention or Obstruction Urinary Catheter Date of Insertion: 05/13/21 Urinary Catheter Time of Insertion: 17:29 Data : 05/19/21 04:36 05/19/21 04:36 Micro: Microbiology 05/13/21 15:10 Blood Culture - Final Blood NO GROWTH AFTER 5 DAYS 05/13/21 15:10 Blood Culture - Final Blood NO GROWTH AFTER 5 DAYS A&P Assessment and plan (1) S/P small bowel resection: 75-year-old male status post small bowel resection for small bowel obstruction. 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
[2021-05-19] MEDS: lidocaine 1% 5 ML in potassium chloride premix 100 ML 25 ML IV ×2 (14:10→18:04)
--- NOTE | 2021-05-19 16:40 | PM.PN ---
Subjective Subjective: No acute events overnight. Had 800 cc output from NG tube. Denies any nausea or vomiting. Complaining of abdominal pain. Medications: Reviewed: Yes Vitals/I&O/Wt Last Vital Signs Temp 98.2 F 05/19/21 16:00 Pulse 76 05/19/21 16:00 Resp 16 05/19/21 16:00 BP 122/85 05/19/21 16:00 Pulse Ox 97 05/19/21 16:00 05/19/21 05/19/21 05/19/21 06:59 14:59 22:59 Intake Total 392.916 / 3268.333 1219 / 1219 Output Total 1050 / 2850 Balance -657.084 / 040.967 8311 / 1219 Weight last 48 hrs Weight 65.952 kg Weight 64.909 kg Physical Exam Narrative: General: In no acute distress, extremely hard of hearing, AOx3, frail sick appearing HEENT: PERRLA, pupils bilaterally equal and reactive Chest: Normal vesicular breath sounds, no added sounds, equal good air entry bilaterally CVS: S1-S2 regular, no murmurs, no tachycardia, no gallops, no rubs Abdomen: Soft, no tenderness, no guarding today, no rebound tenderness, bowel sounds sluggish Neuro: No focal deficits, no facial deformity, AO x3, power 5/5 in all limbs Urinary Catheter Management: Mcarthur: Cath Placed During This Visit: yes Reason for Continuing Indwelling Catheter: Acute Urinary Retention or Obstruction Urinary Catheter Date of Insertion: 05/13/21 Urinary Catheter Time of Insertion: 17:29 Data : 05/19/21 04:36 05/19/21 04:36 Micro: Microbiology 05/13/21 15:10 Blood Culture - Final Blood NO GROWTH AFTER 5 DAYS 05/13/21 15:10 Blood Culture - Final Blood NO GROWTH AFTER 5 DAYS A&P Assessment and plan (1) Pneumatosis coli: Status: Acute (2) Small bowel obstruction: Status: Acute (3) NOEL (acute kidney injury): Status: Acute (4) Hematochezia: Status: Acute (5) H/O colon cancer, stage III: Status: Acute (6) S/P colon resection: Status: Acute (7) Adult failure to thrive syndrome: Status: Inactive (8) Constipation, slow transit: Status: Chronic (9) Chronic use of steroids: Status: Acute (10) Shock: Resoved Status: Acute (11) Adrenal insufficiency: Status: Suspected (12) Severe protein-energy malnutrition: Status: Acute Plan 75 gentleman past medical history of lung cancer on conservative treatment currently because of compression fractures on chronic steroids, with history of colon cancer post resection presented to the ER today with nausea and vomiting a possible history of hematochezia found to be hypotensive. Small bowel obstruction: Repeat CT scan yesterday concerning for pneumatosis coli. Postoperative day 1 for laparoscopic lysis of radiation, small bowel resection for jejunal constricting mass and lcgu-qi-sbte anastomosis. Appreciate surgical recommendations. Start on anticoagulation. Stop antibiotics. Pain medication as per surgical team Protonix daily, Zofran as needed. Shock: Resolved. Most likely hypovolemia versus secondary to his renal insufficiency. Continue with hydrocortisone to 25 mg every 6 hourly. It is equal into patient's home dose of 20 mg of prednisone at home. For now we will continue the same dose patient remains n.p.o. Keep mean arterial pressure over 60 mmHg. Continue with TPN at goal. Stop IV fluids Hematochezia: No further episode. Unclear history. Hemoglobin 10.7 today from 11.6 yesterday. Monitor hemoglobin daily. Iron panel suggestive of anemia of chronic disease. Hold off on IV iron supplementation. NOEL: Resolved. Most likely secondary to dehydration. Stop IV fluids. Continue with TPN. Medical reconciliation done for nephrotoxic drugs. Monitor BMP daily. Failure to thrive: Start on TPN. Dietitian consult. Severe protein energy malnutrition: Dietitian consult. Prealbumin 8. Lost more than 30% of weight in last 3 months. History of lung cancer: Follows up with . History of multiple compression fractures: Follows up with Dr. Miller. Treated conservatively. Dilaudid 0.5 every 4 hours as needed for pain. CODE STATUS: Discussed in detail with patient's son/DPOA. Full code. NPO. TPN. NG tube placement. Protonix for PUD prophylaxis. SCDs for DVT prophylaxis. Patient's care discussed in detail with son over the phone. All the questions were answered. He would also like his /patient's [id number]-[id number] to be informed. Her name is Vicenta with phone number [phone]. Care discussed in detail with patient's [id number]-[id number] Ms. Yañez. All the questions were answered. She states either Olesya or herself will be making all the medical decisions. They are okay with Ms. Andres getting the information but does not want her to be making the medical decisions. Asking for a possible placement to SNF. PT evaluation. Case management has been alerted. Plan for today: Continue TPN. Stop antibiotics. Start on Lovenox. DC Mcarthur. Out of bed to chair. Awaiting bowel movement before initiation of oral diet Discharge planning: Family wanting discharge to SNF. Awaiting placement. Attestations Medical Necessity Statement*: Requires further hospitalization for management of small bowel obstruction, pneumatosis coli in setting of history of rectal cancer, failure to thrive, severe protein energy malnutrition while safe discharge planning is sought. Time Spent in Patient Care: 16 - 35 minutes Coding Level of Care Code Acute Rn Prior Authorization for g Fwd Diagnoses Pneumatosis coli K63.89 Small bowel obstruction K56.609 NOEL (acute kidney injury) N17.9 Hematochezia K92.1 H/O colon cancer, stage III Z85.038 S/P colon resection Z90.49 Adult failure to thrive syndrome R62.7 Constipation, slow transit K59.01 Chronic use of steroids Shock R57.9 Adrenal insufficiency E27.40 Severe protein-energy malnutrition E43
--- NOTE | 2021-05-19 16:45 | PC.NURSE ---
Patients pain has improved today. Vitals signs stable. No bowel movement. NG still intact and draining. TPNs running at 42 ml.hr. Patient remains NPO. Patient recieved abx as ordered. Worked with PT and sat on the side of the bed. This morning patient was very congested and lung sounds were crackled. Patient has been encouraged to cough. Will continue to monitor and give report to night nurse.
[2021-05-19] MEDS: sennosides-docusate Tablet 1 TAB PO (18:03)
[2021-05-20] VITALS (16 sets, daily range): BP systolic 110–123; BP diastolic 69–83; PULSE 86–107; RESP 14–20; TEMP 36.3–36.7; O2SAT 90–97
[2021-05-20] MEDS: hydrocortisone 100 mg/2 mL SDV 25 MG IVP ×4 (03:06→23:49)
[2021-05-20] MEDS: HYDROmorphone 1 mg/mL INJ 1 mL 0.5 MG IVP ×3 (05:42→20:45)
[2021-05-20 06:09] LABS: Basophils % 0.2 %; Eosinophils % 0.1 %; Hematocrit 33.6 % (42.0-52.0); Hemoglobin 11.2 g/dL (11.7-16.6); Lymphocytes # 0.5 10^3/uL (0.8-4.8); Lymphocytes % 5.2 %; Mean Corpuscular HGB Conc 33.3 g/dL (30.0-36.0); Mean Corpuscular Hemoglobin 28.4 pg (28.0-34.0); Mean Corpuscular Volume 85.1 fl (80-94); Mean Platelet Volume 9.6 fL (7.4-10.4); Monocytes # 0.1 10^3/uL (0.2-0.9); Monocytes % 0.6 %; Neutrophils # 8.28 10^3/uL (1.8-7.7); Neutrophils % 93.2 %; Nucleated Red Blood Cells % 0 %; Platelet Count 181 10^3/cmm (130-400); Red Blood Count 3.95 10^6/uL (4.1-5.3); Red Cell Distribution Width 16.2 % (12.1-15.1); White Blood Count 8.9 10^3/uL (4.0-10.0)
[2021-05-20 06:37] LABS: Alanine Aminotransferase 102 U/L (0-41); Albumin Level 2.8 g/dL (3.5-5.2); Alkaline Phosphatase 123 IU/L (40-130); Anion Gap 9.9 (5-19); Aspartate Amino Transferase 37 U/L (0-40); Blood Urea Nitrogen 22 mg/dL (8-23); Calcium 8.6 mg/dL (8.5-10.5); Carbon Dioxide 27 mmol/L (22-29); Chloride 102 mmol/L (98-107); Globulin 2.1 g/dL (1.3-4.6); Glucose 99 mg/dL (65-115); Osmolality Calculated 283 mOsm/kg (285-295); Potassium 3.9 mmol/L (3.5-5.1); Sodium 135 mmol/L (136-145); Total Bilirubin 0.4 mg/dL (0.15-1.2); Total Protein 4.9 g/dL (6.6-8.7)
[2021-05-20 07:32] LABS: Slide Review Slide Review Perform
[2021-05-20] MEDS: enoxaparin 40 mg/0.4 mL Syringe SUBCUT (10:16)
[2021-05-20] MEDS: pantoprazole 40 mg SDV IVP (10:16)
--- NOTE | 2021-05-20 12:05 | PC.NURSE ---
PT REFUSE PO PAIN MEDS AT APPROX. 1015
--- NOTE | 2021-05-20 12:24 | P.PN_ITS ---
Subjective Subjective: Patient still mainly complains of throat irritation and abdominal pain, no nausea or vomiting, flatus or BM Medications: Reviewed: Yes Vitals/I&O/Wt Last Vital Signs Temp 97.3 F L 05/20/21 04:00 Pulse 91 05/20/21 08:10 Resp 16 05/20/21 08:10 BP 119/70 05/20/21 08:00 Pulse Ox 95 05/20/21 08:10 05/19/21 05/20/21 05/20/21 22:59 06:59 14:59 Intake Total 97.5 / 1621.5 305 / 1621.5 Output Total 800 / 1500 700 / 1500 450 / 450 Balance -702.5 / 121.5 -395 / 121.5 -450 / -450 Weight last 48 hrs Weight 146 lb 4.8 oz Weight 145 lb 6.4 oz Weight 143 lb 1.6 oz Physical Exam Narrative: Abdomen: Soft left, mildly tender, nondistended, incision clean dry intact, NG to LIS Urinary Catheter Management: Mcarthur: Cath Placed During This Visit: yes Reason for Continuing Indwelling Catheter: Acute Urinary Retention or Obstruction Urinary Catheter Date of Insertion: 05/20/21 Urinary Catheter Time of Insertion: 01:07 Data : 05/20/21 06:01 05/20/21 06:01 A&P Assessment and plan (1) S/P small bowel resection: 75-year-old male status post small bowel resection for small bowel obstruction. 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
--- NOTE | 2021-05-20 14:14 | PC.SOCIAL ---
IMM Update Updated pt on IMM. No questions voiced. Provided pt a copy. Initialed, dated, & timed copy in chart.
--- NOTE | 2021-05-20 15:54 | P.PN_ITS ---
Subjective Subjective: Feels like he is about to have a bowel movement. Was afraid to pass flatus so as not to lose control of his bowels. Helped to the commode. Vitals/I&O/Wt Last Vital Signs Temp 97.7 F 05/20/21 12:00 Pulse 106 H 05/20/21 12:00 Resp 18 05/20/21 12:27 BP 123/69 05/20/21 12:00 Pulse Ox 95 05/20/21 12:27 05/20/21 05/20/21 05/20/21 06:59 14:59 22:59 Intake Total 305 / 1621.5 1135 / 1135 Output Total 700 / 1500 450 / 450 Balance -395 / 121.5 685 / 685 Weight last 48 hrs Weight 66.361 kg Weight 65.952 kg Weight 64.909 kg Physical Exam Const: COMMON NORMALS: no acute distress and patient oriented x3 NUTRITIONAL APPEARANCE: thin OTHER: Very [place]. Irritable. Very weak getting out of bed, requiring multiple person assist. HENMT: COMMON NORMALS: oropharynx normal OTHER: NGT Neck/C-Spine: COMMON NORMALS: no JVD Resp: COMMON NORMALS: normal respiratory effort and clear to auscultation bilaterally AUSCULTATION: clear to auscultation bilaterally Cardio: COMMON NORMALS: no JVD GI: COMMON NORMALS: Soft to palpation PALPATION: Yes Soft to palpation Extremity: COMMON NORMALS: no joint enlargement and no pedal edema Neuro: COMMON NORMALS: patient oriented x3 and moves all extremities Skin: COMMON NORMALS: no rashes or lesions noted GENERAL SKIN EXAM: no rashes or lesions noted Urinary Catheter Management: Mcarthur: Cath Placed During This Visit: yes Reason for Continuing Indwelling Catheter: Acute Urinary Retention or Obstruction Urinary Catheter Date of Insertion: 05/20/21 Urinary Catheter Time of Insertion: 01:07 Data : 05/20/21 06:01 05/20/21 06:01 A&P Assessment and plan (1) S/P small bowel resection: Has been awaiting return of bowel function. Currently appears may be having a bowel movement. TPN currently, pending resumption of oral intake. Status: Acute (2) Small bowel mass: Pending pathology. Unknown new mass leading to obstruction of small bowel. Status: Acute (3) Small bowel obstruction: Status post small bowel resection. Status: Acute (4) Adult failure to thrive syndrome: Very weak with functional decline, severe deconditioning, malnourished with muscle mass loss, reported lost 80 pounds recently, requiring multi person assist today to get to the commode. Continue TPN for now, pending resumption of oral intake. Continue to mobilize, PT, OT assessment. CM working on post discharge planning. Status: Inactive (5) NOEL (acute kidney injury): Improved. Status: Acute (6) Pneumatosis coli: Status: Acute (7) Hematochezia: Pending pathology on small bowel mass. Status: Acute (8) H/O colon cancer, stage III: Status: Acute (9) S/P colon resection: Status: Acute (10) Constipation, slow transit: Status: Chronic (11) Chronic use of steroids: Status: Acute (12) Shock: Resoved Status: Acute (13) Adrenal insufficiency: Continue hydrocortisone Status: Suspected (14) Severe protein-energy malnutrition: Status: Acute Plan 75 gentleman past medical history of lung cancer on conservative treatment currently because of compression fractures on chronic steroids, with history of colon cancer post resection presented to the ER today with nausea and vomiting a possible history of hematochezia found to be hypotensive. Failure to thrive: TPN. Awaiting resumptino of PO intake. Dietitian consult. Severe protein energy malnutrition: Dietitian consult. Prealbumin 8. Lost more than 30% of weight in last 3 months. History of lung cancer: Follows up with . History of multiple compression fractures: Follows up with Dr. Miller. Treated conservatively. Discussed with pharmacy, hydrocodone via NG tube. Wean off IV Dilaudid. His condition discussed with his son. Attestations Medical Necessity Statement*: Continue admission pending return of bowel function currently with inability to take oral intake following small bowel obstruction, resection, with newfound mass, with functional decline, severe deconditioning, malnutrition, post discharge planning and arrangements. 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
[2021-05-20] MEDS: ipratropium-albuterol 3 mL Neb INHALATION (22:05)
[2021-05-21] VITALS (12 sets, daily range): BP systolic 116–141; BP diastolic 69–94; PULSE 67–110; RESP 16–20; TEMP 36.4–36.7; O2SAT 92–97
[2021-05-21] MEDS: HYDROmorphone 1 mg/mL INJ 1 mL 0.5 MG IVP ×4 (00:46→20:20)
--- NOTE | 2021-05-21 00:56 | XRR_ITS ---
PROCEDURE INFORMATION: Exam: XR Chest Exam date and time: 05/21/2021 12:56 AM Age: 75 years old Clinical indication: Device placement; Ng tube; Additional info: Ng tube placement verification TECHNIQUE: Imaging protocol: XR of the chest. Views: 1 view. COMPARISON: CR XR chest 1V portable [id number] 05/14/2021 4:34 PM FINDINGS: Tubes, catheters and devices: NG tube courses below the diaphragm with nonvisualization of the tip. Left chest wall port catheter with the tip is not well visualized on this study. Lungs: Left basilar opacity which may be seen with pneumonia or atelectasis. Pleural spaces: Left pleural effusion. Heart/Mediastinum: No cardiomegaly. Bones/joints: Prior vertebroplasty noted in the thoracic spine. Chronic appearing rib fractures. XR/XR chest 1V portable [id number] IMPRESSION: Left basilar opacity which may be seen with pneumonia or atelectasis. Left pleural effusion.
--- NOTE | 2021-05-21 03:34 | PC.NURSE ---
This nurse spoke with night time hospitalist Dr. Chavis about CXR for NG tube placement , Dr. Chavis stated he felt the NG tube was in a good position and gave nurse permission to resume low intermittent suction. Suction resumed at 0300.
[2021-05-21] MEDS: hydrocortisone 100 mg/2 mL SDV 25 MG IVP ×3 (06:09→17:48)
[2021-05-21 06:10] LABS: Basophils % 0.1 %; Eosinophils % 0.3 %; Hematocrit 33.5 % (42.0-52.0); Hemoglobin 11.2 g/dL (11.7-16.6); Lymphocytes # 1.3 10^3/uL (0.8-4.8); Lymphocytes % 13.2 %; Mean Corpuscular HGB Conc 33.4 g/dL (30.0-36.0); Mean Corpuscular Hemoglobin 28.2 pg (28.0-34.0); Mean Corpuscular Volume 84.4 fl (80-94); Monocytes # 0.3 10^3/uL (0.2-0.9); Monocytes % 2.7 %; Neutrophils # 8.13 10^3/uL (1.8-7.7); Neutrophils % 83.2 %; Nucleated Red Blood Cells % 0 %; Platelet Count 190 10^3/cmm (130-400); Red Blood Count 3.97 10^6/uL (4.1-5.3); Red Cell Distribution Width 16.1 % (12.1-15.1); White Blood Count 9.8 10^3/uL (4.0-10.0)
[2021-05-21 06:27] LABS: Anion Gap 12.4 (5-19); Blood Urea Nitrogen 17 mg/dL (8-23); Calcium 7.9 mg/dL (8.5-10.5); Carbon Dioxide 27 mmol/L (22-29); Chloride 100 mmol/L (98-107); Glucose 113 mg/dL (65-115); Osmolality Calculated 284 mOsm/kg (285-295); Potassium 3.4 mmol/L (3.5-5.1); Sodium 136 mmol/L (136-145)
--- NOTE | 2021-05-21 07:47 | XRR_ITS ---
PROCEDURE INFORMATION: Exam: XR Abdomen Exam date and time: 05/21/2021 7:47 AM Age: 75 years old Clinical indication: Condition or disease; Intestinal condition; Other: Gi bleed; Prior surgery; Surgery date: Post-operative (0-2 days); Additional info: S/P sb resection TECHNIQUE: Imaging protocol: XR of the abdomen. Views: 2 Views. Upright and supine views. COMPARISON: CT abdomen pelvis w con* [id number] 05/17/2021 1:11 PM FINDINGS: Tubes, catheters and devices: Termination of feeding tube in the proximal stomach. Gastrointestinal tract: Enteric contrast in the colon, without significant bowel dilatation. Bones/joints: Osteopenia, compression fractures, and degenerative change. XR/XR abdomen min 2V [id number] IMPRESSION: 1. Enteric contrast in the colon, without significant bowel dilatation. 2. Additional findings as described above.
[2021-05-21] MEDS: ipratropium-albuterol 3 mL Neb INHALATION ×2 (09:51→20:18)
[2021-05-21] MEDS: sennosides-docusate Tablet 1 TAB PO (10:26)
[2021-05-21] MEDS: pantoprazole 40 mg SDV IVP (10:26)
[2021-05-21] MEDS: enoxaparin 40 mg/0.4 mL Syringe SUBCUT (10:29)
--- NOTE | 2021-05-21 13:15 | PM.PN ---
Subjective Subjective: Very hard of hearing, having to yell into his ear No success with bowel movement so far. Feels he may have passed some flatus. Still bothered by some discomfort in his abdomen. Not hungry, but may have had a few moments where he was. He does not want to, but states that he needs to get up and walk around and intends to do so a little bit later this afternoon. Vitals/I&O/Wt Last Vital Signs Temp 97.9 F 05/21/21 07:10 Pulse 109 H 05/21/21 09:52 Resp 20 H 05/21/21 09:52 BP 141/89 05/21/21 07:10 Pulse Ox 93 05/21/21 09:52 05/20/21 05/21/21 05/21/21 22:59 06:59 14:59 Output Total 600 / 1050 1050 / 2100 Balance -600 / 85 -1050 / -965 Weight last 48 hrs Weight 64.954 kg Weight 66.361 kg Physical Exam Const: COMMON NORMALS: no acute distress and patient oriented x3 NUTRITIONAL APPEARANCE: thin OTHER: Very [place]. Irritable. Very weak getting out of bed, requiring multiple person assist. HENMT: COMMON NORMALS: oropharynx normal OTHER: NGT Neck/C-Spine: COMMON NORMALS: no JVD Resp: COMMON NORMALS: normal respiratory effort and clear to auscultation bilaterally AUSCULTATION: clear to auscultation bilaterally Cardio: COMMON NORMALS: no JVD GI: COMMON NORMALS: Soft to palpation INSPECTION: Yes abdominal distension PALPATION: Yes Soft to palpation Extremity: COMMON NORMALS: no joint enlargement and no pedal edema Neuro: COMMON NORMALS: patient oriented x3 and moves all extremities Skin: COMMON NORMALS: no rashes or lesions noted GENERAL SKIN EXAM: no rashes or lesions noted Urinary Catheter Management: Mcarthur: Cath Placed During This Visit: yes Reason for Continuing Indwelling Catheter: Acute Urinary Retention or Obstruction Urinary Catheter Date of Insertion: 05/20/21 Urinary Catheter Time of Insertion: 01:07 Data : 05/21/21 05:43 05/21/21 05:43 A&P Assessment and plan (1) S/P small bowel resection: No success with bowel movement. Feels he may have passed some flatus. Intends to ask for help to walk around later this afternoon. Encouraged him to do so. Pending return of bowel function. TPN currently, pending resumption of oral intake. Status: Acute (2) Small bowel mass: Pending pathology. Unknown new mass leading to obstruction of small bowel. Status: Acute (3) Small bowel obstruction: Status post small bowel resection. Status: Acute (4) Adult failure to thrive syndrome: Very weak with functional decline, severe deconditioning, malnourished with muscle mass loss, reported lost 80 pounds recently, requiring multi person assist today to get to the commode. Continue TPN for now, pending resumption of oral intake. Continue to mobilize, PT, OT assessment. CM working on post discharge planning. Status: Inactive (5) NOEL (acute kidney injury): Improved. Status: Acute (6) Pneumatosis coli: Status: Acute (7) Hematochezia: Pending pathology on small bowel mass. Status: Acute (8) H/O colon cancer, stage III: Status: Acute (9) S/P colon resection: Status: Acute (10) Constipation, slow transit: Status: Chronic (11) Chronic use of steroids: Status: Acute (12) Shock: Resoved Status: Acute (13) Adrenal insufficiency: Continue hydrocortisone Status: Suspected (14) Severe protein-energy malnutrition: Status: Acute Plan 75 gentleman past medical history of lung cancer on conservative treatment currently because of compression fractures on chronic steroids, with history of colon cancer post resection presented to the ER today with nausea and vomiting a possible history of hematochezia found to be hypotensive. Failure to thrive: TPN. Awaiting resumptino of PO intake. Dietitian consult. Severe protein energy malnutrition: Dietitian consult. Prealbumin 8. Lost more than 30% of weight in last 3 months. History of lung cancer: Follows up with . History of multiple compression fractures: Follows up with Dr. Miller. Treated conservatively. Discussed with pharmacy, hydrocodone via NG tube. Wean off IV Dilaudid. His condition discussed with his son. Attestations Medical Necessity Statement*: Continue admission pending return of bowel function following small bowel mass resection. 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
[2021-05-21] MEDS: ondansetron 2 mg/ML SDV 2 mL 4 MG IVP (15:37)
--- NOTE | 2021-05-21 16:33 | PM.PN ---
Subjective Subjective: patient complaining of abdominal pain, some nausea this afternoon as per nursing, NG output was 200 cc yesterday. Passing flatus, no BM Vitals/I&O/Wt Last Vital Signs Temp 97.8 F 05/21/21 16:00 Pulse 67 05/21/21 16:00 Resp 16 05/21/21 16:00 BP 126/80 05/21/21 16:00 Pulse Ox 92 05/21/21 16:00 05/21/21 05/21/21 05/21/21 06:59 14:59 22:59 Output Total 1050 / 2100 Balance -1050 / -965 Weight last 48 hrs Weight 143 lb 3.2 oz Weight 146 lb 4.8 oz Physical Exam Narrative: Abdomen: Soft, nondistended, minimally tender, incision clean dry and intact, NG to LIS Urinary Catheter Management: Mcarthur: Cath Placed During This Visit: yes Reason for Continuing Indwelling Catheter: Acute Urinary Retention or Obstruction Urinary Catheter Date of Insertion: 05/20/21 Urinary Catheter Time of Insertion: 01:07 Data : 05/21/21 05:43 05/21/21 05:43 A&P Assessment and plan (1) S/P small bowel resection: 75-year-old male status post small bowel resection for small bowel obstruction. Patient is hemodynamically stable, awaiting return of bowel function Mcarthur had to be replaced due to urinary retention after discontinuing it Abdominal x-ray shows contrast in the colon Clamp NG tube, start clear liquid diet Lovenox for DVT prophylaxis Continue Protonix for GI prophylaxis Daily labs Milk of molasses enema today Status: Acute (2) Severe protein-energy malnutrition: Continue TPN Status: Acute Attestations Medical Necessity Statement*: As per primary Coding Level of Care Code Acute Manager Rail for [facility] 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
[2021-05-21] MEDS: lactulose oral liq 20 gm/30 mL UDC 10 GM PO (17:42)
--- NOTE | 2021-05-21 19:03 | PC.NURSE ---
Attempted to give patient milk of molasses enema and patient was unable to hold enema in.
[2021-05-22] VITALS (13 sets, daily range): BP systolic 106–145; BP diastolic 52–91; PULSE 81–95; RESP 17–18; TEMP 36.7–36.8; O2SAT 91–96
[2021-05-22] MEDS: hydrocortisone 100 mg/2 mL SDV 25 MG IVP ×5 (00:27→23:59)
[2021-05-22] MEDS: HYDROmorphone 1 mg/mL INJ 1 mL 0.5 MG IVP ×4 (02:53→23:58)
[2021-05-22 06:01] LABS: Basophils % 0.1 %; Eosinophils % 0.1 %; Hematocrit 28.3 % (42.0-52.0); Hemoglobin 9.4 g/dL (11.7-16.6); Lymphocytes # 1.4 10^3/uL (0.8-4.8); Mean Corpuscular HGB Conc 33.2 g/dL (30.0-36.0); Mean Corpuscular Hemoglobin 28.3 pg (28.0-34.0); Mean Corpuscular Volume 85.2 fl (80-94); Mean Platelet Volume 10.2 fL (7.4-10.4); Monocytes # 0.3 10^3/uL (0.2-0.9); Monocytes % 3.5 %; Neutrophils # 6.93 10^3/uL (1.8-7.7); Neutrophils % 79.7 %; Nucleated Red Blood Cells % 0.3 %; Platelet Count 211 10^3/cmm (130-400); Red Blood Count 3.32 10^6/uL (4.1-5.3); Red Cell Distribution Width 16.4 % (12.1-15.1); White Blood Count 8.7 10^3/uL (4.0-10.0)
[2021-05-22 06:21] LABS: Anion Gap 10.5 (5-19); Blood Urea Nitrogen 15 mg/dL (8-23); Calcium 7.6 mg/dL (8.5-10.5); Carbon Dioxide 26 mmol/L (22-29); Chloride 101 mmol/L (98-107); Glucose 118 mg/dL (65-115); Osmolality Calculated 280 mOsm/kg (285-295); Potassium 3.5 mmol/L (3.5-5.1); Sodium 134 mmol/L (136-145)
[2021-05-22] MEDS: pantoprazole 40 mg SDV IVP (07:57)
[2021-05-22] MEDS: ipratropium-albuterol 3 mL Neb INHALATION ×2 (08:05→20:29)
[2021-05-22] MEDS: methylnaltrexone 12 /0.6 mL INJ 12 MG SUBCUT (09:15)
[2021-05-22] MEDS: enoxaparin 40 mg/0.4 mL Syringe SUBCUT (11:16)
--- NOTE | 2021-05-22 11:37 | PC.SOCIAL ---
IMM Update pg 2 of IMM updated and reviewed w/ patient. Copy provided and copy in chart updated.
--- NOTE | 2021-05-22 11:39 | PC.NURSE ---
Enema given and patient only able to hold half of enema. Patient was placed on a bedpan per request.
[2021-05-22] MEDS: ondansetron 2 mg/ML SDV 2 mL 4 MG IVP (15:20)
--- NOTE | 2021-05-22 16:07 | PM.PN ---
Subjective Subjective: Patient complains of abdominal pain, no nausea or vomiting with the NG tube clamped. He would like to have regular food. Tolerated clears Vitals/I&O/Wt Last Vital Signs Temp 98.2 F 05/22/21 12:03 Pulse 95 05/22/21 12:03 Resp 18 05/22/21 12:03 BP 145/91 05/22/21 12:03 Pulse Ox 91 05/22/21 12:03 05/22/21 05/22/21 05/22/21 06:59 14:59 22:59 Intake Total 100 / 1475 125 / 125 Output Total 350 / 875 Balance -250 / 600 125 / 125 Weight last 48 hrs Weight 143 lb 3.2 oz Physical Exam Narrative: Abdomen: Soft, nondistended, minimally tender, incision clean dry and intact, NG is clamped Urinary Catheter Management: Mcarthur: Cath Placed During This Visit: yes Reason for Continuing Indwelling Catheter: Other Urinary Catheter Date of Insertion: 05/20/21 Urinary Catheter Time of Insertion: 01:07 Data : 05/22/21 05:38 05/22/21 05:38 A&P Assessment and plan (1) S/P small bowel resection: 75-year-old male status post small bowel resection for small bowel obstruction. Patient is hemodynamically stable, awaiting return of bowel function Mcarthur had to be replaced due to urinary retention after discontinuing it Abdominal x-ray shows contrast in the colon DC NG tube, advance to full liquid diet Lovenox for DVT prophylaxis Continue Protonix for GI prophylaxis Daily labs Patient did not tolerate enema, will try Dulcolax suppository. 1 bottle of magnesium citrate today Senna S and lactulose for bowel regimen Status: Acute (2) Severe protein-energy malnutrition: Continue TPN Status: Acute Attestations Medical Necessity Statement*: As per primary Coding Level of Care Code Acute Medical Technologist Blood Bank for [facility] 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
[2021-05-22] MEDS: bisacodyl 10 mg Supp PR (17:51)
[2021-05-22] MEDS: lactulose oral liq 20 gm/30 mL UDC 10 GM PO (17:51)
--- NOTE | 2021-05-22 20:09 | PM.PN ---
Subjective Subjective: Working with physical therapy, walked to the door with a walker, became worn out, had to sit down when getting back to the chair. Oxygen saturation maintained well on 3 L nasal cannula. Still no bowel movement. Reports had passed some flatus. Vitals/I&O/Wt Last Vital Signs Temp 98.2 F 05/22/21 16:35 Pulse 90 05/22/21 16:35 Resp 18 05/22/21 17:49 BP 124/82 05/22/21 16:35 Pulse Ox 96 05/22/21 16:35 05/22/21 05/22/21 05/22/21 06:59 14:59 22:59 Intake Total 100 / 1475 125 / 125 1010 / 1135 Output Total 350 / 875 400 / 400 Balance -250 / 600 125 / 125 610 / 735 Weight last 48 hrs Weight 64.954 kg Physical Exam Const: COMMON NORMALS: no acute distress and patient oriented x3 NUTRITIONAL APPEARANCE: thin OTHER: Very [place]. HENMT: COMMON NORMALS: oropharynx normal Neck/C-Spine: COMMON NORMALS: no JVD Resp: COMMON NORMALS: normal respiratory effort and clear to auscultation bilaterally AUSCULTATION: clear to auscultation bilaterally Cardio: COMMON NORMALS: no JVD GI: COMMON NORMALS: Soft to palpation INSPECTION: Yes abdominal distension PALPATION: Yes Soft to palpation Extremity: COMMON NORMALS: no joint enlargement and no pedal edema Neuro: COMMON NORMALS: patient oriented x3 and moves all extremities Skin: COMMON NORMALS: no rashes or lesions noted GENERAL SKIN EXAM: no rashes or lesions noted Urinary Catheter Management: Mcarthur: Cath Placed During This Visit: yes Reason for Continuing Indwelling Catheter: Other Urinary Catheter Date of Insertion: 05/20/21 Urinary Catheter Time of Insertion: 01:07 Data : 05/22/21 05:38 05/22/21 05:38 A&P Assessment and plan (1) S/P small bowel resection: No bowel movement so far. Passing some flatus. NGT clamped and then removed. Clear liquid diet trial. Dose of Relistor today Ambulated a short distance with PT. Pending return of bowel function. Should hopefully not need TPN with resumption of oral intake. 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 Continue arrangements for post discharge rehabilitation. Resuming oral intake should be able to come off TPN. CM working on post discharge planning. Status: Inactive (5) NOEL (acute kidney injury): Improved. Status: Acute (6) Pneumatosis coli: Status: Acute (7) Hematochezia: Pending pathology on small bowel mass. Status: Acute (8) H/O colon cancer, stage III: Status: Acute (9) S/P colon resection: Status: Acute (10) Constipation, slow transit: Status: Chronic (11) Chronic use of steroids: Status: Acute (12) Shock: Resoved Status: Acute (13) Adrenal insufficiency: Continue hydrocortisone Status: Suspected (14) Severe protein-energy malnutrition: Status: Acute (15) Urinary retention: Mcarthur had to be reinserted due to urinary retention. Now that he is taking p.o. meds resume his home Flomax. Status: Acute Plan 75 gentleman past medical history of lung cancer on conservative treatment currently because of compression fractures on chronic steroids, with history of colon cancer post resection presented to the ER today with nausea and vomiting a possible history of hematochezia found to be hypotensive. Failure to thrive: Has required TPN. Awaiting resumptino of PO intake. Dietitian consult. Severe protein energy malnutrition: Dietitian consult. Prealbumin 8. Lost more than 30% of weight in last 3 months. History of lung cancer: Follows up with Dr. Signh. History of multiple compression fractures: Follows up with Dr. Miller. Treated conservatively. Discussed with pharmacy, hydrocodone via NG tube. Wean off IV Dilaudid. His condition discussed with his son. Attestations Medical Necessity Statement*: Continue admission pending return of bowel function, resumption of oral intake, has been requiring TPN with poor oral intake recently and weight loss, status post resection of small bowel mass, continued post discharge planning for post hospital rehabilitation. Coding Level of Care Code Acute Well Site Drilling Engineer for g Fwd Diagnoses S/P small bowel resection Z90.49 Small bowel mass K63.89 Small bowel obstruction K56.609 Adult failure to thrive syndrome R62.7 NOEL (acute kidney injury) N17.9 Pneumatosis coli K63.89 Hematochezia K92.1 H/O colon cancer, stage III Z85.038 S/P colon resection Z90.49 Constipation, slow transit K59.01 Chronic use of steroids Shock R57.9 Adrenal insufficiency E27.40 Severe protein-energy malnutrition E43 Urinary retention R33.9
[2021-05-22] MEDS: tamsulosin 0.4 mg Capsule PO (21:37)
[2021-05-23] VITALS (12 sets, daily range): BP systolic 100–128; BP diastolic 56–82; PULSE 73–106; RESP 16–18; TEMP 36.6–36.8; O2SAT 93–99
[2021-05-23] MEDS: hydrocortisone 100 mg/2 mL SDV 25 MG IVP ×3 (05:34→17:13)
[2021-05-23] MEDS: HYDROmorphone 1 mg/mL INJ 1 mL 0.5 MG IVP ×2 (06:09→12:51)
[2021-05-23 06:17] LABS: Basophils % 0.1 %; Eosinophils % 0.2 %; Hemoglobin 9.6 g/dL (11.7-16.6); Lymphocytes # 1.5 10^3/uL (0.8-4.8); Lymphocytes % 18.1 %; Mean Corpuscular HGB Conc 33.1 g/dL (30.0-36.0); Mean Corpuscular Hemoglobin 28.6 pg (28.0-34.0); Mean Corpuscular Volume 86.3 fl (80-94); Mean Platelet Volume 10.2 fL (7.4-10.4); Monocytes # 0.4 10^3/uL (0.2-0.9); Monocytes % 5.3 %; Neutrophils # 6.28 10^3/uL (1.8-7.7); Neutrophils % 75.7 %; Nucleated Red Blood Cells % 0 %; Platelet Count 220 10^3/cmm (130-400); Red Blood Count 3.36 10^6/uL (4.1-5.3); Red Cell Distribution Width 16.5 % (12.1-15.1); White Blood Count 8.3 10^3/uL (4.0-10.0)
[2021-05-23 06:32] LABS: Alanine Aminotransferase 74 U/L (0-41); Albumin Level 2.6 g/dL (3.5-5.2); Alkaline Phosphatase 110 IU/L (40-130); Anion Gap 10.3 (5-19); Aspartate Amino Transferase 40 U/L (0-40); Blood Urea Nitrogen 14 mg/dL (8-23); Calcium 8.3 mg/dL (8.5-10.5); Carbon Dioxide 26 mmol/L (22-29); Chloride 100 mmol/L (98-107); Glucose 116 mg/dL (65-115); Osmolality Calculated 277 mOsm/kg (285-295); Potassium 3.3 mmol/L (3.5-5.1); Sodium 133 mmol/L (136-145); Total Bilirubin 0.2 mg/dL (0.15-1.2); Total Protein 4.6 g/dL (6.6-8.7)
--- NOTE | 2021-05-23 07:10 | XR_ITS ---
WS: [id number] Abdomen series, Flat and upright portable, 05/23/2021 Clinical Data: s/p bowel resection Comparison: Acute abdomen series, 05/21/2021. Findings: No free air is seen beneath the diaphragms. No abnormal intra-abdominal masses or calcifica tions are seen. There is contrast material in the ascending colon which has progressed minimally in t he last 2 days. There is air in the small bowel and colon but no dilatation. Vertebroplasty contrast is noted in the T9, T10 and T12 vertebral bodies. The nasogastric tube has been removed. Monitor lead s are on the abdominal wall. XR/XR abdomen min 2V [id number] Impression: No change in generalized ileus.
[2021-05-23] MEDS: sennosides-docusate Tablet 1 TAB PO ×2 (09:02→17:12)
[2021-05-23] MEDS: Fleet Enema 133 mL Enema PR (09:02)
[2021-05-23] MEDS: pantoprazole DR 40 mg Tablet PO (09:02)
[2021-05-23] MEDS: potassium chloride oral liq 20 mEq/15 mL UDC PO (09:02)
[2021-05-23] MEDS: enoxaparin 40 mg/0.4 mL Syringe SUBCUT (09:03)
--- NOTE | 2021-05-23 10:38 | PM.PN ---
Subjective Subjective: Patient states abdominal pain is minimal, no nausea or vomiting, tolerating full liquid diet, passing flatus, no BM. He refused enemas yesterday Vitals/I&O/Wt Last Vital Signs Temp 98.3 F 05/23/21 08:00 Pulse 73 05/23/21 08:07 Resp 16 05/23/21 08:07 BP 125/64 05/23/21 08:00 Pulse Ox 93 05/23/21 08:07 05/22/21 05/23/21 05/23/21 22:59 06:59 14:59 Intake Total 1010 / 1135 800 / 800 Output Total 500 / 800 300 / 800 Balance 510 / 335 -300 / 335 800 / 800 Weight last 48 hrs Weight 142 lb 12.8 oz Physical Exam Narrative: Abdomen: Soft, nondistended, minimally tender, incision clean dry and intact Urinary Catheter Management: Mcarthur: Cath Placed During This Visit: yes Reason for Continuing Indwelling Catheter: Other Urinary Catheter Date of Insertion: 05/20/21 Urinary Catheter Time of Insertion: 01:07 Data : 05/23/21 05:29 05/23/21 05:29 A&P Assessment and plan (1) S/P small bowel resection: 75-year-old male status post small bowel resection for small bowel obstruction. Patient is hemodynamically stable, awaiting return of bowel function Mcarthur had to be replaced due to urinary retention after discontinuing it Abdominal x-ray shows contrast in the colon and generalized ileus Advance to GI soft diet Lovenox for DVT prophylaxis Continue Protonix for GI prophylaxis Daily labs Fleets enema and 1 bottle of magnesium citrate today Senna S and lactulose for bowel regimen Status: Acute (2) Severe protein-energy malnutrition: Hopefully TPN can be discontinued in the next 24 hours Status: Acute Attestations Medical Necessity Statement*: As per primary Coding Level of Care Code Acute Branch Office Administrator for [facility] 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
--- NOTE | 2021-05-23 12:53 | PC.OT ---
OT TREATMENT ATTEMPTED TWICE. PATIENT ON BED [place] BOTH ATTEMPTS.
[2021-05-23] MEDS: lactulose oral liq 20 gm/30 mL UDC 10 GM PO (17:12)
--- NOTE | 2021-05-23 19:38 | P.PN_ITS ---
Subjective Subjective: Encouraged him to make sure he is taking the stool softeners. He states he is doing okay, still no bowel movement. Tolerating some oral intake. Vitals/I&O/Wt Last Vital Signs Temp 98.0 F 05/23/21 16:00 Pulse 97 05/23/21 16:00 Resp 18 05/23/21 16:00 BP 105/60 05/23/21 16:00 Pulse Ox 95 05/23/21 16:00 05/23/21 05/23/21 05/23/21 06:59 14:59 22:59 Intake Total 925 / 925 Output Total 300 / 800 750 / 750 Balance -300 / 335 925 / 925 -750 / 175 Weight last 48 hrs Weight 64.773 kg Physical Exam Const: COMMON NORMALS: no acute distress and patient oriented x3 NUTRITIONAL APPEARANCE: thin OTHER: Very [place]. HENMT: COMMON NORMALS: oropharynx normal OTHER: NGT Neck/C-Spine: COMMON NORMALS: no JVD Resp: COMMON NORMALS: normal respiratory effort and clear to auscultation bilaterally AUSCULTATION: clear to auscultation bilaterally Cardio: COMMON NORMALS: no JVD GI: COMMON NORMALS: Soft to palpation INSPECTION: Yes abdominal distension AUSCULTATION: Yes Hypoactive bowel sounds present PALPATION: Yes Soft to palpation Extremity: COMMON NORMALS: no joint enlargement and no pedal edema Neuro: COMMON NORMALS: patient oriented x3 and moves all extremities Skin: COMMON NORMALS: no rashes or lesions noted GENERAL SKIN EXAM: no rashes or lesions noted Urinary Catheter Management: Mcarthur: Cath Placed During This Visit: yes Reason for Continuing Indwelling Catheter: Other Urinary Catheter Date of Insertion: 05/20/21 Urinary Catheter Time of Insertion: 01:07 Data : 05/23/21 05:29 05/23/21 05:29 A&P Assessment and plan (1) S/P small bowel resection: Diet advanced to trial of GI soft. Completing TPN today. Repeat Relistor. Encouraged ambulation again. Pending return of bowel function. 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 Continue arrangements for post discharge rehabilitation. Resuming oral intake should be able to come off TPN. CM working on post discharge planning. Status: Inactive (5) NOEL (acute kidney injury): Improved. Status: Acute (6) Pneumatosis coli: Status: Acute (7) Hematochezia: Pending pathology on small bowel mass. Status: Acute (8) H/O colon cancer, stage III: Status: Acute (9) S/P colon resection: Status: Acute (10) Constipation, slow transit: Status: Chronic (11) Chronic use of steroids: Status: Acute (12) Shock: Resoved Status: Acute (13) Adrenal insufficiency: Now that tolerating some oral intake switch to prednisone. Status: Suspected (14) Severe protein-energy malnutrition: Status: Acute (15) Urinary retention: Mcarthur had to be reinserted due to urinary retention. Now that he is taking p.o. meds resume his home Flomax. Status: Acute Plan 75 gentleman past medical history of lung cancer on conservative treatment currently because of compression fractures on chronic steroids, with history of colon cancer post resection presented to the ER today with nausea and vomiting a possible history of hematochezia found to be hypotensive. Failure to thrive: Trial of oral diet. Stopping PPN. Protein supplements. Severe protein energy malnutrition: Resume oral diet. Add protein supplements. Radiology Teacher reevaluation would be helpful with resumed oral intake. Prealbumin 8. Lost more than 30% of weight in last 3 months. History of lung cancer: Follows up with . History of multiple compression fractures: Follows up with Dr. Miller. Treated conservatively. Attestations Medical Necessity Statement*: Continue admission pending return of bowel function, trial of oral intake following ileus following resection of small bowel mass. Transition to oral steroid. Coding Level of Care Code Acute Communications Instructor for Chg Fwd Diagnoses S/P small bowel resection Z90.49 Small bowel mass K63.89 Small bowel obstruction K56.609 Adult failure to thrive syndrome R62.7 NOEL (acute kidney injury) N17.9 Pneumatosis coli K63.89 Hematochezia K92.1 H/O colon cancer, stage III Z85.038 S/P colon resection Z90.49 Constipation, slow transit K59.01 Chronic use of steroids Shock R57.9 Adrenal insufficiency E27.40 Severe protein-energy malnutrition E43 Urinary retention R33.9
[2021-05-23] MEDS: ipratropium-albuterol 3 mL Neb INHALATION (20:20)
[2021-05-23] MEDS: methylnaltrexone 12 /0.6 mL INJ 12 MG SUBCUT (20:40)
[2021-05-23] MEDS: tamsulosin 0.4 mg Capsule PO (20:40)
[2021-05-23] MEDS: HYDROcodone-acetaminophen 5-325 mg Tablet 1 TAB PO (21:39)
[2021-05-24] VITALS (12 sets, daily range): BP systolic 95–126; BP diastolic 62–73; PULSE 76–97; RESP 16–19; TEMP 36.4–37.1; O2SAT 91–97
[2021-05-24] MEDS: hydrocortisone 100 mg/2 mL SDV 25 MG IVP (00:11)
--- NOTE | 2021-05-24 01:27 | PC.NURSE ---
@ 2000 patient c/o severe back pain, patient requesting dilaudid, BP very low and nurse explained to patient that with low BP, dilaudid is reslly not good to take, patient agreed to take oral [place], contacted hospitalist for norco to be changed from NG tube to PO.
--- NOTE | 2021-05-24 01:32 | PC.NURSE ---
@ 2139 PO norco administered, patient has had no BM at this time but having frequent flatus
[2021-05-24] MEDS: lactulose oral liq 20 gm/30 mL UDC 10 GM PO ×2 (03:35→17:12)
[2021-05-24 05:40] LABS: Basophils % 0.1 %; Eosinophils % 0.1 %; Hematocrit 29.5 % (42.0-52.0); Hemoglobin 9.8 g/dL (11.7-16.6); Lymphocytes # 1.2 10^3/uL (0.8-4.8); Lymphocytes % 14.5 %; Mean Corpuscular HGB Conc 33.2 g/dL (30.0-36.0); Mean Corpuscular Hemoglobin 28.3 pg (28.0-34.0); Mean Corpuscular Volume 85.3 fl (80-94); Mean Platelet Volume 9.9 fL (7.4-10.4); Monocytes # 0.3 10^3/uL (0.2-0.9); Monocytes % 4.1 %; Neutrophils # 6.65 10^3/uL (1.8-7.7); Neutrophils % 80.7 %; Nucleated Red Blood Cells % 0 %; Platelet Count 257 10^3/cmm (130-400); Red Blood Count 3.46 10^6/uL (4.1-5.3); Red Cell Distribution Width 16.9 % (12.1-15.1); White Blood Count 8.3 10^3/uL (4.0-10.0)
[2021-05-24 05:58] LABS: Alanine Aminotransferase 83 U/L (0-41); Albumin Level 2.6 g/dL (3.5-5.2); Alkaline Phosphatase 120 IU/L (40-130); Anion Gap 13.4 (5-19); Aspartate Amino Transferase 37 U/L (0-40); Blood Urea Nitrogen 15 mg/dL (8-23); Calcium 8.6 mg/dL (8.5-10.5); Carbon Dioxide 26 mmol/L (22-29); Chloride 102 mmol/L (98-107); Globulin 2.4 g/dL (1.3-4.6); Glucose 127 mg/dL (65-115); Osmolality Calculated 288 mOsm/kg (285-295); Potassium 3.4 mmol/L (3.5-5.1); Sodium 138 mmol/L (136-145); Total Bilirubin 0.4 mg/dL (0.15-1.2)
[2021-05-24] MEDS: ipratropium-albuterol 3 mL Neb INHALATION (07:55)
[2021-05-24] MEDS: ondansetron 2 mg/ML SDV 2 mL 4 MG IVP (09:46)
[2021-05-24] MEDS: predniSONE 20 mg Tablet PO (09:46)
[2021-05-24] MEDS: enoxaparin 40 mg/0.4 mL Syringe SUBCUT (09:46)
[2021-05-24] MEDS: pantoprazole DR 40 mg Tablet PO (09:46)
[2021-05-24] MEDS: sennosides-docusate Tablet 1 TAB PO ×2 (09:46→17:12)
--- NOTE | 2021-05-24 11:21 | FL_ITS ---
WS: [id number] Gastrografin enema, 05/24/2021 Clinical Data: Assess for colonic obstruction, Hx colo cancer, no BM Comparison: None. Fluoroscopy time: 0.7 minutes. Findings: The pulmonary film revealed contrast material throughout the transverse colon. The Gastrografin was i ntroduced in a retrograde fashion but only the descending colon, sigmoid colon and rectum were filled . The patient evacuated the anal balloon. FL/FL enema w gastrografin [id number] Impression: 1. Incomplete Gastrografin enema and only the descending colon, sigmoid colon a nd rectum were filled. 2. No strictures or narrowing was seen from the descending colon distally.
--- NOTE | 2021-05-24 11:22 | PM.PN ---
Subjective Subjective: Worked with therapy yesterday. Denies nausea or vomiting. Denies abdominal pain. Still no bowel movement. Vitals/I&O/Wt Last Vital Signs Temp 97.5 F L 05/24/21 08:00 Pulse 82 05/24/21 08:04 Resp 16 05/24/21 08:04 BP 112/67 05/24/21 08:00 Pulse Ox 95 05/24/21 08:04 05/23/21 05/24/21 05/24/21 22:59 06:59 14:59 Intake Total 1250 / 2175 480 / 480 Output Total 750 / 750 250 / 1000 Balance 500 / 1425 -250 / 1175 480 / 480 Weight last 48 hrs Weight 64.864 kg Weight 64.773 kg Physical Exam Const: COMMON NORMALS: no acute distress and patient oriented x3 NUTRITIONAL APPEARANCE: thin OTHER: Very [place]. HENMT: COMMON NORMALS: oropharynx normal Neck/C-Spine: COMMON NORMALS: no JVD Resp: COMMON NORMALS: normal respiratory effort and clear to auscultation bilaterally AUSCULTATION: clear to auscultation bilaterally Cardio: COMMON NORMALS: no JVD GI: COMMON NORMALS: Soft to palpation INSPECTION: Yes abdominal distension AUSCULTATION: Yes Hypoactive bowel sounds present PALPATION: Yes Soft to palpation Extremity: COMMON NORMALS: no joint enlargement and no pedal edema Neuro: COMMON NORMALS: patient oriented x3 and moves all extremities Skin: COMMON NORMALS: no rashes or lesions noted GENERAL SKIN EXAM: no rashes or lesions noted Urinary Catheter Management: Mcarthur: Cath Placed During This Visit: yes Reason for Continuing Indwelling Catheter: Other Urinary Catheter Date of Insertion: 05/20/21 Urinary Catheter Time of Insertion: 01:07 Data : 05/24/21 05:03 05/24/21 05:03 A&P Assessment and plan (1) S/P small bowel resection: Still no bowel movement. Discussed with surgery - with history of colon cancer obtain Gastrografin enema. Diet advanced to trial of GI soft. Off TPN. Working w PT Pending return of bowel function. 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 Continue arrangements for post discharge rehabilitation. Resuming oral intake should be able to come off TPN. CM working on post discharge planning. Status: Inactive (5) NOEL (acute kidney injury): Improved. Status: Acute (6) Pneumatosis coli: Status: Acute (7) Hematochezia: Pending pathology on small bowel mass. Status: Acute (8) H/O colon cancer, stage III: Status: Acute (9) S/P colon resection: Status: Acute (10) Constipation, slow transit: Status: Chronic (11) Chronic use of steroids: Status: Acute (12) Shock: Resoved Status: Acute (13) Adrenal insufficiency: Now that tolerating some oral intake switch to prednisone. Status: Suspected (14) Severe protein-energy malnutrition: Status: Acute (15) Urinary retention: Mcarthur had to be reinserted due to urinary retention. Now that he is taking p.o. meds resume his home Flomax. Status: Acute Plan 75 gentleman past medical history of lung cancer on conservative treatment currently because of compression fractures on chronic steroids, with history of colon cancer post resection presented to the ER today with nausea and vomiting a possible history of hematochezia found to be hypotensive. Failure to thrive: Trial of oral diet. Stopping PPN. Protein supplements. Severe protein energy malnutrition: Resume oral diet. Add protein supplements. Radiology Receptionist reevaluation would be helpful with resumed oral intake. Prealbumin 8. Lost more than 30% of weight in last 3 months. History of lung cancer: Follows up with . History of multiple compression fractures: Follows up with Dr. Miller. Treated conservatively. Attestations Medical Necessity Statement*: Continue admission for assessment management following bowel obstruction, small bowel mass resection, delayed return of bowel function, still no bowel movement, additional assessment with Gastrografin enema. Coding Level of Care Code Acute Dermatopathologist for g Fwd Diagnoses S/P small bowel resection Z90.49 Small bowel mass K63.89 Small bowel obstruction K56.609 Adult failure to thrive syndrome R62.7 NOEL (acute kidney injury) N17.9 Pneumatosis coli K63.89 Hematochezia K92.1 H/O colon cancer, stage III Z85.038 S/P colon resection Z90.49 Constipation, slow transit K59.01 Chronic use of steroids Shock R57.9 Adrenal insufficiency E27.40 Severe protein-energy malnutrition E43 Urinary retention R33.9
--- NOTE | 2021-05-24 11:57 | PC.SOCIAL ---
IMM Update pg 2 of IMM updated and reviewed w/patient. Copy provided and copy in chart updated.
[2021-05-24] MEDS: diatrizoate meglumine 120 mL Sol PO (13:17)
[2021-05-24] MEDS: diatrizoate meglumine 120 mL Sol PR ×3 (13:33→13:34)
[2021-05-24] MEDS: HYDROcodone-acetaminophen 5-325 mg Tablet 1 TAB PO (17:13)
--- NOTE | 2021-05-24 17:15 | PM.PN ---
Subjective Subjective: Patient denies any abdominal pain, nausea, vomiting, tolerating GI soft diet, no BM Medications: Reviewed: Yes Vitals/I&O/Wt Last Vital Signs Temp 98.8 F 05/24/21 15:46 Pulse 91 05/24/21 15:46 Resp 18 05/24/21 15:46 BP 126/73 05/24/21 15:46 Pulse Ox 97 05/24/21 15:46 05/24/21 05/24/21 05/24/21 06:59 14:59 22:59 Intake Total 720 / 720 Output Total 250 / 1000 Balance -250 / 1175 720 / 720 Weight last 48 hrs Weight 143 lb Weight 142 lb 12.8 oz Physical Exam Narrative: Abdomen: Soft minimally tender, nondistended, incision clean dry and intact Urinary Catheter Management: Mcarthur: Cath Placed During This Visit: yes Reason for Continuing Indwelling Catheter: Other Urinary Catheter Date of Insertion: 05/20/21 Urinary Catheter Time of Insertion: 01:07 Data : 05/24/21 05:03 05/24/21 05:03 A&P Assessment and plan (1) S/P small bowel resection: 75-year-old male status post small bowel resection for small bowel obstruction. Patient is hemodynamically stable, awaiting return of bowel function Mcarthur had to be replaced due to urinary retention after discontinuing it Gastrografin enema shows contrast from the CT scan performed few days ago in the transverse colon and no evidence of obstruction in the descending and sigmoid colon GI soft diet Lovenox for DVT prophylaxis Continue Protonix for GI prophylaxis Daily labs Continue bowel regimen with senna S and lactulose Status: Acute (2) Severe protein-energy malnutrition: TPN has been discontinued as patient is on GI soft diet Status: Acute Attestations Medical Necessity Statement*: As per primary Coding Level of Care Code Acute Kosher Dietary Service Supervisor for Chg 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
[2021-05-24] MEDS: tamsulosin 0.4 mg Capsule PO (20:42)
[2021-05-24] MEDS: HYDROmorphone 1 mg/mL INJ 1 mL 0.5 MG IVP (20:42)
[2021-05-24 20:48] LABS: Glucose Point of Care 125 mg/dL (70-110)
[2021-05-25] VITALS (14 sets, daily range): BP systolic 110–125; BP diastolic 70–84; PULSE 52–110; RESP 15–20; TEMP 36.5–37.1; O2SAT 88–98; BMI 20.5
[2021-05-25] MEDS: lactulose oral liq 20 gm/30 mL UDC 10 GM PO (04:31)
[2021-05-25] MEDS: HYDROmorphone 1 mg/mL INJ 1 mL 0.5 MG IVP (04:35)
[2021-05-25 05:29] LABS: Basophils % 0.1 %; Eosinophils % 0.4 %; Hematocrit 30.2 % (42.0-52.0); Lymphocytes # 1.5 10^3/uL (0.8-4.8); Lymphocytes % 22.7 %; Mean Corpuscular HGB Conc 33.1 g/dL (30.0-36.0); Mean Corpuscular Hemoglobin 28.7 pg (28.0-34.0); Mean Corpuscular Volume 86.5 fl (80-94); Mean Platelet Volume 9.8 fL (7.4-10.4); Monocytes # 0.4 10^3/uL (0.2-0.9); Monocytes % 5.3 %; Neutrophils # 4.82 10^3/uL (1.8-7.7); Neutrophils % 71.1 %; Nucleated Red Blood Cells % 0 %; Platelet Count 231 10^3/cmm (130-400); Red Blood Count 3.49 10^6/uL (4.1-5.3); Red Cell Distribution Width 17.2 % (12.1-15.1); White Blood Count 6.8 10^3/uL (4.0-10.0)
[2021-05-25 06:00] LABS: Alanine Aminotransferase 82 U/L (0-41); Albumin Level 2.8 g/dL (3.5-5.2); Alkaline Phosphatase 123 IU/L (40-130); Anion Gap 12.3 (5-19); Aspartate Amino Transferase 37 U/L (0-40); Blood Urea Nitrogen 14 mg/dL (8-23); Calcium 8.6 mg/dL (8.5-10.5); Carbon Dioxide 26 mmol/L (22-29); Chloride 99 mmol/L (98-107); Globulin 2.3 g/dL (1.3-4.6); Glucose 82 mg/dL (65-115); Osmolality Calculated 278 mOsm/kg (285-295); Potassium 3.3 mmol/L (3.5-5.1); Sodium 134 mmol/L (136-145); Total Bilirubin 0.4 mg/dL (0.15-1.2); Total Protein 5.1 g/dL (6.6-8.7)
[2021-05-25 06:22] LABS: Glucose Point of Care 80 mg/dL (70-110)
[2021-05-25] MEDS: potassium chloride oral liq 20 mEq/15 mL UDC PO (09:59)
[2021-05-25] MEDS: sennosides-docusate Tablet 1 TAB PO ×2 (09:59→17:49)
[2021-05-25] MEDS: pantoprazole DR 40 mg Tablet PO (09:59)
[2021-05-25] MEDS: predniSONE 20 mg Tablet PO (09:59)
[2021-05-25] MEDS: enoxaparin 40 mg/0.4 mL Syringe SUBCUT (10:19)
[2021-05-25] MEDS: HYDROcodone-acetaminophen 5-325 mg Tablet 1 TAB PO ×2 (10:19→20:25)
[2021-05-25] MEDS: fentaNYL 12 mcg Patch 1 PATCH TRANSDERMA (13:09)
[2021-05-25] MEDS: albuterol 8 gm MDI 2 PUFF INHALATION (14:16)
--- NOTE | 2021-05-25 15:34 | P.PN_ITS ---
Subjective Subjective: Patient denies significant abdominal pain, nausea or vomiting, tolerating GI soft diet, had couple of bowel movements today Vitals/I&O/Wt Last Vital Signs Temp 98.3 F 05/25/21 12:15 Pulse 102 H 05/25/21 14:16 Resp 18 05/25/21 14:16 BP 115/77 05/25/21 12:15 Pulse Ox 97 05/25/21 14:16 05/25/21 05/25/21 05/25/21 06:59 14:59 22:59 Intake Total 600 / 1440 240 / 240 Output Total 175 / 575 Balance 425 / 865 240 / 240 Weight last 48 hrs Weight 143 lb Weight 143 lb Physical Exam Narrative: Abdomen: Soft, nontender, nondistended, incision clean dry intact Urinary Catheter Management: Mcarthur: Cath Placed During This Visit: yes Reason for Continuing Indwelling Catheter: Other Urinary Catheter Date of Insertion: 05/20/21 Urinary Catheter Time of Insertion: 01:07 Data : 05/25/21 04:54 05/25/21 04:54 A&P Assessment and plan (1) S/P small bowel resection: 75-year-old male status post small bowel resection for small bowel obstruction. Patient is hemodynamically stable, with return of bowel function today Mcarthur had to be replaced due to urinary retention after discontinuing it Gastrografin enema shows contrast from the CT scan performed few days ago in the transverse colon and no evidence of obstruction in the descending and sigmoid colon GI soft diet Lovenox for DVT prophylaxis Continue Protonix for GI prophylaxis Continue bowel regimen with senna S and lactulose Status: Acute (2) Severe protein-energy malnutrition: TPN has been discontinued as patient is on GI soft diet Status: Acute Attestations Medical Necessity Statement*: As per primary Coding Level of Care Code Acute Television Antenna Installer for Chg 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
--- NOTE | 2021-05-25 17:13 | PM.PN ---
Subjective Subjective: Reports he is doing all right. He was passing quite a bit of gas last night. Denies any irritation. No bowel movement, but had quite a bit of liquid on attempt after the Gastrografin enema. Still some abdominal pain. Vitals/I&O/Wt Last Vital Signs Temp 98.7 F 05/25/21 16:03 Pulse 52 L 05/25/21 16:03 Resp 15 05/25/21 16:03 BP 125/84 05/25/21 16:03 Pulse Ox 95 05/25/21 16:03 05/25/21 05/25/21 05/25/21 06:59 14:59 22:59 Intake Total 600 / 1440 240 / 240 Output Total 175 / 575 Balance 425 / 865 240 / 240 Weight last 48 hrs Weight 64.864 kg Weight 64.864 kg Physical Exam Const: COMMON NORMALS: no acute distress and patient oriented x3 GENERAL APPEARANCE: cooperative NUTRITIONAL APPEARANCE: thin OTHER: Very [place]. HENMT: COMMON NORMALS: oropharynx normal Neck/C-Spine: COMMON NORMALS: no JVD Resp: COMMON NORMALS: normal respiratory effort and clear to auscultation bilaterally AUSCULTATION: clear to auscultation bilaterally Cardio: COMMON NORMALS: no JVD GI: COMMON NORMALS: Soft to palpation INSPECTION: Yes abdominal distension AUSCULTATION: Yes normoactive bowel sounds PALPATION: Yes Soft to palpation Extremity: COMMON NORMALS: no joint enlargement and no pedal edema Neuro: COMMON NORMALS: patient oriented x3 and moves all extremities Skin: COMMON NORMALS: no rashes or lesions noted GENERAL SKIN EXAM: no rashes or lesions noted Urinary Catheter Management: Mcarthur: Cath Placed During This Visit: yes Reason for Continuing Indwelling Catheter: Other Urinary Catheter Date of Insertion: 05/20/21 Urinary Catheter Time of Insertion: 01:07 Data : 05/25/21 04:54 05/25/21 04:54 A&P Assessment and plan (1) S/P small bowel resection: Passing flatus. Had liquid coming on attempted bowel movement after Gastrografin enema. Not yet having bowel movement. Some abdominal pain. But has been tolerating oral intake so far. Denies eructation, no nausea or vomiting. Gastrografin enema without stricture or narrowing in the descending colon. Contrast material throughout transverse colon from prior contrast administration. Continue bowel regimen. Stopped IV Dilaudid. Diet advanced to trial of GI soft. Off TPN. Working w PT Continue arrangements for rehabilitation. 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 Continue arrangements for post discharge rehabilitation. Resuming oral intake should be able to come off TPN. CM working on post discharge planning. Status: Inactive (5) NOEL (acute kidney injury): Improved. Status: Acute (6) Pneumatosis coli: Status: Acute (7) Hematochezia: Pending pathology on small bowel mass. Status: Acute (8) H/O colon cancer, stage III: Status: Acute (9) S/P colon resection: Status: Acute (10) Constipation, slow transit: Status: Chronic (11) Chronic use of steroids: Status: Acute (12) Shock: Resoved Status: Acute (13) Adrenal insufficiency: Now that tolerating some oral intake switched to prednisone. Status: Suspected (14) Severe protein-energy malnutrition: Status: Acute (15) Urinary retention: Mcarthur had to be reinserted due to urinary retention. Resumed on home Flomax. Status: Acute Plan 75 gentleman past medical history of lung cancer on conservative treatment currently because of compression fractures on chronic steroids, with history of colon cancer post resection presented to the ER today with nausea and vomiting a possible history of hematochezia found to be hypotensive. History of multiple compression fractures. Chronic pain Follows up with Dr. Miller. Treated conservatively. Resumed on hydrocodone by mouth. Stop IV Dilaudid. Started low-dose fentanyl patch Failure to thrive: Trial of oral diet. Stopping PPN. Protein supplements. Severe protein energy malnutrition: Resume oral diet. Add protein supplements. Solution Consultant reevaluation would be helpful with resumed oral intake. Prealbumin 8. Lost more than 30% of weight in last 3 months. History of lung cancer: Follows up with . Attestations Medical Necessity Statement*: Continue admission for resumption of oral intake with ileus following bowel resection with small bowel adenocarcinoma, in the setting of malnutrition, optimization of pain control in the setting of recent ileus, with multiple vertebral fractures to allow mobilization with deconditioning. Post discharge planning and arrangements. Coding Level of Care Code Acute Net Developer Programmer for Chg Fwd Diagnoses S/P small bowel resection Z90.49 Small bowel mass K63.89 Small bowel obstruction K56.609 Adult failure to thrive syndrome R62.7 NOEL (acute kidney injury) N17.9 Pneumatosis coli K63.89 Hematochezia K92.1 H/O colon cancer, stage III Z85.038 S/P colon resection Z90.49 Constipation, slow transit K59.01 Chronic use of steroids Shock R57.9 Adrenal insufficiency E27.40 Severe protein-energy malnutrition E43 Urinary retention R33.9
[2021-05-25] MEDS: ipratropium-albuterol 3 mL Neb INHALATION (19:28)
[2021-05-25] MEDS: tamsulosin 0.4 mg Capsule PO (20:25)
[2021-05-26] VITALS (8 sets, daily range): BP systolic 103–118; BP diastolic 63–77; PULSE 72–102; RESP 16–28; TEMP 36.7–37.1; O2SAT 91–96
[2021-05-26 05:07] LABS: Basophils % 0.1 %; Eosinophils # 0.1 10^3/uL (0.0-0.8); Eosinophils % 0.6 %; Hematocrit 28.4 % (42.0-52.0); Hemoglobin 9.2 g/dL (11.7-16.6); Lymphocytes # 1.5 10^3/uL (0.8-4.8); Lymphocytes % 18.1 %; Mean Corpuscular HGB Conc 32.4 g/dL (30.0-36.0); Mean Corpuscular Hemoglobin 27.7 pg (28.0-34.0); Mean Corpuscular Volume 85.5 fl (80-94); Mean Platelet Volume 9.6 fL (7.4-10.4); Monocytes # 0.4 10^3/uL (0.2-0.9); Monocytes % 5.3 %; Neutrophils # 6.09 10^3/uL (1.8-7.7); Neutrophils % 75.5 %; Nucleated Red Blood Cells % 0 %; Platelet Count 232 10^3/cmm (130-400); Red Blood Count 3.32 10^6/uL (4.1-5.3); Red Cell Distribution Width 17.1 % (12.1-15.1); White Blood Count 8.1 10^3/uL (4.0-10.0)
[2021-05-26 05:29] LABS: Alanine Aminotransferase 76 U/L (0-41); Albumin Level 2.6 g/dL (3.5-5.2); Alkaline Phosphatase 116 IU/L (40-130); Anion Gap 11.4 (5-19); Aspartate Amino Transferase 32 U/L (0-40); Blood Urea Nitrogen 14 mg/dL (8-23); Calcium 8.5 mg/dL (8.5-10.5); Carbon Dioxide 25 mmol/L (22-29); Chloride 103 mmol/L (98-107); Globulin 1.9 g/dL (1.3-4.6); Glucose 118 mg/dL (65-115); Osmolality Calculated 284 mOsm/kg (285-295); Potassium 3.4 mmol/L (3.5-5.1); Sodium 136 mmol/L (136-145); Total Bilirubin 0.3 mg/dL (0.15-1.2); Total Protein 4.5 g/dL (6.6-8.7)
[2021-05-26] MEDS: HYDROcodone-acetaminophen 5-325 mg Tablet 1 TAB PO ×3 (07:27→20:29)
[2021-05-26] MEDS: sennosides-docusate Tablet 1 TAB PO ×2 (08:25→17:12)
[2021-05-26] MEDS: predniSONE 20 mg Tablet PO (08:25)
[2021-05-26] MEDS: pantoprazole DR 40 mg Tablet PO (08:25)
[2021-05-26] MEDS: ipratropium-albuterol 3 mL Neb INHALATION ×2 (08:29→19:56)
--- NOTE | 2021-05-26 08:46 | XRR_ITS ---
PROCEDURE INFORMATION: Exam: XR Chest Exam date and time: 05/26/2021 8:46 AM Age: 75 years old Clinical indication: Hyperventilation; Additional info: Hypoxia TECHNIQUE: Imaging protocol: XR of the chest. Views: 1 view. COMPARISON: CR (CHEST, ) 05/21/2021 1:11 AM FINDINGS: Tubes, catheters and devices: The left costophrenic angle is obscured due to monitoring device. Stable K[place]pwn-K-Gihl type central venous catheter. Lungs: Slight improvement in the left base consolidation/infiltrate. The right lung is clear. Pleural spaces: Unremarkable. No pleural effusion. No pneumothorax. Heart/Mediastinum: Unremarkable. No cardiomegaly. Bones/joints: Unremarkable. XR/XR chest 1V portable [id number] IMPRESSION: Decrease left base consolidation/infiltrate with nonvisualization of the left costophrenic angle.
[2021-05-26] MEDS: guaiFENesin 600 mg Tablet PO ×2 (09:29→17:12)
[2021-05-26] MEDS: enoxaparin 40 mg/0.4 mL Syringe SUBCUT (09:29)
[2021-05-26] MEDS: ondansetron 2 mg/ML SDV 2 mL 4 MG IVP (09:37)
[2021-05-26 10:59] LABS: NT Pro B Type Natriuretic Pept 1394 pg/mL (0-125)
--- NOTE | 2021-05-26 12:41 | PM.PN ---
Subjective Subjective: States she is doing about the same. This morning he was having some rhonchi, cough, which he says cleared up with breathing treatment, Mucinex. Vitals/I&O/Wt Last Vital Signs Temp 98.0 F 05/26/21 11:26 Pulse 91 05/26/21 11:26 Resp 16 05/26/21 11:26 BP 103/63 05/26/21 11:26 Pulse Ox 95 05/26/21 11:26 05/25/21 05/26/21 05/26/21 22:59 06:59 14:59 Intake Total 50 / 290 240 / 530 240 / 240 Output Total 450 / 450 350 / 800 250 / 250 Balance -400 / -160 -110 / -270 -10 / -10 Weight last 48 hrs Weight 65 kg Weight 64.864 kg Physical Exam Const: COMMON NORMALS: no acute distress and patient oriented x3 GENERAL APPEARANCE: cooperative NUTRITIONAL APPEARANCE: thin OTHER: Very B[place]. HENMT: COMMON NORMALS: oropharynx normal Neck/C-Spine: COMMON NORMALS: no JVD Resp: COMMON NORMALS: normal respiratory effort and clear to auscultation bilaterally AUSCULTATION: clear to auscultation bilaterally Cardio: COMMON NORMALS: no JVD GI: COMMON NORMALS: Soft to palpation INSPECTION: Yes abdominal distension AUSCULTATION: Yes normoactive bowel sounds PALPATION: Yes Soft to palpation Extremity: COMMON NORMALS: no joint enlargement and no pedal edema Neuro: COMMON NORMALS: patient oriented x3 and moves all extremities Skin: COMMON NORMALS: no rashes or lesions noted GENERAL SKIN EXAM: no rashes or lesions noted Urinary Catheter Management: Mcarthur: Cath Placed During This Visit: yes Reason for Continuing Indwelling Catheter: Other Urinary Catheter Date of Insertion: 05/20/21 Urinary Catheter Time of Insertion: 01:07 Data : 05/26/21 04:35 05/26/21 04:35 A&P Assessment and plan (1) S/P small bowel resection: Some abdominal pain persists. But has been tolerating oral intake so far. Denies eructation, no nausea or vomiting. BM recorded last night, but not sure how big. Gastrografin enema without stricture or narrowing in the descending colon. Contrast material throughout transverse colon from prior contrast administration. Continue bowel regimen. Stopped IV Dilaudid. Diet advanced to trial of GI soft. Off TPN. Working w PT Continue arrangements for rehabilitation. Status: Acute (2) Hypoxia: Today having significantly more rhonchi this morning, some cough, having difficult time coughing up. Given additional breathing treatment. Started on Mucinex. Tells me resolved with these interventions. Does sound clear on auscultation during my visit. We repeated chest x-ray today as well, has some persistent left lower lobe atelectasis versus infiltrate, discussed with him, has not had any leukocytosis, fever, at this point doubt pneumonia, although may be at risk as discussed with him due to persistent Kathrin. He states he has not been using incentive spirometer, stating that he hates them , pointing to incise pulmonary and flutter valve. Asked him to show me how to do it, he did quite well with incentive spirometer getting up to about 2000 doing so multiple times encouraged him to continue using it, he states he will. Monitor for signs of development of pneumonia. Doing well on 2 L nasal cannula oxygen. 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 Continue mobilization with therapy. Continue arrangements for post discharge rehabilitation. Resuming oral intake should be able to come off TPN. CM working on post discharge planning for rehabilitation Status: Inactive (6) NOEL (acute kidney injury): Improved. Status: Acute (7) Pneumatosis coli: Status: Acute (8) Hematochezia: Pending pathology on small bowel mass. Status: Acute (9) H/O colon cancer, stage III: Status: Acute (10) S/P colon resection: Status: Acute (11) Constipation, slow transit: Status: Chronic (12) Chronic use of steroids: Status: Acute (13) Shock: Resoved Status: Acute (14) Adrenal insufficiency: Now that tolerating some oral intake switched to prednisone. Status: Suspected (15) Severe protein-energy malnutrition: Status: Acute (16) Urinary retention: Mcarthur had to be reinserted due to urinary retention. Resumed on home Flomax. Status: Acute Plan 75 gentleman past medical history of lung cancer on conservative treatment currently because of compression fractures on chronic steroids, with history of colon cancer post resection presented to the ER today with nausea and vomiting a possible history of hematochezia found to be hypotensive. History of multiple compression fractures. Chronic pain Follows up with Dr. Miller. Treated conservatively. Resumed on hydrocodone by mouth. Stop IV Dilaudid. Started low-dose fentanyl patch Failure to thrive: Trial of oral diet. Stopping PPN. Protein supplements. Severe protein energy malnutrition: Resume oral diet. Add protein supplements. Applied Statistician reevaluation would be helpful with resumed oral intake. Prealbumin 8. Lost more than 30% of weight in last 3 months. History of lung cancer: Follows up with . Attestations Medical Necessity Statement*: Continue admission for advancement of diet following ileus following resection of small bowel mass, additional assessment of hypoxia, persistent atelectasis, significant deconditioning, continue mobilization, arrangements for rehabilitation. Coding Level of Care Code Acute Weights And Measures Sealer for Chg Fwd Diagnoses S/P small bowel resection Z90.49 Small bowel mass K63.89 Small bowel obstruction K56.609 Adult failure to thrive syndrome R62.7 NOEL (acute kidney injury) N17.9 Pneumatosis coli K63.89 Hematochezia K92.1 H/O colon cancer, stage III Z85.038 S/P colon resection Z90.49 Constipation, slow transit K59.01 Chronic use of steroids Shock R57.9 Adrenal insufficiency E27.40 Severe protein-energy malnutrition E43 Urinary retention R33.9 Hypoxia R09.02
--- NOTE | 2021-05-26 13:24 | P.PN_ITS ---
Subjective Subjective: Patient denies significant abdominal pain, nausea, vomiting, tolerating GI soft diet. He is passing flatus, had bowel movement yesterday but not today Medications: Reviewed: Yes Vitals/I&O/Wt Last Vital Signs Temp 98.0 F 05/26/21 11:26 Pulse 91 05/26/21 11:26 Resp 16 05/26/21 11:26 BP 103/63 05/26/21 11:26 Pulse Ox 95 05/26/21 11:26 05/25/21 05/26/21 05/26/21 22:59 06:59 14:59 Intake Total 50 / 530 240 / 530 240 / 240 Output Total 450 / 800 350 / 800 250 / 250 Balance -400 / -270 -110 / -270 -10 / -10 Weight last 48 hrs Weight 143 lb 4.8 oz Weight 143 lb Physical Exam 2 Narrative: Abdomen: Soft, nondistended, minimally tender, incision clean dry and intact Urinary Catheter Management: Mcarthur: Cath Placed During This Visit: yes Reason for Continuing Indwelling Catheter: Other Urinary Catheter Date of Insertion: 05/20/21 Urinary Catheter Time of Insertion: 01:07 Data : 05/26/21 04:35 05/26/21 04:35 A&P Assessment and plan (1) S/P small bowel resection: 75-year-old male status post small bowel resection for small bowel obstruction. Patient is hemodynamically stable, with return of bowel function today Mcarthur had to be replaced due to urinary retention after discontinuing it Gastrografin enema shows contrast from the CT scan performed few days ago in the transverse colon and no evidence of obstruction in the descending and sigmoid colon GI soft diet Lovenox for DVT prophylaxis Continue Protonix for GI prophylaxis Continue bowel regimen with senna S and lactulose, awaiting rehab placement. Patient mention today that his girlfriend had rehab experience and he was wondering whether he could go home instead. Information passed to the outpatient case manager. Okay to go home from a surgical standpoint. Status: Acute (2) Severe protein-energy malnutrition: TPN has been discontinued as patient is on GI soft diet Status: Acute Attestations Medical Necessity Statement*: As per primary Coding Level of Care Code Acute Sewer Bricklayer for Chg 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
--- NOTE | 2021-05-26 14:39 | PC.SOCIAL ---
IMM UPDATED IMM dated and initialed and copy given to patient
[2021-05-26] MEDS: lactulose oral liq 20 gm/30 mL UDC 10 GM PO (15:55)
[2021-05-26] MEDS: tamsulosin 0.4 mg Capsule PO (20:29)
[2021-05-27] VITALS (11 sets, daily range): BP systolic 97–119; BP diastolic 62–77; PULSE 58–127; RESP 15–20; TEMP 36.4–36.9; O2SAT 92–97
[2021-05-27] MEDS: HYDROcodone-acetaminophen 5-325 mg Tablet 1 TAB PO ×4 (02:03→20:47)
[2021-05-27] MEDS: lactulose oral liq 20 gm/30 mL UDC 10 GM PO (04:07)
[2021-05-27 04:34] LABS: Basophils % 0.1 %; Eosinophils % 0.5 %; Hematocrit 28.7 % (42.0-52.0); Hemoglobin 9.5 g/dL (11.7-16.6); Lymphocytes # 1.3 10^3/uL (0.8-4.8); Lymphocytes % 15.9 %; Mean Corpuscular HGB Conc 33.1 g/dL (30.0-36.0); Mean Corpuscular Hemoglobin 28.3 pg (28.0-34.0); Mean Corpuscular Volume 85.4 fl (80-94); Mean Platelet Volume 9.3 fL (7.4-10.4); Monocytes # 0.4 10^3/uL (0.2-0.9); Monocytes % 5.5 %; Neutrophils # 6.14 10^3/uL (1.8-7.7); Neutrophils % 77.5 %; Nucleated Red Blood Cells % 0 %; Platelet Count 217 10^3/cmm (130-400); Red Blood Count 3.36 10^6/uL (4.1-5.3); Red Cell Distribution Width 17.3 % (12.1-15.1); White Blood Count 7.9 10^3/uL (4.0-10.0)
[2021-05-27 04:56] LABS: Alanine Aminotransferase 61 U/L (0-41); Albumin Level 2.6 g/dL (3.5-5.2); Alkaline Phosphatase 113 IU/L (40-130); Anion Gap 11.6 (5-19); Aspartate Amino Transferase 19 U/L (0-40); Blood Urea Nitrogen 10 mg/dL (8-23); Calcium 8.5 mg/dL (8.5-10.5); Carbon Dioxide 26 mmol/L (22-29); Chloride 101 mmol/L (98-107); Glucose 80 mg/dL (65-115); Osmolality Calculated 278 mOsm/kg (285-295); Potassium 3.6 mmol/L (3.5-5.1); Sodium 135 mmol/L (136-145); Total Bilirubin 0.5 mg/dL (0.15-1.2); Total Protein 4.6 g/dL (6.6-8.7)
[2021-05-27] MEDS: ipratropium-albuterol 3 mL Neb INHALATION (07:47)
[2021-05-27] MEDS: predniSONE 20 mg Tablet PO (08:02)
[2021-05-27] MEDS: guaiFENesin 600 mg Tablet PO ×2 (08:02→17:31)
[2021-05-27] MEDS: sennosides-docusate Tablet 1 TAB PO (08:03)
[2021-05-27] MEDS: ondansetron 2 mg/ML SDV 2 mL 4 MG IVP (08:03)
[2021-05-27] MEDS: pantoprazole DR 40 mg Tablet PO (08:03)
--- NOTE | 2021-05-27 09:33 | P.PN_ITS ---
Subjective Subjective: Patient is stating that he has been passing gas, 1Large bowel movement, he was very upset with the quality of breakfast this morning, Nurse at the bedside We did communicate via writing No overnight events other than abdominal pain This morning abdominal pain is soft nontender Vitals/I&O/Wt Last Vital Signs Temp 97.6 F 05/27/21 07:38 Pulse 90 05/27/21 07:53 Resp 18 05/27/21 07:53 BP 111/75 05/27/21 07:38 Pulse Ox 94 05/27/21 07:53 05/26/21 05/27/21 05/27/21 22:59 06:59 14:59 Intake Total 170 / 530 360 / 890 240 / 240 Output Total 400 / 650 700 / 1350 Balance -230 / -120 -340 / -460 240 / 240 Weight last 48 hrs Weight 64.92 kg Weight 65 kg Physical Exam Narrative: Nasal cannula Abdomen soft Also lymphadenopathy Scar perkins noted off abdomen not distended as peritonitis Awake and alert Nonfocal neuro exam S1, S2 No audible stridor or wheezing No conversational dyspnea Patient is upset because of breakfast options Urinary Catheter Management: Mcarthur: Cath Placed During This Visit: yes Reason for Continuing Indwelling Catheter: Other Urinary Catheter Date of Insertion: 05/20/21 Urinary Catheter Time of Insertion: 01:07 Data : 05/27/21 04:05 05/27/21 04:05 A&P Assessment and plan (1) Hypoxia: Status: Acute (2) Urinary retention: Status: Acute (3) Small bowel mass: Status: Acute (4) S/P small bowel resection: Status: Acute (5) Pneumatosis coli: Status: Acute (6) Severe protein-energy malnutrition: Status: Acute (7) Rectal cancer: Status: Acute (8) NOEL (acute kidney injury): Status: Acute (9) Adrenal insufficiency: Status: Suspected (10) Chronic use of steroids: Status: Acute (11) Shock: Status: Acute (12) S/P colon resection: Status: Acute (13) Lung cancer: Status: Chronic (14) Constipation, slow transit: Status: Chronic Plan Patient had one bowel movement today, large BM Abdomen is soft Patient is cleared to be discharged from the hospital now it is a matter of home versus SNF, patient is weak Would definitely benefit from SNF, I asked director of casework services to help him get a final decision from the patient however at the time of evaluation he did not refuse senior care placement Hypoventilation related hypoxia Wean off oxygen to room air Has not been using his incentive spirometer No active signs of pneumonia or CHF Opiate abuse constipation with underlying cancer Resolved Adrenal insufficiency No acute decompensation Continue prednisone Full code Patient has a Mcarthur catheter because of urine retention, will keep the Mcarthur in and have him follow-up with Dr. Martinez Awaiting response from nursing homes locally Attestations Medical Necessity Statement*: Awaiting placement Time Spent in Patient Care: 15min Coding Level of Care Code Acute Vector Control Assistant for Chg Fwd Diagnoses Hypoxia R09.02 Urinary retention R33.9 Small bowel mass K63.89 S/P small bowel resection Z90.49 Pneumatosis coli K63.89 Severe protein-energy malnutrition E43 Rectal cancer C20 NOEL (acute kidney injury) N17.9 Adrenal insufficiency E27.40 Chronic use of steroids Shock R57.9 S/P colon resection Z90.49 Lung cancer C34.90 Constipation, slow transit K59.01
[2021-05-27] MEDS: enoxaparin 40 mg/0.4 mL Syringe SUBCUT (10:05)
--- NOTE | 2021-05-27 12:41 | P.PN_ITS ---
Subjective Subjective: Patient denies any nausea vomiting, tolerating GI soft diet, had a bowel movement today Vitals/I&O/Wt Last Vital Signs Temp 98.2 F 05/27/21 11:24 Pulse 116 H 05/27/21 11:24 Resp 18 05/27/21 11:24 BP 108/70 05/27/21 11:24 Pulse Ox 92 05/27/21 11:24 05/26/21 05/27/21 05/27/21 22:59 06:59 14:59 Intake Total 170 / 890 360 / 890 240 / 240 Output Total 400 / 1350 700 / 1350 Balance -230 / -460 -340 / -460 240 / 240 Weight last 48 hrs Weight 143 lb 2 oz Weight 143 lb 4.8 oz Physical Exam Narrative: Abdomen: Soft, nontender, not distended, incisions healing well Urinary Catheter Management: Mcarthur: Cath Placed During This Visit: yes Reason for Continuing Indwelling Catheter: Other Urinary Catheter Date of Insertion: 05/20/21 Urinary Catheter Time of Insertion: 01:07 Data : 05/27/21 04:05 05/27/21 04:05 A&P Assessment and plan (1) S/P small bowel resection: 75-year-old male status post small bowel resection for small bowel obstruction. Patient is hemodynamically stable, with return of bowel function Mcarthur had to be replaced due to urinary retention after discontinuing it Gastrografin enema shows contrast from the CT scan performed few days ago in the transverse colon and no evidence of obstruction in the descending and sigmoid colon GI soft diet Lovenox for DVT prophylaxis Continue Protonix for GI prophylaxis Continue bowel regimen with senna S and lactulose, awaiting rehab placement. Status: Acute (2) Severe protein-energy malnutrition: TPN has been discontinued as patient is on GI soft diet Status: Acute Attestations Medical Necessity Statement*: As per primary Coding Level of Care Code Acute Mental Health Practitioner for Chg 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
[2021-05-27] MEDS: tamsulosin 0.4 mg Capsule PO (20:47)
[2021-05-28] VITALS (9 sets, daily range): BP systolic 99–120; BP diastolic 65–85; PULSE 71–104; RESP 17–24; TEMP 36.3–36.9; O2SAT 92–96
[2021-05-28] MEDS: HYDROcodone-acetaminophen 5-325 mg Tablet 1 TAB PO ×3 (03:31→17:02)
[2021-05-28 04:54] LABS: Basophils % 0.3 %; Eosinophils # 0.1 10^3/uL (0.0-0.8); Eosinophils % 1.2 %; Hematocrit 28.7 % (42.0-52.0); Hemoglobin 9.6 g/dL (11.7-16.6); Lymphocytes # 1.5 10^3/uL (0.8-4.8); Lymphocytes % 25.2 %; Mean Corpuscular HGB Conc 33.4 g/dL (30.0-36.0); Mean Corpuscular Hemoglobin 28.5 pg (28.0-34.0); Mean Corpuscular Volume 85.2 fl (80-94); Mean Platelet Volume 9.1 fL (7.4-10.4); Monocytes # 0.3 10^3/uL (0.2-0.9); Monocytes % 4.9 %; Neutrophils # 4.05 10^3/uL (1.8-7.7); Neutrophils % 68.1 %; Nucleated Red Blood Cells % 0 %; Platelet Count 209 10^3/cmm (130-400); Red Blood Count 3.37 10^6/uL (4.1-5.3); Red Cell Distribution Width 17.4 % (12.1-15.1)
[2021-05-28 05:08] LABS: Alanine Aminotransferase 48 U/L (0-41); Albumin Level 2.6 g/dL (3.5-5.2); Alkaline Phosphatase 120 IU/L (40-130); Anion Gap 11.5 (5-19); Aspartate Amino Transferase 16 U/L (0-40); Blood Urea Nitrogen 13 mg/dL (8-23); Calcium 8.3 mg/dL (8.5-10.5); Carbon Dioxide 26 mmol/L (22-29); Chloride 101 mmol/L (98-107); Creatinine Clr Calc Pharmacy 80.8741; Glucose 108 mg/dL (65-115); Osmolality Calculated 281 mOsm/kg (285-295); Potassium 3.5 mmol/L (3.5-5.1); Sodium 135 mmol/L (136-145); Total Bilirubin 0.4 mg/dL (0.15-1.2); Total Protein 4.6 g/dL (6.6-8.7)
[2021-05-28] MEDS: ipratropium-albuterol 3 mL Neb INHALATION (08:34)
[2021-05-28] MEDS: guaiFENesin 600 mg Tablet PO ×2 (08:59→17:02)
[2021-05-28] MEDS: sennosides-docusate Tablet 1 TAB PO ×2 (08:59→17:02)
[2021-05-28] MEDS: pantoprazole DR 40 mg Tablet PO (09:00)
[2021-05-28] MEDS: enoxaparin 40 mg/0.4 mL Syringe SUBCUT (09:00)
[2021-05-28] MEDS: predniSONE 20 mg Tablet PO (09:00)
--- NOTE | 2021-05-28 09:11 | PM.PN ---
Subjective Subjective: We will give him a bag of albumin Has congestion, will give Lasix Repeat x-ray today Wean off oxygen to room air Patient is stating he had 2 bowel movement yesterday No active abdominal pain He is okay to go to rehab but would like to discuss with his brother Check mag Replenish potassium Vitals/I&O/Wt Last Vital Signs Temp 97.6 F 05/28/21 04:00 Pulse 78 05/28/21 08:44 Resp 18 05/28/21 08:36 BP 107/74 05/28/21 04:00 Pulse Ox 96 05/28/21 08:36 05/27/21 05/28/21 05/28/21 22:59 06:59 14:59 Intake Total 290 / 770 500 / 1270 Output Total 450 / 450 300 / 750 Balance -160 / 320 200 / 520 Weight last 48 hrs Weight 64.319 kg Weight 64.92 kg Physical Exam Narrative: Patient was eating breakfast this morning Saturating well on 2 L nasal cannula Audible rhonchi Chest congestion No abdominal pain Abdomen soft Nonbloated No signs of edema Appropriate mood and affect Urinary Catheter Management: Mcarthur: Cath Placed During This Visit: yes Reason for Continuing Indwelling Catheter: Other Urinary Catheter Date of Insertion: 05/20/21 Urinary Catheter Time of Insertion: 01:07 Data : 05/28/21 04:40 05/28/21 04:40 A&P Assessment and plan (1) Hypoxia: Status: Acute (2) Urinary retention: Status: Acute (3) Small bowel mass: Status: Acute (4) S/P small bowel resection: Status: Acute (5) Pneumatosis coli: Status: Acute (6) Severe protein-energy malnutrition: Status: Acute (7) Rectal cancer: Status: Acute (8) NOEL (acute kidney injury): Status: Acute (9) Adrenal insufficiency: Status: Suspected (10) Chronic use of steroids: Status: Acute (11) H/O colon cancer, stage III: Status: Acute (12) Lung cancer: Status: Chronic (13) Nocturia: Status: Acute (14) BPH loc w urin obs/LUTS: Status: Acute Plan 2 bowel movements yesterday Abdomen soft Constipation has resolved Patient wants to discuss with his brother however he is leaning towards going to rehab for a week and then go home Hypoxia related to hypoventilation, chest congestion noted today, will give him Lasix, repeat x-ray today Wean oxygen to room air Adrenal insufficiency no acute exacerbation Continue prednisone 20 mg Now management For appropriate wound healing we will give him a bag of albumin Urinary retention, Mcarthur catheter in place Full code GI soft diet Diet can be advanced after general surgery evaluation today History of lung cancer, rectal cancer, outpatient follow-up: History of compression fracture due to steroids, colon cancer status post resection, SBO resolved TPN discontinued Attestations Medical Necessity Statement*: Awaiting rehab placement Time Spent in Patient Care: 15min Coding Level of Care Code Acute Circulation Assistant for Chg Fwd Diagnoses Hypoxia R09.02 Urinary retention R33.9 Small bowel mass K63.89 S/P small bowel resection Z90.49 Pneumatosis coli K63.89 Severe protein-energy malnutrition E43 Rectal cancer C20 NOEL (acute kidney injury) N17.9 Adrenal insufficiency E27.40 Chronic use of steroids H/O colon cancer, stage III Z85.038 Lung cancer C34.90 Nocturia R35.1 BPH loc w urin obs/LUTS N40.1
--- NOTE | 2021-05-28 09:13 | XR_ITS ---
WS: [id number] Exam: XR chest 1V portable [id number] Date/Time of Exam: 05/28/2021 9:14 AM Reason For Exam: hypoxia Comparison 05/26/2021. Improving infiltrate in the left base since prior study. Trace left basal pleural effusion. Remaining lung sylvester are clear. No pneumothorax. Unremarkable cardiomediastinal silhouette. A left subclavian central line is noted probably ending in the medial aspect of the left subclavian vein unchanged in position. Signs of the kyphoplasty involving several thoracic vertebra. XR/XR chest 1V portable [id number] IMPRESSION: 1. Improving infiltrate and pleural effusion in the left base since prior study . 2. Left subclavian central line unchanged in position probably ending in the me dial aspect of the left subclavian vein.
--- NOTE | 2021-05-28 09:17 | PC.SOCIAL ---
IMM Update pg 2 of IMM updated w/ patient via writing and white board. Patient is very hard of hearing. Copy provided and copy in chart updated.
[2021-05-28] MEDS: potassium chloride oral liq 20 mEq/15 mL UDC 40 MEQ PO (09:33)
[2021-05-28] MEDS: albumin 12.5 GM/250 ML VIAL IV (09:34)
[2021-05-28] MEDS: FUROsemide 10 mg/mL SDV 2mL 20 MG IVP (09:34)
--- NOTE | 2021-05-28 09:47 | PC.CHAP ---
Pastoral Care Encounter/Spiritual Assessment Type of Contact [] Declined kiln remover visit [] Patient/Family/Request visit [] Outpatient visit [] Follow-up visit [] Physician referral [] Code/Alert [x] Routine visit [] Staff referral [] Actively dying [] Patient sleeping [] Family support [] [] Out of room [] Palliative care [] [] Receiving care in room [] Pre-surgical visit [] Trauma [] Long length of stay [] ICU visit [] Other: Relational/Emotional Strength [x] Patient feels connected with others/family/visitors/staff [] Distress [] Loneliness/isolation [] Abandonment Spirituality of Patient [x] Person of [place] [x] Attends Scientology of their [place] [x] Believes in Prayer [] Reads Bible or Anabaptism materials [] There are Spiritual issues to be addressed Haulage Engine Operator Interventions [x] Prayer [x] Active listening [x] Non-anxious presence [x] Spiritual/emotional support [] Crisis/trauma care [] Spiritual counseling [] Bereavement support [] Provided bereavement packet [] Provided Bible/devotional materials [] Provided toy/stuffed animal, coloring book to patient or family member [] Provided Communion [] Anointing/[place] [] Salvation [x] Completed spiritual assessment [] Other: Impact on Illness or Injury [] Angry [] Fearful [] Anxious [] Often cries [] Exhaustion [] Unable to work [] Unable to attend restorationist [] Unable to walk/stand [] Unable to read [] Unable to drive [] Unable to eat/drink [] Unable to sleep [] Unable to be with family [] Patient intubated [] Other: Summary Pt extremely hard of hearing. Haulage Engine Operator used white board to communicate with him. Pt said he is a person of [place] and believes in prayer. He is a strong believer. Due to his hearing issue he is unable to attend anglican services. He hopes he can obtain hearing aids so he can hear and know what is going on in the service. He did accept prayer. Time spent with patient 15m
[2021-05-28] MEDS: fentaNYL 12 mcg Patch 1 PATCH TRANSDERMA (12:05)
--- NOTE | 2021-05-28 15:24 | PC.NURSE ---
Patient had uneventful shift. New IV placed. Mcarthur still in place, intact and has adequate output. Pain has been under control most of the shift. Patient worked with PT, got to the chair for a little bit. Will continue to monitor and give report to night nurse.
--- NOTE | 2021-05-28 16:53 | PC.OT ---
OT TREATMENT ATTEMPTED. PATIENT WAS SLEEPING SOUNDLY. WILL ATTEMPT AGAIN TOMORROW.
[2021-05-28] MEDS: tamsulosin 0.4 mg Capsule PO (20:31)
[2021-05-28 21:08] LABS: Glucose Point of Care 104 mg/dL (70-110)
[2021-05-29] VITALS: BP 116/79; PULSE 97; RESP 22; TEMP 36.7; O2SAT 98
[2021-05-29] MEDS: HYDROcodone-acetaminophen 5-325 mg Tablet 1 TAB PO ×2 (02:14→08:23)
[2021-05-29 03:17] LABS: Anion Gap 10.8 (5-19); Blood Urea Nitrogen 12 mg/dL (8-23); Calcium 8.8 mg/dL (8.5-10.5); Carbon Dioxide 25 mmol/L (22-29); Chloride 101 mmol/L (98-107); Glucose 93 mg/dL (65-115); Magnesium 1.5 mg/dL (1.7-2.3); Osmolality Calculated 275 mOsm/kg (285-295); Potassium 3.8 mmol/L (3.5-5.1); Sodium 133 mmol/L (136-145)
[2021-05-29 03:18] LABS: Creatinine Clr Calc Pharmacy 80.8741
[2021-05-29 04:00] VITALS: BP 118/77; PULSE 102; RESP 22; TEMP 36.9; O2SAT 96
[2021-05-29 07:12] LABS: Glucose Point of Care 81 mg/dL (70-110)
[2021-05-29 07:43] VITALS: PULSE 92; RESP 16; O2SAT 96
[2021-05-29] MEDS: ipratropium-albuterol 3 mL Neb INHALATION (07:43)
[2021-05-29 07:44] VITALS: PULSE 90; RESP 16; O2SAT 96
[2021-05-29 07:48] VITALS: BP 105/68; PULSE 90; RESP 18; TEMP 36.3; O2SAT 96
[2021-05-29] MEDS: magnesium oxide 400 mg tablet PO (08:24)
[2021-05-29] MEDS: sennosides-docusate Tablet 1 TAB PO (08:24)
[2021-05-29] MEDS: guaiFENesin 600 mg Tablet PO (08:24)
[2021-05-29] MEDS: predniSONE 20 mg Tablet PO (08:24)
[2021-05-29] MEDS: pantoprazole DR 40 mg Tablet PO (08:24)
[2021-05-29 08:55] LABS: SARS Covid-2 Antigen Negative (Negative)
--- NOTE | 2021-05-29 09:07 | P.DS_ITS ---
Discharge Providers Date of Admission: 05/13/21 18:06 Date of Discharge: May 29, 2021 Attending Provider at Admission: Christian Stephens MD Attending Provider at Discharge: Dipti Acosta MD Diagnoses at Discharge Discharge Diagnosis (1) Hypoxia: Status: Acute (2) Urinary retention: Status: Acute (3) Small bowel mass: Status: Acute (4) S/P small bowel resection: Status: Acute Permanent problem details: For small bowel obstruction (5) Pneumatosis coli: Status: Acute (6) Severe protein-energy malnutrition: Status: Acute (7) Rectal cancer: Status: Acute (8) NOEL (acute kidney injury): Status: Acute (9) Adrenal insufficiency: Status: Suspected (10) Chronic use of steroids: Status: Acute (11) H/O colon cancer, stage III: Status: Acute (12) Lung cancer: Status: Chronic (13) Nocturia: Status: Acute (14) BPH loc w urin obs/LUTS: Status: Acute Reason for Visit Reason for Visit: HYPOTENSION, GI BLEED Hospital Course Hospital Course 75-year-old gentleman with past medical history of rectal cancer post resection, currently under treatment for lung cancer, checked, with severe protein energy malnutrition and failure to thrive, presented with symptoms of hypovolemic shock and small bowel obstruction. Initially managed conservatively, repeat CT showed concern for pneumatosis coli,?underwent ex lap and resection of found small bowel mass likely responsible for obstruction 05/18 Pathology returning as small bowel adenocarcinoma. With postoperative ileus, for while on TPN. Complicated also by need for chronic opiates due to multiple past compression fractures. Surgery had been intensively managing his bowel regimen, I also gave him several doses of Relistor. Did not really seem to make much contribution.? Still does not appear to have had a proper bowel movement, some liquid stools after enemas, also?after Gastrografin enema which showed patent descending colon sigmoid, with contrast from prior study seemingly penetrating into the transverse colon. Chronically on steroids, was transiently on hydrocortisone for adrenal insufficiency, now transition to prednisone. Some issues with urinary retention, Mcarthur had to be replaced, restarted on his Flomax, keeping Mcarthur in for now for a week or 2 before repeat voiding trial. He has been quite deconditioned, initially with rather patchy participation with therapy. He is extremely hard of hearing, but with encouragement does cooperate at least partially. Per report son and [id number] are very involved but live in [place]. Patient history of noncompliance in the past. Pumlxuax-oj-lbd works with [employer]. Vericept at discharge patient earlier in the ER because of noncompliance. So far complications multiple places for placement for rehabilitation. TPN and IV Dilaudid were complicating the issue, but now stopped. He is on oxygen, 2 L, has not been using flutter valve and incentive spirometer. On 05/27 patient had 2 large BM. Passing flatus, no signs of peritonitis. Tolerating his diet very well. He was given albumin on 05/28 because of his third spacing and hypotension. He was [facility] to go [facility] however agreed to go to [facility] for short-term rehab. Electrolytes replenished, he was given bowel regimen. He will follow up with Dr. Carrasco. For his adrenal insufficiency he would continue prednisone 20 mg daily. Physical Exam Narrative: Patient was seen comfortably in his bed Saturating well on 2 L nasal cannula Bilateral breath sounds with improvement in rhonchi Chest congestion resolved No abdominal pain, abdomen is soft no signs of peritonitis Nonbloated No signs of edema Appropriate mood and affec Urinary Catheter Management: Mcarthur: Cath Placed During This Visit: yes Reason for Continuing Indwelling Catheter: Other Urinary Catheter Date of Insertion: 05/20/21 Urinary Catheter Time of Insertion: 01:07 Discharge Data Studies Completed and Pending Completed Studies During Hospitalization Category Date Time Status CT abdomen pelvis w con* [id number] Routine Cat Scan 05/17/21 06:[address] abdomen pelvis w con* [id number] Stat Cat Scan 05/13/21 13:11 Completed CXRP [XR chest 1V portable [id number]] Routine Exams 05/21/21 00:56 Completed CXRP [XR chest 1V portable [id number]] Routine Exams 05/26/21 08:46 Completed FL enema w gastrografin [id number] Routine Exams 05/24/21 11:21 Completed XR abdomen 1V* [id number] Routine Exams 05/14/21 16:03 Completed XR abdomen min 2V [id number] Routine Exams 05/16/21 06:00 Completed XR abdomen min 2V 90886 Routine Exams 05/17/21 06:00 Completed XR abdomen min 2V 71135 Routine Exams 05/23/21 07:10 Completed XR abdomen min 2V 51913 Urgent Exams 05/21/21 07:47 Completed XR acute abdomen series 45651 Urgent Exams 05/15/21 07:22 Completed XR chest 1V portable 27803 Routine Exams 05/28/21 09:13 Completed XR chest 1V portable [id number] Stat Exams 05/13/21 12:11 Completed XR chest 1V portable [id number] Stat Exams 05/14/21 16:00 Completed Pathology: Surgical [PTH] Routine Pth 05/18/21 09:47 [place] [id number] Urgent Ultrasound 05/14/21 17:27 Completed CV. echo complete* [id number] Routine Ultrasound 05/14/21 17:27 Completed Pending at discharge Category Date Time Status ES surgery / GI images Routine Exams 05/18/21 07:31 Taken Radiology Impressions Chest/Abdomen X-ray 05/15/21 07:22 IMPRESSION: Findings compatible with distal partial small bowel obstruction which was demonstrated on CT scan of 05/13/2021 with point of obstruction in the right lower quadrant. Bowel distention does not appear as severe as on the CT scan. Abdomen/Pelvis CT 05/17/21 06:59 IMPRESSION: 1. Increasing fluid and distention of the loop of small bowel in the mid midabdomen and RIGHT lower quadrant. Closed loop obstruction should be considered. There is a transition point in the mid abdomen. There are also a few small foci of air in a dilated loop in the RIGHT lower quadrant which extend into the submucosal layer. Early changes of pneumatosis should be considered. 2. There is no free air. 3. New small amount of free fluid in the pelvis. 4. Surgical resection changes in the sigmoid are intact. 5. Mcarthur catheter in a nondistended urinary bladder. 6. New small bilateral pleural effusions. 7. Nasogastric tube in good position. Abdomen X-Ray 05/23/21 07:10 Impression: No change in generalized ileus. Enema w/Water Soluble 05/24/21 11:21 Impression: 1. Incomplete Gastrografin enema and only the descending colon, sigmoid colon and rectum were filled. 2. No strictures or narrowing was seen from the descending colon distally. Chest X-Ray 05/28/21 09:13 IMPRESSION: 1. Improving infiltrate and pleural effusion in the left base since prior study. 2. Left subclavian central line unchanged in position probably ending in the medial aspect of the left subclavian vein. Laboratory Results WBC 6.0 10^3/uL (4.0-10.0) 05/28/21 04:40 RBC 3.37 10^6/uL (4.1-5.3) L 05/28/21 04:40 Hgb 9.6 g/dL (11.7-16.6) L 05/28/21 04:40 Hct 28.7 % (42.0-52.0) L 05/28/21 04:40 MCV 85.2 fl (80-94) 05/28/21 04:40 MCH 28.5 pg (28.0-34.0) 05/28/21 04:40 MCHC 33.4 g/dL (30.0-36.0) 05/28/21 04:40 RDW 17.4 % (12.1-15.1) H 05/28/21 04:40 Plt Count 209 10^3/cmm (130-400) 05/28/21 04:40 MPV 9.1 fL (7.4-10.4) 05/28/21 04:40 Neut % (Auto) 68.1 % 05/28/21 04:40 Lymph % (Auto) 25.2 % 05/28/21 04:40 Gaines % (Auto) 4.9 % 05/28/21 04:40 Eos % (Auto) 1.2 % 05/28/21 04:40 Baso % (Auto) 0.3 % 05/28/21 04:40 Neut # (Auto) 4.05 10^3/uL (1.8-7.7) 05/28/21 04:40 Lymph # (Auto) 1.5 10^3/uL (0.8-4.8) 05/28/21 04:40 Gaines # (Auto) 0.3 10^3/uL (0.2-0.9) 05/28/21 04:40 Eos # (Auto) 0.1 10^3/uL (0.0-0.8) 05/28/21 04:40 Baso # (Auto) 0.0 10^3/uL (0.0-0.1) 05/28/21 04:40 Nucleated RBC % (auto) 0 % 05/28/21 04:40 Nucleated RBCs # 0.0 /100WBC 05/28/21 04:40 D-Dimer 1.27 ug/mIFEU (0-0.59) H 05/13/21 18:01 Sodium 133 mmol/L (136-145) L 05/29/21 02:36 Potassium 3.8 mmol/L (3.5-5.1) 05/29/21 02:36 Chloride 101 mmol/L (98-107) 05/29/21 02:36 Carbon Dioxide 25 mmol/L (22-29) 05/29/21 02:36 Anion Gap 10.8 (5-19) 05/29/21 02:36 BUN 12 mg/dL (8-23) 05/29/21 02:36 Creatinine 0.3 mg/dL (0.7-1.2) L 05/29/21 02:36 GFR Calculation Not Reportable 05/29/21 02:36 Glucose 93 mg/dL (65-115) 05/29/21 02:36 POC Glucose 81 mg/dL (70-110) 05/29/21 06:43 Estimat Average Glucose 120 05/14/21 03:48 Hemoglobin A1c 5.8 % (4.0-6.0) 05/14/21 03:48 Calculated Osmolality 275 mOsm/kg (285-295) L 05/29/21 02:36 Lactic Acid 1.7 mmol/L (0.5-2.2) 05/13/21 12:15 Calcium 8.8 mg/dL (8.5-10.5) 05/29/21 02:36 Phosphorus 1.3 mg/dL (2.5-4.5) L 05/16/21 04:51 Magnesium 1.5 mg/dL (1.7-2.3) L 05/29/21 02:36 Iron 44 ug/dL (59-158) L 05/13/21 12:15 TIBC 174 mcg/dl 05/13/21 12:15 % Saturation 25.2 % (20-50) 05/13/21 12:15 Unsat Iron Binding 130 ug/dL (112-347) 05/13/21 12:15 Total Bilirubin 0.4 mg/dL (0.15-1.2) 05/28/21 04:40 AST 16 U/L (0-40) 05/28/21 04:40 ALT 48 U/L (0-41) H 05/28/21 04:40 Alkaline Phosphatase 120 IU/L (40-130) 05/28/21 04:40 NT-Pro-B Natriuret Pep 1394 pg/mL (0-125) H 05/26/21 04:35 Total Protein 4.6 g/dL (6.6-8.7) L 05/28/21 04:40 Albumin 2.6 g/dL (3.5-5.2) L 05/28/21 04:40 Globulin 2.0 g/dL (1.3-4.6) 05/28/21 04:40 Prealbumin 8.8 mg/dL (20-40) L 05/14/21 03:48 Triglycerides 91 mg/dL (0-150) 05/14/21 03:48 Cholesterol 99 mg/dL (0-200) 05/14/21 03:48 LDL Cholesterol, Calc 46 mg/dL (50-129) L 05/14/21 03:48 Total VLDL Cholesterol 18 mg/dL (0-30) 05/14/21 03:48 HDL Cholesterol 35 mg/dL (60-100) L 05/14/21 03:48 Cholesterol/HDL Ratio 2.83 mg/dL (1.0-5.00) 05/14/21 03:48 Lipase 11 U/L (13-60) L 05/13/21 12:15 Procalcitonin 0.15 ng/mL (0-0.5) 05/13/21 12:15 Random Cortisol 25.82 ug/dL (2.47-19.5) H 05/13/21 12:15 Urine Color Yellow (Yellow) 05/13/21 16:30 Urine Appearance Clear (CLEAR) 05/13/21 16:30 Urine pH 5 (5-7) 05/13/21 16:30 Ur Specific [place] 1.015 (1.005-1.030) 05/13/21 16:30 Urine Protein Neg (Negative) 05/13/21 16:30 Urine Glucose (UA) Norm (Normal) 05/13/21 16:30 Urine Ketones 1+ (Negative) H 05/13/21 16:30 Urine Blood Neg (Negative) 05/13/21 16:30 Urine Nitrate Negative (Negative) 05/13/21 16:30 Urine Bilirubin 1+ (Negative) H 05/13/21 16:30 Urine Urobilinogen Norm mg/dL (Negative) 05/13/21 16:30 Ur Leukocyte Esterase Negative (Negative) 05/13/21 16:30 Ur Eosinophil Smear 0 (0-0) 05/13/21 16:30 Urine Eosinophils No eosinophils seen 05/13/21 16:30 Ur Random Sodium 46 mmol/L 05/13/21 16:30 Ur Random Potassium 41 mmol/L 05/13/21 16:30 Ur Random Chloride 47 mmol/L 05/13/21 16:30 Urine Creatinine 109 mg/dL (39-259) 05/13/21 16:30 SARS-CoV-2 Ag (Rapid) Negative (Negative) 05/29/21 08:20 Blood Type A Positive 05/13/21 12:30 Rho(D) Type Positive 05/13/21 12:30 Antibody Screen Negative 05/13/21 12:30 Vitals Last Vital Signs Temp 97.3 F L 05/29/21 07:48 Pulse 90 05/29/21 07:48 Resp 18 05/29/21 07:48 BP 105/68 05/29/21 07:48 Pulse Ox 96 05/29/21 07:48 Discharge Plan Discharge Patient Disposition: Xfer SNF Condition: Stable Prescriptions: New potassium chloride 20 mEq tablet extended release 20 meq PO DAILY Qty: 10 0RF magnesium 200 mg tablet 200 mg PO DAILY Qty: 20 0RF lactulose 10 gram packet 10 g PO DAILY PRN (Reason: constipation) Qty: 15 0RF Senna-S 8.6-50 mg tablet 1 tab-cap PO DAILY Qty: 60 0RF Continued pantoprazole [Protonix] 40 mg tablet,delayed release (DR/EC) 40 mg PO DAILY Qty: 30 2RF scopolamine base 1 mg over 3 days patch 3 day 1 patch transdermal Q3D PRN (Reason: nausea and vomiting) Qty: 24 2RF magnesium hydroxide [Milk of Magnesia] 400 mg/5 mL suspension 30 ml PO BID PRN (Reason: constipation) Qty: 400 0RF (DME) miscellaneous medical supply Misc See Rx Instructions .Route Qty: 1 0RF Rx Instructions: HOSPITAL BED WITH TRAPEZE BAR docusate sodium [Stool Softener] 100 mg Capsule 100 mg PO BEDTIME PRN (Reason: Constipation) 0RF Spiriva Respimat 1.25 mcg/actuation mist 1 puff inhalation DAILY 0RF psyllium husk [Daily Fiber] 0.4 gram capsule 0.4 g PO BEDTIME PRN (Reason: unknown) 0RF diazepam 5 mg tablet See Rx Instructions .ROUTE .COMPLEX 0RF Rx Instructions: take as directed before mri Cymbalta 20 mg capsule,delayed release(DR/EC) 20 mg PO BID 0RF tamsulosin 0.4 mg capsule 0.4 mg PO BEDTIME 0RF oxycodone 5 mg capsule 5 mg PO Q6H PRN (Reason: Pain) 0RF Rx Instructions: ext med history shows last filled 04/29/21 10d/s mirtazapine 15 mg tablet,disintegrating 15 mg PO BEDTIME 0RF albuterol sulfate 90 mcg/actuation HFA aerosol inhaler 2 puff inhalation Q6H PRN (Reason: pts friend alex states the pt has been out of t) 0RF Eliquis 5 mg tablet 5 mg PO BID 0RF Stiolto Respimat 2.5-2.5 mcg/actuation mist 2 puff inhalation DAILY 0RF prednisone 20 mg tablet 20 mg PO DAILY 0RF capecitabine [Xeloda] 500 mg tablet See Rx Instructions .ROUTE .COMPLEX 0RF Rx Instructions: 1,000mg po bid for 14 days then off for 7 days for a 21 day cycle (pts friend alex states the put this medication on hold) capecitabine 150 mg tablet See Rx Instructions .ROUTE .COMPLEX 0RF Rx Instructions: 300mg po bid for 14 days then off for 7 days for a 21 days cycle (pts friend alex states the put this medication on hold) megestrol 20 mg tablet 20 mg PO BID Qty: 60 0RF ondansetron 4 mg tablet,disintegrating 4 mg PO TID PRN (Reason: nausea and vomiting) Qty: 15 0RF hydrocodone-acetaminophen 5-325 mg tablet 1 tab PO Q6H PRN (Reason: pain) Qty: 15 0RF Rx Instructions: pts friend alex states the pt has 5 tabs left-ext med history shows last filled 05/08/21 4d/s Discharge Orders: Discharge Order (Routine); Ordered 05/29/21 Ordered By: Dipti Acosta Referrals: [facility] [Outside] Moncho Carrasco MD [Physician] - 06/04/21 Paula Singh MD [Staff Physician] - 6 Weeks Discharge Diet: Soft Mechanical Activity Restrictions/Additional Instructions: Diet Advance to normal diet as tolerated, increase fluid intake as much as possible. Activity Avoid strenuous activity for 2 weeks but continue with daily activities including walking as tolerated. Do not lift more than 10 pounds for 2 weeks Return to work/school You can return to work/ school whenever you feel ready as long as you don?t have to lift more than 10 pounds at work. If you have paperwork that needs to be completed for time off from work, please contact my office Driving You can resume driving once you stop using narcotic pain medications, and transition to non-opioid pain medications like Tylenol, Motrin, Aleve, etc. Medications Pain Take opioid pain medications as prescribed and transition to non-opioid pain medications like Tylenol, Motrin, Aleve etc. over the next few days. The goal of the pain medications is to make the pain bearable and not to be pain free since you recently had surgery. Resume all home medications after surgery as per the medication reconciliation list Nausea Nausea is common after surgery, take nausea medications as needed and stay on a liquid bland diet until nausea resolves. Constipation The combination of surgery, anesthesia and pain medications can result in constipation. Take stool softeners and laxatives as prescribed. If you do not have a bowel movement in 3 days, please take an hflo-tiz-nomxivm laxative like MiraLAX to address the constipation. Shower It is ok to shower but avoid getting the wound wet for 48 hours after surgery. Do not soak in bathtub, swimming pool or hot tub for 2 weeks. Wound care If glue has been used on your incisions after surgery, the glue on the incision will peel slowly over the next two weeks. The stitches used are dissolvable and will not need to be removed. Do not apply antibiotics or other medications on the incision Problems with the wound: you can develop some redness around the incision from bruising after surgery. If there is increasing pain, redness, tenderness around the incision with or without drainage, please contact my office to rule out an infection. Sometimes the skin at the incisions can separate, resulting in reopening of the wound. Cover the wound with antibiotic cream and sterile dressings and contact my office. Contact physician Call the office at [phone] during office hours or go the Emergency Room ?Fever to 100.4 or greater ?Shaking chills ?Pain that increases over time ?Redness, warmth, or pus draining from incision sites ?Persistent nausea or inability to take in liquids Discharge Attestations Time Spent in Discharge Care*: less than 30 min Quality Metrics Clinical Quality Measures [ No reported AMI, CVA or VTE this stay] Coding Level of Care Code Acute g [facility] note Diagnoses Hypoxia R09.02 Urinary retention R33.9 Small bowel mass K63.89 S/P small bowel resection Z90.49 Pneumatosis coli K63.89 Severe protein-energy malnutrition E43 Rectal cancer C20 NOEL (acute kidney injury) N17.9 Adrenal insufficiency E27.40 Chronic use of steroids H/O colon cancer, stage III Z85.038 Lung cancer C34.90 Nocturia R35.1 BPH loc w urin obs/LUTS N40.1
[2021-05-29 10:52] VITALS: BP 105/68; PULSE 90; RESP 18; TEMP 36.3; O2SAT 96
--- NOTE | 2021-05-29 12:34 | PC.NURSE ---
Discharge teaching given. Paperwork given to patient to give to [facility]. Vital signs stable. IVs discontinued. Mcarthur is to stay in due to 2 failed void trails. Report given to facility. Patients brother taking patient to facility.
[2021-06-01 11:30] LABS: Bilirubin Urine 1+ (Negative); Blood Urine 3+ (Negative); Glucose Urine UA Trace (Normal); Ketones Urine Negative (Negative); Nitrate Urine Negative (Negative); Protein Urine 1+ (Negative); Urine Appearance Hazy (CLEAR); Urine Color Dark Yellow (Yellow); Urobilinogen Urine 4 mg/dL (Negative); pH Urine 9 (5-7)
[2021-06-01 11:31] LABS: Add Urine Microscopic? YES; Bacteria Urine 2+ /hpf; Leukocyte Esterase Urine Trace (Negative); RBC Urine >100 /hpf (0-2)
[2021-06-01 11:32] LABS: Add Urine Culture? Yes
[2021-06-01 11:59] LABS: Sulfosalicylic Acid Urine Positive (Negative)
== END 2021-05-29 14:37 | disposition skilled nursing facility (03) | DRG 329 ==
LOC: ER 17:54 → ER IP 18:11 → ICU 21:27 → MEDSURG 05-16 00:55
PROVIDERS: Internal Medicine; Surgery; Admitting Provider Student in an Organized Health Care Education/Training Program; Emergency Provider Family Medicine; Visit Provider Internal Medicine
PROC: 0DTA4ZZ Resection of Jejunum, Percutaneous Endoscopic Approach (ICD-10-PCS; CPT 49320; principal; 2021-05-18 08:00)
PROC: 0DTE4ZZ Resection of Large Intestine, Percutaneous Endoscopic Approach (ICD-10-PCS; 2021-05-18 08:00)
DX: C17.1 Malignant neoplasm of jejunum (principal); R57.1 Hypovolemic shock; E43 Unspecified severe protein-calorie malnutrition; C19 Malignant neoplasm of rectosigmoid junction; C78.01 Secondary malignant neoplasm of right lung; N17.9 Acute kidney failure, unspecified; E27.40 Unspecified adrenocortical insufficiency; Z68.1 Body mass index [BMI] 19.9 or less, adult; I95.9 Hypotension, unspecified; Z87.01 Personal history of pneumonia (recurrent); N40.1 Benign prostatic hyperplasia with lower urinary tract symptoms; C61 Malignant neoplasm of prostate; R33.8 Other retention of urine; R39.15 Urgency of urination; R35.1 Nocturia; Z79.52 Long term (current) use of systemic steroids; K59.01 Slow transit constipation; J44.9 Chronic obstructive pulmonary disease, unspecified; I10 Essential (primary) hypertension; Z90.49 Acquired absence of other specified parts of digestive tract; F17.210 Nicotine dependence, cigarettes, uncomplicated; M48.56XD Collapsed vertebra, not elsewhere classified, lumbar region, subsequent encounter for fracture with routine healing; M48.54XD Collapsed vertebra, not elsewhere classified, thoracic region, subsequent encounter for fracture with routine healing; R09.02 Hypoxemia; Z79.01 Long term (current) use of anticoagulants; Z79.51 Long term (current) use of inhaled steroids; Z79.891 Long term (current) use of opiate analgesic; H91.90 Unspecified hearing loss, unspecified ear; D63.8 Anemia in other chronic diseases classified elsewhere; K21.9 Gastro-esophageal reflux disease without esophagitis; G89.29 Other chronic pain; Z92.3 Personal history of irradiation; Z92.21 Personal history of antineoplastic chemotherapy; E86.0 Dehydration
CPT/HCPCS: 36415; 36416; 51702; 71045; 74018; 74019; 74022; 74177; 74270; 80048; 80053; 80061; 81001; 81003; 82436; 82533; 82570; 82962; 83036; 83540; 83550; 83605; 83690; 83735; 83880; 84100; 84133; 84134; 84145; 84300; 85025; 85378; 85999; 86403; 86850; 86900; 87040; 87086; 87426; 87449; 87641; 88309; 93306; 93970; 94640; 94664; 96365; 96367; 96372; 96375; 97116; 97161; 97167; 97530; 97535; 99291; C9113; J1100; J1170; J1630; J1650; J1720; J1756; J1940; J2212; J2405; J2543; J2704; J2710; J3010; J3480; J3490; J3535; J7030; J7512; J7626; J7799; P9041; P9047; Q9963; Q9967

== ENCOUNTER → 2021-06-18 14:20 | Outpatient (BNVA) | payer MEDICARE, MEDICAID, SELFPAY | PROVIDERS: PCP Family Medicine; Visit Provider Orthopaedic Surgery | DX: M54.50 Low back pain, unspecified (principal) | CPT/HCPCS: 72100 ==

== ENCOUNTER 2021-06-20 13:39 | Outpatient (CLI) | payer MEDICARE, MEDICAID, SELFPAY ==
[2021-06-20 14:32] LABS: Basophils % 0.3 %; Eosinophils % 0.1 %; Hematocrit 33.5 % (42.0-52.0); Hemoglobin 10.5 g/dL (11.7-16.6); Lymphocytes # 1.4 10^3/uL (0.8-4.8); Lymphocytes % 9.5 %; Mean Corpuscular HGB Conc 31.3 g/dL (30.0-36.0); Mean Corpuscular Hemoglobin 28.8 pg (28.0-34.0); Mean Platelet Volume 9.2 fL (7.4-10.4); Monocytes # 1.3 10^3/uL (0.2-0.9); Monocytes % 9.2 %; Neutrophils # 11.52 10^3/uL (1.8-7.7); Nucleated Red Blood Cells % 0 %; Platelet Count 291 10^3/cmm (130-400); Red Blood Count 3.64 10^6/uL (4.1-5.3); Red Cell Distribution Width 19.2 % (12.1-15.1); White Blood Count 14.4 10^3/uL (4.0-10.0)
[2021-06-20 15:11] LABS: Carcinoembryonic Antigen 5.9 ng/mL (0.0-4.7)
[2021-06-20 15:22] LABS: Alanine Aminotransferase 22 U/L (0-41); Albumin Level 3.9 g/dL (3.5-5.2); Alkaline Phosphatase 143 IU/L (40-130); Anion Gap 18.6 (5-19); Aspartate Amino Transferase 15 U/L (0-40); Blood Urea Nitrogen 23 mg/dL (8-23); Calcium 9.3 mg/dL (8.5-10.5); Carbon Dioxide 24 mmol/L (22-29); Chloride 101 mmol/L (98-107); Globulin 2.5 g/dL (1.3-4.6); Glucose 109 mg/dL (65-115); Osmolality Calculated 294 mOsm/kg (285-295); Potassium 3.6 mmol/L (3.5-5.1); Sodium 140 mmol/L (136-145); Total Bilirubin 0.7 mg/dL (0.15-1.2); Total Protein 6.4 g/dL (6.6-8.7)
== END 2021-06-20 13:40 | disposition home or self-care (01) ==
PROVIDERS: PCP Family Medicine; Visit Provider Internal Medicine Hematology & Oncology
DX: C61 Malignant neoplasm of prostate (principal); C78.01 Secondary malignant neoplasm of right lung; Z79.899 Other long term (current) drug therapy
CPT/HCPCS: 36415; 80053; 82378; 85025

== ENCOUNTER 2021-06-21 08:42 | Outpatient (CLI) | payer MEDICARE, MEDICAID, SELFPAY ==
--- NOTE | 2021-06-21 13:19 | ONC FU_ITS ---
follow up note Patient: Oswaldo Khan Unit #: [id number]: 1945 Dicatated By: Paula Singh M.D.Date of Visit:Jun 21, 2021 Onc Med Follow-up/Prog Note History of Present Illness: Mr. Khan is a 75-year-old gentleman with history of abdominal pain and rectal bleed underwent colonoscopy and was found to have a rectal mass. A biopsy was obtained and it confirmed adenocarcinoma. Mr Khan then underwent low anterior resection on 03/05/2017. The final pathology report showed invasive adenocarcinoma , tumor invades perirectal adipose and 1 out of 18 lymph nodes was positive with extranodal extension and no loss of nuclear expression of MMR protein . Mr Khan also has history of elevated PSA. On 03/12/2017 his PSA was 35.20. As per patient he has seen Dr. Sunil Martinez , urologist, who is following him and CT scan of abdomen pelvis done on 03/19/2017 showed some prominent retroperitoneal lymph nodes somewhat more prominent than in 2013 Mr Khan took combined chemoradiation for 3 days the first week but then accidentally pulled his [place]ur cath and sustained urethral injury. He was evaluated by Dr. Martinez and underwent cystoscopy exam and reinsertion of Mc[place]ur cath, during this time combined chemoradiation therapy was on hold. He resumed 4 weeks after . Patient was advised to take Xeloda daily for 5 days per week during radiation therapy. His Xeloda daily on the days of radiation only was held for a few days due to persistent diarrhea. He concluded his chemoradiation on 11/03/2017. The diarrhea resolved at that time. Mr. Khan was advised to pursue adjuvant chemotherapy with FOLFOX. had a long discussion regarding the role of adjuvant chemotherapy. Mr Khan agreed to get Port-A-Cath placement but then at the last minute, he changed his mind. Since that time though, he has agreed to pursue the recommended adjuvant chemotherapy. He did agree to port placement. He completed 2 cycles of modified FOLFOX as of 03/04/2018. At his 03/16/2018 appointment, he stated had been having increased abdominal pain and decreased energy. He stated that he did not complete the full 2 days of the fluorouracil pump last one and this he felt like it was making me feel pretty bad . CT scan of the abdomen was done on on 03/19/2018 show stable rectosigmoid anastomosis with no recurrent or adjacent adenopathy. Moderate diffuse constipation. At the patient's request and his refusal to continue with 5-FU infusion, it was opted to change the chemotherapy plan of care to XELOX on 03/23/2018 and with the plan to give him 6 cycles. Mr. Khan had tolerated it well. 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 He completed 5/6 cycles. At his request, Adjuvant chemotherapy with Xelox concluded on 07/05/2018. CT scan of abdomen pelvis done on 09/23/2018 showed no acute findings but 1.3 cm nodule in the right lower lobe of the lung. CT PET scan done on 11/06/2018 showed enlarged prostate with diffusely increase uptake Malignant appearing right lung nodules, most likely from colonic carcinoma Malignant mediastinal lymph nodes, most likely from colonic carcinoma No evidence for local prostate metastatic nodes. Normal activity at rectal anastomosis. Mr Khan had followup in August [address] Esquivel, lock installer. A bronchoscopy was obtained and Mr Khan was diagnosed with sarcoidosis. This was treated with some success but follow-up CT scan of chest done on August 30, 2019 showed evidence of interval progression of disease with bilateral pulmonary nodules. The largest nodule in the right lower lobe posteriorly and right suprahilar with narrowing of right upper lobe bronchus and numerous additional new and progressive pulmonary nodules throughout both lungs right hilar lymphadenopathy. The patient underwent bronchoscopy and endobronchial ultrasound-guided transbronchial needle aspiration of station 11 R, showed significant macrophages and histiocytes but no malignancy. but there was a concern about possibility of malignancy so patient underwent second bronchoscopy on October 28, 2019 which showed a fungating mass was seen at the orifice of right upper lobe bronchus with complete occlusion of airways. The right middle lobe and right lower lobe bronchi were examined up to third subsegmental with no abnormality. Biopsy was obtained came back positive for metastatic colorectal adenocarcinoma as immunohistochemistry stain were positive for CK20 and CDX2. Mr Khan was started on systemic chemotherapy with a Avastin/FOLFIRI on November 16, 2019. Next generation/gene sequencing was ordered and on December 19, 2019, it reported HER-2/peggy negative and says it was not possible to calculate tumor mutational burden and MSI/MMR for the sample because the sequencing data did not reach the minimum depth of coverage required to provide a result on these biomarkers. Follow-up PET/CT from 02/18/2020 reports pulmonary nodules seen on the prior study were improved on the 02/18/2020 study. The index nodule in the right lower lobe that previously measured 2.7 x 1.8 cm with an SUV of 5.5 now measures 1.4 cm with an SUV of 3.2. The other right upper and left lung nodules are similarly improved. Increasing activity is present in the multiple FDG positive mediastinal nodes; as before, these are most consistent with sarcoidosis. These nodules are distributed in the right paratracheal, inferior right perihilar, subcarinal, prevascular and right hilar territories. The previously described right. Rectal node is unchanged in size but has an SUV of 4.2 up from 2.3 previously and consistent with recurrence. Rectal activity is prominent but is most likely physiologic. At that time, his last treatment was on 02/27/2020. As treatment had been on hold due to elevated blood pressure his blood pressure has been 195/110 last visit and is 189/104 despite increasing his lisinopril to 10 mg daily.Continued with amlodipine 5 mg p.o. daily He was also complaining of sigificant headaches, so an MRI scan of the brain was ordered to rule out brain mets. The MRI was done on April 03, 2020 and showed no evidence of metastatic disease to brain and no other acute abnormality seen. Mr Khan has been noncompliant with his chemotherapy as he has skipped many scheduled chemotherapy treatments in the past. An example of his most recent noncompliance; his chemo was given on February 27, 2020 and he did return to the office until April 13, 2020, at that time he was scheduled for chemotherapy on April 16, 2020, but patient did not come. He did eventually resume chemotherapy on April 30, 2020. His last chemotherapy prior to April 30, 2020 was February 27, 2020. His last chemotherapy since April 30, 2020 was on May 28, 2020. He has missed his appointment for several reasons on his part such as just did not feel like coming???sick at stomach , he did realize he was getting chemotherapy that day and had not planned accordingly, etc. For his visit today his last chemotherapy was given on May 28, 2020. His last chemotherapy with 5-FU irinotecan and Avastin was given on May 28, 2020. He has had cardiac work-up with [facility]. He has had a stress test that is negative for cardiac disease. Follow-up CT PET scan done on July 28, 2020 showed the lateral right lower lobe nodule demonstrated ongoing positive response to therapy, now subcentimeter in size, with minimal FDG activity. The extensive mediastinal adenopathy seen previously now minimally FDG positive, with exception of the right hilar node which is now has an SUV of 6, down from 13.6 previously. The right perirectal node has SUV of 3.4 and is unchanged in size, indicating stable disease. No new lesion seen. He has had persistent frontal headaches. He was given oral antibiotic for presumed sinusitis with that his headaches did improve. Mr. Khan had a MRI of the brain with and without contrast on 04/05/2020 which reported no evidence of any intracranial enhancements or metastatic disease. There was mild small vessel changes and moderate parenchymal volume loss but no restricted diffusion to suggest acute ischemia. He has had persistent headaches and some concern that this could have been due to the palonosetron given his premedications. However since he started just Avastin and Xeloda August 22, 2020, his headaches have persisted. He is also complaining of progressive shortness of breath, but it is noted that he reports that he isstill smoking about pack a day. Mr Khan has not been too keen to continue systemic chemotherapy as he has just started feeling better-gradually since his full last chemotherapy dose was last given on May 28, 2020., Follow-up CT PET scan done on November 24, 2020 shows stable bilateral pulmonary nodules, remain subcentimeter in size with minimal FDG activity. No significant change in right hilar node. Minimal progression of right perirectal node which is slightly prominent with SUV of 4.5, a new T6 compression fracture, Subsequently , patient underwent MRI scan of thoracic spine on December 18, 2020 which shows wedge-shaped compression fractures are acute to subacute and diffuse increased signal throughout T7 and T8 vertebral body with very minimal extension into posterior elements. Approximately 40% compression deformity without retropulsion. No enhancement or associated soft tissue mass seen. c/o persistent mid back pain with no radiation to lower extremity, urine no urine or stool incontinence, patient underwent MRI scan of thoracic spine on December 18, 2020 which shows wedge-shaped compression fractures are acute to subacute and diffuse increased signal throughout T7 and T8 vertebral body with very minimal extension into posterior elements. Approximately 40% compression deformity without retropulsion. No enhancement or associated soft tissue mass seen. Patient was referred to orthopedics but as per orthopedic office patient was no-show but patient said he did not get any call from orthopedics office. We will reschedule him for treatment Underwent CT PET scan on March 23, 2021 which shows marginal improvement in the right hilar lymph node, now with SUV 5.3 compared to 7 previously right perirectal adenopathy is minimally improved now with SUV of 2.6. The right lower lobe, nodule that is previously subcentimeter in size FDG negative now 1.4 cm with SUV of 4.2. New malignant activity is present in the enlarging posterior left lower lobe and right lower lobe nodules measuring up to 1.3 cm. Other subcentimeter nodules are more prominent since prior study. Last dose of chemotherapy with Xeloda and Avastin was given on December 31, 2020, Patient has been noncompliant and also off and on hospital visits for low back pain due to compression fracture, Patient was evaluated by orthopedics and surgical intervention was planned, Came for follow-up, complaining of significant weight loss due to progressive nausea, vomiting and poor appetite as per patient he was admitted to hospital on May 13, 2021 with progressive nausea vomiting and unable to eat and CT scan of abdomen done on May 13, 2021 showed increasing fluid distention of small bowel. Suspect moderate, progressive distal small bowel obstruction in the right lower quadrant. Change in caliber of small bowel in the right lower quadrant. No free fluid, mild progression of disease in the right lung base. No metastatic disease in the liver or adrenal gland. Numerous osteoporotic compression fracture. CT PET scan done on March 23, 2021 was negative for metastatic disease at that time. Patient underwent surgical evaluation and diagnostic laparoscopy, laparoscopic lysis of adhesions, small bowel resection with stapled end-to-end anastomosis and final pathology report confirmed adenocarcinoma involving jejunum, moderately differentiated, tumor size 2.5 cm. Tumor invades through muscularis propria into subserosa and extends into mesentery. Lymphovascular invasion identified. Margins were clear. No lymph nodes identified in the sample. T3, NX adenocarcinoma of the jejunum was confirmed. Patient tolerated procedure well but lost significant weight. During hospitalization patient underwent echocardiogram on May 13, 2021 which showed ejection fraction 60%. As per patient back surgery was postponed due to abdominal obstruction and now under consideration and next 2 or 3 weeks. Patient lives alone. Denies any melena or hematochezia, denies any hemoptysis or hematemesis, denies any fever chills Medications: [employer] Triple Magnesium Complex Capsule Oral, diazePAM (5 mg) Tablet Oral daily PRN, DULoxetine HCl 1 Capsule (of 20 mg) Capsule Delayed Release Particles Oral b.i.d., Flomax 1 Tablet (of 0.4 mg) Capsule Oral daily, HYDROcodone-Acetaminophen 1 - 2 Tablet (of 10-325 mg) Oral q 4 hours PRN, Ibuprofen 3 Tablet (of 200 mg) Oral daily PRN, Lisinopril (40 mg) Tablet Oral daily, Megestrol Acetate 1 Tablet (of 20 mg) Oral b.i.d., Mirtazapine Tablet Oral, Ondansetron HCl 1 Tablet (of 4 mg) Oral t.i.d. PRN, Pantoprazole Sodium 1 Tablet (of 40 mg) Tablet, enteric coated Oral daily, predniSONE 1 Tablet (of 20 mg) Oral daily, SB Stool Softener (100 mg) Capsule Oral daily, Xeloda 2 Tablet (of 500 mg) Oral b.i.d., Xeloda 2 Tablet (of 150 mg) Oral b.i.d. Allergies: No Known Allergies. Review of Systems: Review of Systems is not available for this patient. Vital Signs: Performed on Jun 21, 2021 09:08 Height - 70.00 in Pain - 6 Fatigue - 5 Performed on Jun 21, 2021 08:46 Height - 70.00 in Weight - 138.6 lbs (LOW) BSA - 1.79 sq.m BMI - 19.89 Temperature - 98.0 F (LOW) Pulse - 86 /min Respiration - 22 /min BP - 121/77 mm(hg) O2 Sat - 91 % (LOW) Performance Status: 2 - Ambulatory/capable of all self-care, unable to perform any work activities. Up and about more than 50% of waking hours. (ECOG) Physical Examination: ENMT - No mouth sores, no thrush, no jaundice, Respiratory - Poor air entry, Cardiovascular - Regular rate and rhythm of heart, Abdomen - Soft, bowel sounds present, Extremities - 1+ edema bilaterally. Lab/Imaging: Most recent lab results are not available for this patient. Impression: Invasive adenocarcinoma of upper rectum status post APR on 03/05/2017 final pathology showed tumor size 5.5 x 5.4 cm low-grade, tumor invades perirectal adipose p T3, lymphovascular invasion present, no perineural invasion seen 1 out of 18 positive lymph nodes N1a , extranodal extension present N1 stage IIIA No loss of nuclear expression of MMR protein Elevated PSA, on 03/12/2017 it was 35.20 with prostate enlargement, being followed by Dr. Martinez. s/p chemoradiation with Xeloda as chemosensitizer. till 11/03/17 discussed with patient regarding the role of adjuvant chemotherapy in stage IIIa rectal cancer, as literature has shown adjuvant chemotherapy improves disease-free survival. Patient has been reluctant to consider chemotherapy because of severe diarrhea during chemoradiation for rectal CA. He was assured that we will adjust/modify his adjuvant chemotherapy to make it tolerable. Patient, now agreed to get port placement and for adjuvant chemotherapy modified FOLFOX every 2 weeks ???12. All the side effect and possible benefits were discussed in detail again and patient expressed understanding. Mr Khan agreed. He was referred back to Dr. Merritt for Port-A-Cath placement and began his first cycle of FOLFOX on 02/09/2018 .Patient developed abdominal pain for which he underwent CT scan of abdomen on 03/19/2018 showed moderate constipation, and stable rectosigmoid anastomosis with no recurrent mass or adjacent adenopathy and bilateral lower lobe pulmonary nodules are stable since 02/03/2017. No evidence of metastatic disease elsewhere. Following day patient had large bowel movement and since then no more abdominal pain. Patient expressed intolerance to 5-FU infusion chemotherapy and also consider it inconvenient so requesting Xeloda pills instead of 5-FU infusion. His treatment plan was changed to XELOX beginning 03/23/2018. He has tolerated it well thus far. He completed 5 of the planned [address] PET scan done on 11/06/2018 showed prostate is enlarged, measuring 6 cm in diameter with diffusely increased FDG activity, most intense in the central prostate. Normal tracer activity at the rectal anastomosis There are 2 pulmonary nodules in the right lower lobe and one in the right upper lobe, the index nodule in the right lower lobe measuring 1.1 x 1.6 cm with SUV of 3.5. Most consistent with metastatic disease, likely from colonic primary. Multiple hypermetabolic mediastinal lymph nodes are present, consistent with metastatic disease, in the inferior right perihilar 1.9 cm, 5.2 SUV. Subcarinal, prevascular, right paratracheal, 1.9 cm, 6.8 SUV. Right hilar territories. Subcentimeter nodes are also noted in the superior right paratracheal region. Too small to characterize. Mr. Khan had established care with Dr. Esquivel in pulmonology. A bronchoscopy was performed and he was found to have sarcoidosis which was treated with some success however a follow-up CT of the chest done on August 29, 2019 showed interval progression of disease with bilateral pulmonary nodules with the largest nodule in the right lower lobe posteriorly. There was activity in the right suprahilar with narrowing of the right upper lobe bronchus and numerous additional new and progressive pulmonary nodules throughout both lungs. There was right hilar lymphadenopathy. He underwent another bronchoscopy and endobronchial ultrasound-guided transbronchial needle aspiration of station 11 R. This showed significant macrophages and histiocytes but no malignancy. However given his history there was concern about the possibility of malignancy therefore he underwent a second bronchoscopy on October 28, 2019. This did show a fungating mass at the orifice of the right upper lobe bronchus with complete occlusion of both airways. The right middle lobe and right lower lobe bronchi were examined up to a third subsegmental with no abnormality. A biopsy was obtained and did report positive for metastatic colorectal adenocarcinoma. Immunohistochemistry stains were positive for CK20 and CDX2. Mr. Khan was advised to pursue pallitave chemotherapy with FOLFOX Avastin. He began his first dose on November 16, 2019. Follow-up PET/CT from 02/18/2020 reports pulmonary nodules seen on the prior study were improved on the 02/18/2020 study. The index nodule in the right lower lobe that previously measured 2.7 x 1.8 cm with an SUV of 5.5 now measures 1.4 cm with an SUV of 3.2. The other right upper and left lung nodules are similarly improved. Increasing activity is present in the multiple FDG positive mediastinal nodes; as before, these are most consistent with sarcoidosis. These nodules are distributed in the right paratracheal, inferior right perihilar, subcarinal, prevascular and right hilar territories. The previously described right. Rectal node is unchanged in size but has an SUV of 4.2 up from 2.3 previously and consistent with recurrence. Rectal activity is prominent but is most likely physiologic. patient resumed his systemic chemotherapy on April 30, 2020 and received next dose on May 28, 2020 and then after that did not take further treatment due to 1 or other reasons subsequently underwent follow-up CT PET scan on May 30, 2020 which shows improvement in the right lower lobe pulmonary nodule. Improvement on the resolution of uptake in mediastinal lymph nodes. Stable FDG positive right perirectal node. Patient declined to continue current systemic therapy with Avastin/FOLFIRI but agreed to take oral Xeloda/Avastin so, at patient's request, his Avastin/FOLFIRI, was discontinued after last dose given on May 28, 2020 and he was switched to oral Xeloda 625 mg per metered squared twice daily day 1 through 14 along with Avastin 7.5 mg/kg on day 1 and then repeat cycle every 3 weeks on 08/22/2020. Follow-up CT PET scan done on November 24, 2020 shows tiny, bilateral pulmonary nodules seen previously are unchanged on current study. Right hilar lymph node is stable with SUV of 7,. No significant increase from 6 on previous study. The right perirectal node is slightly more prominent on the current study with SUV of 4.5 consistent with mild progression and a new T6 vertebral body compression fracture Plan: Discussed with patient regarding his CT scan findings and recent small bowel resection pathology which confirmed T3 NX moderately differentiated adenocarcinoma the jejunum, clinically appears second primary as patient has history of upper rectum adenocarcinoma now with pulmonary mets. Patient was treated with palliative therapy with Avastin/Xeloda till December 2020 after that his follow-up CT PET scan done in March showed stable disease at that time because of overall decline in performance status due to chronic back pain due to compression fracture and kyphoplasty was under consideration patient decided to hold on chemotherapy until back pain/surgery is taking care of. Later on patient and family decided to proceed with hospice evaluation and then patient missed many follow-up appointments until he was admitted to hospital on May 13, 2021 with progressive nausea vomiting and diagnosed with small bowel obstruction for which he underwent laparoscopic small bowel resection and adhesion lysis. Patient has lost significant weight, his performance status has declined too, moreover he lives alone, patient will not tolerate systemic therapy unless his performance status improves and patient also wants to wait till back surgery done which, as per patient is scheduled in 2 to 3 weeks. In that case, we will see him back in 1 month, patient was advised to maintain hydration and proper nutrition, we will discuss with his family regarding his social therapy as patient lives alone, patient will need some kind of supervision [id number] if any case chemotherapy is considered. Patient was advised to quit smoking and was offered any assistance he may need Return to clinic in 1 month with CBC CMP and CEA and for further discussion regarding treatment plan options Signed By: Paula Singh M.D. <<Signature on File>>
== END 2021-06-21 08:43 | disposition home or self-care (01) ==
PROVIDERS: PCP Family Medicine; Visit Provider Internal Medicine Hematology & Oncology
DX: C20 Malignant neoplasm of rectum (principal); C77.8 Secondary and unspecified malignant neoplasm of lymph nodes of multiple regions; N40.0 Benign prostatic hyperplasia without lower urinary tract symptoms; R97.20 Elevated prostate specific antigen [PSA]; R91.1 Solitary pulmonary nodule; F17.210 Nicotine dependence, cigarettes, uncomplicated; Z79.899 Other long term (current) drug therapy; Z92.21 Personal history of antineoplastic chemotherapy
CPT/HCPCS: 36415; 99214

== ENCOUNTER 2021-06-25 15:44 | Inpatient (IN) | payer MEDICARE, MEDICAID, SELFPAY ==
[2021-06-25] VITALS (16 sets, daily range): BP systolic 72–128; BP diastolic 52–90; PULSE 107–138; RESP 16–30; TEMP 35.8; O2SAT 94–100; BMI 19.5
--- NOTE | 2021-06-25 15:45 | W.ED.SOB ---
HPI - SOB/Dyspnea General: Chief Complaint: Shortness of Breath/Dyspnea Stated Complaint: SOB/WHEEZING Time Seen by Provider: 06/25/21 15:45 Limitations: physical limitation History of Present Illness: HPI Narrative: Mr. Khan is a 75-year-old gentleman with significant past medical history of arrhythmia on anticoagulation, hypertension, colon cancer, Metastatic lung cancer, prostate cancer, history of aspiration pneumonia, chronic steroid use who presents to the emergency department due to shortness of breath and respiratory distress. The patient himself is very hard of hearing which somewhat limits history. Apparently for 5 days ago he suffered 2 falls where he fell back due to generalized weakness. Additionally he has perhaps noticed mild increased swelling and shortness of breath. EMS found the patient to be hypoxemic on supplemental oxygen with oxygen saturations in the mid 70s. They administered an albuterol treatment as well as 40 mg of Lasix and increased his oxygen with improvement. Overall intensity of symptoms is moderate to severe. Course has persisted or worsened for some period of unknown time. No other specific changes in health, exacerbating, or alleviating factors identified. History is limited by patient's hard of hearing. Onset (ago): day(s) Context: trauma/injury Severity: severe Review of Systems General: Reports: 10 or more systems reviewed and unremarkable except in HPI and below PFSH ED PFSH: Medical History Acid reflux Adrenal insufficiency Anxiety about health Aspiration pneumonia BPH loc w urin obs/LUTS Chronic use of steroids Compression fx, thoracic spine Constipation, slow transit COPD (chronic obstructive pulmonary disease) Essential (primary) hypertension Fracture, thoracic vertebra, compression H/O colon cancer, stage III History of pulmonary embolus (PE) Lumbar compression fracture Lung cancer Mediastinal lymphadenopathy Nocturia Prostate CA Rectal cancer Sarcoidosis Small bowel obstruction Surgical History History of liver biopsy / Percutaneous abscess drainage Port-A-Cath in place S/P colon resection 2015 ([place]) -- sigmoid resection for colon cancer / cholecystectomy / incidental appendectomy / umbilical hernia repair S/P small bowel resection (05/18/21) For small bowel obstruction Family History Mother , 62 CAD (coronary artery disease) Diabetes Father , 74 Cancer Colon Social History Smoking and tobacco status: current every day smoker cigarettes Packs smoked per day: 1 Years cigarettes smoked: 45 [ Other cigarette details: currently down to half pack or so] Quit status (tobacco): has tried quititng Second hand smoke exposure: Yes Smoking risk assessment/counseling performed?: No Alcohol intake: never Desire information about alcohol rehabilitation?: No Counseling given: No Desire information about substance/drug rehabilitation?: No Counseling given: No Adopted: No Caregiver/support person: No Lives independently: Yes Household members: none Housing: House Marital status: Current occupational status: retired History of recent travel: No Current gender identity: Male Physical Exam Const: COMMON NORMALS: alert GENERAL APPEARANCE: cooperative, well developed, in distress (respiratory, increased worko breathing, supplemental oxygen in place) and ill appearing HENMT: COMMON NORMALS: normocephalic and atraumatic HEAD & SCALP: normocephalic and atraumatic THROAT: posterior oropharynx normal Eye: COMMON NORMALS: conjunctivae normal CONJUNCTIVA: Yes conjunctivae normal SCLERA: sclerae normal Neck/C-Spine: COMMON NORMALS: supple GENERAL: Yes trachea midline Resp: EFFORT & INSPECTION: Yes tachypneic and Yes uses accessory muscles Cardio: COMMON NORMALS: regular rhythm RATE: tachycardic RHYTHM: regular rhythm GI: COMMON NORMALS: Soft to palpation PALPATION: Yes Soft to palpation and No Tenderness to palpation present (GI) Extremity: GENERAL: Yes normal exam except as noted and Yes edema Neuro: COMMON NORMALS: moves all extremities SENSORIUM/ORIENTATION: Yes alert and No Orientation impaired Psych: COMMON NORMALS: mental status grossly normal and Normal thought process present THOUGHT PROCESS: Normal thought process present Procedures Central Line Placement Right IJ: Time Out Performed: Yes Patient Placed on Monitor/Pulse Ox: Yes MD Prep: mask, gown and gloves Central Line Prep: Chlorhexidine scrub and sterile drapes applied Local Anesthetic: lidocaine 1% Amount of anesthesia used (mL): 2 Ultrasound Used for Placement: Yes Central Line Lumen Inserted: triple Post Procedure: sutured in place, good blood return, all ports aspirated, flushed, capped and sterile dressing applied Post Procedure X-Ray: tip of catheter in good position and no pneumothorax seen Patient Tolerated Procedure: well Complications: none Course ED course: - Patient was seen and evaluated by me at bedside - Patient placed on cardiac monitors, IV access obtained - Initial evaluation notable for ill appearance, respiratory distress - RT treatment and BiPAP ordered, respiratory treatments ordered. - Labs and xrays personally interpreted by me - Labs notable for no leukocytosis, decreased hemoglobin at baseline. Initial ABG is likely venous, mild hypercapnia noted. No acute electrolyte arrangement. Initial troponin is elevated with elevated delta troponin. BNP elevated. - Lovenox given for NSTEMI though may be more likely type II - Imaging notable for negative head CT. CTA with evidence of mucous plugging and likely patch pneumonia. Patient high risk by WELL's criteria - Upon serial reexamination after treatment the patient was improved - Based on patient history, evaluation, and testing as interpreted the most likely cause of the patient's condition is pneumonia and sepsis with acute on chronic hypoxic and hypercapnic respiratory failure - The results of ED evaluation were discussed with the patient including plan for admission due to requirement for level of care not available if discharged to prevent significant worsening/deterioration. - Hospitalist service contacted and agreed to admit the patient. - At the request of hospitalist, given predicted clinical course as well as current degree of illness, a central line was placed. Patient unable to consent due to mental status though I did attempt to the best of my ability to explain procedure to patient. Post placement imaging reviewed and satisfactory. Patient tolerated procedure well as noted. Note: Click bubbles or prepopulated sylvester in note writing are used for assistance with data collection and billing and are inherently more limited than narrative and other text portions of this note. Please use narrative for additional clinical history and defer to narrative/free test for any case of contradictory information. If information appears in only free text or click bubble it should be considered present or absent as reported. Please contact note freelance copywriter for clarifications of clinical information or contradictory information. MDM is a brief summary, contradictory or erroneous seeming information should be clarified and full note should be reviewed. Vital Signs: Vital signs: Vital Signs Temperature 97.8 F 07/01/21 15:49 Pulse Rate 99 07/01/21 15:49 Respiratory Rate 18 07/01/21 15:49 Blood Pressure 126/75 07/01/21 15:49 Pulse Oximetry 91 07/01/21 15:49 MDM - SOB/Dyspnea Medical Decision Making 75-year-old gentleman with complex past medical history presenting with acute on chronic respiratory distress. Patient found to have mucous plugging as well as sepsis pneumonia. Admitted for definitive management. Medical Records I reviewed the patient's medical records. Lab Data I reviewed the patient's lab results. : 07/01/21 04:45 07/01/21 04:45 Labs/Radiology: Radiology Impressions Chest CTA 06/25/21 16:58 IMPRESSION: 1. Interval development of mucous plugging in the right lower lobe bronchus extending into multiple segmental and subsegmental bronchi in the right lower lobe. There is also interval development of patchy atelectasis versus pneumonia in the right lower lobe. Recommend followup chest imaging to insure resolution of these findings. 2. No evidence for pulmonary embolism. 3. Increase in size of a right suprahilar mass invading the distal right mainstem bronchus, right upper lobe bronchus, and bronchus intermedius. 4. Findings concerning for worsening metastatic disease with increase in size of multiple pulmonary nodules and 2 new nodules in the right lower lobe. Fleischner Society follow up recommendations for incidental nodules are not indicated. Follow up per the patient's medical condition. 5. Incidental/nonacute findings are listed in the report. Head CT 06/25/21 16:58 IMPRESSION: No acute intracranial abnormality. KUB X-Ray 06/25/21 20:24 IMPRESSION: Mild intestinal flatus and possible constipation. No definite obstruction. Abdomen/Pelvis CT 06/25/21 23:09 IMPRESSION: 1. No acute abnormality is seen in the abdomen or pelvis. No intestinal obstruction. 2. Possible contrast nephropathy. 3. Prostatomegaly. 4. Atherosclerosis and mild ectasia of the infrarenal abdominal aorta. Venous Duplex 06/25/21 23:09 IMPRESSION: No DVT is seen on the images provided. Mild bilateral lower extremity edema. Chest X-Ray 07/01/21 08:12 IMPRESSION: 1. Development of the large right pleural effusion with significant compressive atelectasis of the right lung since the prior study. There is infiltrate noted in the ventilated portion of the right lung. 2. There appears to be significant interval widening of the superior mediastinum since prior study. Laboratory Results WBC 9.2 10^3/uL (4.0-10.0) 06/25/21 16:00 RBC 3.64 10^6/uL (4.1-5.3) L 06/25/21 16:00 Hgb 10.7 g/dL (11.7-16.6) L 06/25/21 16:00 Hct 34.0 % (42.0-52.0) L 06/25/21 16:00 MCV 93.4 fl (80-94) 06/25/21 16:00 MCH 29.4 pg (28.0-34.0) 06/25/21 16:00 MCHC 31.5 g/dL (30.0-36.0) 06/25/21 16:00 RDW 18.6 % (12.1-15.1) H 06/25/21 16:00 Plt Count 270 10^3/cmm (130-400) 06/25/21 16:00 MPV 9.4 fL (7.4-10.4) 06/25/21 16:00 Neut % (Auto) 82.1 % 06/25/21 16:00 Lymph % (Auto) 10.0 % 06/25/21 16:00 [place] % (Auto) 7.0 % 06/25/21 16:00 Eos % (Auto) 0.1 % 06/25/21 16:00 Baso % (Auto) 0.4 % 06/25/21 16:00 Neut # (Auto) 7.51 10^3/uL (1.8-7.7) 06/25/21 16:00 Lymph # (Auto) 0.9 10^3/uL (0.8-4.8) 06/25/21 16:00 [place] # (Auto) 0.6 10^3/uL (0.2-0.9) 06/25/21 16:00 Eos # (Auto) 0.0 10^3/uL (0.0-0.8) 06/25/21 16:00 Baso # (Auto) 0.0 10^3/uL (0.0-0.1) 06/25/21 16:00 Nucleated RBC % (auto) 0 % 06/25/21 16:00 Nucleated RBCs # 0.0 /100WBC 06/25/21 16:00 D-Dimer 1.06 ug/mIFEU (0-0.59) H 06/25/21 16:00 Specimen Type Arterial 06/25/21 16:26 Sample Site Radial, left 06/25/21 16:26 ABG pH 7.34 (7.35-7.45) L 06/25/21 16: ABG pCO2 56.2 mmHg (35-45) H 06/25/21 16: ABG pO2 26.1 mmHg (80.0-100.0) L* 06/25/21 16: ABG HCO3 30.2 mmol/L (22-26) H 06/25/21 16: ABG Base Excess 3.3 mmol/L (-2.0-2.0) H 06/25/21 16: Solitario Test Pos 06/25/21 16: Hematocrit 33.4 % (42-52) L 06/25/21 16: O2 Delivery Device Nc 06/25/21 16: O2 Liters/Min 3.0 % 06/25/21 16: FiO2 32.0 % 06/25/21 16: At Home Independent Call Center Agent ID glc 06/25/21 16:26 Blood Gas Notified Time 1645 06/25/21 16:26 Sodium 140 mmol/L (136-145) 06/25/21 16:00 Potassium 4.5 mmol/L (3.5-5.1) 06/25/21 16:00 Chloride 100 mmol/L (98-107) 06/25/21 16:00 Carbon Dioxide 26 mmol/L (22-29) 06/25/21 16:00 Anion Gap 18.5 (5-19) 06/25/21 16:00 BUN 20 mg/dL (8-23) 06/25/21 16:00 Creatinine 0.9 mg/dL (0.7-1.2) 06/25/21 16:00 GFR Calculation Not Reportable 06/25/21 16:00 Glucose 127 mg/dL (65-115) H 06/25/21 16:00 Calculated Osmolality 294 mOsm/kg (285-295) 06/25/21 16:00 Lactic Acid 1.9 mmol/L (0.5-2.2) 06/25/21 16:00 Calcium 8.9 mg/dL (8.5-10.5) 06/25/21 16:00 Magnesium 1.0 mg/dL (1.7-2.3) L 06/25/21 18:15 Total Bilirubin 0.5 mg/dL (0.15-1.2) 06/25/21 16:00 AST 26 U/L (0-40) 06/25/21 16:00 ALT 17 U/L (0-41) 06/25/21 16:00 Alkaline Phosphatase 165 IU/L (40-130) H 06/25/21 16:00 Troponin T Baseline 154 ng/L (0-15) H* 06/25/21 16:00 Troponin T 120 Minute 183.6 ng/L (0-15) H 06/25/21 18:15 Delta Troponin T 29.6 ABS# (0-10) H* 06/25/21 18:15 Troponin T Hi Sens 6Hr 184.0 ng/L (0-15) H 06/25/21 20:52 Troponin T Hi Sens 6Hr Delta 30.0 ng/L (0-12) H* 06/25/21 20:52 C-Reactive Protein 148.3 mg/L (0.0-4.9) H 06/25/21 16:00 NT-Pro-B Natriuret Pep 3955 pg/mL (0-125) H 06/25/21 16:00 Total Protein 6.1 g/dL (6.6-8.7) L 06/25/21 16:00 Albumin 3.3 g/dL (3.5-5.2) L 06/25/21 16:00 Globulin 2.8 g/dL (1.3-4.6) 06/25/21 16:00 Procalcitonin 0.15 ng/mL (0-0.5) 06/25/21 16:00 TSH 0.93 uIU/mL (0.27-4.20) 06/25/21 18:15 Coronavirus 229E (PCR) Not detected (NOT DETECT) 06/25/21 18:38 SARS-CoV-2 (PCR) Not detected (NOT DETECT) 06/25/21 18:38 EKG Data EKG 1: I personally reviewed and interpreted this EKG as follows: EKG Interpretation Date: 06/25/21 EKG interpretation time: 15:54 Interpretation: Twelve-lead EKG shows a regular rhythm at a rate of 137. OR interval 120, QRS duration 97, QTc 391. Normal axis. Interpretation: Sinus tachycardia. Nonspecific ST segment abnormalities. Critical Care Time Critical Care Time: Critical Care Time: Yes Total Critical Care Time: 45 Attestation: Due to a high probability of clinically significant, possibly life threatening deterioration, the patient required my highest level of attention and preparedness to intervene emergently and I personally spent this critical care time directly and personally managing the patient. This critical care time included obtaining a history; examining the patient; pulse oximetry; ordering and review of laboratory and imaging studies; arranging urgent treatment with development of a management plan; evaluation of patient's response to treatment; frequent reassessment; and, discussions with other providers as applicable. It was exclusive of separately billable procedures. Primary system involved is pulmonary Discharge Plan Discharge Patient Disposition: Admitted As Inpatient Admit Provider: Patricio Carbajal Clinical Impression: Pneumonia, Sepsis, Acute on chronic respiratory failure with hypoxia and hypercapnia, Acute non-ST elevation myocardial infarction (NSTEMI) Acute on chronic congestive heart failure Qualifiers: Heart failure type: diastolic Qualified Code(s): I50.33 - Acute on chronic diastolic (congestive) heart failure Condition: Stable Discharge Diet: Usual diet Discharge Activity: As per PT/OT instructions Coding Level of Care Code ED Machine Pan Greaser for Izabel Rojas
--- NOTE | 2021-06-25 15:51 | XRR_ITS ---
PROCEDURE INFORMATION: Exam: XR Chest Exam date and time: 06/25/2021 3:05 PM Age: 75 years old Clinical indication: Shortness of breath; Additional info: SOB TECHNIQUE: Imaging protocol: XR of the chest. Views: 1 view. COMPARISON: CR XR chest 1V portable [id number] 05/28/2021 9:19 AM FINDINGS: Lungs: Left lung base infiltrate has intervally resolved. No consolidation. Pleural spaces: No pleural effusion. No pneumothorax. Heart/Mediastinum: No cardiomegaly. Bones/joints: Kyphoplasty material noted within the mid and lower thoracic spine. Visualized osseous structures are intact. XR/XR chest 1V portable [id number] IMPRESSION: No acute findings.
--- NOTE | 2021-06-25 15:52 | ECG_ITS ---
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 Measurements Intervals [place] Rate: 137 P: 72 IA: 120 QRS: 71 QRSD: 97 T: 61 QT: 311 QTc: 470 Interpretive Statements SINUS TACHYCARDIA Compared to ECG 03/17/2021 18:32:43 No significant change Electronically Signed On 06-25-2021 16:38:28 CDT by Morena Rubio M.D. [id number]
[2021-06-25] MEDS: ipratropium-albuterol 3 mL Neb INHALATION (16:07)
[2021-06-25 16:08] LABS: Basophils % 0.4 %; Eosinophils % 0.1 %; Hemoglobin 10.7 g/dL (11.7-16.6); Lymphocytes # 0.9 10^3/uL (0.8-4.8); Mean Corpuscular HGB Conc 31.5 g/dL (30.0-36.0); Mean Corpuscular Hemoglobin 29.4 pg (28.0-34.0); Mean Corpuscular Volume 93.4 fl (80-94); Mean Platelet Volume 9.4 fL (7.4-10.4); Monocytes # 0.6 10^3/uL (0.2-0.9); Neutrophils # 7.51 10^3/uL (1.8-7.7); Neutrophils % 82.1 %; Nucleated Red Blood Cells % 0 %; Platelet Count 270 10^3/cmm (130-400); Red Blood Count 3.64 10^6/uL (4.1-5.3); Red Cell Distribution Width 18.6 % (12.1-15.1); White Blood Count 9.2 10^3/uL (4.0-10.0)
[2021-06-25 16:35] LABS: Blood Gas Sample Type Arterial
[2021-06-25 16:38] LABS: ABG PCO2 56.2 mmHg (35-45); ABG PH Result 7.34 (7.35-7.45); Base Excess ABG 3.3 mmol/L (-2.0-2.0); Blood Gas Allen Test Pos; Blood Gas Operator Identificat glc; Blood Gas Sample Site Radial, left; HCO3 ABG 30.2 mmol/L (22-26); Oxygen Device NC; PO2 ABG 26.1 mmHg (80.0-100.0)
[2021-06-25 16:39] LABS: Arterial Blood Gas Hematocrit 33.4 % (42-52); Blood Gas CCRB Time 1645
[2021-06-25 16:46] LABS: NT Pro B Type Natriuretic Pept 3955 pg/mL (0-125); Procalcitonin 0.15 ng/mL (0-0.5)
[2021-06-25 16:54] LABS: Troponin(5th) Baseline 154 ng/L (0-15)
--- NOTE | 2021-06-25 16:58 | CTR_ITS ---
PROCEDURE INFORMATION: Exam: CT Head Without Contrast Exam date and time: 06/25/2021 5:32 PM Age: 75 years old Clinical indication: Altered mental status/memory loss; Additional info: ? Mental status change TECHNIQUE: Imaging protocol: Computed tomography of the head without contrast. Radiation optimization: All CT scans at this facility use at least one of these dose optimization techniques: automated exposure control; mA and/or kV adjustment per patient size (includes targeted exams where dose is matched to clinical indication); or iterative reconstruction. COMPARISON: CT head wo con* [id number] 01/26/2021 10:11 AM RADIATION DOSE METRICS: Total DLP (mGy-cm): 2548.73 FINDINGS: Brain: Mild atrophy and mild white matter chronic microvascular changes are noted. No hemorrhage or evidence of acute infarction. Cerebral ventricles: No ventriculomegaly. Paranasal sinuses: Visualized sinuses are unremarkable. No fluid levels. Mastoid air cells: Visualized mastoid air cells are well aerated. Bones/joints: Unremarkable. No acute fracture. Soft tissues: Unremarkable. CT/CT head wo con* [id number] IMPRESSION: No acute intracranial abnormality.
--- NOTE | 2021-06-25 16:58 | CTR_ITS ---
PROCEDURE INFORMATION: Exam: CTA Chest With Contrast Exam date and time: 06/25/2021 5:39 PM Age: 75 years old Clinical indication: Shortness of breath and wheezing; Additional info: SOB, tachycardia, elevated trop and bnp TECHNIQUE: Imaging protocol: Computed tomographic angiography of the chest with contrast. 3D rendering (Not supervised by radiologist): MIP and/or 3D reconstructed images were created by the technologist. Radiation optimization: All CT scans at this facility use at least one of these dose optimization techniques: automated exposure control; mA and/or kV adjustment per patient size (includes targeted exams where dose is matched to clinical indication); or iterative reconstruction. Contrast material: VISI; Contrast volume: 81 ml; Contrast route: INTRAVENOUS (IV); COMPARISON: CT angio chest PE protcl [id number] 04/10/2021 9:37 PM RADIATION DOSE METRICS: Total DLP (mGy-cm): 638.1 FINDINGS: Pulmonary arteries: No filling defects in the pulmonary arteries to suggest pulmonary embolism. Aorta: Mild atherosclerotic changes in the visualized arteries. No evidence for aortic aneurysm or aortic dissection. Lungs: Interval development of mucous plugging in the right lower lobe bronchus extending into multiple segmental and subsegmental bronchi in the right lower lobe. There is also interval development of patchy atelectasis versus pneumonia in the right lower lobe. Redemonstration of multiple noncalcified nodules in the lungs suspicious for metastatic foci. Multiple nodules have increased in size, the largest now measures 2.3 x 2.8 cm, previously measured 1.8 x 1.8 cm (series 3, images 30 and 31). There is also development of 2 new nodules in the right lower lobe (series 3, images images 30 and 39). Increase in size of a right suprahilar mass invading the distal right mainstem bronchus, right upper lobe bronchus, and bronchus intermedius. This now measures 4.2 x 4.3 x 3.7 cm, previously measured 3.3 x 4.5 x 2.8 cm (series 602, image 42 and series 2, image 223). Pleural spaces: No pneumothorax. No pleural effusion. Heart: Mild enlargement of the heart. Moderate atherosclerotic calcification in the coronary arteries. Esophagus: The esophagus is unremarkable. Lymph nodes: No lymphadenopathy. Liver: Multiple calcified granulomas in the liver. Gallbladder and bile ducts: Stable findings consistent with a previous cholecystectomy. Stable dilatation of the biliary ducts, not unexpected in a patient who has had a prior cholecystectomy. Pancreas: The visualized pancreas is unremarkable. No pancreatic ductal dilatation. Spleen: Multiple calcified granulomas in the spleen. Adrenal glands: The right and left adrenal glands are unremarkable. Kidneys and ureters: The visualized right and left kidneys are unremarkable. Bones/joints: Bones are diffusely osteopenic. Degenerative changes in the spine and shoulders. Multiple phvz-nr-[id number] compression deformities in the mid and lower thoracic spine and upper lumbar spine are stable. Stable kyphoplasty procedures at T7, T8, T9, and T11. Soft tissues: No acute abnormality in the extrathoracic soft tissues. CT/CT angio chest PE protcl [id number] IMPRESSION: 1. Interval development of mucous plugging in the right lower lobe bronchus extending into multiple segmental and subsegmental bronchi in the right lower lobe. There is also interval development of patchy atelectasis versus pneumonia in the right lower lobe. Recommend followup chest imaging to insure resolution of these findings. 2. No evidence for pulmonary embolism. 3. Increase in size of a right suprahilar mass invading the distal right mainstem bronchus, right upper lobe bronchus, and bronchus intermedius. 4. Findings concerning for worsening metastatic disease with increase in size of multiple pulmonary nodules and 2 new nodules in the right lower lobe. Fleischner Society follow up recommendations for incidental nodules are not indicated. Follow up per the patient's medical condition. 5. Incidental/nonacute findings are listed in the report.
[2021-06-25 16:59] LABS: Alanine Aminotransferase 17 U/L (0-41); Albumin Level 3.3 g/dL (3.5-5.2); Alkaline Phosphatase 165 IU/L (40-130); Blood Urea Nitrogen 20 mg/dL (8-23); C Reactive Protein 148.3 mg/L (0.0-4.9); Calcium 8.9 mg/dL (8.5-10.5); Carbon Dioxide 26 mmol/L (22-29); Chloride 100 mmol/L (98-107); Globulin 2.8 g/dL (1.3-4.6); Glucose 127 mg/dL (65-115); Osmolality Calculated 294 mOsm/kg (285-295); Sodium 140 mmol/L (136-145); Total Bilirubin 0.5 mg/dL (0.15-1.2); Total Protein 6.1 g/dL (6.6-8.7)
[2021-06-25 17:03] LABS: Anion Gap 18.5 (5-19); Aspartate Amino Transferase 26 U/L (0-40); Potassium 4.5 mmol/L (3.5-5.1)
--- NOTE | 2021-06-25 17:17 | PC.PHAR ---
PT UNABLE TO VERIFY- SON JUAN ANTONIO VERIFIED MEDS USING A LIST FROM PT DOCTOR. HOME HEALTH NURSE AND SON BELIEVE HE IS ONLY TAKING PAIN MEDICATIONS.
--- NOTE | 2021-06-25 17:52 | ECG_ITS ---
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 Measurements Intervals [place] Rate: 132 P: 75 KS: 114 QRS: 78 QRSD: 106 T: 71 QT: 304 QTc: 451 Interpretive Statements SINUS TACHYCARDIA WITH SHORT KS INTERVAL Compared to ECG 06/25/2021 15:52:58 Short [place] interval now present Electronically Signed On 06-26-2021 18:05:27 CDT by Morena Rubio M.D. [id number]
[2021-06-25] MEDS: hydrocortisone 100 mg/2 mL SDV IVP (18:07)
[2021-06-25] MEDS: sodium chloride 0.9% 500 ML 999 ML IV ×2 (18:08→18:51)
[2021-06-25] MEDS: piperacillin-tazobactam 4.5 GM in sodium chloride 0.9% (plus) 50 ML IV (18:50)
[2021-06-25 19:17] LABS: Lactic Sepsis W/Reflex 1.9 mmol/L (0.5-2.2)
[2021-06-25 19:26] LABS: Troponin 5 2HR 183.6 ng/L (0-15)
[2021-06-25 19:27] LABS: Troponin 5 2HR Delta 29.6 ABS# (0-10)
[2021-06-25] MEDS: enoxaparin 60 mg/0.6 mL Syringe SUBCUT (20:05)
[2021-06-25] MEDS: aspirin 81 mg Chew Tablet 324 MG PO (20:05)
--- NOTE | 2021-06-25 20:24 | XRR_ITS ---
PROCEDURE INFORMATION: Exam: XR Abdomen Exam date and time: 06/25/2021 7:59 PM Age: 75 years old Clinical indication: Bloating; Additional info: HX of pneumatosis coli TECHNIQUE: Imaging protocol: XR of the abdomen. Views: Frontal supine view of the abdomen. 1 View. COMPARISON: CR XR abdomen min 2V [id number] 05/23/2021 7:14 AM FINDINGS: Gastrointestinal tract: Several loops of intestine are mildly distended with air. No definite intestinal obstruction. A moderate amount of stool is present in the colon. Bones/joints: Unremarkable. XR/XR KUB portable [id number] IMPRESSION: Mild intestinal flatus and possible constipation. No definite obstruction.
--- NOTE | 2021-06-25 20:33 | P.HP_ITS ---
Providers/Chief Complaint Primary Care Provider: Tamika Chavis MD Chief Complaint: SOB/WHEEZING History of Present Illness Oswaldo Khan is a 75 year old male with a past medical history of invasive adenocarcinoma of the upper rectum, status post chemotherapy, with evidence of pulmonary nodules consistent with metastatic disease, multiple hypermetabolic mediastinal lymph nodes consistent with metastatic disease status post chem otherapy, however review of notes show mixed response, last palliative chemotherapy in early December 2020, since then due to declining performance status and chronic back pain and compression fractures and kyphoplasty, chemotherapy was on hold, there was discussions of hospice, but lost to follow- up, recent history of pneumatosis Coli underwent exploratory laparotomy for small bowel mass, positive for small bowel adenocarcinoma, secondary primary cancer, history of bilateral subsegmental pulmonary emboli on Eliquis, pulmonary sarcoidosis, deconditioning, protein calorie malnutrition, history of adrenal insufficiency on chronic steroids, history of vertebral compression fractures, history of diastolic CHF, who presents to [facility] due to altered mental status, and shortness of breath. Currently patient is alert to person, not to place, not to time. Currently on BiPAP. He is quite hard of hearing, does not follow commands, is confused. The only history that I was able to obtain for patient is that he has been feeling weak, he tells me his legs feel weak, does report chest pain, does report shortness of breath, does report a cough, denies fevers. In the emergency room patient was found to have positive troponins, positive delta, EKG no acute ST-T wave changes, was given Lovenox, was also found to have postobstructive pneumonia, placed on BiPAP, even Zosyn, also given his history of adrenal insufficiency, and low blood pressures, he was given hydrocortisone loading dose. During my examination, blood pressures are in the 100s over 60s, heart rates in the 110s, sinus tachycardia, on 40% BiPAP, no evidence of respiratory distress Review of Systems General: Reports: ROS unobtainable due to mental status Medications/Allergies Home Medications Medication Instructions Recorded Confirmed Last Taken Type capecitabine 500 mg tablet (Xeloda) See Rx Instructions .ROUTE .COMPLEX 01/26/21 06/25/21 Unknown History prednisone 20 mg tablet 20 mg PO DAILY 01/26/21 06/25/21 03/06/21 History docusate sodium 100 mg capsule 100 mg PO BEDTIME PRN 03/14/21 06/25/21 03/13/21 History (Stool Softener) tiotropium bromide 1.25 1 puff INHALATION DAILY 03/14/21 06/25/21 Unknown History mcg/actuation mist for inhalation (Spiriva Respimat) miscellaneous medical supply #1 ea 03/19/21 06/25/21 Unknown Rx magnesium hydroxide 400 mg/5 mL 30 ml PO BID PRN #400 ml 03/27/21 06/25/21 Unknown Rx oral suspension (Milk of Magnesia) pantoprazole 40 mg tablet,delayed 40 mg PO DAILY #30 tab 04/30/21 06/25/21 Unknown Rx release (Protonix) hydrocodone 5 mg-acetaminophen 325 1 tab PO Q6H PRN #15 tab 05/07/21 06/25/21 Unknown Rx mg tablet megestrol 20 mg tablet 20 mg PO BID #60 tab 05/07/21 06/25/21 Unknown Rx ondansetron 4 mg disintegrating 4 mg PO TID PRN #15 tab 05/07/21 06/25/21 Unknown Rx tablet albuterol sulfate 90 mcg/actuation 2 puff INHALATION Q6H PRN 05/13/21 06/25/21 Unknown History aerosol inhaler mirtazapine 15 mg disintegrating 15 mg PO BEDTIME 05/13/21 06/25/21 Unknown History tablet tamsulosin 0.4 mg capsule 0.4 mg PO BEDTIME 05/13/21 06/25/21 Unknown History tiotropium 2.5 mcg-olodaterol 2.5 2 puff INHALATION DAILY 05/13/21 06/25/21 Unknown History mcg/actuation mist for inhalation (Stiolto Respimat) lactulose 10 gram oral packet 10 g PO DAILY PRN #15 ea 05/29/21 06/25/21 Unknown Rx magnesium 200 mg tablet 200 mg PO DAILY #20 tab 05/29/21 06/25/21 Unknown Rx sennosides 8.6 mg-docusate sodium 1 tab-cap PO DAILY #60 tab 05/29/21 06/25/21 Unknown Rx 50 mg tablet (Senna-S) oxycodone 5 mg capsule 5 mg PO Q6H PRN 7 Days #40 cap 06/18/21 06/25/21 Unknown Rx duloxetine 20 mg capsule,delayed 20 mg PO DAILY 06/25/21 06/25/21 Unknown History release lisinopril 40 mg tablet 40 mg PO DAILY 06/25/21 06/25/21 Unknown History magnesium oxide,aspartate,citr 400 mg PO DAILY 06/25/21 06/25/21 Unknown History (Triple Magnesium Complex) Allergies Allergy/AdvReac Type Severity Reaction Status Date / Time No Known Allergies Allergy Verified 06/18/21 14:45 PFSH Acute PFSH: Medical History (Updated 06/25/21 @ 20:51 by Patricio Carbajal MD) Acid reflux Adrenal insufficiency Anxiety about health Aspiration pneumonia BPH loc w urin obs/LUTS Chronic use of steroids Compression fracture of T11 vertebra Compression fx, thoracic spine Constipation, slow transit COPD (chronic obstructive pulmonary disease) Elevated PSA Essential (primary) hypertension Fracture, thoracic vertebra, compression H/O colon cancer, stage III Lumbar compression fracture Lung cancer Mediastinal lymphadenopathy Nocturia Prostate CA Rectal cancer Sarcoidosis Shock Small bowel obstruction Urinary retention Urinary urgency Surgical History History of liver biopsy / Percutaneous abscess drainage Port-A-Cath in place S/P colon resection 2015 ([place]) -- sigmoid resection for colon cancer / cholecystectomy / incidental appendectomy / umbilical hernia repair S/P small bowel resection (05/18/21) For small bowel obstruction Family History Mother , 62 CAD (coronary artery disease) Diabetes Father , 74 Cancer Colon Social History Smoking and tobacco status: current every day smoker cigarettes Packs smoked per day: 1 Years cigarettes smoked: 45 [ Other cigarette details: currently down to half pack or so] Quit status (tobacco): has tried quititng Second hand smoke exposure: Yes Smoking risk assessment/counseling performed?: No Alcohol intake: never Desire information about alcohol rehabilitation?: No Counseling given: No Desire information about substance/drug rehabilitation?: No Counseling given: No Adopted: No Caregiver/support person: No Lives independently: Yes Household members: none Housing: House Marital status: Current occupational status: retired History of recent travel: No Current gender identity: Male Vitals/I&O/Wt Last Vital Signs Temp 96.5 F L 06/25/21 15:47 Pulse 118 H 06/25/21 20:21 Resp 18 06/25/21 20:21 BP 100/65 06/25/21 20:21 Pulse Ox 96 06/25/21 20:21 06/25/21 06/25/21 06/25/21 06:59 14:59 22:59 Intake Total 500 / 500 Balance 500 / 500 Weight last 48 hrs Weight 59.874 kg Physical Exam Const: COMMON NORMALS: no acute distress EXAM LIMITATIONS: altered mental status HENMT: COMMON NORMALS: normocephalic HEAD & SCALP: normocephalic Neck/C-Spine: COMMON NORMALS: no JVD Lymph: LYMPHATIC: no lymphadenopathy noted Resp: COMMON NORMALS: normal respiratory effort, No retractions and No use of accessory muscles AUSCULTATION: crackles Cardio: COMMON NORMALS: no JVD, regular rhythm, S1 normal heart sound present and S2 normal heart sound present RATE: tachycardic RHYTHM: regular rhythm HEART SOUNDS: S1 normal heart sound present and S2 normal heart sound present GI: INSPECTION: Yes normal to inspection AUSCULTATION: Yes Hypoactive bowel sounds present PALPATION: Yes Tenderness to palpation present (GI) (Diffuse tenderness ), No Guarding due to palpation present (GI) and No Rigid due to palpation OTHER: Surgical site looks clean and dry Extremity: NARRATIVE EXTREMITY EXAM: 1+ pitting edema Neuro: COMMON NORMALS: moves all extremities SENSORIUM/ORIENTATION: Yes alert, Yes oriented to person, No oriented to place and No oriented to time Data : 06/25/21 16:00 06/25/21 16:00 Micro: Microbiology 06/25/21 19:05 Blood Culture - Preliminary Blood SPECIMEN COLLECTED 06/25/21 19:07 Blood Culture - Preliminary Blood SPECIMEN COLLECTED A&P Assessment and plan (1) Acute on chronic respiratory failure with hypoxia and hypercapnia: Status: Acute (2) Acute on chronic congestive heart failure: Status: Acute (3) Pneumonia: Status: Acute (4) Sepsis: Status: Acute (5) Acute non-ST elevation myocardial infarction (NSTEMI): Status: Acute (6) COPD (chronic obstructive pulmonary disease): Status: Acute Qualifiers: COPD type: unspecified COPD Qualified Code(s): J44.9 - Chronic obstructive pulmonary disease, unspecified (7) H/O colon cancer, stage III: Status: Acute (8) Adrenal insufficiency: Status: Acute Plan Oswaldo Khan is a 75 year old male with a past medical history of invasive adenocarcinoma of the upper rectum, status post chemotherapy, with evidence of pulmonary nodules consistent with metastatic disease, multiple hypermetabolic mediastinal lymph nodes consistent with metastatic disease status post chemotherapy, however review of notes show mixed response, last palliative chemotherapy in early December 2020, since then due to declining performance status and chronic back pain and compression fractures and kyphoplasty, chemotherapy was on hold, there was discussions of hospice, but lost to follow- up, recent history of pneumatosis Coli underwent exploratory laparotomy for small bowel mass, positive for small bowel adenocarcinoma, secondary primary cancer, history of bilateral subsegmental pulmonary emboli on Eliquis, pulmonary sarcoidosis, deconditioning, protein calorie malnutrition, history of adrenal insufficiency on chronic steroids, history of vertebral compression fractures, history of diastolic CHF, who presents to [facility] due to altered mental status, and shortness of breath. Acute hypoxic respiratory failure -Likely multifactorial from aspiration, aspiration pneumonia, fluid overload -History of pulmonary embolism, on Eliquis -History of diastolic CHF -History of metastatic pulmonary nodules, from colon cancer -History of Pseudomonas positive sputum cultures -Elevated BNP -CT of the chest 1. Interval development of mucous plugging in the right lower lobe bronchus extending into multiple segmental and subsegmental bronchi in the right lower lobe. There is also interval development of patchy atelectasis versus pneumonia in the right lower lobe. Recommend followup chest imaging to insure resolution of these findings. 2. No evidence for pulmonary embolism. 3. Increase in size of a right suprahilar mass invading the distal right mainstem bronchus, right upper lobe bronchus, and bronchus intermedius. 4. Findings concerning for worsening metastatic disease with increase in size of multiple pulmonary nodules and 2 new nodules in the right lower lobe. Fleischner Society follow up recommendations for incidental nodules are not indicated. Follow up per the patient's medical condition. 5. Incidental/nonacute findings are listed in the report. Plan: -We will admit patient to the intensive care unit -Monitor respiratory status closely -Continue BiPAP -Start vancomycin, double coverage for Pseudomonas, vancomycin, Levaquin -Follow blood cultures, sputum cultures, MRSA nares -Has received fluid boluses, will consider to give Lasix based on clinical progress -Midodrine 10 every 8 hours -We will consider albumin, albumin 3.2 -Full code -Lovenox for DVT prophylaxis -Protonix for GI prophylaxis Sepsis with hypotension and altered mental status and respiratory failure -Secondary from aspiration pneumonia -As above Acute encephalopathy -Secondary to as above -Aspiration precautions, neurochecks NSTEMI -Positive troponins, positive delta troponin -EKG no acute ST-T wave changes -Trend troponins, monitor for chest pain -Continue therapeutic Lovenox -Aspirin, statin -Order cardiac echocardiogram History of pulmonary emboli, hold Eliquis, continue therapeutic Lovenox History of adenocarcinoma the upper rectum, with metastasis to the lung, last palliative chemotherapy was in December 2020, there was discussions on hospice, lost to follow-up Recent hospitalization for small bowel adenocarcinoma, secondary primary cancer, History of adrenal insufficiency, received stress dose steroids, continue stress dose steroids History of vertebral fractures, History of diastolic CHF Attestations Medical Necessity Statement*: Patient requires hospitalization, inpatient, greater than 2 midnights, for acute hypoxic respiratory failure secondary to aspiration pneumonia, postobstructive pneumonia, NSTEMI, requires ICU admission Critical Care Time: 35 Coding Level of Care Code Acute [facility] Level[facility] for [facility] Fwd Diagnoses Acute on chronic respiratory failure with hypoxia and hypercapnia J96.21; J96.22 Acute on chronic congestive heart failure I50.9 Pneumonia J18.9 Sepsis A41.9 Acute non-ST elevation myocardial infarction (NSTEMI) I21.4 COPD (chronic obstructive pulmonary disease) J44.9 COPD type: unspecified COPD H/O colon cancer, stage III Z85.038 Adrenal insufficiency E27.40 Sepsis Event Note Evaluation Current stage of sepsis: sepsis Initial hypotension due to sepsis/infection: SBP < 90 mmHg Possible source: pulmonary Focused Exam Vital Signs Temp Pulse Resp BP Pulse Ox 06/25/21 20:21 118 H 18 100/65 96 06/25/21 19:00 126 H 19 H 99/69 98 06/25/21 18:15 131 H 19 H 105/86 94 06/25/21 18:00 130 H 23 H 96/65 95 06/25/21 17:27 117 H 18 72/52 06/25/21 16:57 128 H 30 H 06/25/21 16:21 135 H 94 06/25/21 16:08 124 H 28 H 94 06/25/21 15:57 132 H 28 H 89/73 95 06/25/21 15:47 96.5 F L 138 H 29 H 89/73 97 Respiratory exam: Present rales and wheezes Cardiovascular exam: Present tachycardia Date exam was performed: 06/25/21 Time exam was performed: 20:48 Problem List (1) Acute on chronic respiratory failure with hypoxia and hypercapnia: Status: Acute (2) Acute on chronic congestive heart failure: Status: Acute (3) Pneumonia: Status: Acute (4) Sepsis: Status: Acute (5) Acute non-ST elevation myocardial infarction (NSTEMI): Status: Acute (6) COPD (chronic obstructive pulmonary disease): Status: Acute (7) H/O colon cancer, stage III: Status: Acute (8) Adrenal insufficiency: Status: Acute
[2021-06-25 20:55] LABS: Thyroid Stimulating Hormone 0.93 uIU/mL (0.27-4.20)
[2021-06-25 21:14] LABS: Adenovirus Not Detected (NOT DETECT); Chlamydia Pneumoniae Not Detected (NOT DETECT); Coronavirus 229E,HKU1,NL63,OC4 Not Detected (NOT DETECT); Human Metapneumovirus Not Detected (NOT DETECT); Human Rhinovirus/Enterovirus Not Detected (NOT DETECT); Influenza A Not Detected (NOT DETECT); Influenza A H1 Not Detected (NOT DETECT); Influenza A H1-2009 Not Detected (NOT DETECT); Influenza A H3 Not Detected (NOT DETECT); Influenza B Not Detected (NOT DETECT); Mycoplasma Pneumoniae Not Detected (NOT DETECT); Parainfluenza Virus Type 1 Not Detected (NOT DETECT); Parainfluenza Virus Type 2 Not Detected (NOT DETECT); Parainfluenza Virus Type 3 Not Detected (NOT DETECT); Parainfluenza Virus Type 4 Not Detected (NOT DETECT); Respiratory Syncytial Virus A Not Detected (NOT DETECT); Respiratory Syncytial Virus B Not Detected (NOT DETECT); SARS-COV-2 Not Detected (NOT DETECT)
[2021-06-25 21:17] LABS: D Dimer 1.06 ug/mIFEU (0-0.59)
--- NOTE | 2021-06-25 21:52 | ECG_ITS ---
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 Measurements Intervals [place] Rate: 118 P: 79 NJ: 118 QRS: 77 QRSD: 77 T: 70 QT: 310 QTc: 436 Interpretive Statements SINUS TACHYCARDIA WITH SHORT NJ INTERVAL LOW QRS VOLTAGE IN PRECORDIAL LEADS [QRS DEFLECTION < 1.0 mV IN CHEST LEADS] ABNORMAL RHYTHM ECG Compared to ECG 06/25/2021 18:50:17 Low QRS voltage now present Electronically Signed On 06-26-2021 19:27:25 CDT by Sascha Parekh M.D. [id number]
[2021-06-25] MEDS: midazolam 1 mg/mL INJ 2 mL 2 MG IVP (22:14)
[2021-06-25] MEDS: fentaNYL 50 mcg/mL INJ 2mL 25 MCG IVP (22:14)
--- NOTE | 2021-06-25 22:34 | XRR_ITS ---
PROCEDURE INFORMATION: Exam: XR Chest Exam date and time: 06/25/2021 9:40 PM Age: 75 years old Clinical indication: Shortness of breath; Patient HX: Check S/P RT central line placement TECHNIQUE: Imaging protocol: XR of the chest. Views: 1 view. COMPARISON: CR XR chest 1V portable [id number] 06/25/2021 3:05 PM XR/XR chest 1V portable [id number] IMPRESSION: A right IJ central venous catheter has been placed which terminates in the SVC. No other significant change compared to the prior exam. No pneumothorax is visualized.
--- NOTE | 2021-06-25 23:09 | USR_ITS ---
PROCEDURE INFORMATION: Exam: US Duplex Lower Extremity Veins, Bilateral Exam date and time: 06/26/2021 12:00 AM Age: 75 years old Clinical indication: Swelling (edema) of limb; Lower extremity, bilateral; Additional info: Dvt TECHNIQUE: Imaging protocol: Real-time Duplex ultrasound of the bilateral extremities with 2-D cantu scale, color Doppler flow and spectral waveform analysis with image documentation. Complete exam focused on the bilateral lower extremity veins. COMPARISON: CT abdomen pelvis wo con [id number] 06/25/2021 11:40 PM FINDINGS: Right deep veins: Unremarkable. The common femoral, femoral, proximal profunda femoral and posterior tibial veins are patent without thrombus. No images of the popliteal or anterior tibial veins. Normal Doppler waveforms. Normal compressibility and/or augmentation response. Right superficial veins: Saphenofemoral junction is patent without thrombus. Left deep veins: Unremarkable. The common femoral, femoral, proximal profunda femoral and posterior tibial veins are patent without thrombus. No images of the popliteal or anterior tibial veins. Normal Doppler waveforms. Normal compressibility and/or augmentation response. Left superficial veins: Saphenofemoral junction is patent without thrombus. Soft tissues: Mild edema is seen in bilateral thighs. US/[place] [id number] IMPRESSION: No DVT is seen on the images provided. Mild bilateral lower extremity edema.
--- NOTE | 2021-06-25 23:09 | CTR_ITS ---
PROCEDURE INFORMATION: Exam: CT Abdomen And Pelvis Without Contrast Exam date and time: 06/25/2021 11:40 PM Age: 75 years old Clinical indication: Prior surgery; Surgery type: Small and large bowel resection. ; Patient HX: History of pneumotosis coli and sbo. History of stage 3 colon cancer. ; Additional info: HX of sbo, pneumtosis coli TECHNIQUE: Imaging protocol: Computed tomography of the abdomen and pelvis without contrast. Radiation optimization: All CT scans at this facility use at least one of these dose optimization techniques: automated exposure control; mA and/or kV adjustment per patient size (includes targeted exams where dose is matched to clinical indication); or iterative reconstruction. COMPARISON: 05/17/2021 CT scan of the abdomen and pelvis and 06/25/2021 CT angiogram of the chest RADIATION DOSE METRICS: Total DLP (mGy-cm): 708.36 FINDINGS: Liver: Normal. No mass. Gallbladder and bile ducts: The gallbladder has been removed. No biliary ductal dilatation. Pancreas: Normal. No ductal dilation. Spleen: Normal. No splenomegaly. Adrenal glands: Normal. No mass. Kidneys and ureters: Bilateral renal corticomedullary phase type enhancement raises the possibility of contrast nephropathy. No hydronephrosis. Stomach and bowel: Prior surgical changes are seen in the small bowel in the left lower quadrant in the distal colon. No intestinal obstruction. Mild gaseous distention of several loops of small and large bowel is appreciated. Appendix: No evidence of appendicitis. Intraperitoneal space: Unremarkable. No free air. No significant fluid collection. Vasculature: Atherosclerotic changes are present in the abdominal aorta and iliac arteries. Mild ectasia of the infrarenal abdominal aorta is noted measuring up to 2.8 cm. Lymph nodes: Unremarkable. No enlarged lymph nodes. Urinary bladder: Unremarkable as visualized. Reproductive: The prostate gland is mildly enlarged. Bones/joints: [id number] chronic compression deformities are seen at multiple levels in the lumbar spine. T10 vertebroplasty changes are noted. No acute fracture is detected. Soft tissues: Small foci of subcutaneous air in the left periumbilical soft tissues is likely an injection site. CT/CT abdomen pelvis wo con [id number] IMPRESSION: 1. No acute abnormality is seen in the abdomen or pelvis. No intestinal obstruction. 2. Possible contrast nephropathy. 3. Prostatomegaly. 4. Atherosclerosis and mild ectasia of the infrarenal abdominal aorta.
--- NOTE | 2021-06-25 23:56 | PC.PHAR ---
Pharmacokinetic dosing service Date: 06/25/21 Time: 2354 Objective: Patient: Oswaldo Khan Floor: ICU-3 Age: 75 yo Serum creatinine: 0.9 mg/dL Height: 69.0 Inches Weight (kg): 59.874 Diagnosis: Relevant medical/social history: Cultures and sensitivities: Other labs: Assessment: IBW (kg): 70.70 Dosing wt(kg): 59.874 Estimated Creatinine clearance (ml/min): 61.9 CRCL method: Cockcroft and Gault using ibw(default). Drug selected: Vancomycin Loading dose (mg): 0 Vd (liters): 53.9 (factor used: 0.9 L/kg) Carlos (hr-1): 0.056 Half life (hrs): 12.38 Recommended dose: 750 mg Interval: 12 hrs Infusion time (hrs): 1.5 Predicted peak (mcg/mL): 27.3 Predicted trough (mcg/mL): 15.16 Total body weight is being used for vancomycin dosing. Renal function is stable [ ] /unstable [ ] Recommendations: Give Vancomycin 750 mg q 12 hrs with an expected Cpeak of 27.3 mcg/ml and an expected Ctrough of 15.16 mcg/ml Renal dosing of other antibiotics (review renal dosing of other medications and list guidelines here): Thank you for the consult, will continue to follow. Signature: Velia Gil [facility]
[2021-06-26] VITALS (64 sets, daily range): BP systolic 81–153; BP diastolic 50–89; PULSE 98–132; RESP 16–28; TEMP 35.9–37; O2SAT 83–98; BMI 22.6
--- NOTE | 2021-06-26 | USCV_ITS ---
Transthoracic Echo Oswaldo Khan Age: 75 Gender: M : 1945 Exam Date: 06/26/2021 01:08 Ordering Phys: Patricio Carbajal MD Technologist: CKLeonie Exam Location: [facility] [place] Indication: sob BP: 130 / 87 HR: 112 Rhythm: Sinus Technical Quality: Adequate MEASUREMENTS (Male / Female) Normal Values 2D ECHO LV Diastolic Diameter PLAX 3.3 cm 4.2 - 5.9 / 3.9 - 5.3 cm LV Systolic Diameter PLAX 2.0 cm IVS Diastolic Thickness 0.9 cm 0.6 - 1.0 / 0.6 - 0.9 cm IVS Systolic Thickness 1.5 cm LVPW Diastolic Thickness 1.3 cm 0.6 - 1.0 / 0.6 - 0.9 cm LVPW Systolic Thickness 2.2 cm LVOT Diameter 2.0 cm LV Ejection Fraction 2D Teich 68.5 % LV Ejection Fraction MOD 2C 57.8 % LV Ejection Fraction 2C AL 57.4 % LA Diameter 2.8 cm Aorta at Sinotubular Diameter 2.0 cm FINDINGS Left Ventricle Possibly normal LV size and ejection fraction. Could not evaluate for any segmental wall motion normalities since could not obtain new apical or parasternal views Right Ventricle Right ventricle not well visualized. Right Atrium Right atrium not well visualized. Left Atrium Left atrium not well visualized. Mitral Valve No gross abnormalities noted Aortic Valve No gross abnormalities noted Tricuspid Valve Tricuspid valve not well visualized. Pulmonic Valve Pulmonic valve not well visualized. Pericardium No pericardial effusion. Aorta Normal aortic annulus size. CONCLUSIONS Possibly normal LV size and ejection fraction . Could not evaluate for any segmental wall motion normalities, since we could not obtain parasternal or apical views There is no pericardial effusion. No gross abnormalities of the aortic arch mitral valve leaflets Technically very limited study Dr Sascha Parekh MD FACC (Electronically Signed) Final Date: 26 June 2021 17:52 S
[2021-06-26] MEDS: levofloxacin-dextrose 5 % 750 MG/150 ML PREMIX 100 MG IV ×2 (00:37→23:49)
[2021-06-26] MEDS: magnesium sulfate premix 4 GM/100 ML PREMIX IV (00:43)
[2021-06-26] MEDS: pantoprazole 40 mg SDV IVP ×2 (00:48→10:40)
[2021-06-26] MEDS: midodrine 5 mg TABLET 10 MG PO ×3 (00:55→15:01)
[2021-06-26] MEDS: aspirin 81 mg EC Tablet PO ×2 (00:55→08:04)
[2021-06-26] MEDS: vancomycin 750 MG in sodium chloride 0.9% 250 ML 250 MG IV ×2 (00:56→12:20)
[2021-06-26] MEDS: atorvastatin 40 mg Tablet PO ×2 (00:56→20:37)
[2021-06-26] MEDS: piperacillin-tazobactam 3.375 GM in sodium chloride 0.9% (plus) 50 ML IV ×2 (02:41→10:39)
[2021-06-26 05:27] LABS: ABG PCO2 40.9 mmHg (35-45); ABG PH Result 7.44 (7.35-7.45); Arterial Blood Gas Hematocrit 30.2 % (42-52); Base Excess ABG 3.4 mmol/L (-2.0-2.0); Blood Gas Allen Test Pos; Blood Gas Operator Identificat JB; Blood Gas Sample Site Radial, left; Blood Gas Sample Type Arterial; HCO3 ABG 27.8 mmol/L (22-26); Oxygen Device BIPAP; PO2 ABG 68.1 mmHg (80.0-100.0)
[2021-06-26 05:52] LABS: Basophils % 0.2 %; Hematocrit 29.6 % (42.0-52.0); Hemoglobin 9.4 g/dL (11.7-16.6); Lymphocytes # 1.4 10^3/uL (0.8-4.8); Lymphocytes % 15.9 %; Mean Corpuscular HGB Conc 31.8 g/dL (30.0-36.0); Mean Corpuscular Hemoglobin 28.7 pg (28.0-34.0); Mean Corpuscular Volume 90.5 fl (80-94); Mean Platelet Volume 9.3 fL (7.4-10.4); Monocytes # 0.6 10^3/uL (0.2-0.9); Monocytes % 6.7 %; Neutrophils # 6.82 10^3/uL (1.8-7.7); Neutrophils % 76.9 %; Nucleated Red Blood Cells % 0 %; Platelet Count 275 10^3/cmm (130-400); Red Blood Count 3.27 10^6/uL (4.1-5.3); Red Cell Distribution Width 18.5 % (12.1-15.1); White Blood Count 8.9 10^3/uL (4.0-10.0)
[2021-06-26 06:02] LABS: INR 1.14 (0.8-1.2)
[2021-06-26 06:07] LABS: Estmated Average Glucose 97; Lactate (Lactic Acid level) 0.9 mmol/L (0.5-2.2)
[2021-06-26 06:09] LABS: Troponin T (5th) Once 126 ng/L (0-15)
[2021-06-26] MEDS: FUROsemide 10 mg/mL SDV 10mL 60 MG IVP (06:17)
[2021-06-26 06:20] LABS: NT Pro B Type Natriuretic Pept 5013 pg/mL (0-125); Procalcitonin 0.11 ng/mL (0-0.5)
[2021-06-26 06:31] LABS: Alanine Aminotransferase 11 U/L (0-41); Albumin Level 2.8 g/dL (3.5-5.2); Alkaline Phosphatase 145 IU/L (40-130); Anion Gap 15.4 (5-19); Aspartate Amino Transferase 18 U/L (0-40); Blood Urea Nitrogen 21 mg/dL (8-23); C Reactive Protein 137.9 mg/L (0.0-4.9); Calcium 8.5 mg/dL (8.5-10.5); Carbon Dioxide 26 mmol/L (22-29); Chloride 103 mmol/L (98-107); Chol HDL Ratio 2.62 mg/dL (1.0-5.00); Cholesterol 110 mg/dL (0-200); Globulin 2.7 g/dL (1.3-4.6); Glucose 94 mg/dL (65-115); HDL Cholesterol 42 mg/dL (60-100); LDL Cholesterol Calculated 52 mg/dL (50-129); LDL HDL Ratio 1.24 RATIO (0.00-3.22); Osmolality Calculated 293 mOsm/kg (285-295); Potassium 4.4 mmol/L (3.5-5.1); Sodium 140 mmol/L (136-145); Total Bilirubin 0.3 mg/dL (0.15-1.2); Total Protein 5.5 g/dL (6.6-8.7); Triglycerides 81 mg/dL (0-150)
[2021-06-26] MEDS: budesonide 0.5 mg/2 mL Neb INHALATION ×2 (07:43→20:07)
[2021-06-26] MEDS: ipratropium-albuterol 3 mL Neb INHALATION ×4 (07:43→20:07)
[2021-06-26] MEDS: hydrocortisone 100 mg/2 mL SDV 50 MG IVP ×2 (08:07→20:37)
[2021-06-26] MEDS: enoxaparin 60 mg/0.6 mL Syringe SUBCUT ×2 (08:08→20:36)
--- NOTE | 2021-06-26 10:45 | PC.CHAP ---
Pastoral Care Encounter/Spiritual Assessment Type of Contact [] Declined hospital staff pharmacist visit [] Patient/Family/Request visit [] Outpatient visit [] Follow-up visit [] Physician referral [] Code/Alert [x] Routine visit [] Staff referral [] Actively dying [x] Patient sleeping [] Family support [] [] Out of room [] Palliative care [] [] Receiving care in room [] Pre-surgical visit [] Trauma [] Long length of stay [x] ICU visit [] Other: Relational/Emotional Strength [] Patient feels connected with others/family/visitors/staff [] Distress [] Loneliness/isolation [] Abandonment Spirituality of Patient [] Person of [place] [] Attends Catholic of their [place] [] Believes in Prayer [] Reads Bible or Hinduism materials [] There are Spiritual issues to be addressed 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] Prayer [] Active listening [] Non-anxious presence [] Spiritual/emotional support [] Crisis/trauma care [] Spiritual counseling [] Bereavement support [] Provided bereavement packet [] Provided Bible/devotional materials [] Provided toy/stuffed animal, coloring book to patient or family member [] Provided Communion [] Anointing/[place] [] Salvation [x] Completed spiritual assessment [] Other: Impact on Illness or Injury [] Angry [] Fearful [] Anxious [] Often cries [] Exhaustion [] Unable to work [] Unable to attend pentecostal [] Unable to walk/stand [] Unable to read [] Unable to drive [] Unable to eat/drink [] Unable to sleep [] Unable to be with family [] Patient intubated [] Other: Summary Time spent with patient
--- NOTE | 2021-06-26 11:18 | P.PN_ITS ---
Subjective Subjective: Patient was seen and examined this morning, denies any shortness of breath, fever cough chest pain nausea vomiting, Currently he is alert awake oriented x3, saturating well on 3 L oxygen, maintaining a decent MAP. His other vitals labs and ABG have been reviewed. Given the fact that he is clinically very stable, and currently is requiring minimal supplemental oxygen, and denies any other respiratory symptoms, will narrow antibiotic coverage to levofloxacin IV. Will discontinue Vanco and Zosyn. Medications: Medication Review Details: Generic Name Dose Route Start Last Admin Trade Name Freq PRN Reason Stop Dose Admin Albuterol/Ipratrop ium 3 ml 06/26/21 08:00 06/26/21 11:24 Ipratropium-Albu terol 3 Ml Neb INHALATION 3 ml QID.RESPIRATORY S CH Administration Aspirin 81 mg 06/25/21 23:09 06/26/21 08:04 Aspirin 81 Mg Ec Tablet PO 81 mg DAILY MARTÍNEZ Administration Atorvastatin Calci um 40 mg 06/25/21 23:09 06/26/21 00:56 Atorvastatin 40 Mg Tablet PO 40 mg BEDTIME MARTÍNEZ Administration Budesonide 0.5 mg 06/25/21 23:09 06/26/21 07:43 Budesonide 0.5 M g/2 Ml Neb INHALATION 0.5 mg BID.RESPIRATORY S CH Administration Enoxaparin Sodium 60 mg 06/26/21 08:00 06/26/21 08:08 Enoxaparin 60 Mg /0.6 Ml Syringe SUBCUT 60 mg Q12H MARTÍNEZ Administration Hydrocortisone Sod ium Succinate 50 mg 06/26/21 08:00 06/26/21 08:07 Hydrocortisone 1 00 Mg/2 Ml Sdv IVP 50 mg Q12H MARTÍNEZ Administration Piperacillin Sod/T azobactam 50 mls @ 12.5 mls /hr 06/26/21 03:00 06/26/21 10:39 Sod 3.375 gm/ So dium Chloride IV 12.5 mls/hr Q8H MARTÍNEZ Administration Protocol Levofloxacin/Dextr ose 750 mg in 150 mls @ 100 mls/hr 06/25/21 23:30 06/26/21 02:17 Levaquin-D5w IV Infused Q24H MARTÍNEZ Infusion Protocol Norepinephrine Bit artrate 4 mg 254 mls @ 0 mls/h r 06/25/21 23:09 06/26/21 06:22 / Dextrose IV 0 mcg/min .Q0M MARTÍNEZ 0 mls/hr Titration Protocol Per Protocol Vancomycin HCl 750 mg/ Sodium 250 mls @ 250 mls /hr 06/26/21 00:00 06/26/21 13:26 Chloride IV Infused Q12H MARTÍNEZ Infusion Midodrine 10 mg 06/25/21 23:30 06/26/21 08:04 Midodrine 5 Mg T ablet PO 10 mg Q8H MARTÍNEZ Administration Pantoprazole Sodiu m 40 mg 06/25/21 23:09 06/26/21 10:40 Pantoprazole 40 Mg Sdv IVP 40 mg Q12H MARTÍNEZ Administration Vitals/I&O/Wt Last Vital Signs Temp 98.4 F 06/26/21 08:00 Pulse 98 06/26/21 08:00 Resp 20 H 06/26/21 07:45 BP 115/79 06/26/21 08:00 Pulse Ox 95 06/26/21 08:00 06/25/21 06/26/21 06/26/21 22:59 06:59 14:59 Intake Total 500 / 500 1079.845 / 1579.845 670 / 670 Output Total 300 / 300 850 / 850 Balance 500 / 500 779.845 / 1279.845 -180 / -180 Weight last 48 hrs Weight 65.499 kg Weight 59.874 kg Physical Exam Const: COMMON NORMALS: patient oriented x3 HENMT: COMMON NORMALS: normocephalic and atraumatic HEAD & SCALP: n ormocephalic and atraumatic Eye: GENERAL EYE: appearance normal, both eyes and all related structures Chest: COMMONS NORMALS: normal inspection of the chest and normal palpation of entire chest wall CHEST: Yes Symmetrical chest wall rise Resp: COMMON NORMALS: normal respiratory effort and No retractions EFFORT & INSPECTION: Yes symmetric chest movement OTHER: Diminished air entry bilaterally in both the lungs failed predominantly in the right lung base. Cardio: COMMON NORMALS: regular rate, regular rhythm, S1 normal heart sound present, S2 normal heart sound present, No gallops present (Cardio), No murmurs present (Cardio), No rub (Cardio) and Peripheral pulses 2+ throughout RATE: regular rate RHYTHM: regular rhythm HEART SOUNDS: S1 normal heart sound present and S2 normal heart sound present PERIPHERAL PULSES: Peripheral pulses 2+ throughout GI: COMMON NORMALS: Normal to inspection, nondistended, normoactive bowel sounds present, Soft to palpation, non-tender, No hepatosplenomegaly present and no masses AUSCULTATION: Yes normoactive bowel sounds PALPATION: Yes Soft to palpation and Yes No hepatosplenomegaly present RECTAL EXAM: Yes deferred Extremity: COMMON NORMALS: no clubbing, cyanosis or edema and no pedal edema Neuro: COMMON NORMALS: patient oriented x3 Data : 06/26/21 05:42 06/26/21 05:42 Micro: Microbiology 06/25/21 19:05 Blood Culture - Preliminary Blood SPECIMEN COLLECTED 06/25/21 19:07 Blood Culture - Preliminary Blood SPECIMEN COLLECTED A&P Assessment and plan (1) Acute on chronic respiratory failure with hypoxia and hypercapnia: Status: Acute (2) Acute on chronic congestive heart failure: Status: Acute (3) Pneumonia: Status: Acute (4) Sepsis: Status: Acute (5) Acute non-ST elevation myocardial infarction (NSTEMI): Status: Acute (6) COPD (chronic obstructive pulmonary disease): Status: Acute Qualifiers: COPD type: unspecified COPD Qualified Code(s): J44.9 - Chronic obstruct melva pulmonary disease, unspecified (7) H/O colon cancer, stage III: Status: Acute (8) Adrenal insufficiency: Status: Acute Plan Oswaldo Khan is a 75 year old male with a past medical history of invasive adenocarcinoma of the upper rectum, status post chemotherapy, with evidence of pulmonary nodules consistent with metastatic disease, multiple hypermetabolic mediastinal lymph nodes consistent with metastatic disease status post chemotherapy, however review of notes show mixed response, last palliative chemotherapy in early December 2020, since then due to declining performance status and chronic back pain and compression fractures and kyphoplasty, chemotherapy was on hold, there was discussions of hospice, but lost to follow- up, recent history of pneumatosis Coli underwent exploratory laparotomy for small bowel mass, positive for small bowel adenocarcinoma, secondary primary cancer, history of bilateral subsegmental pulmonary emboli on Eliquis, pulmonary sarcoidosis, deconditioning, protein calorie malnutrition, history of adrenal insufficiency on chronic steroids, history of vertebral compression fractures, history of diastolic CHF, who presents to [facility] due to altered mental status, and shortness of breath. Acute hypoxic respiratory failure : Likely secondary to postobstructive pna as well as worsening malignancy. -CTA chest : No pulmonary embolism, Interval development of mucous plugging in the right lower lobe bronchus extending into multiple segmental and subsegmental bronchi in the right lower lobe. There is also interval development of patchy atelectasis versus pneumonia in the right lower lobe. Increase in size of a right suprahilar mass invading the distal right mainstem bronchus, right upper lobe bronchus, and bronchus intermedius. Findings concerning for worsening metastatic disease with increase in size of multiple pulmonary nodules and 2 new nodules in the right lower lobe. Fleischner Society follow up recommendations for incidental nodules are not indicated. Follow up per the patient's medical condition. 5. Incidental/nonacute findings are listed in the report. CT abdomen and pelvis: No acute intra-abdominal pathology Plan: Follow blood culture Sputum culture MRSA negative Monitor x-ray chest Monitor ABG -Was on vancomycin, and Zosyn. It was discontinued. -Continue Levaquin, and ceftriaxone. -Chest physical therapy Sepsis: Patient presented with hypotension , altered mental status , hypoxic: As usual the primary culprit may be aspiration. -As above Acute encephalopathy -Secondary to as above -Aspiration precautions, neurochecks NSTEMI: Likely type II MS: Patient currently denies any chest pain shortness of breath palpitation dizziness. -Positive troponins, positive delta troponin -EKG no acute ST-T wave changes -Continue therapeutic Lovenox -Aspirin, statin Follow 2 D Echo # H/O HFpEF : Currently compensated Monitor intake output charting Daily weight K>4, MG>2 Continue telemetry monitoring #History of PE: Currently Eliquis on hold Continue therapeutic Lovenox for now #History of adrenal insufficiency: Currently on hydrocortisone stress dose Continue midodrine History of adenocarcinoma the upper rectum, with metastasis to the lung, last palliative chemotherapy was in December 2020, there was discussions on hospice, lost to follow-up Recent hospitalization for small bowel adenocarcinoma, secondary primary cancer, History of vertebral fractures, Disposition: Given the poor functional status of the patient, and continued worsening, family is interested in longterm placement. Attestations Medical Necessity Statement*: For management of above defined problems Critical Care Time: The high probability of a clinically significant, sudden or life threatening deterioration of the patient's [] system(s) required my full and direct attention, intervention and personal management. The critical care time is as shown. This time is in addition to time spent performing any reported procedures but includes the following: [x] Data and vital sign review and interpretation [x] Patient assessment, examination and intervention [x] Documentation [x] Medication orders and management Coding Level of Care Code Acute Line Maintenance Supervisor for g Fwd Diagnoses Acute on chronic respiratory failure with hypoxia and hypercapnia J96.21; J96.22 Acute on chronic congestive heart failure I50.9 Pneumonia J18.9 Sepsis A41.9 Acute non-ST elevation myocardial infarction (NSTEMI) I21.4 COPD (chronic obstructive pulmonary disease) J44.9 COPD type: unspecified COPD H/O colon cancer, stage III Z85.038 Adrenal insufficiency E27.40
[2021-06-26] MEDS: cefTRIAXone 1,000 MG in sodium chloride 0.9% (plus) 50 ML 100 MG IV (15:01)
--- NOTE | 2021-06-26 17:50 | XRR_ITS ---
PROCEDURE INFORMATION: Exam: XR Chest Exam date and time: 06/26/2021 6:26 PM Age: 75 years old Clinical indication: Shortness of breath; Additional info: SOB TECHNIQUE: Imaging protocol: XR of the chest. Views: 1 view. COMPARISON: CR (CHEST, ) 06/25/2021 9:40 PM FINDINGS: Tubes, catheters and devices: Right internal jugular catheter tip over the right atrium. Stable left Mediport catheter. Lungs: Unremarkable. No consolidation. Pleural spaces: Unremarkable. No pleural effusion. No pneumothorax. Heart/Mediastinum: Unremarkable. No cardiomegaly. Bones/joints: 4 thoracic vertebroplasties. Stable one or more healed right rib fractures. XR/XR chest 1V portable [id number] IMPRESSION: 1. Right internal jugular catheter tip over the right atrium. 2. Stable left Mediport catheter.
[2021-06-26] MEDS: FUROsemide 10 mg/mL SDV 4mL 40 MG IVP (17:56)
--- NOTE | 2021-06-26 18:05 | PC.NURSE ---
Shift Note Frequent safety and comfort rounds continue. Orders and/or nursing care completed as indicated. Patient monitored for response to intervention and treatment(s). Education provided includes treatment plan, medications, oxygen and dc planning. Pt verbalizes understanding. Very HUSLIA. STAT CXR ordered d/t incresed SOB, lasix 40mg IVP given. Urinal and CLWR. Will continue to monitor.
--- NOTE | 2021-06-26 23:52 | PC.NURSE ---
Spoke with Dr. Carbajal about midodrine, with BP being 153/82 he ordered to hold at this time. Will evaluate next dose.
[2021-06-27] VITALS (52 sets, daily range): BP systolic 120–186; BP diastolic 70–136; PULSE 78–123; RESP 19–24; TEMP 36.4–37.1; O2SAT 91–99
[2021-06-27 03:15] LABS: Basophils % 0.3 %; Hematocrit 26.7 % (42.0-52.0); Hemoglobin 8.5 g/dL (11.7-16.6); Lymphocytes % 15.1 %; Mean Corpuscular HGB Conc 31.8 g/dL (30.0-36.0); Mean Corpuscular Hemoglobin 28.9 pg (28.0-34.0); Mean Corpuscular Volume 90.8 fl (80-94); Mean Platelet Volume 9.5 fL (7.4-10.4); Monocytes # 0.4 10^3/uL (0.2-0.9); Monocytes % 5.4 %; Neutrophils # 5.22 10^3/uL (1.8-7.7); Neutrophils % 78.7 %; Nucleated Red Blood Cells % 0 %; Platelet Count 234 10^3/cmm (130-400); Red Blood Count 2.94 10^6/uL (4.1-5.3); Red Cell Distribution Width 18.4 % (12.1-15.1); White Blood Count 6.6 10^3/uL (4.0-10.0)
[2021-06-27 03:35] LABS: Lactate (Lactic Acid level) 1.4 mmol/L (0.5-2.2)
[2021-06-27 03:38] LABS: Alanine Aminotransferase 10 U/L (0-41); Albumin Level 3.1 g/dL (3.5-5.2); Alkaline Phosphatase 116 IU/L (40-130); Anion Gap 11.2 (5-19); Aspartate Amino Transferase 16 U/L (0-40); Blood Urea Nitrogen 22 mg/dL (8-23); C Reactive Protein 59.4 mg/L (0.0-4.9); Calcium 8.7 mg/dL (8.5-10.5); Carbon Dioxide 31 mmol/L (22-29); Chloride 103 mmol/L (98-107); Globulin 2.4 g/dL (1.3-4.6); Glucose 131 mg/dL (65-115); Magnesium 1.6 mg/dL (1.7-2.3); Osmolality Calculated 299 mOsm/kg (285-295); Phosphorus 1.6 mg/dL (2.5-4.5); Potassium 3.2 mmol/L (3.5-5.1); Sodium 142 mmol/L (136-145); Total Bilirubin 0.2 mg/dL (0.15-1.2); Total Protein 5.5 g/dL (6.6-8.7)
[2021-06-27 03:41] LABS: Procalcitonin 0.08 ng/mL (0-0.5)
[2021-06-27] MEDS: potassium chloride ER 20 mEq Tablet PO (06:09)
[2021-06-27] MEDS: FUROsemide 10 mg/mL SDV 4mL 40 MG IVP (06:09)
[2021-06-27] MEDS: potassium chloride ER 20 mEq Tablet 40 MEQ PO (06:09)
[2021-06-27] MEDS: aspirin 81 mg EC Tablet PO (07:44)
[2021-06-27] MEDS: midodrine 5 mg TABLET 10 MG PO ×3 (07:44→22:38)
[2021-06-27] MEDS: hydrocortisone 100 mg/2 mL SDV 50 MG IVP ×2 (07:44→19:35)
[2021-06-27] MEDS: enoxaparin 60 mg/0.6 mL Syringe SUBCUT ×2 (07:44→19:35)
[2021-06-27] MEDS: pantoprazole DR 40 mg Tablet PO (07:44)
[2021-06-27] MEDS: budesonide 0.5 mg/2 mL Neb INHALATION ×2 (08:48→20:00)
[2021-06-27] MEDS: ipratropium-albuterol 3 mL Neb INHALATION ×4 (08:48→20:00)
--- NOTE | 2021-06-27 09:20 | PC.NURSE ---
Pt almost constantly on CL c/o being cold, despite multiple blankets and warm blankets and thermostat in room on high. Also c/o SOB, Bipap placed per orders. Pt assisted up to BSC and to chair and back to bed multiple times before bipap placement. Tolerates activity fair. Will monitor.
[2021-06-27] MEDS: cefTRIAXone 1,000 MG in sodium chloride 0.9% (plus) 50 ML 100 MG IV (14:48)
--- NOTE | 2021-06-27 14:52 | PM.PN ---
Subjective Subjective: Patient was seen and examined this morning, denies any shortness of breath, fever cough chest pain nausea vomiting, Currently he is alert awake oriented x3, saturating well on 3 L oxygen, maintaining a decent MAP. His other vitals labs and ABG have been reviewed. Given the fact that he is clinically very stable, and currently is requiring minimal supplemental oxygen, and denies any other respiratory symptoms, will narrow antibiotic coverage to levofloxacin IV. Will discontinue Vanco and Zosyn. Medications: Medication Review Details: Generic Name Dose Route Start Last Admin Trade Name Freq PRN Reason Stop Dose Admin Albuterol/Ipratrop ium 3 ml 06/26/21 08:00 06/26/21 11:24 Ipratropium-Albu terol 3 Ml Neb INHALATION 3 ml QID.RESPIRATORY S CH Administration Aspirin 81 mg 06/25/21 23:09 06/26/21 08:04 Aspirin 81 Mg Ec Tablet PO 81 mg DAILY MARTÍNEZ Administration Atorvastatin Calci um 40 mg 06/25/21 23:09 06/26/21 00:56 Atorvastatin 40 Mg Tablet PO 40 mg BEDTIME MARTÍNEZ Administration Budesonide 0.5 mg 06/25/21 23:09 06/26/21 07:43 Budesonide 0.5 M g/2 Ml Neb INHALATION 0.5 mg BID.RESPIRATORY S CH Administration Enoxaparin Sodium 60 mg 06/26/21 08:00 06/26/21 08:08 Enoxaparin 60 Mg /0.6 Ml Syringe SUBCUT 60 mg Q12H MARTÍNEZ Administration Hydrocortisone Sod ium Succinate 50 mg 06/26/21 08:00 06/26/21 08:07 Hydrocortisone 1 00 Mg/2 Ml Sdv IVP 50 mg Q12H MARTÍNEZ Administration Piperacillin Sod/T azobactam 50 mls @ 12.5 mls /hr 06/26/21 03:00 06/26/21 10:39 Sod 3.375 gm/ So dium Chloride IV 12.5 mls/hr Q8H MARTÍNEZ Administration Protocol Levofloxacin/Dextr ose 750 mg in 150 mls @ 100 mls/hr 06/25/21 23:30 06/26/21 02:17 Levaquin-D5w IV Infused Q24H MARTÍNEZ Infusion Protocol Norepinephrine Bit artrate 4 mg 254 mls @ 0 mls/h r 06/25/21 23:09 06/26/21 06:22 / Dextrose IV 0 mcg/min .Q0M MARTÍNEZ 0 mls/hr Titration Protocol Per Protocol Vancomycin HCl 750 mg/ Sodium 250 mls @ 250 mls /hr 06/26/21 00:00 06/26/21 13:26 Chloride IV Infused Q12H MARTÍNEZ Infusion Midodrine 10 mg 06/25/21 23:30 06/26/21 08:04 Midodrine 5 Mg T ablet PO 10 mg Q8H MARTÍNEZ Administration Pantoprazole Sodiu m 40 mg 06/25/21 23:09 06/26/21 10:40 Pantoprazole 40 Mg Sdv IVP 40 mg Q12H MARTÍNEZ Administration Vitals/I&O/Wt Last Vital Signs Temp 98.3 F 06/27/21 08:00 Pulse 103 H 06/27/21 13:57 Resp 19 H 06/27/21 11:19 BP 149/99 06/27/21 12:30 Pulse Ox 95 06/27/21 12:30 06/26/21 06/27/21 06/27/21 22:59 06:59 14:59 Intake Total 940 / 2100 420 / 2520 870 / 870 Output Total 1100 / 2150 350 / 2500 925 / 925 Balance -160 / -50 70 / 20 -55 / -55 Weight last 48 hrs Weight 65.499 kg Weight 59.874 kg Physical Exam Const: COMMON NORMALS: patient oriented x3 HENMT: COMMON NORMALS: normocephalic and atraumatic HEAD & SCALP: normocephalic and atraumatic Eye: GENERAL EYE: appearance normal, both eyes and all related structures Chest: COMMONS NORMALS: normal inspection of the chest and normal palpation of entire chest wall CHEST: Yes Symmetrical chest wall rise Resp: COMMON NORMALS: normal respiratory effort and No retractions EFFORT & INSPECTION: Yes symmetric chest movement OTHER: Diminished air entry bilaterally in both the lungs failed predominantly in the right lung base. Cardio: COMMON NORMALS: regular rate, regular rhythm, S1 normal heart sound present, S2 normal heart sound present, No gallops present (Cardio), No murmurs present (Cardio), No rub (Cardio) and Peripheral pulses 2+ throughout RATE: regular rate RHYTHM: regular rhythm HEART SOUNDS: S1 normal heart sound present and S2 normal heart sound present PERIPHERAL PULSES: Peripheral pulses 2+ throughout GI: COMMON NORMALS: Normal to inspection, nondistended, normoactive bowel sounds present, Soft to palpation, non-tender, No hepatosplenomegaly present and no masses AUSCULTATION: Yes normoactive bowel sounds PALPATION: Yes Soft to palpation and Yes No hepatosplenomegaly present RECTAL EXAM: Yes deferred Extremity: COMMON NORMALS: no clubbing, cyanosis or edema and no pedal edema Neuro: COMMON NORMALS: patient oriented x3 Data : 07/01/21 04:45 07/01/21 04:45 Micro: Microbiology 06/25/21 19:05 Blood Culture - Preliminary Blood NEGATIVE TO DATE 06/25/21 19:07 Blood Culture - Preliminary Blood NEGATIVE TO DATE 06/26/21 06:23 MRSA Culture - Final Nose A&P Assessment and plan (1) Acute on chronic respiratory failure with hypoxia and hypercapnia: Status: Resolved (2) Acute on chronic congestive heart failure: Status: Resolved (3) Pneumonia: Status: Resolved (4) Sepsis: Status: Resolved (5) Acute non-ST elevation myocardial infarction (NSTEMI): Status: Resolved (6) COPD (chronic obstructive pulmonary disease): Status: Chronic Qualifiers: COPD type: unspecified COPD Qualified Code(s): J44.9 - Chronic obstructive pulmonary disease, unspecified (7) H/O colon cancer, stage III: Status: Chronic (8) Adrenal insufficiency: Status: Chronic Plan Oswaldo Khan is a 75 year old male with a past medical history of invasive adenocarcinoma of the upper rectum, status post chemotherapy, with evidence of pulmonary nodules consistent with metastatic disease, multiple hypermetabolic mediastinal lymph nodes consistent with metastatic disease status post chemotherapy, however review of notes show mixed response, last palliative chemotherapy in early December 2020, since then due to declining performance status and chronic back pain and compression fractures and kyphoplasty, chemotherapy was on hold, there was discussions of hospice, but lost to follow-up, recent history of pneumatosis Coli underwent exploratory laparotomy for small bowel mass, positive for small bowel adenocarcinoma, secondary primary cancer, history of bilateral subsegmental pulmonary emboli on Eliquis, pulmonary sarcoidosis, deconditioning, protein calorie malnutrition, history of adrenal insufficiency on chronic steroids, history of vertebral compression fractures, history of diastolic CHF, who presents to [facility] due to altered mental status, and shortness of breath. Acute hypoxic respiratory failure : Likely secondary to postobstructive pna as well as worsening malignancy. -CTA chest : No pulmonary embolism, Interval development of mucous plugging in the right lower lobe bronchus extending into multiple segmental and subsegmental bronchi in the right lower lobe. There is also interval development of patchy atelectasis versus pneumonia in the right lower lobe. Increase in size of a right suprahilar mass invading the distal right mainstem bronchus, right upper lobe bronchus, and bronchus intermedius. Findings concerning for worsening metastatic disease with increase in size of multiple pulmonary nodules and 2 new nodules in the right lower lobe. Fleischner Society follow up recommendations for incidental nodules are not indicated. Follow up per the patient's medical condition. 5. Incidental/nonacute findings are listed in the report. CT abdomen and pelvis: No acute intra-abdominal pathology Plan: Follow blood culture Sputum culture MRSA PCR:Positive Monitor x-ray chest Monitor ABG -Was on vancomycin,Cef and Levofloxacin -Chest physical therapy Sepsis: Patient presented with hypotension , altered mental status , hypoxic: As usual the primary culprit may be aspiration. -As above Acute encephalopathy -Secondary to as above -Aspiration precautions, neurochecks NSTEMI: Likely type II UT: Patient currently denies any chest pain shortness of breath palpitation dizziness. -Positive troponins, positive delta troponin -EKG no acute ST-T wave changes -Continue therapeutic Lovenox -Aspirin, statin Follow 2 D Echo # H/O HFpEF : Currently compensated Monitor intake output charting Daily weight K>4, MG>2 Continue telemetry monitoring #History of PE: Currently Eliquis on hold Continue therapeutic Lovenox for now #History of adrenal insufficiency: Currently on hydrocortisone stress dose Continue midodrine History of adenocarcinoma the upper rectum, with metastasis to the lung, last palliative chemotherapy was in December 2020, there was discussions on hospice, lost to follow-up Recent hospitalization for small bowel adenocarcinoma, secondary primary cancer, History of vertebral fractures, Disposition: Given the poor functional status of the patient, and continued worsening, family is interested in usp placement. Attestations Medical Necessity Statement*: Patient needs to be in hospital for the management of above defined problems. Coding Level of Care Code Acute Asphalt Heater Tender for g Fwd Exam Comprehensive Diagnoses Acute on chronic respiratory failure with hypoxia and hypercapnia J96.21; J96.22 Acute on chronic congestive heart failure I50.9 Pneumonia J18.9 Sepsis A41.9 Acute non-ST elevation myocardial infarction (NSTEMI) I21.4 COPD (chronic obstructive pulmonary disease) J44.9 COPD type: unspecified COPD H/O colon cancer, stage III Z85.038 Adrenal insufficiency E27.40
--- NOTE | 2021-06-27 17:44 | PC.NURSE ---
Pt resting in bed. AAOx4, makes all needs known. [place], c/o being cold all day long despite multiple blankets. Son at bedside at this time. Bipap used earlier d/t c/o SOB, pt constantly asked to remove it. Pt wore mask for approx 2 hours before taking off. O2@4LNC. Uses urinal and BSC with minimal assist. VSS. Remains tachy. Will monitor.
[2021-06-27] MEDS: atorvastatin 40 mg Tablet PO (19:35)
[2021-06-27] MEDS: vancomycin 1,000 MG in sodium chloride 0.9% 250 ML 250 MG IV (22:36)
[2021-06-27] MEDS: levofloxacin-dextrose 5 % 750 MG/150 ML PREMIX 100 MG IV (22:42)
[2021-06-28] VITALS (19 sets, daily range): BP systolic 142–155; BP diastolic 81–97; PULSE 88–112; RESP 17–25; TEMP 36.6–37; O2SAT 92–100
[2021-06-28 03:52] LABS: Hematocrit 27.4 % (42.0-52.0); Hemoglobin 8.6 g/dL (11.7-16.6); Lymphocytes % 16.4 %; Mean Corpuscular HGB Conc 31.4 g/dL (30.0-36.0); Mean Corpuscular Hemoglobin 28.9 pg (28.0-34.0); Mean Corpuscular Volume 91.9 fl (80-94); Mean Platelet Volume 9.3 fL (7.4-10.4); Monocytes # 0.4 10^3/uL (0.2-0.9); Monocytes % 6.7 %; Neutrophils # 4.56 10^3/uL (1.8-7.7); Neutrophils % 76.4 %; Nucleated Red Blood Cells % 0 %; Platelet Count 235 10^3/cmm (130-400); Red Blood Count 2.98 10^6/uL (4.1-5.3); Red Cell Distribution Width 18.2 % (12.1-15.1)
[2021-06-28 04:02] LABS: INR 1.08 (0.8-1.2)
[2021-06-28 04:12] LABS: Alanine Aminotransferase 13 U/L (0-41); Albumin Level 3.1 g/dL (3.5-5.2); Alkaline Phosphatase 117 IU/L (40-130); Anion Gap 10.7 (5-19); Aspartate Amino Transferase 18 U/L (0-40); Blood Urea Nitrogen 18 mg/dL (8-23); C Reactive Protein 26.3 mg/L (0.0-4.9); Calcium 8.7 mg/dL (8.5-10.5); Carbon Dioxide 31 mmol/L (22-29); Chloride 103 mmol/L (98-107); Globulin 2.3 g/dL (1.3-4.6); Glucose 131 mg/dL (65-115); Magnesium 1.4 mg/dL (1.7-2.3); Osmolality Calculated 296 mOsm/kg (285-295); Phosphorus 1.6 mg/dL (2.5-4.5); Potassium 3.7 mmol/L (3.5-5.1); Sodium 141 mmol/L (136-145); Total Bilirubin 0.2 mg/dL (0.15-1.2); Total Protein 5.4 g/dL (6.6-8.7)
[2021-06-28 04:15] LABS: Lactate (Lactic Acid level) 1.4 mmol/L (0.5-2.2)
[2021-06-28 04:16] LABS: Procalcitonin 0.06 ng/mL (0-0.5)
[2021-06-28] MEDS: vancomycin 1,000 MG in sodium chloride 0.9% 250 ML 250 MG IV ×3 (05:30→22:48)
[2021-06-28] MEDS: acetaminophen 325 mg Tablet 650 MG PO ×2 (05:34→20:40)
[2021-06-28] MEDS: budesonide 0.5 mg/2 mL Neb INHALATION ×2 (07:30→21:08)
[2021-06-28] MEDS: ipratropium-albuterol 3 mL Neb INHALATION ×4 (07:30→21:08)
[2021-06-28] MEDS: hydrocortisone 100 mg/2 mL SDV 50 MG IVP ×2 (09:03→20:42)
[2021-06-28] MEDS: aspirin 81 mg EC Tablet PO (09:03)
[2021-06-28] MEDS: enoxaparin 60 mg/0.6 mL Syringe SUBCUT ×2 (09:03→20:42)
[2021-06-28] MEDS: pantoprazole DR 40 mg Tablet PO (09:05)
--- NOTE | 2021-06-28 09:15 | PC.SOCIAL ---
IMM Update Pg. 2 of IMM updated and reviewed with patient who verbalized understanding. Copy provided.
--- NOTE | 2021-06-28 13:28 | XR_ITS ---
WS: [id number] Portable AP upright chest, 06/28/2021 Clinical Data: hypoxia Comparison: Portable chest, 06/26/2021. Findings: A patchy right lower lobe pulmonary opacity has developed. This probably represents consoli dation, atelectasis and effusion. There is a shift of the heart from left to right. Left lung is tiago r. The heart size is normal. The aortic arch and descending thoracic aorta show tortuosity. There is a right internal jugular venous catheter ending at the cavoatrial junction. There is a left subclavia n catheter possibly ending in the left subclavian vein close to the junction with the superior vena c isma. Multiple vertebral plasties have been performed. Monitor leads are on the chest wall. XR/XR chest 1V portable [id number] Impression: 1. Development of patchy right lower lobe pulmonary opacity representing probab le pneumonia, atelectasis and right pleural effusion. 2. Atherosclerosis.
[2021-06-28] MEDS: HYDROcodone-acetaminophen 5-325 mg Tablet 1 TAB PO (14:21)
[2021-06-28] MEDS: cefTRIAXone 1,000 MG in sodium chloride 0.9% (plus) 50 ML 100 MG IV (15:30)
--- NOTE | 2021-06-28 18:57 | P.MISC_ITS ---
Miscellaneous Note Purpose of Documentation: Palliative Care Note Note: Reviewed chart. Spoke with des RN and she repeated my questions to patient. He continues to have back pain despite receiving hydrocodone. permission given to call son. Spoke with son and his Vicenta who is RN familiar with hospice and palliative care. I updated them on new finding on CTA of chest fro 06/25 showing tumor invastion into distal right mainstem bonchus, r upper love bronchus and bronchus intermedius. They were not aware of findings. I explained that very clearly delineated that pt's performance status is too poor to tolerated palliative chemo however, they requested that discuss with pt as pt likely not to trust another doctor. off all week. Dr. Jaeger flight operations coordinator. LM for him to call me. A/P 75 yr old with Stage IV rectal CA and StageIII small bowel adenocarcinoma, on chronic steroids with multiple compression fracture of thoracic spine with constant moderate to serveer pain. Pt with very poor performance status and not able to undergo further palliative chemotherapy. Pain: change to oxycodone long acting with breakthrough oxycodone IR, add celebrex high dose and possible lidocaine pain patches. SOB: oxygen , add ativan for anxiety. short acting morphine will help as well constipation: scheduled bowel rountine. suuplement with IV magnesium as well. Absorption may be poor due to recent small bowel resection and the tumor burden. Pt would qualify for hospice and I would recommend it. However, if pt opposed, recommend control of symptoms and no further escalation of care. Perhaps no return to hospital or DNR and no ICU admission. Ideally would like to discuss with pt and family. Son believer father is trying to be strong for his only child and that son should not be present for this discussion. DR. Jf Claire Palliative Welcome Wagon Host/Hostess
--- NOTE | 2021-06-28 19:24 | PM.PN ---
Subjective Subjective: Reports eating okay, little bit better now. Reports he was quite short of breath earlier, did not think he was going to make it. He is very hard of hearing, is difficult. States his legs swelled up like balloons. Vitals/I&O/Wt Last Vital Signs Temp 98.0 F 06/28/21 15:56 Pulse 102 H 06/28/21 16:17 Resp 20 H 06/28/21 16:07 BP 144/83 06/28/21 15:56 Pulse Ox 94 06/28/21 16:07 06/28/21 06/28/21 06/28/21 06:59 14:59 22:59 Intake Total 460 / 1860 490 / 490 300 / 790 Output Total 350 / 1800 Balance 110 / 60 490 / 490 300 / 790 Weight last 48 hrs Weight 66.678 kg Physical Exam Const: COMMON NORMALS: no acute distress and patient oriented x3 OTHER: Very [place] HENMT: COMMON NORMALS: oropharynx normal Neck/C-Spine: COMMON NORMALS: no JVD Resp: COMMON NORMALS: normal respiratory effort AUSCULTATION: diminished lung sounds bilateral in the lower lung sylvester Cardio: COMMON NORMALS: no JVD, regular rhythm, S1 normal heart sound present, S2 normal heart sound present and No murmurs present (Cardio) RHYTHM: regular rhythm HEART SOUNDS: S1 normal heart sound present and S2 normal heart sound present GI: COMMON NORMALS: Normal to inspection, nondistended, normoactive bowel sounds present, Soft to palpation and non-tender PALPATION: Yes Soft to palpation Extremity: COMMON NORMALS: no joint enlargement GENERAL: Yes edema (2+ ankles) Neuro: COMMON NORMALS: patient oriented x3 and moves all extremities Skin: COMMON NORMALS: no rashes or lesions noted GENERAL SKIN EXAM: no rashes or lesions noted Data : 06/28/21 03:39 06/28/21 03:39 A&P Assessment and plan (1) Acute on chronic respiratory failure with hypoxia and hypercapnia: Slightly worse oxygenation today, requiring up to 5 L nasal cannula oxygen. Repeat chest x-ray. With noted right lower lobe opacification, pneumonia. Continue coverage with vancomycin given concern for possible postobstructive pneumonia with lung metastatic disease. Continue ceftriaxone. If not improving, consider broadening. In case not improving, consider assessment for radiation therapy. Status: Acute (2) Pneumonia: As above Status: Acute (3) Sepsis: Sepsis resolved Status: Acute (4) Acute on chronic congestive heart failure: Acute diastolic CHF. Lasix 20 mg IV, monitor I&O. Reassess volume status. Status: Acute (5) Acute non-ST elevation myocardial infarction (NSTEMI): Status: Acute (6) COPD (chronic obstructive pulmonary disease): Status: Acute Qualifiers: COPD type: unspecified COPD Qualified Code(s): J44.9 - Chronic obstructive pulmonary disease, unspecified (7) H/O colon cancer, stage III: Metastatic. Also additional malignancy of small intestine, second primary. Discussed addition of palliative care team and both he and his son are agreeable. Son states he did not want to give up palliative treatments and was not ready for hospice. Status: Acute (8) Adrenal insufficiency: Status: Acute Plan Oswaldo Khan is a 75 year old male with a past medical history of invasive adenocarcinoma of the upper rectum, status post chemotherapy, with evidence of pulmonary nodules consistent with metastatic disease, multiple hypermetabolic mediastinal lymph nodes consistent with metastatic disease status post chemotherapy, however review of notes show mixed response, last palliative chemotherapy in early December 2020, since then due to declining performance status and chronic back pain and compression fractures and kyphoplasty, chemotherapy was on hold, there was discussions of hospice, but lost to follow-up, recent history of pneumatosis Coli underwent exploratory laparotomy for small bowel mass, positive for small bowel adenocarcinoma, secondary primary cancer, history of bilateral subsegmental pulmonary emboli on Eliquis, pulmonary sarcoidosis, deconditioning, protein calorie malnutrition, history of adrenal insufficiency on chronic steroids, history of vertebral compression fractures, history of diastolic CHF, who presents to [facility] due to altered mental status, and shortness of breath. History of adenocarcinoma the upper rectum, with metastasis to the lung, last palliative chemotherapy was in December 2020, there was discussions on hospice, lost to follow-up Recent hospitalization for small bowel adenocarcinoma, secondary primary cancer, History of vertebral fractures, Disposition: Given the poor functional status of the patient, and continued worsening, family is interested in prison placement. Attestations Medical Necessity Statement*: Continue admission for assessment management of hypoxic respiratory failure, pneumonia with postobstructive component with metastatic malignancy to the lung, CHF exacerbation. Coding Level of Care Code Acute Patch Finisher for Chg Fwd Diagnoses Acute on chronic respiratory failure with hypoxia and hypercapnia J96.21; J96.22 Acute on chronic congestive heart failure I50.9 Pneumonia J18.9 Sepsis A41.9 Acute non-ST elevation myocardial infarction (NSTEMI) I21.4 COPD (chronic obstructive pulmonary disease) J44.9 COPD type: unspecified COPD H/O colon cancer, stage III Z85.038 Adrenal insufficiency E27.40
[2021-06-28] MEDS: atorvastatin 40 mg Tablet PO (20:40)
[2021-06-28] MEDS: CELEcoxib 200 mg Capsule 400 MG PO (20:40)
[2021-06-28] MEDS: LORazepam 0.5 mg Tablet PO (20:40)
[2021-06-28] MEDS: phosphorus 250 mg Tablet PO (20:40)
[2021-06-28] MEDS: FUROsemide 10 mg/mL SDV 2mL 20 MG IVP (20:41)
[2021-06-28] MEDS: magnesium sulfate premix 4 GM/100 ML PREMIX IV (20:41)
[2021-06-28] MEDS: oxyCODONE-APAP 5-325 mg Tablet 1 TAB PO (21:30)
[2021-06-28 22:08] LABS: Vancomycin Trough 15.3 ug/mL (10-15)
[2021-06-29] VITALS (17 sets, daily range): BP systolic 136–147; BP diastolic 85–96; PULSE 101–123; RESP 16–19; TEMP 36.6–37.1; O2SAT 92–98
[2021-06-29] MEDS: levofloxacin-dextrose 5 % 750 MG/150 ML PREMIX 100 MG IV (00:19)
[2021-06-29] MEDS: oxyCODONE-APAP 5-325 mg Tablet 1 TAB PO ×4 (03:00→20:42)
[2021-06-29 05:38] LABS: Basophils % 0.1 %; Hematocrit 30.1 % (42.0-52.0); Hemoglobin 9.6 g/dL (11.7-16.6); Lymphocytes # 1.3 10^3/uL (0.8-4.8); Lymphocytes % 17.2 %; Mean Corpuscular HGB Conc 31.9 g/dL (30.0-36.0); Mean Corpuscular Hemoglobin 29.1 pg (28.0-34.0); Mean Corpuscular Volume 91.2 fl (80-94); Mean Platelet Volume 9.7 fL (7.4-10.4); Monocytes # 0.5 10^3/uL (0.2-0.9); Monocytes % 6.7 %; Neutrophils # 5.62 10^3/uL (1.8-7.7); Neutrophils % 75.3 %; Nucleated Red Blood Cells % 0 %; Platelet Count 270 10^3/cmm (130-400); Red Cell Distribution Width 17.9 % (12.1-15.1); White Blood Count 7.5 10^3/uL (4.0-10.0)
[2021-06-29] MEDS: vancomycin 1,000 MG in sodium chloride 0.9% 250 ML 250 MG IV ×3 (05:52→21:00)
[2021-06-29 06:11] LABS: Anion Gap 11.1 (5-19); Blood Urea Nitrogen 13 mg/dL (8-23); Calcium 8.6 mg/dL (8.5-10.5); Carbon Dioxide 29 mmol/L (22-29); Chloride 100 mmol/L (98-107); Glucose 154 mg/dL (65-115); Osmolality Calculated 285 mOsm/kg (285-295); Potassium 4.1 mmol/L (3.5-5.1); Sodium 136 mmol/L (136-145)
[2021-06-29] MEDS: midodrine 5 mg TABLET 10 MG PO ×2 (08:13→14:42)
[2021-06-29] MEDS: phosphorus 250 mg Tablet PO ×3 (08:13→20:42)
[2021-06-29] MEDS: CELEcoxib 200 mg Capsule PO ×2 (08:14→20:42)
[2021-06-29] MEDS: aspirin 81 mg EC Tablet PO (08:14)
[2021-06-29] MEDS: pantoprazole DR 40 mg Tablet PO (08:14)
[2021-06-29] MEDS: FUROsemide 10 mg/mL SDV 2mL 20 MG IVP (08:14)
[2021-06-29] MEDS: enoxaparin 60 mg/0.6 mL Syringe SUBCUT ×2 (08:15→20:43)
[2021-06-29] MEDS: hydrocortisone 100 mg/2 mL SDV 50 MG IVP ×2 (08:20→20:43)
[2021-06-29] MEDS: budesonide 0.5 mg/2 mL Neb INHALATION ×2 (08:50→19:45)
[2021-06-29] MEDS: ipratropium-albuterol 3 mL Neb INHALATION ×3 (08:50→19:45)
[2021-06-29] MEDS: piperacillin-tazobactam 3.375 GM in sodium chloride 0.9% (plus) 50 ML IV ×2 (09:43→16:55)
--- NOTE | 2021-06-29 16:47 | PM.PN ---
Subjective Subjective: He reports he is doing slightly better today. Breathing a bit easier. Bringing up some phlegm. Vitals/I&O/Wt Last Vital Signs Temp 98.5 F 06/29/21 15:41 Pulse 105 H 06/29/21 15:41 Resp 16 06/29/21 15:41 BP 147/87 06/29/21 15:41 Pulse Ox 97 06/29/21 15:41 06/29/21 06/29/21 06/29/21 06:59 14:59 22:59 Intake Total 400 / 1430 760 / 760 250 / 1010 Output Total 800 / 925 450 / 450 125 / 575 Balance -400 / 505 310 / 310 125 / 435 Weight last 48 hrs Weight 66.678 kg Physical Exam Const: COMMON NORMALS: no acute distress and patient oriented x3 OTHER: Very [place] HENMT: COMMON NORMALS: oropharynx normal Neck/C-Spine: COMMON NORMALS: no JVD Resp: COMMON NORMALS: normal respiratory effort AUSCULTATION: diminished lung sounds bilateral in the lower lung sylvester Cardio: COMMON NORMALS: no JVD, regular rhythm, S1 normal heart sound present, S2 normal heart sound present and No murmurs present (Cardio) RHYTHM: regular rhythm HEART SOUNDS: S1 normal heart sound present and S2 normal heart sound present GI: COMMON NORMALS: Normal to inspection, nondistended, normoactive bowel sounds present, Soft to palpation and non-tender PALPATION: Yes Soft to palpation Extremity: COMMON NORMALS: no joint enlargement GENERAL: Yes edema (2+ ankles) Neuro: COMMON NORMALS: patient oriented x3 and moves all extremities Skin: COMMON NORMALS: no rashes or lesions noted GENERAL SKIN EXAM: no rashes or lesions noted Data : 06/29/21 04:43 06/29/21 04:43 A&P Assessment and plan (1) Acute on chronic respiratory failure with hypoxia and hypercapnia: Broadening antibiotics today, switched over to Zosyn. Continue vancomycin. Chest x-ray with noted development of patchy right lower lobe pulmonary opacity representing probable pneumonia, atelectasis and right pleural effusion. Slightly worse oxygenation, requiring up to 5 L nasal cannula oxygen. Repeat chest x-ray. With noted right lower lobe opacification, pneumonia. Continue coverage with vancomycin given concern for possible postobstructive pneumonia with lung metastatic disease. In case not improving, consider assessment for radiation therapy. Status: Acute (2) Pneumonia: As above Status: Acute (3) Sepsis: Sepsis resolved Status: Acute (4) Acute on chronic congestive heart failure: Acute diastolic CHF. Resumed Lasix 20 mg IV, monitor I&O. Reassess volume status. Status: Acute (5) Acute non-ST elevation myocardial infarction (NSTEMI): Status: Acute (6) COPD (chronic obstructive pulmonary disease): Status: Acute Qualifiers: COPD type: unspecified COPD Qualified Code(s): J44.9 - Chronic obstructive pulmonary disease, unspecified (7) H/O colon cancer, stage III: Metastatic. Also additional malignancy of small intestine, second primary. Discussed addition of palliative care team and both he and his son are agreeable. Son states he did not want to give up palliative treatments and was not ready for hospice. Continue discussions of goals of care. Status: Acute (8) Adrenal insufficiency: Status: Acute Plan Oswaldo Khan is a 75 year old male with a past medical history of invasive adenocarcinoma of the upper rectum, status post chemotherapy, with evidence of pulmonary nodules consistent with metastatic disease, multiple hypermetabolic mediastinal lymph nodes consistent with metastatic disease status post chemotherapy, however review of notes show mixed response, last palliative chemotherapy in early December 2020, since then due to declining performance status and chronic back pain and compression fractures and kyphoplasty, chemotherapy was on hold, there was discussions of hospice, but lost to follow-up, recent history of pneumatosis Coli underwent exploratory laparotomy for small bowel mass, positive for small bowel adenocarcinoma, secondary primary cancer, history of bilateral subsegmental pulmonary emboli on Eliquis, pulmonary sarcoidosis, deconditioning, protein calorie malnutrition, history of adrenal insufficiency on chronic steroids, history of vertebral compression fractures, history of diastolic CHF, who presents to [facility] due to altered mental status, and shortness of breath. History of adenocarcinoma the upper rectum, with metastasis to the lung, last palliative chemotherapy was in December 2020, there was discussions on hospice, lost to follow-up Recent hospitalization for small bowel adenocarcinoma, secondary primary cancer, History of vertebral fractures, Disposition: Given the poor functional status of the patient, and continued worsening, family is interested in skilled nursing placement. Attestations Medical Necessity Statement*: Continue admission for assessment management of hypoxia and complicated postobstructive pneumonia with metastatic cancer. Coding Level of Care Code Acute Railroad Car Repairman for Chg Fwd Exam Comprehensive Diagnoses Acute on chronic respiratory failure with hypoxia and hypercapnia J96.21; J96.22 Pneumonia J18.9 Sepsis A41.9 Acute on chronic congestive heart failure I50.9 Acute non-ST elevation myocardial infarction (NSTEMI) I21.4 COPD (chronic obstructive pulmonary disease) J44.9 COPD type: unspecified COPD H/O colon cancer, stage III Z85.038 Adrenal insufficiency E27.40
[2021-06-29] MEDS: atorvastatin 40 mg Tablet PO (20:42)
[2021-06-30] VITALS (15 sets, daily range): BP systolic 129–138; BP diastolic 78–88; PULSE 94–111; RESP 16–18; TEMP 36.5–37.3; O2SAT 92–97
[2021-06-30] MEDS: levofloxacin-dextrose 5 % 750 MG/150 ML PREMIX 100 MG IV ×2 (00:08→23:31)
[2021-06-30] MEDS: oxyCODONE-APAP 5-325 mg Tablet 1 TAB PO ×2 (01:34→14:55)
[2021-06-30] MEDS: piperacillin-tazobactam 3.375 GM in sodium chloride 0.9% (plus) 50 ML IV ×3 (01:35→16:09)
[2021-06-30 05:04] LABS: Basophils % 0.1 %; Eosinophils % 0.1 %; Hematocrit 30.8 % (42.0-52.0); Hemoglobin 9.9 g/dL (11.7-16.6); Lymphocytes % 9.6 %; Mean Corpuscular HGB Conc 32.1 g/dL (30.0-36.0); Mean Corpuscular Hemoglobin 28.6 pg (28.0-34.0); Mean Platelet Volume 10.1 fL (7.4-10.4); Monocytes # 0.6 10^3/uL (0.2-0.9); Monocytes % 5.6 %; Neutrophils # 8.39 10^3/uL (1.8-7.7); Neutrophils % 84.1 %; Nucleated Red Blood Cells % 0 %; Platelet Count 293 10^3/cmm (130-400); Red Blood Count 3.46 10^6/uL (4.1-5.3); Red Cell Distribution Width 17.7 % (12.1-15.1)
[2021-06-30 05:34] LABS: Anion Gap 9.7 (5-19); Blood Urea Nitrogen 17 mg/dL (8-23); Calcium 8.4 mg/dL (8.5-10.5); Carbon Dioxide 29 mmol/L (22-29); Chloride 106 mmol/L (98-107); Glucose 135 mg/dL (65-115); Osmolality Calculated 296 mOsm/kg (285-295); Potassium 3.7 mmol/L (3.5-5.1); Sodium 141 mmol/L (136-145)
[2021-06-30] MEDS: midodrine 5 mg TABLET 10 MG PO ×3 (06:33→23:33)
[2021-06-30] MEDS: vancomycin 1,000 MG in sodium chloride 0.9% 250 ML 250 MG IV ×3 (06:33→23:29)
[2021-06-30] MEDS: ipratropium-albuterol 3 mL Neb INHALATION ×4 (07:42→19:45)
[2021-06-30] MEDS: budesonide 0.5 mg/2 mL Neb INHALATION ×2 (07:42→19:45)
[2021-06-30] MEDS: hydrocortisone 100 mg/2 mL SDV 50 MG IVP (09:04)
[2021-06-30] MEDS: FUROsemide 10 mg/mL SDV 2mL 20 MG IVP (09:04)
--- NOTE | 2021-06-30 09:20 | PC.SOCIAL ---
IMM Update Pg. 2 of IMM updated and reviewed with patient, who verbalized understanding. Copy provided.
[2021-06-30] MEDS: morphine ER (12 HR) 15 mg Tablet PO ×2 (09:28→17:56)
[2021-06-30] MEDS: phosphorus 250 mg Tablet PO ×3 (09:28→20:05)
[2021-06-30] MEDS: aspirin 81 mg EC Tablet PO (09:29)
[2021-06-30] MEDS: CELEcoxib 200 mg Capsule PO ×2 (09:29→20:05)
[2021-06-30] MEDS: enoxaparin 60 mg/0.6 mL Syringe SUBCUT ×2 (09:29→20:05)
[2021-06-30] MEDS: pantoprazole DR 40 mg Tablet PO (09:32)
--- NOTE | 2021-06-30 15:50 | P.CONIM_ITS ---
Providers/Reason For Consult Consulting Physician/Specialty*: Palliative Care Reason for Consult*: Address plan of care in patient with Stage IV cancer Requesting Physician: Che Attending Physician: Georgi Bolton Primary Care Provider: Tamika Chavis MD History of Present Illness History of Present Illness Oswaldo Khan is a 75 year old male present chest pain, shortness of breath, and cough. He was found to have acute AK with elevated troponins. CTA showed no PE, However, increased size of metastatic disease in right suprahilar area. It also showed 2 new lesions in right lobes. Pt has required oxygen at about 5 L last few days until today and now on 3L. He was found to have post obstructive pneumonia treated with abx. Rectal CA has metastazised to lung and has a new primary small bowel adenocarcin humberto. His performance status is worsening and not a candiate for further palliative chemotherapy. Pt believes he will go to [place] for 20 days, go home and then have chemo or radiation and beat this thing . He says people are telling me different things about the cancer . He said said it was shrinking. He is mostly concerned about his dogs and would like to see more of his grandchildren. Review of Systems General: Reports: Other (Pt extremetly KLUTI KAAH, unable to obtain full ROS via telemedicine or phone) Medications/Allergies Home Medications Medication Instructions Recorded Confirmed Last Taken Type capecitabine 500 mg tablet (Xeloda) See Rx Instructions .ROUTE .COMPLEX 01/26/21 06/25/21 Unknown History prednisone 20 mg tablet 20 mg PO DAILY 01/26/21 06/25/21 03/06/21 History docusate sodium 100 mg capsule 100 mg PO BEDTIME PRN 03/14/21 06/25/21 03/13/21 History (Stool Softener) tiotropium bromide 1.25 1 puff INHALATION DAILY 03/14/21 06/25/21 Unknown History mcg/actuation mist for inhalation (Spiriva Respimat) miscellaneous medical supply #1 ea 03/19/21 06/25/21 Unknown Rx magnesium hydroxide 400 mg/5 mL 30 ml PO BID PRN #400 ml 03/27/21 06/25/21 Unknown Rx oral suspension (Milk of Magnesia) pantoprazole 40 mg tablet,delayed 40 mg PO DAILY #30 tab 04/30/21 06/25/21 Unknown Rx release (Protonix) hydrocodone 5 mg-acetaminophen 325 1 tab PO Q6H PRN #15 tab 05/07/21 06/25/21 Unknown Rx mg tablet megestrol 20 mg tablet 20 mg PO BID #60 tab 05/07/21 06/25/21 Unknown Rx ondansetron 4 mg disintegrating 4 mg PO TID PRN #15 tab 05/07/21 06/25/21 Unknown Rx tablet albuterol sulfate 90 mcg/actuation 2 puff INHALATION Q6H PRN 05/13/21 06/25/21 Unknown History aerosol inhaler mirtazapine 15 mg disintegrating 15 mg PO BEDTIME 05/13/21 06/25/21 Unknown Hist ory tablet tamsulosin 0.4 mg capsule 0.4 mg PO BEDTIME 05/13/21 06/25/21 Unknown History tiotropium 2.5 mcg-olodaterol 2.5 2 puff INHALATION DAILY 05/13/21 06/25/21 Unknown History mcg/actuation mist for inhalation (Stiolto Respimat) lactulose 10 gram oral packet 10 g PO DAILY PRN #15 ea 05/29/21 06/25/21 Unknown Rx magnesium 200 mg tablet 200 mg PO DAILY #20 tab 05/29/21 06/25/21 Unknown Rx sennosides 8.6 mg-docusate sodium 1 tab-cap PO DAILY #60 tab 05/29/21 06/25/21 Unknown Rx 50 mg tablet (Senna-S) oxycodone 5 mg capsule 5 mg PO Q6H PRN 7 Days #40 cap 06/18/21 06/25/21 Unknown Rx duloxetine 20 mg capsule,delayed 20 mg PO DAILY 06/25/21 06/25/21 Unknown History release lisinopril 40 mg tablet 40 mg PO DAILY 06/25/21 06/25/21 Unknown History magnesium oxide,aspartate,citr 400 mg PO DAILY 06/25/21 06/25/21 Unknown History (Triple Magnesium Complex) Allergies Allergy/AdvReac Type Severity Reaction Status Date / Time No Known Allergies Allergy Verified 06/18/21 14:45 Current Medications Generic Name Dose Route Start Last Admin Trade Name Freq PRN Reason Stop Dose Admin Acetaminophen 650 mg 06/25/21 23:09 06/28/21 20:40 Acetaminophen 325 Mg Tablet PO 650 mg Q6H PRN Administration Mild/Mod Pain Or Temp >/= 101 Albuterol Sulfate 2.5 mg 06/27/21 05:52 06/27/21 06:01 Albuterol 2.5 Mg/0.5 Ml Neb INHALATION 2.5 mg Q4H.RESPIRATORY PRN Administration SHORTNESS OF BREATH Albuterol/Ipratropium 3 ml 06/26/21 08:00 06/30/21 15:47 Ipratropium-Albuterol 3 Ml Neb INHALATION 3 ml QID.RESPIRATORY MARTÍNEZ Administration Aspirin 81 mg 06/25/21 23:09 06/30/21 09:29 Aspirin 81 Mg Ec Tablet PO 81 mg DAILY MARTÍNEZ Administration Atorvastatin Calcium 40 mg 06/25/21 23:09 06/29/21 20:42 Atorvastatin 40 Mg Tablet PO 40 mg BEDTIME MARTÍNEZ Administration Budesonide 0.5 mg 06/25/21 23:09 06/30/21 07:42 Budesonide 0.5 Mg/2 Ml Neb INHALATION 0.5 mg BID.RESPIRATORY MARTÍNEZ Administration Celecoxib 200 mg 06/29/21 09:00 06/30/21 09:29 Celecoxib 200 Mg Capsule PO 200 mg Q12H MARTÍNEZ Administration Enoxaparin Sodium 60 mg 06/26/21 08:00 06/30/21 09:29 Enoxaparin 60 Mg/0.6 Ml Syringe SUBCUT 60 mg Q12H MARTÍNEZ Administration Furosemide 20 mg 06/28/21 19:40 06/30/21 09:04 Furosemide 10 Mg/Ml Sdv 2ml IVP 20 mg DAILY MARTÍNEZ Administration Hydrocortisone Sodium Succinate 50 mg 06/26/21 08:00 06/30/21 09:04 Hydrocortisone 100 Mg/2 Ml Sdv IVP 50 mg Q12H MARTÍNEZ Administration Levofloxacin/Dextrose 750 mg in 150 mls @ 100 mls/hr 06/25/21 23:30 06/30/21 02:35 Levaquin-D5w IV Infused Q24H MARTÍNEZ Infusion Protocol Vancomycin HCl 1,000 mg/ 250 mls @ 250 mls/hr 06/27/21 22:00 06/30/21 14:54 Sodium Chloride IV 250 mls/hr Q8H MARTÍNEZ Administration Piperacillin Sod/Tazobactam 50 mls @ 12.5 mls/hr 06/29/21 08:45 06/30/21 13:39 Sod 3.375 gm/ Sodium Chloride IV Infused Q8H MARTÍNEZ Infusion Protocol Lorazepam 0.5 mg 06/28/21 19:11 06/28/21 20:40 Lorazepam 0.5 Mg Tablet PO 0.5 mg TID PRN Administration ANXIETY Midodrine 10 mg 06/25/21 23:30 06/30/21 14:55 Midodrine 5 Mg Tablet PO 10 mg Q8H MARTÍNEZ Administration Morphine Sulfate 15 mg 06/29/21 09:00 06/30/21 09:28 Morphine Er (12 Hr) 15 Mg Tablet PO 15 mg BID MARTÍNEZ Administration Oxycodone/Acetaminophen 1 tab 06/28/21 20:39 06/30/21 14:55 Oxycodone-Apap 5-325 Mg Tablet PO 1 tab Q4H PRN Administration MODERATE PAIN Pantoprazole Sodium 40 mg 06/27/21 09:00 06/30/21 09:[address] 40 Mg Tablet PO 40 mg DAILY MARTÍNEZ Administration Potassium Phosphate 250 mg 06/28/21 21:00 06/30/21 14:55 Phosphorus 250 Mg Tablet PO 250 mg TID MARTÍNEZ Administration PFSH Acute PFSH: Medical History Acid reflux Adrenal insufficiency Anxiety about health Aspiration pneumonia BPH loc w urin obs/LUTS Chronic use of steroids Compression fracture of T11 vertebra Compression fx, thoracic spine Constipation, slow transit COPD (chronic obstructive pulmonary disease) Elevated PSA Essential (primary) hypertension Fracture, thoracic vertebra, compression H/O colon cancer, stage III Lumbar compression fracture Lung cancer Mediastinal lymphadenopathy Nocturia Prostate CA Rectal cancer Sarcoidosis Shock Small bowel obstruction Urinary retention Urinary urgency Surgical History History of liver biopsy / Percutaneous abscess drainage Port-A-Cath in place S/P colon resection 2016 ([place]) -- sigmoid resection for colon cancer / cholecystectomy / incidental appendectomy / umbilical hernia repair S/P small bowel resection (05/18/21) For small bowel obstruction Family History Mother , 62 CAD (coronary artery disease) Diabetes Father , 74 Cancer Colon Social History Smoking and tobacco status: current every day smoker cigarettes Packs smoked per day: 1 Years cigarettes smoked: 45 [ Other cigarette details: currently down to half pack or so] Quit status (tobacco): has tried quititng Second hand smoke exposure: Yes Smoking risk assessment/counseling performed?: No Alcohol intake: never Desire information about alcohol rehabilitation?: No Counseling given: No Desire information about substance/drug rehabilitation?: No Counseling given: No Adopted: No Caregiver/support person: No Lives independently: Yes Household members: none Housing: House Marital status: Current occupational status: retired History of recent travel: No Current gender identity: Male Vitals/I&O/Wt Last Vital Signs Temp 98.2 F 06/30/21 15:34 Pulse 94 06/30/21 15:34 Resp 18 06/30/21 15:34 BP 131/84 06/30/21 15:34 Pulse Ox 94 06/30/21 15:34 06/30/21 06/30/21 06/30/21 06:59 14:59 22:59 Intake Total 200 / 1510 540 / 540 Output Total 250 / 1125 200 / 200 Balance -50 / 385 340 / 340 Physical Exam Narrative: Pt was seen via telemedicine. He appeared comfortable with minimal sob with talking. Per RN who say pt earlier, she said his breathing was much b jessy with talking. skin was thin typical bruising from hospital stay, iv's etc. Abd was a bit distended in lower abdomen. Scars from surgery were healing clean, dry and intact. Legs had +1 pedal edema which is reportedly much improved from admission Data : 06/30/21 04:22 06/30/21 04:22 CTA Chest: Radiologist's impression: growth of right suprahilar mass invading distal right mainstem bronchus, right upper obe bronchus and bronchus intermedus atelectasis or pneumonia post this obstruction 2 NEW lesions consistent with metastatic disease in right lung A&P Assessment and plan (1) 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: Invading distal right mainstem bronchus, right upper lobe bronchus and bronchus intermedus Per oncoology - not able to offer chemotherapy due to poor performance status. Recommend comfort measures only and hospice benefit. While son agrees to comfort measures pt still believes he will beat it . I was asked not to discuss prognosis or hospice with pt. I informed both pt and son that the resusiciation procedure would not be done due to severity of illness and no benefit, thus pt's code status is now DNR or allow natural . Status: Acute (2) Small intestine cancer: New Resection 05/2021 Status: Acute (3) Compression fracture of body of thoracic vertebra: Has had 3 reparied ; 2 remain. Not currently stable to proceed due to significant hypoxia. Status: Acute (4) Adrenal insufficiency: BP returned to normal. Recommend weaning off IV steroids and resuming oral Status: Acute (5) Pneumonia: Post obstructive. Not curable. Recommend stopping antibiotics. Status: Acute (6) Thoracic back pain: Improved on MS contin and oxycodone. Changed to roxinol to also help with symptom managment Status: Acute (7) Pain: as above Status: Acute Plan DPOA/living will. Yes, Pt has DPOA: Olesya his son. [phone]. No living will completed. Understanding of illness: poor; mixed up his different cancers and does not understand or believe or won't listen to anyone other than his oncologist about the progression of disease in this lungs. Symptoms: Pain: improved on long acting ms contin and roxinal. Would recommend goal of pain at rest 3 or less and with activity 5 or less. Adjust/increase as necessary to maintain this goal. SOB: improved on roxanol today Nausea: denies, zofran prn constipation: last BM 06/28. Will add Bowel regimen Coding Level of Care Code Acute Manager Agricultural for Chg Fwd Diagnoses 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 C20; C78.00 Small intestine cancer C17.9 Compression fracture of body of thoracic vertebra S22.000A Adrenal insufficiency E27.40 Pneumonia J18.9 Thoracic back pain M54.6 Pain R52
--- NOTE | 2021-06-30 16:16 | PM.PN ---
Subjective Subjective: He overall is doing slightly better, but gets dyspneic with exertion. Coughing. Denies chest pain. Vitals/I&O/Wt Last Vital Signs Temp 98.2 F 06/30/21 15:34 Pulse 101 H 06/30/21 16:13 Resp 16 06/30/21 15:48 BP 131/84 06/30/21 15:34 Pulse Ox 95 06/30/21 15:48 06/30/21 06/30/21 06/30/21 06:59 14:59 22:59 Intake Total 200 / 1510 540 / 540 Output Total 250 / 1125 200 / 200 Balance -50 / 385 340 / 340 Physical Exam Const: COMMON NORMALS: no acute distress and patient oriented x3 OTHER: Very [place] [employer] [place] H[employer]MT: COMMON NORMALS: oropharynx normal Neck/C-Spine: COMMON NORMALS: no JVD Resp: COMMON NORMALS: normal respiratory effort AUSCULTATION: diminished lung sounds bilateral in the lower lung sylvester Cardio: COMMON NORMALS: no JVD, regular rhythm, S1 normal heart sound present, S2 normal heart sound present and No murmurs present (Cardio) RHYTHM: regular rhythm HEART SOUNDS: S1 normal heart sound present and S2 normal heart sound present GI: COMMON NORMALS: Normal to inspection, nondistended, normoactive bowel sounds present, Soft to palpation and non-tender PALPATION: Yes Soft to palpation Extremity: COMMON NORMALS: no joint enlargement GENERAL: Yes edema (2+ ankles) Neuro: COMMON NORMALS: patient oriented x3 and moves all extremities Skin: COMMON NORMALS: no rashes or lesions noted GENERAL SKIN EXAM: no rashes or lesions noted Data : 06/30/21 04:22 06/30/21 04:22 A&P Assessment and plan (1) Acute on chronic respiratory failure with hypoxia and hypercapnia: Broadened antibiotics on 06/29, switched over to Zosyn. Continue vancomycin. Today oxygenation appears to be improving, down to 3 L nasal cannula oxygen. In case he is absolutely intent on pursuing more aggressive intervention consider [place] base with radiation oncology to discuss whether palliative radiation to help alleviate obstruction to help resolve pneumonia is an option at all. This would not be likely to need alter his long-term prognosis given metastatic cancer, if only providing some palliation from his current respiratory symptoms. Otherwise would continue expectant management with antibiotic, reassessment, and continued revisiting her goals of care. Chest x-ray with noted development of patchy right lower lobe pulmonary opacity representing probable pneumonia, atelectasis and right pleural effusion. Status: Acute (2) Adrenal insufficiency: Transition to prednisone and taper. Status: Acute (3) Pneumonia: As above Status: Acute (4) Sepsis: Sepsis resolved Status: Acute (5) Acute on chronic congestive heart failure: With mild improvement in ankle edema. Acute diastolic CHF. Resumed Lasix 20 mg IV, monitor I&O. Reassess volume status. Status: Acute (6) Acute non-ST elevation myocardial infarction (NSTEMI): Status: Acute (7) COPD (chronic obstructive pulmonary disease): Status: Acute Qualifiers: COPD type: unspecified COPD Qualified Code(s): J44.9 - Chronic obstructive pulmonary disease, unspecified (8) H/O colon cancer, stage III: Metastatic. Also additional malignancy of small intestine, second primary. Appreciate palliative care consultation. Continue discussions of goals of care. 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 Status: Acute (10) Compression fracture of body of thoracic vertebra: Status: Acute Plan Oswaldo Khan is a 75 year old male with a past medical history of invasive adenocarcinoma of the upper rectum, status post chemotherapy, with evidence of pulmonary nodules consistent with metastatic disease, multiple hypermetabolic mediastinal lymph nodes consistent with metastatic disease status post chemotherapy, however review of notes show mixed response, last palliative chemotherapy in early December 2020, since then due to declining performance status and chronic back pain and compression fractures and kyphoplasty, chemotherapy was on hold, there was discussions of hospice, but lost to follow-up, recent history of pneumatosis Coli underwent exploratory laparotomy for small bowel mass, positive for small bowel adenocarcinoma, secondary primary cancer, history of bilateral subsegmental pulmonary emboli on Eliquis, pulmonary sarcoidosis, deconditioning, protein calorie malnutrition, history of adrenal insufficiency on chronic steroids, history of vertebral compression fractures, history of diastolic CHF, who presents to [facility] due to altered mental status, and shortness of breath. History of adenocarcinoma the upper rectum, with metastasis to the lung, last palliative chemotherapy was in December 2020, there was discussions on hospice, lost to follow-up Recent hospitalization for small bowel adenocarcinoma, secondary primary cancer, Disposition: Given the poor functional status of the patient, and continued worsening, family is interested in long-term placement. Attestations Medical Necessity Statement*: Continue admission for assessment of management of pneumonia with postobstructive component from metastatic malignancy, hypoxia, transition off IV stress dose steroids. Continue disposition planning and arrangements. Coding Level of Care Code Acute Crisis Worker for [place] Fwd Exam Comprehensive Diagnoses Small intestine cancer C17.9 Compression fracture of body of thoracic vertebra S22.000A Adrenal insufficiency E27.40 Pneumonia J18.9 Acute on chronic respiratory failure with hypoxia and hypercapnia J96.21; J96.22 Sepsis A41.9 Acute on chronic congestive heart failure I50.9 Acute non-ST elevation myocardial infarction (NSTEMI) I21.4 COPD (chronic obstructive pulmonary disease) J44.9 COPD type: unspecified COPD H/O colon cancer, stage III Z85.038
[2021-06-30] MEDS: polyethylene glycol 3350 Pkt 17 gm PO (17:55)
[2021-06-30] MEDS: magnesium hydroxide 30 mL UDC PO (17:56)
[2021-06-30] MEDS: predniSONE 10 mg Tablet PO (17:57)
[2021-06-30] MEDS: atorvastatin 40 mg Tablet PO (20:05)
[2021-07-01] VITALS (11 sets, daily range): BP systolic 126–149; BP diastolic 69–83; PULSE 62–110; RESP 16–18; TEMP 36.6–36.9; O2SAT 91–97
[2021-07-01] MEDS: piperacillin-tazobactam 3.375 GM in sodium chloride 0.9% (plus) 50 ML IV ×2 (00:57→08:46)
[2021-07-01 05:03] LABS: Basophils % 0.2 %; Hematocrit 30.7 % (42.0-52.0); Hemoglobin 9.7 g/dL (11.7-16.6); Lymphocytes # 1.2 10^3/uL (0.8-4.8); Lymphocytes % 9.7 %; Mean Corpuscular HGB Conc 31.6 g/dL (30.0-36.0); Mean Corpuscular Hemoglobin 28.4 pg (28.0-34.0); Mean Corpuscular Volume 89.8 fl (80-94); Mean Platelet Volume 9.7 fL (7.4-10.4); Monocytes # 0.6 10^3/uL (0.2-0.9); Monocytes % 5.3 %; Neutrophils # 10.25 10^3/uL (1.8-7.7); Neutrophils % 84.3 %; Nucleated Red Blood Cells % 0 %; Platelet Count 295 10^3/cmm (130-400); Red Blood Count 3.42 10^6/uL (4.1-5.3); Red Cell Distribution Width 17.8 % (12.1-15.1); White Blood Count 12.2 10^3/uL (4.0-10.0)
[2021-07-01 05:29] LABS: Anion Gap 11.4 (5-19); Blood Urea Nitrogen 24 mg/dL (8-23); Calcium 8.6 mg/dL (8.5-10.5); Carbon Dioxide 31 mmol/L (22-29); Chloride 104 mmol/L (98-107); Creatinine Clr Calc Pharmacy 68.5832; Glucose 129 mg/dL (65-115); Osmolality Calculated 300 mOsm/kg (285-295); Potassium 4.4 mmol/L (3.5-5.1); Sodium 142 mmol/L (136-145)
[2021-07-01] MEDS: vancomycin 1,000 MG in sodium chloride 0.9% 250 ML 250 MG IV (05:36)
[2021-07-01] MEDS: midodrine 5 mg TABLET 10 MG PO (05:40)
[2021-07-01] MEDS: budesonide 0.5 mg/2 mL Neb INHALATION (07:49)
[2021-07-01] MEDS: ipratropium-albuterol 3 mL Neb INHALATION ×2 (07:49→10:59)
--- NOTE | 2021-07-01 08:12 | XR_ITS ---
WS: [id number] Exam: XR chest 1V portable [id number] Date/Time of Exam: 07/01/2021 6:05 AM Reason For Exam: hypoxia, pna Comparison 06/28/2021. Development of large right-sided pleural effusion with significant compressive atelectasis of the rig ht lung. There is infiltrate in the ventilated portion of the right lung. The left lung remains clear and fully expanded. Heart size is top limits normal. Widening of the mediastinum. Right IJ catheter appears to end in the region of the right atrium. Signs of kyphoplasty involving several thoracic jennifer tebra. Recommendations: Consider a further workup with CT scanning of the chest with intravenous contrast. XR/XR chest 1V portable [id number] IMPRESSION: 1. Development of the large right pleural effusion with significant compressive atelectasis of the right lung since the prior study. There is infiltrate noted in the ventilated portion of the right lung. 2. There appears to be significant interval widening of the superior mediastinu m since prior study.
[2021-07-01] MEDS: pantoprazole DR 40 mg Tablet PO (08:45)
[2021-07-01] MEDS: CELEcoxib 200 mg Capsule PO (08:45)
[2021-07-01] MEDS: sennosides-docusate Tablet 1 TAB PO (08:45)
[2021-07-01] MEDS: enoxaparin 60 mg/0.6 mL Syringe SUBCUT (08:45)
[2021-07-01] MEDS: morphine ER (12 HR) 15 mg Tablet PO (08:46)
[2021-07-01] MEDS: phosphorus 250 mg Tablet PO (08:46)
[2021-07-01] MEDS: aspirin 81 mg EC Tablet PO (08:46)
[2021-07-01] MEDS: predniSONE 10 mg Tablet PO (08:46)
[2021-07-01] MEDS: FUROsemide 10 mg/mL SDV 2mL 20 MG IVP (10:21)
[2021-07-01] MEDS: polyethylene glycol 3350 Pkt 17 gm PO (10:46)
[2021-07-01] MEDS: oxyCODONE-APAP 5-325 mg Tablet 1 TAB PO (10:51)
[2021-07-01 11:22] LABS: SARS Covid-2 Antigen Negative (Negative)
--- NOTE | 2021-07-01 13:08 | P.DS_ITS ---
Discharge Providers Date of Admission: 06/25/21 23:09 Date of Discharge: July 01, 2021 Attending Provider at Admission: Patricio Carbajal MD Attending Provider at Discharge: Zenobia Staton MD Primary Care Provider: Tamika Chavis MD Diagnoses at Discharge Discharge Diagnosis (1) Acute on chronic respiratory failure with hypoxia and hypercapnia: Status: Acute (2) Acute on chronic congestive heart failure: Status: Acute Qualifiers: Heart failure type: diastolic Qualified Code(s): I50.33 - Acute on chronic diastolic (congestive) heart failure (3) Acute non-ST elevation myocardial infarction (NSTEMI): Details from hospital stay: Type II process Status: Acute (4) Pneumonia: Status: Resolved Qualifiers: Pneumonia type: due to unspecified organism Laterality: right Lung location: lower lobe of lung Qualified Code(s): J18.9 - Pneumonia, unspecified organism Permanent problem details: Post obstructive (5) Sepsis: Status: Resolved Qualifiers: Sepsis type: sepsis due to unspecified organism Sepsis acute organ dysfunction status: with acute organ dysfunction Severe sepsis acute organ dysfunction type: encephalopathy Severe sepsis shock status: without septic shock Qualified Code(s): A41.9 - Sepsis, unspecified organism; R65.20 - Severe sepsis without septic shock; G93.40 - Encephalopathy, unspecified (6) 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: Status: Chronic (7) Small intestine cancer: Status: Chronic (8) Thoracic back pain: Status: Chronic Qualifiers: Chronicity: acute Back pain laterality: bilateral Qualified Code(s): M54.6 - Pain in thoracic spine (9) Compression fracture of body of thoracic vertebra: Status: Acute (10) Adrenal insufficiency: Status: Chronic (11) History of pulmonary embolus (PE): Status: Chronic (12) Hard of hearing: Status: Chronic Reason for Visit Reason for Visit: SOB/WHEEZING Brief History: From H&P by Dr Carbajal: Oswaldo Khan is a 75 year old male with a past medical history of invasive adenocarcinoma of the upper rectum, status post chemotherapy, with evidence of pulmonary nodules consistent with metastatic disease, multiple hypermetabolic mediastinal lymph nodes consistent with metastatic disease status post chemotherapy, however review of notes show mixed response, last palliative chemotherapy in early December 2020, since then due to declining performance status and chronic back pain and compression fractures and kyphoplasty, chemotherapy was on hold, there was discussions of hospice, but lost to follow- up,? recent history of pneumatosis Coli underwent exploratory laparotomy for small bowel mass, positive for small bowel adenocarcinoma, secondary primary cancer, history of bilateral subsegmental pulmonary emboli on Eliquis, pulmonary sarcoidosis, deconditioning, protein calorie malnutrition, history of adrenal insufficiency on chronic steroids, history of vertebral compression fractures, history of diastolic CHF, who presents to [facility] due to altered mental status, and shortness of breath.? Currently patient is alert to person, not to place, not to time.? Currently on BiPAP.? He is quite hard of hearing, does not follow commands, is confused.? The only history that I was able to obtain for patient is that he has been feeling weak, he tells me his legs feel weak, does report chest pain, does report shortness of breath, does report a cough, denies fevers. In the emergency room patient was found to have positive troponins, positive delta, EKG no acute ST-T wave changes, was given Lovenox, was also found to have postobstructive pneumonia, placed on BiPAP, even Zosyn, also given his history of adrenal insufficiency, and low blood pressures, he was given hydrocortisone loading dose.? During my examination, blood pressures are in the 100s over 60s, heart rates in the 110s, sinus tachycardia, on 40% BiPAP, no evidence of respiratory distress. Hospital Course Hospital Course Patient was admitted initially to the ICU. He was continued on BiPAP therapy and covered with broad-spectrum antibiotics to include vancomycin, Zosyn and Levaquin. He also received stress dose steroids due to hypotension. Significantly improved by the next day and was able to be moved to the floor. Given comorbid issues including 2 different primary malignancies and evidence of metastases, palliative care consultation was obtained. Comfort care was recommended and ultimately disposition was arranged for skilled placement with end-of-life care and focus on symptom control and maximizing the time that he has left. Patient and son were were agreeable with plans. There was no role for radiation therapy or other focus cancer treatment at this point in time given advanced state and poor functional status. Antibiotics will not be continued at discharge. Stopped other medicines that do not provide an element of comfort. I did continue midodrine currently given hypotension and need for pain control although consideration can be given to discontinuation of this when patient and family are ready. Recommendation is for not returning to the hospital from palliative care standpoint. Medications have been adjusted to include long-acting morphine and Roxanol in addition to as needed's. Will continue scheduled stool softeners. I reviewed plans with patient son Olesya who can be reached at [phone] as well as with patient prior to discharge. Both were given an opportunity to ask questions. Pain goal of 3 or less and with activity 5 or less is recommended. Physical Exam Narrative: Patient is awake and alert, hard of hearing but cooperative when he understands. Answers questions that he hears. Lungs are presently clear, regular rhythm abdomen is soft. He has scattered bruising most notably at the arms and some scratches to his lower extremities. Discharge Data Studies Completed and Pending Completed Studies During Hospitalization Category Date Time Status CT abdomen pelvis wo con [id number] Urgent Cat Scan 06/25/21 23:[address] head wo con* [id number] Urgent Cat Scan 06/25/21 16:58 Completed CTA chest [CT angio chest PE protcl [id number]] Urgent Cat Scan 06/25/21 16:58 Completed CXRP [XR chest 1V portable [id number]] Routine Exams 06/28/21 13:28 Completed CXRP [XR chest 1V portable [id number]] Routine Exams 07/01/21 08:12 Completed XR KUB portable [id number] Stat Exams 06/25/21 20:24 Completed XR chest 1V portable [id number] Stat Exams 06/26/21 17:50 Completed XR chest 1V portable [id number] Urgent Exams 06/25/21 15:51 Completed XR chest 1V portable [id number] Urgent Exams 06/25/21 22:34 Completed CV. echo complete* [id number] Routine Ultrasound 06/26/21 Completed US venous duplex lower extremity bilat [CV venous Ultrasound 06/25/21 23:09 [place] [id number]] Urgent Pending at discharge Category Date Time Status Sputum Culture and Gram Stain Stat Lab 06/25/21 20:24 Uncollected Vancomycin Trough Timed Lab 07/01/21 12:43 Received Radiology Impressions Chest CTA 06/25/21 16:58 IMPRESSION: 1. Interval development of mucous plugging in the right lower lobe bronchus extending into multiple segmental and subsegmental bronchi in the right lower lobe. There is also interval development of patchy atelectasis versus pneumonia in the right lower lobe. Recommend followup chest imaging to insure resolution of these findings. 2. No evidence for pulmonary embolism. 3. Increase in size of a right suprahilar mass invading the distal right mainstem bronchus, right upper lobe bronchus, and bronchus intermedius. 4. Findings concerning for worsening metastatic disease with increase in size of multiple pulmonary nodules and 2 new nodules in the right lower lobe. Fleischner Society follow up recommendations for incidental nodules are not indicated. Follow up per the patient's medical condition. 5. Incidental/nonacute findings are listed in the report. Head CT 06/25/21 16:58 IMPRESSION: No acute intracranial abnormality. KUB X-Ray 06/25/21 20:24 IMPRESSION: Mild intestinal flatus and possible constipation. No definite obstruction. Abdomen/Pelvis CT 06/25/21 23:09 IMPRESSION: 1. No acute abnormality is seen in the abdomen or pelvis. No intestinal obstruction. 2. Possible contrast nephropathy. 3. Prostatomegaly. 4. Atherosclerosis and mild ectasia of the infrarenal abdominal aorta. Venous Duplex 06/25/21 23:09 IMPRESSION: No DVT is seen on the images provided. Mild bilateral lower extremity edema. Chest X-Ray 07/01/21 08:12 IMPRESSION: 1. Development of the large right pleural effusion with significant compressive atelectasis of the right lung since the prior study. There is infiltrate noted in the ventilated portion of the right lung. 2. There appears to be significant interval widening of the superior mediastinum since prior study. Laboratory Results WBC 12.2 10^3/uL (4.0-10.0) H 07/01/21 04:45 RBC 3.42 10^6/uL (4.1-5.3) L 07/01/21 04:45 Hgb 9.7 g/dL (11.7-16.6) L 07/01/21 04:45 Hct 30.7 % (42.0-52.0) L 07/01/21 04:45 MCV 89.8 fl (80-94) 07/01/21 04:45 MCH 28.4 pg (28.0-34.0) 07/01/21 04:45 MCHC 31.6 g/dL (30.0-36.0) 07/01/21 04:45 RDW 17.8 % (12.1-15.1) H 07/01/21 04:45 Plt Count 295 10^3/cmm (130-400) 07/01/21 04:45 MPV 9.7 fL (7.4-10.4) 07/01/21 04:45 Neut % (Auto) 84.3 % 07/01/21 04:45 Lymph % (Auto) 9.7 % 07/01/21 04:45 [place] % (Auto) 5.3 % 07/01/21 04:45 Eos % (Auto) 0.0 % 07/01/21 04:45 Baso % (Auto) 0.2 % 07/01/21 04:45 Neut # (Auto) 10.25 10^3/uL (1.8-7.7) H 07/01/21 04:45 Lymph # (Auto) 1.2 10^3/uL (0.8-4.8) 07/01/21 04:45 [place] # (Auto) 0.6 10^3/uL (0.2-0.9) 07/01/21 04:45 Eos # (Auto) 0.0 10^3/uL (0.0-0.8) 07/01/21 04:45 Baso # (Auto) 0.0 10^3/uL (0.0-0.1) 07/01/21 04:45 Nucleated RBC % (auto) 0 % 07/01/21 04:45 Nucleated RBCs # 0.0 /100WBC 07/01/21 04:45 PT 14.30 SECONDS (12.1-14.9) 06/28/21 03:39 INR 1.08 (0.8-1.2) 06/28/21 03:39 D-Dimer 1.06 ug/mIFEU (0-0.59) H 06/25/21 16:00 Specimen Type Arterial 06/26/21 05:13 Sample Site Radial, left 06/26/21 05:13 ABG pH 7.44 (7.35-7.45) 06/26/21 05:13 ABG pCO2 40.9 mmHg (35-45) 06/26/21 05:13 ABG pO2 68.1 mmHg (80.0-100.0) L 06/26/21 05:13 ABG HCO3 27.8 mmol/L (22-26) H 06/26/21 05:13 ABG Base Excess 3.4 mmol/L (-2.0-2.0) H 06/26/21 05:13 Solitario Test Pos 06/26/21 05:13 Hematocrit 30.2 % (42-52) L 06/26/21 05:13 O2 Delivery Device Bipap 06/26/21 05:13 O2 Liters/Min 3.0 % 06/25/21 16:26 FiO2 40.0 % 06/26/21 05:13 [employer] ID Get 06/26/21 05:13 Blood Gas Notified Time 1645 06/25/21 16:26 Sodium 142 mmol/L (136-145) 07/01/21 04:45 Potassium 4.4 mmol/L (3.5-5.1) 07/01/21 04:45 Chloride 104 mmol/L (98-107) 07/01/21 04:45 Carbon Dioxide 31 mmol/L (22-29) H 07/01/21 04:45 Anion Gap 11.4 (5-19) 07/01/21 04:45 BUN 24 mg/dL (8-23) H 07/01/21 04:45 Creatinine 0.9 mg/dL (0.7-1.2) 07/01/21 04:45 GFR Calculation Not Reportable 07/01/21 04:45 Glucose 129 mg/dL (65-115) H 07/01/21 04:45 Estimat Average Glucose 97 06/26/21 05:42 Hemoglobin A1c 5.0 % (4.0-6.0) 06/26/21 05:42 Calculated Osmolality 300 mOsm/kg (285-295) H 07/01/21 04:45 Lactic Acid 1.9 mmol/L (0.5-2.2) 06/25/21 16:00 Lactate 1.4 mmol/L (0.5-2.2) 06/28/21 03:39 Calcium 8.6 mg/dL (8.5-10.5) 07/01/21 04:45 Phosphorus 1.6 mg/dL (2.5-4.5) L 06/28/21 03:39 Magnesium 1.4 mg/dL (1.7-2.3) L 06/28/21 03:39 Total Bilirubin 0.2 mg/dL (0.15-1.2) 06/28/21 03:39 AST 18 U/L (0-40) 06/28/21 03:39 ALT 13 U/L (0-41) 06/28/21 03:39 Alkaline Phosphatase 117 IU/L (40-130) 06/28/21 03:39 Troponin T Gen 5 ng/L 126 ng/L (0-15) H* 06/26/21 05:42 Troponin T Baseline 154 ng/L (0-15) H* 06/25/21 16:00 Troponin T 120 Minute 183.6 ng/L (0-15) H 06/25/21 18:15 Delta Troponin T 29.6 ABS# (0-10) H* 06/25/21 18:15 Troponin T Hi Sens 6Hr 184.0 ng/L (0-15) H 06/25/21 20:52 Troponin T Hi Sens 6Hr Delta 30.0 ng/L (0-12) H* 06/25/21 20:52 C-Reactive Protein 26.3 mg/L (0.0-4.9) H 06/28/21 03:39 NT-Pro-B Natriuret Pep 5013 pg/mL (0-125) H 06/26/21 05:42 Total Protein 5.4 g/dL (6.6-8.7) L 06/28/21 03:39 Albumin 3.1 g/dL (3.5-5.2) L 06/28/21 03:39 Globulin 2.3 g/dL (1.3-4.6) 06/28/21 03:39 Triglycerides 81 mg/dL (0-150) 06/26/21 05:42 Cholesterol 110 mg/dL (0-200) 06/26/21 05:42 LDL Cholesterol, Calc 52 mg/dL (50-129) 06/26/21 05:42 HDL Cholesterol 42 mg/dL (60-100) L 06/26/21 05:42 LDL/HDL Ratio 1.24 RATIO (0.00-3.22) 06/26/21 05:42 Cholesterol/HDL Ratio 2.62 mg/dL (1.0-5.00) 06/26/21 05:42 Procalcitonin 0.06 ng/mL (0-0.5) 06/28/21 03:39 TSH 0.93 uIU/mL (0.27-4.20) 06/25/21 18:15 Vancomycin Trough 15.3 ug/mL (10-15) H 06/28/21 21:12 Coronavirus 229E (PCR) Not detected (NOT DETECT) 06/25/21 18:38 SARS-CoV-2 (PCR) Not detected (NOT DETECT) 06/25/21 18:38 SARS-CoV-2 Ag (Rapid) Negative (Negative) 07/01/21 Unknown Vitals Last Vital Signs Temp 97.8 F 07/01/21 11:29 Pulse 99 07/01/21 11:29 Resp 18 07/01/21 11:29 BP 126/75 07/01/21 11:29 Pulse Ox 91 07/01/21 11:29 Discharge Plan Discharge Patient Disposition: Xfer SNF Condition: Stable Prescriptions: New lorazepam 0.5 mg Tablet 0.5 mg PO TID PRN (Reason: Anxiety) Qty: 30 0RF morphine 15 mg Tablet Extended Release 15 mg PO BID Qty: 60 0RF morphine concentrate 10 mg/0.5 mL Syringe 10 mg PO Q4H PRN (Reason: resp distress/pain and unable to take other meds) Qty: 20 0RF budesonide 0.5 mg/2 mL Suspension For Nebulization 0.5 mg inhalation BID.RESPIRATORY Qty: 60 0RF ipratropium-albuterol 0.5 mg-3 mg(2.5 mg base)/3 mL Solution For Nebulization 3 ml inhalation QID.RESPIRATORY Qty: 120 0RF midodrine 5 mg Tablet 5 mg PO Q8H Qty: 90 0RF albuterol sulfate 2.5 mg/0.5 mL Solution For Nebulization 2.5 mg inhalation Q4H.RESPIRATORY PRN (Reason: Shortness Of Breath) Qty: 100 0RF celecoxib 200 mg Capsule 200 mg PO Q12H Qty: 60 0RF prednisone 10 mg Tablet 10 mg PO BID Qty: 60 0RF acetaminophen 325 mg Tablet 650 mg PO Q6H PRN (Reason: Mild/Mod Pain Or Temp >/= 101) Qty: 60 0RF polyethylene glycol 3350 17 gram Powder In Packet 17 g PO BID Qty: 60 0RF Continued (DME) miscellaneous medical supply Misc See Rx Instructions .Route Qty: 1 0RF Rx Instructions: HOSPITAL BED WITH TRAPEZE BAR oxycodone 5 mg capsule 5 mg PO Q6H PRN (Reason: Pain) Qty: 60 0RF magnesium hydroxide [Milk of Magnesia] 400 mg/5 mL suspension 30 ml PO BID PRN (Reason: constipation) Qty: 400 0RF pantoprazole [Protonix] 40 mg tablet,delayed release (DR/EC) 40 mg PO DAILY Qty: 30 2RF megestrol 20 mg tablet 20 mg PO BID Qty: 60 0RF tamsulosin 0.4 mg capsule 0.4 mg PO BEDTIME Qty: 30 0RF docusate sodium [Stool Softener] 100 mg Capsule 100 mg PO BEDTIME PRN (Reason: Constipation) Qty: 30 0RF ondansetron 4 mg tablet,disintegrating 4 mg PO TID PRN (Reason: nausea and vomiting) Qty: 15 0RF albuterol sulfate 90 mcg/actuation HFA aerosol inhaler 2 puff inhalation Q6H PRN (Reason: pts friend alex states the pt has been out of t) Qty: 1 0RF mirtazapine 15 mg tablet,disintegrating 15 mg PO BEDTIME Qty: 30 0RF lactulose 10 gram packet 10 g PO DAILY PRN (Reason: constipation) Qty: 15 0RF duloxetine 20 mg capsule,delayed release(DR/EC) 20 mg PO DAILY Qty: 30 0RF Changed sennosides-docusate sodium [Senna-S] 8.6-50 mg tablet 1 tab-cap PO BID Qty: 60 0RF Discontinued Spiriva Respimat 1.25 mcg/actuation mist 1 puff inhalation DAILY 0RF Stiolto Respimat 2.5-2.5 mcg/actuation mist 2 puff inhalation DAILY 0RF magnesium 200 mg tablet 200 mg PO DAILY Qty: 20 0RF prednisone 20 mg tablet 20 mg PO DAILY 0RF capecitabine [Xeloda] 500 mg tablet See Rx Instructions .ROUTE .COMPLEX 0RF Rx Instructions: 1,000mg po bid for 14 days then off for 7 days for a 21 day cycle hydrocodone-acetaminophen 5-325 mg tablet 1 tab PO Q6H PRN (Reason: pain) Qty: 15 0RF Triple Magnesium Complex 400 mg magnesium Capsule 400 mg PO DAILY 0RF lisinopril 40 mg tablet 40 mg PO DAILY 0RF Discharge Orders: Discharge Order (Routine); Ordered 07/01/21 Ordered By: Zenobia Staton Referrals: Tamika Chavis MD [Primary Care Provider] - 7-10 days Paula Singh MD [Staff Physician] - 7-10 days Discharge Diet: Usual diet Discharge Activity: As per PT/OT instructions Activity Restrictions/Additional Instructions: Allow Natural Comfort care focus Oxygen therapy Discharge Attestations Time Spent in Discharge Care*: greater than 30 min Specific Discharge Activities: educating patient, educating and/or supporting family/caregiver, discussing with disability case manager/social workers/dc planners, documenting/other paperwork and evaluating patient/reviewing data Status at Discharge: Cognitive status at discharge: cognitively intact , Behavioral status at discharge: cooperative , Functional status at discharge: other assisted ambulation , Overall status at discharge: patient is not back to baseline Quality Metrics Clinical Quality Measures [ Acute Myocardial Infaction { Clinical Trial Participant: No; Contraindication to aspirin: None; Aspirin prescribed (given in hospital, not at discharge due to comfort care plan); Contraindication to statin: None; Statin prescribed (given in hospital, not at discharge due to comfort care plan);}] Coding Level of Care Code Acute g FW DC note Diagnoses 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 C20; C78.00 Small intestine cancer C17.9 Compression fracture of body of thoracic vertebra S22.000A Adrenal insufficiency E27.40 Pneumonia J18.9 Pneumonia type: due to unspecified organism Laterality: right Lung location: lower lobe of lung Thoracic back pain M54.6 Chronicity: acute Back pain laterality: bilateral Acute on chronic respiratory failure with hypoxia and hypercapnia J96.21; J96.22 Acute on chronic congestive heart failure I50.33 Heart failure type: diastolic Acute non-ST elevation myocardial infarction (NSTEMI) I21.4 Sepsis A41.9; R65.20; G93.40 Sepsis type: sepsis due to unspecified organism Sepsis acute organ dysfunction status: with acute organ dysfunction Severe sepsis acute organ dysfunction type: encephalopathy Severe sepsis shock status: without septic shock History of pulmonary embolus (PE) Z86.711 Hard of hearing H91.90
[2021-07-01] MEDS: ondansetron 4 MG Tablet PO (13:32)
--- NOTE | 2021-07-01 13:56 | PC.NURSE ---
Removed central line from patient's right neck. 2x2 applied and tegaderm applied. Patient tolerated well.
[2021-07-01 14:00] LABS: Vancomycin Trough 40.3 ug/mL (10-15)
--- NOTE | 2021-07-01 14:46 | PC.NURSE ---
Called and gave report to ROYAL Hernández at [facility].
== END 2021-07-01 15:50 | disposition skilled nursing facility (03) | DRG 871 ==
LOC: ER 20:10 → ICU 22:37 → MEDSURG 06-28 02:34
PROVIDERS: Internal Medicine; Admitting Provider Family Medicine; Emergency Provider Emergency Medicine; PCP Family Medicine; Visit Provider Hospitalist
DX: A41.9 Sepsis, unspecified organism (principal); I21.A1 Myocardial infarction type 2; J18.9 Pneumonia, unspecified organism; J96.22 Acute and chronic respiratory failure with hypercapnia; J96.21 Acute and chronic respiratory failure with hypoxia; G93.41 Metabolic encephalopathy; I50.33 Acute on chronic diastolic (congestive) heart failure; C20 Malignant neoplasm of rectum; C78.1 Secondary malignant neoplasm of mediastinum; C78.00 Secondary malignant neoplasm of unspecified lung; C17.9 Malignant neoplasm of small intestine, unspecified; J44.0 Chronic obstructive pulmonary disease with (acute) lower respiratory infection; E27.40 Unspecified adrenocortical insufficiency; E46 Unspecified protein-calorie malnutrition; R65.20 Severe sepsis without septic shock; Z87.01 Personal history of pneumonia (recurrent); Z79.52 Long term (current) use of systemic steroids; Z90.49 Acquired absence of other specified parts of digestive tract; F17.210 Nicotine dependence, cigarettes, uncomplicated; Z92.21 Personal history of antineoplastic chemotherapy; G89.29 Other chronic pain; M54.6 Pain in thoracic spine; Z86.711 Personal history of pulmonary embolism; Z79.51 Long term (current) use of inhaled steroids; Z79.891 Long term (current) use of opiate analgesic; I95.9 Hypotension, unspecified; I11.0 Hypertensive heart disease with heart failure; Z68.23 Body mass index [BMI] 23.0-23.9, adult
CPT/HCPCS: 31500; 36415; 36592; 36600; 70450; 71045; 71275; 74018; 74176; 80048; 80053; 80061; 80202; 82803; 83036; 83605; 83735; 83880; 84100; 84145; 84443; 84484; 85025; 85378; 85610; 86140; 87040; 87426; 87635; 87641; 93005; 93306; 93970; 94640; 94660; 94664; 94669; 96365; 96372; 96375; 97110; 97162; 97167; 97530; 97535; 99285; C9113; J0696; J1650; J1720; J1940; J1956; J2250; J2543; J3010; J3370; J3475; J7040; J7050; J7512; J7611; J7626; P9047; Q0162; Q9967

== ENCOUNTER 2021-07-08 11:29 | Outpatient (CLI) | payer MEDICARE, MEDICAID, SELFPAY ==
--- NOTE | 2021-07-12 09:00 | ONC FU_ITS ---
follow up note Patient: Oswaldo Khan Unit #: [id number]: 1945 Dicatated By: Paula Singh M.D.Date of Visit:Jul 08, 2021 Onc Med Follow-up/Prog Note History of Present Illness: Mr. Khan is a 75-year-old gentleman with history of abdominal pain and rectal bleed underwent colonoscopy and was found to have a rectal mass. A biopsy was obtained and it confirmed adenocarcinoma. Mr Khan then underwent low anterior resection on 03/05/2017. The final pathology report showed invasive adenocarcinoma , tumor invades perirectal adipose and 1 out of 18 lymph nodes was positive with extranodal extension and no loss of nuclear expression of MMR protein . Mr Khan also has history of elevated PSA. On 03/12/2017 his PSA was 35.20. As per patient he has seen Dr. Sunil Martinez , urologist, who is following him and CT scan of abdomen pelvis done on 03/19/2017 showed some prominent retroperitoneal lymph nodes somewhat more prominent than in 2013 Mr Khan took combined chemoradiation for 3 days the first week but then accidentally pulled his [place] cath and sustained urethral injury. He was evaluated by Dr. Martinez and underwent cystoscopy exam and reinsertion of [place] cath, during this time combined chemoradiation therapy was on hold. He resumed 4 weeks after . Patient was advised to take Xeloda daily for 5 days per week during radiation therapy. His Xeloda daily on the days of radiation only was held for a few days due to persistent diarrhea. He concluded his chemoradiation on 11/03/2017. The diarrhea resolved at that time. Mr. Khan was advised to pursue adjuvant chemotherapy with FOLFOX. had a long discussion regarding the role of adjuvant chemotherapy. Mr Khan agreed to get Port-A-Cath placement but then at the last minute, he changed his mind. Since that time though, he has agreed to pursue the recommended adjuvant chemotherapy. He did agree to port placement. He completed 2 cycles of modified FOLFOX as of 03/04/2018. At his 03/16/2018 appointment, he stated had been having increased abdominal pain and decreased energy. He stated that he did not complete the full 2 days of the fluorouracil pump last one and this he felt like it was making me feel pretty bad . CT scan of the abdomen was done on on 03/19/2018 show stable rectosigmoid anastomosis with no recurrent or adjacent adenopathy. Moderate diffuse constipation. At the patient's request and his refusal to continue with 5-FU infusion, it was opted to change the chemotherapy plan of care to XELOX on 03/23/2018 and with the plan to give him 6 cycles. Mr. Khan had tolerated it well. 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 He completed 5/6 cycles. At his request, Adjuvant chemotherapy with Xelox concluded on 07/05/2018. CT scan of abdomen pelvis done on 09/23/2018 showed no acute findings but 1.3 cm nodule in the right lower lobe of the lung. CT PET scan done on 11/06/2018 showed enlarged prostate with diffusely increase uptake Malignant appearing right lung nodules, most likely from colonic carcinoma Malignant mediastinal lymph nodes, most likely from colonic carcinoma No evidence for local prostate metastatic nodes. Normal activity at rectal anastomosis. Mr Khan had followup in August [address] Esquivel, risk analyst. A bronchoscopy was obtained and Mr Khan was diagnosed with sarcoidosis. This was treated with some success but follow-up CT scan of chest done on August 30, 2019 showed evidence of interval progression of disease with bilateral pulmonary nodules. The largest nodule in the right lower lobe posteriorly and right suprahilar with narrowing of right upper lobe bronchus and numerous additional new and progressive pulmonary nodules throughout both lungs right hilar lymphadenopathy. The patient underwent bronchoscopy and endobronchial ultrasound-guided transbronchial needle aspiration of station 11 R, showed significant macrophages and histiocytes but no malignancy. but there was a concern about possibility of malignancy so patient underwent second bronchoscopy on October 28, 2019 which showed a fungating mass was seen at the orifice of right upper lobe bronchus with complete occlusion of airways. The right middle lobe and right lower lobe bronchi were examined up to third subsegmental with no abnormality. Biopsy was obtained came back positive for metastatic colorectal adenocarcinoma as immunohistochemistry stain were positive for CK20 and CDX2. Mr Khan was started on systemic chemotherapy with a Avastin/FOLFIRI on November 16, 2019. Next generation/gene sequencing was ordered and on December 19, 2019, it reported HER-2/peggy negative and says it was not possible to calculate tumor mutational burden and MSI/MMR for the sample because the sequencing data did not reach the minimum depth of coverage required to provide a result on these biomarkers. Follow-up PET/CT from 02/18/2020 reports pulmonary nodules seen on the prior study were improved on the 02/18/2020 study. The index nodule in the right lower lobe that previously measured 2.7 x 1.8 cm with an SUV of 5.5 now measures 1.4 cm with an SUV of 3.2. The other right upper and left lung nodules are similarly improved. Increasing activity is present in the multiple FDG positive mediastinal nodes; as before, these are most consistent with sarcoidosis. These nodules are distributed in the right paratracheal, inferior right perihilar, subcarinal, prevascular and right hilar territories. The previously described right. Rectal node is unchanged in size but has an SUV of 4.2 up from 2.3 previously and consistent with recurrence. Rectal activity is prominent but is most likely physiologic. At that time, his last treatment was on 02/27/2020. As treatment had been on hold due to elevated blood pressure his blood pressure has been 195/110 last visit and is 189/104 despite increasing his lisinopril to 10 mg daily.Continued with amlodipine 5 mg p.o. daily He was also complaining of sigificant headaches, so an MRI scan of the brain was ordered to rule out brain mets. The MRI was done on April 03, 2020 and showed no evidence of metastatic disease to brain and no other acute abnormality seen. Mr Khan has been noncompliant with his chemotherapy as he has skipped many scheduled chemotherapy treatments in the past. An example of his most recent noncompliance; his chemo was given on February 27, 2020 and he did return to the office until April 13, 2020, at that time he was scheduled for chemotherapy on April 16, 2020, but patient did not come. He did eventually resume chemotherapy on April 30, 2020. His last chemotherapy prior to April 30, 2020 was February 27, 2020. His last chemotherapy since April 30, 2020 was on May 28, 2020. He has missed his appointment for several reasons on his part such as just did not feel like coming???sick at stomach , he did realize he was getting chemotherapy that day and had not planned accordingly, etc. For his visit today his last chemotherapy was given on May 28, 2020. His last chemotherapy with 5-FU irinotecan and Avastin was given on May 28, 2020. He has had cardiac work-up with [facility]. He has had a stress test that is negative for cardiac disease. Follow-up CT PET scan done on July 28, 2020 showed the lateral right lower lobe nodule demonstrated ongoing positive response to therapy, now subcentimeter in size, with minimal FDG activity. The extensive mediastinal adenopathy seen previously now minimally FDG positive, with exception of the right hilar node which is now has an SUV of 6, down from 13.6 previously. The right perirectal node has SUV of 3.4 and is unchanged in size, indicating stable disease. No new lesion seen. He has had persistent frontal headaches. He was given oral antibiotic for presumed sinusitis with that his headaches did improve. Mr. Khan had a MRI of the brain with and without contrast on 04/05/2020 which reported no evidence of any intracranial enhancements or metastatic disease. There was mild small vessel changes and moderate parenchymal volume loss but no restricted diffusion to suggest acute ischemia. He has had persistent headaches and some concern that this could have been due to the palonosetron given his premedications. However since he started just Avastin and Xeloda August 22, 2020, his headaches have persisted. He is also complaining of progressive shortness of breath, but it is noted that he reports that he isstill smoking about pack a day. Mr Khan has not been too keen to continue systemic chemotherapy as he has just started feeling better-gradually since his full last chemotherapy dose was last given on May 28, 2020., Follow-up CT PET scan done on November 24, 2020 shows stable bilateral pulmonary nodules, remain subcentimeter in size with minimal FDG activity. No significant change in right hilar node. Minimal progression of right perirectal node which is slightly prominent with SUV of 4.5, a new T6 compression fracture, Subsequently , patient underwent MRI scan of thoracic spine on December 18, 2020 which shows wedge-shaped compression fractures are acute to subacute and diffuse increased signal throughout T7 and T8 vertebral body with very minimal extension into posterior elements. Approximately 40% compression deformity without retropulsion. No enhancement or associated soft tissue mass seen. c/o persistent mid back pain with no radiation to lower extremity, urine no urine or stool incontinence, patient underwent MRI scan of thoracic spine on December 18, 2020 which shows wedge-shaped compression fractures are acute to subacute and diffuse increased signal throughout T7 and T8 vertebral body with very minimal extension into posterior elements. Approximately 40% compression deformity without retropulsion. No enhancement or associated soft tissue mass seen. Patient was referred to orthopedics but as per orthopedic office patient was no-show but patient said he did not get any call from orthopedics office. We will reschedule him for treatment Underwent CT PET scan on March 23, 2021 which shows marginal improvement in the right hilar lymph node, now with SUV 5.3 compared to 7 previously right perirectal adenopathy is minimally improved now with SUV of 2.6. The right lower lobe, nodule that is previously subcentimeter in size FDG negative now 1.4 cm with SUV of 4.2. New malignant activity is present in the enlarging posterior left lower lobe and right lower lobe nodules measuring up to 1.3 cm. Other subcentimeter nodules are more prominent since prior study. Last dose of chemotherapy with Xeloda and Avastin was given on December 31, 2020, Patient has been noncompliant and also off and on hospital visits for low back pain due to compression fracture, Patient was evaluated by orthopedics and surgical intervention was planned, Came for follow-up, denies any specific complaints, except dyspnea on exertion. No fever chills, no nausea or vomiting,, tolerating orally well, gaining weight. No diarrhea constipation, no hemoptysis or hematemesis, no jaundice, no abdominal pain, no shortness of breath at rest, Chronic back pain is under control with current pain medication Medications: Albuterol Sulfate 1 Vial(s) (of (2.5 mg/3ml) 0.083%) Nebulization solution Inhalation q 4 hours PRN, Albuterol Sulfate 2 Puff(s) (of 108 (90 base) mcg/act) Aerosol Powder, Breath Activated Inhalation four times a day, Budesonide 1 Vial(s) (of 0.5 mg/2mL) Aerosol Powder, Breath Activated Inhalation b.i.d., Celecoxib 1 Capsule (of 200 mg) Oral q 12 hours, Docusate Sodium 1 Capsule (of 100 mg) Oral at bedtime, DULoxetine HCl 1 Capsule (of 20 mg) Capsule Delayed Release Particles Oral b.i.d., Ipratropium-Albuterol 1 Vial(s) (of 0.5-2.5 (3) mg/3mL) Solution Inhalation four times a day, Lactulose 15 mL (of 10 g/15mL) Solution Oral daily PRN, LORazepam 1 Tablet (of 0.5 mg) Oral t.i.d., Megestrol Acetate 1 Tablet (of 20 mg) Oral b.i.d., Midodrine HCl 1 Tablet (of 5 mg) Oral q 8 hours, Milk of Magnesia 30 mL (of 400 mg/5mL) Suspension Oral b.i.d. PRN, Mirtazapine 1 Tablet (of 15 mg) Oral at bedtime, Morphine Sulfate (Concentrate) 0.5 mL (of 20 mg/mL) Solution Oral q 4 hours PRN, Morphine Sulfate ER 1 Tablet (of 15 mg) Tablet, controlled release Oral b.i.d., Ondansetron HCl 1 Tablet (of 4 mg) Oral t.i.d. PRN, oxyCODONE HCl 1 Tablet (of 5 mg) Oral q 6 hours PRN, Pantoprazole Sodium 1 Tablet (of 40 mg) Tablet, enteric coated Oral daily, Polyethylene Glycol 1 Dose(s) Powder b.i.d., predniSONE 1 Tablet (of 10 mg) Oral daily, Sennosides-Docusate Sodium 1 Capsule (of 8.6-50 mg) Oral b.i.d., Tamsulosin HCl 1 Capsule (of 0.4 mg) Oral at bedtime, Tylenol 1 Capsule (of 325 mg) Oral q 6 hours Allergies: No Known Allergies. Review of Systems: Review of Systems is not available for this patient. Vital Signs: Performed on Jul 08, 2021 11:47 Height - 70.00 in Weight - 141 lbs (HIGH) BSA - 1.80 sq.m BMI - 20.23 Temperature - 97.7 F (LOW) Pulse - 133 /min (HIGH) BP - 148/74 mm(hg) (HIGH) O2 Sat - 92 % (LOW) Pain - 4 Fatigue - 8 Performance Status: 2 - Ambulatory/capable of all self-care, unable to perform any work activities. Up and about more than 50% of waking hours. (ECOG) Physical Examination: ENMT - No mouth sores, no thrush, no jaundice, no cervical lymphadenopathy, Respiratory - Poor air entry otherwise clear, Cardiovascular - Regular rate and rhythm of heart, Abdomen - Soft, bowel sounds present, Extremities - 1+ edema bilaterally. Lab/Imaging: Most recent lab results are not available for this patient. Impression: Invasive adenocarcinoma of upper rectum status post APR on 03/05/2017 final pathology showed tumor size 5.5 x 5.4 cm low-grade, tumor invades perirectal adipose p T3, lymphovascular invasion present, no perineural invasion seen 1 out of 18 positive lymph nodes N1a , extranodal extension present N1 stage IIIA No loss of nuclear expression of MMR protein Elevated PSA, on 03/12/2017 it was 35.20 with prostate enlargement, being followed by Dr. Martinez. s/p chemoradiation with Xeloda as chemosensitizer. till 11/03/17 discussed with patient regarding the role of adjuvant chemotherapy in stage IIIa rectal cancer, as literature has shown adjuvant chemotherapy improves disease-free survival. Patient has been reluctant to consider chemotherapy because of severe diarrhea during chemoradiation for rectal CA. He was assured that we will adjust/modify his adjuvant chemotherapy to make it tolerable. Patient, now agreed to get port placement and for adjuvant chemotherapy modified FOLFOX every 2 weeks ???12. All the side effect and possible benefits were discussed in detail again and patient expressed understanding. Mr Khan agreed. He was referred back to Dr. Merritt for Port-A-Cath placement and began his first cycle of FOLFOX on 02/09/2018 .Patient developed abdominal pain for which he underwent CT scan of abdomen on 03/19/2018 showed moderate constipation, and stable rectosigmoid anastomosis with no recurrent mass or adjacent adenopathy and bilateral lower lobe pulmonary nodules are stable since 02/03/2017. No evidence of metastatic disease elsewhere. Following day patient had large bowel movement and since then no more abdominal pain. Patient expressed intolerance to 5-FU infusion chemotherapy and also consider it inconvenient so requesting Xeloda pills instead of 5-FU infusion. His treatment plan was changed to XELOX beginning 03/23/2018. He has tolerated it well thus far. He completed 5 of the planned [address] PET scan done on 11/06/2018 showed prostate is enlarged, measuring 6 cm in diameter with diffusely increased FDG activity, most intense in the central prostate. Normal tracer activity at the rectal anastomosis There are 2 pulmonary nodules in the right lower lobe and one in the right upper lobe, the index nodule in the right lower lobe measuring 1.1 x 1.6 cm with SUV of 3.5. Most consistent with metastatic disease, likely from colonic primary. Multiple hypermetabolic mediastinal lymph nodes are present, consistent with metastatic disease, in the inferior right perihilar 1.9 cm, 5.2 SUV. Subcarinal, prevascular, right paratracheal, 1.9 cm, 6.8 SUV. Right hilar territories. Subcentimeter nodes are also noted in the superior right paratracheal region. Too small to characterize. Mr. Khan had established care with Dr. Esquivel in pulmonology. A bronchoscopy was performed and he was found to have sarcoidosis which was treated with some success however a follow-up CT of the chest done on August 29, 2019 showed interval progression of disease with bilateral pulmonary nodules with the largest nodule in the right lower lobe posteriorly. There was activity in the right suprahilar with narrowing of the right upper lobe bronchus and numerous additional new and progressive pulmonary nodules throughout both lungs. There was right hilar lymphadenopathy. He underwent another bronchoscopy and endobronchial ultrasound-guided transbronchial needle aspiration of station 11 R. This showed significant macrophages and histiocytes but no malignancy. However given his history there was concern about the possibility of malignancy therefore he underwent a second bronchoscopy on October 28, 2019. This did show a fungating mass at the orifice of the right upper lobe bronchus with complete occlusion of both airways. The right middle lobe and right lower lobe bronchi were examined up to a third subsegmental with no abnormality. A biopsy was obtained and did report positive for metastatic colorectal adenocarcinoma. Immunohistochemistry stains were positive for CK20 and CDX2. Mr. Khan was advised to pursue pallitave chemotherapy with FOLFOX Avastin. He began his first dose on November 16, 2019. Follow-up PET/CT from 02/18/2020 reports pulmonary nodules seen on the prior study were improved on the 02/18/2020 study. The index nodule in the right lower lobe that previously measured 2.7 x 1.8 cm with an SUV of 5.5 now measures 1.4 cm with an SUV of 3.2. The other right upper and left lung nodules are similarly improved. Increasing activity is present in the multiple FDG positive mediastinal nodes; as before, these are most consistent with sarcoidosis. These nodules are distributed in the right paratracheal, inferior right perihilar, subcarinal, prevascular and right hilar territories. The previously described right. Rectal node is unchanged in size but has an SUV of 4.2 up from 2.3 previously and consistent with recurrence. Rectal activity is prominent but is most likely physiologic. patient resumed his systemic chemotherapy on April 30, 2020 and received next dose on May 28, 2020 and then after that did not take further treatment due to 1 or other reasons subsequently underwent follow-up CT PET scan on May 30, 2020 which shows improvement in the right lower lobe pulmonary nodule. Improvement on the resolution of uptake in mediastinal lymph nodes. Stable FDG positive right perirectal node. Patient declined to continue current systemic therapy with Avastin/FOLFIRI but agreed to take oral Xeloda/Avastin so, at patient's request, his Avastin/FOLFIRI, was discontinued after last dose given on May 28, 2020 and he was switched to oral Xeloda 625 mg per metered squared twice daily day 1 through 14 along with Avastin 7.5 mg/kg on day 1 and then repeat cycle every 3 weeks on 08/22/2020. Follow-up CT PET scan done on November 24, 2020 shows tiny, bilateral pulmonary nodules seen previously are unchanged on current study. Right hilar lymph node is stable with SUV of 7,. No significant increase from 6 on previous study. The right perirectal node is slightly more prominent on the current study with SUV of 4.5 consistent with mild progression and a new T6 vertebral body compression fracture Plan: Discussed with patient and his son regarding their questions concern, patient wants to go home from residential but his son thinks patient is not ready to live alone but overall condition is improving while he is in residential patient wants to try chemotherapy to control his disease, patient son has some question and concern regarding right hilar mass invading into bronchus, as per patient palliative care physician informed that tumor is growing into windpipe and is questioning whether dyspnea on exertion is due to right hilar tumor invading into bronchus. So at this point, will refer him to pulmonology for evaluation for possible bronchoscopy to assess external compression or bronchial involvement, if it does, we will refer him to radiation oncology for evaluation on the other hand if there is no external compression or bronchial involvement then will consider restarting him on palliative therapy with oral Xeloda, as in the past patient, his disease was stabilized with oral Xeloda with minimum toxicity. Discussed with patient and son regarding hospice care, at this moment, they are not considering hospice rather palliative chemotherapy or if needed radiation therapy. Patient is also requesting physical therapy, will refer him to physical therapy, also referred to pulmonology and return to clinic in 1 month with CBC CMP, but that time he will have pulmonary evaluation as well as benefit from physical therapy and we will assess his performance status, and if continue to improve, will consider starting him on oral Xeloda as a maintenance therapy. Signed By: Paula Singh M.D. <<Signature on File>>
== END 2021-07-08 11:30 | disposition home or self-care (01) ==
PROVIDERS: PCP Family Medicine; Visit Provider Internal Medicine Hematology & Oncology
DX: C19 Malignant neoplasm of rectosigmoid junction (principal); C61 Malignant neoplasm of prostate; C77.8 Secondary and unspecified malignant neoplasm of lymph nodes of multiple regions; C78.01 Secondary malignant neoplasm of right lung; C78.02 Secondary malignant neoplasm of left lung; Z79.899 Other long term (current) drug therapy
CPT/HCPCS: 99215

== ENCOUNTER → 2021-07-29 09:02 | Outpatient (BNVA) | payer MEDICARE, MEDICAID, SELFPAY | PROVIDERS: PCP Family Medicine; Visit Provider Internal Medicine Critical Care Medicine | DX: F17.210 Nicotine dependence, cigarettes, uncomplicated (principal); I10 Essential (primary) hypertension; J44.9 Chronic obstructive pulmonary disease, unspecified; Z09 Encounter for follow-up examination after completed treatment for conditions other than malignant neoplasm; C79.9 Secondary malignant neoplasm of unspecified site; C20 Malignant neoplasm of rectum | CPT/HCPCS: 99214 ==

== ENCOUNTER 2021-08-06 05:47 | Day surgery (SDC) | payer MEDICARE, MEDICAID, SELFPAY ==
[2021-08-05 10:33] VITALS: BMI 20.2
--- NOTE | 2021-08-06 06:22 | ECG_ITS ---
[facility] Test Date: 2021-08-06 Pat Name: Oswaldo Khan Department: Room: Gender: Male Senior [employer]: : 1945 Requested By: Christo Gordon Order Number: [id number] Lucia MD: Master Savage M.D. Measurements Intervals [place] Rate: 120 P: 79 GA: 112 QRS: 73 QRSD: 72 T: 73 QT: 281 QTc: 397 Interpretive Statements SINUS TACHYCARDIA WITH SHORT GA INTERVAL WITH FREQUENT SUPRAVENTRICULAR PREMATURE COMPLEXES Compared to ECG 06/25/2021 23:50:42 No significant changes Electronically Signed On 08-06-2021 20:55:49 CDT by Master Savage M.D. [email or web address]
[2021-08-06 06:25] VITALS: BP 123/90; PULSE 124; RESP 22; TEMP 36.4; O2SAT 97
[2021-08-06 06:30] VITALS: PULSE 124; RESP 18; O2SAT 96
[2021-08-06] MEDS: sodium chloride 0.9% 1,000 ML 30 ML IV (06:30)
[2021-08-06] MEDS: ipratropium-albuterol 3 mL Neb INHALATION (06:39)
--- NOTE | 2021-08-06 06:50 | ANES.PREANE2 ---
Pre-Anesthetic Assessment Height/Weight: Height 1.78 m Weight 63.957 kg Temp Pulse Resp BP Pulse Ox 97.6 F 124 H 18 123/90 96 08/06/21 06:25 08/06/21 06:30 08/06/21 06:30 08/06/21 06:25 08/06/21 06:30 Preop Diagnosis: Small bowel obstruction Operation Date: 08/06/21 07:10 Proposed Procedures p Bronchoscopy with possible transbronch [id number]/R91.8(Not Applicable) - Bipamadeo Esquivel MD Familial anesthetic complications: None Was Beta Charis taken within 24 hours: N/A Was Clonidine taken within 24 hours: N/A Last intake: Intake Last Liquid Date 08/05/21 Last Liquid Time 20:00 Last Solid Date 08/05/21 Last Solid Time 20:00 Social Tobacco and No alcohol Exam alert, oriented x 3 and regular rate & rhythm (tachy) wheezes - breathing treatment ordered Airway Mallampati: Class II Dentition: other (multiple missing, poor dentition) Pulmonary Chronic Obstructive Pulmonary Disease (On O2) metastic lung cancer CV/HEM Congestive Heart Failure and Hypertension Hx PE GI colorectal cancer Metabolic Adrenal insufficiency [facility] [place] sarcoidosis Anesthetic Plan ASA status: 4 Anesthesia: General Risk of > 500 ml blood loss (7ml/kg in children): No Medications/Allergies Home Medications Medication Instructions Recorded Confirmed Last Taken Type miscellaneous medical supply #1 ea 03/19/21 08/06/21 08/05/21 Rx acetaminophen 325 mg tablet 650 mg PO Q6H PRN #60 tab 07/01/21 08/06/21 08/05/21 Rx albuterol sulfate 2.5 mg/0.5 mL 2.5 mg (0.5 mL) INHALATION 07/01/21 08/06/21 08/05/21 Rx solution for nebulization Q4H.RESPIRATORY PRN #100 ea budesonide 0.5 mg/2 mL suspension 0.5 mg (2 mL) INHALATION 07/01/21 08/06/21 08/05/21 Rx for nebulization BID.RESPIRATORY #60 ml celecoxib 200 mg capsule 200 mg PO Q12H #60 cap 07/01/21 08/06/21 08/05/21 Rx docusate sodium 100 mg capsule 100 mg PO BEDTIME PRN #30 cap 07/01/21 08/06/21 08/05/21 Rx (Stool Softener) duloxetine 20 mg capsule,delayed 20 mg PO DAILY #30 cap 07/01/21 08/06/21 08/05/21 Rx release ipratropium 0.5 mg-albuterol 3 mg 3 ml INHALATION QID.RESPIRATORY 07/01/21 08/06/21 08/05/21 Rx (2.5 mg base)/3 mL nebulization #120 ml soln lorazepam 0.5 mg tablet 0.5 mg PO TID PRN #30 tab 07/01/21 08/06/21 08/05/21 Rx magnesium hydroxide 400 mg/5 mL 30 ml PO BID PRN #400 ml 07/01/21 08/06/21 08/05/21 Rx oral suspension (Milk of Magnesia) megestrol 20 mg tablet 20 mg PO BID #60 tab 07/01/21 08/06/21 08/05/21 Rx midodrine 5 mg tablet 5 mg PO Q8H #90 tab 07/01/21 08/06/21 08/05/21 Rx mirtazapine 15 mg disintegrating 15 mg PO BEDTIME #30 tab 07/01/21 08/06/21 08/05/21 Rx tablet morphine 15 mg tablet,extended 15 mg PO BID #60 tab 07/01/21 08/06/21 08/05/21 Rx release morphine concentrate 10 mg/0.5 mL 10 mg (0.5 mL) PO Q4H PRN #20 ml 07/01/21 08/06/21 08/05/21 Rx oral syringe (FOR ORAL USE ONLY) ondansetron 4 mg disintegrating 4 mg PO TID PRN #15 tab 07/01/21 08/06/21 08/05/21 Rx tablet oxycodone 5 mg capsule 5 mg PO Q6H PRN #60 cap 07/01/21 08/06/21 08/05/21 Rx pantoprazole 40 mg tablet,delayed 40 mg PO DAILY #30 tab 07/01/21 08/06/21 08/06/21 Rx release (Protonix) polyethylene glycol 3350 17 gram 17 g PO BID #60 ea 07/01/21 08/06/21 08/05/21 Rx oral powder packet prednisone 10 mg tablet 10 mg PO BID #60 tab 07/01/21 08/06/21 08/05/21 Rx sennosides 8.6 mg-docusate sodium 1 tab-cap PO BID #60 tab 07/01/21 08/06/21 08/05/21 Rx 50 mg tablet (Senna-S) tamsulosin 0.4 mg capsule 0.4 mg PO BEDTIME #30 cap 07/01/21 08/06/21 08/05/21 Rx albuterol sulfate 90 mcg/actuation 2 puff INHALATION Q6H PRN 08/05/21 08/06/21 08/05/21 History aerosol inhaler lactulose 10 gram oral packet 15 ml PO DAILY PRN 08/05/21 08/06/21 08/05/21 History Allergies Allergy/AdvReac Type Severity Reaction Status Date / Time No Known Allergies Allergy Verified 08/06/21 06:20 Current Medications Generic Name Dose Route Start Last Admin Trade Name Freq PRN Reason Stop Dose Admin Sodium Chloride 1,000 mls @ 30 mls/hr 08/06/21 06:00 08/06/21 06:30 Sodium Chloride 0.9% IV 08/07/21 05:59 30 mls/hr .Q24H MARTÍNEZ Administration PFSH Anesthesia Medical History (Updated 08/05/21 @ 17:16 by Francine Menchaca APRN) Acid reflux Adrenal insufficiency Anxiety about health Aspiration pneumonia BPH loc w urin obs/LUTS Chronic use of steroids Compression fx, thoracic spine Constipation, slow transit COPD (chronic obstructive pulmonary disease) Essential (primary) hypertension Fracture, thoracic vertebra, compression H/O colon cancer, stage III History of pulmonary embolus (PE) Lumbar compression fracture Lung cancer Malignant neoplasm of prostate 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, N1a, M0 Mediastinal lymphadenopathy Nocturia Other nonspecific abnormal finding of lung field Rectal cancer Sarcoidosis Secondary malignant neoplasm of right lung Small bowel obstruction Surgical History History of liver biopsy / Percutaneous abscess drainage Port-A-Cath in place S/P colon resection 2015 ([place]) -- sigmoid resection for colon cancer / cholecystectomy / incidental appendectomy / umbilical hernia repair S/P small bowel resection (05/18/21) For small bowel obstruction Family History Mother , 62 CAD (coronary artery disease) Diabetes Father , 74 Cancer Colon Social History Smoking and tobacco status: current every day smoker (8 cigs/ day) cigarettes Packs smoked per day: 1 Years cigarettes smoked: 45 [ Other cigarette details: currently down to half pack or so] Quit status (tobacco): has tried quititng Second hand smoke exposure: Yes Smoking risk assessment/counseling performed?: No Alcohol intake: never Desire information about alcohol rehabilitation?: No Counseling given: No Desire information about substance/drug rehabilitation?: No Counseling given: No Adopted: No Caregiver/support person: No Lives independently: Yes Household members: none Housing: House Marital status: Current occupational status: retired History of recent travel: No Current gender identity: Male Data Anesthesia Cardiac Studies: Echocardiogram 06/26/21 Echocardiogram Ultrasound 06/19/20 Sestamibi Stress Test (Cardiology) 06/19/20
--- NOTE | 2021-08-06 06:55 | W.PM.OPSUD ---
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 No change to the previous documentation. PREOP DIAGNOSIS: Suspected mucus impaction of the airways with metastatic rectal cancer PLANNED PROCEDURE: Bronchoscopy inspection of the airway, possible endobronchial biopsy, airway clearance, control of bleeding Operation Date: 08/06/21 07:10 Proposed Procedures p Bronchoscopy with possible transbronch [id number]/R91.8(Not Applicable) - Bipamadeo Esquivel MD
[2021-08-06] MEDS: lidocaine 1% INJ 20 mL XX (07:15)
--- NOTE | 2021-08-06 07:22 | PM.OP ---
Operative Report Date of procedure: August 06, 2021 Pre-op diagnosis: Preop Diagnosis Suspected mucus impaction of the airways with metastatic rectal cancer Procedure: Name of the procedure: Bronchoscopy with inspection of the airway, bronchoalveolar lavage, and control of bleeding Indication: Metastatic rectal cancer with concerns for airway occlusion with mucus on the right side. Anesthesia: Monitored anesthesia care Local anesthesia: The vocal cords, yesenia in the right and left mainstem bronchi were anesthetized with 1% lidocaine,7 mL. Description of the procedure: The procedure was explained to the patient and the consent was obtained. The patient was brought to the OR. The patient underwent monitored anesthesia care. Following institution of the MAC, the bronchoscope was introduced through the mouth. The vocal cords were normal. The vocal cords were incised with 1% lidocaine, 3 mL lidocaine was used. The bronchoscope was then introduced through the vocal cords into the upper trachea. Mucus was noted in the mid trachea. This was suctioned out. The lower trachea also had mucus. The trachea was anesthetized with 1% lidocaine. 2 mL was used. The yesenia was sharp. The yesenia, right and left mainstem bronchi were incised with 1% lidocaine. In a systematic manner bilateral bronchial tree was then examined. A fungating mass nearly occluding right mainstem bronchus was easily seen at the level of the yesenia. The lesion bled easily to touch. I had not tried to pass the bronchoscope beyond this lesion. The bronchoscope was advanced into the left mainstem bronchus. The left upper lobe, lingula and left lower lobe bronchi were examined up to the third subsegmental level and no abnormalities were identified. There is no endobronchial lesion, active bleeding or mucous plug. Bronchoalveolar lavage was performed from the inferior segment of the lingula. 60 mL of fluid was instilled, fluid return was 10 mL. Samples: 1. Bronchoalveolar lavage specimen was sent for gram stain and culture. Complications: There was no immediate complications.
[2021-08-06 07:27] VITALS: BP 122/91; PULSE 135; RESP 16; TEMP 36.3; O2SAT 96
[2021-08-06 07:42] VITALS: BP 143/98; PULSE 128; RESP 20; O2SAT 96
--- NOTE | 2021-08-06 18:53 | ANE.PACU2 ---
Inpatient post-anesthesia follow up: Airway intact: Yes Vital signs: Temperature 97.4 F Pulse Rate 128 Respiratory Rate 20 Blood Pressure 143/98 Pulse Oximetry 96 Oxygen Delivery Me thod Nasal Cannula Oxygen Flow Rate 3 Fraction of Inspir ed Oxygen Hydration adequate: Yes Nausea and vomiting: No Pain level: 1 Mental status: Baseline
== END 2021-08-06 08:00 | disposition home or self-care (01) ==
PROVIDERS: PCP Family Medicine; Visit Provider Internal Medicine Critical Care Medicine
PROC: 0BJ08ZZ Inspection of Tracheobronchial Tree, Via Natural or Artificial Opening Endoscopic (ICD-10-PCS; CPT 31622; principal; 2021-08-06 07:00)
DX: C20 Malignant neoplasm of rectum (principal); J44.9 Chronic obstructive pulmonary disease, unspecified; Z99.81 Dependence on supplemental oxygen; I11.0 Hypertensive heart disease with heart failure; I50.9 Heart failure, unspecified; K21.9 Gastro-esophageal reflux disease without esophagitis; N40.1 Benign prostatic hyperplasia with lower urinary tract symptoms; N13.8 Other obstructive and reflux uropathy; Z79.52 Long term (current) use of systemic steroids; I10 Essential (primary) hypertension; F17.210 Nicotine dependence, cigarettes, uncomplicated
CPT/HCPCS: 31624; 87070; 87077; 87186; 87205; 93005; 94640; J2704; J7030

== ENCOUNTER 2021-08-22 09:48 | Observation (INO) | payer MEDICARE, MEDICAID, SELFPAY ==
[2021-08-22] VITALS (8 sets, daily range): BP systolic 101–145; BP diastolic 64–93; PULSE 119–135; RESP 15–31; TEMP 36.5–37.7; O2SAT 90–98; BMI 25.0
--- NOTE | 2021-08-22 09:53 | ECG_ITS ---
[facility] Test Date: 2021-08-22 Pat Name: Oswaldo Khan Department: Room: Gender: Male Environmental Health Physician: : 1945 Requested By: Max Metz Order Number: [id number] Lucia MD: Master Savage M.D. Measurements Intervals Berry Rate: 130 P: MS: QRS: 64 QRSD: 76 T: 67 QT: 261 QTc: 385 Interpretive Statements SINUS TACHYCARDIA Compared to ECG 08/06/2021 06:31:10 NO SIGNIFICANT CHANGES Electronically Signed On 08-22-2021 17:18:31 CDT by Master Savage M.D. [id number]
--- NOTE | 2021-08-22 09:53 | XR_ITS ---
WS: [id number] Portable AP upright chest, 08/22/2021, 1011 hours Clinical Data: dyspnea/cough Comparison: Portable chest, 07/01/2021. Findings: There is a large right pneumothorax with atelectasis of the right lung. The mediastinum has not shifted. The left lung shows possible left upper lobe nodules. The heart is normal. There is jennifre tebroplasty cement in the mid thoracic vertebral bodies. Monitor leads are on the chest wall. There i s a left Port-A-Cath which ends adjacent to or possibly in the superior vena cava/left subclavian vei n junction. There are old right second through fourth posterior lateral rib fractures. Monitor leads are on the chest wall. XR/XR chest 1V portable [id number] Impression: 1. Large right pneumothorax with atelectasis of the right lung. 2. No change in left lung with probable nodules in left upper lobe.
--- NOTE | 2021-08-22 09:54 | W.ED.SOB ---
HPI - SOB/Dyspnea General: Chief Complaint: Shortness of Breath/Dyspnea Stated Complaint: RESPIRATORY DISTRESS Time Seen by Provider: 08/22/21 09:49 Source: patient and EMS Mode of arrival: EMS Limitations: no limitations History of Present Illness: HPI Narrative: 75-year-old male with a known history of lung CA presents emergency room complaining of severe shortness of breath. EMS reported he was in the low 80s on arrival on the scene. He was breathing better with a mask at 15 L/min on arrival here. He has noticed increased swelling in his feet denies productive cough no fever. Patient has known renal cell CA with lung mets. He had a bronchoscopy earlier this month and showed occlusion of the right mainstem he has been referred to [facility] for further evaluation. today he has developed significant shortness of breath. He has also noticed increased swelling of the lower extremities. MD elicited complaint: shortness of breath and cough Pertinent past history: COPD Onset (ago): hour(s) Timing: constant Severity: severe Exacerbating factors: nothing Relieving factors: nothing Known history of: COPD Associated symptoms: Reports chest congestion, chest pain, cough and diaphoresis; Deny abdominal pain, dizziness, extremity pain, fever(s), hemoptysis, lightheadedness, myalgias, nausea, orthopnea, palpitations, paresthesias, polydipsia, polyuria, rash, sense of impending doom, syncope or vomiting Treatment prior to arrival: oxygen Review of Systems Const: Reports: diaphoresis; Denies: fever(s) or chills Card: Reports: chest pain, edema and swelling of feet/ankles; Denies: palpitations, lightheadedness, syncope or orthopnea Resp: Reports: dyspnea, non-productive cough, wheezing and chest congestion; Denies: hemoptysis GI: Denies: abdominal pain, nausea or vomiting Musc: Denies: extremity pain Neuro: Denies: dizziness Endo: Denies: polyuria or polydipsia PFSH ED PFSH: Medical History Acid reflux Adrenal insufficiency Anxiety about health Aspiration pneumonia BPH loc w urin obs/LUTS Chronic use of steroids Compression fx, thoracic spine Constipation, slow transit COPD (chronic obstructive pulmonary disease) Essential (primary) hypertension Fracture, thoracic vertebra, compression H/O colon cancer, stage III History of pulmonary embolus (PE) Lumbar compression fracture Lung cancer Malignant neoplasm of prostate 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, N1a, M0 Mediastinal lymphadenopathy Nocturia Other nonspecific abnormal finding of lung field Rectal cancer Sarcoidosis Secondary malignant neoplasm of right lung Small bowel obstruction Surgical History History of liver biopsy / Percutaneous abscess drainage Port-A-Cath in place S/P colon resection 2015 ([place]) -- sigmoid resection for colon cancer / cholecystectomy / incidental appendectomy / umbilical hernia repair S/P small bowel resection (05/18/21) For small bowel obstruction Family History Mother , 62 CAD (coronary artery disease) Diabetes Father , 74 Cancer Colon Social History Smoking and tobacco status: current every day smoker (8 cigs/ day) cigarettes Packs smoked per day: 1 Years cigarettes smoked: 45 [ Other cigarette details: currently down to half pack or so] Quit status (tobacco): has tried quititng Second hand smoke exposure: Yes Smoking risk assessment/counseling performed?: No Alcohol intake: never Desire information about alcohol rehabilitation?: No Counseling given: No Desire information about substance/drug rehabilitation?: No Counseling given: No Adopted: No Caregiver/support person: No Lives independently: Yes Household members: none Housing: House Marital status: Current occupational status: retired History of recent travel: No Current gender identity: Male Physical Exam Const: ORIENTATION/CONSCIOUSNESS: Yes awake HENMT: COMMON NORMALS: normocephalic and atraumatic HEAD & SCALP: normocephalic and atraumatic Resp: COMMON NORMALS: No retractions EFFORT & INSPECTION: No able to speak in complete sentences, Yes abnormal respiratory pattern, Yes respiratory distress and Yes uses accessory muscles AUSCULTATION: breath sounds absent on the right Cardio: JUGULAR VENOUS DISTENTION: JVD RATE: tachycardic GI: COMMON NORMALS: Soft to palpation and No hepatosplenomegaly present AUSCULTATION: Yes normoactive bowel sounds PALPATION: Yes Soft to palpation, No Tenderness to palpation present (GI), No Guarding due to palpation present (GI) and Yes No hepatosplenomegaly present Procedures Chest Tube Chest Tube 1: Chest Tube Location: right and mid axillary line Size of Tube (cm): 32 Chest Tube Prep: Yes betadine prep and sterile drapes applied Local Anesthetic: lidocaine 1% Amount of anesthesia used (mL): 10 Incision Made With: #10 blade Post Procedure: sutured to skin and sterile dressing applied Tube Drainage: none Post Procedure CXR?: Yes Patient Tolerated Procedure: Yes Progress: Post procedure film shows tube is entering the chest higher than I would prefer but it is in good position is adequately decompressed the pneumothorax. Course Vital Signs: Vital signs: Vital Signs Temperature 99.0 F 08/23/21 12:00 Pulse Rate 135 H 08/23/21 12:00 Respiratory Rate 20 H 08/23/21 12:00 Blood Pressure 102/66 08/23/21 12:00 Pulse Oximetry 91 08/23/21 07:55 MDM - SOB/Dyspnea Medical Decision Making Initially on arrival patient appeared significantly fluid overloaded and is given 60 Lasix. Breath sounds are absent on the right foot he has a known obstruction so this was not can that it unusual given his history. We have started on BiPAP because of his hypercapnia. Chest x-ray reviewed he had a large pneumothorax BiPAP was immediately stopped the chest tube was placed on the right side with good expansion the chest and follow-up chest x-ray. Dr. Esquivel was consulted discussed Dr. Esquivel and with Dr. Chavis as well as with the family. Called to [facility] to look at transferring the patient. They reviewed previous images and felt with this history there is very little they had to offer the patient. Dr. Esquivel was asked to come and talk to the family in the exam room which she kindly did. After discussion with Alvin myself and Loree family ultimately decided to pursue comfort cares and requested that the chest tube be removed Chest tube removal was coordinated with patient being transferred to the floor. Once the reported being given patient was given pain medications chest tube removed and the wound sutured closed with 0 silk in a running locking suture then bandaged with Vaseline gauze to provide adequate seal. Patient will be transferred to the floor for comfort cares Dr. Chavis to be the attending. Medical Records I reviewed the patient's medical records. Lab Data I reviewed the patient's lab results. : 08/22/21 10:12 08/22/21 10:12 Labs/Radiology: Radiology Impressions Chest X-Ray 08/22/21 11:26 Impression: 1. Development of right chest wall subcutaneous emphysema. 2. No change in position of right chest tube. 3. Continued reexpansion of right lung. Laboratory Results WBC 11.4 10^3/uL (4.0-10.0) H 08/22/21 10:12 RBC 4.05 10^6/uL (4.1-5.3) L 08/22/21 10:12 Hgb 11.3 g/dL (11.7-16.6) L 08/22/21 10:12 Hct 36.5 % (42.0-52.0) L 08/22/21 10:12 MCV 90.1 fl (80-94) 08/22/21 10:12 MCH 27.9 pg (28.0-34.0) L 08/22/21 10:12 MCHC 31.0 g/dL (30.0-36.0) 08/22/21 10:12 RDW 15.4 % (12.1-15.1) H 08/22/21 10:12 Plt Count 234 10^3/cmm (130-400) 08/22/21 10:12 MPV 9.0 fL (7.4-10.4) 08/22/21 10:12 Neut % (Auto) 87.2 % 08/22/21 10:12 Lymph % (Auto) 7.8 % 08/22/21 10:12 [place] % (Auto) 4.1 % 08/22/21 10:12 Eos % (Auto) 0.2 % 08/22/21 10:12 Baso % (Auto) 0.3 % 08/22/21 10:12 Neut # (Auto) 9.92 10^3/uL (1.8-7.7) H 08/22/21 10:12 Lymph # (Auto) 0.9 10^3/uL (0.8-4.8) 08/22/21 10:12 [place] # (Auto) 0.5 10^3/uL (0.2-0.9) 08/22/21 10:12 Eos # (Auto) 0.0 10^3/uL (0.0-0.8) 08/22/21 10:12 Baso # (Auto) 0.0 10^3/uL (0.0-0.1) 08/22/21 10:12 Nucleated RBC % (auto) 0 % 08/22/21 10:12 Nucleated RBCs # 0.0 /100WBC 08/22/21 10:12 Specimen Type Arterial 08/22/21 11:34 Sample Site Radial, right 08/22/21 11:34 ABG pH 7.24 (7.35-7.45) L 08/22/21 11:34 ABG pCO2 83.2 mmHg (35-45) H* 08/22/21 11:34 ABG pO2 87.0 mmHg (80.0-100.0) 08/22/21 11:34 ABG HCO3 35.5 mmol/L (22-26) H 08/22/21 11:34 ABG O2 Saturation 99.3 08/22/21 09:55 ABG Base Excess 5.4 mmol/L (-2.0-2.0) H 08/22/21 11:34 Solitario Test Pos 08/22/21 11:34 A-a O2 Gradient 22.4 mmHg (5-10) H 08/22/21 09:55 Hematocrit 38.4 % (42-52) L 08/22/21 11:34 Hgb O2 Saturation 97.5 % (95-100) 08/22/21 09:55 Carboxyhemoglobin 1.3 %THgb (0.4-20.1) 08/22/21 09:55 Methemoglobin 0.6 % (0.4-1.5) 08/22/21 09:55 Total Hemoglobin 11.8 g/dL (14-18) L 08/22/21 09:55 Sodium 141.0 mmol/L (131-143) 08/22/21 09:55 Potassium 4.7 mmol/L (3.5-5.0) 08/22/21 09:55 Glucose 134.0 mg/dL (70-115) H 08/22/21 09:55 Ionized Calcium 1.3 mmol/L (1.1-1.4) 08/22/21 09:55 O2 Delivery Device Nrb 08/22/21 11:34 O2 Liters/Min 15.0 % 08/22/21 11:34 FiO2 100.0 % 08/22/21 11:34 Paper Cap Machine Operator ID glc 08/22/21 11:34 Sodium 139 mmol/L (136-145) 08/22/21 10:12 Potassium 4.9 mmol/L (3.5-5.1) 08/22/21 10:12 Chloride 101 mmol/L (98-107) 08/22/21 10:12 Carbon Dioxide 32 mmol/L (22-29) H 08/22/21 10:12 Anion Gap 10.9 (5-19) 08/22/21 10:12 BUN 16 mg/dL (8-23) 08/22/21 10:12 Creatinine 0.4 mg/dL (0.7-1.2) L 08/22/21 10:12 GFR Calculation Not Reportable 08/22/21 10:12 Glucose 134 mg/dL (65-115) H 08/22/21 10:12 Calculated Osmolality 291 mOsm/kg (285-295) 08/22/21 10:12 Lactic Acid 0.4 mmol/L (0.5-2.2) L 08/22/21 10:12 Calcium 9.2 mg/dL (8.5-10.5) 08/22/21 10:12 Total Bilirubin 0.3 mg/dL (0.15-1.2) 08/22/21 10:12 AST 20 U/L (0-40) 08/22/21 10:12 ALT 31 U/L (0-41) 08/22/21 10:12 Alkaline Phosphatase 111 IU/L (40-130) 08/22/21 10:12 Creatine Kinase 34 U/L (39-308) L 08/22/21 10:12 Troponin T Baseline 38 ng/L (0-15) H 08/22/21 10:12 Troponin T 120 Minute 35.34 ng/L (0-15) H 08/22/21 12:07 Delta Troponin T -2.66 ABS# (0-10) L 08/22/21 12:07 Total Protein 6.1 g/dL (6.6-8.7) L 08/22/21 10:12 Albumin 3.8 g/dL (3.5-5.2) 08/22/21 10:12 Globulin 2.3 g/dL (1.3-4.6) 08/22/21 10:12 Urine Color Yellow (Yellow) 08/22/21 11:39 Urine Appearance Clear (CLEAR) 08/22/21 11:39 Urine pH 6 (5-7) 08/22/21 11:39 Ur Specific Media 1.010 (1.005-1.030) 08/22/21 11:39 Urine Protein Neg (Negative) 08/22/21 11:39 Urine Glucose (UA) Norm (Normal) 08/22/21 11:39 Urine Ketones Negative (Negative) 08/22/21 11:39 Urine Blood Neg (Negative) 08/22/21 11:39 Urine Nitrate Negative (Negative) 08/22/21 11:39 Urine Bilirubin Neg (Negative) 08/22/21 11:39 Urine Urobilinogen Norm mg/dL (Negative) 08/22/21 11:39 Ur Leukocyte Esterase Negative (Negative) 08/22/21 11:39 Discharge Plan Discharge Patient Disposition: Admitted As Inpatient Admit Provider: Mauricio Chavis Clinical Impression: Pneumothorax, Acute respiratory failure with hypoxia and hypercapnia, COPD (chronic obstructive pulmonary disease), 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 Condition: Stable Probable Cause of Probable cause of : Cardiac arrest Coding Level of Care Code ED Drapery Rod Assembler for Izabel Rojas
[2021-08-22 10:05] LABS: ABG PH Result 7.26 (7.35-7.45); Alveolar-Arterial Oxygen Gradi 22.4 mmHg (5-10); Arterial Blood Gas Hematocrit 36.2 % (42-52); Base Excess ABG 5.1 mmol/L (-2.0-2.0); Blood Gas Allen Test Pos; Blood Gas Operator Identificat glc; Blood Gas Sample Site Radial, left; Blood Gas Sample Type Arterial; Carboxyhemoglobin 1.3 %THgb (0.4-20.1); HCO3 ABG 34.2 mmol/L (22-26); HGB O2 Sat 97.5 % (95-100); Ionized Calcium Level - ABG 1.3 mmol/L (1.1-1.4); Methemoglobin 0.6 % (0.4-1.5); Oxygen Device NRB; Oxygen Saturation ABG 99.3; Potassium Level - ABG 4.7 mmol/L (3.5-5.0); Total Hemoglobin 11.8 g/dL (14-18)
[2021-08-22 10:07] LABS: ABG PCO2 75.6 mmHg (35-45)
[2021-08-22] MEDS: ondansetron 2 mg/ML SDV 2 mL 4 MG IVP (10:14)
[2021-08-22 10:20] LABS: Basophils % 0.3 %; Eosinophils % 0.2 %; Hematocrit 36.5 % (42.0-52.0); Hemoglobin 11.3 g/dL (11.7-16.6); Lymphocytes # 0.9 10^3/uL (0.8-4.8); Lymphocytes % 7.8 %; Mean Corpuscular Hemoglobin 27.9 pg (28.0-34.0); Mean Corpuscular Volume 90.1 fl (80-94); Monocytes # 0.5 10^3/uL (0.2-0.9); Monocytes % 4.1 %; Neutrophils # 9.92 10^3/uL (1.8-7.7); Neutrophils % 87.2 %; Nucleated Red Blood Cells % 0 %; Platelet Count 234 10^3/cmm (130-400); Red Blood Count 4.05 10^6/uL (4.1-5.3); Red Cell Distribution Width 15.4 % (12.1-15.1); White Blood Count 11.4 10^3/uL (4.0-10.0)
[2021-08-22] MEDS: FUROsemide 10 mg/mL SDV 10mL 80 MG IVP (10:20)
[2021-08-22 10:36] LABS: Lactic Sepsis W/Reflex 0.4 mmol/L (0.5-2.2)
[2021-08-22 10:37] LABS: Alanine Aminotransferase 31 U/L (0-41); Albumin Level 3.8 g/dL (3.5-5.2); Alkaline Phosphatase 111 IU/L (40-130); Anion Gap 10.9 (5-19); Aspartate Amino Transferase 20 U/L (0-40); Blood Urea Nitrogen 16 mg/dL (8-23); Calcium 9.2 mg/dL (8.5-10.5); Carbon Dioxide 32 mmol/L (22-29); Chloride 101 mmol/L (98-107); Creatine Phosphokinase 34 U/L (39-308); Globulin 2.3 g/dL (1.3-4.6); Glucose 134 mg/dL (65-115); Osmolality Calculated 291 mOsm/kg (285-295); Potassium 4.9 mmol/L (3.5-5.1); Sodium 139 mmol/L (136-145); Total Bilirubin 0.3 mg/dL (0.15-1.2); Total Protein 6.1 g/dL (6.6-8.7)
[2021-08-22 10:40] LABS: Troponin(5th) Baseline 38 ng/L (0-15)
--- NOTE | 2021-08-22 10:41 | XR_ITS ---
WS: [id number] Portable AP semiupright chest, 08/22/2021, 1050 hours Clinical Data: CHEST TUBE PLACEMENT Comparison: Portable chest, are described today, 1011 hours. Findings: A large bore chest tube has been inserted into the right chest and ends in the right apex. The right pneumothorax has reinflated. There is a right hilar mass. The left lung and heart show no c hanges. XR/XR chest 1V portable [id number] Impression: 1. Insertion of right chest tube with reinflation of right lung. 2. Right hilar mass. 3. No change in the remainder of the chest.
[2021-08-22] MEDS: dilTIAZem 5 mg/mL SDV 5 mL 20 MG IVP (11:23)
--- NOTE | 2021-08-22 11:26 | XR_ITS ---
WS: [id number] Portable AP semiupright chest, 08/22/2021, 1141 hours. Clinical Data: CK PLACEMENT AGAIN Comparison: Portable chest, are described today, 1050 hours Findings: Right chest tube remains in the superior aspect of the right pleural space. Subcutaneous em physema along the right chest wall is seen. The right lung remains fully expanded. The remainder of t he chest shows no change. XR/XR chest 1V portable [id number] Impression: 1. Development of right chest wall subcutaneous emphysema. 2. No change in position of right chest tube. 3. Continued reexpansion of right lung.
[2021-08-22] MEDS: fentaNYL 50 mcg/mL INJ 2mL 100 MCG IVP ×2 (11:36→16:42)
[2021-08-22] MEDS: midazolam 1 mg/mL INJ 2 mL 5 MG IVP (11:38)
[2021-08-22 11:44] LABS: ABG PH Result 7.24 (7.35-7.45); Arterial Blood Gas Hematocrit 38.4 % (42-52); Base Excess ABG 5.4 mmol/L (-2.0-2.0); Blood Gas Allen Test Pos; Blood Gas Operator Identificat glc; Blood Gas Sample Site Radial, right; Blood Gas Sample Type Arterial; HCO3 ABG 35.5 mmol/L (22-26); Oxygen Device NRB
[2021-08-22 11:45] LABS: ABG PCO2 83.2 mmHg (35-45)
[2021-08-22 11:45] LABS: Add Urine Microscopic? NO; Charge for UA Resulting for Rev
[2021-08-22 11:48] LABS: Bilirubin Urine Neg (Negative); Blood Urine Neg (Negative); Glucose Urine UA Norm (Normal); Ketones Urine Negative (Negative); Leukocyte Esterase Urine Negative (Negative); Nitrate Urine Negative (Negative); Protein Urine Neg (Negative); Urine Appearance Clear (CLEAR); Urine Color Yellow (Yellow); Urobilinogen Urine Norm (Negative); pH Urine 6 (5-7)
[2021-08-22] MEDS: LORazepam 2 mg/mL INJ 1 mL IVP ×4 (11:51→22:12)
--- NOTE | 2021-08-22 11:53 | ECG_ITS ---
[facility] Test Date: 2021-08-22 Pat Name: Oswaldo Khan Department: Room: Gender: Male Inspector Exhaust Emissions: : 1945 Requested By: Max Metz Order Number: [id number] Luica MD: Master Savage M.D. Measurements Intervals Raphine Rate: 120 P: 32 VT: 123 QRS: 59 QRSD: 75 T: 57 QT: 278 QTc: 394 Interpretive Statements SINUS TACHYCARDIA Compared to ECG 08/22/2021 10:01:24 Atrial fibrillation no longer present Electronically Signed On 08-22-2021 17:20:12 CDT by Master Savage M.D. [email or web address] Consultingwinston medical centerAdara Globalpromedica memorial hospitalMyhomepage [id number]
--- NOTE | 2021-08-22 12:14 | PC.NURSE ---
Chest tube insertion ordered by Dr. Mojica. Tray set up, pt on continuous cardiac, BP, and SpO2 monitoring. Respiratory therapy present in room. Pt given 3 mg of Verced IVP and 50 mg Fentanyl IVP at 1035. Chest tube inserted and air in tube with condensation at 1038. Tube connected to drainage vac and secured. All meds wasted with Caroline Dietz RN
--- NOTE | 2021-08-22 12:28 | PC.NURSE ---
Noreen stopped per Dr. Mojica. Pt in NSR
[2021-08-22 12:31] LABS: Troponin 5 2HR 35.34 ng/L (0-15)
[2021-08-22 12:32] LABS: Troponin 5 2HR Delta -2.66 ABS# (0-10)
--- NOTE | 2021-08-22 12:34 | PC.NURSE ---
Vital signs from arrival to 1230 printed and scanned into chart.
--- NOTE | 2021-08-22 12:37 | PC.NURSE ---
Pt placed on continuous cardiac, BP, and SpO2 monitoring upon arrival into room.
--- NOTE | 2021-08-22 12:41 | PC.NURSE ---
Two hours of direct, 1:1 pt care provided by this nurse.
--- NOTE | 2021-08-22 13:21 | PC.NURSE ---
addendum to initial assessment lung sounds left diminished with wheezes, right lung severely diminished.
--- NOTE | 2021-08-22 14:21 | P.HP_ITS ---
Providers/Chief Complaint Primary Care Provider: Tamika Chavis MD Chief Complaint: RESPIRATORY DISTRESS History of Present Illness Oswaldo Khan is a 75 year old male who presented with severe shortness of breath, noticed this morning. No cough or fever. Apparently oxygen saturation was low on EMS arrival. He had had some significant shortness of breath lately associated with near right mainstem bronchial obstruction secondary to metastatic colon cancer. Patient himself was sedate and unable to give history to me. History was obtained through son and ER physician. In the emergency department he was started on some diltiazem, given some fentanyl, Versed, lorazepam, and Lasix. Review of Systems General: Reports: ROS unobtainable due to medical condition (Sedate, very short of breath on nonrebreather) Medications/Allergies Home Medications Medication Instructions Recorded Confirmed Last Taken Type miscellaneous medical supply #1 ea 03/19/21 08/22/21 08/05/21 Rx acetaminophen 325 mg tablet 650 mg PO Q6H PRN #60 tab 07/01/21 08/22/21 08/05/21 Rx albuterol sulfate 2.5 mg/0.5 mL 2.5 mg (0.5 mL) INHALATION 07/01/21 08/22/21 08/05/21 Rx solution for nebulization Q4H.RESPIRATORY PRN #100 ea budesonide 0.5 mg/2 mL suspension 0.5 mg (2 mL) INHALATION 07/01/21 08/22/21 08/22/21 Rx for nebulization BID.RESPIRATORY #60 ml celecoxib 200 mg capsule 200 mg PO Q12H #60 cap 07/01/21 08/22/21 08/22/21 Rx docusate sodium 100 mg capsule 100 mg PO BEDTIME PRN #30 cap 07/01/21 08/22/21 08/05/21 Rx (Stool Softener) duloxetine 20 mg capsule,delayed 20 mg PO DAILY #30 cap 07/01/21 08/22/21 08/21/21 Rx release ipratropium 0.5 mg-albuterol 3 mg 3 ml INHALATION QID.RESPIRATORY 07/01/21 08/22/21 08/22/21 Rx (2.5 mg base)/3 mL nebulization #120 ml soln magnesium hydroxide 400 mg/5 mL 30 ml PO BID PRN #400 ml 07/01/21 08/22/21 0 08/05/21 Rx oral suspension (Milk of Magnesia) megestrol 20 mg tablet 20 mg PO BID #60 tab 07/01/21 08/22/21 08/22/21 Rx midodrine 5 mg tablet 5 mg PO Q8H #90 tab 07/01/21 08/22/21 08/22/21 Rx mirtazapine 15 mg disintegrating 15 mg PO BEDTIME #30 tab 07/01/21 08/22/21 08/22/21 Rx tablet morphine 15 mg tablet,extended 15 mg PO BID #60 tab 07/01/21 08/22/21 08/22/21 Rx release morphine concentrate 10 mg/0.5 mL 10 mg (0.5 mL) PO Q4H PRN #20 ml 07/01/21 08/22/21 08/05/21 Rx oral syringe (FOR ORAL USE ONLY) ondansetron 4 mg disintegrating 4 mg PO TID PRN #15 tab 07/01/21 08/22/21 08/05/21 Rx tablet oxycodone 5 mg capsule 5 mg PO Q6H PRN #60 cap 07/01/21 08/22/21 08/05/21 Rx pantoprazole 40 mg tablet,delayed 40 mg PO DAILY #30 tab 07/01/21 08/22/21 Rx release (Protonix) polyethylene glycol 3350 17 gram 17 g PO BID #60 ea 07/01/21 08/22/21 08/22/21 Rx oral powder packet prednisone 10 mg tablet 10 mg PO BID #60 tab 07/01/21 08/22/21 08/22/21 Rx sennosides 8.6 mg-docusate sodium 1 tab-cap PO BID #60 tab 07/01/21 08/22/21 08/22/21 Rx 50 mg tablet (Senna-S) tamsulosin 0.4 mg capsule 0.4 mg PO BEDTIME #30 cap 07/01/21 08/22/21 08/22/21 Rx albuterol sulfate 90 mcg/actuation 2 puff INHALATION Q6H PRN 08/05/21 08/22/21 08/05/21 History aerosol inhaler lactulose 10 gram oral packet 15 ml PO DAILY PRN 08/05/21 08/22/21 08/05/21 History Allergies Allergy/AdvReac Type Severity Reaction Status Date / Time No Known Allergies Allergy Verified 08/22/21 10:46 PFSH Acute PFSH: Medical History Acid reflux Adrenal insufficiency Anxiety about health Aspiration pneumonia BPH loc w urin obs/LUTS Chronic use of steroids Compression fx, thoracic spine Constipation, slow transit COPD (chronic obstructive pulmonary disease) Essential (primary) hypertension Fracture, thoracic vertebra, compression H/O colon cancer, stage III History of pulmonary embolus (PE) Lumbar compression fracture Lung cancer Malignant neoplasm of prostate 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, N1a, M0 Mediastinal lymphadenopathy Nocturia Other nonspecific abnormal finding of lung field Rectal cancer Sarcoidosis Secondary malignant neoplasm of right lung Small bowel obstruction Surgical History History of liver biopsy / Percutaneous abscess drainage Port-A-Cath in place S/P colon resection 2015 ([place]) -- sigmoid resection for colon cancer / cholecystectomy / incidental appendectomy / umbilical hernia repair S/P small bowel resection (05/18/21) For small bowel obstruction Family History Mother , 62 CAD (coronary artery disease) Diabetes Father , 74 Cancer Colon Social History Smoking and tobacco status: current every day smoker (8 cigs/ day) cigarettes Packs smoked per day: 1 Years cigarettes smoked: 45 [ Other cigarette details: currently down to half pack or so] Quit status (tobacco): has tried quititng Second hand smoke exposure: Yes Smoking risk assessment/counseling performed?: No Alcohol intake: never Desire information about alcohol rehabilitation?: No Counseling given: No Desire information about substance/drug rehabilitation?: No Counseling given: No Adopted: No Caregiver/support person: No Lives independently: Yes Household members: none Housing: House Marital status: Current occupational status: retired History of recent travel: No Current gender identity: Male Vitals/I&O/Wt Last Vital Signs Temp 97.7 F 08/22/21 09:52 Pulse 119 H 08/22/21 12:35 Resp 21 H 08/22/21 12:35 BP 101/64 08/22/21 12:35 Pulse Ox 96 08/22/21 12:35 08/21/21 08/22/21 08/22/21 22:59 06:59 14:59 Intake Total 5.375 / 5.375 Balance 5.375 / 5.375 Weight last 48 hrs Weight 72.575 kg Physical Exam Narrative: General exam was a minimally responsive male HEENT: Atraumatic normocephalic. Pupils small. Oropharynx clear. Nonrebreather noted. Neck is supple no lymphadenopathy thyromegaly Cardiovasculartachycardic, without murmur, regular Lungs diminished breath sounds bilaterally, with significantly diminished right breath sounds. Chest tube noted on the right. Abdomen is soft with positive bowel sounds. No obvious organomegaly but exam difficult in his current position on the side. I was reluctant to move him secondary to comfort reasons was deferred Extremities no cyanosis clubbing. 2+ edema noted bilaterally. Skin no rash Neuro: Sedate. Urinary Catheter Management: Mcarthur: Cath Placed During This Visit: yes Urinary Catheter Date of Insertion: 08/22/21 Urinary Catheter Time of Insertion: 12:13 Data : 08/22/21 10:12 08/22/21 10:12 Other Labs: Initial chest x-ray demonstrated large right-sided pneumothorax, expanded after chest tube placement EKG demonstrated sinus tachycardia, rate 130, normal axis, nonspecific ST-T wave changes Last ABG demonstrates pH 7.24, PCO2 of 83, PO2 of 87 on 100% FiO2 LFTs largely normal Troponin 38 with repeat of 35 Urinalysis negative A&P Assessment and plan (1) Acute respiratory failure with hypoxia and hypercapnia: Significant acute respiratory failure secondary to pneumothorax, as well as ma lignancy right mainstem bronchus with near complete occlusion found on recent bronchoscopy. He is now retaining a significant amount of CO2, and becoming lethargic I visited with the family, in detail regarding his current clinical state. According to family he is no longer a candidate for any kind of chemotherapy and this has been stopped. They report the quality of life is poor. He has recent ly voiced that he would not want any further procedures to a family member. Based upon this his son would like to progress to comfort measures only. We discussed what that would mean, focusing on pain control and removing the chest tube with expectations that his condition could worsen quickly. We will make this transition, to second floor for comfort measures. Orders were written. Status: Acute (2) Pneumothorax: See above. Planning on removing chest tube and progressing to comfort measures. Status: Acute (3) Secondary malignant neoplasm of right lung: Near complete occlusion of right mainstem bronchus on recent bronchoscopy. Not candidate for further chemotherapy according to family. Status: Acute (4) Malignant neoplasm of rectosigmoid junction: See above Status: Acute Plan Progressing to comfort measures. Attestations Medical Necessity Statement*: I think it is unlikely the patient will survive greater than 2 midnights, therefore observation. Needs hospitalization to provide comfort measures, including IV medication in this patient with pneumothorax. Coding Level of Care Code Acute Association Executive for Izabel Rojas Diagnoses Acute respiratory failure with hypoxia and hypercapnia J96.01; J96.02 Pneumothorax J93.9 Secondary malignant neoplasm of right lung C78.01 Malignant neoplasm of rectosigmoid junction C19
--- NOTE | 2021-08-22 16:42 | PC.NURSE ---
Chest tube removal 50mcg fentanyl IVP admin [address] Mojica notified Tube removed by Dr. Mojica. Incision sutured and covered with vaseline gauze and secured by foam tape by Dr. Mojica at 1534. 50mcg of fentanyl pused at same time.
--- NOTE | 2021-08-22 16:53 | PC.NURSE ---
Chest tube cannister and suction tubing used. Chest tube tray used.
[2021-08-22] MEDS: morphine 4 mg/mL SDV 1 mL IVP ×3 (19:16→22:12)
[2021-08-23] MEDS: LORazepam 2 mg/mL INJ 1 mL IVP ×4 (02:32→11:35)
[2021-08-23] MEDS: morphine 4 mg/mL SDV 1 mL IVP ×4 (02:32→11:35)
--- NOTE | 2021-08-23 07:37 | PC.NURSE ---
Per family wanted to turn patient's oxygen down some more. Patient breathing at 24/min and using accessory muscles at this itme oxy mask in place. PRN Morphine and Ativan given per family's request. Patient on right side resting comfortable at this time. No needs from family.
[2021-08-23 07:55] VITALS: BP 102/66; PULSE 135; RESP 20; TEMP 37.2; O2SAT 91
--- NOTE | 2021-08-23 10:04 | PM.PN ---
Subjective Subjective: Oswaldo appears comfortable. He is surrounded by his family, and they believe he is comfortable as well. Medications: Reviewed: Yes Vitals/I&O/Wt Last Vital Signs Temp 99.0 F 08/23/21 07:55 Pulse 135 H 08/23/21 07:55 Resp 20 H 08/23/21 07:55 BP 102/66 08/23/21 07:55 Pulse Ox 91 08/23/21 07:55 08/22/21 08/23/21 08/23/21 22:59 06:59 14:59 Intake Total 0 / 5.375 0 / 5.375 Output Total 1250 / 1250 Balance -1250 / -1244.625 0 / -1244.625 Weight last 48 hrs Weight 72.575 kg Physical Exam Narrative: General exam unresponsive Neck is supple no lymphadenopathy thyromegaly Cardiovasculartachycardic, without murmur, regular Lungs diminished breath sounds right greater than left Abdomen is soft with positive bowel sounds. No obvious organomegaly but exam difficult in his current position on the side. I was reluctant to move him secondary to comfort reasons Extremities no cyanosis clubbing. 2+ edema noted bilaterally. Skin no rash Neuro: Sedate. Urinary Catheter Management: Mcarthur: Cath Placed During This Visit: yes Reason for Continuing Indwelling Catheter: Hospice/Comfort/Palliative Care Urinary Catheter Date of Insertion: 08/22/21 Urinary Catheter Time of Insertion: 12:13 Data : 08/22/21 10:12 08/22/21 10:12 A&P Assessment and plan (1) Acute respiratory failure with hypoxia and hypercapnia: Significant acute respiratory failure secondary to pneumothorax, as well as malignancy right mainstem bronchus with near complete occlusion found on recent bronchoscopy. He is now retaining a significant amount of CO2, and becoming lethargic I visited with the family, in detail regarding his current clinical state. According to family he is no longer a candidate for any kind of chemotherapy and this has been stopped. They report the quality of life is poor. He has recently voiced that he would not want any further procedures to a family member. Based upon this his son would like to progress to comfort measures only. We discussed what that would mean, focusing on pain control and removing the chest tube with expectations that his condition could worsen quickly. We will make this transition, to second floor for comfort measures. Orders were written. Today, 08/23 he appears comfortable. Family is satisfied with his degree of comfort, and is sitting with him during this difficult situation. Status: Acute (2) Pneumothorax: See above. Planning on removing chest tube and progressing to comfort measures. Chest tube was removed on admission Status: Acute (3) Secondary malignant neoplasm of right lung: Near complete occlusion of right mainstem bronchus on recent bronchoscopy. Not candidate for further chemotherapy according to family. Status: Acute (4) Malignant neoplasm of rectosigmoid junction: See above Status: Acute Plan Continue comfort measures Attestations Medical Necessity Statement*: Needs continued hospitalization for comfort measures secondary to metastatic colon cancer, right mainstem bronchus near occlusion, pneumothorax right lung, large associated with respiratory failure. Coding Level of Care Code Acute Talent Management Specialist for Izabel Rojas Diagnoses Acute respiratory failure with hypoxia and hypercapnia J96.01; J96.02 Pneumothorax J93.9 Secondary malignant neoplasm of right lung C78.01 Malignant neoplasm of rectosigmoid junction C19
[2021-08-23 12:00] VITALS: BP 102/66; PULSE 135; RESP 20; TEMP 37.2
--- NOTE | 2021-08-23 12:42 | PC.NURSE ---
Ex came out of patient's room and notified this nurse that the patient was not breathing. This nurse verified with Radha RN TOD to be 1239. No breath sounds, chest rise, or heart rate detected.
--- NOTE | 2021-08-23 13:01 | PC.NURSE ---
Patient's son went with [facility] in [place]. [place]. Adult Basic Studies Teacher notified.
--- NOTE | 2021-08-23 13:08 | P.DES_ITS ---
Discharge Providers DDS Date of Admission: 08/22/21 14:22 Date Summary Completed: 08/23/21 Attending Provider at Admission: Mauricio Chavis MD Time of : 12:39 Attending Provider at Discharge: Mauricio Chavis MD Primary Care Provider: Tamika Chavis MD DS Diagnoses Hospital Diagnoses (1) Acute respiratory failure with hypoxia and hypercapnia: (2) Pneumothorax: (3) Secondary malignant neoplasm of right lung: (4) Malignant neoplasm of rectosigmoid junction: Permanent Problem Comments: Stage X - T3, N1a, M0 Reason for Visit Reason for Visit RESPIRATORY DISTRESS Summary Date and Time of Time of : 12:39 Summary Summary: Oswaldo is a 75-year-old white male admitted on August 22 with respiratory distress. He was found to have a tension pneumothorax. He had pre-existing near right mainstem bronchus obstruction, consistent with adenocarcinoma and previous history of colonic adenocarcinoma. He had recently not been deemed a candidate for chemotherapy. Chest tube was placed in the emergency department initially for tension pneumothorax. Long discussion occurred between ER physician, color artist, and myself with family at different times to determine what the patient's wishes would be. When I saw him his son was his advocate, as he had significant respiratory failure with hypercarbia. Family decided that he would want comfort measures only, and he was converted to comfort measures in the hospital. Chest tube removed. Patient peacefully on August 23, at 1239. Family was able to be present at bedside. Additional Data Advance directives?: Yes Discharge Plan Discharge Patient Disposition: Condition: Stable DS Attestations Time Spent in /Discharge Care*: greater than 30 min Quality - AMI: AMI present?: No Quality - Stroke: CVA present?: No Quality - VTE: VTE present?: No Coding Level of Care Code Acute Gis Coordinator for Chg Fwd Diagnoses Acute respiratory failure with hypoxia and hypercapnia J96.01; J96.02 Pneumothorax J93.9 Secondary malignant neoplasm of right lung C78.01 Malignant neoplasm of rectosigmoid junction C19
== END 2021-08-23 15:00 | disposition expired ==
LOC: ER 10:11 → MEDSURG 14:50
PROVIDERS: Admitting Provider Internal Medicine; Emergency Provider Family Medicine; PCP Family Medicine; Visit Provider Internal Medicine
DX: J96.01 Acute respiratory failure with hypoxia (principal); J96.02 Acute respiratory failure with hypercapnia; J93.9 Pneumothorax, unspecified; C78.01 Secondary malignant neoplasm of right lung; C19 Malignant neoplasm of rectosigmoid junction; K21.9 Gastro-esophageal reflux disease without esophagitis; N40.1 Benign prostatic hyperplasia with lower urinary tract symptoms; N13.8 Other obstructive and reflux uropathy; Z79.52 Long term (current) use of systemic steroids; J44.9 Chronic obstructive pulmonary disease, unspecified; I10 Essential (primary) hypertension; Z86.711 Personal history of pulmonary embolism; F17.210 Nicotine dependence, cigarettes, uncomplicated
CPT/HCPCS: 36415; 36600; 51702; 71045; 80051; 80053; 81003; 82330; 82550; 82803; 82805; 83605; 84484; 85025; 93005; 94660; 96365; 96366; 96375; 96376; 99291; 99292; C1713; G0378; J1940; J2060; J2250; J2270; J2405; J3010; J3490